=== PATIENT | male | born 1950 | race Caucasian/White ===

== ENCOUNTER 2018-01-03 15:56 | Emergency (ER) | payer BC, MEDICARE, SELFPAY ==
[2018-01-03 15:58] VITALS: BP 152/75; PULSE 66; RESP 16; TEMP 36.8; O2SAT 95; BMI 20.5
--- NOTE | 2018-01-03 16:10 | ED.VISSUMM ---
- ER Visit Summary Date of Service: 01/03/18 Chief Complaint: Urinary retention History of Present Illness: The patient is a 67 M with decreasing urine output for quite some time. Today he is only able to get a few drops out. He thinks he may have had strictures dilated many years ago but has not followed up. He denies any change in medications. He is not taking any decongestants. Physical Examination: Vital signs unremarkable. Patient seen in a bedside chair no acute distress. Heart is regular rate and rhythm. Lung sounds are clear Abdomen is soft with tenderness in the suprapubic region. Test Results: Urinalysis does show 10-25 white cells with rare bacteria. Emergency Department Course and Treatment: Patient was able to urinate only about 15-20 cc of urine. Bladder scan performed following this still showed 165 cc or so of urine. A 16 Yoruba catheter was attempted but unsuccessful. A 14 Yoruba coud? apparently was inserted to the hub, but they were unable to inflate the balloon. It was pulled out and the balloon was checked. When it was reinserted a coiled and patient did have some bleeding noted. Patient has been able to get up and ambulate since this but is only passing 15-20 cc of urine at a time. He states it is not bloody. Patient would prefer a trial without catheterization. I spoke with Dr. Vidal. Patient will be treated with an antibiotic. If patient worsens he will return and may require dilation at that time. Treatment Plan: [] Disposition: Discharge Impression: Cystitis This note was generated with [id number] dictation software. It may contain incorrect words, spelling, and punctuation that were not noted in review of the chart prior to signing ED Disposition - Plan for ED Patient: Chief Complaint: Complaint Referrals: NOT,DEFINED [NON-STAFF] -
[2018-01-03 17:22] LABS: Mucous, Urine 0 SEEN /hpf (<or=2+); Red Blood Cells-Urine 0 SEEN /hpf (0-5)
[2018-01-03 17:27] LABS: Color, Urine Yellow (Yellow); Glucose, Dipstick Normal (Normal); Ketone-Dipstick Negative (Negative); Leukocyte Esterase-Dipstick 500 /ul (Negative); Nitrite-Dipstick Negative (Negative); Occult Blood-Urine 10 /ul (Negative); Protein-Dipstick 15 mg/dl (Negative); Specific Gravity, Urine 1.015 (1.002-1.030); Urine Bilirubin Dipstick Negative (Negative); Urine Clarity Clear (Clear); Urine Urobilinogen Normal (Normal)
[2018-01-03] MEDS: Lidocaine Jelly 2% 20 ML Syringe (URO-JET) 20 APPLIC TOPICAL (17:52)
[2018-01-03 17:53] LABS: Squamous Epithelial Cells - UA 0-5 SEEN /hpf (0-5)
--- NOTE | 2018-01-03 17:53 | ED.RN ---
multiple cath attempts made. Initial cath was 16 stokes. unable to pass prostate. sterile insertion. second catheter was a 14 stokes with coude tip. catheter inserted to y. no urine output. resistance with attempts to inflate balloon. balloon no full inflated. second attempted made with coude catheter without completely removing from penis. dr called into room. when removing catheter blood was noted on catheter and small amount of blood on penis. odette smiley rn [id number]
[2018-01-03 17:54] LABS: Bacteria RARE /hpf (None Seen); White Blood Cells 10-25 SEEN /hpf (0-5)
--- NOTE | 2018-01-03 18:40 | ED.DEP ---
ED Disposition - Plan for ED Patient: Disposition: Home or Assisted Living Chief Complaint: Complaint Instructions: ED UTI Cystitis Male, ED Retention Urinary Male Prescriptions: Tamsulosin HCl [Flomax] 0.4 mg PO DAILY #7 capsule Ciprofloxacin [Cipro] 500 mg PO BID #6 tablet Referrals: Kelvin Vidal MD [STAFF PHYSICIAN] - As soon as possible
[2018-01-03 18:53] VITALS: PULSE 78; RESP 14; O2SAT 98
[2018-01-03] MEDS: Ciprofloxacin 500 MG Tablet PO (18:54)
== END 2018-01-03 18:55 | disposition home or self-care (01) ==
PROVIDERS: Emergency Provider Emergency Medicine
DX: N30.90 Cystitis, unspecified without hematuria (principal); Z72.0 Tobacco use
CPT/HCPCS: 51702; 81001; 87077; 87086; 87088; 99283

== ENCOUNTER 2018-01-09 13:51 | Day surgery (SDC) | payer MEDICARE, SELFPAY ==
[2018-01-09 14:12] VITALS: BP 135/69; PULSE 56; RESP 16; TEMP 36.8; O2SAT 97; BMI 20.3
--- NOTE | 2018-01-09 15:36 | DCINST_ITS ---
Discharge Diet: Light diet - advance as tolerated Discharge Activity: Return to Normal Activity Call your doctor if your incision/area has: Continuous Slow Oozing, Sudden Increased Bleeding, Increased Pain/ Swelling, Increased Redness Suture Line Care: Avoid Pulling/Pushing, Avoid Pinching/Bending Catheter: Batista to leg bag, Batista to large bag Drain: [place] Additional Instructions: take ibuprofen, tylenol, asprin for pain or discomfort use OTC AZO for burning. Allergies/Adverse Reactions: Allergies No Known Allergies Allergy (Verified 01/08/18 10:25) Medications to take at Discharge Tamsulosin HCl [Flomax] 0.4 mg PO DAILY #7 capsule 01/03/18 Ibuprofen [Ibuprofen Ib] 200 mg PO PRN PRN 01/08/18 Primary Care Physician: Care Physician,No Primary [Primary Care Provider] - Test Results: Test results from this visit will be discussed in further detail at your follow- up appointment, if applicable. Please Follow Up With: Kelvin Vidal MD When: in 2 weeks, please call to make an appointment.
[2018-01-09] MEDS: Cefazolin 2 GM in 0.9% Normal Saline 100 ML IV (15:40)
--- NOTE | 2018-01-09 16:07 | PCM.OPRPT ---
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 Post-Operative Diagnosis: Same Surgery/Procedure Performed:: Cystoscopy and direct vision internal urethrotomy and placement of a catheter over a wire Description of Surgical Findings:: 67-year-old male taken back to the operating room at the smooth induction of general anesthesia, is placed in dorsolithotomy position, penis and testicles are prepped and draped in usual sterile fashion, went into the urethra with a 24 Yoruba urethrotome entire length the urethra was okay once I came down to the bulbar urethra then there was a dense stricture to the urethrotome we put in the night set and then was able to get the wire through a little pinhole the wire went all the way up to the bladder to the pinhole and then I used the cold knife to cut at the 12 o'clock position and opened up the urethra scar tissue until I could see the sphincter the strictures in the bulbar urethra probably about 1.5 cm in length and was right before the sphincter after cutting his open went into the bladder no tumors were seen was we are seen within the bladder the prostate was normal, I then removed the urethrotome attend the place a Batista catheter however was going to the bladder saw him back in the wire into the bladder and then over the wire I placed a 20 Yoruba catheter that went into the bladder left the catheter in place flush the catheter and the patient anesthetic was reversed plan to see him in about 2 weeks to remove the catheter. Type of Anesthesia:: General Drains: 20 fr Batista - Admit VTE Documentation VTE Present on Admission: No
[2018-01-09 16:18] VITALS: BP 114/77; BP 135/69; PULSE 55; RESP 16; TEMP 36.7; O2SAT 95
[2018-01-09 16:30] VITALS: BP 112/49; BP 135/69; PULSE 56; RESP 16; O2SAT 97
[2018-01-09 16:45] VITALS: BP 127/82; BP 135/69; PULSE 52; RESP 16; TEMP 36.4; O2SAT 96
[2018-01-09 17:25] VITALS: BP 122/72; BP 135/69; PULSE 64; RESP 16; TEMP 36.3; O2SAT 97
== END 2018-01-09 17:30 | disposition home or self-care (01) ==
LOC: SDC 13:52 → AC 13:53
PROVIDERS: Referring Provider Urology; Visit Provider Urology
PROC: 0T7D8ZZ Dilation of Urethra, Via Natural or Artificial Opening Endoscopic (ICD-10-PCS; CPT 52276; principal; 2018-01-09 15:25)
DX: N35.812 Other bulbous urethral stricture, male (principal); R35.0 Frequency of micturition; R33.8 Other retention of urine; R39.12 Poor urinary stream; F17.200 Nicotine dependence, unspecified, uncomplicated; Z86.73 Personal history of transient ischemic attack (TIA), and cerebral infarction without residual deficits
CPT/HCPCS: 52276; J7120; C1769; J2405

== ENCOUNTER → 2018-05-11 14:39 | Outpatient (CLI) | payer MEDICARE, SELFPAY | PROVIDERS: Referring Provider Urology; Visit Provider Urology | DX: R30.0 Dysuria (principal) | CPT/HCPCS: 87077; 87086; 87088; 87186 ==

== ENCOUNTER → 2018-07-06 | Outpatient (CLI) | payer MEDICARE, SELFPAY ==
[2018-07-06 17:38] LABS: Absolute Lymphocyte Count 2.87 X10^3/ul (0.83-4.51); Absolute Neutrophil Count 9.1 X10^3/uL (2.0-7.7); Basophil# 0.02 X10^3/uL; Basophil% 0.1 % (0-1); Eosinophil# 0.19 X10^3/uL; Eosinophils% 1.4 % (0-5); Hematocrit 37.7 % (40-54); Hemoglobin 12.7 g/dl (13.0-16.5); Lymphocyte # 2.87 X10^3/ul (4.0); Lymphocyte % 20.8 % (19-41); Mean Corp Hgb Conc 33.7 g/gl (32-36); Mean Corpuscular Hgb 28.4 pg (27.0-32.0); Mean Corpuscular Volume 84.3 fL (80-94); Monocyte# 1.52 X10^3/uL; Neutrophil # 9.12 X10^3/uL (2.7-7.7); Neutrophil % 66.3 % (47-70); Platelet Count 456 K/mm3 (150-450); RBC Distribution Width CV 14.7 % (11.6-14.6); RBC Distribution Width SD 45.7 fl (35.1-43.9); Red Blood Count 4.47 M/mm3 (4.6-6.2); White Blood Count 13.8 K/mm3 (4.4-11.0)
[2018-07-06 17:39] LABS: Differential Indicated SCAN CRITERIA MET; POSITIVE COUNT NO; POSITIVE DIFFERENTIAL YES; POSITIVE MORPHOLOGY NO
[2018-07-06 18:39] LABS: Differential Comment SCANNED; Platelet Estimate SLT INC (ADEQ)
[2018-07-06 18:49] LABS: ALB/GLOB Ratio 0.6 RATIO (0.9-2.4); AST(SGOT) 15 U/L (15-37); Alanine Aminotransfer ALT/SGPT 20 U/L (16-61); Albumin, Serum 2.7 g/dL (3.2-5.0); Alkaline Phosphatase 623 U/L (45-117); Anion Gap 8 (5-15); BUN 18 mg/dL (7-18); Calcium,Total 9.1 mg/dL (8.5-10.1); Chloride 100 mmol/L (98-107); Creatinine, Serum 0.78 mg/dL (0.70-1.30); EST Glomerular Filtration Rate 105 mL/min (>60); Est Glom Filt Rate - Afr Amer 127 mL/min (>60); Globulin 4.9 g/dL (2.2-4.2); Glucose 98 mg/dL (74-106); PSA,Total- Diagnostic > 2000.00 ng/mL (0.0-4.0); Potassium 4.1 mmol/L (3.5-5.1); Protein, Total 7.6 g/dL (6.4-8.2); Sodium Level 136 mmol/L (136-145)
[2018-07-08 16:01] LABS: Pathologist Review Reviewed
== END | disposition home or self-care (01) ==
LOC: LAB 16:13
PROVIDERS: Family Provider Nurse Practitioner Family; PCP Nurse Practitioner Family; Referring Provider Nurse Practitioner Family; Visit Provider Nurse Practitioner Family
DX: C79.9 Secondary malignant neoplasm of unspecified site (principal)
CPT/HCPCS: 36415; 80053; 84153; 85025

== ENCOUNTER → 2018-07-28 16:45 | Outpatient (CLI) | payer MEDICARE, SELFPAY ==
--- NOTE | 2018-07-28 08:00 | PROSBIL_PTH ---
PATIENT: TAMIKO NAGY LOC: [facility] U#:[id number] AGE/SX: 74/M ROOM: RE07/28/[address]: Dr. Kelvin Vidal MD : [id number] BED: DIS: SPEC #: [id number] RECD: 07/28/18 16:48 STATUS: NEVAEH ESTRELLA #: [id number] ARTURO: 07/28/18 08:[address]: Kelvin Vidal DEPT: SURGICAL PATHOLOGY RECD BY: Jack Parks ENTERED: 07/29/18 09:27 SP TYPE: PROST BX JENNIFER DR: Xander Bolivar, CHALO-C Tissues: A - PROSTATE RIGHT B - PROSTATE RIGHT C - PROSTATE RIGHT D - PROSTATE LEFT E - PROSTATE LEFT F - PROSTATE LEFT Procedures: PROSTATE BX HEADER OPERATION: Prostate biopsy PRE-OP DIAGNOSIS: Elevated PSA TISSUE SUBMITTED: A - Right apex, B - Right mid, C - Right base, D - Left apex, E - Left mid, F - Left base MICROSCOPIC DIAGNOSIS A. Right prostate, apex, core biopsy: Adenocarcinoma: Angwin grade: 7 (4+3) Cores involved: 2 out of 2 Tissue involved: 80% Greatest tumor length: 3.5 mm Perineural invasion: Present B. Right prostate, mid, core biopsy: Adenocarcinoma: Angwin grade: 7 (3+4) Cores involved: 1 out of 1 Tissue involved: 60% Greatest tumor length: 4 mm Perineural invasion: Present C. Right prostate, base, core biopsy: Adenocarcinoma: Angwin grade: 7 (3+4) Cores involved: 1 out of 1 Tissue involved: 85% Greatest tumor length: 10 mm D. Left prostate, apex, core biopsy: Adenocarcinoma: Angwin grade: 7 (3+4) Cores involved: 1 out of 1 Tissue involved: 95% Greatest tumor length: 13 mm Perineural invasion: Present E. Left prostate, mid, core biopsy: Adenocarcinoma: Angwin grade: 7 (3+4) Cores involved: 1 out of 1 Tissue involved: 85% Greatest tumor length: 13 mm Perineural invasion: Present F. Left prostate, base, core biopsy: Adenocarcinoma: Denny grade: 7 (4+3) Cores involved: 1 out of 1 Tissue involved: 95% Greatest tumor length: 13 mm AM:fallon 07/30/18 COMMENT Case has been reviewed in consultation with Dr. Chisholm who concurs with the above diagnosis. IDC:CE MICROSCOPIC DESCRIPTION Slides are reviewed. GROSS DESCRIPTION A - Received is one container designated prostate, right apex. The specimen consists of two elongated fragments of light vazquez-white soft tissue each measuring 0.8 cm in length and 0.1 cm in diameter. The specimen is totally submitted in one cassette. B - Received is one container designated prostate, right mid. The specimen consists of one elongated fragment of light vazquez-white soft tissue measuring 1 cm in length and 0.1 cm in diameter. The specimen is totally submitted in one cassette. C - Received is one container designated prostate, right base. The specimen consists of one elongated fragment of light vazquez-white soft tissue measuring 1.5 cm in length and 0.1 cm in diameter. The specimen is totally submitted in one cassette. D - Received is one container designated prostate, left apex. The specimen consists of one elongated fragment of light vazquez-white soft tissue measuring 1.5 cm in length and 0.1 cm in diameter. The specimen is totally submitted in one cassette. E - Received is one container designated prostate, left mid. The specimen consists of one elongated fragment of light vazquez-white soft tissue measuring 1.5 cm in length and 0.1 cm in diameter. The specimen is totally submitted in one cassette. F - Received is one container designated prostate, left base. The specimen consists of one elongated fragment of light vazquez-white soft tissue measuring 1.5 cm in length and 0.1 cm in diameter. The specimen is totally submitted in one cassette. / AM:fallon 07/29/18 TC:0 [facility]: [id number]
== END ==
PROVIDERS: Family Provider Nurse Practitioner Family; PCP Nurse Practitioner Family; Referring Provider Urology; Visit Provider Urology
DX: R97.20 Elevated prostate specific antigen [PSA] (principal)
CPT/HCPCS: 88305; G0416

== ENCOUNTER → 2022-02-22 | Outpatient (CLI) | payer MEDICARE, SELFPAY ==
--- NOTE | 2022-02-22 08:36 | RAD_ITS ---
STUDY: X-RAY CHEST REASON FOR EXAM: Male, 71 years old. COUGH, SOB TECHNIQUE: PA and lateral views of the chest. COMPARISON: None. FINDINGS: Hyperinflation. Multiple pulmonary nodules in both lungs exhibit diffuse metastatic deposits. Normal size heart. Normal mediastinum and [place]ber[place]. Normal visualized pulmonary arteries. There is atherosclerotic calcification of the aortic arch with tortuosity. Diffuse sclerotic metastasis throughout the appendicular and axial skeletons as well as the ribs. Metastasis is seen involving both humeri. There is no demonstrated abnormality of the visualized soft tissue structures of the upper abdomen. RAD/Chest PA and Lateral IMPRESSION: Hyperinflation. Diffuse bilateral pulmonary nodules. Diffuse sclerotic metastasis involving appendicular and axial skeleton. Electronically Signed: Keyur Irvin MD at 9:06 EST ,
[2022-02-22 09:26] LABS: Hematocrit 40.2 % (40-54); Hemoglobin 13.2 g/dL (13.0-16.5); Mean Corp Hgb Conc 32.8 g/dL (32-36); Mean Corpuscular Hgb 28.9 pg (27.0-32.0); Mean Platelet Vol. 10.6 fl (6.2-12.0); Platelet Count 320 K/mm3 (150-450); RBC Distribution Width CV 13.6 % (11.6-14.6); Red Blood Count 4.57 M/mm3 (4.6-6.2); White Blood Count 13.3 K/mm3 (4.4-11.0)
[2022-02-22 09:50] LABS: ALB/GLOB Ratio 0.7 RATIO (0.9-2.4); AST(SGOT) 14 U/L (15-37); Alanine Aminotransfer ALT/SGPT 18 U/L (16-61); Albumin, Serum 3.2 g/dL (3.2-5.0); Alkaline Phosphatase 89 U/L (45-117); Anion Gap 7 (5-15); BUN 16 mg/dL (7-18); BUN/Creat Ratio 12.4 RATIO (10-20); Calcium,Total 9.3 mg/dL (8.5-10.1); Chloride 101 mmol/L (98-107); Creatinine, Serum 1.29 mg/dL (0.70-1.30); EST Glomerular Filtration Rate 58 mL/min (>60); Est Glom Filt Rate - Afr Amer 71 mL/min (>60); Globulin 4.4 g/dL (2.2-4.2); Glucose 126 mg/dL (74-106); Potassium 3.8 mmol/L (3.5-5.1); Protein, Total 7.6 g/dL (6.4-8.2); Sodium Level 136 mmol/L (136-145)
[2022-02-22 10:04] LABS: D-Dimer Quantitative (DVT/PE) 1.55 FEU/ug/m (0.27-0.49)
== END | disposition home or self-care (01) ==
PROVIDERS: PCP Nurse Practitioner Family; Referring Provider Nurse Practitioner Family; Visit Provider Nurse Practitioner Family
DX: C79.51 Secondary malignant neoplasm of bone (principal); R05.9 Cough, unspecified; R06.02 Shortness of breath; R91.8 Other nonspecific abnormal finding of lung field; J06.9 Acute upper respiratory infection, unspecified
CPT/HCPCS: 36415; 71046; 80053; 85027; 85379; 86140

== ENCOUNTER → 2022-07-25 | Outpatient (CLI) | payer MEDICARE, SELFPAY ==
[2022-07-25 12:03] LABS: Hematocrit 39.4 % (40-54); Hemoglobin 12.9 g/dL (13.0-16.5); Mean Corp Hgb Conc 32.7 g/dL (32-36); Mean Corpuscular Hgb 29.1 pg (27.0-32.0); Mean Corpuscular Volume 88.9 fL (80-94); Mean Platelet Vol. 10.6 fl (6.2-12.0); Platelet Count 294 K/mm3 (150-450); RBC Distribution Width CV 14.4 % (11.6-14.6); RBC Distribution Width SD 46.7 fl (35.1-43.9); RET-HE 33.3 pg (30-35); Red Blood Count 4.43 M/mm3 (4.6-6.2); Reticulocyte Count 2.18 % (0.5-1.5); White Blood Count 11.7 K/mm3 (4.4-11.0)
[2022-07-25 12:46] LABS: Cholesterol 165 mg/dL (200); Ferritin 108 ng/mL (26-388); High Density Lipoprotein 64 mg/dL; Iron 69 ug/dL (65-175); Iron Binding Capacity,Total 352 ug/dL (250-450); PERCENT IRON SATURATION 19.6 % (15.0-55.0); PSA,Total- Diagnostic 0.22 ng/mL (0.0-4.0); Triglycerides 186 mg/dL; Very Low Density Lipoprotein 37 mg/dL (5-40)
[2022-07-25 12:51] LABS: Vitamin D,25 Hydroxy 49.8 ng/mL
[2022-07-25 14:46] LABS: PTHIN 37.8 pg/mL (18.4-80.1)
[2022-08-02 15:08] LABS: Renin, Plasma 3.419 ng/mL/hr (0.167-5.380)
== END | disposition home or self-care (01) ==
PROVIDERS: PCP Nurse Practitioner Family; Referring Provider Nurse Practitioner Family; Visit Provider Nurse Practitioner Family
DX: N18.30 Chronic kidney disease, stage 3 unspecified (principal); C79.51 Secondary malignant neoplasm of bone; C61 Malignant neoplasm of prostate; D64.9 Anemia, unspecified; E78.5 Hyperlipidemia, unspecified
CPT/HCPCS: 36415; 80061; 82306; 82728; 83540; 83550; 83970; 84153; 84244; 85027; 85045

== ENCOUNTER → 2023-01-10 | Outpatient (CLI) | payer MEDICARE, SELFPAY ==
--- NOTE | 2023-01-11 06:58 | PFT ---
INTRODUCTION: The patient is a 72-year-old male who presents for pulmonary function studies secondary to a diagnosis of dyspnea. Respiratory therapy reported good patient effort. Bronchodilators were used during testing. INTERPRETATION: Forced expiration spirometry demonstrates the presence of a mild large airways obstructive ventilatory defect. There was a significant response to aerosolized bronchodilators. Spirograms are of good quality but do not plateau indicating slow emptying of the lungs. Body plethysmography was performed and revealed a decreased TLC to 6.0 L, 82% of predicted, indicative of a mild restrictive ventilatory impairment. Diffusing capacity by single breath CO is reduced to 45% of predicted. IMPRESSION: Partially reversible mild mixed ventilatory defect with disproportionate reduction in diffusing capacity.
== END | disposition home or self-care (01) ==
LOC: PSN 10:37
PROVIDERS: PCP Nurse Practitioner Family; Referring Provider Internal Medicine Critical Care Medicine; Visit Provider Internal Medicine Critical Care Medicine
DX: R06.00 Dyspnea, unspecified (principal)
CPT/HCPCS: 94060; 94726; 94729

== ENCOUNTER → 2023-01-21 | Outpatient (CLI) | payer MEDICARE, SELFPAY ==
[2023-01-21 13:59] VITALS: PULSE 62; PULSE 68; PULSE 70; PULSE 72; PULSE 77; PULSE 80; PULSE 81; PULSE 86; O2SAT 89; O2SAT 90; O2SAT 91; O2SAT 92; O2SAT 93; O2SAT 94
--- NOTE | 2023-01-22 10:06 | PCM.PSN.6M ---
PSN 6 Minute Walk Test 6 Minute Walk Test 6 Minute Walk Test: 6 Minute Walk Test PSN:6-Minute Walk Test Start: 01/21/23 13:58 Freq: Status: Active Protocol: RESP.6MINW Document 01/21/23 13:59 [facility] (Rec: 01/21/23 14:05 [facility] [id number]) 6 Minute Walk Test Date Performed 01/21/23 Time Performed 12:30 Height 5 ft 11 in Weight: 200 lb Weight in Pounds 200.[address]: Frandy Montiel Assistive device used: None Pre-test Oxygen Delivery Method Room Air Pulse Ox 93 Pulse Rate (60-100) 62 Dyspnea Berry Scale (0-10) 0 1st minute Oxygen Delivery Method Room Air Pulse Ox 94 Pulse Rate (60-100) 70 Dyspnea Berry Scale (0-10) 0 Number of Rests Taken 0 2nd minute Oxygen Delivery Method Room Air Pulse Ox 91 Pulse Rate (60-100) 72 Dyspnea Berry Scale (0-10) 1 Number of Rests Taken 0 3rd minute Oxygen Delivery Method Room Air Pulse Ox 89 Pulse Rate (60-100) 77 Dyspnea Berry Scale (0-10) 2 Number of Rests Taken 1 4th minute Oxygen Delivery Method Room Air Pulse Ox 93 Pulse Rate (60-100) 80 Dyspnea Berry Scale (0-10) 2 Number of Rests Taken 0 5th minute Oxygen Delivery Method Room Air Pulse Ox 90 Pulse Rate (60-100) 81 Dyspnea Berry Scale (0-10) 2 Number of Rests Taken 0 6th minute Oxygen Delivery Method Room Air Pulse Ox 92 Pulse Rate (60-100) 86 Dyspnea Berry Scale (0-10) 3 Number of Rests Taken 0 Reported Symptoms Increased Work of Breathing Post-test Oxygen Delivery Method Room Air Pulse Ox 92 Pulse Rate (60-100) 68 Dyspnea Berry Scale (0-10) 1 Full Laps Walked 16 Partial Lap, Number of Tiles Walked 0 Total Distance Walked (ft) 944 Interpretation Interpretation: The patient ambulated 944 feet over the course of 6 minutes beginning on room air without assistive devices. Pretesting oxygen saturation was noted to be 93% on room air. With ambulation, the juanita oxygen saturation was 89%. This represents a significant exertional oxygen desaturation. Recommendations Recommendations: There is no indication for the use of supplemental oxygen at this time. However, close interval follow-up was recommended, given the degree of oxygen desaturation noted during this study.
== END | disposition home or self-care (01) ==
PROVIDERS: PCP Nurse Practitioner Family; Referring Provider Internal Medicine Critical Care Medicine; Visit Provider Internal Medicine Critical Care Medicine
DX: R06.00 Dyspnea, unspecified (principal)
CPT/HCPCS: 94618

== ENCOUNTER → 2023-11-28 | Outpatient (CLI) | payer MEDICARE, SELFPAY ==
--- NOTE | 2023-11-28 14:35 | CT_ITS ---
ACR Level 3 findings have been noted. An addendum which confirms receipt of the report will follow. EXAM: CT CHEST, LUNG CANCER SCREENING WITHOUT INTRAVENOUS CONTRAST CLINICAL INDICATION: smoker quit 2019 1 pack per day for 50 years. TECHNIQUE: Helically acquired images were obtained of the chest without intravenous contrast using low dose (LDCT) lung cancer screening protocol. This CT exam was performed using one or more of the following dose reduction techniques: automated exposure control, adjustment of the mA and/or kV according to patient size, and/or use of iterative reconstruction technique. COMPARISON: Chest radiograph, 02/22/2022 FINDINGS: LUNGS AND PLEURAL SPACES: 2 mm granuloma in the right upper lobe. Centrilobular emphysema. Perifissural 4 mm nodule in the right upper lobe seen on image 124, series 2. Perifissural nodule measuring 4 mm along the minor fissure, (series 601, 82). No pleural effusion or thickening. No pneumothorax. HEART: Coronary artery calcifications. Heart size is normal. No pericardial effusion. MEDIASTINUM: No significant abnormality. No mediastinal or hilar adenopathy. Esophagus is unremarkable. No hiatal hernia. THYROID: No significant abnormality. No thyroid lesions. BONES/JOINTS: Diffuse lytic and sclerotic osseous lesions throughout the visualized osseous structures suggesting sclerotic metastasis. Degenerative changes in the spine. VASCULATURE: Atherosclerosis. LYMPH NODES: No significant abnormality. No enlarged lymph nodes. CT/Low Dose CT Lung Screening IMPRESSION: 1. Diffuse lytic and sclerotic osseous lesions throughout the visualized osseous structures suggesting sclerotic metastasis. 2. ACR Lung CT Screening Reporting And Data System (Lung-RADS) score: 2S - Benign Appearance or Behavior. Additional clinically significant or potentially clinically significant findings are described. Electronically Signed: Niels Clayton DO at 22:30 EDT ,
== END | disposition home or self-care (01) ==
PROVIDERS: PCP Nurse Practitioner Family; Referring Provider Nurse Practitioner Acute Care; Visit Provider Nurse Practitioner Acute Care
DX: F17.210 Nicotine dependence, cigarettes, uncomplicated (principal)
CPT/HCPCS: 71271

== ENCOUNTER → 2024-03-31 | Outpatient (CLI) | payer MEDICARE, SELFPAY ==
--- NOTE | 2024-03-31 08:04 | CDU_ITS ---
Reason For Study: Hx Carotid Stenosis Rt. Velocities/BP Lt. Velocities/BP Prox CCA 56.0/10.7 cm/sec. Prox CCA 6109/13.5 cm/sec. Mid CCA 55.1/14.5 cm/sec. Mid CCA 49.8/10.2 cm/sec. Dist CCA 55.1/16.3 cm/sec. Dist CCA 48.7/12.4 cm/sec. Prox ICA 259.6/88.2 cm/sec. Prox ICA 119.2/33.6 cm/sec. Mid ICA 106.0/24.8 cm/sec. Mid ICA 58.6/21.2 cm/sec. Dist ICA 53.1/22.3 cm/sec. Dist ICA 64.4/23.1 cm/sec. Rt. ICA/CCA = 4.7. Lt. ICA/CCA = 2.4. Prox ECA 67.4/9.7 cm/sec. Prox ECA 139.0/11.6 cm/sec. Rt. Vert. 76.5/16.3 cm/sec. Lt. Vert. 40.4/0.0 cm/sec. Right Extracranial There is heterogeneous, irregular atherosclerotic plaque noted in the right common carotid artery. There is heterogeneous, irregular atherosclerotic plaque noted in the right internal carotid artery. There is heterogeneous, irregular atherosclerotic plaque noted in the right external carotid artery. Antegrade flow is noted in the right vertebral artery. Left Extracranial There is heterogeneous, irregular atherosclerotic plaque noted in the left common carotid artery. There is heterogeneous, irregular atherosclerotic plaque noted in the left internal carotid artery. There is heterogeneous, irregular atherosclerotic plaque noted in the left external carotid artery. Antegrade flow is noted in the left vertebral artery. Procedure Carotid Duplex 65473. This is a Carotid Duplex examination using B-mode, color flow and specral Doppler. Exam performed in department. VL/Carotid Duplex Ultrasound Interpretation Summary Severe (>70%) stenosis right extracranial internal carotid. Mild (<50%) stenosis left extracranial internal carotid. Patent and antegrade vertebrals bilaterally. Ordering Physician: Gina Sharif Referring Physician: Gina Sharif Performed By: Rolly Zhu RVT and Student
--- NOTE | 2024-03-31 08:04 | ART_ITS ---
Reason For Study: PVD Procedure A bilateral lower extremity continuous wave Doppler with analog waveform analysis,segmental pressures,and ankle brachial indexes without exercise. Left Segmental Pressures Left brachial= 126mmHg. Left high thigh = 140mmHg. Left low thigh = 87mmHg. Left calf = 91mmHg. Left posterior tibial artery = 75mmHg. Left dorsalis pedis artery = 62mmHg. Left digit = 40 mmHg. The left dorsalis pedis waveforms are monophasic. The left posterior tibial artery waveforms are monophasic. Right Segmental Pressures Right brachial= 130mmHg. Right low thigh = 144mmHg. Right calf = 103mmHg. Right posterior tibial artery = 107mmHg. Right dorsalis pedis artery = 89mmHg. Right digit = 41 mmHg. The right dorsalis pedis waveforms are biphasic. The right posterior tibial artery waveforms are biphasic. Indices The right ankle brachial index by the dorsalis pedis is 0.68. The right ankle brachial index by the posterior tibial artery is 0.82. The right digital-brachial index is 0.32. The left ankle brachial index by the dorsalis pedis is 0.48. The left ankle brachial index by the posterior tibial artery is 0.58. The left digital-brachial index is 0.31. VL/Lower Ext Art Exam w/o Exercis Interpretation Summary Right LULA 0.82, moderate arterial insufficiency. Doppler/PVR waveforms and segm ental pressures reveal distal SFA/popliteal disease. Left LULA 0.58, moderate arterial insufficiency. Doppler/PVR waveforms and segme ntal pressures reveal proximal SFA disease. Ordering Physician: Gina Sharif Referring Physician: Xander Bolivar NP Performed By: Rolly Zhu RVT and Student
--- NOTE | 2024-03-31 08:04 | AAVD_ITS ---
Reason For Study: HX AAA Repair Aorta Measurements Aorta Doppler Measurements Proximal aorta measures2.07 x 1.98cm. in cross- Peak systolic flow velocities within the proximal sectional axis. aorta measure 79.6 cm/sec. Proximal aorta measures2.29cm. in longitudinal Peak systolic flow velocities within the mid aorta axis. measure 83.2 cm/sec. Mid aorta measures2.37 x 2.27cm. in cross- AAA Repair with EVAR noted sectional axis. Rt Limb Prox -61.4cm/s Mid aorta measures2.00cm. in longitudinal axis. Rt Limb Dist - 52.6 cm/s HX AAA Repair at Mid/Dist AO with EVAR. Lt Limb Prox - 57.0 cm/s Residual AAA measurese 4.22cm x 4.16cm Lt Limb Dist - 57.0 cm/s. Prox Rt EVAR Limb = 1.28cm x 1.22cm x 1.28cm Dist Rt EVAR Limb = 1.32cm x 1.30cm x 1.28cm Prox Lt EVAR Limb = 1.27cm x 1.23cm x 1.30cm Dist Lt EVAR Limb = 1.32cm x 1.30cm x 1.39cm. Left Iliac Artery Left iliac artery measures 1.18 x 1.18 cm. in the cross-sectional axis. Left iliac artery measures 1.18 cm. in the longitudinal axis. Right Iliac Artery Right iliac artery measures 1.04 x 1.04 cm. in the cross-sectional axis. Right iliac artery measures 1.14 cm. in the longitudinal axis. Peak systolic velocity in the right iliac artery measures 47.2 cm/sec. Procedure Aorta IVC Iliac vasculature or bypass grafts 40633. The exam was diagnostic. Exam performed in department. VL/Abd Aortic/IVC Duplex scan Interpretation Summary Patent aortic endograft with normal velocities and no evidence of stenosis. Residual aneurysm sac 4.22 cm with no endoleak visualized Ordering Physician: Gina Sharif Referring Physician: Xander Bolivar Performed By: Rolly Zhu RVT
== END | disposition home or self-care (01) ==
PROVIDERS: PCP Nurse Practitioner Family; Referring Provider Physician Assistant; Visit Provider Physician Assistant
DX: Z48.812 Encounter for surgical aftercare following surgery on the circulatory system (principal); I65.23 Occlusion and stenosis of bilateral carotid arteries
CPT/HCPCS: 93880; 93923; 93978

== ENCOUNTER → 2024-10-01 | Outpatient (CLI) | payer MEDICARE, SELFPAY ==
--- NOTE | 2024-10-01 10:45 | CDU_ITS ---
Reason For Study Reason For Study: Right ICA stenosis Rt. Velocities/BP Lt. Velocities/BP Prox CCA 58.9/6.9 cm/sec. Prox CCA 68.1/11.5 cm/sec. Mid CCA 54.1/10.7 cm/sec. Mid CCA 47.6/10.2 cm/sec. Dist CCA 50.4/8.8 cm/sec. Dist CCA 48.7/10.2 cm/sec. Prox ICA 243.4/59.2 cm/sec. Prox ICA 119.2/20.4 cm/sec. Mid ICA 135.7/22.5 cm/sec. Mid ICA 73.1/8.2 cm/sec. Dist ICA 84.6/22.5 cm/sec. Dist ICA 73.6/20.6 cm/sec. Rt. ICA/CCA = 4.50. Lt. ICA/CCA = 2.50. Prox ECA 62.6/4.1 cm/sec. Prox ECA 169.7/13.8 cm/sec. Rt. Vert. 70/22.5 cm/sec. Lt. Vert. 44.3/10.2 cm/sec. Right Extracranial There is heterogeneous, irregular atherosclerotic plaque noted in the right common carotid artery. There is heterogeneous, irregular atherosclerotic plaque noted in the right internal carotid artery. There is heterogeneous, irregular atherosclerotic plaque noted in the right external carotid artery. Antegrade flow is noted in the right vertebral artery. Left Extracranial There is heterogeneous, irregular atherosclerotic plaque noted in the left common carotid artery. There is heterogeneous, irregular atherosclerotic plaque noted in the left internal carotid artery. There is heterogeneous, irregular atherosclerotic plaque noted in the left external carotid artery. Antegrade flow is noted in the left vertebral artery. Procedure Carotid Duplex 21709. This is a Carotid Duplex examination using B-mode, color flow and specral Doppler. Exam performed in department. VL/Carotid Duplex Ultrasound Interpretation Summary Moderate (50-69%) stenosis right extracranial internal carotid. Mild (<50%) stenosis left extracranial internal carotid. Patent and antegrade vertebrals bilaterally. Ordering Physician: Gina Sharif Referring Physician: Xander Bolivar Performed By: Janine Toure RVT
== END | disposition home or self-care (01) ==
LOC: CVS 10:44
PROVIDERS: PCP Nurse Practitioner Family; Referring Provider Physician Assistant; Visit Provider Physician Assistant
DX: I65.21 Occlusion and stenosis of right carotid artery (principal)
CPT/HCPCS: 93880

== ENCOUNTER → 2024-11-29 | Outpatient (CLI) | payer MEDICARE, SELFPAY ==
--- NOTE | 2024-11-29 13:28 | CT_ITS ---
PROCEDURE: LOW DOSE CT LUNG SCREENING 11/29/2024 REASON FOR EXAM: SMOKER QUIT 2019 TECHNIQUE: Procedure Code: [id number] Modality: CT Procedure: LOW DOSE CT LUNG SCREENING Coronal and Sagittal reconstruction series were provided. One or more dose reduction techniques were used (e.g., Automated exposure control, adjustment of the mA and/or kV according to patient size, use of iterative reconstruction technique). REFERENCE LINK: [employer] Lung-RADS RADIATION DOSE SUMMARY: CTDlvol: 3.18 mGy DLP: 107.6 mGycm COMPARISON: CT chest dated 11/2023 FINDINGS: PULMONARY NODULES: (Only nodules >3mm are reported) Nodules described below are on series 2 unless otherwise specified. Pulmonary Nodules: No suspicious pulmonary nodule. Hardware:Status post median sternotomy Lymph Nodes:Shotty mediastinal lymph nodes stable since previous exams Heart and Vasculature:Mild cardiomegaly.Atherosclerotic calcifications of the thoracic aorta. Thoracic aorta and pulmonary arteries have normal contours; noncontrast technique limits evaluation. Calcifications of the aortic leaflets and mitral annulus. Status post CABG. Lungs and Airways: Severe emphysematous changes with bullous emphysema. Parenchymal scarring seen in the left lower lobe posteriorly. Patent airway. Pleura:No effusion. No pneumothorax. Upper Abdomen:Within normal limits Bones:Diffuse sclerotic metastases throughout the skeleton CT/Low Dose CT Lung Screening IMPRESSION: Diffuse lytic and sclerotic lesions throughout the bone consistent with diffuse metastatic disease. Severe emphysematous changes throughout the lung. Stable mediastinal lymph nodes unchanged. No suspicious pulmonary nodule. No change since previous exam. Lung-RADS Category: 1 NEGATIVE. RECOMMEND 12-MONTH SCREENING LDCT. Other Significant Findings: Diffuse metastatic disease throughout the bone, unc hanged. Mediastinal lymphadenopathy, stable. Reading Location: [facility]
== END | disposition home or self-care (01) ==
LOC: CT 13:15
PROVIDERS: PCP Nurse Practitioner Family; Referring Provider Nurse Practitioner Acute Care; Visit Provider Nurse Practitioner Acute Care
DX: Z12.2 Encounter for screening for malignant neoplasm of respiratory organs (principal); F17.210 Nicotine dependence, cigarettes, uncomplicated
CPT/HCPCS: 71271

== ENCOUNTER → 2025-01-17 | Outpatient (CLI) | payer MEDICARE, SELFPAY | END | disposition home or self-care (01) | LOC: PSN 12:08 | PROVIDERS: PCP Nurse Practitioner Family; Referring Provider Nurse Practitioner Acute Care; Visit Provider Nurse Practitioner Acute Care | DX: J44.89 Other specified chronic obstructive pulmonary disease (principal) | CPT/HCPCS: 94060; 94726; 94729 ==

== ENCOUNTER → 2025-01-18 | Outpatient (CLI) | payer MEDICARE, SELFPAY ==
--- OUTSIDE RECORDS SUMMARY | 2025-01-18 13:38 | XMS RPT_ITS | CCD ---
Author Organization [facility] Care Team Providers Care Transportation Attendant Name Role Phone OSMEL JACKSON - SILVERIO RAO Primary Care Phys ician Silverio Bolivar CNP Primary Care Provider Kelvin Vidal Unavailable Rogelio Bee MD Unavailable Gordo DUNBAR, Meagan Unavailable Silverio Bolivar CNP Primary Care Provider Kelvin Vidal Unavailable Rogelio Bee MD Unavailable Gordo DUNBAR, Meagan Unavailable Silverio Bolivar CNP Primary Care Provider Kelvin Vidal Unavailable Gordo DUNBAR, Meagan Unavailable Silverio Bolivar CNP Primary Care Provider [phone] Silverio Bolivar CNP Primary Care Provider [phone] Kelvin Vidal MD Unavailable Rogelio Bee MD Unavailable Gordo DUNBAR, Meagan Unavailable Kelvin Vidal MD Unavailable [phone] Gordo DUNBAR, Meagan Unavailable Luis Miguel Guy MD Unavailable Tanja Toro Unavailable Unavailabl e Rogelio Bee MD Unavailable Osmel HAND STEMMER, HAND STEMMER-C Silverio Soriano Primary Care Pr ovider Osmel HAND STEMMER, HAND STEMMER-C Silverio Soriano Referring Provi rain Dinesh, Dr. Wise Attending Provider [phone] Dinesh, Dr. iWse Referring Provider Dinesh, Dr. Wise Other Provider Emile, Dr. Boyle Attending Provider [phone] Osmel PET TRAINER, Silverio Mosley Primary Care Provider OSMEL SHUTTLE ROUTE VEHICLE OPERATOR - PET TRAINER, SILVERIO Mosley Primary Care U navailable OSMEL SHUTTLE ROUTE VEHICLE OPERATOR - PET TRAINER, SILVERIO Mosley Attending U navailable OSMEL SHUTTLE ROUTE VEHICLE OPERATOR - PET TRAINER, SILVERIO Mosley Primary Care U navailable OSMEL SHUTTLE ROUTE VEHICLE OPERATOR - PET TRAINER, SILVERIO Mosley Attending U navailable OSMEL SHUTTLE ROUTE VEHICLE OPERATOR - PET TRAINER, SILVERIO Mosley Primary Care U navailable OSMEL SHUTTLE ROUTE VEHICLE OPERATOR - PET TRAINER, SILVERIO Mosley Attending U navailable OSMEL SHUTTLE ROUTE VEHICLE OPERATOR - PET TRAINER, SILVERIO Mosley Attending U navailable OSMEL SHUTTLE ROUTE VEHICLE OPERATOR - PET TRAINER, SILVERIO Mosley Primary Care U navailable Claudia Smith Unavailable JAIR DE, JULIUS Peterson Attending Unavailabl e OSMEL SHUTTLE ROUTE VEHICLE OPERATOR - PET TRAINER, SILVERIO Mosley Primary Care U navailable OSMEL SHUTTLE ROUTE VEHICLE OPERATOR - PET TRAINER, SILVERIO Mosley Primary Care U navailable OSMEL SHUTTLE ROUTE VEHICLE OPERATOR - PET TRAINER, SILVERIO Mosley Attending U navann ADAM MD, JULIUS Peterson Attending Unavailabl e OSMEL SHUTTLE ROUTE VEHICLE OPERATOR - PET TRAINER, SILVERIO Mosley Primary Care U navailable RHIANNA DE, ETHAN Hoover Consulting Unavailable FISH SHUTTLE ROUTE VEHICLE OPERATOR-PET TRAINEREVI Referring Unavailab adrianna ESTRADA MD, DR ARENAS Admitting Unav ann ADAM MD, JULIUS Peterson Consulting Unavailabl kayla SEXTON MD, BECKY Kirk Consulting Unava lisandra ADAM MD, JULIUS Peterson Attending Unavailabl e OSMEL SHUTTLE ROUTE VEHICLE OPERATOR - PET TRAINER, SILVERIO Mosley Primary Care U navailable LUIS MIGUEL GUY Referring Unavailable OSMEL, SILVERIO Mosley Primary Care Unavailable LUIS MIGUEL GUY Referring Unavailable OSMEL, SILVERIO Mosley Primary Care Unavailable Michel DE, Jack Unavailable OSMEL SHUTTLE ROUTE VEHICLE OPERATOR - PET TRAINER, SILVERIO Mosley Attending U navailable OSMEL SHUTTLE ROUTE VEHICLE OPERATOR - PET TRAINER, SILVERIO Mosley Primary Care U navailable OSMEL SHUTTLE ROUTE VEHICLE OPERATOR - PET TRAINER, SILVERIO Mosley Attending U navailable OSMEL SHUTTLE ROUTE VEHICLE OPERATOR - PET TRAINER, SILVERIO Mosley Primary Care U navailable OSMEL SHUTTLE ROUTE VEHICLE OPERATOR - PET TRAINER, SILVERIO Mosley Attending U navailable OSMEL SHUTTLE ROUTE VEHICLE OPERATOR - PET TRAINER, SILVERIO Mosley Primary Care U navailable OSMEL SHUTTLE ROUTE VEHICLE OPERATOR - PET TRAINER, SILVERIO Mosley Primary Care U navailable FISH SHUTTLE ROUTE VEHICLE OPERATOR-PET TRAINER, EVI Attending Unavailab le OSMEL SHUTTLE ROUTE VEHICLE OPERATOR - PET TRAINER, SILVERIO Mosley Primary Care U navailable FROMMELT DO, OSMEL Attending Unavailable OSMEL SHUTTLE ROUTE VEHICLE OPERATOR - PET TRAINER, SILVERIO Mosley Primary Care U navailable FISH SHUTTLE ROUTE VEHICLE OPERATOR-PET TRAINER, EVI Attending Unavailab le OSMEL SHUTTLE ROUTE VEHICLE OPERATOR - PET TRAINER, SILVERIO Mosley Primary Care U navailable MCKEON SHUTTLE ROUTE VEHICLE OPERATOR-PET TRAINER, JOSE Attending Unavailabl e OSMEL SHUTTLE ROUTE VEHICLE OPERATOR - PET TRAINER, SILVERIO Mosley Primary Care U navailable OSMEL SHUTTLE ROUTE VEHICLE OPERATOR - PET TRAINER, SILVERIO Mosley Attending U JENI Reynaga MD Attending Unavailable JENI FREIRE MD Primary Care Unavailable JENI FREIRE MD Admitting Unavailable TAN OBRIEN MD Admitting Unavailable TAN OBRIEN MD Attending Unavailable TAN OBRIEN MD Primary Care Unavailable Vilas HAND STEMMER-CSilverio Primary Care Provi rain Gina Cobb Attending Provider Gina Cobb Referring Provider Dr. Sreedhar Coppola MD Attending Provider Osmel ISABEL-C, Silverio Soriano Primary Care Physi jenniffer Gina Cobb Attending Physician Dr. Sreedhar Coppola MD Attending Physician Luis ISABEL-Claudia Kirk Attending Physician [phone] Luis ISABEL-CClaudia Referring Provider ROGELIO BEE Referring Unavailable SILVERIO BOLIVAR Primary Care Unavailable LUIS MIGUEL GUY Attending Unavailable LUIS MIGUEL GUY Referring Unavailable SLIVERIO BOLIVAR Primary Care Unavailable LUIS MIGUEL GUY Attending Unavailable SILVERIO BOLIVAR Primary Care Unavailable LUIS MIGUEL GUY Referring Unavailable OSMEL, SILVERIO Melany Primary Care Unavailable JACK PEARSON Referring Unavailable ABRAMLUIS MIGUEL SHEARER Referring Unavailable OSMEL, SILVERIO Melany Primary Care Unavailable OSMEL, SILVERIO D Primary Care Unavailable JACK PEARSON Attending Unavailable LUIS MIGUEL GUY Referring Unavailable OSMEL, SILVERIO Melany Primary Care Unavailable JACK PEARSON Attending Unavailable OSMEL, SILVERIO Mosley Primary Care Unavailable MICHELJACK Referring Unavailable OSMEL, SILVERIO Melany Primary Care Unavailable JACK PEARSON Referring Unavailable OSMEL, SILVERIO Melany Primary Care Unavailable LUIS MIGUEL GUY Referring Unavailable OSMEL, SILVERIO Melany Primary Care Unavailable OSMEL, SILVERIO Melany Primary Care Unavailable JACK PEARSON Attending Unavailable JACK PEARSON Referring Unavailable ROGELIO BEE Referring Unavailable OSMEL, SILVERIO Mosley Primary Care Unavailable LUIS MIGUEL GUY Attending Unavailable LUIS MIGUEL GUY Referring Unavailable OSMEL, SILVERIO Melany Primary Care Unavailable ROGELIO BEE Referring Unavailable OSMEL, SILVERIO Mosley Primary Care Unavailable LUIS MIGUEL GUY Attending Unavailable LUIS MIGUEL GUY Referring Unavailable OSMEL, SILVERIO Melany Primary Care Unavailable LUIS MIGUEL GUY Referring Unavailable OSMEL, SILVERIO Melany Primary Care Unavailable LUIS MIGUEL GUY Attending Unavailable OSMEL, SILVERIO Mosley Primary Care Unavailable ROGELIO BEE Referring Unavailable OSMEL, SILVERIO Mosley Primary Care Unavailable OSMEL, SILVERIO Melany Primary Care Unavailable JACK PEARSON Referring Unavailable OSMEL, SILVERIO Melany Primary Care Unavailable JACK PEARSON Referring Unavailable JACK PEARSON Referring Unavailable OSMEL, SILVERIO Mosley Primary Care Unavailable LUIS MIGUEL GUY Referring Unavailable OSMEL, SILVERIO Melany Primary Care Unavailable OSMEL, SILVERIO Melany Primary Care Unavailable MICHEL DANAILA Referring Unavailable OSMEL, SILVERIO Melany Primary Care Unavailable MICHEL DANAILA Referring Unavailable OSMEL, SILVERIO Melany Primary Care Unavailable MICHELLEYDIUNG Attending Unavailable OSMEL, SILVERIO Mosley Primary Care Unavailable MICHEL DAISIAHUNG Referring Unavailable OSMEL, SILVERIO Melany Primary Care Unavailable MICHEL DAISIAHUNG Attending Unavailable MICHEL DAISIAHUNG Referring Unavailable OSMEL, SILVERIO Mosley Primary Care Unavailable MICHEL DAISIAHUNG Attending Unavailable MICHEL, DAISIAHUNG Referring Unavailable Osmel HAND STEMMERZoieC, Silverio Soriano Primary Care [facility] Gina Cobb Attending Physician Kole TURNER, Gina Referring Provider [phone] Anat DE, Dr. Eli Attending Physician Luis HAND STEMMER-C, Claudia Attending Physician Smith HAND STEMMER-C, Claudia Referring Provider Osmel HAND STEMMER-C, Silverio Soriano Referring Provider Vilas HAND STEMMER, Silverio Bo Primary Care Unav ailable Smith HAND STEMMER, Claudia Attending Unavailable Smith HAND STEMMER, Claudia Referring Unavailable Sharif, Gina Referring Unavailable Sharif, Gina Attending Unavailable Osmel HAND STEMMER, Silverio Bo Primary Care Unav ailable Sharif, Gina Referring Unavailable Madison, Sreedhar Attending Unavailable Vilas HAND STEMMER, Silverio Bo Primary Care Unav ailable Sharif, Gina Referring Unavailable Anat, Sreedhar Attending Unavailable Vilas HAND STEMMER, Silverio Bo Primary Care Unav ailable Osmel HAND STEMMER, Silverio Bo Referring Unav ailable Vilas HAND STEMMER, Silverio Bo Primary Care Unav ailable Smith HAND STEMMER, Claudia Attending Unavailable Vilas HAND STEMMER, Silverio Bo Primary Care Unav ailable Osmel HAND STEMMER, Silverio Bo Referring Unav ailable Sharif, Gina Attending Unavailable Sharif, Gina Referring Unavailable Sharif, Gina Attending Unavailable Vilas HAND STEMMER, Silverio Bo Primary Care Unav ailable Vilas HAND STEMMER, Sivlerio Bo Primary Care Unav ailable Smith HAND STEMMER, Claudia Attending Unavailable Smith HAND STEMMER, Claudia Referring Unavailable Vilas HAND STEMMER, Silverio Bo Primary Care Unav ailable Smith HAND STEMMER, Claudia Attending Unavailable Smith HAND STEMMER, Claudia Referring Unavailable Allergies Allergy Classification Reported Allergen(s) Allergy Type Date of Onset Reaction(s) Facility (20 sources) tiZANidine; Translations: [tizanidine] Drug Allergy 3 Unsteady when standing (finding), Drowsy (finding) [facility] Comment on above: drowsy/ unsteady on feet/ loopy (1 source) tiZANidine Drug Allergy 5 [facility] Repository Medications Current Medications Medication Drug Class(es) Dates Sig (Normalized) Sig (Original) acetaminophen 650 mg oral tablet (20 sources) Start: 05-13-2024 acetaminophen Dose : 650 mg = 2 tab(s), Oral, q4h, PRN Pain, scale 1-10, 0 Refill(s) Start Date: 05/13/24 Status: Ordered Repeat number: 1 take 1 tablet by rj th every eight hours as needed acetaminophen (TYLENOL EXTRA STRENGTH) 5 00 mg tablet Take 500 mg by mouth every 8 hours as needed. Active Adult Aspirin Regimen 81 mg oral delayed release tablet (13 sources) Start: 02-14-2023 Adult Aspirin Regimen 81 mg oral delayed release tablet Dose : 81 mg = 1 tab(s), Oral, qDay, # 90 tab(s), 1 Refill(s), Pharmacy: [facility], 180, cm, 02/14/23 9:48:00 EST, Height, kg, 02/14/23 9:48:00 EST, Dosing Weight Start Date: 02/14/23 Status: Ordered Quantity: 90.0 Unit: tab(s) Repeat number: 2 Start: 02-14-2023 Adult Aspirin Regimen 81 mg oral delayed release tablet Dose : 81 mg = 1 tab(s), Oral, qDay, # 90 tab(s), 1 Refill(s), Pharmacy: [facility], 180, cm, 02/14/23 9:48:00 EST, Height, kg, 02/14/23 9:48:00 EST, Dosing Weight Start Date: 02/14/23 Status: Ordered Start: 01-24-2022 Adult Aspirin Regimen 81 mg oral delayed release tablet Dose : 81 mg = 1 tab(s), Oral, qDay, # 90 tab(s), 1 Refill(s), [facility], 180, cm, 01/24/22 10:29:00 EST, Height, kg, 01/24/22 10:29:00 EST, Dosing Weight Start Date: 01/24/22 Status: Ordered Start: 05-25-2021 Adult Aspirin Regimen 81 mg oral delayed release tablet Dose : 81 mg = 1 tab(s), Oral, qDay, # 30 tab(s), 6 Refill(s) Start Date: 05/25/21 Status: Ordered aspirin 81 mg delayed release oral tablet (20 sources) Platelet Aggregation Inhibitor, Nonsteroidal Anti-inflammatory Drug Start: 05-14-2021 take 1 tablet by mouth once daily Comment on above: Take 1 tablet by rj th once daily. atorvastatin 40 mg oral tablet (20 sources) HMG-CoA Reductase Inhibitor Start: 12-28-2024 take 1 table t by mouth once daily Start: 05-13-2024 atorvastatin 4 0 mg oral tablet Dose : 40 mg = 1 tab(s), Oral, qDay, # 90 tab(s), 1 Refill(s), Pharmacy: [id number], 177.8, cm, 06/10/24 14:30:00 EDT, Height, kg, 06/10/24 14:30:00 EDT, Dosing Weight Start Date: 06/10/24 Status: Ordered Quantity: 90.0 Unit: tab(s) Repeat number: 2 B-complex with vitamin C (SUPER B COMPLEX-VITAMIN C ORAL) (20 sources) take 1 tablet by mouth once daily B-complex with vitamin C (SUPER B COMPLEX-VITAMIN C ORAL) Take 1 tablet by mouth once daily. Active take 1 tablet by mouth once jak y B-complex with vitamin C (SUPER B COMPLEX- VITAMIN C ORAL) Take 1 tablet by mouth once daily. 0 Active Comment on above: Take 1 tablet by rj th once daily. bumetanide 1 mg oral tablet (2 sources) Loop Diuretic Start: 05-13-2024 Bumex Dose : 1 mg = 1 tab(s), Oral, qAM, 0 Refill(s) Start Date: 05/13/24 Status: Ordered Repeat number: 1 calcium carbonate 1500 mg oral tablet (6 sources) Start: 01-01-2023 take 1 tablet by mouth once daily Start: 10-08-2018 take 1 tablet by rj th once daily Caltrate 600 + D oral tablet Dose = 1 tab(s), Oral, Daily, 0 Refill(s) Start Date: 10/08/18 Status: Ordered clopidogrel 75 mg oral tablet (20 sources) [id number] Platelet Inhibitor Start: 12-28-2024 take 1 tablet by mouth once daily Start: 05-13-2024 Plavix 75 mg o ral tablet Dose : 75 mg = 1 tab(s), Oral, qDay, # 90 tab(s), 1 Refill(s), Pharmacy: [facility], 177.8, cm, 06/10/24 14:30:00 EDT, Height, kg, 06/10/24 14:30:00 EDT, Dosing Weight Start Date: 06/10/24 Status: Ordered Quantity: 90.0 Unit: tab(s) Repeat number: 2 docusate sodium 100 mg oral capsule (20 sources) Start: 10-29-2019 take 1 capsule by mouth every twelve hours as needed docusate sodium (COLACE) 100 mg capsule Take 1 capsule by mouth twice daily as needed. 10/29/2019 Active Comment on above: Take 1 capsule by mo uth twice daily as needed. enzalutamide 40 mg oral capsule (20 sources) Androgen Receptor Inhibitor Start: 02-24-2024 take 4 tablets by mouth once daily enzalutamide (XTANDI) 40 mg tablet Take 4 tablets (160mg) by mouth once daily as directed by physician. 120 tablet 10 02/24/2024 Active Start: 03-12-2023 End: 04-28-2024 take 4 capsules by mouth once daily in the evening enzalutamide (XTANDI) 40 mg capsule Indications: Malignant neoplasm of prostate (HCC) Take 4 capsules (160mg) by mouth once daily. 120 capsule 11 10/05/2024 1:54 PM EDT 04/29/2024 Active Start: 02-14-2023 take 1 tablet by rj once daily Start: 12-24-2022 take 4 capsules by m outh once daily enzalutamide (XTANDI) 40 mg Indications: Malignant neoplasm of prostate (HCC) Take 4 capsules (160mg) by mouth once daily. 120 capsule 5 12/24/2022 Active Comment on above: Take 4 capsules (160 mg) by mouth once daily. famotidine 20 mg oral tablet (20 sources) Histamine-2 Receptor Antagonist Start: 12-28-2024 take 1 tablet by mouth twice daily Start: 05-24-2024 End: 11-20-2024 take 1 tablet by mouth twice daily famotidine (PEPCID) 20 mg tablet Take 20 mg by mouth two times a day. 05/24/2024 11/20/2024 Active Rdrrpkbybir-Emzgcfres-Yoxiqd er (15 sources) Start: 03-11-2024 Start: 03-11-2024 Start: 03-11-2024 Fluticasone-Um eclidin-Vilanter (Trelegy Ellipta) 200-62.5-25 mcg blister with device Active 1 NMA INHALATION DAILY 3 March 11, 2024 9:04am Start: 04-10-2023 End: 03-11-2024 Bnjwpindhjl-Lqspssjqd-Pxghvg er (Trelegy Ellipta) 200-62.5-25 mcg blister with device Discontinued 1 NMA INHALATION DAILY 3 April 10, 2023 7:57am March 11, 2024 8:04am Start: 04-10-2023 End: 03-11-2024 Cqclabwkljk-Rxlidkzzp-Lulnso er (Trelegy Ellipta) 200-62.5-25 mcg blister with device Discontinued 1 NMA INHALATION DAILY 3 April 10, 2023 8:57am March 11, 2024 9:04am Start: 04-10-2023 End: 04-10-2023 Vvxcgonecxw-Abznesinx-Pvcslw er (Trelegy Ellipta) 200-62.5-25 mcg blister with device Discontinued 1 NMA INHALATION DAILY 3 April 10, 2023 7:56am April 10, 2023 7:57am Start: 04-10-2023 End: 04-10-2023 Gxxzzukdhrz-Mdtqzbnwn-Vbxekv er (Trelegy Ellipta) 200-62.5-25 mcg blister with device Discontinued 1 NMA INHALATION DAILY 3 3 April 10, 2023 8:56am April 10, 2023 8:57am Start: 03-18-2023 End: 04-10-2023 Lnkdmiaqvds-Bpnnenuad-Secysl er (Trelegy Ellipta) 200-62.5-25 mcg blister with device Discontinued 1 NMA INHALATION DAILY 60 March 18, 2023 2:05pm April 10, 2023 7:57am Start: 03-18-2023 End: 04-10-2023 Blduwyrtimj-Ejgnpbgvk-Zbmplz er (Trelegy Ellipta) 200-62.5-25 mcg blister with device Discontinued 1 NMA INHALATION DAILY 60 March 18, 2023 3:05pm April 10, 2023 8:57am Start: 03-11-2023 End: 03-18-2023 Gjiqreucwrh-Tpfjuepgt-Qhjxaj er (Trelegy Ellipta) 200-62.5-25 mcg blister with device Discontinued 1 NMA INHALATION DAILY 60 March 11, 2023 12:00am March 18, 2023 2:05pm Start: 03-11-2023 End: 03-18-2023 Mmqlesmvwzh-Dxnuwpmpf-Seaqeh er (Trelegy Ellipta) 200-62.5-25 mcg blister with device Discontinued 1 NMA INHALATION DAILY 60 March 11, 2023 1:00am March 18, 2023 3:05pm pwnzmankazc-iqsgqolzb-aptcll er (TRELEGY ELLIPTA) 200-62.5-25 mcg inhalation powder (20 sources) take 1 puff(s) by inhalation once daily bgyledklvai-xktprylve-wveksxam (TRELEGY ELLIPTA) 200-62.5-25 mcg inhalation powder Inhale 1 Puff as instructed once daily. Active take 1 puff(s) by in halation once daily xyahvqvzmag-lrepzsqwo-tqhsjavg (TRELEGY ELLIPTA) 200-62.5-25 mcg inhalation powder Inhale 1 Puff as instructed once daily. 0 Active Comment on above: Inhale 1 Puff as ins tructed once daily. hydroCHLOROthiazide 12.5 mg oral capsule (20 sources) Thiazide Diuretic Start: hydroCHLOROthiazide 12.5 mg oral capsule Dose : 12.5 mg = 1 cap(s), Oral, qDay, # 90 cap(s), 1 Refill(s), Pharmacy: [facility], HTN, goal below 140/90, 180, cm, 07/19/21 11:20:00 EDT, Height, kg, 07/19/21 11:20:00 EDT, Dosing Weight Start Date: 01/14/22 Status: Ordered Start: 04-16-2021 hydroCHLOROthi azide 12.5 mg oral capsule Dose : 12.5 mg = 1 cap(s), Oral, qDay, # 90 cap(s), 2 Refill(s), Pharmacy: [facility], HTN, goal below 140/90, 180, cm, 01/19/21 10:51:00 EST, Height, kg, 01/19/21 10:51:00 EST, Dosing Weight Start Date: 04/16/21 Status: Ordered Start: 07-13-2020 End: 04-09-2021 hydroCHLOROthiazide 12.5 mg oral capsule Dose : 12.5 mg = 1 cap(s), Oral, qDay, # 90 cap(s), 2 Refill(s), Pharmacy: [facility], HTN, goal below 140/90, 180, cm, 07/13/20 10:34:00 EDT, Height, kg, 07/13/20 10:34:00 EDT, Dosing Weight Start Date: 07/13/20 Stop Date: 04/09/21 Status: Ordered take 1 tablet by rj th once daily hydroCHLOROthiazide (HYDRODIURIL, ESIDRIX) 12.5 mg tablet Take 12.5 mg by mouth once daily. Active Comment on above: Take 12.5 mg by mout h once daily. 24 hr isosorbide mononitrate 30 mg extended release oral tablet (1 source) Nitrate Vasodilator Start: 04-23-2024 isosorbide mononitrate 30 mg oral tablet, extended release Dose : 30 mg = 1 tab(s), Oral, qAM, # 30 tab(s), 5 Refill(s), Pharmacy: [facility], 178, cm, 03/25/24 14:07:00 EST, Height, kg, 04/19/24 9:07:00 EST, Dosing Weight Start Date: 04/23/24 Status: Ordered Quantity: 30.0 Unit: tab(s) Repeat number: 6 iv contrast (will be provided with radiology test) (20 sources) Start: 12-03-2019 iv contrast (will be provided with radiology test) CT Chest W -Inject, intravenously, once for 1 dose.No IV access, insert saline lock prior to the beginning of sedation, infusion, injection of imaging exam. Discontinue saline lock post exam. If Pt. has a central line or IVAD, may access for administration according to line specific nursing protocol. Once exam is complete flush line and de-access according to line specific nursing protocol in the CT contrast administration guidelines link. 1 Each 12/03/2019 Active Start: 12-03-2019 iv contrast (w ill be provided with radiology test) CT Chest W -Inject, intravenously, once for 1 dose.No IV access, insert saline lock prior to the beginning of sedation, infusion, injection of imaging exam. Discontinue saline lock post exam. If Pt. has a central line or IVAD, may access for administration according to line specific nursing protocol. Once exam is complete flush line and de-access according to line specific nursing protocol in the CT contrast administration guidelines link. 1 Each 0 12/03/2019 Active Comment on above: CT Chest W -Inject, intravenously, once for 1 dose.No IV access, insert saline lock prior to the beginning of sedation, infusion, injection of imaging exam. Discontinue saline lock post exam. If Pt. has a central line or IVAD, may access for administration according to line specific nursing protocol. Once exam is complete flush line and de-access according to line specific nursing protocol in the CT contrast administration guidelines link. Lopressor 25mg--USE metoprolol tartrate 25 mg oral tablet (13 sources) Start: 02-26-2024 Lopressor 25mg--USE metoprolol tartrate 25 mg oral tablet Dose : 12.5 mg = 0.5 tab(s), Oral, BID, # 90 tab(s), 1 Refill(s), Pharmacy: [facility], 178, cm, 02/24/24 9:56:00 EST, Height, kg, 02/24/24 9:56:00 EST, Dosing Weight Start Date: 02/26/24 Status: Ordered Quantity: 90.0 Unit: tab(s) Repeat number: 2 Start: 11-18-2023 Lopressor 25mg --USE metoprolol tartrate 25 mg oral tablet Dose : 12.5 mg = 0.5 tab(s), Oral, BID, # 90 tab(s), 0 Refill(s), Pharmacy: [facility] 177, cm, 09/04/23 8:14:00 EDT, Height, kg, 09/04/23 8:14:00 EDT, Dosing Weight Start Date: 11/18/23 Status: Ordered Start: 08-08-2023 Lopressor 25mg --USE metoprolol tartrate 25 mg oral tablet Dose : 12.5 mg = 0.5 tab(s), Oral, BID, # 90 tab(s), 0 Refill(s), Pharmacy: [facility] 178, cm, 05/09/23 9:38:00 EST, Height, kg, 05/09/23 9:38:00 EST, Dosing Weight Start Date: 08/08/23 Status: Ordered Start: 08-02-2022 End: 01-29-2023 Lopressor 25mg--USE metoprol ol tartrate 25 mg oral tablet Dose : 12.5 mg = 0.5 tab(s), Oral, BID, # 90 tab(s), 1 Refill(s), Pharmacy: [facility], 180, cm, 08/02/22 8:30:00 EDT, Height, kg, 08/02/22 8:30:00 EDT, Dosing Weight Start Date: 08/02/22 Stop Date: 01/29/23 Status: Ordered Start: 05-17-2021 End: 02-11-2022 Lopressor 25mg--USE metoprol ol tartrate 25 mg oral tablet Dose : 12.5 mg = 0.5 tab(s), Oral, BID, # 90 tab(s), 2 Refill(s), 180, cm, 04/20/21 14:12:00 EST, Height, kg, 04/20/21 14:12:00 EST, Dosing Weight Start Date: 05/17/21 Stop Date: 02/11/22 Status: Ordered Metoprolol (20 sources) beta-Adrenergic Brian Start: 05-13-2024 metopr olol Dose : 12.5 mg =, Oral, BIDM, 0 Refill(s) Start Date: 05/13/24 Status: Ordered Repeat number: 1 Start: 10-07-2018 End: 06-04-2021 take 1 tablet by mouth twice daily metoprolol tartrate, short acting, (LOPRESSOR) 25 mg tablet TAKE 1/2 (ONE-HALF) TABLET BY MOUTH TWICE DAILY 30 tablet 2 10/07/2018 Active Start: 07-30-2018 Start: 07-30-2018 take 12.5 mg by mout h twice daily Metoprolol Tartrate Active 12.5 MG PO TWICE A DAY July 29, 2018 11:00pm Comment on above: TAKE 1/2 (ONE-HALF) TABLET BY MOUTH TWICE DAILY naproxen 250 mg oral tablet (3 sources) Nonsteroidal Anti-inflammatory Drug Start: 5 naproxen 250 mg oral tablet Dose : 250 mg = 1 tab(s), Oral, BID, # 180 tab(s), 0 Refill(s) Start Date: 03/25/24 Status: Ordered Quantity: 180.0 Unit: tab(s) Repeat number: 1 potassium chloride 20 meq oral tablet (2 sources) Start: 5 potassium chloride 20 mEq oral tablet, extended release Dose : 20 mEq = 1 tab(s), Oral, qDay, 0 Refill(s) Start Date: 05/13/24 Status: Ordered Repeat number: 1 tamsulosin hydrochloride 0.4 mg oral capsule (20 sources) alpha-Adrenergic Brian Start: 4 End: 5 take 1 capsule by mouth at bedtime Start: 01-03-2018 End: 07-30-2018 take 1 capsule by mouth once daily Tamsulosin 0.4 MG capsule Discontinued 0.4 mg PO DAILY 7 January 02, 2018 11:00pm July 30, 2018 9:07am Comment on above: Take 1 capsule by [facility] once daily. Trelegy Ellipta 100 mcg-62.5 mcg-25 mcg/inh inhalation powder (11 sources) Start: 02-14-2023 take 1 dose by mouth once daily Trelegy Ellipta 100 mcg-62.5 mcg-25 mcg/inh inhalation powder Dose = 1 puff(s), Inhalation, qDay, at the same time every day. Following administration, rinse mouth with water after use (do not swallow)., # 60 EA, 0 Refill(s) Start Date: 02/14/23 Status: Ordered Quantity: 60.0 Unit: EA Repeat number: 1 Start: 02-14-2023 take 1 dose by mouth once daily Trelegy Ellipta 100 mcg-62.5 mcg-25 mcg/inh inhalation powder Dose = 1 puff(s), Inhalation, qDay, at the same time every day. Following administration, rinse mouth with water after use (do not swallow)., # 60 EA, 0 Refill(s) Start Date: 02/14/23 Status: Ordered triamcinolone acetonide 1 mg/ml topical cream (20 sources) Corticosteroid Start: 02-26-2024 triamcinolone 0.1% topical cream See Instructions, to affected area BID, # 30 gram(s), 1 Refill(s), Pharmacy: [id number], Cream, 178, cm, 02/24/24 9:56:00 EST, Height, 101.3, kg, 02/24/24 9:56:00 EST, Dosing Weight Start Date: 02/26/24 Status: Ordered Quantity: 30.0 Unit: g Repeat number: 2 Start: 02-14-2023 triamcinolone 0.1% topical cream See Instructions, to affected area BID, # 30 gram(s), 3 Refill(s), Pharmacy: [facility], Cream, 180, cm, 02/14/23 9:48:00 EST, Height, 96.5, kg, 02/14/23 9:48:00 EST, Dosing Weight Start Date: 02/14/23 Status: Ordered Start: 01-01-2023 End: 12-28-2024 Triamcinolone Acetonide 0.1 % cream Discontinued 1 NMA TOPICAL TWICE A DAY December 31, 2022 11:00pm December 28, 2024 12:40pm Start: 01-01-2023 End: 01-07-2023 Triamcinolone Acetonide ([place] acort Allergy) 55 mcg aerosol,spray Discontinued 2 NMA INTRANASAL DAILY December 31, 2022 11:00pm January 07, 2023 8:47am administer into each nostril Start: 01-01-2023 End: 01-07-2023 take 1 spray(s) nasal route once daily Triamcinolone Acetonide (Nasacort Allergy) 55 mcg aerosol,spray Discontinued 2 SPRAY INTRANASAL DAILY December 31, 2022 11:00pm January 07, 2023 8:47am administer into each nostril Start: 08-02-2022 triamcinolone 0.1% topical cream See Instructions, to affected area BID, # 30 gram(s), 3 Refill(s), Pharmacy: [facility], Cream, 180, cm, 08/02/22 8:30:00 EDT, Height, 94.8, kg, 08/02/22 8:30:00 EDT, Dosing Weight Start Date: 08/02/22 Status: Ordered Start: 07-24-2021 triamcinolone 0.1% topical cream See Instructions, to affected area BID, # 30 gram(s), 3 Refill(s), Pharmacy: [facility], Cream, 180, cm, 07/19/21 11:20:00 EDT, Height, 90.6, kg, 07/19/21 11:20:00 EDT, Dosing Weight Start Date: 07/24/21 Status: Ordered Start: 04-20-2021 End: 05-20-2021 take 1 dose nasal route once daily Nasacort Allergy 24HR 55 mcg/inh nasal spray Dose = 2 spray(s), Nostril, each, qDay, # 10 mL, 0 Refill(s), Pharmacy: [facility], Nasal congestion with rhinorrhea, 180, cm, 04/20/21 14:12:00 EST, Height, kg, 04/20/21 14:12:00 EST, Dosing Weight Start Date: 04/20/21 Stop Date: 05/20/21 Status: Ordered Start: 04-20-2021 take 2 spray(s) nasa l route once daily triamcinolone acetonide (NASACORT AQ) 55 mcg nasal inhaler Use 2 Sprays in each nostril once daily. 04/20/2021 Active Start: 02-21-2020 triamcinolone 0.1% topical cream See Instructions, to affected area BID, # 30 gram(s), 3 Refill(s), Pharmacy: [facility], Cream, 180, cm, 01/13/20 10:16:00 EST, Height, 91.9, kg, 01/13/20 10:16:00 EST, Dosing Weight Start Date: 02/21/20 Status: Ordered Start: 02-21-2020 triamcinolone 0.1% topical cream See Instructions, to affected area BID, # 30 gram(s), 3 Refill(s), Pharmacy: [id number], Cream, 180, cm, 01/13/20 10:16:00 EST, Height, 91.9, kg, 01/13/20 10:16:00 EST, Dosing Weight Start Date: 02/21/20 Status: Ordered Comment on above: Use 2 Sprays in each nostril once daily. valsartan 160 mg oral tablet (3 sources) Angiotensin 2 Receptor Brian Start: 03-16-2024 valsartan 160 mg oral tablet Dose : 160 mg = 1 tab(s), Oral, Daily, # 30 tab(s), 1 Refill(s), Pharmacy: [facility], 178, cm, 02/24/24 9:56:00 EST, Height, kg, 02/24/24 9:56:00 EST, Dosing Weight Start Date: 03/16/24 Status: Ordered Quantity: 30.0 Unit: tab(s) Repeat number: 2 Vitamin B Complex 100 (6 sources) Start: 03-25-2024 take 1 capsule by mouth once daily Vitamin B Complex 100 Dose = 1 cap(s), Oral, Daily, 0 Refill(s) Start Date: 03/25/24 Status: Ordered Repeat number: 1 Start: 03-25-2024 Vitamin B Comp majo 100 0 Refill(s) Start Date: 03/25/24 Status: Ordered Repeat number: 1 Vitamin B Complex capsule (3 sources) Start: 05-14-2023 Start: 05-14-2023 Start: 05-14-2023 Vitamin B Comp majo capsule Active 1 NMA PO DAILY May 14, 2023 1:00am Completed/Discontinued Medications Medication Drug Class(es) Dates Sig (Normalized) Sig (Original) abiraterone acetate 250 mg oral tablet (20 sources) Cytochrome P450 17A1 Inhibitor Start: 09-12-2021 End: 12-24-2022 take 4 tablets by mouth once daily abiraterone (ZYTIGA) 250 mg tablet Indications: Malignant neoplasm of prostate (HCC) Take 4 tablets (1,000mg) by mouth once daily. 120 tablet 2 11/26/2022 12/24/2022 Discontinued (Course of therapy completed) Start: 06-05-2021 take 4 tablets by mo uth once daily abiraterone (ZYTIGA) 250 mg tablet Indications: Malignant neoplasm of prostate (HCC) , Bone metastases (HCC) Take 4 tablets (1,000mg) by mouth once daily. 120 tablet 2 06/05/2021 Active Start: 10-08-2018 End: 01-07-2023 take 1 tablet by mouth once daily 1 hour(s) after mealtime Abiraterone (Zytiga) 250 mg tablet Discontinued 1000 mg PO DAILY December 31, 2022 11:00pm January 07, 2023 8:47am must be taken on empty stomach, at least 1 hr before or 2 hrs after a meal/food Comment on above: Take 4 tablets (1,00 0mg) by mouth once daily. acetaminophen 325 mg / HYDROcodone bitartrate 10 mg oral tablet (6 sources) Opioid Agonist Start: 07-31-19 End: 01-02-20 Hydrocodone-Acetamin ophen ([place]) 10-325 mg tablet Discontinued 1 {tbl} PO TWICE A DAY as needed 0 July 29, 2018 11:00pm January 01, 2023 11:42am [id number] 200 actuat albuterol 0.09 mg/actuat metered dose inhaler (19 sources) beta2-Adrenergic Agonist Start: 02-15-20 End: 08-13-19 take 1 puff(s) by inhalation every four hours ProAir HFA MDI (90 mcg/inh) inhalation aerosol 1 puff(s), Inhalation, q4h, # 3 EA, 1 Refill(s), Pharmacy: [facility], COPD without exacerbation, 180, cm, 02/14/23 9:48:00 EST, Height, kg, 02/14/23 9:48:00 EST, Dosing Weight Start Date: 02/14/23 Stop Date: 08/13/23 Status: Ordered Quantity: 3.0 Unit: EA Repeat number: 2 Indication: Chronic obstructive pulmonary disease, unspecified Start: 01-01-2023 Start: 01-01-2023 Albuterol Sulf ate Active 1 INH INHALATION Q4H December 31, 2022 11:00pm Start: 08-02-2022 End: 01-29-2023 take 1 puff(s) by inhalation every four hours ProAir HFA MDI (90 mcg/inh) inhalation aerosol 1 puff(s), Inhalation, q4h, # 3 EA, 1 Refill(s), Pharmacy: [facility], COPD without exacerbation, 180, cm, 08/02/22 8:30:00 EDT, Height, kg, 08/02/22 8:30:00 EDT, Dosing Weight Start Date: 08/02/22 Stop Date: 01/29/23 Status: Ordered Start: 01-19-2021 End: 01-15-2022 take 1 puff(s) by inhalation every four hours ProAir HFA MDI (90 mcg/inh) inhalation aerosol 1 puff(s), Inhalation, q4h, # 3 EA, 1 Refill(s), Pharmacy: [facility], COPD without exacerbation, 180, cm, 07/19/21 11:20:00 EDT, Height, kg, 07/19/21 11:20:00 EDT, Dosing Weight Start Date: 07/19/21 Stop Date: 01/15/22 Status: Ordered Start: 07-13-2020 End: 04-09-2021 take 1 puff(s) by inhalation every four hours ProAir HFA MDI (90 mcg/inh) inhalation aerosol 1 puff(s), Inhalation, q4h, # 3 EA, 2 Refill(s), Pharmacy: [id number], COPD without exacerbation, 180, cm, 07/13/20 10:34:00 EDT, Height, kg, 07/13/20 10:34:00 EDT, Dosing Weight Start Date: 07/13/20 Stop Date: 04/09/21 Status: Ordered apixaban 5 mg oral tablet (1 source) Factor Xa Inhibitor Start: 10-31-2020 Eliquis 5 mg oral tablet Dose : 5 mg = 1 tab(s), Oral, BID, 0 Refill(s), 92 Start Date: 10/31/20 Status: Ordered bicalutamide 50 mg oral tablet (6 sources) Androgen Receptor Inhibitor Start: 07-30-2018 End: 01-01-2023 take 1 tablet by mouth once daily Bicalutamide 50 mg tablet Discontinued 50 mg PO DAILY July 29, 2018 11:00pm January 01, 2023 11:43am calcium carbonate 1500 mg / cholecalciferol 800 unt chewable tablet (20 sources) Vitamin D Start: 02-11-2023 End: 05-14-2023 Calcium Carbonate-Vitamin D3 (Caltrate 600 Plus D) 600 mg-20 mcg (800 unit) tablet,chewable Discontinued 1 {tbl} PO DAILY February 11, 2023 12:00am May 14, 2023 8:27am Start: 10-08-2018 take 1 tablet by rj th once daily Caltrate 600 + D oral tablet Dose = 1 tab(s), Oral, Daily, 0 Refill(s) Start Date: 10/08/18 Status: Ordered Repeat number: 1 Start: 07-31-2018 take 1 tablet by rj once daily calcium carbonate-vitamin D3 (OSCAL+D) 500 mg(1,250mg) -400 unit chewable tablet Take 1 tablet by mouth once daily. 60 tablet 2 07/31/2018 Active Comment on above: Take 1 tablet by [facility] once daily. ibuprofen 200 mg oral tablet (6 sources) Nonsteroidal Anti-inflammatory Drug Start: 01-09-20 End: 07-31-19 Ibuprofen 200 MG tablet Discontinued 200 mg PO NEEDED as needed for Pain January 07, 2018 11:00pm July 30, 2018 9:07am 1.5 ml leuprolide acetate 15 mg/ml prefilled syringe (4 sources) Gonadotropin Releasing Hormone Receptor Agonist Start: 09-25-19 End: 09-25-19 inject 1 dose by intramuscular injection once 22.5 mg, INTRAMUSCULAR, ONCE, 1 dose, On Fri09/24/24 at 1200, Hazardous Chemotherapy Drug: Use appropriate PPE. Start: 02-18-2024 End: 02-18-2024 inject 1 dose by intramuscular injection once 22.5 mg, INTRAMUSCULAR, ONCE, 1 dose, On Fri02/18/24 at 1400, Hazardous Chemotherapy Drug: Use appropriate PPE. Start: 11-26-2023 End: 11-26-2023 inject 1 dose by intramuscular injection once 22.5 mg, INTRAMUSCULAR, ONCE, 1 dose, On Fri11/26/23 at 1130, Hazardous Chemotherapy Drug: Use appropriate PPE. Start: 09-03-2023 End: 09-03-2023 leuprolide 22.5 mg injection (LUPRON DEPOT) loratadine 10 mg oral tablet (1 source) Start: 04-20-2021 End: 05-04-2021 loratadine 10 mg oral tablet Dose : 10 mg = 1 tab(s), Oral, qDay, # 14 tab(s), 0 Refill(s), Pharmacy: [facility], Nasal congestion with rhinorrhea, 180, cm, 04/20/21 14:12:00 EST, Height, kg, 04/20/21 14:12:00 EST, Dosing Weight Start Date: 04/20/21 Stop Date: 05/04/21 Status: Ordered LORazepam 1 mg oral tablet (6 sources) Benzodiazepine Start: 07-30-2018 End: 01-01-2023 take 1 tablet by mouth at bedtime as needed Lorazepam 1 mg tablet Discontinued 1 mg PO AT BEDTIME as needed July 29, 2018 11:00pm January 01, 2023 11:42am meloxicam 15 mg oral tablet (6 sources) Nonsteroidal Anti-inflammatory Drug Start: 07-30-2018 End: 01-01-2023 take 1 tablet by mouth once daily Meloxicam (Mobic) 15 mg tablet Discontinued 15 mg PO DAILY July 29, 2018 11:00pm January 01, 2023 11:42am pantoprazole 40 mg delayed release oral tablet (20 sources) Proton Pump Inhibitor Start: 03-09-2024 take 1 tablet by mouth once daily Pantoprazole 40 mg tablet,delayed release (DR/EC) Discontinued 40 mg PO daily March 09, 2024 1:00am Start: 01-01-2024 End: 03-01-2024 pantoprazole 40 mg oral ente som coated tablet Dose : 40 mg = 1 tab(s), Oral, qDay, # 90 tab(s), 1 Refill(s), Pharmacy: [facility], GERD (gastroesophageal reflux disease), 178, cm, 02/24/24 9:56:00 EST, Height, kg, 02/24/24 9:56:00 EST, Dosing Weight Start Date: 02/26/24 Status: Ordered Quantity: 90.0 Unit: tab(s) Repeat number: 2 Indication: Gastro-esophageal reflux disease without esophagitis predniSONE 5 mg oral tablet (20 sources) Start: 10-08-2018 End: 06-27-2022 take 1 tablet by mouth once daily predniSONE (DELTASONE) 5 mg tablet Take 1 tablet by mouth once daily. 90 tablet 2 06/27/2022 Active Comment on above: Take 1 tablet by rj th once daily. TAKE 1 TABLET ONCE D AILY ramipril 5 mg oral capsule (20 sources) Angiotensin Converting Enzyme Inhibitor Start: 01-07-2023 End: 12-28-2024 take 2 capsules by mouth once daily Ramipril 5 mg capsule Discontinued 10 mg PO DAILY January 07, 2023 8:46am December 28, 2024 12:40pm Start: 01-07-2023 take 10 mg by mouth once daily Ramipril Active 10 MG PO DAILY January 07, 2023 8:46am Start: 01-01-2023 End: 01-07-2023 take 1 capsule by mouth once daily Ramipril 5 mg capsule Discontinued 5 mg PO DAILY December 31, 2022 11:00pm January 07, 2023 8:47am Start: 06-18-2019 End: 06-04-2021 take 1 capsule by mouth once daily ramipril (ALTACE) 10 mg capsule Take 10 mg by mouth once daily. 06/18/2019 Active Comment on above: Take 10 mg by mouth once daily. rosuvastatin calcium 5 mg oral tablet (20 sources) HMG-CoA Reductase Inhibitor Start: End: take 1 tablet by mouth once daily Rosuvastatin 5 mg tablet Discontinued 5 mg PO DAILY December 31, 2022 11:00pm December 28, 2024 12:38pm Start: 07-13-2020 End: 01-15-2022 rosuvastatin 5 mg oral table t Dose : 5 mg = 1 tab(s), Oral, qDay, # 90 tab(s), 1 Refill(s), Pharmacy: [facility], Hyperlipidemia LDL goal Start Date: 07/19/21 Stop Date: 01/15/22 Status: Ordered Comment on above: Take 5 mg by mouth o nce daily. tiZANidine 6 mg oral capsule (1 source) Central alpha-2 Adrenergic Agonist Start: 04-20-2021 End: 04-30-2021 tiZANidine 6 mg oral capsule Dose : 6 mg = 1 cap(s), Oral, TID, # 30 cap(s), 0 Refill(s), Pharmacy: [id number], Neck muscle strain, 180, cm, 04/20/21 14:12:00 EST, Height, kg, 04/20/21 14:12:00 EST, Dosing Weight Start Date: 04/20/21 Stop Date: 04/30/21 Status: Ordered 100 ml zoledronic acid 0.04 mg/ml injection (4 sources) Bisphosphonate Start: 09-24-2024 End: 09-24-2024 4 mg, INTRAVENOUS, Administer over 15 Minutes, ONCE, 1 dose, On Fri09/24/24 at 1200, Hazardous Potential Reproductive Risk Drug: Use appropriate PPE. Start: 02-18-2024 End: 02-18-2024 4 mg, INTRAVENOUS, Administe r over 15 Minutes, ONCE, 1 dose, On Fri02/18/24 at 1400, Hazardous Potential Reproductive Risk Drug: Use appropriate PPE. Start: 11-26-2023 End: 11-26-2023 4 mg, INTRAVENOUS, Administe r over 15 Minutes, ONCE, 1 dose, On Fri11/26/23 at 1200, Hazardous Potential Reproductive Risk Drug: Use appropriate PPE. Start: 09-03-2023 End: 09-03-2023 zoledronic [id number] Cl 4 mg iv piggyback 100 mL (ZOMETA) Problems Active Problems Problem Classification Problem Date Documented Date Episodic/Chronic Abdominal pain (2 sources) Right upper quadrant pain; Translations: [Right upper quadrant pain] Episodic Acute cerebrovascular disease (20 sources) Cerebrovascular accident; Translations: [Cerebral infarction, unspecified] Onset: 09-07-2018 09-07-2018 Chronic Aortic and peripheral arterial embolism or thrombosis (7 sources) Occlusion of right femoral artery 01-29-2024 Chronic Aortic; peripheral; and visceral artery aneurysms (20 sources) Abdominal aortic aneurysm without rupture; Translations: [Abdominal aortic aneurysm, without rupture] Onset: 09-07-2018 06-06-2020 Chronic Comment on above: Repair of aneurysm ( 10/2019): Repair of aneurysm with endovascular repair with a [place] excluder C3, 26mm x12mm x 18cm long device brought up the right, a contralateral 12mm x 14cm on the left with outreach team member with a 12mm x 10 cm on the left, an ipsilateral extension with 12mm x 12cm. Asthma (4 sources) Asthma-chronic obstructive pulmonary disease overlap syndrome; Translations: [Asthma-chronic obstructive pulmonary disease overlap syndrome] 05-14-2023 Chronic Comment on above: FEV1 72% Calculus of urinary tract (7 sources) Kidney stone 01-29-2024 Episodic Comment on above: Kidney stone on left side (non-obstructing, 11mm) Cancer of prostate (20 sources) Malignant tumor of prostate; Translations: [Malignant neoplasm of prostate] Onset: 07-10-2018 06-14-2019 Chronic Cardiac dysrhythmias (2 sources) Irregular heart beat; Translations: [Cardiac arrhythmia, unspecified] 12-28-2024 Chronic Chronic kidney disease (18 sources) Chronic kidney disease stage 3; Translations: [Chronic kidney disease, unspecified] Onset: 08-28-2023 07-13-2020 Chronic Chronic kidney disease (4 sources) Chronic kidney disease; Translations: [Chronic kidney disease, stage 3 unspecified] Onset: 02-06-2023 Chronic obstructive pulmonary disease and bronchiectasis (20 sources) Chronic obstructive lung disease; 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] Onset: 09-07-2018 06-06-2020 Chronic Comment on above: COPD/emphsema (advan ab) Chronic obstructive pulmonary disease and bronchiectasis (2 sources) Chronic obstructive pulmonary disease and bronchiectasis; Translations: [Other specified chronic obstructive pulmonary disease] Onset: 12-28-2024 Coronary atherosclerosis and other heart disease (8 sources) Calcification of coronary artery; Translations: [Coronary arteriosclerosis] 01-29-2024 Chronic Deficiency and other anemia (16 sources) Anemia 01-19-2021 Episodic Disorders of lipid metabolism (20 sources) Hyperlipidemia; Translations: [Hyperlipidemia, unspecified] Onset: 02-06-2023 10-08-2018 Chronic Esophageal disorders (10 sources) Gastroesophageal reflux disease 01-01-2024 Chronic Essential hypertension (20 sources) Hypertensive disorder; Translations: [Essential hypertension] Onset: 09-07-2018 06-14-2019 Chronic Lymphadenitis (7 sources) Mediastinal lymphadenopathy 01-29-2024 Episodic Nonspecific chest pain (1 source) Chest pain; Translations: [Chest pain, unspecified] Onset: 04-19-2024 Episodic Nutritional deficiencies (8 sources) Vitamin D deficiency; Translations: [Vitamin D deficiency, unspecified] Onset: 08-17-2024 02-24-2024 Chronic Occlusion or stenosis of precerebral arteries (20 sources) Bilateral stenosis of carotid arteries; Translations: [Occlusion and stenosis of bilateral carotid arteries] Onset: 09-07-2018 09-07-2018 Chronic Osteoarthritis (6 sources) Arthritis; Translations: [Unspecified osteoarthritis, unspecified site] 07-30-2018 Chronic Other aftercare (3 sources) Post-discharge follow-up 05-24-2024 Episodic Other aftercare (1 source) Surgical follow-up 06-03-2024 Episodic Other aftercare (1 source) Radiotherapy follow-up; Translations: [Encounter for follow-up examination after completed treatment for conditions other than malignant neoplasm] 09-29-2024 Episodic Other and unspecified benign neoplasm (6 sources) Change in skin lesion; Translations: [Melanocytic nevi, unspecified] 07-30-2018 Episodic Other circulatory disease (7 sources) Iliac artery stenosis 01-29-2024 Chronic Other circulatory disease (17 sources) History of cerebrovascular accident 10-06-2018 Episodic Other circulatory disease (17 sources) History of repair of aneurysm of abdominal aorta 06-06-2020 Episodic Comment on above: Repair of aneurysm ( 10/2019): Repair of aneurysm with endovascular repair with a [place] excluder C3, 26mm x12mm x 18cm long device brought up the right, a contralateral 12mm x 14cm on the left with outreach team member with a 12mm x 10 cm on the left, an ipsilateral extension with 12mm x 12cm. Other ear and sense organ disorders (1 source) Impacted cerumen 02-14-2023 Episodic Other liver diseases (2 sources) Elevated liver enzymes level; Translations: [Abnormal levels of other serum enzymes] Episodic Other lower respiratory disease (14 sources) Dyspnea on exertion 10-28-2022 Episodic Other lower respiratory disease (14 sources) Nodule of lung 03-12-2022 Episodic Other lower respiratory disease (2 sources) Dyspnea, unspecified; Translations: [Other respiratory abnormalities] 01-07-2023 Episodic Other screening for suspected conditions (not mental disorders or infectious disease) (20 sources) Other specified abnormal findings of blood chemistry; Translations: [Other abnormal blood chemistry] Onset: 04-15-2022 Episodic Peripheral and visceral atherosclerosis (20 sources) Intermittent claudication; Translations: [Peripheral vascular disease, unspecified] Onset: 09-07-2018 09-07-2018 Chronic Residual codes; unclassified (12 sources) Past history of procedure; Translations: [Other specified postprocedural states] 07-30-2018 Episodic Comment on above: 07/28/2018 with internal urethr otomy- 01/09/18 Residual codes; unclassified (6 sources) History of colonoscopy; Translations: [Other specified postprocedural states] 07-30-2018 Episodic Residual codes; unclassified (10 sources) Increased body mass index 09-04-2023 Episodic Residual codes; unclassified (3 sources) History of cardiovascular surgery; Translations: [Other specified postprocedural states] 03-09-2024 Episodic Screening and history of mental health and substance abuse codes (17 sources) Tobacco use and exposure - finding 07-01-2019 Chronic Secondary malignancies (20 sources) Secondary malignant neoplasm of bone; Translations: [Secondary malignant neoplasm of bone] Onset: 01-14-2019 06-14-2019 Chronic Comment on above: 03/07/2022 CT Chest without contrast: IMPRESSION 1. There is a new density in the lateral right middle lobe which may be infectious/inflammatory process or possible neoplastic. 2. Stable subcentimeter nodule along the right minor fissure. 3. Stable borderline enlarged paratracheal and AP window lymph nodes. 4. Unchanged sclerotic skeletal metastasis. 07/02/2018 NM Bone I maging Whole Body: IMPRESSION: 1. Findings compatible with widespread metastatic disease involving the axial and proximal appendicular skeleton. The pattern is most suspicious for prostate cancer and correlation with PSA is recommended. Secondary malignancies (1 source) Secondary malignant neoplasm of bilateral lungs; Translations: [Secondary malignant neoplasm of right lung] Chronic Secondary malignancies (6 sources) Secondary malignant neoplasm of bone; Translations: [Secondary malignant neoplasm of bone] Onset: 09-07-2018 Chronic Spondylosis; intervertebral disc disorders; other back problems (13 sources) Back problem; Translations: [Dorsopathy, unspecified] 07-30-2018 Episodic Substance-related disorders (3 sources) Cigarette smoker ; Translations: [Nicotine dependence, cigarettes, uncomplicated] 12-29-2023 Chronic Comment on above: [id number] smoking history quitting completely in 2019 Unclassified (20 sources) Patient encounter status 05-09-2023 Unclassified (10 sources) Non-smoker 09-04-2023 Unclassified (10 sources) Pain in epigastric region on palpation 01-01-2024 Viral infection (14 sources) Post-viral disorder 03-12-2022 Episodic Past or Other Problems Problem Classification Problem Date Documented Da te Episodic/Chronic Coronary atherosclerosis and other heart disease (3 sources) Presence of aortocoronary bypass graft; Translations: [Presence of aortocoronary bypass graft] Onset: 06-02-2024 Episodic Deficiency and other anemia (2 sources) Anemia, unspecified; Translations: [Anemia, unspecified] Onset: 10-28-2022 Episodic Diabetes mellitus without complication (20 sources) Impaired fasting glycemia; Translations: [Impaired fasting glucose] Onset: 02-06-2023 07-13-2020 Episodic Genitourinary symptoms and ill-defined conditions (20 sources) Acute retention of urine ; Translations: [Other retention of urine] Onset: 10-30-2019 Resolved: 10-30-2019 10-30-2019 Episodic Neoplasms of unspecified nature or uncertain behavior (20 sources) Neoplastic disease; Translations: [Neoplasm of unspecified behavior of bone, soft tissue, and skin] Onset: 06-18-2018 09-07-2018 Episodic Other aftercare (1 source) Encounter for surgical aftercare following surgery on the circulatory system; Translations: [Encounter for surgical aftercare following surgery on the circulatory system] Onset: 04-22-2024 Episodic Other connective tissue disease (3 sources) Muscle weakness (generalized); Translations: [Muscle weakness (generalized)] Onset: 05-13-2024 Episodic Other lower respiratory disease (20 sources) Hypoxemia; Translations: [Hypoxemia] Onset: 08-28-2020 08-28-2020 Episodic Other lower respiratory disease (2 sources) Shortness of breath; Translations: [Shortness of breath] Onset: 10-28-2022 Episodic Pulmonary heart disease (20 sources) Acute pulmonary embolism; Translations: [Other pulmonary embolism without acute cor pulmonale] Onset: 08-29-2020 09-04-2020 Episodic Results Test Name Value Interpretation Reference Range Facility Pulmonary Visit Reporton Pulmonary Visit Report [facility] Pulmonary Medicine [address] [place], [place] [address]. [address] [place] [address] OFFICE VISIT Date of Service: 12/28/24 MR#: [id number] Acct: [id number] Name: SALO NAGY Rep #: [id number] : 1950 Provider: NISHA Smith Age/Sex: 74/M Location: [facility] [place].W Status: Signed Assessment and Plan Assessment and Plan (1) Irregular heart rhythm: Status: Acute Plan: New. I went back and looked at previous physical exams that we have on file, it has never been documented that the patient has had an irregular heart rhythm. The patient states that he has seen his billing clinician in the past month and seen his general practitioner, no one has ever mentioned an irregular rhythm. I recommended that the patient be seen in the emergency department because he is not on any anticoagulation. He is somewhat hypertensive today. This certainly could explain the shortness of breath that is worse on exertion. They were able to contact his primary care doctor by phone, and I spoke with him. The primary care doctor is going to be able to perform a EKG in the office. The patient is stable and able to be transported by his over to the primary care doctor's office for the testing. The primary care doctor will assume full responsibility for this problem moving forward. The patient feels comfortable with this. He was not agreeable to being seen in the emergency department today. He left the office without scheduling his follow-up or testing, they plan to contact the office in the next day or so to schedule all the appointments. (2) Asthma-chronic obstructive pulmonary disease overlap syndrome: Status: Chronic Comment: FEV1 72% Plan: Unclear if COPD has progressed, he is more symptomatic. Repeating PFT and pulmonary stress test. He does not appear to be an exacerbation of COPD today. Continue current maintenance medication, he is on triple therapy with Trelegy. Contact the office for any new or worsening symptoms. An acute visit and typically be arranged within 1-2 days. Follow-up in 4-6 weeks to discuss test results. (3) Prostate cancer: Status: Chronic Plan: Complicates exam, plan, care and prognosis. The patient and his admit that they were aware that the cancer was everywhere. I am going to defer further chest imaging to his oncologist. He can determine if and when any additional chest imaging is necessary. They plan to take the LDCT interpretation with them to the March follow-up. Orders: Orders PFT Complete - DLCO, Spirometry b/a bronchodilators, lung volumes Today J44.89 - Other specified chronic obstructive pulmonary disease Simple Pulmonary Exercise Test Today J44.89 - Other specified chronic obstructive pulmonary disease Plan Details Additional Comments: This note was generated with [employer] dictation software. It may contain incorrect words, spelling, and punctuation that were not noted in checking the note before signing. I have spent 50 minutes today reviewing labs, records and history. Time includes coordinating care, interpretation of tests, discussion with patient's other health care providers via telephone. This also includes time I spent with the patient for exam, treatment plan and education as well as documenting clinical information. Portions of this documentation have been copied and pasted from previous office visit notes to provide a cohesive continuity of the history. The note has been reviewed, edited, and updated, as necessary. Follow Up: 1 Month HPI 1 Y FU Chief Complaint: test results HPI Comments Details: This patient presents to the office today for a routine follow up on his Asthma/COPD overlap syndrome. He is ambulatory, on room air and accompanied today by his . He has not recently been seen in the ED or urgent care for any respiratory illness. He has not required any antibiotics or prednisone for any breathing problems. The patient reports that he was seen in April and planned to have a stent placed at [facility]. However, they were not able to inflate the balloon and ultimately the patient had an open heart surgery with a single bypass. The patient completed cardiac rehab as recommended. He is compliant with use of Trelegy 1 puff daily. He rinses his mouth after each use. He denies any medication side effect such sore throat or thrush. He has not recently used or needed albuterol rescue inhaler. He is now experiencing shortness of breath that is worse on exertion. He is easily exerted. His states that he can only walk a few steps and has to stop to catch his breath. He denies any cough, sputum production or hemoptysis. He denies any wheezing, chest tightness, chest pain or palpitations. He has not had any fever, chills or body aches. If you recall, this patient smoked 1 pack/day for 40 years. He qu (more content not included)... Normal [facility] CNOVSPon 12-17-2024 CNOVSP Visit (SP) Office (H EMAWS) -- SALO NAGY ([id number]) 1950 M Date Time Provider Department 12/17/24 2:00 PM LUIS MIGUEL GUY During your visit today, we recorded the following information about you: Temperature Pulse Blood pressure Weight 97.4 degrees 67/minute 168/87 98.4 kg Luis Miguel Guy MD 12/17/2024 2:01 PM Signed (Elements copied from my note dated September 24, 2024, have been reviewed and updated where appropriate, and all reflect current assessment and medical decision making from today's encounter, December 17, 2024) HISTORY OF PRESENT ILLNESS: Salo Nagy is a 72 year old male dx prostate cancer 2018 on basis of back pain found bone lesions, PSA >3000 at that time. Prostate biopsy at that time showed adenocarcinoma. Started lupron and zytiga after casodex blockade. PSA responded well, PSA tripled in fall Switched to xtandi, delay in starting due to obtaining med. Guardant was negative for actionable mutation. PSA, rising, DT < 3 months Recent open heart surgery for CABG, slowly recovering with cardiac rehab. Here for follow up, PSMA PET 07-27-24, diffuse sclerotic lesions but 2 intensely avid lesions of pelvis. Reviewed with Dr Pearson, agrees RT to pelvis lesions is reasonable RT to bone lesions 08-16 to 08-30-24. Feels well. PSA down a bit. CLINICAL IMPRESSION: Prostate cancer metastatic to bone. Prior bone scan (2019) noted diffuse lesions, but PSMA shows 2 intensely avid pelvis lesions. PSA climbing rate increased, oligometastatic lesions (at least likely more contributory to PSA increase) RECOMMENDATION/PLAN: 1. continue lupron enzalutamide. 2. Follow PSA Written and verbal health teaching given to patient, patient verbalizes understanding and agrees with treatment plan. PAST MEDICAL HISTORY Diagnosis Date Aneurysm of infrarenal abdominal aorta Bone metastases 07/24/2018 CVA (cerebral vascular accident) (HCC) 09/07/2018 Elevated LFTs 04/15/2022 Essential hypertension 09/07/2018 History of CVA (cerebrovascular accident) Malignant neoplasm of prostate (HCC) 07/10/2018 Panlobular emphysema (HCC) 09/07/2018 PAST SURGICAL HISTORY Procedure Laterality Date CYSTOSCOPY 01/09/2018 TRURL ELECTROSURG RESCJ PROSTATE BLEED COMPLETE FAMILY HISTORY Problem Relation Age of Onset Thyroid Mother Breast Cancer Mother Heart Father Heart Brother Aneurysm No Family History Social History Tobacco Use Smoking status: Former Current packs/day: 0.00 Average packs/day: 1 pack/day for 45.0 years (45.0 ttl pk-yrs) Types: Cigarettes Start date: 04/18/1974 Quit date: 04/18/2019 Years since quittin.6 Smokeless tobacco: Never Vaping Use Vaping status: Never Used Substance Use Topics Alcohol use: Never Drug use: Never ALLERGIES: ALLERGIES No Known Allergies CURRENT OUTPATIENT MEDICATIONS: tamsulosin (FLOMAX) 0.4 mg Take 1 capsule by mouth once daily. atorvastatin (LIPITOR) 40 mg tablet Take 40 mg by mouth once daily. clopidogrel (PLAVIX) 75 mg tablet Take 75 mg by mouth once daily. acetaminophen (TYLENOL EXTRA STRENGTH) 500 mg tablet Take 500 mg by mouth every 8 hours as needed. enzalutamide (XTANDI) 40 mg capsule Take 4 capsules (160mg) by mouth once daily. pantoprazole DR (PROTONIX) 40 mg tablet Take 40 mg by mouth once daily. (Patient not taking: Reported on 12/17/2024) juimbeweqna-yrctvtrtz-ovrb nter (TRELEGY ELLIPTA) 200-62.5-25 mcg inhalation powder Inhale 1 Puff as instructed once daily. B-complex with vitamin C (SUPER B COMPLEX-VITAMIN C ORAL) Take 1 tablet by mouth once daily. triamcinolone acetonide (NASACORT AQ) 55 mcg nasal inhaler Use 2 Sprays in each nostril once daily. aspirin, enteric coated (ASPIRIN, ENTERIC COATED) 81 mg EC tablet Take 1 tablet by mouth once daily. hydroCHLOROthiazide (HYDRODIURIL, ESIDRIX) 12.5 mg tablet Take 12.5 mg by mouth once daily. (Patient not taking: Reported on 12/17/2024) iv contrast (will be provided with radiology test) CT Chest W -Inject, intravenously, once for 1 dose.No IV access, insert saline lock prior to the beginning of sedation, infusion, injection of imaging exam. Discontinue saline lock post exam. If Pt. has a central line or IVAD, may access for administration according to line specific nursing protocol. Once exam is complete flush line and de-access according to line specific nursing protocol in the CT contrast administration guidelines link. docusate sodium (COLACE) 100 mg capsule Take 1 capsule by mouth twice daily as needed. (Patient not taking: Reported on 12/17/2024) rosuvastatin (CRESTOR) 5 mg tablet Take 5 mg by mouth once daily. (Patient not taking: Reported on 12/17/2024) ramipril (ALTACE) 10 mg capsule Take 10 mg by mouth once daily. (Patient not taking: Reported on 12/17/2024) metoprolol tartrate, short acting, (LOPRESSOR) 25 mg tablet TAKE 1/2 (ONE-HALF) TAB (more content not included)... Normal [facility] Comprehensive metabolic 2000 panelon 12-10-2024 Albumin [Mass/Vol] 4.4 g/dL Normal 3.9-4.9 [facility] Comment on above: Order Comment: Speci men Type: BLOOD SPECIMENOrdering Facility: [facility] Address: [address] [place] [address] Performed By: #### 2 4323-8 ####[facility] [id number] [place] [address] [place] ALP [Catalytic activity/Vol] 97 U/L Normal 38-113 [facility] Comment on above: Order Comment: Speci men Type: BLOOD SPECIMENOrdering Facility: [facility] Address: [address] [place] [address] Performed By: #### 2 4323-8 ####[facility] [id number] [place] [address] [place] ALT [Catalytic activity/Vol] 9 U/L Low 10-54 [facility] Comment on above: Order Comment: Speci men Type: BLOOD SPECIMENOrdering Facility: [facility] Address: [address] [place] [address] Performed By: #### 2 4323-8 ####[facility] [id number] [place] [address] [place] Anion gap [Moles/Vol] 16 mmol/L High 8-15 [facility] Comment on above: Order Comment: Speci men Type: BLOOD SPECIMENOrdering Facility: [facility] Address: [address] [place] [address] Performed By: #### 2 4323-8 ####[facility] PIPPANCLIA [id number] [place] [address] [place] AST [Catalytic activity/Vol] 17 U/L Normal 14-40 [facility] Comment on above: Order Comment: Speci men Type: BLOOD SPECIMENOrdering Facility: [facility] Address: [address] [place] [address] Performed By: #### 2 4323-8 ####[facility] TIMMYMisaelNCLIA [id number] [place] [address] [place] Bilirubin [Mass/Vol] 0.4 mg/dL Normal 0.2-1.3 [facility] Comment on above: Order Comment: Speci men Type: BLOOD SPECIMENOrdering Facility: [facility] Address: [address] [place] [address] Performed By: #### 2 4323-8 ####[facility]ERNCLIA [id number] [place] [address] [place] Calcium [Mass/Vol] 10.1 mg/dL Normal 8.5-10.2 [facility] Comment on above: Order Comment: Speci men Type: BLOOD SPECIMENOrdering Facility: [facility] Address: [address] [place] [address] Performed By: #### 2 4323-8 ####[facility]ENTERNCLIA [id number] [place] [address] [place] Chloride [Moles/Vol] 102 mmol/L Normal 98-107 [facility] Comment on above: Order Comment: Speci men Type: BLOOD SPECIMENOrdering Facility: [facility] Address: [address] [place] [address] Performed By: #### 2 4323-8 ####[facility] HOS[facility]ITALWNCLIA [id number] [place] [address] [place] CO2 [Moles/Vol] 20 mmol/L Low 22-30 [facility] Comment on above: Order Comment: Speci men Type: BLOOD SPECIMENOrdering Facility: [facility] Address: [address] [place] [address] Performed By: #### 2 4323-8 ####[facility] SYSTEMLIA [id number] [place] [address] [place] Creatinine [Mass/Vol] 1.37 mg/dL High 0.73-1.22 [facility] Comment on above: Order Comment: Speci men Type: BLOOD SPECIMENOrdering Facility: [facility] Address: [address] [place] [address] Performed By: #### 2 4323-8 ####[facility] SYSTEMLIA [id number] [place] [address] [place] eGFRcr SerPlBld CKD-EPI 2020 54 mL/min/1.73m??? Low >=60 [facility] Comment on above: Order Comment: Speci men Type: BLOOD SPECIMENOrdering Facility: [facility] Address: [address] [place] [address] Result Comment: Grisel mated Glomerular Filtration Rate (eGFR) is calculated using the 2020 CKD-EPI creatinine equation. This equation utilizes serum creatinine, sex, and age as parameters. The creatinine assay has traceable calibration to isotope dilution-mass spectrometry. Refer to KDIGO guidelines for clinical interpretation. In patients with unstable renal function, e.g. those with acute kidney injury, the eGFR may not accurately reflect actual GFR. Performed By: #### 2 4323-8 ####[facility] HOSPITALWNCLIA [id number] [place] [address] [place] Glucose [Mass/Vol] 123 mg/dL High 74-99 [facility] Comment on above: Order Comment: Speci men Type: BLOOD SPECIMENOrdering Facility: [facility] Address: [address] [place] [address] Result Comment: The [place] Diabetes Association (ADA) provides guidance for cutoff values for fasting glucose and random glucose. The ADA defines fasting as no caloric intake for at least 8 hours. Fasting plasma glucose results between 100 to 125 mg/dL indicate increased risk for diabetes (prediabetes). Fasting plasma glucose results greater than or equal to 126 mg/dL meet the criteria for diagnosis of diabetes. In the absence of unequivocal hyperglycemia, results should be confirmed by repeat testing. In a patient with classic symptoms of hyperglycemia or hyperglycemic crisis, random plasma glucose results greater than or equal to 200 mg/dL meet the criteria for diagnosis of diabetes. Reference: Standards of Medical Care in Diabetes 2016, [place] Diabetes Association. Diabetes Care. 2016.39(Suppl 1). Performed By: #### 2 4323-8 ####[facility]ITAL[facility] [id number] [place] [address] [place] Potassium [Moles/Vol] 4.7 mmol/L Normal 3.7-5.1 [facility] Comment on above: Order Comment: Chelei men Type: BLOOD SPECIMENOrdering Facility: [facility] Address: [address] [place] [address] Performed By: #### 2 4323-8 ####[facility] HOSPITALWSCLIA [id number] [place] [address] [place] Protein [Mass/Vol] 7.7 g/dL Normal 6.3-8.0 [facility] Comment on above: Order Comment: Chelei men Type: BLOOD SPECIMENOrdering Facility: [facility] Address: [address] [place] [address] Performed By: #### 2 4323-8 ####[facility] HOS[facility]ITALWNCLIA [id number] [place] [address] [place] Sodium [Moles/Vol] 138 mmol/L Normal 136-144 [facility] Comment on above: Order Comment: Speci men Type: BLOOD SPECIMENOrdering Facility: [facility] Address: [address] [id number] Performed By: #### 2 4323-8 ####[facility] PRASHANT PALMA [id number] [place] [address] [place] Urea nitrogen [Mass/Vol] 22 mg/dL Normal 9-24 [facility] Comment on above: Order Comment: Speci men Type: BLOOD SPECIMENOrdering Facility: [facility] Address: [facility] [place] [address] Performed By: #### 2 4323-8 ####[facility] PRASHANT HIGHLIAmara [id number] [place] [address] [place] PSA [facility] Prostate specific Ag [Mass/Vol] 15.14 ng/mL High <2.60 [facility] Comment on above: Order Comment: Speci men Type: BLOOD SPECIMENOrdering Facility: [facility] Address: [address] [place] [address] Result Comment: Tota l PSA test methodology used is the Electrochemiluminescence Immunoassay by [employer]. Total PSA values by differing methodologies cannot be interchanged. For an individual patient, the significance of a PSA level should be interpreted in a broad clinical context, including age, race, family history, digital rectal exam, prostate size, results of prior testing (prostate biopsy, free PSA, PCA3), and use of 5-alpha reductase inhibitors. Considering the high incidence of asymptomatic cancer in the general population that may not pose an ultimate risk to a patient, the decision to recommend urological evaluation or prostate biopsy should be individualized after consideration of all these factors. REFERENCE: Joaquin Rey M.D., M.P.H., Pepe Shen M.D., Ph.D., Samuel Woods M.D., Raysa Johnson, M.P.H., Faith Pepper, ScLm. Effect of Verification Bias on Screening for Prostate Cancer by Measurement of Prostatic Specific Antigen. N Engl J Med 2003,349:335-42. Performed By: #### 2 857-1 ####[facility] LABCLIA [id number] [address] [address] [place] Low Dose CT Lung Screeningon 11-29-[address] Lung Screening [facility] [address] [place], [place] [address] Low Dose CT Lung Screening MR#: [id number] Acct: [id number] Name: SALO NAGY Rep #: [id number] : 1950 M 74 From: Freddy nation MD PCP: NISHA Pearce Status: REG CLI Study: Low Dose CT Lung Screening Date of Exam: 11/29 Exam# [id number] Ordering Dr: Claudia Smith NP HAND STEMMER-C PROCEDURE: LOW DOSE CT LUNG SCREENING 11/29/2024 REASON FOR EXAM: SMOKER QUIT 2019 TECHNIQUE: Procedure Code: CTLUNGSCREEN Modality: CT Procedure: LOW DOSE CT LUNG SCREENING Coronal and Sagittal reconstruction series were provided. One or more dose reduction techniques were used (e.g., Automated exposure control, adjustment of the mA and/or kV according to patient size, use of iterative reconstruction technique). REFERENCE LINK: [employer] Lung-RADS RADIATION DOSE SUMMARY: CTDlvol: 3.18 mGy DLP: 107.6 mGycm COMPARISON: CT chest dated 11/2023 FINDINGS: PULMONARY NODULES: (Only nodules >3mm are reported) Nodules described below are on series 2 unless otherwise specified. Pulmonary Nodules: No suspicious pulmonary nodule. Hardware:Status post median sternotomy Lymph Nodes:Shotty mediastinal lymph nodes stable since previous exams Heart and Vasculature:Mild cardiomegaly.Atherosclerot ic calcifications of the thoracic aorta. Thoracic aorta and pulmonary arteries have normal contours; noncontrast technique limits evaluation. Calcifications of the aortic leaflets and mitral annulus. Status post CABG. Lungs and Airways: Severe emphysematous changes with bullous emphysema. Parenchymal scarring seen in the left lower lobe posteriorly. Patent airway. Pleura:No effusion. No pneumothorax. Upper Abdomen:Within normal limits Bones:Diffuse sclerotic metastases throughout the skeleton CT/Low Dose CT Lung Screening IMPRESSION: Diffuse lytic and sclerotic lesions throughout the bone consistent with diffuse metastatic disease. Severe emphysematous changes throughout the lung. Stable mediastinal lymph nodes unchanged. No suspicious pulmonary nodule. No change since previous exam. Lung-RADS Category: 1 NEGATIVE. RECOMMEND 12-MONTH SCREENING LDCT. Other Significant Findings: Diffuse metastatic disease throughout the bone, unchanged. Mediastinal lymphadenopathy, stable. Reading Location: [id number] CC: NISHA Smith; NISHA Bolivar Guide Foreign Tour: Signed Normal [facility] Duplex ultrasound of carotid artery reportOrdered By: Sreedhar Coppola on 10-04-2024 Study report [facility] Cardi[facility] [address] [place] [address] Carotid Duplex Ultrasound 10/01/24 1056 MR#: [id number] Acct: [id number] Name: SALO NAGY Rep #:[id number] : 1950 74 From: Sreedhar Mosley Attending Dr: JOHNNY Corrales Stat us: REG CLI Ordering Dr: Gina Sharif Date: Location: [facility] Sex: M C Admitted: Reason For Study Reason For Study: Right ICA stenosis Rt. Velocities/BP Lt. Velocities/BP Prox CCA 58.9/6.9 cm/sec. Prox CCA 68.1/11.5 cm/sec. Mid CCA 54.1/10.7 cm/sec. Mid CCA 47.6/10.2 cm/sec. Dist CCA 50.4/8.8 cm/sec. Dist CCA 48.7/10.2 cm/sec. Prox ICA 243.4/59.2 cm/sec. Prox ICA 119.2/20.4 cm/sec. Mid ICA 135.7/22.5 cm/sec. Mid ICA 73.1/8.2 cm/sec. Dist ICA 84.6/22.5 cm/sec. Dist ICA 73.6/20.6 cm/sec. Rt. ICA/CCA = 4.50. Lt. ICA/CCA = 2.50. Prox ECA 62.6/4.1 cm/sec. Prox ECA 169.7/13.8 cm/sec. Rt. Vert. 70/22.5 cm/sec. Lt. Vert. 44.3/10.2 cm/sec. Right Extracranial There is heterogeneous, irregular atherosclerotic plaque noted in the right common carotid artery. There is heterogeneous, irregular atherosclerotic plaque noted in the right internal carotid artery. There is heterogeneous, irregular atherosclerotic plaque noted in the right external carotid artery. Antegrade flow is noted in the right vertebral artery. Left Extracranial There is heterogeneous, irregular atherosclerotic plaque noted in the left common carotid artery. There is heterogeneous, irregular atherosclerotic plaque noted in the left internal carotid artery. There is heterogeneous, irregular atherosclerotic plaque noted in the left external carotid artery. Antegrade flow is noted in the left vertebral artery. Procedure Carotid Duplex 22587. This is a Carotid Duplex examination using B-mode, color flow and specral Doppler. Exam performed in department. VL/Carotid Duplex Ultrasound Interpretation Summary Moderate (50-69%) stenosis right extracranial internal carotid. Mild (<50%) stenosis left extracranial internal carotid. Patent and antegrade vertebrals bilaterally. Ordering Physician: Gina Sharif Referring Physician: Silverio Bolivar Performed By: Janine Toure RVT 10/04/24 1425 Date _ Sreedhar Coppola MD CC: NISHA Bolivar; JOHNNY Corrales ~ Date Dictated: 10/01/24 1056 Date Transcribed: 10/04/241424 Guide Foreign Tour: Signed [facility] Work Phone: Carotid Duplex Ultrasoundon 10-01-2024 Carotid Duplex Ultrasound [facility] [address] [place] [address] Carotid Duplex Ultrasound 10/01/24 1056 MR#: [id number] Acct: [id number] Name: SALO NAGY Rep #: [id number] : 1950 74 From: Sreedhar Coppola MD Attending Dr: JOHNNY Corrales Status: REG CLI Ordering Dr: Gina Sharif Date: 10/01/24 Location: [facility] Sex: M C Admitted: Reason For Study Reason For Study: Right ICA stenosis Rt. Velocities/BP Lt. Velocities/BP Prox CCA 58.9/6.9 cm/sec. Prox CCA 68.1/11.5 cm/sec. Mid CCA 54.1/10.7 cm/sec. Mid CCA 47.6/10.2 cm/sec. Dist CCA 50.4/8.8 cm/sec. Dist CCA 48.7/10.2 cm/sec. Prox ICA 243.4/59.2 cm/sec. Prox ICA 119.2/20.4 cm/sec. Mid ICA 135.7/22.5 cm/sec. Mid ICA 73.1/8.2 cm/sec. Dist ICA 84.6/22.5 cm/sec. Dist ICA 73.6/20.6 cm/sec. Rt. ICA/CCA = 4.50. Lt. ICA/CCA = 2.50. Prox ECA 62.6/4.1 cm/sec. Prox ECA 169.7/13.8 cm/sec. Rt. Vert. 70/22.5 cm/sec. Lt. Vert. 44.3/10.2 cm/sec. Right Extracranial There is heterogeneous, irregular atherosclerotic plaque noted in the right common carotid artery. There is heterogeneous, irregular atherosclerotic plaque noted in the right internal carotid artery. There is heterogeneous, irregular atherosclerotic plaque noted in the right external carotid artery. Antegrade flow is noted in the right vertebral artery. Left Extracranial There is heterogeneous, irregular atherosclerotic plaque noted in the left common carotid artery. There is heterogeneous, irregular atherosclerotic plaque noted in the left internal carotid artery. There is heterogeneous, irregular atherosclerotic plaque noted in the left external carotid artery. Antegrade flow is noted in the left vertebral artery. Procedure Carotid Duplex 57200. This is a Carotid Duplex examination using B-mode, color flow and specral Doppler. Exam performed in department. VL/Carotid Duplex Ultrasound Interpretation Summary Moderate (50-69%) stenosis right extracranial internal carotid. Mild (<50%) stenosis left extracranial internal carotid. Patent and antegrade vertebrals bilaterally. Ordering Physician: Gina Sharif Referring Physician: Silverio Bolivar Performed By: Janine Toure RVT 10/04/24 1425 Date Sreedhar Coppola MD CC: HAND STEMMER-C Silverio Bolivar; JOHNNY Corrales Date Dictated: 10/01/24 1056 Date Transcribed: 10/04/241424 Guide Foreign Tour: [facility] 09-24-2024 [facility] Visit (SP) Office (H EMAWS) -- SALO NAGY ([id number]) 1950 M Date Time Provider Department 09/24/24 11:30 AM LUIS MIGUEL GUY During your visit today, we recorded the following information about you: Temperature Pulse Blood pressure Weight 97.1 degrees 64/minute 153/78 96.2 kg Luis Miguel Guy MD 09/24/2024 1:01 PM Signed (Elements copied from my note dated August 06, 2024, have been reviewed and updated where appropriate, and all reflect current assessment and medical decision making from today's encounter, September 24, 2024) HISTORY OF PRESENT ILLNESS: Salo Nagy is a 72 year old male dx prostate cancer 2018 on basis of back pain found bone lesions, PSA >3000 at that time. Prostate biopsy at that time showed adenocarcinoma. Started lupron and zytiga after casodex blockade. PSA responded well, PSA tripled in fall 2022 Switched to xtandi, delay in starting due to obtaining med. Guardant was negative for actionable mutation. PSA, rising, DT < 3 months Recent open heart surgery for CABG, slowly recovering with cardiac rehab. Here for follow up, PSMA PET 07-27-24, diffuse sclerotic lesions but 2 intensely avid lesions of pelvis. Reviewed with Dr Pearson, agrees RT to pelvis lesions is reasonable RT to bone lesions 08-16 to 08-30-24. Feels well. PSA down a bit. CLINICAL IMPRESSION: Prostate cancer metastatic to bone. Prior bone scan (2019) noted diffuse lesions, but PSMA shows 2 intensely avid pelvis lesions. PSA climbing rate increased, oligometastatic lesions (at least likely more contributory to PSA increase) RECOMMENDATION/PLAN: 1. continue lupron enzalutamide. 2. Follow PSA Written and verbal health teaching given to patient, patient verbalizes understanding and agrees with treatment plan. PAST MEDICAL HISTORY Diagnosis Date Aneurysm of infrarenal abdominal aorta Bone metastases 07/24/2018 CVA (cerebral vascular accident) (HCC) 09/07/2018 Elevated LFTs 04/15/2022 Essential hypertension 09/07/2018 History of CVA (cerebrovascular accident) Malignant neoplasm of prostate (HCC) 07/10/2018 Panlobular emphysema (HCC) 09/07/2018 PAST SURGICAL HISTORY Procedure Laterality Date CYSTOSCOPY 01/09/2018 TRURL ELECTROSURG RESCJ PROSTATE BLEED COMPLETE FAMILY HISTORY Problem Relation Age of Onset Thyroid Mother Breast Cancer Mother Heart Father Heart Brother Aneurysm No Family History Social History Tobacco Use Smoking status: Former Current packs/day: 0.00 Average packs/day: 1 pack/day for 45.0 years (45.0 ttl pk-yrs) Types: Cigarettes Start date: 04/18/1974 Quit date: 04/18/2019 Years since quittin.4 Smokeless tobacco: Never Vaping Use Vaping status: Never Used Substance Use Topics Alcohol use: Never Drug use: Never ALLERGIES: ALLERGIES No Known Allergies CURRENT OUTPATIENT MEDICATIONS: tamsulosin (FLOMAX) 0.4 mg Take 1 capsule by mouth once daily. atorvastatin (LIPITOR) 40 mg tablet Take 40 mg by mouth once daily. clopidogrel (PLAVIX) 75 mg tablet Take 75 mg by mouth once daily. famotidine (PEPCID) 20 mg tablet Take 20 mg by mouth two times a day. acetaminophen (TYLENOL EXTRA STRENGTH) 500 mg tablet Take 500 mg by mouth every 8 hours as needed. enzalutamide (XTANDI) 40 mg capsule Take 4 capsules (160mg) by mouth once daily. upkoygcfife-tvoxdujca-cqzh nter (TRELEGY ELLIPTA) 200-62.5-25 mcg inhalation powder Inhale 1 Puff as instructed once daily. B-complex with vitamin C (SUPER B COMPLEX-VITAMIN C ORAL) Take 1 tablet by mouth once daily. triamcinolone acetonide (NASACORT AQ) 55 mcg nasal inhaler Use 2 Sprays in each nostril once daily. aspirin, enteric coated (ASPIRIN, ENTERIC COATED) 81 mg EC tablet Take 1 tablet by mouth once daily. metoprolol tartrate, short acting, (LOPRESSOR) 25 mg tablet TAKE 1/2 (ONE-HALF) TABLET BY MOUTH TWICE DAILY calcium carbonate-vitamin D3 (OSCAL+D) 500 mg(1,250mg) -400 unit chewable tablet Take 1 tablet by mouth once daily. pantoprazole DR (PROTONIX) 40 mg tablet Take 40 mg by mouth once daily. (Patient not taking: Reported on 07/02/2024) hydroCHLOROthiazide (HYDRODIURIL, ESIDRIX) 12.5 mg tablet Take 12.5 mg by mouth once daily. (Patient not taking: Reported on 03/18/2023) iv contrast (will be provided with radiology test) CT Chest W -Inject, intravenously, once for 1 dose.No IV access, insert saline lock prior to the beginning of sedation, infusion, injection of imaging exam. Discontinue saline lock post exam. If Pt. has a central line or IVAD, may access for administration according to line specific nursing protocol. Once exam is complete flush line and de-access according to line specific nursing protocol in the CT contrast administration guidelines link. docusate sodium (COLACE) 100 mg capsule Take 1 capsule by mouth twice daily as needed. (Patient not taking: Reported on 07/02/2024) rosuvastatin (YANDEL (more content not included)... Normal [facility] Comprehensive metabolic 2000 panelon 09-17-2024 Albumin [Mass/Vol] 4.0 g/dL Normal 3.9-4.9 [facility] Comment on above: Order Comment: Speci men Type: BLOOD SPECIMENOrdering Facility: [facility] Address: [address] [place] [address] Performed By: #### 2 4323-8 ####[facility] HOSPITALWSCLIA [id number] [place] [address] [place] ALP [Catalytic activity/Vol] 101 U/L Normal 38-113 [facility] Comment on above: Order Comment: Speci men Type: BLOOD SPECIMENOrdering Facility: [facility] Address: [address] [place] [address] Performed By: #### 2 4323-8 ####[facility] HOS[facility]ITALWSCLIA [id number] [place] [address] [place] ALT [Catalytic activity/Vol] 7 U/L Low 10-54 [facility] Comment on above: Order Comment: Speci men Type: BLOOD SPECIMENOrdering Facility: [facility] Address: [address] [place] [address] Performed By: #### 2 4323-8 ####[facility] MILLTOWNCLIA [id number] [place] [address] [place] Anion gap [Moles/Vol] 14 mmol/L Normal 8-15 [facility] Comment on above: Order Comment: Speci men Type: BLOOD SPECIMENOrdering Facility: [facility] Address: [address] [place] [address] Performed By: #### 2 4323-8 ####[facility] MILLTOWNCLIA [id number] [place] [address] [place] AST [Catalytic activity/Vol] 13 U/L Low 14-40 [facility] Comment on above: Order Comment: Speci men Type: BLOOD SPECIMENOrdering Facility: [facility] Address: [address] [place] [address] Performed By: #### 2 4323-8 ####[facility] MILLTOWNCLIA [id number] [place] [address] [place] Bilirubin [Mass/Vol] 0.2 mg/dL Normal 0.2-1.3 [facility] Comment on above: Order Comment: Speci men Type: BLOOD SPECIMENOrdering Facility: [facility] Address: [address] [place] [address] Performed By: #### 2 4323-8 ####[facility] HOSPITALWNCLIA [id number] [place] [address] [place] Calcium [Mass/Vol] 9.6 mg/dL Normal 8.5-10.2 [facility] Comment on above: Order Comment: Speci men Type: BLOOD SPECIMENOrdering Facility: [facility] Address: [address] [place] [address] Performed By: #### 2 4323-8 ####[facility] HOSPITALWNCLIA [id number] [place] [address] [place] Chloride [Moles/Vol] 104 mmol/L Normal 98-107 [facility] Comment on above: Order Comment: Speci men Type: BLOOD SPECIMENOrdering Facility: [facility] Address: [address] [place] [address] Performed By: #### 2 4323-8 ####[facility] MILLTOWNCLIA [id number] [place] [address] [place] CO2 [Moles/Vol] 19 mmol/L Low 22-30 [facility] Comment on above: Order Comment: Speci men Type: BLOOD SPECIMENOrdering Facility: [facility] Address: [address] [place] [address] Performed By: #### 2 4323-8 ####[facility] TIMMYADDISBRIAN [id number] [place] [address] [place] Creatinine [Mass/Vol] 1.19 mg/dL Normal 0.73-1.22 [facility] Comment on above: Order Comment: Speci men Type: BLOOD SPECIMENOrdering Facility: [facility] Address: [address] [place] [address] Performed By: #### 2 4323-8 ####[facility]ENTERNCMICHAEL [id number] [place] [address] [place] Creatinine and Glomerular filtration rate.predicted panel (S/P/Bld) 64 mL/min/1.73m??? Normal >=60 [facility] Comment on above: Order Comment: Speci men Type: BLOOD SPECIMENOrdering Facility: [facility] Address: [address] [place] [address] Result Comment: Grisel mated Glomerular Filtration Rate (eGFR) is calculated using the 2020 CKD-EPI creatinine equation. This equation utilizes serum creatinine, sex, and age as parameters. The creatinine assay has traceable calibration to isotope dilution-mass spectrometry. Refer to KDIGO guidelines for clinical interpretation. In patients with unstable renal function, e.g. those with acute kidney injury, the eGFR may not accurately reflect actual GFR. Performed By: #### 2 4323-8 ####[facility]ENTERNCLIA [id number] [place] [address] [place] Glucose [Mass/Vol] 122 mg/dL High 74-99 [facility] Comment on above: Order Comment: Speci men Type: BLOOD SPECIMENOrdering Facility: [facility] Address: [address] [place] [address] Result Comment: The [place] Diabetes Association (ADA) provides guidance for cutoff values for fasting glucose and random glucose. The ADA defines fasting as no caloric intake for at least 8 hours. Fasting plasma glucose results between 100 to 125 mg/dL indicate increased risk for diabetes (prediabetes). Fasting plasma glucose results greater than or equal to 126 mg/dL meet the criteria for diagnosis of diabetes. In the absence of unequivocal hyperglycemia, results should be confirmed by repeat testing. In a patient with classic symptoms of hyperglycemia or hyperglycemic crisis, random plasma glucose results greater than or equal to 200 mg/dL meet the criteria for diagnosis of diabetes. Reference: Standards of Medical Care in Diabetes 2016, [place] [employer] Association. Diabetes Care. 2016.39(Suppl 1). Performed By: #### 2 4323-8 ####[facility] MILLTOWNCLIA [id number] [place] [address] [place] Potassium [Moles/Vol] 4.6 mmol/L Normal 3.7-5.1 [facility] Comment on above: Order Comment: Speci men Type: BLOOD SPECIMENOrdering Facility: [facility] Address: [address] [place] [address] Performed By: #### 2 4323-8 ####[facility] SYSTEMLIA [id number] [place] [address] [place] Protein [Mass/Vol] 7.3 g/dL Normal 6.3-8.0 [facility] Comment on above: Order Comment: Speci men Type: BLOOD SPECIMENOrdering Facility: [facility] Address: [address] [place] [address] Performed By: #### 2 4323-8 ####[facility] MILLTOWNCLIA [id number] [place] [address] [place] Sodium [Moles/Vol] 137 mmol/L Normal 136-144 [facility] Comment on above: Order Comment: Speci men Type: BLOOD SPECIMENOrdering Facility: [facility] Address: [address] [place] [address] Performed By: #### 2 4323-8 ####[facility] MILLWNCLIA [id number] [place] [address] [place] Urea nitrogen [Mass/Vol] 18 mg/dL Normal 9-24 [facility] Comment on above: Order Comment: Speci men Type: BLOOD SPECIMENOrdering Facility: [facility] Address: [address] [place] [address] Performed By: #### 2 4323-8 ####[facility] [id number] [place] [address] [place] PSA SerPl-mCncon 09-17-2024 Prostate specific Ag [Mass/Vol] 19.45 ng/mL High <2.60 [facility] Comment on above: Order Comment: Speci men Type: BLOOD SPECIMENOrdering Facility: [facility] Address: [address] [place] [address] Result Comment: Tota l PSA test methodology used is the Electrochemiluminescence Immunoassay by [employer]. Total PSA values by differing methodologies cannot be interchanged. For an individual patient, the significance of a PSA level should be interpreted in a broad clinical context, including age, race, family history, digital rectal exam, prostate size, results of prior testing (prostate biopsy, free PSA, PCA3), and use of 5-alpha reductase inhibitors. Considering the high incidence of asymptomatic cancer in the general population that may not pose an ultimate risk to a patient, the decision to recommend urological evaluation or prostate biopsy should be individualized after consideration of all these factors. REFERENCE: Joaquin Rey M.D., M.P.H., Pepe Shen M.D., Ph.D., Samuel Woods M.D., Raysa Johnson, M.P.H., Faith Pepper Sc.D. Effect of Verification Bias on Screening for Prostate Cancer by Measurement of Prostatic Specific Antigen. N Engl J Med 2003,349:335-42. Performed By: #### 2 857-1 ####[facility] LABCLIA [id number] [place] [id number] [place] CNPNon 08-25-[address] [facility] Telephone (HEMAWS) -- SALO NAGY ([id number]) 1950 M Date Time Provider Department 08/25/24 TANJA PATEL During your visit today, we recorded the following information about you: Tanja Patel LISW 08/25/2024 11:14 AM Signed SOCIAL WORK FOLLOW UP NOTE: [facility] Date of service: August 25, 2024 Salo Nagy is being seen for a follow up social work visit. Today's visit includes: spouse TOPICS ADDRESSED: SW notified by RN that pt's would like to speak to SW. SW called and left a detailed voicemail with SW's direct callback, will await return call from pt's . PLAN: Continue follow up as needed F/U APPOINTMENT: PRN Assigned SW listed in Care Team tab: Yes HIRA Hassan-Salas Allergies As of Date: 08/25/2024 (No Known Allergies) Date Reviewed: 08/24/2024 Reviewed by: Rossy Juarez, RN - Fully Assessed Reason for Visit: Social Work Services [507] Prescriptions as of 08/25/2024 - atorvastatin (LIPITOR) 40 mg tablet Take 40 mg by mouth once daily. - clopidogrel (PLAVIX) 75 mg tablet Take 75 mg by mouth once daily. - famotidine (PEPCID) 20 mg tablet Take 20 mg by mouth two times a day. - acetaminophen (TYLENOL EXTRA STRENGTH) 500 mg tablet Take 500 mg by mouth every 8 hours as needed. - tamsulosin (FLOMAX) 0.4 mg Take 1 capsule by mouth once daily - enzalutamide (XTANDI) 40 mg capsule Take 4 capsules (160mg) by mouth once daily. - pantoprazole DR (PROTONIX) 40 mg tablet Take 40 mg by mouth once daily. - hbcosbdwtth-mccjhnyzs-zcyw nter (TRELEGY ELLIPTA) 200-62.5-25 mcg inhalation powder Inhale 1 Puff as instructed once daily. - B-complex with vitamin C (SUPER B COMPLEX-VITAMIN C ORAL) Take 1 tablet by mouth once daily. - triamcinolone acetonide (NASACORT AQ) 55 mcg nasal inhaler Use 2 Sprays in each nostril once daily. - aspirin, enteric coated (ASPIRIN, ENTERIC COATED) 81 mg EC tablet Take 1 tablet by mouth once daily. - hydroCHLOROthiazide (HYDRODIURIL, ESIDRIX) 12.5 mg tablet Take 12.5 mg by mouth once daily. - iv contrast (will be provided with radiology test) CT Chest W -Inject, intravenously, once for 1 dose.No IV access, insert saline lock prior to the beginning of sedation, infusion, injection of imaging exam. Discontinue saline lock post exam. If Pt. has a central line or IVAD, may access for administration according to line specific nursing protocol. Once exam is complete flush line and de-access according to line specific nursing protocol in the CT contrast administration guidelines link. - docusate sodium (COLACE) 100 mg capsule Take 1 capsule by mouth twice daily as needed. - rosuvastatin (CRESTOR) 5 mg tablet Take 5 mg by mouth once daily. - ramipril (ALTACE) 10 mg capsule Take 10 mg by mouth once daily. - metoprolol tartrate, short acting, (LOPRESSOR) 25 mg tablet TAKE 1/2 (ONE-HALF) TABLET BY MOUTH TWICE DAILY - calcium carbonate-vitamin D3 (OSCAL+D) 500 mg(1,250mg) -400 unit chewable tablet Take 1 tablet by mouth once daily. 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] 09/07/2018 Bilateral carotid artery stenosis [I65.23] 09/07/2018 Bone metastases (HCC) [C79.51] 01/14/2019 AAA (abdominal aortic aneurysm) (HCC) [I71.40] 10/29/2019 Acute urinary retention [R33.8] 10/30/2019 10/30/2019 Hypoxemia [R09.02] 08/28/2020 Acute pulmonary embolism without acute cor pulm*08/29/2020 Elevated LFTs [R79.89] 04/15/2022 Encounter Status:Closed by TANJA PATEL on 08/25/24 Normal [facility] CNOVon 08-24-2024 CNOV Office Visit (RADTWS ) -- SALO NAGY ([id number]) 1950 M Date Time Provider Department 08/24/24 2:00 PM JACK PEARSON During your visit today, we recorded the following information about you: Temperature Pulse Respiration Blood pressure 96.9 degrees 74/minute 20/minute 112/76 Jack Pearson MD 08/24/2024 2:02 PM Signed Radiation Oncology - On Treatment Review (OTR) Note PATIENT NAME: Salo Nagy PATIENT DIAGNOSIS: Metastatic prostate cancer with bone metastasis. COURSE: palliative AREA TREATED: R sacrum/acetabulum CURRENT DOSE: 1800 cGy in 6 fx PLANNED DOSE: 3000 cGy in 10 fx SUBJECTIVE: He is doing well without any specific new complaints. EXAM: KPS: 90 General Appearance: Alert and oriented. No acute distress. IMAGING/LAB RESULTS: None Treatment chart checked: Yes Patient treatment site reviewed and verified:Yes Port films reviewed and current:Yes Medications started: None ASSESSMENT/PLAN: Clinically stable. Toxicity within expected parameters. Continue radiation treatment as planned. MD Alin Burns Kayla, RN 08/24/2024 2:02 PM Signed Radiation Therapy - Nursing Note (OTV) PATIENT NAME: Salo Nagy PATIENT August 24, 2024 [facility] FACILITY/LOCATION: [place] NURSING NOTE TYPE: GENERAL Subjective Data Everything going well bedsides yesterday. I didn't get radiation with the machine being down. Additional Data Do you want to see a Die Cutting Machine Operator? No Status: Patient is male Stress Scale: On a scale of 0 to 10, what number best describes how much distress you have experienced in the past week?(0 being no distress and 10 being extreme distress) 0 Social work notified: yes Nursing Assessment Fatigue: increased fatigue over baseline but not altering normal activities Appetite: good Nutritional Intake: Regular oral intake. Weight Gain/Loss: Not applicable Ambulatory weight history: Last 6 Encounter Wt Readings: Date: Wt: 08/09/2024 95.7 kg (211 lb) 08/06/2024 96.8 kg (213 lb 8 oz) 07/02/2024 94.3 kg (208 lb) 02/18/2024 101.2 kg (223 lb) 11/26/2023 99.8 kg (220 lb) 09/03/2023 99.1 kg (218 lb 8 oz) Nausea:None Vomiting: None Bowel Function: normal bowel movements Erythema/Hyperpigmentation :none Desquamation:none Rash:none Skin Care: None Skin Sensation: Within Normal Limits Focused Assessment GENERAL: No additional assessment areas noted. Increased numbness/ tingling in bilateral hands SIGNED by: Rossy Juarez RN Allergies As of Date: 08/24/2024 (No Known Allergies) Date Reviewed: 08/24/2024 Reviewed by: Rossy Juarez RN - Fully Assessed Reason for Visit: Radiotherapy On-treatment Visit [1722] Primary Visit Diagnosis:Prostate cancer metastatic to bone (HCC) [C61, C79.51] Prescriptions as of 08/24/2024 - atorvastatin (LIPITOR) 40 mg tablet Take 40 mg by mouth once daily. - clopidogrel (PLAVIX) 75 mg tablet Take 75 mg by mouth once daily. - famotidine (PEPCID) 20 mg tablet Take 20 mg by mouth two times a day. - acetaminophen (TYLENOL EXTRA STRENGTH) 500 mg tablet Take 500 mg by mouth every 8 hours as needed. - tamsulosin (FLOMAX) 0.4 mg Take 1 capsule by mouth once daily - enzalutamide (XTANDI) 40 mg capsule Take 4 capsules (160mg) by mouth once daily. - pantoprazole DR (PROTONIX) 40 mg tablet Take 40 mg by mouth once daily. - lnicufzbvbj-nievmtegt-tzjp nter (TRELEGY ELLIPTA) 200-62.5-25 mcg inhalation powder Inhale 1 Puff as instructed once daily. - B-complex with vitamin C (SUPER B COMPLEX-VITAMIN C ORAL) Take 1 tablet by mouth once daily. - triamcinolone acetonide (NASACORT AQ) 55 mcg nasal inhaler Use 2 Sprays in each nostril once daily. - aspirin, enteric coated (ASPIRIN, ENTERIC COATED) 81 mg EC tablet Take 1 tablet by mouth once daily. - hydroCHLOROthiazide (HYDRODIURIL, ESIDRIX) 12.5 mg tablet Take 12.5 mg by mouth once daily. - iv contrast (will be provided with radiology test) CT Chest W -Inject, intravenously, once for 1 dose.No IV access, insert saline lock prior to the beginning of sedation, infusion, injection of imaging exam. Discontinue saline lock post exam. If Pt. has a central line or IVAD, may access for administration according to line specific nursing protocol. Once exam is complete flush line and de-access according to line specific nursing protocol in the CT contrast administration guidelines link. - docusate sodium (COLACE) 100 mg capsule Take 1 capsule by mouth twice daily as needed. - rosuvastatin (CRESTOR) 5 mg tablet Take 5 mg by mouth once daily. - ramipril (ALTACE) 10 mg capsule Take 10 mg by mouth once daily. - metoprolol tartrate, short acting, (LOPRESSOR) 25 mg tablet TAKE 1/2 (ONE-HALF) TABLET BY MOUTH TWICE DAILY - calcium carbonate-vitamin D3 (OSCAL+D) 500 mg(1,250mg) -400 unit chewable tablet Take 1 tablet (more content not included)... Normal [facility] .Auto Diffon 08-17-2024 Basophil, Absolute 0.0 10 3/mcL Normal 0.0-0.3 [facility] Comment on above: Performed By: #### P SA, ADIFF, ANEU, GFR, LIPID, VIDH, CMP, CBC #### [address] [address] #### PTH #### [address] [address] Basophils/100 WBC (Bld) 0.5 % Normal 0.0-2.5 [facility] Comment on above: Performed By: #### P SA, ADIFF, ANEU, GFR, LIPID, VIDH, CMP, CBC #### [place] [address] #### PTH #### [address] [address] Eosinophil, Absolute 0.2 10 3/mcL Normal 0.0-0.7 [facility] Comment on above: Performed By: #### P SA, ADIFF, ANEU, GFR, LIPID, VIDH, CMP, CBC #### [place] [address] #### PTH #### [address] [address] Eosinophils/100 WBC (Bld) 2.9 % Normal 0.0-6.0 [facility] Comment on above: Performed By: #### P SA, ADIFF, ANEU, GFR, LIPID, VIDH, CMP, CBC #### [place] [address] #### PTH #### [address] [address] Lymphocyte, Absolute 2.1 10 3/mcL Normal 0.9-4.3 [facility] Comment on above: Performed By: #### P SA, ADIFF, ANEU, GFR, LIPID, VIDH, CMP, CBC #### [place] [address] #### PTH #### [address] [address] Lymphocytes/100 WBC (Bld) 25.7 % Normal 20.0-40.0 [facility] Comment on above: Performed By: #### P SA, ADIFF, ANEU, GFR, LIPID, VIDH, CMP, CBC #### [address] [address] #### PTH #### [address] [address] Monocyte, Absolute 0.7 10 3/mcL Normal 0.1-1.4 [facility] Comment on above: Performed By: #### P SA, ADIFF, ANEU, GFR, LIPID, VIDH, CMP, CBC #### [address] [address] #### PTH #### [address] [address] Monocytes/100 WBC (Bld) 8.9 % Normal 2.0-13.0 [facility] Comment on above: Performed By: #### P SA, ADIFF, ANEU, GFR, LIPID, VIDH, CMP, CBC #### [address] [address] #### PTH #### [address] [address] Neutrophils/100 WBC (Bld) 62.0 % Normal 50.0-75.0 [facility] Comment on above: Performed By: #### P SA, ADIFF, ANEU, GFR, LIPID, VIDH, CMP, CBC #### [address] [address] #### PTH #### [address] [address] .GFRon 08-17-2024 Estimated Glomerular Filtration Rate 56 ml/min/1.73sqm Normal [facility] Comment on above: Result Comment: Stages of Chronic Kidney Disease (CKD) Stage Description eGFR(ml/min/1.73 sq.m.) CKD 1 Normal kidney function or >=90 normal kindney function with possible kidney damage (ex. Proteinuria) CKD 2 Kidney damage with mild loss 60-89 of kidney function CKD 3a Mild to moderate loss of kidney 45-59 function CKD 3b Moderate to severe loss of 30-44 of kindey function CKD 4 Severe loss of kidney function 15-29 CKD 5 Kidney failure <15 Note: (go live 2024) the eGFR calculation was updated to the 2020 CKD-EPI creatinine equation without a race factor to calculate the eGFR results. Performed By: #### P SA, ADIFF, ANEU, GFR, LIPID, VIDH, CMP, CBC #### [place] [address] #### PTH #### [place] [address] .NEUABSon 08-17-2024 Neutrophil, Absolute 5.0 10 3/mcL Normal 2.3-8.1 [facility] Comment on above: Performed By: #### P SA, ADIFF, ANEU, GFR, LIPID, VIDH, CMP, CBC #### [place] [address] #### PTH #### [place] [address] CBCon 08-17-2024 Erythrocyte distribution width (RBC) [Ratio] 17.2 % High 11.5-15.5 [facility] Comment on above: Performed By: #### P SA, ADIFF, ANEU, GFR, LIPID, VIDH, CMP, CBC #### [place] [address] #### PTH #### [place] [address] Hematocrit (Bld) [Volume fraction] 40.1 % Normal 40.0-52.0 [facility] Comment on above: Performed By: #### P SA, ADIFF, ANEU, GFR, LIPID, VIDH, CMP, CBC #### [place] [address] #### PTH #### [place] [address] Hgb 12.9 G/dL Low 13.0-17.5 [facility] Comment on above: Performed By: #### P SA, ADIFF, ANEU, GFR, LIPID, VIDH, CMP, CBC #### [place] [address] #### PTH #### [address] [address] MCH (RBC) [Entitic mass] 27.3 pg Normal 27.0-33.0 [facility] Comment on above: Performed By: #### P SA, ADIFF, ANEU, GFR, LIPID, VIDH, CMP, CBC #### [place] [address] #### PTH #### [place] [address] MCHC 32.2 G/dL Normal 32.0-36.0 [facility] Comment on above: Performed By: #### P SA, ADIFF, ANEU, GFR, LIPID, VIDH, CMP, CBC #### [place] [address] #### PTH #### [place] [address] MCV (RBC) [Entitic vol] 84.9 fL Normal 81.0-100.0 [facility] Comment on above: Performed By: #### P SA, ADIFF, ANEU, GFR, LIPID, VIDH, CMP, CBC #### [place] [address] #### PTH #### [place] [address] Platelet 292 10 3/mcL Normal 150-450 [facility] Comment on above: Performed By: #### P SA, ADIFF, ANEU, GFR, LIPID, VIDH, CMP, CBC #### [place] [address] #### PTH #### [place] [address] Platelet mean volume (Bld) [Entitic vol] 9.1 fL Normal 6.4-10.5 [facility] Comment on above: Performed By: #### P SA, ADIFF, ANEU, GFR, LIPID, VIDH, CMP, CBC #### [place] [address] #### PTH #### [place] [address] RBC 4.72 10 6/mcL Normal 4.50-6.00 [facility] Comment on above: Performed By: #### P SA, ADIFF, ANEU, GFR, LIPID, VIDH, CMP, CBC #### [place] [address] #### PTH #### [place] [address] WBC 8.1 10 3/mcL Normal 4.5-10.8 [facility] Comment on above: Performed By: #### P SA, ADIFF, ANEU, GFR, LIPID, VIDH, CMP, CBC #### [place] [address] #### PTH #### [place] [address] CMPon 08-17-2024 Albumin Level 3.2 G/dL Low 3.4-4.8 [facility] Comment on above: Performed By: #### P SA, ADIFF, ANEU, GFR, LIPID, VIDH, CMP, CBC #### [place] [address] #### PTH #### [place] [address] Albumin/Globulin [Mass ratio] 0.7 {ratio} Low 1.1-2.5 [facility] Comment on above: Performed By: #### P SA, ADIFF, ANEU, GFR, LIPID, VIDH, CMP, CBC #### [place] [address] #### PTH #### [place] [address] ALP [Catalytic activity/Vol] 103 U/L Normal 40-135 [facility] Comment on above: Performed By: #### P SA, ADIFF, ANEU, GFR, LIPID, VIDH, CMP, CBC #### [address] [address] #### PTH #### [place] [address] ALT [Catalytic activity/Vol] 14 U/L Low 16-63 [facility] Comment on above: Performed By: #### P SA, ADIFF, ANEU, GFR, LIPID, VIDH, CMP, CBC #### [address] [address] #### PTH #### [address] [address] AST [Catalytic activity/Vol] 14 U/L Normal 10-40 [facility] Comment on above: Performed By: #### P SA, ADIFF, ANEU, GFR, LIPID, VIDH, CMP, CBC #### [address] [address] #### PTH #### [address] [address] Bili Total 0.4 mg/dL Normal 0.2-1.0 [facility] Comment on above: Result Comment: Use of this assay is not recommended for patients undergoing treatment with eltrombopag due to the potential for falsely elevated results. Performed By: #### P SA, ADIFF, ANEU, GFR, LIPID, VIDH, CMP, CBC #### [place] [address] #### PTH #### [address] [address] BUN/Creatinine Ratio 11 ratio Normal 7-27 [facility] Comment on above: Performed By: #### P SA, ADIFF, ANEU, GFR, LIPID, VIDH, CMP, CBC #### [place] [address] #### PTH #### [address] [address] Calcium [Mass/Vol] 9.5 mg/dL Normal 8.4-10.2 [facility] Comment on above: Performed By: #### P SA, ADIFF, ANEU, GFR, LIPID, VIDH, CMP, CBC #### [place] [address] #### PTH #### [address] [address] Chloride [Moles/Vol] 105 mmol/L Normal 98-107 [facility] Comment on above: Performed By: #### P SA, ADIFF, ANEU, GFR, LIPID, VIDH, CMP, CBC #### [address] [address] #### PTH #### [address] [address] CO2 [Moles/Vol] 25 mmol/L Normal 23-31 [facility] Comment on above: Performed By: #### P SA, ADIFF, ANEU, GFR, LIPID, VIDH, CMP, CBC #### [address] [address] #### PTH #### [place] [address] Creatinine [Mass/Vol] 1.33 mg/dL High 0.67-1.17 [facility] Comment on above: Performed By: #### P SA, ADIFF, ANEU, GFR, LIPID, VIDH, CMP, CBC #### [place] [address] #### PTH #### [place] [address] Electrolyte Balance 11.0 mEq/L Normal 4.0-15.0 [facility] Comment on above: Performed By: #### P SA, ADIFF, ANEU, GFR, LIPID, VIDH, CMP, CBC #### [place] [address] #### PTH #### [address] [address] Globulin 4.3 G/dL Normal 2.7-4.4 [facility] Comment on above: Performed By: #### P SA, ADIFF, ANEU, GFR, LIPID, VIDH, CMP, CBC #### [address] [address] #### PTH #### [place] [address] Glucose [Mass/Vol] 111 mg/dL High 83-110 [facility] Comment on above: Performed By: #### P SA, ADIFF, ANEU, GFR, LIPID, VIDH, CMP, CBC #### [place] [address] #### PTH #### [address] [address] Potassium [Moles/Vol] 4.7 mmol/L Normal 3.5-5.1 [facility] Comment on above: Performed By: #### P SA, ADIFF, ANEU, GFR, LIPID, VIDH, CMP, CBC #### [place] [address] #### PTH #### [address] [address] Sodium [Moles/Vol] 141 mmol/L Normal 136-145 [facility] Comment on above: Performed By: #### P SA, ADIFF, ANEU, GFR, LIPID, VIDH, CMP, CBC #### [place] [address] #### PTH #### [address] [address] Total Protein 7.5 G/dL Normal 6.4-8.2 [facility] Comment on above: Performed By: #### P SA, ADIFF, ANEU, GFR, LIPID, VIDH, CMP, CBC #### [place] [address] #### PTH #### [address] [address] Urea nitrogen [Mass/Vol] 14 mg/dL Normal 7-18 [facility] Comment on above: Performed By: #### P SA, ADIFF, ANEU, GFR, LIPID, VIDH, CMP, CBC #### [place] [address] #### PTH #### [address] [address] CNOVon 08-17-2024 CNOV Office Visit (ZOFIATWS ) -- SAOL NAGY ([id number]) 1950 M Date Time Provider Department 08/17/24 2:00 PM JACK PEARSON During your visit today, we recorded the following information about you: Temperature Pulse Blood pressure 97 degrees 78/minute 126/81 Ophelia Carlos RN 08/17/2024 2:27 PM Signed Radiation Therapy - Nursing Note (OTV) PATIENT NAME: Salo Nagy PATIENT August 17, 2024 [facility] FACILITY/LOCATION: [facility] NOTE TYPE: GENERAL Subjective Data no new complaints Additional Data Do you want to see a Die Cutting Machine Operator? No Status: Patient is male Stress Scale: On a scale of 0 to 10, what number best describes how much distress you have experienced in the past week?(0 being no distress and 10 being extreme distress) 1 Social work notified: Pt denied need to see case management social worker at this time. Nursing Assessment Fatigue: none Appetite: good Nutritional Intake: Regular oral intake. Weight Gain/Loss: Not applicable Ambulatory weight history: Last 6 Encounter Wt Readings: Date: Wt: 08/09/2024 95.7 kg (211 lb) 08/06/2024 96.8 kg (213 lb 8 oz) 07/02/2024 94.3 kg (208 lb) 02/18/2024 101.2 kg (223 lb) 11/26/2023 99.8 kg (220 lb) 09/03/2023 99.1 kg (218 lb 8 oz) Nausea:None Vomiting: None Bowel Function: normal bowel movements Erythema/Hyperpigmentation :none Desquamation:none Rash:none Skin Care: Aquaphor Skin Sensation: Within Normal Limits Focused Assessment right sacrum/acetabulium: denies bladder complaints SIGNED by: MANJINDER Lay Daesung, MD 08/17/2024 2:27 PM Signed Radiation Oncology - On Treatment Review (OTR) Note PATIENT NAME: Salo Nagy PATIENT DIAGNOSIS: Metastatic prostate cancer with bone metastasis. COURSE: palliative AREA TREATED: R sacrum/acetabulum CURRENT DOSE: 600 cGy in 2 fx PLANNED DOSE: 3000 cGy in 10 fx SUBJECTIVE: He is doing well without any specific new complaints. He feels that his right lower back/pelvis pain may be worse. He takes Tylenol as needed. EXAM: KPS: 90 General Appearance: Alert and oriented. No acute distress. IMAGING/LAB RESULTS: None Treatment chart checked: Yes Patient treatment site reviewed and verified:Yes Port films reviewed and current:Yes Medications started: None ASSESSMENT/PLAN: Clinically stable. Toxicity within expected parameters. Continue radiation treatment as planned. Jack Pearson MD Allergies As of Date: 08/17/2024 (No Known Allergies) Date Reviewed: 08/17/2024 Reviewed by: Ophelia Carlos RN - Fully Assessed Reason for Visit: Primary Visit Diagnosis:Prostate cancer metastatic to bone (HCC) [C61, C79.51] Prescriptions as of 08/17/2024 - atorvastatin (LIPITOR) 40 mg tablet Take 40 mg by mouth once daily. - clopidogrel (PLAVIX) 75 mg tablet Take 75 mg by mouth once daily. - famotidine (PEPCID) 20 mg tablet Take 20 mg by mouth two times a day. - acetaminophen (TYLENOL EXTRA STRENGTH) 500 mg tablet Take 500 mg by mouth every 8 hours as needed. - tamsulosin (FLOMAX) 0.4 mg Take 1 capsule by mouth once daily - enzalutamide (XTANDI) 40 mg capsule Take 4 capsules (160mg) by mouth once daily. - pantoprazole DR (PROTONIX) 40 mg tablet Take 40 mg by mouth once daily. - onrunvdjmaa-yscmptcnv-rtdv nter (TRELEGY ELLIPTA) 200-62.5-25 mcg inhalation powder Inhale 1 Puff as instructed once daily. - B-complex with vitamin C (SUPER B COMPLEX-VITAMIN C ORAL) Take 1 tablet by mouth once daily. - triamcinolone acetonide (NASACORT AQ) 55 mcg nasal inhaler Use 2 Sprays in each nostril once daily. - aspirin, enteric coated (ASPIRIN, ENTERIC COATED) 81 mg EC tablet Take 1 tablet by mouth once daily. - hydroCHLOROthiazide (HYDRODIURIL, ESIDRIX) 12.5 mg tablet Take 12.5 mg by mouth once daily. - iv contrast (will be provided with radiology test) CT Chest W -Inject, intravenously, once for 1 dose.No IV access, insert saline lock prior to the beginning of sedation, infusion, injection of imaging exam. Discontinue saline lock post exam. If Pt. has a central line or IVAD, may access for administration according to line specific nursing protocol. Once exam is complete flush line and de-access according to line specific nursing protocol in the CT contrast administration guidelines link. - docusate sodium (COLACE) 100 mg capsule Take 1 capsule by mouth twice daily as needed. - rosuvastatin (CRESTOR) 5 mg tablet Take 5 mg by mouth once daily. - ramipril (ALTACE) 10 mg capsule Take 10 mg by mouth once daily. - metoprolol tartrate, short acting, (LOPRESSOR) 25 mg tablet TAKE 1/2 (ONE-HALF) TABLET BY MOUTH TWICE DAILY - calcium carbonate-vitamin D3 (OSCAL+D) 500 mg(1,250mg) -400 unit chewable tablet Take 1 tablet by mouth once daily. Problem List As Of Date 08/17/2024 Noted Resolved Malignant neoplasm of prostate (HC (more content not included)... Normal [facility] LABORATORYOrdered By: SYSTEM SYSTEM on 08-17-2024 25-hydroxyvitamin D3 [Mass/Vol] 45.9 ng/mL Invalid Interpretation Code AO ADM SS Comment on above: Interpretive Data: I nterpretive Values Based on Total 25(OH) Vitamin D: Deficient <20 ng/mL Insufficient 20 - <30 ng/mL Sufficient 30-100 ng/mL Albumin BCP dye [Mass/Vol] 3.2 G/dL Low 3.4 - 4.8 G/dL AO ADM SS Albumin/Globulin [Mass ratio] 0.7 {ratio} Low 1.1 - 2.5 ratio AO ADM SS ALP [Catalytic activity/Vol] 103 U/L Normal 40 - 135 U/L AO ADM SS ALT With P-5'-P [Catalytic activity/Vol] 14 U/L Low 16 - 63 U/L AO ADM SS AST With P-5'-P [Catalytic activity/Vol] 14 U/L Normal 10 - 40 U/L AO ADM SS Basophils (Bld) [#/Vol] 0.0 103/mcL Normal 0.0 - 0.3 10^3/mcL AO Workflow SS Basophils/100 WBC (Bld) 0.5 % Normal 0.0 - 2.5 % AO Workflow SS Bilirubin [Mass/Vol] 0.4 mg/dL Normal 0.2 - 1 .0 mg/dL AO ADM SS Comment on above: Interpretive Data: U se of this assay is not recommended for patients undergoing treatment with eltrombopag due to the potential for falsely elevated results. Calcium [Mass/Vol] 9.5 mg/dL Normal 8.4 - 10. 2 mg/dL AO ADM SS Chloride [Moles/Vol] 105 mmol/L Normal 98 - 10 7 mmol/L AO ADM SS CO2 [Moles/Vol] 25 mmol/L Normal 23 - 31 mmol/L AO ADM SS Creatinine [Mass/Vol] 1.33 mg/dL High 0.67 - 1.17 mg/dL AO ADM SS Electrolyte Balance 11.0 mEq/L Normal 4.0 - 15 .0 mEq/L AO ADM SS Eosinophil, Absolute 0.2 103/mcL Normal 0.0 - 0 .7 10^3/mcL AO Workflow SS Eosinophils/100 WBC (Bld) 2.9 % Normal 0.0 - 6.0 % AO Workflow SS Erythrocyte distribution width (RBC) [Ratio] 17.2 % High 11.5 - 15.5 % AO Workflow SS Estimated Glomerular Filtration Rate 56 ml/min/1.73sqm Invalid Interpretation Code AO Chemistry S Comment on above: Interpretive Data: Stages of Chronic Kidney Disease (CKD) Stage Description eGFR(ml/min/1.73 sq.m.) CKD 1 Normal kidney function or >=90 normal kindney function with possible kidney damage (ex. Proteinuria) CKD 2 Kidney damage with mild loss 60-89 of kidney function CKD 3a Mild to moderate loss of kidney 45-59 function CKD 3b Moderate to severe loss of 30-44 of kindey function CKD 4 Severe loss of kidney function 15-29 CKD 5 Kidney failure <15 Note: (go live 2024) the eGFR calculation was updated to the 2020 CKD-EPI creatinine equation without a race factor to calculate the eGFR results. Globulin 4.3 G/dL Normal 2.7 - 4.4 G/dL AO ADM SS Glucose [Mass/Vol] 111 mg/dL High 83 - 110 mg/dL AO ADM SS Hematocrit (Bld) [Volume fraction] 40.1 % Normal 40.0 - 52.0 % AO Workflow SS Hemoglobin (Bld) [Mass/Vol] 12.9 G/dL Low 13.0 - 17.5 G/dL AO Workflow SS Lymphocytes (Bld) [#/Vol] 2.1 103/mcL Normal 0.9 - 4.3 10^3/mcL AO Workflow SS Lymphocytes/100 WBC (Bld) 25.7 % Normal 20.0 - 40.0 % AO Workflow SS MCH (RBC) [Entitic mass] 27.3 pg Normal 27.0 - 33.0 pg AO Workflow SS MCHC 32.2 G/dL Normal 32.0 - 36.0 G/dL AO Workflow SS MCV (RBC) [Entitic vol] 84.9 fL Normal 81.0 - 100.0 fL AO Workflow SS Monocytes (Bld) [#/Vol] 0.7 103/mcL Normal 0.1 - 1.4 10^3/mcL AO Workflow SS Monocytes/100 WBC (Bld) 8.9 % Normal 2.0 - 13.0 % AO Workflow SS Neutrophils (Bld) [#/Vol] 5.0 103/mcL Normal 2.3 - 8.1 10^3/mcL AO Workflow SS Neutrophils/100 WBC (Bld) 62.0 % Normal 50.0 - 75.0 % AO Workflow SS Parathyrin.intact [Mass/Vol] 45.6 pg/mL Normal 18.5 - 88.0 pg/mL AH ADM SS Platelet mean volume (Bld) [Entitic vol] 9.1 fL Normal 6.4 - 10.5 fL AO Workflow SS Platelets (Bld) [#/Vol] 292 103/mcL Normal 150 - 450 10^3/mcL AO Workflow SS Potassium [Moles/Vol] 4.7 mmol/L Normal 3.5 - 5.1 mmol/L AO ADM SS Prostate specific Ag [Mass/Vol] 35.64 ng/mL High 0.00 - 4.00 ng/mL AO ADM SS Protein [Mass/Vol] 7.5 G/dL Normal 6.4 - 8.2 G/dL AO ADM SS RBC (Bld) [#/Vol] 4.72 106/mcL Normal 4.50 - 6.0 0 10^6/mcL AO Workflow SS Sodium [Moles/Vol] 141 mmol/L Normal 136 - 145 mmol/L AO ADM SS Urea nitrogen [Mass/Vol] 14 mg/dL Normal 7 - 18 mg/dL AO ADM SS Urea nitrogen/Creatinine [Mass ratio] 11 ratio Normal 7 - 27 ratio AO ADM SS WBC (Bld) [#/Vol] 8.1 103/mcL Normal 4.5 - 10.8 10^3/mcL AO Workflow SS LABORATORYOrdered By: Neto Guardado on 08-17-2024 Cholesterol [Mass/Vol] 166 mg/dL Normal 0 - 200 mg/dL AO ADM SS Comment on above: Interpretive Data: C holesterol Reference Interval: Less than 200 Desirable 200-239 Borderline high risk 240 and above High risk Cholesterol in HDL [Mass/Vol] 58 mg/dL Normal 40 - 60 mg/dL AO ADM SS Cholesterol in LDL [Mass/Vol] 72 mg/dL Normal 0 - 130 mg/dL AO ADM SS Triglyceride [Mass/Vol] 182 mg/dL High 0 - 150 mg/dL AO ADM SS Comment on above: Interpretive Data: T riglyceride Reference Interval: Less than 150 Normal 150-199 Borderline high risk 200-499 High risk 500 or higher Very high risk LIPIDon 08-17-2024 Cholesterol [Mass/Vol] 166 mg/dL Normal 0-200 [facility] Comment on above: Result Comment: Chol esterol Reference Interval: Less than 200 Desirable 200-239 Borderline high risk 240 and above High risk Performed By: #### P SA, ADIFF, ANEU, GFR, LIPID, VIDH, CMP, CBC #### [address] [address] #### PTH #### [address] [address] Cholesterol in HDL [Mass/Vol] 58 mg/dL Normal 40-60 [facility] Comment on above: Performed By: #### P SA, ADIFF, ANEU, GFR, LIPID, VIDH, CMP, CBC #### [address] [address] #### PTH #### [address] [address] Cholesterol in LDL [Mass/Vol] 72 mg/dL Normal 0-130 [facility] Comment on above: Performed By: #### P SA, ADIFF, ANEU, GFR, LIPID, VIDH, CMP, CBC #### [address] [address] #### PTH #### [address] [address] Triglyceride [Mass/Vol] 182 mg/dL High 0-150 [facility] Comment on above: Result Comment: Trig lyceride Reference Interval: Less than 150 Normal 150-199 Borderline high risk 200-499 High risk 500 or higher Very high risk Performed By: #### P SA, ADIFF, ANEU, GFR, LIPID, VIDH, CMP, CBC #### [address] [address] #### PTH #### [place] [address] PSAon 08-17-2024 Prostate Specific Antigen 35.64 ng/mL High 0.00-4.00 [facility] Comment on above: Performed By: #### P SA, ADIFF, ANEU, GFR, LIPID, VIDH, CMP, CBC #### [address] [address] #### PTH #### [place] [address] PTHon 08-17-2024 PTH, Intact 45.6 pg/mL Normal 18.5-88.0 [facility] Comment on above: Performed By: #### P SA, ADIFF, ANEU, GFR, LIPID, VIDH, CMP, CBC #### [address] [address] #### PTH #### [place] [address] VIDHon 08-17-2024 Vit. D 25-Hydroxy 45.9 ng/mL Normal [facility] Comment on above: Result Comment: Inte rpretive Values Based on Total 25(OH) Vitamin D: Deficient <20 ng/mL Insufficient 20 - <30 ng/mL Sufficient 30-100 ng/mL Performed By: #### P SA, ADIFF, ANEU, GFR, LIPID, VIDH, CMP, CBC #### [address] [address] #### PTH #### [place] [id number] [place] [id number] [facility] 08-11-2024 CNNURSE Nurse Visit (RADTWS) -- SALO NAGY ([id number]) 1950 M Date Time Provider Department 08/11/24 11:00 AM [facility] During your visit today, we recorded the following information about you: Ophelia Carlos RN 08/11/2024 11:29 AM Signed Radiation Therapy - Patient Education Note PATIENT NAME: Salo Nagy PATIENT August 11, 2024 [facility] FACILITY/LOCATION: [place] READINESS TO LEARN Cognitive Ability: Alert and oriented Motivation to learn: Eager Family Support: High - Very involved in pt care Instruction provide to: Patient and Spouse Patient learns best by: Individual Instruction Written Instruction - Hand-outs Verbal Instruction Factors effecting learning: None Physical limitations effecting learning: None LEARNING RESPONSE Diagnosis: Pt simulated today for radiation therapy to pelvis. Education Topic/Teaching Points: Radiation therapy, Side effects, and OTV: Method of instruction: Teach Back skin care Individual instruction Written instruction/Handouts Verbal instruction Patient /Family response: Patient and family verbalized understanding of radiation treatments, side effects, OTV, and transportation. Follow-up plan: Complete - No need for follow-up Contact information given. Supplemental material: Informational handouts on Bladder function, Diarrhea, Fatigue, and Skin changes. Referral (recommendation): None, Pt denied need for social work, van service, and telecommunications professional. Patient has an Onbody or Implanted device: No Signed by: Ophelia Carlos RN Allergies As of Date: 08/11/2024 (No Known Allergies) Date Reviewed: 08/09/2024 Reviewed by: Joleen Canales RN - Fully Assessed Reason for Visit: Patient Education [91] Primary Visit Diagnosis:Prostate cancer metastatic to bone (HCC) [C61, C79.51] Prescriptions as of 08/11/2024 - atorvastatin (LIPITOR) 40 mg tablet Take 40 mg by mouth once daily. - clopidogrel (PLAVIX) 75 mg tablet Take 75 mg by mouth once daily. - famotidine (PEPCID) 20 mg tablet Take 20 mg by mouth two times a day. - acetaminophen (TYLENOL EXTRA STRENGTH) 500 mg tablet Take 500 mg by mouth every 8 hours as needed. - tamsulosin (FLOMAX) 0.4 mg Take 1 capsule by mouth once daily - enzalutamide (XTANDI) 40 mg capsule Take 4 capsules (160mg) by mouth once daily. - pantoprazole DR (PROTONIX) 40 mg tablet Take 40 mg by mouth once daily. - jcwoplztftv-msvkyruce-ymfg nter (TRELEGY ELLIPTA) 200-62.5-25 mcg inhalation powder Inhale 1 Puff as instructed once daily. - B-complex with vitamin C (SUPER B COMPLEX-VITAMIN C ORAL) Take 1 tablet by mouth once daily. - triamcinolone acetonide (NASACORT AQ) 55 mcg nasal inhaler Use 2 Sprays in each nostril once daily. - aspirin, enteric coated (ASPIRIN, ENTERIC COATED) 81 mg EC tablet Take 1 tablet by mouth once daily. - hydroCHLOROthiazide (HYDRODIURIL, ESIDRIX) 12.5 mg tablet Take 12.5 mg by mouth once daily. - iv contrast (will be provided with radiology test) CT Chest W -Inject, intravenously, once for 1 dose.No IV access, insert saline lock prior to the beginning of sedation, infusion, injection of imaging exam. Discontinue saline lock post exam. If Pt. has a central line or IVAD, may access for administration according to line specific nursing protocol. Once exam is complete flush line and de-access according to line specific nursing protocol in the CT contrast administration guidelines link. - docusate sodium (COLACE) 100 mg capsule Take 1 capsule by mouth twice daily as needed. - rosuvastatin (CRESTOR) 5 mg tablet Take 5 mg by mouth once daily. - ramipril (ALTACE) 10 mg capsule Take 10 mg by mouth once daily. - metoprolol tartrate, short acting, (LOPRESSOR) 25 mg tablet TAKE 1/2 (ONE-HALF) TABLET BY MOUTH TWICE DAILY - calcium carbonate-vitamin D3 (OSCAL+D) 500 mg(1,250mg) -400 unit chewable tablet Take 1 tablet by mouth once daily. Problem List As Of Date 08/11/2024 Noted Resolved Malignant neoplasm of prostate (HCC) [C61] 07/10/2018 Prostate cancer metastatic to bone (HCC) [C61, *07/24/2018 Essential hypertension [I10] 09/07/2018 CVA (cerebral vascular accident) (HCC) [I63.9] 09/07/2018 Neoplasm of unspecified behavior of bone, soft *06/18/2018 Panlobular emphysema (HCC) [J43.1] 09/07/2018 Claudication of both lower extremities (HCC) [I*09/07/2018 AAA (abdominal aortic aneurysm) without rupture*09/07/2018 Iliac aneurysm (HCC) [I72.3] 09/07/2018 Bilateral carotid artery stenosis [I65.23] 09/07/2018 Bone metastases (HCC) [C79.51] 01/14/2019 AAA (abdominal aortic aneurysm) (HCC) [I71.40] 10/29/2019 Acute urinary retention [R33.8] 10/30/2019 10/30/2019 Hypoxemia [R09.02] 08/28/2020 Acute pulmonary embolism without acute cor pulm*08/29/2020 Elevated LFTs [R79.89] 04/15/2022 Encounter Status:Closed by OPHELIA CARLOS on (more content not included)... Normal [facility] CNOVon 08-09-2024 CNOV Office Visit (RADTWS ) -- SALO NAGY ([id number]) 1950 M Date Time Provider Department 08/09/24 9:30 AM JACK PEARSON RADRADHA During your visit today, we recorded the following information about you: Temperature Pulse Respiration Blood pressure 97 degrees 70/minute 14/minute 145/82 Weight 95.7 kg Joleen Canales RN 08/10/2024 11:50 AM Signed Radiation Therapy - Nursing Note (Consult) PATIENT NAME: Salo Nagy PATIENT August 09, 2024 [facility] FACILITY/LOCATION: [place] Chief Complaint: consult Reason for visit: Consult. Referring physician: Internal provider Dr Guy Subjective Data: no complaints Additional Data Do you want to see a Die Cutting Machine Operator? No Are you interested in information about fertility? No Status: Patient is male Stress Scale: On a scale of 0 to 10, what number best describes how much distress you have experienced in the past week?(0 being no distress and 10 being extreme distress) 1 Social work notified: no SIGNED by: MANJINDER Iverson Daesung, MD 08/10/2024 11:50 AM Signed Radiation Oncology - New Patient/Consult Note PATIENT NAME: Salo Nagy PATIENT REQUESTING PROVIDER: Dr. Luis Miguel Guy DIAGNOSIS: Metastatic prostate cancer with bone metastasis. HPI: 74 year old male who presents with above diagnosis, for an opinion regarding the role of radiation therapy in the management of the patient's disease. Final recommendations will be communicated back to the requesting physician by way of the shared medical record, or letter to requesting physician via US mail. 74 year old man who was diagnosed with metastatic prostate cancer in 2018 when he presented with back pain and PSA >3000 at that time. Prostate biopsy on 07/28/18 showed prostate adenocarcinoma with Denny score 7 (4+3). Bone scan on 06/24/19 showed widespread lesions in the bone suspicious for metastatic disease. He was started on ADT with lupron and zytiga after casodex blockade. He had biochemical progression in 2022 and was started on xtandi. PSA started to increase a year ago and most recent PSA was 24.91 on 06/23/24. It increased from 0.72 on 12/23/22. PET/CT scan on 07/28/24 showed diffuse sclerotic osseous metastasis with 2 lesions demonstrating intense PSMA expression in the right sacral ala, SUV max 79, and the right posterior acetabulum, SUV max 56.2. He had pain in the right pelvis. ALLERGIES No Known Allergies Current Outpatient Medications on File Prior to Visit Medication Sig atorvastatin (LIPITOR) 40 mg tablet Take 40 mg by mouth once daily. clopidogrel (PLAVIX) 75 mg tablet Take 75 mg by mouth once daily. famotidine (PEPCID) 20 mg tablet Take 20 mg by mouth two times a day. acetaminophen (TYLENOL EXTRA STRENGTH) 500 mg tablet Take 500 mg by mouth every 8 hours as needed. tamsulosin (FLOMAX) 0.4 mg Take 1 capsule by mouth once daily enzalutamide (XTANDI) 40 mg capsule Take 4 capsules (160mg) by mouth once daily. goskxofffzp-gshejnnoy-zudg nter (TRELEGY ELLIPTA) 200-62.5-25 mcg inhalation powder Inhale 1 Puff as instructed once daily. B-complex with vitamin C (SUPER B COMPLEX-VITAMIN C ORAL) Take 1 tablet by mouth once daily. triamcinolone acetonide (NASACORT AQ) 55 mcg nasal inhaler Use 2 Sprays in each nostril once daily. aspirin, enteric coated (ASPIRIN, ENTERIC COATED) 81 mg EC tablet Take 1 tablet by mouth once daily. metoprolol tartrate, short acting, (LOPRESSOR) 25 mg tablet TAKE 1/2 (ONE-HALF) TABLET BY MOUTH TWICE DAILY calcium carbonate-vitamin D3 (OSCAL+D) 500 mg(1,250mg) -400 unit chewable tablet Take 1 tablet by mouth once daily. pantoprazole DR (PROTONIX) 40 mg tablet Take 40 mg by mouth once daily. (Patient not taking: Reported on 07/02/2024) hydroCHLOROthiazide (HYDRODIURIL, ESIDRIX) 12.5 mg tablet Take 12.5 mg by mouth once daily. (Patient not taking: Reported on 03/18/2023) iv contrast (will be provided with radiology test) CT Chest W -Inject, intravenously, once for 1 dose.No IV access, insert saline lock prior to the beginning of sedation, infusion, injection of imaging exam. Discontinue saline lock post exam. If Pt. has a central line or IVAD, may access for administration according to line specific nursing protocol. Once exam is complete flush line and de-access according to line specific nursing protocol in the CT contrast administration guidelines link. docusate sodium (COLACE) 100 mg capsule Take 1 capsule by mouth twice daily as needed. (Patient not taking: Reported on 07/02/2024) rosuvastatin (CRESTOR) 5 mg tablet Take 5 mg by mouth once daily. (Patient not taking: Reported on 07/02/2024) ramipril (ALTACE) 10 mg capsule Take 10 mg by mouth once daily. (Patient not taking: Reported on 07/02/2024) No current facility-administered medications on file prior to visit. PAST MEDICAL HISTORY Diagnosis (more content not included)... Normal [facility] CNOVSPon 08-06-2024 CNOVSP Visit (SP) Office (H EMAWS) -- SALO NAGY ([id number]) 1950 M Date Time Provider Department 08/06/24 8:30 AM LUIS MIGUEL GUY During your visit today, we recorded the following information about you: Temperature Pulse Blood pressure Weight 97.2 degrees 71/minute 131/80 96.8 kg Luis Miguel Guy MD 08/06/2024 12:45 PM Signed (Elements copied from my note dated July 02, 2024, have been reviewed and updated where appropriate, and all reflect current assessment and medical decision making from today's encounter, August 06, 2024) HISTORY OF PRESENT ILLNESS: Salo Nagy is a 72 year old male dx prostate cancer 2018 on basis of back pain found bone lesions, PSA >3000 at that time. Prostate biopsy at that time showed adenocarcinoma. Started lupron and zytiga after casodex blockade. PSA responded well, PSA tripled in fall of 2022 Switched to xtandi, delay in starting due to obtaining med. Guardant was negative for actionable mutation. PSA, rising, DT < 3 months Recent open heart surgery for CABG, slowly recovering with cardiac rehab. Here for follow up, PSMA PET 07-27-24, diffuse sclerotic lesions but 2 intensely avid lesions of pelvis. Reviewed with Dr Pearson, agrees RT to pelvis lesions is reasonable CLINICAL IMPRESSION: Prostate cancer metastatic to bone. Prior bone scan (2019) noted diffuse lesions, but PSMA shows 2 intensely avid pelvis lesions. PSA climbing rate increased, oligometastatic lesions (at least likely more contributory to PSA increase) RECOMMENDATION/PLAN: 1. continue lupron enzalutamide. 2. RT to pelvis lesions 3. Follow PSA Written and verbal health teaching given to patient, patient verbalizes understanding and agrees with treatment plan. PAST MEDICAL HISTORY Diagnosis Date Aneurysm of infrarenal abdominal aorta Bone metastases 07/24/2018 CVA (cerebral vascular accident) (HCC) 09/07/2018 Elevated LFTs 04/15/2022 Essential hypertension 09/07/2018 History of CVA (cerebrovascular accident) Malignant neoplasm of prostate (HCC) 07/10/2018 Panlobular emphysema (HCC) 09/07/2018 PAST SURGICAL HISTORY Procedure Laterality Date CYSTOSCOPY 01/09/2018 TRURL ELECTROSURG RESCJ PROSTATE BLEED COMPLETE FAMILY HISTORY Problem Relation Age of Onset Thyroid Mother Breast Cancer Mother Heart Father Heart Brother Aneurysm No Family History Social History Tobacco Use Smoking status: Former Current packs/day: 0.00 Average packs/day: 1 pack/day for 45.0 years (45.0 ttl pk-yrs) Types: Cigarettes Start date: 04/18/1974 Quit date: 04/18/2019 Years since quittin.3 Smokeless tobacco: Never Vaping Use Vaping status: Never Used Substance Use Topics Alcohol use: Never Drug use: Never ALLERGIES: ALLERGIES No Known Allergies CURRENT OUTPATIENT MEDICATIONS: atorvastatin (LIPITOR) 40 mg tablet Take 40 mg by mouth once daily. clopidogrel (PLAVIX) 75 mg tablet Take 75 mg by mouth once daily. famotidine (PEPCID) 20 mg tablet Take 20 mg by mouth two times a day. acetaminophen (TYLENOL EXTRA STRENGTH) 500 mg tablet Take 500 mg by mouth every 8 hours as needed. tamsulosin (FLOMAX) 0.4 mg Take 1 capsule by mouth once daily enzalutamide (XTANDI) 40 mg capsule Take 4 capsules (160mg) by mouth once daily. vilgxcifjdv-zrwirvkji-bnqy nter (TRELEGY ELLIPTA) 200-62.5-25 mcg inhalation powder Inhale 1 Puff as instructed once daily. B-complex with vitamin C (SUPER B COMPLEX-VITAMIN C ORAL) Take 1 tablet by mouth once daily. triamcinolone acetonide (NASACORT AQ) 55 mcg nasal inhaler Use 2 Sprays in each nostril once daily. aspirin, enteric coated (ASPIRIN, ENTERIC COATED) 81 mg EC tablet Take 1 tablet by mouth once daily. metoprolol tartrate, short acting, (LOPRESSOR) 25 mg tablet TAKE 1/2 (ONE-HALF) TABLET BY MOUTH TWICE DAILY calcium carbonate-vitamin D3 (OSCAL+D) 500 mg(1,250mg) -400 unit chewable tablet Take 1 tablet by mouth once daily. pantoprazole DR (PROTONIX) 40 mg tablet Take 40 mg by mouth once daily. (Patient not taking: Reported on 07/02/2024) hydroCHLOROthiazide (HYDRODIURIL, ESIDRIX) 12.5 mg tablet Take 12.5 mg by mouth once daily. (Patient not taking: Reported on 03/18/2023) iv contrast (will be provided with radiology test) CT Chest W -Inject, intravenously, once for 1 dose.No IV access, insert saline lock prior to the beginning of sedation, infusion, injection of imaging exam. Discontinue saline lock post exam. If Pt. has a central line or IVAD, may access for administration according to line specific nursing protocol. Once exam is complete flush line and de-access according to line specific nursing protocol in the CT contrast administration guidelines link. docusate sodium (COLACE) 100 mg capsule Take 1 capsule by mouth twice daily as needed. (Patient not taking: Reported on 07/02/2024) rosuvastatin (CRESTOR) 5 mg tablet Take 5 mg by mouth once da (more content not included)... Normal [facility] PET/CT PROSTATE WBon 07-09 AL PET/CT PROSTATE WB * * *Final Report* * * DATE OF EXAM: Jul 27 2024 12:25PM [facility] 0093 - [place] PET/CT PROSTATE WB / PROCEDURE REASON: multiple diagnoses * * * * Physician Interpretation * * * * EXAMINATION: PROSTATE-SPECIFIC MEMBRANE ANTIGEN PET-CT CLINICAL HISTORY: History of prostate cancer with rising PSA being evaluated for recurrence. * Prostate Cancer Grade: Not available * PSA: 24.9 ng/mL 06/23/2024 * Previous Therapy: ADT EXAM CATEGORY: Subsequent treatment strategy. TECHNIQUE: Radiopharmaceutical was administered intravenously followed later on by PET imaging from the skull vertex to thighs. Free breathing, low dose CT of the same body region was acquired without IV contrast for attenuation correction and anatomic localization. Unenhanced imaging is limited for the evaluation of some pathology and the acquired CT was not designed to produce diagnostic CT scan quality. Physiologic/non-pathologic uptake in some body regions could confound or obscure some pathology. * CT Dose-Length Product (DLP): 446 mGy*cm * CT Dose Reduction Employed: Yes * Injection site: Right Forearm-Antecubital * Injected activity: 8.8 mCi * Uptake Time: 119 minutes * Radiopharmaceutical: F-18 PSMA (Posluma) COMPARISON: No previous PSMA PET/CT available CORRELATION: Bone scan 820, CT chest 03/06/2022 CT angiography abdomen and pelvis 12/04/2020. RESULT: REFERENCES: Uptake by the injected radiopharmaceutical serves as a surrogate marker for prostate-specific membrane antigen (PSMA) expression. All reported standardized uptake values represent maximum SUV (SUVmax) per body weight, unless otherwise specified. SUV Reference Values: * Background Salivary Gland: SUVmax 22.3 * Blood Pool (Descending Aorta): SUVmax 2.2 * Background Liver: SUVmax 5.7 Localizer Images: Unremarkable. HEAD AND NECK: Head: No radiotracer avid lesion or mass effect in the intracranial compartment. Aerodigestive Tract: No radiotracer avid lesion. Lymph Nodes: No radiotracer avid lymphadenopathy. Neck Soft Tissues: No radiotracer avid thyroid nodule. CHEST: Lungs and Pleura: Centrilobular emphysema. Linear opacity in the left lower lobe, likely atelectasis versus scarring. No radiotracer avid mass, nodule, or consolidation. No pleural effusion. Lymph Nodes: No radiotracer avid lymphadenopathy. Mediastinum: No radiotracer avid mass. Cardiovascular: Blood pool activity. No pericardial effusion. Thoracic aortic and coronary artery calcifications. Status post CABG. Prosthetic mitral valve. Chest Wall: No radiotracer avid soft tissue lesion. Postsurgical changes of median sternotomy with low level uptake about the median sternotomy wires, likely reactive. ABDOMEN AND PELVIS: Hepatobiliary: No radiotracer avid lesion. No measurable mass. Spleen: No radiotracer avid lesion. No splenomegaly. Pancreas: No radiotracer avid lesion. Adrenals: No radiotracer avid nodule. Urinary Tract: Physiologic radiotracer excretion in the urinary tract. No hydronephrosis. GI Tract: No radiotracer avid lesion. No bowel dilation. Colonic diverticulosis. Peritoneum: No radiotracer avid lesion. No ascites. Lymph Nodes: * Abdomen (including common iliac): No radiotracer avid lymphadenopathy. * Pelvis (below common iliac): No radiotracer avid lymphadenopathy. Vasculature: Blood pool activity. A bifurcated stent is noted extending from the infrarenal aorta into the bilateral common iliac arteries. Extensive vascular calcifications again noted. An infrarenal abdominal aortic aneurysm again noted measuring up to 3.4 x 3.5 cm (AP by TV) which is unchanged. Prostate and Seminal Vesicles: No radiotracer avid lesion. Note, excreted activity in the urinary bladder degrades evaluation. Pelvis Soft Tissues: No radiotracer avid lesion. MUSCULOSKELETAL: Bones: Extensive sclerotic osseous metastasis throughout the visualized osseous structures with low level radiotracer uptake in these lesions (for example SUV max 3.4 and L4 vertebral body). There are however 2 lesions that show intense radiotracer uptake: * Right sacral ala, by the sacroiliac joint, extending into the posterior right iliac bone (SUV max 79.0) * Right posterior acetabular column, SUV max 56.2) Soft Tissues: No radiotracer avid lesion. Fat-containing umbilical hernia. IMPRESSION: PROSTATE: * No PSMA expressing prostate lesion. LUI DISEASE: * No PSMA expressing pelvic lymphadenopathy. METASTATIC DISEASE: * Diffuse sclerotic osseous metastasis with 2 lesions demonstrating intense PSMA expression in the right sacral ala and the right posterior acetabulum, as detailed. Guide Foreign Tour: LUIS EDUARDO Transcribe Date/Time: Jul 28 2024 8:37A Dictated by : CHRISTINA DUFF MD This examination was interpreted and the report reviewed and electronically signed by: SHARON FORBES MD on Jul 28 2024 11:31AM EST [id number] [facility] CNOVSPon 07-02-2024 CNOVSP Visit (SP) Office (H EMAWS) -- SALO NAGY ([id number]) 1950 M Date Time Provider Department 07/02/24 11:50 AM LUIS MIGUEL GUY During your visit today, we recorded the following information about you: Temperature Pulse Blood pressure Weight 97.7 degrees 72/minute 136/83 94.3 kg Luis Miguel Guy MD 07/02/2024 12:47 PM Signed (Elements copied from my note dated February 18, 2024, have been reviewed and updated where appropriate, and all reflect current assessment and medical decision making from today's encounter, July 02, 2024) HISTORY OF PRESENT ILLNESS: Salo Nagy is a 72 year old male dx prostate cancer 2018 on basis of back pain found bone lesions, PSA >3000 at that time. Prostate biopsy at that time showed adenocarcinoma. Started lupron and zytiga after casodex blockade. PSA responded well, PSA tripled in fall of 2022 Switched to xtandi, delay in starting due to obtaining med. Guardant was negative for actionable mutation. Here for follow up, reviewed PSA, rising, DT < 3 months Recent open heart surgery for CABG, slowly recovering with cardiac rehab. Reviewed recent PSA. l. CLINICAL IMPRESSION: Prostate cancer metastatic to bone. PSA climbing rate increased, RECOMMENDATION/PLAN: 1. continue enzalutamide. Plan taxotere if PSA DT persists less than 3 months on xtandi. Info given previously. Continuing lupron and zometa. 2. PSMA PET. Information given re taxotere, will re convene after PET. Continue xtandi for now. Written and verbal health teaching given to patient, patient verbalizes understanding and agrees with treatment plan. PAST MEDICAL HISTORY Diagnosis Date Aneurysm of infrarenal abdominal aorta Bone metastases 07/24/2018 CVA (cerebral vascular accident) (HCC) 09/07/2018 Elevated LFTs 04/15/2022 Essential hypertension 09/07/2018 History of CVA (cerebrovascular accident) Malignant neoplasm of prostate (HCC) 07/10/2018 Panlobular emphysema (HCC) 09/07/2018 PAST SURGICAL HISTORY Procedure Laterality Date CYSTOSCOPY 01/09/2018 TRURL ELECTROSURG RESCJ PROSTATE BLEED COMPLETE FAMILY HISTORY Problem Relation Age of Onset Thyroid Mother Breast Cancer Mother Heart Father Heart Brother Aneurysm No Family History Social History Tobacco Use Smoking status: Former Current packs/day: 0.00 Average packs/day: 1 pack/day for 45.0 years (45.0 ttl pk-yrs) Types: Cigarettes Start date: 04/18/1974 Quit date: 04/18/2019 Years since quittin.2 Smokeless tobacco: Never Vaping Use Vaping status: Never Used Substance Use Topics Alcohol use: Never Drug use: Never ALLERGIES: ALLERGIES No Known Allergies CURRENT OUTPATIENT MEDICATIONS: atorvastatin (LIPITOR) 40 mg tablet Take 40 mg by mouth once daily. famotidine (PEPCID) 20 mg tablet Take 20 mg by mouth two times a day. acetaminophen (TYLENOL EXTRA STRENGTH) 500 mg tablet Take 500 mg by mouth every 8 hours as needed. tamsulosin (FLOMAX) 0.4 mg Take 1 capsule by mouth once daily enzalutamide (XTANDI) 40 mg Take 4 capsules (160mg) by mouth once daily. ykkbkjzgztu-kikrcobdo-khxa nter (TRELEGY ELLIPTA) 200-62.5-25 mcg inhalation powder Inhale 1 Puff as instructed once daily. B-complex with vitamin C (SUPER B COMPLEX-VITAMIN C ORAL) Take 1 tablet by mouth once daily. triamcinolone acetonide (NASACORT AQ) 55 mcg nasal inhaler Use 2 Sprays in each nostril once daily. aspirin, enteric coated (ASPIRIN, ENTERIC COATED) 81 mg EC tablet Take 1 tablet by mouth once daily. metoprolol tartrate, short acting, (LOPRESSOR) 25 mg tablet TAKE 1/2 (ONE-HALF) TABLET BY MOUTH TWICE DAILY calcium carbonate-vitamin D3 (OSCAL+D) 500 mg(1,250mg) -400 unit chewable tablet Take 1 tablet by mouth once daily. clopidogrel (PLAVIX) 75 mg tablet Take 75 mg by mouth once daily. pantoprazole DR (PROTONIX) 40 mg tablet Take 40 mg by mouth once daily. (Patient not taking: Reported on 07/02/2024) hydroCHLOROthiazide (HYDRODIURIL, ESIDRIX) 12.5 mg tablet Take 12.5 mg by mouth once daily. (Patient not taking: Reported on 03/18/2023) iv contrast (will be provided with radiology test) CT Chest W -Inject, intravenously, once for 1 dose.No IV access, insert saline lock prior to the beginning of sedation, infusion, injection of imaging exam. Discontinue saline lock post exam. If Pt. has a central line or IVAD, may access for administration according to line specific nursing protocol. Once exam is complete flush line and de-access according to line specific nursing protocol in the CT contrast administration guidelines link. docusate sodium (COLACE) 100 mg capsule Take 1 capsule by mouth twice daily as needed. (Patient not taking: Reported on 07/02/2024) rosuvastatin (CRESTOR) 5 mg tablet Take 5 mg by mouth once daily. (Patient not taking: Reported on 07/02/2024) ramipril (ALTACE) 10 mg capsule Take 10 mg by mouth once daily. (Patient no (more content not included)... Normal [facility] Comprehensive metabolic 2000 panelon 06-23-2024 Albumin [Mass/Vol] 3.9 g/dL Normal 3.9-4.9 [facility] Comment on above: Order Comment: Speci men Type: BLOOD SPECIMENOrdering Facility: [facility] Address: [address] [place] [address] Performed By: #### 2 4323-8 ####[facility] [id number] [place] [address] [place] ALP [Catalytic activity/Vol] 108 U/L Normal 38-113 [facility] Comment on above: Order Comment: Speci men Type: BLOOD SPECIMENOrdering Facility: [facility] Address: [address] [place] [address] Performed By: #### 2 4323-8 ####[facility] [id number] [place] [address] [place] ALT [Catalytic activity/Vol] 7 U/L Low 10-54 [facility] Comment on above: Order Comment: Speci men Type: BLOOD SPECIMENOrdering Facility: [facility] Address: [address] [place] [address] Performed By: #### 2 4323-8 ####[facility] [id number] [place] [id number] [place] Anion gap [Moles/Vol] 11 mmol/L Normal 8-15 [facility] Comment on above: Order Comment: Speci men Type: BLOOD SPECIMENOrdering Facility: [facility] Address: [address] [place] [address] Performed By: #### 2 4323-8 ####[facility] [id number] [place] [address] [place] AST [Catalytic activity/Vol] 13 U/L Low 14-40 [facility] Comment on above: Order Comment: Speci men Type: BLOOD SPECIMENOrdering Facility: [facility] Address: [address] [place] [address] Performed By: #### 2 4323-8 ####[facility] [id number] [place] [address] [place] Bilirubin [Mass/Vol] 0.3 mg/dL Normal 0.2-1.3 [facility] Comment on above: Order Comment: Speci men Type: BLOOD SPECIMENOrdering Facility: [facility] Address: [address] [place] [address] Performed By: #### 2 4323-8 ####[facility] [id number] [place] [address] [place] Calcium [Mass/Vol] 10.0 mg/dL Normal 8.5-10.2 [facility] Comment on above: Order Comment: Speci men Type: BLOOD SPECIMENOrdering Facility: [facility] Address: [address] [place] [address] Performed By: #### 2 4323-8 ####[facility] [id number] [place] [address] [place] Chloride [Moles/Vol] 102 mmol/L Normal 98-107 [facility] Comment on above: Order Comment: Speci men Type: BLOOD SPECIMENOrdering Facility: [facility] Address: [address] [place] [address] Performed By: #### 2 4323-8 ####[facility] [id number] [place] [address] [place] CO2 [Moles/Vol] 24 mmol/L Normal 22-30 [facility] Comment on above: Order Comment: Speci men Type: BLOOD SPECIMENOrdering Facility: [facility] Address: [address] [place] [address] Performed By: #### 2 4323-8 ####[facility] [id number] [place] [address] [place] Creatinine [Mass/Vol] 1.15 mg/dL Normal 0.73-1.22 [facility] Comment on above: Order Comment: Speci men Type: BLOOD SPECIMENOrdering Facility: [facility] Address: [address] [place] [address] Performed By: #### 2 4323-8 ####[facility] [id number] [address] OF [facility] Creatinine and Glomerular filtration rate.predicted panel (S/P/Bld) 67 mL/min/1.73m??? Normal >=60 [facility] Comment on above: Order Comment: Speci men Type: BLOOD SPECIMENOrdering Facility: [facility] Address: [address] [place] [address] Result Comment: Grisel mated Glomerular Filtration Rate (eGFR) is calculated using the 2020 CKD-EPI creatinine equation. This equation utilizes serum creatinine, sex, and age as parameters. The creatinine assay has traceable calibration to isotope dilution-mass spectrometry. Refer to KDIGO guidelines for clinical interpretation. In patients with unstable renal function, e.g. those with acute kidney injury, the eGFR may not accurately reflect actual GFR. Performed By: #### 2 4323-8 ####[facility] [id number] [place] [address] [place] Glucose [Mass/Vol] 107 mg/dL High 74-99 [facility] Comment on above: Order Comment: Speci men Type: BLOOD SPECIMENOrdering Facility: [facility] Address: [address] [place] [address] Result Comment: The [place] Diabetes Association (ADA) provides guidance for cutoff values for fasting glucose and random glucose. The ADA defines fasting as no caloric intake for at least 8 hours. Fasting plasma glucose results between 100 to 125 mg/dL indicate increased risk for diabetes (prediabetes). Fasting plasma glucose results greater than or equal to 126 mg/dL meet the criteria for diagnosis of diabetes. In the absence of unequivocal hyperglycemia, results should be confirmed by repeat testing. In a patient with classic symptoms of hyperglycemia or hyperglycemic crisis, random plasma glucose results greater than or equal to 200 mg/dL meet the criteria for diagnosis of diabetes. Reference: Standards of Medical Care in Diabetes 2016, [place] [employer] Association. Diabetes Care. 2016.39(Suppl 1). Performed By: #### 2 4323-8 ####[facility] MILLTOWNCLIA [id number] [place] [address] [place] Potassium [Moles/Vol] 4.3 mmol/L Normal 3.7-5.1 [facility] Comment on above: Order Comment: Speci men Type: BLOOD SPECIMENOrdering Facility: [facility] Address: [address] [place] [address] Performed By: #### 2 4323-8 ####[facility] H[facility]ITALWNCLIA [id number] [place] [address] [place] Protein [Mass/Vol] 7.2 g/dL Normal 6.3-8.0 [facility] Comment on above: Order Comment: Speci men Type: BLOOD SPECIMENOrdering Facility: [facility] Address: [address] [place], [place] [address] Performed By: #### 2 4323-8 ####[facility] HOSPITALWBOLALIA [id number] [place] [address] [place] Sodium [Moles/Vol] 137 mmol/L Normal 136-144 [facility] Comment on above: Order Comment: Speci men Type: BLOOD SPECIMENOrdering Facility: [facility] Address: [address] [place] [address] Performed By: #### 2 4323-8 ####[facility] [id number] [place] [address] [place] Urea nitrogen [Mass/Vol] 19 mg/dL Normal 9-24 [facility] Comment on above: Order Comment: Speci men Type: BLOOD SPECIMENOrdering Facility: [facility] Address: [address] [place] [address] Performed By: #### 2 4323-8 ####[facility] [id number] [place] [address] [place] PSA [facility] Prostate specific Ag [Mass/Vol] 24.91 ng/mL High <2.60 [facility] Comment on above: Order Comment: Speci men Type: BLOOD SPECIMENOrdering Facility: [facility] Address: [address] [place] [address] Result Comment: Tota l PSA test methodology used is the Electrochemiluminescence Immunoassay by [employer]. Total PSA values by differing methodologies cannot be interchanged. For an individual patient, the significance of a PSA level should be interpreted in a broad clinical context, including age, race, family history, digital rectal exam, prostate size, results of prior testing (prostate biopsy, free PSA, PCA3), and use of 5-alpha reductase inhibitors. Considering the high incidence of asymptomatic cancer in the general population that may not pose an ultimate risk to a patient, the decision to recommend urological evaluation or prostate biopsy should be individualized after consideration of all these factors. REFERENCE: Joaquin Rey M.D., M.P.H., Pepe Shen M.D., Ph.D., Samuel Woods M.D., Raysa Johnson, M.P.H., Faith Pepper Sc.D. Effect of Verification Bias on Screening for Prostate Cancer by Measurement of Prostatic Specific Antigen. N Engl J Med 2003,349:335-42. Performed By: #### 2 857-1 ####[facility] LABCLIA [id number] [address] [place] .GFRon 06-02-2024 Estimated Glomerular Filtration Rate 44 ml/min/1.73sqm Normal [facility] Comment on above: Result Comment: Stages of Chronic Kidney Disease (CKD) Stage Description eGFR(ml/min/1.73 sq.m.) CKD 1 Normal kidney function or >=90 normal kindney function with possible kidney damage (ex. Proteinuria) CKD 2 Kidney damage with mild loss 60-89 of kidney function CKD 3a Mild to moderate loss of kidney 45-59 function CKD 3b Moderate to severe loss of 30-44 of kindey function CKD 4 Severe loss of kidney function 15-29 CKD 5 Kidney failure <15 Note: (go live 2024) the eGFR calculation was updated to the 2020 CKD-EPI creatinine equation without a race factor to calculate the eGFR results. Performed By: #### P SA, ADIFF, ANEU, GFR, LIPID, VIDH, CMP, CBC #### [address] [address] #### PTH #### [address] [address] BMPon 06-02-2024 BUN/Creatinine Ratio 10 ratio Normal 7-27 [facility] Comment on above: Performed By: #### P SA, ADIFF, ANEU, GFR, LIPID, VIDH, CMP, CBC #### [address] [address] #### PTH #### [address] [address] Calcium [Mass/Vol] 9.9 mg/dL Normal 8.4-10.2 [facility] Comment on above: Performed By: #### P SA, ADIFF, ANEU, GFR, LIPID, VIDH, CMP, CBC #### [address] [address] #### PTH #### [address] [address] Chloride [Moles/Vol] 98 mmol/L Normal 98-107 [facility] Comment on above: Performed By: #### P SA, ADIFF, ANEU, GFR, LIPID, VIDH, CMP, CBC #### [address] [address] #### PTH #### [address] [address] CO2 [Moles/Vol] 26 mmol/L Normal 23-31 [facility] Comment on above: Performed By: #### P SA, ADIFF, ANEU, GFR, LIPID, VIDH, CMP, CBC #### [address] [address] #### PTH #### [address] [address] Creatinine [Mass/Vol] 1.63 mg/dL High 0.70-1.30 [facility] Comment on above: Result Comment: Test ing performed on Siemens Dimension EXL analyzer using a modified kinetic Dm technique. Performed By: #### P SA, ADIFF, ANEU, GFR, LIPID, VIDH, CMP, CBC #### [address] [address] #### PTH #### [place] [address] Electrolyte Balance 10.0 mEq/L Normal 4.0-15.0 [facility] Comment on above: Performed By: #### P SA, ADIFF, ANEU, GFR, LIPID, VIDH, CMP, CBC #### [address] [address] #### PTH #### [address] [address] Glucose [Mass/Vol] 137 mg/dL High 83-110 [facility] Comment on above: Performed By: #### P SA, ADIFF, ANEU, GFR, LIPID, VIDH, CMP, CBC #### [address] [address] #### PTH #### [address] [address] Potassium [Moles/Vol] 4.3 mmol/L Normal 3.5-5.1 [facility] Comment on above: Performed By: #### P SA, ADIFF, ANEU, GFR, LIPID, VIDH, CMP, CBC #### [address] [address] #### PTH #### [place] [address] Sodium [Moles/Vol] 134 mmol/L Low 136-145 [facility] Comment on above: Performed By: #### P SA, ADIFF, ANEU, GFR, LIPID, VIDH, CMP, CBC #### [address] [address] #### PTH #### [place] [address] Urea nitrogen [Mass/Vol] 17 mg/dL Normal 7-18 [facility] Comment on above: Performed By: #### P SA, ADIFF, ANEU, GFR, LIPID, VIDH, CMP, CBC #### [address] [address] #### PTH #### [place] [address] XR CHEST 2 VIEWSon XR CHEST 2 VIEWS Normal [facility] .GFRon 05-27-2024 Estimated Glomerular Filtration Rate 61 ml/min/1.73sqm Normal [facility] Comment on above: Result Comment: Stag es of Chronic Kidney Disease (CKD)Stage Description eGFR(ml/min/1.73 sq.m.)CKD 1 Normal kidney function or >=90 normal kindney function with possible kidney damage (ex. Proteinuria)CKD 2 Kidney damage with mild loss 60-89 of kidney functionCKD 3a Mild to moderate loss of kidney 45-59 functionCKD 3b Moderate to severe loss of 30-44 of kindey function CKD 4 Severe loss of kidney function 15-29CKD 5 Kidney failure <15Note: (go live 2024) the eGFR calculation was updated to the KD-EPI creatinine equation without a race factor to calculate theeGFR results. Performed By: #### B MP, GFR ####[address] [address] BMPon 05-27-2024 BUN/Creatinine Ratio 12.0 ratio Normal 10.0-22.0 [facility] Comment on above: Performed By: #### B MP, GFR ####[address] [address] Calcium [Mass/Vol] 9.8 mg/dL Normal 8.7-10.4 [facility] Comment on above: Performed By: #### B MP, GFR ####[place] [address] Chloride [Moles/Vol] 103 mmol/L Normal 98-110 [facility] Comment on above: Performed By: #### B MP, GFR ####[place] [id number] CO2 [Moles/Vol] 26 mmol/L Normal 22-32 [facility] Comment on above: Performed By: #### B MP, GFR ####[place] [address] Creatinine [Mass/Vol] 1.25 mg/dL Normal 0.60-1.40 [facility] Comment on above: Result Comment: Test ing performed on [employer] analyzer using enzymatic creatinine methodology. Performed By: #### B MP, GFR ####[place] [address] Electrolyte Balance 9.0 mEq/L Normal 4.0-15.0 [facility] Comment on above: Performed By: #### B MP, GFR ####[place] [id number] Glucose [Mass/Vol] 105 mg/dL Normal 82-115 [facility] Comment on above: Performed By: #### B MP, GFR ####[place] [id number] Potassium [Moles/Vol] 4.1 mmol/L Normal 3.5-5.0 [facility] Comment on above: Performed By: #### B MP, GFR ####[facility] [place] [address] Sodium [Moles/Vol] 138 mmol/L Normal 136-145 [facility] Comment on above: Performed By: #### B MP, GFR ####[facility] [place] [address] Urea nitrogen [Mass/Vol] 15.0 mg/dL Normal 8.0-22.0 [facility] Comment on above: Performed By: #### B MP, GFR ####[facility] [place] [address] LABORATORYOrdered By: SYSTEM SYSTEM on 05-27-2024 Calcium [Mass/Vol] 9.8 mg/dL Normal 8.7 - 10. 4 mg/dL ADM SS Chloride [Moles/Vol] 103 mmol/L Normal 98 - 11 0 mEq/L AH ADM SS CO2 [Moles/Vol] 26 mmol/L Normal 22 - 32 mEq/L AH ADM SS Creatinine [Mass/Vol] 1.25 mg/dL Normal 0.60 - 1.40 mg/dL ADM SS Comment on above: Interpretive Data: T esting performed on [employer] analyzer using enzymatic creatinine methodology. Electrolyte Balance 9.0 mEq/L Normal 4.0 - 15 .0 mEq/L AH ADM SS Estimated Glomerular Filtration Rate 61 ml/min/1.73sqm Invalid Interpretation Code Chemistry S Comment on above: Interpretive Data: Stages of Chronic Kidney Disease (CKD) Stage Description eGFR(ml/min/1.73 sq.m.) CKD 1 Normal kidney function or >=90 normal kindney function with possible kidney damage (ex. Proteinuria) CKD 2 Kidney damage with mild loss 60-89 of kidney function CKD 3a Mild to moderate loss of kidney 45-59 function CKD 3b Moderate to severe loss of 30-44 of kindey function CKD 4 Severe loss of kidney function 15-29 CKD 5 Kidney failure <15 Note: (go live 2024) the eGFR calculation was updated to the 2020 CKD-EPI creatinine equation without a race factor to calculate the eGFR results. Glucose [Mass/Vol] 105 mg/dL Normal 82 - 115 mg/dL AH ADM SS Potassium [Moles/Vol] 4.1 mmol/L Normal 3.5 - 5.0 mEq/L ADM SS Sodium [Moles/Vol] 138 mmol/L Normal 136 - 145 mEq/L AH ADM SS Urea nitrogen [Mass/Vol] 15.0 mg/dL Normal 8.0 - 22.0 mg/dL AH ADM SS Urea nitrogen/Creatinine [Mass ratio] 12.0 ratio Normal 10.0 - 22.0 ratio AH ADM SS BMP with eGFRon 05-17-2024 AGE 74 years Normal [facility] Comment on above: Performed By: #### 2 29579 #### [facility],[address] [place] [address] Anion gap [Moles/Vol] 14 mmol/L Normal 10 - 20 [facility] Comment on above: Performed By: #### 2 59027 #### [facility],[address] [place] [address] BMP with eGFR Normal [facility] Comment on above: Result Comment: BASI C METABOLIC PANEL Performed By: #### 2 02026 #### [facility],[address] [place] [address] Calcium [Mass/Vol] 9.0 mg/dL Normal 8.5 - 10.1 [facility] Comment on above: Performed By: #### 2 43460 #### [facility],[address] [place] [address] Chloride [Moles/Vol] 102 mmol/L Normal 98 - 107 [facility] Comment on above: Performed By: #### 2 96705 #### [facility],[address] [place] [address] CO2 [Moles/Vol] 25.8 mmol/L Normal 21.0 - 32.0 [facility] Comment on above: Performed By: #### 2 76951 #### [facility],[address] [place] [address] Creatinine [Mass/Vol] 1.47 mg/dL High 0.70 - 1.30 [facility] Comment on above: Performed By: #### 2 52338 #### [facility],[address] [place] [address] eGFR 47 ML/MINUTE Low 60 - 999 [facility] Comment on above: Performed By: #### 2 73145 #### [facility],[address] [place] [address] eGFR(AA) 57 ML/MINUTE Low 60 - 999 [facility] Comment on above: Result Comment: ACCO RDING TO THE NATIONAL KIDNEY DISEASE EDUCATION PROGRAM(NKDE), A NORMAL eGFR IS A VALUE GREATER THAN OR EQUAL TO 60 ML/MIN/1.73 SQ METERS. CHRONIC KIDNEY DISEASE: <60mL/MIN/1.73 SQ METERS KIDNEY FAILURE: <15mL/MIN/1.73 SQ METERS THIS TEST SHOULD ONLY BE USED FOR PATIENTS 18 YEARS OF AGE AND OLDER. Performed By: #### 2 09621 #### [facility],[address] [place] [address] Glucose [Mass/Vol] 105 mg/dL Normal 74 - 106 [facility] Comment on above: Performed By: #### 2 89268 #### [address] [address] Potassium [Moles/Vol] 4.0 mmol/L Normal 3.5 - 5.1 [facility] Comment on above: Performed By: #### 2 61871 #### [facility],[address] [place] [address] Sodium [Moles/Vol] 138 mmol/L Normal 136 - 145 [facility] Comment on above: Performed By: #### 2 44113 #### [address] [address] Urea nitrogen [Mass/Vol] 17 mg/dL Normal 7 - 18 [facility] Comment on above: Performed By: #### 2 80202 #### [address] [address] CBC + DIFFon 05-17-2024 Baso # 0.06 x10EE3/UL Normal 0.00 - 0.10 [facility] Comment on above: Performed By: #### 2 00299 #### [facility],[address] [place] [address] Basophils/100 WBC (Bld) 0.4 % Normal 0.0 - 2.0 [facility] Comment on above: Performed By: #### 2 37304 #### [facility],[address] [place] [address] CBC + DIFF Normal [facility] Comment on above: Result Comment: CBC- COMPLETE BLOOD COUNT Performed By: #### 2 49407 #### [facility],[address] [place] [address] EO # 0.52 x10EE3/UL High 0.00 - 0.50 [facility] Comment on above: Performed By: #### 2 67891 #### [facility],[address] [place], [place] [phone] Eosinophils/100 WBC (Bld) 3.6 % Normal 0.0 - 7.0 [facility] Comment on above: Performed By: #### 2 74294 #### [facility],[address] [place], [place] [phone] Erythrocyte distribution width (RBC) [Ratio] 14.1 % Normal 12.0 - 15.6 [facility] Comment on above: Performed By: #### 2 72585 #### [facility],[address] [place], [place] [phone] Hematocrit (Bld) [Volume fraction] 33.9 % Low 40.0 - 52.0 [facility] Comment on above: Performed By: #### 2 02687 #### [facility],[address] [place] [address] Hemoglobin (Bld) [Mass/Vol] 11.1 g/dL Low 13.0 - 17.5 [facility] Comment on above: Performed By: #### 2 07685 #### [facility],[address] [place] [address] Lymph # 2.67 x10EE3/UL Normal 0.80 - 2.80 [facility] Comment on above: Performed By: #### 2 64299 #### [facility],[address] [place] [address] Lymphocytes/100 WBC (Bld) 18.5 % Low 20.0 - 45.0 [facility] Comment on above: Performed By: #### 2 19315 #### [facility],[address] [place] [address] MANUAL DIFF N/A Normal [facility] Comment on above: Performed By: #### 2 58455 #### [facility],[address] [place] [address] MCH (RBC) [Entitic mass] 30 pg Normal 27 - 33 [facility] Comment on above: Performed By: #### 2 46197 #### [facility],[address] [place] [address] MCHC 33 X10 3 Normal 32 - 36 [facility] Comment on above: Performed By: #### 2 63936 #### [facility],[address] [place] [address] MCV (RBC) [Entitic vol] 92 fL Normal 81 - 98 [facility] Comment on above: Performed By: #### 2 25210 #### [facility],[address] [place] [address] [place] # 1.11 x10EE3/UL High 0.20 - 1.00 [facility] Comment on above: Performed By: #### 2 91132 #### [facility],[address] [place] [address] MONOS % 7.7 % Normal 0.0 - 10.0 [facility] Comment on above: Performed By: #### 2 36312 #### [facility],[address] [place] [address] Morphology Lenny (Bld) [Interp] N/A Normal [facility] Comment on above: Performed By: #### 2 46029 #### [facility],[address] [place] [address] Neut # 10.08 x10EE3/UL High 1.50 - 7.10 [facility] Comment on above: Performed By: #### 2 19442 #### [facility],[address] [place] [address] Neutrophils/100 WBC (Bld) 69.8 % Normal 46.0 - 76.0 [facility] Comment on above: Performed By: #### 2 39327 #### [facility],[address] [place] [address] PLATELET 419 x10EE3/UL Normal 150 - 450 [facility] Comment on above: Performed By: #### 2 67955 #### [facility],[address] [place] [address] Platelet mean volume (Bld) [Entitic vol] 8.4 fL Normal 6.4 - 10.5 [facility] Comment on above: Result Comment: AUTO MATED DIFFERENTIAL Performed By: #### 2 50345 #### [facility],[address] [place] [address] RBC 3.69 x 10EE6/UL Low 4.50 - 6.00 [facility] Comment on above: Performed By: #### 2 71234 #### [facility],[address] [place] [address] WBC 14.5 x 10EE3/UL High 4.5 - 10.8 [facility] Comment on above: Performed By: #### 2 13876 #### [facility],[address] [place] [address] .GFRon 05-13-2024 Estimated Glomerular Filtration Rate 53 ml/min/1.73sqm [facility] Comment on above: Result Comment: Stag es of Chronic Kidney Disease (CKD)Stage Description eGFR(ml/min/1.73 sq.m.)CKD 1 Normal kidney function or >=90 normal kindney function with possible kidney damage (ex. Proteinuria)CKD 2 Kidney damage with mild loss 60-89 of kidney functionCKD 3a Mild to moderate loss of kidney 45-59 functionCKD 3b Moderate to severe loss of 30-44 of kindey function CKD 4 Severe loss of kidney function 15-29CKD 5 Kidney failure <15Note: (go live 2024) the eGFR calculation was updated to the KD-EPI creatinine equation without a race factor to calculate theeGFR results. Performed By: #### B MP, CBC, PHOS, HFP, GFR, DIFF, MORPH, MG ####[place] [address] .Manual Diffon 05-13-2024 Bands 1.0 % Normal 0.0-5.0 [facility] Comment on above: Performed By: #### B MP, CBC, PHOS, HFP, GFR, DIFF, MORPH, MG ####[place] [address] Basophil %, Manual 0.0 % Normal 0.0-2.5 [facility] Comment on above: Performed By: #### B MP, CBC, PHOS, HFP, GFR, DIFF, MORPH, MG ####[place] [address] Basophil, Abs Manual 0.0 10 3/mcL Normal 0.0-0.[address] [facility] Comment on above: Performed By: #### B MP, CBC, PHOS, HFP, GFR, DIFF, MORPH, MG ####[place] [address] Eosinophil %, Manual 5.0 % Normal 0.0-6.0 [facility] Comment on above: Performed By: #### B MP, CBC, PHOS, HFP, GFR, DIFF, MORPH, MG ####[place] [address] Eosinophil, Abs Manual 0.7 10 3/mcL Normal 0.0-0.7 [facility] Comment on above: Performed By: #### B MP, CBC, PHOS, HFP, GFR, DIFF, MORPH, MG ####[address] [address] Lymphocyte %, Manual 18.0 % Low 20.0-40.0 [facility] Comment on above: Performed By: #### B MP, CBC, PHOS, HFP, GFR, DIFF, MORPH, MG ####[address] [address] Lymphocyte, Abs Manual 2.7 10 3/mcL Normal 0.9-4.3 [facility] Comment on above: Performed By: #### B MP, CBC, PHOS, HFP, GFR, DIFF, MORPH, MG ####[address] [address] Monocyte %, Manual 7.0 % Normal 2.0-13.0 [facility] Comment on above: Performed By: #### B MP, CBC, PHOS, HFP, GFR, DIFF, MORPH, MG ####[address] [address] Monocyte, Abs Manual 1.0 10 3/mcL Normal 0.1-1.[address] [facility] Comment on above: Performed By: #### B MP, CBC, PHOS, HFP, GFR, DIFF, MORPH, MG ####[address] [address] Neutrophil %, Manual 69.0 % Normal 50.0-75.0 [facility] Comment on above: Performed By: #### B MP, CBC, PHOS, HFP, GFR, DIFF, MORPH, MG ####[address] [address] Neutrophil, Abs Manual 10.2 10 3/mcL High 2.3-8.1 [facility] Comment on above: Performed By: #### B MP, CBC, PHOS, HFP, GFR, DIFF, MORPH, MG ####[address] [address] Nucleated RBC 0.0 /100 WBC Normal [facility] Comment on above: Performed By: #### B MP, CBC, PHOS, HFP, GFR, DIFF, MORPH, MG ####[address] [address] .Morphon 05-13-2024 Anisocytosis Ql (Bld) 1+ Normal [facility] Comment on above: Performed By: #### B MP, CBC, PHOS, HFP, GFR, DIFF, MORPH, MG ####[address] [address] Platelet Estimate Normal Normal [facility] Comment on above: Performed By: #### B MP, CBC, PHOS, HFP, GFR, DIFF, MORPH, MG ####[address] [address] Polychrom 1+ Normal [facility] Comment on above: Performed By: #### B MP, CBC, PHOS, HFP, GFR, DIFF, MORPH, MG ####[place] [address] BMPon 05-13-2024 BUN/Creatinine Ratio 22.9 ratio High 10.0-22.0 [facility] Comment on above: Performed By: #### B MP, CBC, PHOS, HFP, GFR, DIFF, MORPH, MG ####[place] [address] Calcium [Mass/Vol] 9.1 mg/dL Normal 8.7-10.4 [facility] Comment on above: Performed By: #### B MP, CBC, PHOS, HFP, GFR, DIFF, MORPH, MG ####[place] [address] Chloride [Moles/Vol] 100 mmol/L Normal 98-110 [facility] Comment on above: Performed By: #### B MP, CBC, PHOS, HFP, GFR, DIFF, MORPH, MG ####[place] [address] CO2 [Moles/Vol] 25 mmol/L Normal 22-32 [facility] Comment on above: Performed By: #### B MP, CBC, PHOS, HFP, GFR, DIFF, MORPH, MG ####[place] [address] Creatinine [Mass/Vol] 1.40 mg/dL Normal 0.60-1.40 [facility] Comment on above: Result Comment: Test ing performed on [employer] analyzer using enzymatic creatinine methodology. Performed By: #### B MP, CBC, PHOS, HFP, GFR, DIFF, MORPH, MG ####[place] [address] Electrolyte Balance 10.0 mEq/L Normal 4.0-15.0 [facility] Comment on above: Performed By: #### B MP, CBC, PHOS, HFP, GFR, DIFF, MORPH, MG ####[place] [address] Glucose [Mass/Vol] 117 mg/dL High 82-115 [facility] Comment on above: Performed By: #### B MP, CBC, PHOS, HFP, GFR, DIFF, MORPH, MG ####[place] [address] Potassium [Moles/Vol] 3.7 mmol/L Normal 3.5-5.0 [facility] Comment on above: Performed By: #### B MP, CBC, PHOS, HFP, GFR, DIFF, MORPH, MG ####[place] [address] Sodium [Moles/Vol] 135 mmol/L Low 136-145 [facility] Comment on above: Performed By: #### B MP, CBC, PHOS, HFP, GFR, DIFF, MORPH, MG ####[place] [address] Urea nitrogen [Mass/Vol] 32.0 mg/dL High 8.0-22.0 [facility] Comment on above: Performed By: #### B MP, CBC, PHOS, HFP, GFR, DIFF, MORPH, MG ####[place] [address] CBCon 05-13-2024 Erythrocyte distribution width (RBC) [Ratio] 14.6 % Normal 11.5-15.5 [facility] Comment on above: Performed By: #### B MP, CBC, PHOS, HFP, GFR, DIFF, MORPH, MG ####[place] [address] Hematocrit (Bld) [Volume fraction] 31.0 % Low 40.0-52.0 [facility] Comment on above: Performed By: #### B MP, CBC, PHOS, HFP, GFR, DIFF, MORPH, MG ####[place] [address] Hgb 10.7 G/dL Low 13.0-17.5 [facility] Comment on above: Performed By: #### B MP, CBC, PHOS, HFP, GFR, DIFF, MORPH, MG ####[place] [address] MCH (RBC) [Entitic mass] 30.7 pg Normal 27.0-33.0 [facility] Comment on above: Performed By: #### B MP, CBC, PHOS, HFP, GFR, DIFF, MORPH, MG ####[place] [address] MCHC 34.5 G/dL Normal 32.0-36.0 [facility] Comment on above: Performed By: #### B MP, CBC, PHOS, HFP, GFR, DIFF, MORPH, MG ####[place] [address] MCV (RBC) [Entitic vol] 89.0 fL Normal 81.0-100.0 [facility] Comment on above: Performed By: #### B MP, CBC, PHOS, HFP, GFR, DIFF, MORPH, MG ####[place] [address] Platelet 330 10 3/mcL Normal 150-450 [facility] Comment on above: Performed By: #### B MP, CBC, PHOS, HFP, GFR, DIFF, MORPH, MG ####[place] [address] Platelet mean volume (Bld) [Entitic vol] 9.2 fL Normal 6.4-10.5 [facility] Comment on above: Performed By: #### B MP, CBC, PHOS, HFP, GFR, DIFF, MORPH, MG ####[place] [address] RBC 3.49 10 6/mcL Low 4.50-6.00 [facility] Comment on above: Performed By: #### B MP, CBC, PHOS, HFP, GFR, DIFF, MORPH, MG ####[place] [address] WBC 14.7 10 3/mcL High 4.5-10.8 [facility] Comment on above: Performed By: #### B MP, CBC, PHOS, HFP, GFR, DIFF, MORPH, MG ####[place] [address] CBLon 05-13-2024 CBL Normal [facility] CBL Normal [facility] HFPon 05-13-2024 Bili Indirect 0.4 mg/dL Normal 0.1-10.0 [facility] Comment on above: Performed By: #### B MP, CBC, PHOS, HFP, GFR, DIFF, MORPH, MG ####[place] [address] Albumin Level 2.6 G/dL Low 3.2-4.8 [facility] Comment on above: Performed By: #### B MP, CBC, PHOS, HFP, GFR, DIFF, MORPH, MG ####[place] [address] Albumin/Globulin [Mass ratio] 0.7 {ratio} Low 0.9-1.6 [facility] Comment on above: Performed By: #### B MP, CBC, PHOS, HFP, GFR, DIFF, MORPH, MG ####[place] [address] ALP [Catalytic activity/Vol] 103 U/L Normal 38-126 [facility] Comment on above: Performed By: #### B MP, CBC, PHOS, HFP, GFR, DIFF, MORPH, MG ####[place] [address] ALT [Catalytic activity/Vol] 13 U/L Normal 12-55 [facility] Comment on above: Performed By: #### B MP, CBC, PHOS, HFP, GFR, DIFF, MORPH, MG ####[place] [address] AST [Catalytic activity/Vol] 24 U/L Normal 8-34 [facility] Comment on above: Performed By: #### B MP, CBC, PHOS, HFP, GFR, DIFF, MORPH, MG ####[place] [address] Bili Direct 0.2 mg/dL Normal 0.0-0.4 [facility] Comment on above: Result Comment: Use of this assay is not recommended for patients undergoing treatment with eltrombopag due to the potential for falsely elevated results. Performed By: #### B MP, CBC, PHOS, HFP, GFR, DIFF, MORPH, MG ####[place] [address] Bili Total 0.60 mg/dL Normal 0.20-1.20 [facility] Comment on above: Result Comment: Use of this assay is not recommended for patients undergoing treatment with eltrombopag due to the potential for falsely elevated results. Performed By: #### B MP, CBC, PHOS, HFP, GFR, DIFF, MORPH, MG ####[place] [address] Globulin 3.9 G/dL High 1.5-3.8 [facility] Comment on above: Performed By: #### B MP, CBC, PHOS, HFP, GFR, DIFF, MORPH, MG ####[place] [address] Total Protein 6.5 G/dL Normal 5.7-8.2 [facility] Comment on above: Performed By: #### B MP, CBC, PHOS, HFP, GFR, DIFF, MORPH, MG ####[place] [address] MGon 05-13-2024 Magnesium [Mass/Vol] 2.0 mg/dL Normal 1.6-2.4 [facility] Comment on above: Performed By: #### B MP, CBC, PHOS, HFP, GFR, DIFF, MORPH, MG ####[place] [address] MYCOon 05-13-2024 Mycoplasma IgG Positive Normal [facility] Comment on above: Result Comment: INTE RPRETATION OF MYCOPLASMA IgG BY EIA: Negative: No detectable M. pneumoniae IgG antibody. Positive: Mycoplasma pneumoniae IgG antibody Detected. Equivocal: Equivocal for IgG antibodies to Mycoplasma pneumoniae. Suggest repeat testing in 10-14 days. Performed By: #### M YCO ####[address] [address] PHOSon 05-13-2024 Phosphate [Mass/Vol] 2.8 mg/dL Normal 2.4-5.1 [facility] Comment on above: Result Comment: No te - New Reference Range in effect 19 Performed By: #### B MP, CBC, PHOS, HFP, GFR, DIFF, MORPH, MG ####[address] [address] XR CHEST 1 VIEWon 05-13-2024 XR CHEST 1 VIEW Normal [facility] .Auto Diffon 05-12-2024 Basophil, Absolute 0.1 10 3/mcL Normal 0.0-0.3 [facility] Comment on above: Performed By: #### B MP, ANEU, GFR, PHOS, CBC, HFP, ADIFF, MG ####[address] [address] Basophils/100 WBC (Bld) 0.9 % Normal 0.0-2.5 [facility] Comment on above: Performed By: #### B MP, ANEU, GFR, PHOS, CBC, HFP, ADIFF, MG ####[address] [address] Eosinophil, Absolute 0.6 10 3/mcL Normal 0.0-0.[address] [facility] Comment on above: Performed By: #### B MP, ANEU, GFR, PHOS, CBC, HFP, ADIFF, MG ####[address] [address] Eosinophils/100 WBC (Bld) 3.3 % Normal 0.0-6.0 [facility] Comment on above: Performed By: #### B MP, ANEU, GFR, PHOS, CBC, HFP, ADIFF, MG ####[address] [address] Lymphocyte, Absolute 3.5 10 3/mcL Normal 0.9-4.[address] [facility] Comment on above: Performed By: #### B MP, ANEU, GFR, PHOS, CBC, HFP, ADIFF, MG ####[address] [address] Lymphocytes/100 WBC (Bld) 20.5 % Normal 20.0-40.0 [facility] Comment on above: Performed By: #### B MP, ANEU, GFR, PHOS, CBC, HFP, ADIFF, MG ####[address] [address] Monocyte, Absolute 1.4 10 3/mcL Normal 0.1-1.4 [facility] Comment on above: Performed By: #### B MP, ANEU, GFR, PHOS, CBC, HFP, ADIFF, MG ####[address] [address] Monocytes/100 WBC (Bld) 8.3 % Normal 2.0-13.0 [facility] Comment on above: Performed By: #### B MP, ANEU, GFR, PHOS, CBC, HFP, ADIFF, MG ####[address] [address] Neutrophils/100 WBC (Bld) 67.0 % Normal 50.0-75.0 [facility] Comment on above: Performed By: #### B MP, ANEU, GFR, PHOS, CBC, HFP, ADIFF, MG ####[address] [address] .GFRon 05-12-2024 Estimated Glomerular Filtration Rate 54 ml/min/1.73sqm Normal [facility] Comment on above: Result Comment: Stag es of Chronic Kidney Disease (CKD)Stage Description eGFR(ml/min/1.73 sq.m.)CKD 1 Normal kidney function or >=90 normal kindney function with possible kidney damage (ex. Proteinuria)CKD 2 Kidney damage with mild loss 60-89 of kidney functionCKD 3a Mild to moderate loss of kidney 45-59 functionCKD 3b Moderate to severe loss of 30-44 of kindey function CKD 4 Severe loss of kidney function 15-29CKD 5 Kidney failure <15Note: (go live 2024) the eGFR calculation was updated to the KD-EPI creatinine equation without a race factor to calculate theeGFR results. Performed By: #### B MP, ANEU, GFR, PHOS, CBC, HFP, ADIFF, MG ####[address] [address] .NEUABSon 05-12-2024 Neutrophil, Absolute 11.3 10 3/mcL High 2.3-8.1 [facility] Comment on above: Performed By: #### B MP, ANEU, GFR, PHOS, CBC, HFP, ADIFF, MG ####[address] [address] BMPon 05-12-2024 BUN/Creatinine Ratio 23.4 ratio High 10.0-22.0 [facility] Comment on above: Performed By: #### B MP, ANEU, GFR, PHOS, CBC, HFP, ADIFF, MG ####[place] [address] Calcium [Mass/Vol] 8.7 mg/dL Normal 8.7-10.4 [facility] Comment on above: Performed By: #### B MP, ANEU, GFR, PHOS, CBC, HFP, ADIFF, MG ####[address] [address] Chloride [Moles/Vol] 103 mmol/L Normal 98-110 [facility] Comment on above: Performed By: #### B MP, ANEU, GFR, PHOS, CBC, HFP, ADIFF, MG ####[address] [address] CO2 [Moles/Vol] 26 mmol/L Normal 22-32 [facility] Comment on above: Performed By: #### B MP, ANEU, GFR, PHOS, CBC, HFP, ADIFF, MG ####[address] [address] Creatinine [Mass/Vol] 1.37 mg/dL Normal 0.60-1.40 [facility] Comment on above: Result Comment: Test ing performed on [employer] analyzer using enzymatic creatinine methodology. Performed By: #### B MP, ANEU, GFR, PHOS, CBC, HFP, ADIFF, MG ####[place] [address] Electrolyte Balance 8.0 mEq/L Normal 4.0-15.0 [facility] Comment on above: Performed By: #### B MP, ANEU, GFR, PHOS, CBC, HFP, ADIFF, MG ####[place] [address] Glucose [Mass/Vol] 107 mg/dL Normal 82-115 [facility] Comment on above: Performed By: #### B MP, ANEU, GFR, PHOS, CBC, HFP, ADIFF, MG ####[place] [address] Potassium [Moles/Vol] 4.1 mmol/L Normal 3.5-5.0 [facility] Comment on above: Performed By: #### B MP, ANEU, GFR, PHOS, CBC, HFP, ADIFF, MG ####[place] [address] Sodium [Moles/Vol] 137 mmol/L Normal 136-145 [facility] Comment on above: Performed By: #### B MP, ANEU, GFR, PHOS, CBC, HFP, ADIFF, MG ####[place] [address] Urea nitrogen [Mass/Vol] 32.0 mg/dL High 8.0-22.0 [facility] Comment on above: Performed By: #### B MP, ANEU, GFR, PHOS, CBC, HFP, ADIFF, MG ####[place] [id number] CBCon 05-12-2024 Erythrocyte distribution width (RBC) [Ratio] 14.8 % Normal 11.5-15.5 [facility] Comment on above: Performed By: #### B MP, ANEU, GFR, PHOS, CBC, HFP, ADIFF, MG ####[place] [address] Hematocrit (Bld) [Volume fraction] 31.3 % Low 40.0-52.0 [facility] Comment on above: Performed By: #### B MP, ANEU, GFR, PHOS, CBC, HFP, ADIFF, MG ####[place] [address] Hgb 10.3 G/dL Low 13.0-17.5 [facility] Comment on above: Performed By: #### B MP, ANEU, GFR, PHOS, CBC, HFP, ADIFF, MG ####[place] [address] MCH (RBC) [Entitic mass] 29.5 pg Normal 27.0-33.0 [facility] Comment on above: Performed By: #### B MP, ANEU, GFR, PHOS, CBC, HFP, ADIFF, MG ####[place] [address] MCHC 32.8 G/dL Normal 32.0-36.0 [facility] Comment on above: Performed By: #### B MP, ANEU, GFR, PHOS, CBC, HFP, ADIFF, MG ####[place] [address] MCV (RBC) [Entitic vol] 89.7 fL Normal 81.0-100.0 [facility] Comment on above: Performed By: #### B MP, ANEU, GFR, PHOS, CBC, HFP, ADIFF, MG ####[place] [address] Platelet 327 10 3/mcL Normal 150-450 [facility] Comment on above: Performed By: #### B MP, ANEU, GFR, PHOS, CBC, HFP, ADIFF, MG ####[place] [address] Platelet mean volume (Bld) [Entitic vol] 9.0 fL Normal 6.4-10.5 [facility] Comment on above: Performed By: #### B MP, ANEU, GFR, PHOS, CBC, HFP, ADIFF, MG ####[place] [address] RBC 3.48 10 6/mcL Low 4.50-6.00 [facility] Comment on above: Performed By: #### B MP, ANEU, GFR, PHOS, CBC, HFP, ADIFF, MG ####[place] [address] WBC 16.9 10 3/mcL High 4.5-10.8 [facility] Comment on above: Performed By: #### B MP, ANEU, GFR, PHOS, CBC, HFP, ADIFF, MG ####[place] [address] HFPon 05-12-2024 Bili Indirect 0.4 mg/dL Normal 0.1-10.0 [facility] Comment on above: Performed By: #### B MP, ANEU, GFR, PHOS, CBC, HFP, ADIFF, MG ####[place] [address] Albumin Level 2.7 G/dL Low 3.2-4.8 [facility] Comment on above: Performed By: #### B MP, ANEU, GFR, PHOS, CBC, HFP, ADIFF, MG ####[place] [address] Albumin/Globulin [Mass ratio] 0.7 {ratio} Low 0.9-1.6 [facility] Comment on above: Performed By: #### B MP, ANEU, GFR, PHOS, CBC, HFP, ADIFF, MG ####[place] [address] ALP [Catalytic activity/Vol] 103 U/L Normal 38-126 [facility] Comment on above: Performed By: #### B MP, ANEU, GFR, PHOS, CBC, HFP, ADIFF, MG ####[place] [address] ALT [Catalytic activity/Vol] 14 U/L Normal 12-55 [facility] Comment on above: Performed By: #### B MP, ANEU, GFR, PHOS, CBC, HFP, ADIFF, MG ####[place] [address] AST [Catalytic activity/Vol] 23 U/L Normal 8-34 [facility] Comment on above: Performed By: #### B MP, ANEU, GFR, PHOS, CBC, HFP, ADIFF, MG ####[place] [address] Bili Direct 0.2 mg/dL Normal 0.0-0.4 [facility] Comment on above: Result Comment: Use of this assay is not recommended for patients undergoing treatment with eltrombopag due to the potential for falsely elevated results. Performed By: #### B MP, ANEU, GFR, PHOS, CBC, HFP, ADIFF, MG ####[place] [address] Bili Total 0.60 mg/dL Normal 0.20-1.20 [facility] Comment on above: Result Comment: Use of this assay is not recommended for patients undergoing treatment with eltrombopag due to the potential for falsely elevated results. Performed By: #### B MP, ANEU, GFR, PHOS, CBC, HFP, ADIFF, MG ####[place] [address] Globulin 3.8 G/dL Normal 1.5-3.8 [facility] Comment on above: Performed By: #### B MP, ANEU, GFR, PHOS, CBC, HFP, ADIFF, MG ####[place] [address] Total Protein 6.5 G/dL Normal 5.7-8.2 [facility] Comment on above: Performed By: #### B MP, ANEU, GFR, PHOS, CBC, HFP, ADIFF, MG ####[place] [address] LUAon 05-12-2024 ARTUR Normal [facility] MGon 05-12-2024 Magnesium [Mass/Vol] 2.2 mg/dL Normal 1.6-2.4 [facility] Comment on above: Performed By: #### B MP, ANEU, GFR, PHOS, CBC, HFP, ADIFF, MG ####[place] [address] MRSAPCRon 05-12-2024 MRSA (PCR) Not detected Normal Not Detected [facility] Comment on above: Result Comment: Note s [id number] Performed By: #### M RSAPCR ####[place] [address] MRSA PCR Int Normal [facility] Comment on above: Result Comment: MRSA DNA not detected by Real-Time Polymerase Chain Reaction (PCR). A negative result may be due to intermittent colonization. Colonization may vary depending on patient treatment, patient status, or exposure to high-risk environments.As with all PCR based in vitro diagnostic tests, extremely low levels of target below the limit of detection of the assay may be detected, but results may not be reproducible.See Below Performed By: #### M RSAPCR ####[place] [address] MYCOon 05-12-2024 Mycoplasma IgM Negative Normal [facility] Comment on above: Result Comment: INTE RPRETATION OF MYCOPLASMA IgM: Negative: IgM to M. pneumoniae Absent, or at levels below the assay limit of detection. Positive: IgM to M. pneumoniae Present. Invalid: Test results are invalid due to invalid internal control. Assay was performed in duplicate. Repeat testing is suggested if clinically indicated. Performed By: #### M YCO ####[place] [address] PHOSon 05-12-2024 Phosphate [Mass/Vol] 2.7 mg/dL Normal 2.4-5.1 [facility] Comment on above: Result Comment: No te - New Reference Range in effect 19 Performed By: #### B MP, ANEU, GFR, PHOS, CBC, HFP, ADIFF, MG ####[address] [address] SPAGon 05-12-2024 SPAG Normal [facility] XR CHEST 1 VIEWon 05-12-2024 XR CHEST 1 VIEW Normal [facility] .GFRon 05-11-2024 Estimated Glomerular Filtration Rate 52 ml/min/1.73sqm [facility] Comment on above: Result Comment: Stag es of Chronic Kidney Disease (CKD)Stage Description eGFR(ml/min/1.73 sq.m.)CKD 1 Normal kidney function or >=90 normal kindney function with possible kidney damage (ex. Proteinuria)CKD 2 Kidney damage with mild loss 60-89 of kidney functionCKD 3a Mild to moderate loss of kidney 45-59 functionCKD 3b Moderate to severe loss of 30-44 of kindey function CKD 4 Severe loss of kidney function 15-29CKD 5 Kidney failure <15Note: (go live 2024) the eGFR calculation was updated to the KD-EPI creatinine equation without a race factor to calculate theeGFR results. Performed By: #### G FR, PHOS, DIFF, HFP, MORPH, MG, CBC, BMP ####[place] [address] .Manual Diffon 05-11-2024 Bands 1.0 % Normal 0.0-5.0 [facility] Comment on above: Performed By: #### G FR, PHOS, DIFF, HFP, MORPH, MG, CBC, BMP ####[place] [address] Basophil %, Manual 0.0 % Normal 0.0-2.5 [facility] Comment on above: Performed By: #### G FR, PHOS, DIFF, HFP, MORPH, MG, CBC, BMP ####[place] [address] Basophil, Abs Manual 0.0 10 3/mcL Normal 0.0-0.[address] [facility] Comment on above: Performed By: #### G FR, PHOS, DIFF, HFP, MORPH, MG, CBC, BMP ####[place] [address] Eosinophil %, Manual 3.0 % Normal 0.0-6.0 [facility] Comment on above: Performed By: #### G FR, PHOS, DIFF, HFP, MORPH, MG, CBC, BMP ####[place] [address] Eosinophil, Abs Manual 0.5 10 3/mcL Normal 0.0-0.7 [facility] Comment on above: Performed By: #### G FR, PHOS, DIFF, HFP, MORPH, MG, CBC, BMP ####[place] [address] Lymphocyte %, Manual 14.0 % Low 20.0-40.0 [facility] Comment on above: Performed By: #### G FR, PHOS, DIFF, HFP, MORPH, MG, CBC, BMP ####[address] [address] Lymphocyte, Abs Manual 2.3 10 3/mcL Normal 0.9-4.3 [facility] Comment on above: Performed By: #### G FR, PHOS, DIFF, HFP, MORPH, MG, CBC, BMP ####[place] [address] Metamyelocyte 1.0 % Normal [facility] Comment on above: Performed By: #### G FR, PHOS, DIFF, HFP, MORPH, MG, CBC, BMP ####[place] [address] Monocyte %, Manual 3.0 % Normal 2.0-13.0 [facility] Comment on above: Performed By: #### G FR, PHOS, DIFF, HFP, MORPH, MG, CBC, BMP ####[address] [address] Monocyte, Abs Manual 0.5 10 3/mcL Normal 0.1-1.[address] [facility] Comment on above: Performed By: #### G FR, PHOS, DIFF, HFP, MORPH, MG, CBC, BMP ####[place] [address] Myelocyte 2.0 % Normal [facility] Comment on above: Performed By: #### G FR, PHOS, DIFF, HFP, MORPH, MG, CBC, BMP ####[place] [id number] Neutrophil %, Manual 76.0 % High 50.0-75.0 [facility] Comment on above: Performed By: #### G FR, PHOS, DIFF, HFP, MORPH, MG, CBC, BMP ####[address] [address] Neutrophil, Abs Manual 12.7 10 3/mcL High 2.3-8.1 [facility] Comment on above: Performed By: #### G FR, PHOS, DIFF, HFP, MORPH, MG, CBC, BMP ####[place] [address] Nucleated RBC 0.0 /100 WBC Normal [facility] Comment on above: Performed By: #### G FR, PHOS, DIFF, HFP, MORPH, MG, CBC, BMP ####[place] [address] .Morphon 05-11-2024 Anisocytosis Ql (Bld) 1+ Normal [facility] Comment on above: Performed By: #### G FR, PHOS, DIFF, HFP, MORPH, MG, CBC, BMP ####[place] [address] Hypochrom 1+ Normal [facility] Comment on above: Performed By: #### G FR, PHOS, DIFF, HFP, MORPH, MG, CBC, BMP ####[place] [address] Large Platelets Few Normal [facility] Comment on above: Performed By: #### G FR, PHOS, DIFF, HFP, MORPH, MG, CBC, BMP ####[place] [address] Platelet Estimate Normal [facility] Comment on above: Performed By: #### G FR, PHOS, DIFF, HFP, MORPH, MG, CBC, BMP ####[place] [address] Polychrom 1+ Normal [facility] Comment on above: Performed By: #### G FR, PHOS, DIFF, HFP, MORPH, MG, CBC, BMP ####[place] [address] BMPon 05-11-2024 BUN/Creatinine Ratio 20.3 ratio Normal 10.0-22.0 [facility] Comment on above: Performed By: #### G FR, PHOS, DIFF, HFP, MORPH, MG, CBC, BMP ####[place] [address] Calcium [Mass/Vol] 8.8 mg/dL Normal 8.7-10.4 [facility] Comment on above: Performed By: #### G FR, PHOS, DIFF, HFP, MORPH, MG, CBC, BMP ####[address] [address] Chloride [Moles/Vol] 103 mmol/L Normal 98-110 [facility] Comment on above: Performed By: #### G FR, PHOS, DIFF, HFP, MORPH, MG, CBC, BMP ####[place] [id number] CO2 [Moles/Vol] 28 mmol/L Normal 22-32 [facility] Comment on above: Performed By: #### G FR, PHOS, DIFF, HFP, MORPH, MG, CBC, BMP ####[place] [address] Creatinine [Mass/Vol] 1.43 mg/dL High 0.60-1.40 [facility] Comment on above: Result Comment: Test ing performed on [employer]illian[employer] analyzer using enzymatic creatinine methodology. Performed By: #### G FR, PHOS, DIFF, HFP, MORPH, MG, CBC, BMP ####[place] [address] Electrolyte Balance 8.0 mEq/L Normal 4.0-15.0 [facility] Comment on above: Performed By: #### G FR, PHOS, DIFF, HFP, MORPH, MG, CBC, BMP ####[place] [address] Glucose [Mass/Vol] 107 mg/dL Normal 82-115 [facility] Comment on above: Performed By: #### G FR, PHOS, DIFF, HFP, MORPH, MG, CBC, BMP ####[place] [address] Potassium [Moles/Vol] 3.8 mmol/L Normal 3.5-5.0 [facility] Comment on above: Performed By: #### G FR, PHOS, DIFF, HFP, MORPH, MG, CBC, BMP ####[place] [address] Sodium [Moles/Vol] 139 mmol/L Normal 136-145 [facility] Comment on above: Performed By: #### G FR, PHOS, DIFF, HFP, MORPH, MG, CBC, BMP ####[place] [address] Urea nitrogen [Mass/Vol] 29.0 mg/dL High 8.0-22.0 [facility] Comment on above: Performed By: #### G FR, PHOS, DIFF, HFP, MORPH, MG, CBC, BMP ####[place] [address] CBCon 05-11-2024 Erythrocyte distribution width (RBC) [Ratio] 14.6 % Normal 11.5-15.5 [facility] Comment on above: Performed By: #### G FR, PHOS, DIFF, HFP, MORPH, MG, CBC, BMP ####[place] [address] Hematocrit (Bld) [Volume fraction] 32.7 % Low 40.0-52.0 [facility] Comment on above: Performed By: #### G FR, PHOS, DIFF, HFP, MORPH, MG, CBC, BMP ####[place] [address] Hgb 10.9 G/dL Low 13.0-17.5 [facility] Comment on above: Performed By: #### G FR, PHOS, DIFF, HFP, MORPH, MG, CBC, BMP ####[place] [address] MCH (RBC) [Entitic mass] 30.4 pg Normal 27.0-33.0 [facility] Comment on above: Performed By: #### G FR, PHOS, DIFF, HFP, MORPH, MG, CBC, BMP ####[place] [address] MCHC 33.3 G/dL Normal 32.0-36.0 [facility] Comment on above: Performed By: #### G FR, PHOS, DIFF, HFP, MORPH, MG, CBC, BMP ####[place] [address] MCV (RBC) [Entitic vol] 91.2 fL Normal 81.0-100.0 [facility] Comment on above: Performed By: #### G FR, PHOS, DIFF, HFP, MORPH, MG, CBC, BMP ####[place] [address] Platelet 309 10 3/mcL Normal 150-450 [facility] Comment on above: Performed By: #### G FR, PHOS, DIFF, HFP, MORPH, MG, CBC, BMP ####[place] [address] Platelet mean volume (Bld) [Entitic vol] 9.3 fL Normal 6.4-10.5 [facility] Comment on above: Performed By: #### G FR, PHOS, DIFF, HFP, MORPH, MG, CBC, BMP ####[place] [address] RBC 3.58 10 6/mcL Low 4.50-6.00 [facility] Comment on above: Performed By: #### G FR, PHOS, DIFF, HFP, MORPH, MG, CBC, BMP ####[place] [address] WBC 16.5 10 3/mcL High 4.5-10.8 [facility] Comment on above: Performed By: #### G FR, PHOS, DIFF, HFP, MORPH, MG, CBC, BMP ####[place] [address] HFPon 05-11-2024 Bili Indirect 0.5 mg/dL Normal 0.1-10.0 [facility] Comment on above: Performed By: #### G FR, PHOS, DIFF, HFP, MORPH, MG, CBC, BMP ####[place] [address] Albumin Level 2.9 G/dL Low 3.2-4.8 [facility] Comment on above: Performed By: #### G FR, PHOS, DIFF, HFP, MORPH, MG, CBC, BMP ####[place] [address] Albumin/Globulin [Mass ratio] 0.7 {ratio} Low 0.9-1.6 [facility] Comment on above: Performed By: #### G FR, PHOS, DIFF, HFP, MORPH, MG, CBC, BMP ####[place] [address] ALP [Catalytic activity/Vol] 108 U/L Normal 38-126 [facility] Comment on above: Performed By: #### G FR, PHOS, DIFF, HFP, MORPH, MG, CBC, BMP ####[place] [address] ALT [Catalytic activity/Vol] 15 U/L Normal 12-55 [facility] Comment on above: Performed By: #### G FR, PHOS, DIFF, HFP, MORPH, MG, CBC, BMP ####[place] [address] AST [Catalytic activity/Vol] 26 U/L Normal 8-34 [facility] Comment on above: Performed By: #### G FR, PHOS, DIFF, HFP, MORPH, MG, CBC, BMP ####[place] [address] Bili Direct 0.2 mg/dL Normal 0.0-0.4 [facility] Comment on above: Result Comment: Use of this assay is not recommended for patients undergoing treatment with eltrombopag due to the potential for falsely elevated results. Performed By: #### G FR, PHOS, DIFF, HFP, MORPH, MG, CBC, BMP ####[place] [address] Bili Total 0.70 mg/dL Normal 0.20-1.20 [facility] Comment on above: Result Comment: Use of this assay is not recommended for patients undergoing treatment with eltrombopag due to the potential for falsely elevated results. Performed By: #### G FR, PHOS, DIFF, HFP, MORPH, MG, CBC, BMP ####[place] [address] Globulin 4.1 G/dL High 1.5-3.8 [facility] Comment on above: Performed By: #### G FR, PHOS, DIFF, HFP, MORPH, MG, CBC, BMP ####[place] [id number] [place] [id number] Total Protein 7.0 G/dL Normal 5.7-8.2 [facility] Comment on above: Performed By: #### G FR, PHOS, DIFF, HFP, MORPH, MG, CBC, BMP ####[place] [id number] [place] [address] MGon 05-11-2024 Magnesium [Mass/Vol] 2.4 mg/dL Normal 1.6-2.4 [facility] Comment on above: Performed By: #### G FR, PHOS, DIFF, HFP, MORPH, MG, CBC, BMP ####[address] [address] PHOSon 05-11-2024 Phosphate [Mass/Vol] 2.5 mg/dL Normal 2.4-5.1 [facility] Comment on above: Result Comment: No te - New Reference Range in effect 19 Performed By: #### G FR, PHOS, DIFF, HFP, MORPH, MG, CBC, BMP ####[address] [address] XR CHEST 1 VIEWon 05-11-2024 XR CHEST 1 VIEW Normal [facility] .GFRon 05-10-2024 Estimated Glomerular Filtration Rate 52 ml/min/1.73sqm Normal [facility] Comment on above: Result Comment: Stag es of Chronic Kidney Disease (CKD)Stage Description eGFR(ml/min/1.73 sq.m.)CKD 1 Normal kidney function or >=90 normal kindney function with possible kidney damage (ex. Proteinuria)CKD 2 Kidney damage with mild loss 60-89 of kidney functionCKD 3a Mild to moderate loss of kidney 45-59 functionCKD 3b Moderate to severe loss of 30-44 of kindey function CKD 4 Severe loss of kidney function 15-29CKD 5 Kidney failure <15Note: (go live 2024) the eGFR calculation was updated to the KD-EPI creatinine equation without a race factor to calculate theeGFR results. Performed By: #### P HOS, MORPH, DIFF, MG, CBC, GFR, BMP, HFP ####[address] [address] .Manual Diffon 05-10-2024 Basophil %, Manual 0.0 % Normal 0.0-2.5 [facility] Comment on above: Performed By: #### P HOS, MORPH, DIFF, MG, CBC, GFR, BMP, HFP ####[place] [address] Basophil, Abs Manual 0.0 10 3/mcL Normal 0.0-0.[address] [facility] Comment on above: Performed By: #### P HOS, MORPH, DIFF, MG, CBC, GFR, BMP, HFP ####[place] [address] Eosinophil %, Manual 3.0 % Normal 0.0-6.0 [facility] Comment on above: Performed By: #### P HOS, MORPH, DIFF, MG, CBC, GFR, BMP, HFP ####[place] [address] Eosinophil, Abs Manual 0.5 10 3/mcL Normal 0.0-0.7 [facility] Comment on above: Performed By: #### P HOS, MORPH, DIFF, MG, CBC, GFR, BMP, HFP ####[place] [address] Lymphocyte %, Manual 17.0 % Low 20.0-40.0 [facility] Comment on above: Performed By: #### P HOS, MORPH, DIFF, MG, CBC, GFR, BMP, HFP ####[place] [address] Lymphocyte, Abs Manual 2.7 10 3/mcL Normal 0.9-4.3 [facility] Comment on above: Performed By: #### P HOS, MORPH, DIFF, MG, CBC, GFR, BMP, HFP ####[place] [address] Metamyelocyte 1.0 % Normal [facility] Comment on above: Performed By: #### P HOS, MORPH, DIFF, MG, CBC, GFR, BMP, HFP ####[place] [address] Monocyte %, Manual 7.0 % Normal 2.0-13.0 [facility] Comment on above: Performed By: #### P HOS, MORPH, DIFF, MG, CBC, GFR, BMP, HFP ####[place] [id number] Monocyte, Abs Manual 1.1 10 3/mcL Normal 0.1-1.[address] [facility] Comment on above: Performed By: #### P HOS, MORPH, DIFF, MG, CBC, GFR, BMP, HFP ####[place] [address] Myelocyte 2.0 % Normal [facility] Comment on above: Performed By: #### P HOS, MORPH, DIFF, MG, CBC, GFR, BMP, HFP ####[place] [address] Neutrophil %, Manual 70.0 % Normal 50.0-75.0 [facility] Comment on above: Performed By: #### P HOS, MORPH, DIFF, MG, CBC, GFR, BMP, HFP ####[place] [address] Neutrophil, Abs Manual 11.0 10 3/mcL High 2.3-8.1 [facility] Comment on above: Performed By: #### P HOS, MORPH, DIFF, MG, CBC, GFR, BMP, HFP ####[place] [address] Nucleated RBC 3.0 /100 WBC Normal [facility] Comment on above: Performed By: #### P HOS, MORPH, DIFF, MG, CBC, GFR, BMP, HFP ####[place] [address] .Morphon 05-10-2024 Anisocytosis Ql (Bld) 1+ Normal [facility] Comment on above: Performed By: #### P HOS, MORPH, DIFF, MG, CBC, GFR, BMP, HFP ####[place] [address] Ovalocytes 1+ Normal [facility] Comment on above: Performed By: #### P HOS, MORPH, DIFF, MG, CBC, GFR, BMP, HFP ####[place] [id number] Platelet Estimate Normal Normal [facility] Comment on above: Performed By: #### P HOS, MORPH, DIFF, MG, CBC, GFR, BMP, HFP ####[place] [address] Polychrom 1+ Normal [facility] Comment on above: Performed By: #### P HOS, MORPH, DIFF, MG, CBC, GFR, BMP, HFP ####[place] [address] BMPon 05-10-2024 BUN/Creatinine Ratio 25.4 ratio High 10.0-22.0 [facility] Comment on above: Performed By: #### P HOS, MORPH, DIFF, MG, CBC, GFR, BMP, HFP ####[place] [address] Calcium [Mass/Vol] 8.8 mg/dL Normal 8.7-10.4 [facility] Comment on above: Performed By: #### P HOS, MORPH, DIFF, MG, CBC, GFR, BMP, HFP ####[place] [address] Chloride [Moles/Vol] 102 mmol/L Normal 98-110 [facility] Comment on above: Performed By: #### P HOS, MORPH, DIFF, MG, CBC, GFR, BMP, HFP ####[place] [address] CO2 [Moles/Vol] 27 mmol/L Normal 22-32 [facility] Comment on above: Performed By: #### P HOS, MORPH, DIFF, MG, CBC, GFR, BMP, HFP ####[place] [address] Creatinine [Mass/Vol] 1.42 mg/dL High 0.60-1.40 [facility] Comment on above: Result Comment: Test ing performed on XillianTV analyzer using enzymatic creatinine methodology. Performed By: #### P HOS, MORPH, DIFF, MG, CBC, GFR, BMP, HFP ####[place] [address] Electrolyte Balance 9.0 mEq/L Normal 4.0-15.0 [facility] Comment on above: Performed By: #### P HOS, MORPH, DIFF, MG, CBC, GFR, BMP, HFP ####[place] [address] Glucose [Mass/Vol] 111 mg/dL Normal 82-115 [facility] Comment on above: Performed By: #### P HOS, MORPH, DIFF, MG, CBC, GFR, BMP, HFP ####[place] [address] Potassium [Moles/Vol] 3.6 mmol/L Normal 3.5-5.0 [facility] Comment on above: Performed By: #### P HOS, MORPH, DIFF, MG, CBC, GFR, BMP, HFP ####[place] [address] Sodium [Moles/Vol] 138 mmol/L Normal 136-145 [facility] Comment on above: Performed By: #### P HOS, MORPH, DIFF, MG, CBC, GFR, BMP, HFP ####[place] [address] Urea nitrogen [Mass/Vol] 36.0 mg/dL High 8.0-22.0 [facility] Comment on above: Performed By: #### P HOS, MORPH, DIFF, MG, CBC, GFR, BMP, HFP ####[place] [address] CBCon 05-10-2024 Erythrocyte distribution width (RBC) [Ratio] 14.2 % Normal 11.5-15.5 [facility] Comment on above: Performed By: #### P HOS, MORPH, DIFF, MG, CBC, GFR, BMP, HFP ####[place] [address] Hematocrit (Bld) [Volume fraction] 29.1 % Low 40.0-52.0 [facility] Comment on above: Performed By: #### P HOS, MORPH, DIFF, MG, CBC, GFR, BMP, HFP ####[place] [address] Hgb 9.8 G/dL Low 13.0-17.5 [facility] Comment on above: Performed By: #### P HOS, MORPH, DIFF, MG, CBC, GFR, BMP, HFP ####[place] [address] MCH (RBC) [Entitic mass] 29.8 pg Normal 27.0-33.0 [facility] Comment on above: Performed By: #### P HOS, MORPH, DIFF, MG, CBC, GFR, BMP, HFP ####[place] [address] MCHC 33.6 G/dL Normal 32.0-36.0 [facility] Comment on above: Performed By: #### P HOS, MORPH, DIFF, MG, CBC, GFR, BMP, HFP ####[place] [address] MCV (RBC) [Entitic vol] 88.9 fL Normal 81.0-100.0 [facility] Comment on above: Performed By: #### P HOS, MORPH, DIFF, MG, CBC, GFR, BMP, HFP ####[place] [address] Platelet 252 10 3/mcL Normal 150-450 [facility] Comment on above: Performed By: #### P HOS, MORPH, DIFF, MG, CBC, GFR, BMP, HFP ####[place] [address] Platelet mean volume (Bld) [Entitic vol] 9.6 fL Normal 6.4-10.5 [facility] Comment on above: Performed By: #### P HOS, MORPH, DIFF, MG, CBC, GFR, BMP, HFP ####[place] [address] RBC 3.28 10 6/mcL Low 4.50-6.00 [facility] Comment on above: Performed By: #### P HOS, MORPH, DIFF, MG, CBC, GFR, BMP, HFP ####[place] [address] WBC 15.7 10 3/mcL High 4.5-10.8 [facility] Comment on above: Performed By: #### P HOS, MORPH, DIFF, MG, CBC, GFR, BMP, HFP ####[place] [address] HFPon 05-10-2024 Bili Indirect 0.4 mg/dL Normal 0.1-10.0 [facility] Comment on above: Performed By: #### P HOS, MORPH, DIFF, MG, CBC, GFR, BMP, HFP ####[place] [address] Albumin Level 2.7 G/dL Low 3.2-4.8 [facility] Comment on above: Performed By: #### P HOS, MORPH, DIFF, MG, CBC, GFR, BMP, HFP ####[place] [address] Albumin/Globulin [Mass ratio] 0.7 {ratio} Low 0.9-1.6 [facility] Comment on above: Performed By: #### P HOS, MORPH, DIFF, MG, CBC, GFR, BMP, HFP ####[place] [address] ALP [Catalytic activity/Vol] 96 U/L Normal 38-126 [facility] Comment on above: Performed By: #### P HOS, MORPH, DIFF, MG, CBC, GFR, BMP, HFP ####[place] [address] ALT [Catalytic activity/Vol] 12 U/L Normal 12-55 [facility] Comment on above: Performed By: #### P HOS, MORPH, DIFF, MG, CBC, GFR, BMP, HFP ####[place] [address] AST [Catalytic activity/Vol] 31 U/L Normal 8-34 [facility] Comment on above: Performed By: #### P HOS, MORPH, DIFF, MG, CBC, GFR, BMP, HFP ####[place] [address] Bili Direct 0.2 mg/dL Normal 0.0-0.4 [facility] Comment on above: Result Comment: Use of this assay is not recommended for patients undergoing treatment with eltrombopag due to the potential for falsely elevated results. Performed By: #### P HOS, MORPH, DIFF, MG, CBC, GFR, BMP, HFP ####[place] [address] Bili Total 0.60 mg/dL Normal 0.20-1.20 [facility] Comment on above: Result Comment: Use of this assay is not recommended for patients undergoing treatment with eltrombopag due to the potential for falsely elevated results. Performed By: #### P HOS, MORPH, DIFF, MG, CBC, GFR, BMP, HFP ####[place] [address] Globulin 3.7 G/dL Normal 1.5-3.8 [facility] Comment on above: Performed By: #### P HOS, MORPH, DIFF, MG, CBC, GFR, BMP, HFP ####[place] [address] Total Protein 6.4 G/dL Normal 5.7-8.2 [facility] Comment on above: Performed By: #### P HOS, MORPH, DIFF, MG, CBC, GFR, BMP, HFP ####[place] [address] MGon 05-10-2024 Magnesium [Mass/Vol] 2.4 mg/dL Normal 1.6-2.4 [facility] Comment on above: Performed By: #### P HOS, MORPH, DIFF, MG, CBC, GFR, BMP, HFP ####[place] [address] PHOSon 05-10-2024 Phosphate [Mass/Vol] 2.4 mg/dL Normal 2.4-5.1 [facility] Comment on above: Result Comment: No te - New Reference Range in effect 19 Performed By: #### P HOS, MORPH, DIFF, MG, CBC, GFR, BMP, HFP ####[place] [address] XR CHEST 1 VIEWon 05-10-2024 XR CHEST 1 VIEW Normal [facility] .GFRon 05-09-2024 Estimated Glomerular Filtration Rate 51 ml/min/1.73sqm Normal [facility] Comment on above: Result Comment: Stag es of Chronic Kidney Disease (CKD)Stage Description eGFR(ml/min/1.73 sq.m.)CKD 1 Normal kidney function or >=90 normal kindney function with possible kidney damage (ex. Proteinuria)CKD 2 Kidney damage with mild loss 60-89 of kidney functionCKD 3a Mild to moderate loss of kidney 45-59 functionCKD 3b Moderate to severe loss of 30-44 of kindey function CKD 4 Severe loss of kidney function 15-29CKD 5 Kidney failure <15Note: (go live 2024) the eGFR calculation was updated to the KD-EPI creatinine equation without a race factor to calculate theeGFR results. Performed By: #### C MP, GFR ####[place] [address] .Manual Diffon 05-09-2024 Basophil %, Manual 0.0 % Normal 0.0-2.5 [facility] Comment on above: Performed By: #### C BC, PHOS, HFP, DIFF, MG, MORPH ####[place] [address] Basophil, Abs Manual 0.0 10 3/mcL Normal 0.0-0.[address] [facility] Comment on above: Performed By: #### C BC, PHOS, HFP, DIFF, MG, MORPH ####[place] [address] Eosinophil %, Manual 0.0 % Normal 0.0-6.0 [facility] Comment on above: Performed By: #### C BC, PHOS, HFP, DIFF, MG, MORPH ####[place] [address] Eosinophil, Abs Manual 0.0 10 3/mcL Normal 0.0-0.7 [facility] Comment on above: Performed By: #### C BC, PHOS, HFP, DIFF, MG, MORPH ####[place] [address] Lymphocyte %, Manual 22.0 % Normal 20.0-40.0 [facility] Comment on above: Performed By: #### C BC, PHOS, HFP, DIFF, MG, MORPH ####[address] [address] Lymphocyte, Abs Manual 3.4 10 3/mcL Normal 0.9-4.3 [facility] Comment on above: Performed By: #### C BC, PHOS, HFP, DIFF, MG, MORPH ####[address] [address] Monocyte %, Manual 10.0 % Normal 2.0-13.0 [facility] Comment on above: Performed By: #### C BC, PHOS, HFP, DIFF, MG, MORPH ####[address] [address] Monocyte, Abs Manual 1.6 10 3/mcL High 0.1-1.[address] [facility] Comment on above: Performed By: #### C BC, PHOS, HFP, DIFF, MG, MORPH ####[place] [address] Neutrophil %, Manual 68.0 % Normal 50.0-75.0 [facility] Comment on above: Performed By: #### C BC, PHOS, HFP, DIFF, MG, MORPH ####[address] [address] Neutrophil, Abs Manual 10.5 10 3/mcL High 2.3-8.1 [facility] Comment on above: Performed By: #### C BC, PHOS, HFP, DIFF, MG, MORPH ####[place] [address] Nucleated RBC 0.0 /100 WBC Normal [facility] Comment on above: Performed By: #### C BC, PHOS, HFP, DIFF, MG, MORPH ####[address] [address] .Morphon 05-09-2024 RBC morphology finding Nom (Bld) Normal Normal [facility] Comment on above: Performed By: #### C BC, PHOS, HFP, DIFF, MG, MORPH ####[place] [id number] Platelet Estimate Normal Normal [facility] Comment on above: Performed By: #### C BC, PHOS, HFP, DIFF, MG, MORPH ####[place] [address] CBCon 05-09-2024 Erythrocyte distribution width (RBC) [Ratio] 14.5 % Normal 11.5-15.5 [facility] Comment on above: Performed By: #### C BC, PHOS, HFP, DIFF, MG, MORPH ####[place] [address] Hematocrit (Bld) [Volume fraction] 30.8 % Low 40.0-52.0 [facility] Comment on above: Performed By: #### C BC, PHOS, HFP, DIFF, MG, MORPH ####[place] [address] Hgb 10.6 G/dL Low 13.0-17.5 [facility] Comment on above: Performed By: #### C BC, PHOS, HFP, DIFF, MG, MORPH ####[place] [address] MCH (RBC) [Entitic mass] 30.9 pg Normal 27.0-33.0 [facility] Comment on above: Performed By: #### C BC, PHOS, HFP, DIFF, MG, MORPH ####[place] [address] MCHC 34.5 G/dL Normal 32.0-36.0 [facility] Comment on above: Performed By: #### C BC, PHOS, HFP, DIFF, MG, MORPH ####[place] [address] MCV (RBC) [Entitic vol] 89.5 fL Normal 81.0-100.0 [facility] Comment on above: Performed By: #### C BC, PHOS, HFP, DIFF, MG, MORPH ####[place] [address] Platelet 220 10 3/mcL Normal 150-450 [facility] Comment on above: Performed By: #### C BC, PHOS, HFP, DIFF, MG, MORPH ####[place] [address] Platelet mean volume (Bld) [Entitic vol] 10.0 fL Normal 6.4-10.5 [facility] Comment on above: Performed By: #### C BC, PHOS, HFP, DIFF, MG, MORPH ####[place] [address] RBC 3.44 10 6/mcL Low 4.50-6.00 [facility] Comment on above: Performed By: #### C BC, PHOS, HFP, DIFF, MG, MORPH ####[place] [address] WBC 15.5 10 3/mcL High 4.5-10.8 [facility] Comment on above: Performed By: #### C BC, PHOS, HFP, DIFF, MG, MORPH ####[place] [address] CMPon 05-09-2024 Albumin Level 3.0 G/dL Low 3.2-4.8 [facility] Comment on above: Performed By: #### C MP, GFR ####[place] [address] Albumin/Globulin [Mass ratio] 0.8 {ratio} Low 0.9-1.6 [facility] Comment on above: Performed By: #### C MP, GFR ####[place] [address] ALP [Catalytic activity/Vol] 104 U/L Normal 38-126 [facility] Comment on above: Performed By: #### C MP, GFR ####[place] [address] ALT [Catalytic activity/Vol] 15 U/L Normal 12-55 [facility] Comment on above: Performed By: #### C MP, GFR ####[place] [address] AST [Catalytic activity/Vol] 37 U/L High 8-34 [facility] Comment on above: Performed By: #### C MP, GFR ####[place] [address] Bili Total 0.60 mg/dL Normal 0.20-1.20 [facility] Comment on above: Result Comment: Use of this assay is not recommended for patients undergoing treatment with eltrombopag due to the potential for falsely elevated results. Performed By: #### C MP, GFR ####[place] [address] BUN/Creatinine Ratio 31.7 ratio High 10.0-22.0 [facility] Comment on above: Performed By: #### C MP, GFR ####[place] [id number] Calcium [Mass/Vol] 8.9 mg/dL Normal 8.7-10.4 [facility] Comment on above: Performed By: #### C MP, GFR ####[place] [address] Chloride [Moles/Vol] 103 mmol/L Normal 98-110 [facility] Comment on above: Performed By: #### C MP, GFR ####[place] [id number] CO2 [Moles/Vol] 24 mmol/L Normal 22-32 [facility] Comment on above: Performed By: #### C MP, GFR ####[place] [address] Creatinine [Mass/Vol] 1.45 mg/dL High 0.60-1.40 [facility] Comment on above: Result Comment: Test ing performed on XillianTV analyzer using enzymatic creatinine methodology. Performed By: #### C MP, GFR ####[place] [address] Electrolyte Balance 10.0 mEq/L Normal 4.0-15.0 [facility] Comment on above: Performed By: #### C MP, GFR ####[place] [id number] Globulin 4.0 G/dL High 1.5-3.8 [facility] Comment on above: Performed By: #### C MP, GFR ####[place] [id number] Glucose [Mass/Vol] 112 mg/dL Normal 82-115 [facility] Comment on above: Performed By: #### C MP, GFR ####[address] [address] Potassium [Moles/Vol] 3.6 mmol/L Normal 3.5-5.0 [facility] Comment on above: Performed By: #### C MP, GFR ####[address] [address] Sodium [Moles/Vol] 137 mmol/L Normal 136-145 [facility] Comment on above: Performed By: #### C MP, GFR ####[address] [address] Total Protein 7.0 G/dL Normal 5.7-8.2 [facility] Comment on above: Performed By: #### C MP, GFR ####[address] [address] Urea nitrogen [Mass/Vol] 46.0 mg/dL High 8.0-22.0 [facility] Comment on above: Performed By: #### C MP, GFR ####[place] [address] HFPon 05-09-2024 Bili Indirect 0.4 mg/dL Normal 0.1-10.0 [facility] Comment on above: Performed By: #### C BC, PHOS, HFP, DIFF, MG, MORPH ####[address] [address] Albumin Level 3.1 G/dL Low 3.2-4.8 [facility] Comment on above: Performed By: #### C BC, PHOS, HFP, DIFF, MG, MORPH ####[address] [address] Albumin/Globulin [Mass ratio] 0.8 {ratio} Low 0.9-1.6 [facility] Comment on above: Performed By: #### C BC, PHOS, HFP, DIFF, MG, MORPH ####[address] [address] ALP [Catalytic activity/Vol] 105 U/L Normal 38-126 [facility] Comment on above: Performed By: #### C BC, PHOS, HFP, DIFF, MG, MORPH ####[address] [address] ALT [Catalytic activity/Vol] 13 U/L Normal 12-55 [facility] Comment on above: Performed By: #### C BC, PHOS, HFP, DIFF, MG, MORPH ####[address] [address] AST [Catalytic activity/Vol] 36 U/L High 8-34 [facility] Comment on above: Performed By: #### C BC, PHOS, HFP, DIFF, MG, MORPH ####[address] [address] Bili Direct 0.2 mg/dL Normal 0.0-0.4 [facility] Comment on above: Result Comment: Use of this assay is not recommended for patients undergoing treatment with eltrombopag due to the potential for falsely elevated results. Performed By: #### C BC, PHOS, HFP, DIFF, MG, MORPH ####[place] [address] Bili Total 0.60 mg/dL Normal 0.20-1.20 [facility] Comment on above: Result Comment: Use of this assay is not recommended for patients undergoing treatment with eltrombopag due to the potential for falsely elevated results. Performed By: #### C BC, PHOS, HFP, DIFF, MG, MORPH ####[address] [address] Globulin 3.9 G/dL High 1.5-3.8 [facility] Comment on above: Performed By: #### C BC, PHOS, HFP, DIFF, MG, MORPH ####[place] [address] Total Protein 7.0 G/dL Normal 5.7-8.2 [facility] Comment on above: Performed By: #### C BC, PHOS, HFP, DIFF, MG, MORPH ####[place] [address] MGon 05-09-2024 Magnesium [Mass/Vol] 2.4 mg/dL Normal 1.6-2.4 [facility] Comment on above: Performed By: #### C BC, PHOS, HFP, DIFF, MG, MORPH ####[address] [address] PHOSon 05-09-2024 Phosphate [Mass/Vol] 2.4 mg/dL Normal 2.4-5.1 [facility] Comment on above: Result Comment: No te - New Reference Range in effect 19 Performed By: #### C BC, PHOS, HFP, DIFF, MG, MORPH ####[place] [address] XR CHEST 2 VIEWSon XR CHEST 2 VIEWS Normal [facility] .Auto Diffon 05-08-2024 Basophil, Absolute 0.1 10 3/mcL Normal 0.0-0.3 [facility] Comment on above: Performed By: #### B MP, MG, GFR, ADIFF, PHOS, ANEU, CBC, HFP ####[place] [address] Basophils/100 WBC (Bld) 0.4 % Normal 0.0-2.5 [facility] Comment on above: Performed By: #### B MP, MG, GFR, ADIFF, PHOS, ANEU, CBC, HFP ####[address] [address] Eosinophil, Absolute 0.1 10 3/mcL Normal 0.0-0.[address] [facility] Comment on above: Performed By: #### B MP, MG, GFR, ADIFF, PHOS, ANEU, CBC, HFP ####[address] [address] Eosinophils/100 WBC (Bld) 0.6 % Normal 0.0-6.0 [facility] Comment on above: Performed By: #### B MP, MG, GFR, ADIFF, PHOS, ANEU, CBC, HFP ####[address] [address] Lymphocyte, Absolute 3.1 10 3/mcL Normal 0.9-4.[address] [facility] Comment on above: Performed By: #### B MP, MG, GFR, ADIFF, PHOS, ANEU, CBC, HFP ####[address] [address] Lymphocytes/100 WBC (Bld) 16.8 % Low 20.0-40.0 [facility] Comment on above: Performed By: #### B MP, MG, GFR, ADIFF, PHOS, ANEU, CBC, HFP ####[address] [address] Monocyte, Absolute 2.0 10 3/mcL High 0.1-1.4 [facility] Comment on above: Performed By: #### B MP, MG, GFR, ADIFF, PHOS, ANEU, CBC, HFP ####[address] [address] Monocytes/100 WBC (Bld) 11.2 % Normal 2.0-13.0 [facility] Comment on above: Performed By: #### B MP, MG, GFR, ADIFF, PHOS, ANEU, CBC, HFP ####[address] [address] Neutrophils/100 WBC (Bld) 71.0 % Normal 50.0-75.0 [facility] Comment on above: Performed By: #### B MP, MG, GFR, ADIFF, PHOS, ANEU, CBC, HFP ####[address] [address] .GFRon 05-08-2024 Estimated Glomerular Filtration Rate 46 ml/min/1.73sqm Normal [facility] Comment on above: Result Comment: Stag es of Chronic Kidney Disease (CKD)Stage Description eGFR(ml/min/1.73 sq.m.)CKD 1 Normal kidney function or >=90 normal kindney function with possible kidney damage (ex. Proteinuria)CKD 2 Kidney damage with mild loss 60-89 of kidney functionCKD 3a Mild to moderate loss of kidney 45-59 functionCKD 3b Moderate to severe loss of 30-44 of kindey function CKD 4 Severe loss of kidney function 15-29CKD 5 Kidney failure <15Note: (go live 2024) the eGFR calculation was updated to the KD-EPI creatinine equation without a race factor to calculate theeGFR results. Performed By: #### B MP, MG, GFR, ADIFF, PHOS, ANEU, CBC, HFP ####[place] [address] .NEUABSon 05-08-2024 Neutrophil, Absolute 13.0 10 3/mcL High 2.3-8.1 [facility] Comment on above: Performed By: #### B MP, MG, GFR, ADIFF, PHOS, ANEU, CBC, HFP ####[place] [address] BMPon 05-08-2024 BUN/Creatinine Ratio 32.5 ratio High 10.0-22.0 [facility] Comment on above: Performed By: #### B MP, MG, GFR, ADIFF, PHOS, ANEU, CBC, HFP ####[place] [address] Calcium [Mass/Vol] 9.1 mg/dL Normal 8.7-10.4 [facility] Comment on above: Performed By: #### B MP, MG, GFR, ADIFF, PHOS, ANEU, CBC, HFP ####[place] [address] Chloride [Moles/Vol] 103 mmol/L Normal 98-110 [facility] Comment on above: Performed By: #### B MP, MG, GFR, ADIFF, PHOS, ANEU, CBC, HFP ####[place] [address] CO2 [Moles/Vol] 25 mmol/L Normal 22-32 [facility] Comment on above: Performed By: #### B MP, MG, GFR, ADIFF, PHOS, ANEU, CBC, HFP ####[place] [address] Creatinine [Mass/Vol] 1.57 mg/dL High 0.60-1.40 [facility] Comment on above: Result Comment: Test ing performed on XillianTV analyzer using enzymatic creatinine methodology. Performed By: #### B MP, MG, GFR, ADIFF, PHOS, ANEU, CBC, HFP ####[place] [address] Electrolyte Balance 9.0 mEq/L Normal 4.0-15.0 [facility] Comment on above: Performed By: #### B MP, MG, GFR, ADIFF, PHOS, ANEU, CBC, HFP ####[place] [address] Glucose [Mass/Vol] 108 mg/dL Normal 82-115 [facility] Comment on above: Performed By: #### B MP, MG, GFR, ADIFF, PHOS, ANEU, CBC, HFP ####[place] [address] Potassium [Moles/Vol] 3.9 mmol/L Normal 3.5-5.0 [facility] Comment on above: Performed By: #### B MP, MG, GFR, ADIFF, PHOS, ANEU, CBC, HFP ####[place] [address] Sodium [Moles/Vol] 137 mmol/L Normal 136-145 [facility] Comment on above: Performed By: #### B MP, MG, GFR, ADIFF, PHOS, ANEU, CBC, HFP ####[place] [address] Urea nitrogen [Mass/Vol] 51.0 mg/dL High 8.0-22.0 [facility] Comment on above: Performed By: #### B MP, MG, GFR, ADIFF, PHOS, ANEU, CBC, HFP ####[place] [id number] CBCon 05-08-2024 Erythrocyte distribution width (RBC) [Ratio] 14.6 % Normal 11.5-15.5 [facility] Comment on above: Performed By: #### B MP, MG, GFR, ADIFF, PHOS, ANEU, CBC, HFP ####[place] [address] Hematocrit (Bld) [Volume fraction] 31.9 % Low 40.0-52.0 [facility] Comment on above: Performed By: #### B MP, MG, GFR, ADIFF, PHOS, ANEU, CBC, HFP ####[place] [address] Hgb 10.9 G/dL Low 13.0-17.5 [facility] Comment on above: Performed By: #### B MP, MG, GFR, ADIFF, PHOS, ANEU, CBC, HFP ####[place] [address] MCH (RBC) [Entitic mass] 30.7 pg Normal 27.0-33.0 [facility] Comment on above: Performed By: #### B MP, MG, GFR, ADIFF, PHOS, ANEU, CBC, HFP ####[place] [address] MCHC 34.2 G/dL Normal 32.0-36.0 [facility] Comment on above: Performed By: #### B MP, MG, GFR, ADIFF, PHOS, ANEU, CBC, HFP ####[place] [address] MCV (RBC) [Entitic vol] 89.7 fL Normal 81.0-100.0 [facility] Comment on above: Performed By: #### B MP, MG, GFR, ADIFF, PHOS, ANEU, CBC, HFP ####[place] [address] Platelet 190 10 3/mcL Normal 150-450 [facility] Comment on above: Performed By: #### B MP, MG, GFR, ADIFF, PHOS, ANEU, CBC, HFP ####[place] [address] Platelet mean volume (Bld) [Entitic vol] 9.9 fL Normal 6.4-10.5 [facility] Comment on above: Performed By: #### B MP, MG, GFR, ADIFF, PHOS, ANEU, CBC, HFP ####[place] [address] RBC 3.56 10 6/mcL Low 4.50-6.00 [facility] Comment on above: Performed By: #### B MP, MG, GFR, ADIFF, PHOS, ANEU, CBC, HFP ####[place] [id number] WBC 18.3 10 3/mcL High 4.5-10.8 [facility] Comment on above: Performed By: #### B MP, MG, GFR, ADIFF, PHOS, ANEU, CBC, HFP ####[address] [address] HFPon 05-08-2024 Bili Indirect 0.4 mg/dL Normal 0.1-10.0 [facility] Comment on above: Performed By: #### B MP, MG, GFR, ADIFF, PHOS, ANEU, CBC, HFP ####[place] [address] Albumin Level 2.8 G/dL Low 3.2-4.8 [facility] Comment on above: Performed By: #### B MP, MG, GFR, ADIFF, PHOS, ANEU, CBC, HFP ####[place] [address] Albumin/Globulin [Mass ratio] 0.7 {ratio} Low 0.9-1.6 [facility] Comment on above: Performed By: #### B MP, MG, GFR, ADIFF, PHOS, ANEU, CBC, HFP ####[place] [address] ALP [Catalytic activity/Vol] 96 U/L Normal 38-126 [facility] Comment on above: Performed By: #### B MP, MG, GFR, ADIFF, PHOS, ANEU, CBC, HFP ####[place] [address] ALT [Catalytic activity/Vol] 11 U/L Low 12-55 [facility] Comment on above: Performed By: #### B MP, MG, GFR, ADIFF, PHOS, ANEU, CBC, HFP ####[place] [address] AST [Catalytic activity/Vol] 34 U/L Normal 8-34 [facility] Comment on above: Performed By: #### B MP, MG, GFR, ADIFF, PHOS, ANEU, CBC, HFP ####[place] [address] Bili Direct 0.2 mg/dL Normal 0.0-0.4 [facility] Comment on above: Result Comment: Use of this assay is not recommended for patients undergoing treatment with eltrombopag due to the potential for falsely elevated results. Performed By: #### B MP, MG, GFR, ADIFF, PHOS, ANEU, CBC, HFP ####[place] [address] Bili Total 0.60 mg/dL Normal 0.20-1.20 [facility] Comment on above: Result Comment: Use of this assay is not recommended for patients undergoing treatment with eltrombopag due to the potential for falsely elevated results. Performed By: #### B MP, MG, GFR, ADIFF, PHOS, ANEU, CBC, HFP ####[place] [address] Globulin 4.0 G/dL High 1.5-3.8 [facility] Comment on above: Performed By: #### B MP, MG, GFR, ADIFF, PHOS, ANEU, CBC, HFP ####[place] [address] Total Protein 6.8 G/dL Normal 5.7-8.2 [facility] Comment on above: Performed By: #### B MP, MG, GFR, ADIFF, PHOS, ANEU, CBC, HFP ####[place] [address] MGon 05-08-2024 Magnesium [Mass/Vol] 2.3 mg/dL Normal 1.6-2.4 [facility] Comment on above: Performed By: #### B MP, MG, GFR, ADIFF, PHOS, ANEU, CBC, HFP ####[place] [address] OCC (LAB)on 05-08-2024 Occult Blood Fecal Negative Normal Negative [facility] Comment on above: Result Comment: This test utilizes the guaiac fecal blood method, which detects peroxidase activity (heme) indicating bleedingfrom stomach, small intestine, or large intestine. Ifbleeding from either upper or lower gastrointestinal tract is a clinical consideration, the [facility] recommends the use of both the guaiac fecal blood test and the Immunochemical fecal blood test. Performed By: #### O CC ####[place] [address] PHOSon 05-08-2024 Phosphate [Mass/Vol] 2.1 mg/dL Low 2.4-5.1 [facility] Comment on above: Result Comment: No te - New Reference Range in effect 19 Performed By: #### B MP, MG, GFR, ADIFF, PHOS, ANEU, CBC, HFP ####[place] [address] UAon 05-08-2024 Color (U) Yellow Normal [facility] Comment on above: Performed By: #### U A, UAMIC ####[place] [address] Glucose (U) [Mass/Vol] 100 mg/dL Abnormal Negative [facility] Comment on above: Performed By: #### U A, UAMIC ####[place] [address] Ketones Ql (U) Negative Normal Neg-Trace [facility] Comment on above: Performed By: #### U A, UAMIC ####[place] [address] UA Appear Cloudy Abnormal Clear [facility] Comment on above: Performed By: #### U A, UAMIC ####[place] [address] UA Blood Moderate Abnormal Neg-Trace [facility] Comment on above: Performed By: #### U A, UAMIC ####[place] [address] UA Leuk Est Negative Normal Negative [facility] Comment on above: Performed By: #### U A, UAMIC ####[place] [address] UA Nitrite Negative Normal Negative [facility] Comment on above: Performed By: #### U A, UAMIC ####[place] [id number] UA pH 5.0 Normal 5.0 - 8.0 [facility] Comment on above: Performed By: #### U A, UAMIC ####[place] [address] UA Protein 100 mg/dL Abnormal Negative [facility] Comment on above: Performed By: #### U A, UAMIC ####[place] [address] UA Spec Grav 1.015 Normal 1.006-1.029 [facility] Comment on above: Performed By: #### U A, UAMIC ####[place] [address] UA Specimen Type Clean Catch Normal [facility] Comment on above: Performed By: #### U A, UAMIC ####[place] [address] UA Urobilinogen 0.2 E.U./dL Normal 0.2-1.0 [facility] Comment on above: Performed By: #### U A, UAMIC ####[place] [address] Urobilinogen (U) [Mass/Vol] Negative Normal Neg-Trace [facility] Comment on above: Performed By: #### U A, UAMIC ####[place] [address] UAMICon 05-08-2024 UA Amorphus 2+ /hpf [facility] Comment on above: Performed By: #### U A, UAMIC ####[place] [address] UA RBC 0-2 Normal 0-2 [facility] Comment on above: Performed By: #### U A, UAMIC ####[place] [address] UA Squam Epithelial 0-2 Normal 0-20 [facility] Comment on above: Performed By: #### U A, UAMIC ####[place] [address] UA Uric Ac Crystals 1+ /hpf [facility] Comment on above: Performed By: #### U A, UAMIC ####[address] [address] UA WBC 0-5 Normal 0-5 [facility] Comment on above: Performed By: #### U A, UAMIC ####[address] [address] XR CHEST 1 VIEWon 05-08-2024 XR CHEST 1 VIEW Normal [facility] .Auto Diffon 05-07-2024 Basophil, Absolute 0.1 10 3/mcL Normal 0.0-0.3 [facility] Comment on above: Performed By: #### C BC, ADIFF, MG, PHOS, ANEU, GFR, BMP, HFP ####[address] [address] Basophils/100 WBC (Bld) 0.4 % Normal 0.0-2.5 [facility] Comment on above: Performed By: #### C BC, ADIFF, MG, PHOS, ANEU, GFR, BMP, HFP ####[address] [address] Eosinophil, Absolute 0.0 10 3/mcL Normal 0.0-0.[address] [facility] Comment on above: Performed By: #### C BC, ADIFF, MG, PHOS, ANEU, GFR, BMP, HFP ####[address] [address] Eosinophils/100 WBC (Bld) 0.3 % Normal 0.0-6.0 [facility] Comment on above: Performed By: #### C BC, ADIFF, MG, PHOS, ANEU, GFR, BMP, HFP ####[address] [address] Lymphocyte, Absolute 2.2 10 3/mcL Normal 0.9-4.[address] [facility] Comment on above: Performed By: #### C BC, ADIFF, MG, PHOS, ANEU, GFR, BMP, HFP ####[address] [address] Lymphocytes/100 WBC (Bld) 11.7 % Low 20.0-40.0 [facility] Comment on above: Performed By: #### C BC, ADIFF, MG, PHOS, ANEU, GFR, BMP, HFP ####[address] [address] Monocyte, Absolute 1.8 10 3/mcL High 0.1-1.4 [facility] Comment on above: Performed By: #### C BC, ADIFF, MG, PHOS, ANEU, GFR, BMP, HFP ####[address] [address] Monocytes/100 WBC (Bld) 9.5 % Normal 2.0-13.0 [facility] Comment on above: Performed By: #### C BC, ADIFF, MG, PHOS, ANEU, GFR, BMP, HFP ####[address] [address] Neutrophils/100 WBC (Bld) 78.1 % High 50.0-75.0 [facility] Comment on above: Performed By: #### C BC, ADIFF, MG, PHOS, ANEU, GFR, BMP, HFP ####[place] [address] .GFRon 05-07-2024 Estimated Glomerular Filtration Rate 56 ml/min/1.73sqm Normal [facility] Comment on above: Result Comment: Stag es of Chronic Kidney Disease (CKD)Stage Description eGFR(ml/min/1.73 sq.m.)CKD 1 Normal kidney function or >=90 normal kindney function with possible kidney damage (ex. Proteinuria)CKD 2 Kidney damage with mild loss 60-89 of kidney functionCKD 3a Mild to moderate loss of kidney 45-59 functionCKD 3b Moderate to severe loss of 30-44 of kindey function CKD 4 Severe loss of kidney function 15-29CKD 5 Kidney failure <15Note: (go live 2024) the eGFR calculation was updated to the KD-EPI creatinine equation without a race factor to calculate theeGFR results. Performed By: #### C BC, ADIFF, MG, PHOS, ANEU, GFR, BMP, HFP ####[place] [address] .NEUABSon 05-07-2024 Neutrophil, Absolute 14.6 10 3/mcL High 2.3-8.1 [facility] Comment on above: Performed By: #### C BC, ADIFF, MG, PHOS, ANEU, GFR, BMP, HFP ####[address] [address] BMPon 05-07-2024 BUN/Creatinine Ratio 23.9 ratio High 10.0-22.0 [facility] Comment on above: Performed By: #### C BC, ADIFF, MG, PHOS, ANEU, GFR, BMP, HFP ####[address] [address] Calcium [Mass/Vol] 9.1 mg/dL Normal 8.7-10.4 [facility] Comment on above: Performed By: #### C BC, ADIFF, MG, PHOS, ANEU, GFR, BMP, HFP ####[place] [address] Chloride [Moles/Vol] 105 mmol/L Normal 98-110 [facility] Comment on above: Performed By: #### C BC, ADIFF, MG, PHOS, ANEU, GFR, BMP, HFP ####[place] [id number] CO2 [Moles/Vol] 26 mmol/L Normal 22-32 [facility] Comment on above: Performed By: #### C BC, ADIFF, MG, PHOS, ANEU, GFR, BMP, HFP ####[place] [address] Creatinine [Mass/Vol] 1.34 mg/dL Normal 0.60-1.40 [facility] Comment on above: Result Comment: Test ing performed on XillianTV analyzer using enzymatic creatinine methodology. Performed By: #### C BC, ADIFF, MG, PHOS, ANEU, GFR, BMP, HFP ####[place] [address] Electrolyte Balance 6.0 mEq/L Normal 4.0-15.0 [facility] Comment on above: Performed By: #### C BC, ADIFF, MG, PHOS, ANEU, GFR, BMP, HFP ####[place] [address] Glucose [Mass/Vol] 127 mg/dL High 82-115 [facility] Comment on above: Performed By: #### C BC, ADIFF, MG, PHOS, ANEU, GFR, BMP, HFP ####[place] [address] Potassium [Moles/Vol] 4.2 mmol/L Normal 3.5-5.0 [facility] Comment on above: Performed By: #### C BC, ADIFF, MG, PHOS, ANEU, GFR, BMP, HFP ####[place] [address] Sodium [Moles/Vol] 137 mmol/L Normal 136-145 [facility] Comment on above: Performed By: #### C BC, ADIFF, MG, PHOS, ANEU, GFR, BMP, HFP ####[place] [address] Urea nitrogen [Mass/Vol] 32.0 mg/dL High 8.0-22.0 [facility] Comment on above: Performed By: #### C BC, ADIFF, MG, PHOS, ANEU, GFR, BMP, HFP ####[place] [address] CBCon 05-07-2024 Erythrocyte distribution width (RBC) [Ratio] 14.2 % Normal 11.5-15.5 [facility] Comment on above: Performed By: #### C BC, ADIFF, MG, PHOS, ANEU, GFR, BMP, HFP ####[place] [address] Hematocrit (Bld) [Volume fraction] 34.4 % Low 40.0-52.0 [facility] Comment on above: Performed By: #### C BC, ADIFF, MG, PHOS, ANEU, GFR, BMP, HFP ####[place] [address] Hgb 11.6 G/dL Low 13.0-17.5 [facility] Comment on above: Performed By: #### C BC, ADIFF, MG, PHOS, ANEU, GFR, BMP, HFP ####[place] [address] MCH (RBC) [Entitic mass] 30.4 pg Normal 27.0-33.0 [facility] Comment on above: Performed By: #### C BC, ADIFF, MG, PHOS, ANEU, GFR, BMP, HFP ####[place] [address] MCHC 33.9 G/dL Normal 32.0-36.0 [facility] Comment on above: Performed By: #### C BC, ADIFF, MG, PHOS, ANEU, GFR, BMP, HFP ####[place] [address] MCV (RBC) [Entitic vol] 89.6 fL Normal 81.0-100.0 [facility] Comment on above: Performed By: #### C BC, ADIFF, MG, PHOS, ANEU, GFR, BMP, HFP ####[place] [address] Platelet 149 10 3/mcL Low 150-450 [facility] Comment on above: Performed By: #### C BC, ADIFF, MG, PHOS, ANEU, GFR, BMP, HFP ####[place] [address] Platelet mean volume (Bld) [Entitic vol] 10.2 fL Normal 6.4-10.5 [facility] Comment on above: Performed By: #### C BC, ADIFF, MG, PHOS, ANEU, GFR, BMP, HFP ####[place] [address] RBC 3.83 10 6/mcL Low 4.50-6.00 [facility] Comment on above: Performed By: #### C BC, ADIFF, MG, PHOS, ANEU, GFR, BMP, HFP ####[place] [address] WBC 18.7 10 3/mcL High 4.5-10.8 [facility] Comment on above: Performed By: #### C BC, ADIFF, MG, PHOS, ANEU, GFR, BMP, HFP ####[place] [address] HFPon 05-07-2024 Bili Indirect 0.3 mg/dL Normal 0.1-10.0 [facility] Comment on above: Performed By: #### C BC, ADIFF, MG, PHOS, ANEU, GFR, BMP, HFP ####[place] [address] Albumin Level 2.8 G/dL Low 3.2-4.8 [facility] Comment on above: Performed By: #### C BC, ADIFF, MG, PHOS, ANEU, GFR, BMP, HFP ####[place] [address] Albumin/Globulin [Mass ratio] 0.7 {ratio} Low 0.9-1.6 [facility] Comment on above: Performed By: #### C BC, ADIFF, MG, PHOS, ANEU, GFR, BMP, HFP ####[place] [address] ALP [Catalytic activity/Vol] 95 U/L Normal 38-126 [facility] Comment on above: Performed By: #### C BC, ADIFF, MG, PHOS, ANEU, GFR, BMP, HFP ####[place] [address] ALT [Catalytic activity/Vol] 11 U/L Low 12-55 [facility] Comment on above: Performed By: #### C BC, ADIFF, MG, PHOS, ANEU, GFR, BMP, HFP ####[place] [address] AST [Catalytic activity/Vol] 42 U/L High 8-34 [facility] Comment on above: Performed By: #### C BC, ADIFF, MG, PHOS, ANEU, GFR, BMP, HFP ####[place] [address] Bili Direct 0.2 mg/dL Normal 0.0-0.4 [facility] Comment on above: Result Comment: Use of this assay is not recommended for patients undergoing treatment with eltrombopag due to the potential for falsely elevated results. Performed By: #### C BC, ADIFF, MG, PHOS, ANEU, GFR, BMP, HFP ####[place] [address] Bili Total 0.50 mg/dL Normal 0.20-1.20 [facility] Comment on above: Result Comment: Use of this assay is not recommended for patients undergoing treatment with eltrombopag due to the potential for falsely elevated results. Performed By: #### C BC, ADIFF, MG, PHOS, ANEU, GFR, BMP, HFP ####[place] [address] Globulin 3.8 G/dL Normal 1.5-3.8 [facility] Comment on above: Performed By: #### C BC, ADIFF, MG, PHOS, ANEU, GFR, BMP, HFP ####[place] [address] Total Protein 6.6 G/dL Normal 5.7-8.2 [facility] Comment on above: Performed By: #### C BC, ADIFF, MG, PHOS, ANEU, GFR, BMP, HFP ####[place] [address] MGon 05-07-2024 Magnesium [Mass/Vol] 2.3 mg/dL Normal 1.6-2.4 [facility] Comment on above: Performed By: #### C BC, ADIFF, MG, PHOS, ANEU, GFR, BMP, HFP ####[place] [address] PHOSon 05-07-2024 Phosphate [Mass/Vol] 1.9 mg/dL Low 2.4-5.1 [facility] Comment on above: Result Comment: No te - New Reference Range in effect 19 Performed By: #### C BC, ADIFF, MG, PHOS, ANEU, GFR, BMP, HFP ####[place] [address] XR CHEST 1 VIEWon 05-07-2024 XR CHEST 1 VIEW Normal [facility] .Auto Diffon 02-27-2025 Basophil, Absolute 0.1 10 3/mcL Normal 0.0-0.3 [facility] Comment on above: Performed By: #### C BC, ANEU, ADIFF ####[address] [address] Basophils/100 WBC (Bld) 0.6 % Normal 0.0-2.5 [facility] Comment on above: Performed By: #### C BC, ANEU, ADIFF ####[address] [address] Eosinophil, Absolute 0.0 10 3/mcL Normal 0.0-0.[address] [facility] Comment on above: Performed By: #### C BC, ANEU, ADIFF ####[address] [address] Eosinophils/100 WBC (Bld) 0.1 % Normal 0.0-6.0 [facility] Comment on above: Performed By: #### C BC, ANEU, ADIFF ####[address] [address] Lymphocyte, Absolute 1.6 10 3/mcL Normal 0.9-4.[address] [facility] Comment on above: Performed By: #### C BC, ANEU, ADIFF ####[address] [address] Lymphocytes/100 WBC (Bld) 8.9 % Low 20.0-40.0 [facility] Comment on above: Performed By: #### C BC, ANEU, ADIFF ####[address] [address] Monocyte, Absolute 1.9 10 3/mcL High 0.1-1.4 [facility] Comment on above: Performed By: #### C BC, ANEU, ADIFF ####[address] [address] Monocytes/100 WBC (Bld) 10.4 % Normal 2.0-13.0 [facility] Comment on above: Performed By: #### C BC, ANEU, ADIFF ####[address] [address] Neutrophils/100 WBC (Bld) 80.0 % High 50.0-75.0 [facility] Comment on above: Performed By: #### C BC ANEU, ADIFF ####[place] [id number] .GFRon 05-06-2024 Estimated Glomerular Filtration Rate 53 ml/min/1.73sqm Normal [facility] Comment on above: Result Comment: Stag es of Chronic Kidney Disease (CKD)Stage Description eGFR(ml/min/1.73 sq.m.)CKD 1 Normal kidney function or >=90 normal kindney function with possible kidney damage (ex. Proteinuria)CKD 2 Kidney damage with mild loss 60-89 of kidney functionCKD 3a Mild to moderate loss of kidney 45-59 functionCKD 3b Moderate to severe loss of 30-44 of kindey function CKD 4 Severe loss of kidney function 15-29CKD 5 Kidney failure <15Note: (go live 2024) the eGFR calculation was updated to the KD-EPI creatinine equation without a race factor to calculate theeGFR results. Performed By: #### P HOS, GFR, CMP, HFP, MG ####[place] [address] .NEUABSon 05-06-2024 Neutrophil, Absolute 14.5 10 3/mcL High 2.3-8.1 [place] [facility] Comment on above: Performed By: #### C JUNAID HERNANDEZ, ADIFF ####[place] [address] CBCon 05-06-2024 Erythrocyte distribution width (RBC) [Ratio] 14.2 % Normal 11.5-15.5 [facility] Comment on above: Performed By: #### C BCJUNAID, ADIFF ####[place] [address] Hematocrit (Bld) [Volume fraction] 33.1 % Low 40.0-52.0 [facility] Comment on above: Performed By: #### C BCJUNAID, ADIFF ####[place] [address] Hgb 11.2 G/dL Low 13.0-17.5 [facility] Comment on above: Performed By: #### C BC, ANEU, ADIFF ####[place] [address] MCH (RBC) [Entitic mass] 30.6 pg Normal 27.0-33.0 [facility] Comment on above: Performed By: #### C BC, ANEU, ADIFF ####[place] [address] MCHC 33.9 G/dL Normal 32.0-36.0 [facility] Comment on above: Performed By: #### C BC, ANEU, ADIFF ####[place] [address] MCV (RBC) [Entitic vol] 90.4 fL Normal 81.0-100.0 [facility] Comment on above: Performed By: #### C MARY ANEU, ADIFF ####[place] [address] Platelet 131 10 3/mcL Low 150-450 [facility] Comment on above: Performed By: #### C MARY ANEU, ADIFF ####[place] [address] Platelet mean volume (Bld) [Entitic vol] 9.8 fL Normal 6.4-10.5 [facility] Comment on above: Performed By: #### C MARY ANEU, ADIFF ####[place] [address] RBC 3.67 10 6/mcL Low 4.50-6.00 [facility] Comment on above: Performed By: #### C MARY ANEU, ADIFF ####[place] [address] WBC 18.2 10 3/mcL High 4.5-10.8 [facility] Comment on above: Performed By: #### C MARY ANEU, ADIFF ####[place] [address] CMPon 05-06-2024 Albumin Level 2.8 G/dL Low 3.2-4.8 [facility] Comment on above: Performed By: #### P HOS, GFR, CMP, HFP, MG ####[address] [address] Albumin/Globulin [Mass ratio] 0.8 {ratio} Low 0.9-1.6 [facility] Comment on above: Performed By: #### P HOS, GFR, CMP, HFP, MG ####[address] [address] ALP [Catalytic activity/Vol] 85 U/L Normal 38-126 [facility] Comment on above: Performed By: #### P HOS, GFR, CMP, HFP, MG ####[place] [id number] ALT [Catalytic activity/Vol] 16 U/L Normal 12-55 [facility] Comment on above: Performed By: #### P HOS, GFR, CMP, HFP, MG ####[place] [id number] AST [Catalytic activity/Vol] 67 U/L High 8-34 [facility] Comment on above: Performed By: #### P HOS, GFR, CMP, HFP, MG ####[place] [address] Bili Total 0.60 mg/dL Normal 0.20-1.20 [facility] Comment on above: Result Comment: Use of this assay is not recommended for patients undergoing treatment with eltrombopag due to the potential for falsely elevated results. Performed By: #### P HOS, GFR, CMP, HFP, MG ####[place] [address] BUN/Creatinine Ratio 20.0 ratio Normal 10.0-22.0 [facility] Comment on above: Performed By: #### P HOS, GFR, CMP, HFP, MG ####[address] [address] Calcium [Mass/Vol] 8.8 mg/dL Normal 8.7-10.4 [facility] Comment on above: Performed By: #### P HOS, GFR, CMP, HFP, MG ####[place] [address] Chloride [Moles/Vol] 105 mmol/L Normal 98-110 [facility] Comment on above: Performed By: #### P HOS, GFR, CMP, HFP, MG ####[address] [address] CO2 [Moles/Vol] 24 mmol/L Normal 22-32 [facility] Comment on above: Performed By: #### P HOS, GFR, CMP, HFP, MG ####[place] [address] Creatinine [Mass/Vol] 1.40 mg/dL Normal 0.60-1.40 [facility] Comment on above: Result Comment: Test ing performed on XillianTV analyzer using enzymatic creatinine methodology. Performed By: #### P HOS, GFR, CMP, HFP, MG ####[place] [address] Electrolyte Balance 7.0 mEq/L Normal 4.0-15.0 [facility] Comment on above: Performed By: #### P HOS, GFR, CMP, HFP, MG ####[place] [id number] Globulin 3.4 G/dL Normal 1.5-3.8 [facility] Comment on above: Performed By: #### P HOS, GFR, CMP, HFP, MG ####[place] [address] Glucose [Mass/Vol] 133 mg/dL High 82-115 [facility] Comment on above: Performed By: #### P HOS, GFR, CMP, HFP, MG ####[place] [address] Potassium [Moles/Vol] 4.3 mmol/L Normal 3.5-5.0 [facility] Comment on above: Performed By: #### P HOS, GFR, CMP, HFP, MG ####[place] [id number] Sodium [Moles/Vol] 136 mmol/L Normal 136-145 [facility] Comment on above: Performed By: #### P HOS, GFR, CMP, HFP, MG ####[place] [address] Total Protein 6.2 G/dL Normal 5.7-8.2 [facility] Comment on above: Performed By: #### P HOS, GFR, CMP, HFP, MG ####[place] [address] Urea nitrogen [Mass/Vol] 28.0 mg/dL High 8.0-22.0 [facility] Comment on above: Performed By: #### P HOS, GFR, CMP, HFP, MG ####[place] [address] HFPon 05-06-2024 Bili Indirect 0.4 mg/dL Normal 0.1-10.0 [facility] Comment on above: Performed By: #### P HOS, GFR, CMP, HFP, MG ####[place] [address] Bili Direct 0.2 mg/dL Normal 0.0-0.4 [facility] Comment on above: Result Comment: Use of this assay is not recommended for patients undergoing treatment with eltrombopag due to the potential for falsely elevated results. Performed By: #### P HOS, GFR, CMP, HFP, MG ####[place] [address] Benjie 05-06-2024 Potassium [Moles/Vol] 4.1 mmol/L Normal 3.5-5.0 [facility] Comment on above: Performed By: #### K ####[place] [address] MGon 05-06-2024 Magnesium [Mass/Vol] 2.1 mg/dL Normal 1.6-2.4 [facility] Comment on above: Performed By: #### P HOS, GFR, CMP, HFP, MG ####[place] [address] PHOSon 05-06-2024 Phosphate [Mass/Vol] 2.0 mg/dL Low 2.4-5.1 [facility] Comment on above: Result Comment: No te - New Reference Range in effect 19 Performed By: #### P HOS, GFR, CMP, HFP, MG ####[address] [address] XR CHEST 1 VIEWon 05-06-2024 XR CHEST 1 VIEW Normal [facility] .Auto Diffon 05-05-2024 Basophil, Absolute 0.0 10 3/mcL Normal 0.0-0.3 [facility] Comment on above: Performed By: #### A DIFF, ANEU, CBC ####[address] [address] Basophils/100 WBC (Bld) 0.1 % Normal 0.0-2.5 [facility] Comment on above: Performed By: #### A DIFF, ANEU, CBC ####[address] [address] Eosinophil, Absolute 0.0 10 3/mcL Normal 0.0-0.[address] [facility] Comment on above: Performed By: #### A DIFF, ANEU, CBC ####[address] [address] Eosinophils/100 WBC (Bld) 0.0 % Normal 0.0-6.0 [facility] Comment on above: Performed By: #### A DIFF, ANEU, CBC ####[address] [address] Lymphocyte, Absolute 1.4 10 3/mcL Normal 0.9-4.[address] [facility] Comment on above: Performed By: #### A DIFF, ANEU, CBC ####[address] [address] Lymphocytes/100 WBC (Bld) 9.8 % Low 20.0-40.0 [facility] Comment on above: Performed By: #### A DIFF, ANEU, CBC ####[address] [address] Monocyte, Absolute 1.2 10 3/mcL Normal 0.1-1.4 [facility] Comment on above: Performed By: #### A DIFF, ANEU, CBC ####[address] [address] Monocytes/100 WBC (Bld) 8.8 % Normal 2.0-13.0 [facility] Comment on above: Performed By: #### A DIFF, ANEU, CBC ####[place] [address] Neutrophils/100 WBC (Bld) 81.3 % High 50.0-75.0 [facility] Comment on above: Performed By: #### A DIFF, ANEU, CBC ####[place] [address] .GFRon 05-05-2024 Estimated Glomerular Filtration Rate 60 ml/min/1.73sqm Normal [facility] Comment on above: Result Comment: Stag es of Chronic Kidney Disease (CKD)Stage Description eGFR(ml/min/1.73 sq.m.)CKD 1 Normal kidney function or >=90 normal kindney function with possible kidney damage (ex. Proteinuria)CKD 2 Kidney damage with mild loss 60-89 of kidney functionCKD 3a Mild to moderate loss of kidney 45-59 functionCKD 3b Moderate to severe loss of 30-44 of kindey function CKD 4 Severe loss of kidney function 15-29CKD 5 Kidney failure <15Note: (go live 2024) the eGFR calculation was updated to the KD-EPI creatinine equation without a race factor to calculate theeGFR results. Performed By: #### M G, HFP, GFR, PHOS, CMP ####[place] [address] .NEUABSon 05-05-2024 Neutrophil, Absolute 11.3 10 3/mcL High 2.3-8.1 [facility] Comment on above: Performed By: #### A DIFF, ANEU, CBC ####[place] [address] CBCon 05-05-2024 Erythrocyte distribution width (RBC) [Ratio] 14.1 % Normal 11.5-15.5 [facility] Comment on above: Performed By: #### A DIFF, ANEU, CBC ####[place] [address] Hematocrit (Bld) [Volume fraction] 33.2 % Low 40.0-52.0 [facility] Comment on above: Performed By: #### A DIFF, ANEU, CBC ####[place] [address] Hgb 11.3 G/dL Low 13.0-17.5 [facility] Comment on above: Performed By: #### A DIFF, ANEU, CBC ####[place] [address] MCH (RBC) [Entitic mass] 30.5 pg Normal 27.0-33.0 [facility] Comment on above: Performed By: #### A DIFF, ANEU, CBC ####[place] [address] MCHC 34.1 G/dL Normal 32.0-36.0 [facility] Comment on above: Performed By: #### A DIFF, ANEU, CBC ####[place] [address] MCV (RBC) [Entitic vol] 89.7 fL Normal 81.0-100.0 [facility] Comment on above: Performed By: #### A DIFF, ANEU, CBC ####[place] [address] Platelet 160 10 3/mcL Normal 150-450 [facility] Comment on above: Performed By: #### A DIFF, ANEU, CBC ####[place] [address] Platelet mean volume (Bld) [Entitic vol] 9.8 fL Normal 6.4-10.5 [facility] Comment on above: Performed By: #### A DIFF, ANEU, CBC ####[place] [address] RBC 3.70 10 6/mcL Low 4.50-6.00 [facility] Comment on above: Performed By: #### A DIFF, ANEU, CBC ####[place] [address] WBC 13.9 10 3/mcL High 4.5-10.8 [facility] Comment on above: Performed By: #### A DIFF, ANEU, CBC ####[place] [address] CMPon 05-05-2024 Albumin Level 3.2 G/dL Normal 3.2-4.8 [facility] Comment on above: Performed By: #### M G, HFP, GFR, PHOS, CMP ####[place] [address] Albumin/Globulin [Mass ratio] 1.0 {ratio} Normal 0.9-1.6 [facility] Comment on above: Performed By: #### M G, HFP, GFR, PHOS, CMP ####[address] [address] ALP [Catalytic activity/Vol] 78 U/L Normal 38-126 [facility] Comment on above: Performed By: #### M G, HFP, GFR, PHOS, CMP ####[place] [address] ALT [Catalytic activity/Vol] 30 U/L Normal 12-55 [facility] Comment on above: Performed By: #### M G, HFP, GFR, PHOS, CMP ####[place] [address] AST [Catalytic activity/Vol] 104 U/L High 8-34 [facility] Comment on above: Performed By: #### M G, HFP, GFR, PHOS, CMP ####[place] [address] Bili Total 0.30 mg/dL Normal 0.20-1.20 [facility] Comment on above: Result Comment: Use of this assay is not recommended for patients undergoing treatment with eltrombopag due to the potential for falsely elevated results. Performed By: #### M G, HFP, GFR, PHOS, CMP ####[place] [address] BUN/Creatinine Ratio 15.0 ratio Normal 10.0-22.0 [facility] Comment on above: Performed By: #### M G, HFP, GFR, PHOS, CMP ####[place] [address] Calcium [Mass/Vol] 8.8 mg/dL Normal 8.7-10.4 [facility] Comment on above: Performed By: #### M G, HFP, GFR, PHOS, CMP ####[address] [address] Chloride [Moles/Vol] 107 mmol/L Normal 98-110 [facility] Comment on above: Performed By: #### M G, HFP, GFR, PHOS, CMP ####[address] [address] CO2 [Moles/Vol] 24 mmol/L Normal 22-32 [facility] Comment on above: Performed By: #### M G, HFP, GFR, PHOS, CMP ####[place] [address] Creatinine [Mass/Vol] 1.27 mg/dL Normal 0.60-1.40 [facility] Comment on above: Result Comment: Test ing performed on XillianTV analyzer using enzymatic creatinine methodology. Performed By: #### M G, HFP, GFR, PHOS, CMP ####[place] [address] Electrolyte Balance 6.0 mEq/L Normal 4.0-15.0 [facility] Comment on above: Performed By: #### M G, HFP, GFR, PHOS, CMP ####[place] [address] Globulin 3.2 G/dL Normal 1.5-3.8 [facility] Comment on above: Performed By: #### M G, HFP, GFR, PHOS, CMP ####[place] [address] Glucose [Mass/Vol] 126 mg/dL High 82-115 [facility] Comment on above: Performed By: #### M G, HFP, GFR, PHOS, CMP ####[place] [address] Potassium [Moles/Vol] 4.5 mmol/L Normal 3.5-5.0 [facility] Comment on above: Performed By: #### M G, HFP, GFR, PHOS, CMP ####[place] [address] Sodium [Moles/Vol] 137 mmol/L Normal 136-145 [facility] Comment on above: Performed By: #### M G, HFP, GFR, PHOS, CMP ####[place] [address] Total Protein 6.4 G/dL Normal 5.7-8.2 [facility] Comment on above: Performed By: #### M G, HFP, GFR, PHOS, CMP ####[place] [address] Urea nitrogen [Mass/Vol] 19.0 mg/dL Normal 8.0-22.0 [facility] Comment on above: Performed By: #### M G, HFP, GFR, PHOS, CMP ####[place] [address] HFPon 05-05-2024 Bili Indirect 0.2 mg/dL Normal 0.1-10.0 [facility] Comment on above: Performed By: #### M G, HFP, GFR, PHOS, CMP ####[place] [address] Bili Direct 0.1 mg/dL Normal 0.0-0.4 [facility] Comment on above: Result Comment: Use of this assay is not recommended for patients undergoing treatment with eltrombopag due to the potential for falsely elevated results. Performed By: #### M G, HFP, GFR, PHOS, CMP ####[place] [address] MGon 05-05-2024 Magnesium [Mass/Vol] 2.2 mg/dL Normal 1.6-2.4 [facility] Comment on above: Performed By: #### M G, HFP, GFR, PHOS, CMP ####[place] [address] PHOSon 05-05-2024 Phosphate [Mass/Vol] 2.1 mg/dL Low 2.4-5.1 [facility] Comment on above: Result Comment: No te - New Reference Range in effect 19 Performed By: #### M G, HFP, GFR, PHOS, CMP ####[place] [address] VBG-Con 05-05-2024 BE Venous -2.5 mmol/L Normal -3.0-3.0 [facility] Comment on above: Order Comment: Draw via central line using ABG Syringe ONLY Performed By: #### V BGC ####[place] [address] CO2 [Moles/Vol] 24.6 mmol/L Normal 22.0-32.0 [facility] Comment on above: Order Comment: Draw via central line using ABG Syringe ONLY Performed By: #### V BGC ####[place] [address] HCO3 (Bld) [Moles/Vol] 23.3 mmol/L Normal 21.0-30.0 [facility] Comment on above: Order Comment: Draw via central line using ABG Syringe ONLY Performed By: #### V BGC ####[place] [address] Oxygen saturation in Blood 61.9 % Low 70.0-75.0 [facility] Comment on above: Order Comment: Draw via central line using ABG Syringe ONLY Performed By: #### V BGC ####[place] [address] pCO2 Jackson 43.9 mmHg Normal 41.0-51.0 [facility] Comment on above: Order Comment: Draw via central line using ABG Syringe ONLY Performed By: #### V BGC ####[place] [address] pH Venous 7.342 Low 7.380-7.460 [facility] Comment on above: Order Comment: Draw via central line using ABG Syringe ONLY Performed By: #### V BGC ####[place] [address] pO2 [place] 31.6 mmHg Low 35.0-40.0 [facility] Comment on above: Order Comment: Draw via central line using ABG Syringe ONLY Performed By: #### V BGC ####[place] [address] XR CHEST 1 VIEWon 05-05-2024 XR CHEST 1 VIEW Normal [facility] XR CHEST 1 VIEW Normal [facility] .Auto Diffon 05-04-2024 Basophil, Absolute 0.0 10 3/mcL Normal 0.0-0.3 [facility] Comment on above: Performed By: #### A ARTUR ZHU, CBC ####[address] [address] Basophils/100 WBC (Bld) 0.2 % Normal 0.0-2.5 [facility] Comment on above: Performed By: #### A ARTUR ZHU, CBC ####[address] [address] Eosinophil, Absolute 0.0 10 3/mcL Normal 0.0-0.[address] [facility] Comment on above: Performed By: #### A ARTUR ZHU, CBC ####[address] [address] Eosinophils/100 WBC (Bld) 0.1 % Normal 0.0-6.0 [facility] Comment on above: Performed By: #### A ARTUR ZHU, CBC ####[address] [address] Lymphocyte, Absolute 1.1 10 3/mcL Normal 0.9-4.[address] [facility] Comment on above: Performed By: #### A ARTUR ZHU, CBC ####[address] [address] Lymphocytes/100 WBC (Bld) 7.7 % Low 20.0-40.0 [facility] Comment on above: Performed By: #### A ARTUR ZHU, CBC ####[address] [address] Monocyte, Absolute 1.0 10 3/mcL Normal 0.1-1.4 [facility] Comment on above: Performed By: #### A ARTUR ZHU, CBC ####[address] [address] Monocytes/100 WBC (Bld) 7.2 % Normal 2.0-13.0 [facility] Comment on above: Performed By: #### A ARTUR ZHU, CBC ####[address] [address] Neutrophils/100 WBC (Bld) 84.8 % High 50.0-75.0 [facility] Comment on above: Performed By: #### A MARKO, ADIFF, CBC ####[address] [address] Basophil, Absolute 0.1 10 3/mcL Normal 0.0-0.3 [facility] Comment on above: Performed By: #### P HOS, BMP, CBC, ADIFF, GFR, ANEU, MG, CAION ####[address] [address] Basophils/100 WBC (Bld) 0.4 % Normal 0.0-2.5 [facility] Comment on above: Performed By: #### P HOS, BMP, CBC, ADIFF, GFR, ANEU, MG, CAION ####[address] [address] Eosinophil, Absolute 0.1 10 3/mcL Normal 0.0-0.[address] [facility] Comment on above: Performed By: #### P HOS, BMP, CBC, ADIFF, GFR, ANEU, MG, CAION ####[address] [address] Eosinophils/100 WBC (Bld) 0.9 % Normal 0.0-6.0 [facility] Comment on above: Performed By: #### P HOS, BMP, CBC, ADIFF, GFR, ANEU, MG, CAION ####[address] [address] Lymphocyte, Absolute 1.8 10 3/mcL Normal 0.9-4.[address] [facility] Comment on above: Performed By: #### P HOS, BMP, CBC, ADIFF, GFR, ANEU, MG, CAION ####[address] [address] Lymphocytes/100 WBC (Bld) 12.6 % Low 20.0-40.0 [facility] Comment on above: Performed By: #### P HOS, BMP, CBC, ADIFF, GFR, ANEU, MG, CAION ####[address] [address] Monocyte, Absolute 0.9 10 3/mcL Normal 0.1-1.4 [facility] Comment on above: Performed By: #### P HOS, BMP, CBC, ADIFF, GFR, ANEU, MG, CAION ####[address] [address] Monocytes/100 WBC (Bld) 6.2 % Normal 2.0-13.0 [facility] Comment on above: Performed By: #### P HOS, BMP, CBC, ADIFF, GFR, ANEU, MG, CAION ####[address] [address] Neutrophils/100 WBC (Bld) 79.9 % High 50.0-75.0 [facility] Comment on above: Performed By: #### P HOS, BMP, CBC, ADIFF, GFR, ANEU, MG, CAION ####[address] [address] Basophil, Absolute 0.0 10 3/mcL Normal 0.0-0.3 [facility] Comment on above: Performed By: #### A DIFF, BMP, ANEU, GFR, PHOS, CBC, MG, APTT, HFP ####[address] [address] Basophils/100 WBC (Bld) 0.3 % Normal 0.0-2.5 [facility] Comment on above: Performed By: #### A DIFF, BMP, ANEU, GFR, PHOS, CBC, MG, APTT, HFP ####[address] [address] Eosinophil, Absolute 0.1 10 3/mcL Normal 0.0-0.[address] [facility] Comment on above: Performed By: #### A DIFF, BMP, ANEU, GFR, PHOS, CBC, MG, APTT, HFP ####[address] [address] Eosinophils/100 WBC (Bld) 0.7 % Normal 0.0-6.0 [facility] Comment on above: Performed By: #### A DIFF, BMP, ANEU, GFR, PHOS, CBC, MG, APTT, HFP ####[address] [address] Lymphocyte, Absolute 2.6 10 3/mcL Normal 0.9-4.[address] [facility] Comment on above: Performed By: #### A DIFF, BMP, ANEU, GFR, PHOS, CBC, MG, APTT, HFP ####[address] [address] Lymphocytes/100 WBC (Bld) 19.7 % Low 20.0-40.0 [facility] Comment on above: Performed By: #### A DIFF, BMP, ANEU, GFR, PHOS, CBC, MG, APTT, HFP ####[address] [address] Monocyte, Absolute 1.0 10 3/mcL Normal 0.1-1.4 [facility] Comment on above: Performed By: #### A DIFF, BMP, ANEU, GFR, PHOS, CBC, MG, APTT, HFP ####[address] [address] Monocytes/100 WBC (Bld) 7.6 % Normal 2.0-13.0 [facility] Comment on above: Performed By: #### A DIFF, BMP, ANEU, GFR, PHOS, CBC, MG, APTT, HFP ####[address] [address] Neutrophils/100 WBC (Bld) 71.7 % Normal 50.0-75.0 [facility] Comment on above: Performed By: #### A DIFF, BMP, ANEU, GFR, PHOS, CBC, MG, APTT, HFP ####[address] [address] .GFRon 05-04-2024 Estimated Glomerular Filtration Rate 63 ml/min/1.73sqm Normal [facility] Comment on above: Result Comment: Stag es of Chronic Kidney Disease (CKD)Stage Description eGFR(ml/min/1.73 sq.m.)CKD 1 Normal kidney function or >=90 normal kindney function with possible kidney damage (ex. Proteinuria)CKD 2 Kidney damage with mild loss 60-89 of kidney functionCKD 3a Mild to moderate loss of kidney 45-59 functionCKD 3b Moderate to severe loss of 30-44 of kindey function CKD 4 Severe loss of kidney function 15-29CKD 5 Kidney failure <15Note: ( live 04/13/2024) the eGFR calculation was updated to the KD-EPI creatinine equation without a race factor to calculate theeGFR results. Performed By: #### P HOS, BMP, CBC, ADIFF, GFR, ANEU, MG, CAION ####[place] [address] Estimated Glomerular Filtration Rate 70 ml/min/1.73sqm Normal [facility] Comment on above: Result Comment: Stag es of Chronic Kidney Disease (CKD)Stage Description eGFR(ml/min/1.73 sq.m.)CKD 1 Normal kidney function or >=90 normal kindney function with possible kidney damage (ex. Proteinuria)CKD 2 Kidney damage with mild loss 60-89 of kidney functionCKD 3a Mild to moderate loss of kidney 45-59 functionCKD 3b Moderate to severe loss of 30-44 of kindey function CKD 4 Severe loss of kidney function 15-29CKD 5 Kidney failure <15Note: ( live 04/13/2024) the eGFR calculation was updated to the KD-EPI creatinine equation without a race factor to calculate theeGFR results. Performed By: #### A DIFF, BMP, ANEU, GFR, PHOS, CBC, MG, APTT, HFP ####[place] [address] .NEUABSon 05-04-2024 Neutrophil, Absolute 12.4 10 3/mcL High 2.3-8.1 [facility] Comment on above: Performed By: #### A MARKO, ADIFF, CBC ####[place] [address] Neutrophil, Absolute 11.5 10 3/mcL High 2.3-8.1 [facility] Comment on above: Performed By: #### P HOS, BMP, CBC, ADIFF, GFR, ANEU, MG, CAION ####[place] [address] Neutrophil, Absolute 9.4 10 3/mcL High 2.3-8.[address] [facility] Comment on above: Performed By: #### A DIFF, BMP, ANEU, GFR, PHOS, CBC, MG, APTT, HFP ####[address] [address] ABO/Rh (Gel)on 05-04-2024 ABO/Rh Interp Positive Invalid Interpretation Code [facility] Comment on above: Performed By: #### A BSGEL, ABOGEL ####[address] [address] ABS (Gel)on 05-04-2024 ABSC Interp (Gel) Negative Normal [facility] Comment on above: Performed By: #### A BSGEL, ABOGEL ####[address] [address] APTTon 05-04-2024 aPTT Coag (Bld) [Time] 29.4 s Normal 25.0-35.0 [facility] Comment on above: Result Comment: For Heparin anticoagulation therapy, the recommendedtherapeutic range is: 54-77 seconds (APTT Correlationwith Anti-Xa therapeutic range of 0.3-0.7 units/ml).PLEASE REFERENCE THE PHARMACY PROTOCOL FOR DOSING. Performed By: #### P LT, PRO, FIB, APTT ####[address] [address] aPTT Coag (Bld) [Time] 74.1 s High 25.0-35.0 [facility] Comment on above: Result Comment: For Heparin anticoagulation therapy, the recommendedtherapeutic range is: 54-77 seconds (APTT Correlationwith Anti-Xa therapeutic range of 0.3-0.7 units/ml).PLEASE REFERENCE THE PHARMACY PROTOCOL FOR DOSING. Performed By: #### A DIFF, BMP, ANEU, GFR, PHOS, CBC, MG, APTT, HFP ####[address] [id number] BGon 05-04-2024 Base excess Calc (Bld) [Moles/Vol] -3.6000 mmol/L Normal [facility] Comment on above: Order Comment: post extubation Performed By: #### B G ####[address] [address] CO2 [Moles/Vol] 22.5 mmol/L Normal 22.0-30.0 [facility] Comment on above: Order Comment: post extubation Performed By: #### B G ####[place] [address] HCO3 (Bld) [Moles/Vol] 21.3 mmol/L Normal 21.0-29.0 [place] [facility] Comment on above: Order Comment: post extubation Performed By: #### B G ####[place] [address] Oxygen (Bld) [Partial pressure] 113.8 mm[Hg] High 74.0-108.0 [facility] Comment on above: Order Comment: post extubation Performed By: #### B G ####[place] [address] Oxygen saturation in Blood 97.8 % High 92.0-96.0 [facility] Comment on above: Order Comment: post extubation Performed By: #### B G ####[place] [address] pCO2 38.3 mmHg Normal 32.0-46.0 [facility] Comment on above: Order Comment: post extubation Performed By: #### B G ####[place] [address] pH (Bld) 7.364 [pH] Low 7.380-7.460 [facility] Comment on above: Order Comment: post extubation Performed By: #### B G ####[place] [address] Base excess Calc (Bld) [Moles/Vol] -5.3000 mmol/L Normal [facility] Comment on above: Performed By: #### B G ####[place] [id number] CO2 [Moles/Vol] 20.3 mmol/L Low 22.0-30.0 [facility] Comment on above: Performed By: #### B G ####[place] [address] HCO3 (Bld) [Moles/Vol] 19.2 mmol/L Low 21.0-29.0 [facility] Comment on above: Performed By: #### B G ####[address] [address] Oxygen (Bld) [Partial pressure] 100.8 mm[Hg] Normal 74.0-108.0 [facility] Comment on above: Performed By: #### B G ####[address] [address] Oxygen saturation in Blood 97.1 % High 92.0-96.0 [facility] Comment on above: Performed By: #### B G ####[address] [address] pCO2 34.2 mmHg Normal 32.0-46.0 [facility] Comment on above: Performed By: #### B G ####[address] [address] pH (Bld) 7.368 [pH] Low 7.380-7.460 [facility] Comment on above: Performed By: #### B G ####[address] [address] Base excess Calc (Bld) [Moles/Vol] -5.1000 mmol/L Normal [facility] Comment on above: Performed By: #### B G ####[address] [address] CO2 [Moles/Vol] 22.2 mmol/L Normal 22.0-30.0 [facility] Comment on above: Performed By: #### B G ####[address] [address] HCO3 (Bld) [Moles/Vol] 20.9 mmol/L Low 21.0-29.0 [facility] Comment on above: Performed By: #### B G ####[address] [address] Oxygen (Bld) [Partial pressure] 96.7 mm[Hg] Normal 74.0-108.0 [facility] Comment on above: Performed By: #### B G ####[place] [id number] Oxygen saturation in Blood 96.5 % High 92.0-96.0 [facility] Comment on above: Performed By: #### B G ####[address] [address] pCO2 42.5 mmHg Normal 32.0-46.0 [facility] Comment on above: Performed By: #### B G ####[address] [address] pH (Bld) 7.309 [pH] Low 7.380-7.460 [facility] Comment on above: Performed By: #### B G ####[address] [address] Base excess Calc (Bld) [Moles/Vol] -5.2000 mmol/L Normal [facility] Comment on above: Performed By: #### B G ####[place] [address] CO2 [Moles/Vol] 22.1 mmol/L Normal 22.0-30.0 [facility] Comment on above: Performed By: #### B G ####[place] [id number] HCO3 (Bld) [Moles/Vol] 20.8 mmol/L Low 21.0-29.0 [facility] Comment on above: Performed By: #### B G ####[place] [id number] Oxygen (Bld) [Partial pressure] 191.8 mm[Hg] High 74.0-108.0 [facility] Comment on above: Performed By: #### B G ####[place] [address] Oxygen saturation in Blood 99.0 % High 92.0-96.0 [facility] Comment on above: Performed By: #### B G ####[place] [id number] pCO2 42.3 mmHg Normal 32.0-46.0 [facility] Comment on above: Performed By: #### B G ####[place] [id number] pH (Bld) 7.310 [pH] Low 7.380-7.460 [facility] Comment on above: Performed By: #### B G ####[place] [address] BGRPon 05-04-2024 Base Excess - POC -5.0 mmol/L Normal [facility] Comment on above: Performed By: #### H GBRP, BGRP, CLRP, NARP, GLURP, CARP, KRP, HCTRP ####[place] [address] CO2 [Moles/Vol] 21.9 mmol/L Low 22.0-30.0 [facility] Comment on above: Performed By: #### H GBRP, BGRP, CLRP, NARP, GLURP, CARP, KRP, HCTRP ####[place] [address] HCO3 (Bld) [Moles/Vol] 20.6 mmol/L Low 21.0-29.0 [facility] Comment on above: Performed By: #### H GBRP, BGRP, CLRP, NARP, GLURP, CARP, KRP, HCTRP ####[place] [address] Oxygen saturation in Blood 99.2 % High 92.0-96.0 [facility] Comment on above: Performed By: #### H GBRP, BGRP, CLRP, NARP, GLURP, CARP, KRP, HCTRP ####[place] [address] PCO2 - POC 40.4 mmHg Normal 32.0-46.0 [facility] Comment on above: Performed By: #### H GBRP, BGRP, CLRP, NARP, GLURP, CARP, KRP, HCTRP ####[place] [address] pH (poct) - POC 7.326 Low 7.380-7.460 [facility] Comment on above: Performed By: #### H GBRP, BGRP, CLRP, NARP, GLURP, CARP, KRP, HCTRP ####[place] [id number] PO2 - POC 334.0 mmHg High 74.0-108.0 [facility] Comment on above: Performed By: #### H GBRP, BGRP, CLRP, NARP, GLURP, CARP, KRP, HCTRP ####[place] [address] Base Excess - POC -5.8 mmol/L Normal [facility] Comment on above: Performed By: #### G LURP, BGRP, NARP, KRP, CARP, HCTRP, CLRP, HGBRP ####[place] [id number] CO2 [Moles/Vol] 20.8 mmol/L Low 22.0-30.0 [facility] Comment on above: Performed By: #### G LURP, BGRP, NARP, KRP, CARP, HCTRP, CLRP, HGBRP ####[place] [id number] HCO3 (Bld) [Moles/Vol] 19.6 mmol/L Low 21.0-29.0 [facility] Comment on above: Performed By: #### G LURP, BGRP, NARP, KRP, CARP, HCTRP, CLRP, HGBRP ####[place] [address] Oxygen saturation in Blood 99.3 % High 92.0-96.0 [facility] Comment on above: Performed By: #### G LURP, BGRP, NARP, KRP, CARP, HCTRP, CLRP, HGBRP ####[place] [id number] PCO2 - POC 38.2 mmHg Normal 32.0-46.0 [facility] Comment on above: Performed By: #### G LURP, BGRP, NARP, KRP, CARP, HCTRP, CLRP, HGBRP ####[place] [id number] pH (poct) - POC 7.329 Low 7.380-7.460 [facility] Comment on above: Performed By: #### G LURP, BGRP, NARP, KRP, CARP, HCTRP, CLRP, HGBRP ####[place] [address] PO2 - POC 326.6 mmHg High 74.0-108.0 [facility] Comment on above: Performed By: #### G LURP, BGRP, NARP, KRP, CARP, HCTRP, CLRP, HGBRP ####[place] [id number] Base Excess - POC -3.4 mmol/L Normal [facility] Comment on above: Performed By: #### C KUN, NARP, CLRP, BGRP, KRP, GLURP, HCTRP, HGBRP ####[place] [address] CO2 [Moles/Vol] 23.7 mmol/L Normal 22.0-30.0 [facility] Comment on above: Performed By: #### C KUN, NARP, CLRP, BGRP, KRP, GLURP, HCTRP, HGBRP ####[place] [address] HCO3 (Bld) [Moles/Vol] 22.4 mmol/L Normal 21.0-29.0 [facility] Comment on above: Performed By: #### C KUN, NARP, CLRP, BGRP, KRP, GLURP, HCTRP, HGBRP ####[place] [address] Oxygen saturation in Blood 99.3 % High 92.0-96.0 [facility] Comment on above: Performed By: #### C KUN, NARP, CLRP, BGRP, KRP, GLURP, HCTRP, HGBRP ####[place] [address] PCO2 - POC 43.0 mmHg Normal 32.0-46.0 [facility] Comment on above: Performed By: #### C KUN, NARP, CLRP, BGRP, KRP, GLURP, HCTRP, HGBRP ####[place] [address] pH (poct) - POC 7.334 Low 7.380-7.460 [facility] Comment on above: Performed By: #### C KUN, NARP, CLRP, BGRP, KRP, GLURP, HCTRP, HGBRP ####[place] [address] PO2 - POC 332.6 mmHg High 74.0-108.0 [facility] Comment on above: Performed By: #### C KUN, NARP, CLRP, BGRP, KRP, GLURP, HCTRP, HGBRP ####[place] [address] BMPon 05-04-2024 BUN/Creatinine Ratio 15.7 ratio Normal 10.0-22.0 [facility] Comment on above: Performed By: #### P HOS, BMP, CBC, ADIFF, GFR, ANEU, MG, CAION ####[place] [address] Calcium [Mass/Vol] 9.2 mg/dL Normal 8.7-10.4 [facility] Comment on above: Performed By: #### P HOS, BMP, CBC, ADIFF, GFR, ANEU, MG, CAION ####[place] [address] Chloride [Moles/Vol] 106 mmol/L Normal 98-110 [facility] Comment on above: Performed By: #### P HOS, BMP, CBC, ADIFF, GFR, ANEU, MG, CAION ####[place] [address] CO2 [Moles/Vol] 23 mmol/L Normal 22-32 [facility] Comment on above: Performed By: #### P HOS, BMP, CBC, ADIFF, GFR, ANEU, MG, CAION ####[place] [address] Creatinine [Mass/Vol] 1.21 mg/dL Normal 0.60-1.40 [facility] Comment on above: Result Comment: Test ing performed on XillianTV analyzer using enzymatic creatinine methodology. Performed By: #### P HOS, BMP, CBC, ADIFF, GFR, ANEU, MG, CAION ####[place] [address] Electrolyte Balance 10.0 mEq/L Normal 4.0-15.0 [facility] Comment on above: Performed By: #### P HOS, BMP, CBC, ADIFF, GFR, ANEU, MG, CAION ####[place] [id number] Glucose [Mass/Vol] 145 mg/dL High 82-115 [facility] Comment on above: Performed By: #### P HOS, BMP, CBC, ADIFF, GFR, ANEU, MG, CAION ####[place] [address] Potassium [Moles/Vol] 4.9 mmol/L Normal 3.5-5.0 [facility] Comment on above: Performed By: #### P HOS, BMP, CBC, ADIFF, GFR, ANEU, MG, CAION ####[place] [address] Sodium [Moles/Vol] 139 mmol/L Normal 136-145 [facility] Comment on above: Performed By: #### P HOS, BMP, CBC, ADIFF, GFR, ANEU, MG, CAION ####[place] [address] Urea nitrogen [Mass/Vol] 19.0 mg/dL Normal 8.0-22.0 [facility] Comment on above: Performed By: #### P HOS, BMP, CBC, ADIFF, GFR, ANEU, MG, CAION ####[place] [address] BUN/Creatinine Ratio 16.2 ratio Normal 10.0-22.0 [facility] Comment on above: Performed By: #### A DIFF, BMP, ANEU, GFR, PHOS, CBC, MG, APTT, HFP ####[place] [id number] Calcium [Mass/Vol] 9.1 mg/dL Normal 8.7-10.4 [facility] Comment on above: Performed By: #### A DIFF, BMP, ANEU, GFR, PHOS, CBC, MG, APTT, HFP ####[address] [address] Chloride [Moles/Vol] 105 mmol/L Normal 98-110 [facility] Comment on above: Performed By: #### A DIFF, BMP, ANEU, GFR, PHOS, CBC, MG, APTT, HFP ####[address] [address] CO2 [Moles/Vol] 24 mmol/L Normal 22-32 [facility] Comment on above: Performed By: #### A DIFF, BMP, ANEU, GFR, PHOS, CBC, MG, APTT, HFP ####[address] [address] Creatinine [Mass/Vol] 1.11 mg/dL Normal 0.60-1.40 [facility] Comment on above: Result Comment: Test ing performed on XillianTV analyzer using enzymatic creatinine methodology. Performed By: #### A DIFF, BMP, ANEU, GFR, PHOS, CBC, MG, APTT, HFP ####[address] [address] Electrolyte Balance 9.0 mEq/L Normal 4.0-15.0 [facility] Comment on above: Performed By: #### A DIFF, BMP, ANEU, GFR, PHOS, CBC, MG, APTT, HFP ####[address] [address] Glucose [Mass/Vol] 126 mg/dL High 82-115 [facility] Comment on above: Performed By: #### A DIFF, BMP, ANEU, GFR, PHOS, CBC, MG, APTT, HFP ####[address] [address] Potassium [Moles/Vol] 4.2 mmol/L Normal 3.5-5.0 [facility] Comment on above: Performed By: #### A DIFF, BMP, ANEU, GFR, PHOS, CBC, MG, APTT, HFP ####[address] [address] Sodium [Moles/Vol] 138 mmol/L Normal 136-145 [facility] Comment on above: Performed By: #### A DIFF, BMP, ANEU, GFR, PHOS, CBC, MG, APTT, HFP ####[place] [address] Urea nitrogen [Mass/Vol] 18.0 mg/dL Normal 8.0-22.0 [facility] Comment on above: Performed By: #### A DIFF, BMP, ANEU, GFR, PHOS, CBC, MG, APTT, HFP ####[place] [address] CAIONon 05-04-2024 Calcium Ionized 1.23 mmol/L Normal 1.12-1.32 [facility] Comment on above: Performed By: #### P HOS, BMP, CBC, ADIFF, GFR, ANEU, MG, CAION ####[place] [address] CARPon 05-04-2024 Ionized Calcium - POC 1.09 mmol/L Low 1.12-1.32 [facility] Comment on above: Performed By: #### H GBRP, BGRP, CLRP, NARP, GLURP, CARP, KRP, HCTRP ####[place] [address] Ionized Calcium - POC 1.12 mmol/L Normal 1.12-1.32 [facility] Comment on above: Performed By: #### G LURP, BGRP, NARP, KRP, CARP, HCTRP, CLRP, HGBRP ####[place] [address] Ionized Calcium - POC 1.14 mmol/L Normal 1.12-1.32 [facility] Comment on above: Performed By: #### C KUN, NARP, CLRP, BGRP, KRP, GLURP, HCTRP, HGBRP ####[place] [address] CBCon 05-04-2024 Erythrocyte distribution width (RBC) [Ratio] 14.3 % Normal 11.5-15.5 [facility] Comment on above: Performed By: #### A MARKO, ADIFF, CBC ####[place] [address] Hematocrit (Bld) [Volume fraction] 32.0 % Low 40.0-52.0 [facility] Comment on above: Performed By: #### A ARTUR ZHU, CBC ####[place] [address] Hgb 10.8 G/dL Low 13.0-17.5 [facility] Comment on above: Performed By: #### A ARTUR ZHU, CBC ####[place] [address] MCH (RBC) [Entitic mass] 30.3 pg Normal 27.0-33.0 [facility] Comment on above: Performed By: #### A ARTUR ZHU, CBC ####[place] [address] MCHC 33.7 G/dL Normal 32.0-36.0 [facility] Comment on above: Performed By: #### A ARTUR ZHU, CBC ####[place] [address] MCV (RBC) [Entitic vol] 89.8 fL Normal 81.0-100.0 [facility] Comment on above: Performed By: #### A ARTUR ZHU, CBC ####[place] [address] Platelet 174 10 3/mcL Normal 150-450 [facility] Comment on above: Performed By: #### A ARTUR ZHU, CBC ####[place] [address] Platelet mean volume (Bld) [Entitic vol] 9.5 fL Normal 6.4-10.5 [facility] Comment on above: Performed By: #### A ARTUR ZHU, CBC ####[place] [address] RBC 3.56 10 6/mcL Low 4.50-6.00 [facility] Comment on above: Performed By: #### A ARTUR ZHU, CBC ####[place] [address] WBC 14.7 10 3/mcL High 4.5-10.8 [facility] Comment on above: Performed By: #### A MARKO, ADIFF, CBC ####[place] [address] Erythrocyte distribution width (RBC) [Ratio] 14.1 % Normal 11.5-15.5 [facility] Comment on above: Performed By: #### P HOS, BMP, CBC, ADIFF, GFR, ANEU, MG, CAION ####[place] [address] Hematocrit (Bld) [Volume fraction] 32.6 % Low 40.0-52.0 [facility] Comment on above: Performed By: #### P HOS, BMP, CBC, ADIFF, GFR, ANEU, MG, CAION ####[place] [address] Hgb 10.8 G/dL Low 13.0-17.5 [facility] Comment on above: Performed By: #### P HOS, BMP, CBC, ADIFF, GFR, ANEU, MG, CAION ####[place] [address] MCH (RBC) [Entitic mass] 29.9 pg Normal 27.0-33.0 [facility] Comment on above: Performed By: #### P HOS, BMP, CBC, ADIFF, GFR, ANEU, MG, CAION ####[place] [address] MCHC 33.1 G/dL Normal 32.0-36.0 [facility] Comment on above: Performed By: #### P HOS, BMP, CBC, ADIFF, GFR, ANEU, MG, CAION ####[place] [address] MCV (RBC) [Entitic vol] 90.3 fL Normal 81.0-100.0 [facility] Comment on above: Performed By: #### P HOS, BMP, CBC, ADIFF, GFR, ANEU, MG, CAION ####[place] [address] Platelet 180 10 3/mcL Normal 150-450 [facility] Comment on above: Performed By: #### P HOS, BMP, CBC, ADIFF, GFR, ANEU, MG, CAION ####[place] [address] Platelet mean volume (Bld) [Entitic vol] 10.1 fL Normal 6.4-10.5 [facility] Comment on above: Performed By: #### P HOS, BMP, CBC, ADIFF, GFR, ANEU, MG, CAION ####[place] [address] RBC 3.61 10 6/mcL Low 4.50-6.00 [facility] Comment on above: Performed By: #### P HOS, BMP, CBC, ADIFF, GFR, ANEU, MG, CAION ####[place] [address] WBC 14.3 10 3/mcL High 4.5-10.8 [facility] Comment on above: Performed By: #### P HOS, BMP, CBC, ADIFF, GFR, ANEU, MG, CAION ####[place] [address] Erythrocyte distribution width (RBC) [Ratio] 14.5 % Normal 11.5-15.5 [facility] Comment on above: Performed By: #### A DIFF, BMP, ANEU, GFR, PHOS, CBC, MG, APTT, HFP ####[place] [address] Hematocrit (Bld) [Volume fraction] 37.6 % Low 40.0-52.0 [facility] Comment on above: Performed By: #### A DIFF, BMP, ANEU, GFR, PHOS, CBC, MG, APTT, HFP ####[place] [address] Hgb 12.6 G/dL Low 13.0-17.5 [facility] Comment on above: Performed By: #### A DIFF, BMP, ANEU, GFR, PHOS, CBC, MG, APTT, HFP ####[place] [address] MCH (RBC) [Entitic mass] 30.0 pg Normal 27.0-33.0 [facility] Comment on above: Performed By: #### A DIFF, BMP, ANEU, GFR, PHOS, CBC, MG, APTT, HFP ####[place] [address] MCHC 33.6 G/dL Normal 32.0-36.0 [facility] Comment on above: Performed By: #### A DIFF, BMP, ANEU, GFR, PHOS, CBC, MG, APTT, HFP ####[place] [address] MCV (RBC) [Entitic vol] 89.3 fL Normal 81.0-100.0 [facility] Comment on above: Performed By: #### A DIFF, BMP, ANEU, GFR, PHOS, CBC, MG, APTT, HFP ####[place] [address] Platelet 228 10 3/mcL Normal 150-450 [facility] Comment on above: Performed By: #### A DIFF, BMP, ANEU, GFR, PHOS, CBC, MG, APTT, HFP ####[place] [address] Platelet mean volume (Bld) [Entitic vol] 9.8 fL Normal 6.4-10.5 [facility] Comment on above: Performed By: #### A DIFF, BMP, ANEU, GFR, PHOS, CBC, MG, APTT, HFP ####[place] [address] RBC 4.20 10 6/mcL Low 4.50-6.00 [facility] Comment on above: Performed By: #### A DIFF, BMP, ANEU, GFR, PHOS, CBC, MG, APTT, HFP ####[place] [address] WBC 13.1 10 3/mcL High 4.5-10.8 [facility] Comment on above: Performed By: #### A DIFF, BMP, ANEU, GFR, PHOS, CBC, MG, APTT, HFP ####[address] [address] CLRPon 05-04-2024 Chloride [Moles/Vol] 106 mmol/L Normal 98-110 [facility] Comment on above: Performed By: #### H GBRP, BGRP, CLRP, NARP, GLURP, CARP, KRP, HCTRP ####[address] [address] Chloride [Moles/Vol] 105 mmol/L Normal 98-110 [facility] Comment on above: Performed By: #### G LURP, BGRP, NARP, KRP, CARP, HCTRP, CLRP, HGBRP ####[address] [address] Chloride [Moles/Vol] 105 mmol/L Normal 98-110 [facility] Comment on above: Performed By: #### C KUN, NARP, CLRP, BGRP, KRP, GLURP, HCTRP, HGBRP ####[address] [address] CNPNon 05-04-2024 JALENN Telephone (HEMAWS) -- SALO NAGY ([id number]) 1950 M Date Time Provider Department 05/04/24 LUIS MIGUEL GUY During your visit today, we recorded the following information about you: Alaina Espino 05/04/2024 12:20 PM Signed Spouse called to cancel upcoming lab, office visit/treatment/inj due to patient currently at [facility] in [place]. Patient is to have open heart surgery. Spouse will inform office when patient is discharged. Meagan Caro RN 05/04/2024 1:42 PM Signed Thank you. I will make a note to follow up with this. Julia Caro RN Allergies As of Date: 05/04/2024 (No Known Allergies) Date Reviewed: 02/18/2024 Reviewed by: Emelina Westbrook Ma, MA - Fully Assessed Reason for Visit: Patient Update [[id number]] Prescriptions as of 06/01/2024 - enzalutamide (XTANDI) 40 mg Take 4 capsules (160mg) by mouth once daily. - tamsulosin (FLOMAX) 0.4 mg Take 1 capsule by mouth once daily - enzalutamide (XTANDI) 40 mg tablet Take 4 tablets (160mg) by mouth once daily as directed by physician. - pantoprazole DR (PROTONIX) 40 mg tablet Take 40 mg by mouth once daily. - fwihodcppyb-qerfufcfn-joqv nter (TRELEGY ELLIPTA) 200-62.5-25 mcg inhalation powder Inhale 1 Puff as instructed once daily. - B-complex with vitamin C (SUPER B COMPLEX-VITAMIN C ORAL) Take 1 tablet by mouth once daily. - triamcinolone acetonide (NASACORT AQ) 55 mcg nasal inhaler Use 2 Sprays in each nostril once daily. - aspirin, enteric coated (ASPIRIN, ENTERIC COATED) 81 mg EC tablet Take 1 tablet by mouth once daily. - hydroCHLOROthiazide (HYDRODIURIL, ESIDRIX) 12.5 mg tablet Take 12.5 mg by mouth once daily. - iv contrast (will be provided with radiology test) CT Chest W -Inject, intravenously, once for 1 dose.No IV access, insert saline lock prior to the beginning of sedation, infusion, injection of imaging exam. Discontinue saline lock post exam. If Pt. has a central line or IVAD, may access for administration according to line specific nursing protocol. Once exam is complete flush line and de-access according to line specific nursing protocol in the CT contrast administration guidelines link. - docusate sodium (COLACE) 100 mg capsule Take 1 capsule by mouth twice daily as needed. - rosuvastatin (CRESTOR) 5 mg tablet Take 5 mg by mouth once daily. - ramipril (ALTACE) 10 mg capsule Take 10 mg by mouth once daily. - metoprolol tartrate, short acting, (LOPRESSOR) 25 mg tablet TAKE 1/2 (ONE-HALF) TABLET BY MOUTH TWICE DAILY - calcium carbonate-vitamin D3 (OSCAL+D) 500 mg(1,250mg) -400 unit chewable tablet Take 1 tablet by mouth once daily. 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/18/2018 Panlobular emphysema (HCC) [J43.1] 09/07/2018 Claudication of both lower extremities (HCC) [I*09/07/2018 AAA (abdominal aortic aneurysm) without rupture*09/07/2018 Iliac aneurysm (HCC) [I72.3] 09/07/2018 Bilateral carotid artery stenosis [I65.23] 09/07/2018 Bone metastases (HCC) [C79.51] 01/14/2019 AAA (abdominal aortic aneurysm) (HCC) [I71.40] 10/29/2019 Acute urinary retention [R33.8] 10/30/2019 10/30/2019 Hypoxemia [R09.02] 08/28/2020 Acute pulmonary embolism without acute cor pulm*08/29/2020 Elevated LFTs [R79.89] 04/15/2022 Encounter Status:Closed by MEAGAN CARO on 05/04/24 Normal [facility] FIBon 05-04-2024 Fibrinogen 550 mg/dL Normal 250-560 [facility] Comment on above: Performed By: #### P LT, PRO, FIB, APTT ####[address] [address] GLURPon 05-04-2024 Glucose [Mass/Vol] 140 mg/dL High 82-115 [facility] Comment on above: Performed By: #### H GBRP, BGRP, CLRP, NARP, GLURP, CARP, KRP, HCTRP ####[address] [address] Glucose [Mass/Vol] 117 mg/dL High 82-115 [facility] Comment on above: Performed By: #### G LURP, BGRP, NARP, KRP, CARP, HCTRP, CLRP, HGBRP ####[address] [address] Glucose [Mass/Vol] 122 mg/dL High 82-115 [facility] Comment on above: Performed By: #### C KUN, NARP, CLRP, BGRP, KRP, GLURP, HCTRP, HGBRP ####[address] [address] HCTRPon 05-04-2024 Hematocrit (Bld) [Volume fraction] 35.0 % Low 42.0-52.0 [facility] Comment on above: Performed By: #### H GBRP, BGRP, CLRP, NARP, GLURP, CARP, KRP, HCTRP ####[place] [address] Hematocrit (Bld) [Volume fraction] 35.0 % Low 42.0-52.0 [facility] Comment on above: Performed By: #### G LURP, BGRP, NARP, KRP, CARP, HCTRP, CLRP, HGBRP ####[place] [address] Hematocrit (Bld) [Volume fraction] 38.0 % Low 42.0-52.0 [facility] Comment on above: Performed By: #### C KUN, NARP, CLRP, BGRP, KRP, GLURP, HCTRP, HGBRP ####[address] [address] HFPon 05-04-2024 Bili Indirect 0.2 mg/dL Normal 0.1-10.0 [facility] Comment on above: Performed By: #### H FP ####[place] [address] Albumin Level 3.0 G/dL Low 3.2-4.8 [facility] Comment on above: Performed By: #### H FP ####[place] [address] Albumin/Globulin [Mass ratio] 0.9 {ratio} Normal 0.9-1.6 [facility] Comment on above: Performed By: #### H FP ####[place] [address] ALP [Catalytic activity/Vol] 79 U/L Normal 38-126 [facility] Comment on above: Performed By: #### H FP ####[place] [address] ALT [Catalytic activity/Vol] 34 U/L Normal 12-55 [facility] Comment on above: Performed By: #### H FP ####[place] [address] AST [Catalytic activity/Vol] 122 U/L High 8-34 [facility] Comment on above: Performed By: #### H FP ####[place] [address] Bili Direct 0.1 mg/dL Normal 0.0-0.4 [facility] Comment on above: Result Comment: Use of this assay is not recommended for patients undergoing treatment with eltrombopag due to the potential for falsely elevated results. Performed By: #### H FP ####[place] [address] Bili Total 0.30 mg/dL Normal 0.20-1.20 [facility] Comment on above: Result Comment: Use of this assay is not recommended for patients undergoing treatment with eltrombopag due to the potential for falsely elevated results. Performed By: #### H FP ####[place] [address] Globulin 3.2 G/dL Normal 1.5-3.8 [facility] Comment on above: Performed By: #### H FP ####[place] [address] Total Protein 6.2 G/dL Normal 5.7-8.2 [facility] Comment on above: Performed By: #### H FP ####[place] [address] Bili Indirect 0.3 mg/dL Normal 0.1-10.0 [facility] Comment on above: Performed By: #### A DIFF, BMP, ANEU, GFR, PHOS, CBC, MG, APTT, HFP ####[place] [address] Albumin Level 3.2 G/dL Normal 3.2-4.8 [facility] Comment on above: Performed By: #### A DIFF, BMP, ANEU, GFR, PHOS, CBC, MG, APTT, HFP ####[place] [address] Albumin/Globulin [Mass ratio] 0.9 {ratio} Normal 0.9-1.6 [facility] Comment on above: Performed By: #### A DIFF, BMP, ANEU, GFR, PHOS, CBC, MG, APTT, HFP ####[place] [address] ALP [Catalytic activity/Vol] 94 U/L Normal 38-126 [facility] Comment on above: Performed By: #### A DIFF, BMP, ANEU, GFR, PHOS, CBC, MG, APTT, HFP ####[place] [address] ALT [Catalytic activity/Vol] 40 U/L Normal 12-55 [facility] Comment on above: Performed By: #### A DIFF, BMP, ANEU, GFR, PHOS, CBC, MG, APTT, HFP ####[place] [address] AST [Catalytic activity/Vol] 160 U/L High 8-34 [facility] Comment on above: Performed By: #### A DIFF, BMP, ANEU, GFR, PHOS, CBC, MG, APTT, HFP ####[place] [address] Bili Direct 0.1 mg/dL Normal 0.0-0.4 [facility] Comment on above: Result Comment: Use of this assay is not recommended for patients undergoing treatment with eltrombopag due to the potential for falsely elevated results. Performed By: #### A DIFF, BMP, ANEU, GFR, PHOS, CBC, MG, APTT, HFP ####[place] [address] Bili Total 0.40 mg/dL Normal 0.20-1.20 [facility] Comment on above: Result Comment: Use of this assay is not recommended for patients undergoing treatment with eltrombopag due to the potential for falsely elevated results. Performed By: #### A DIFF, BMP, ANEU, GFR, PHOS, CBC, MG, APTT, HFP ####[address] [address] Globulin 3.6 G/dL Normal 1.5-3.8 [facility] Comment on above: Performed By: #### A DIFF, BMP, ANEU, GFR, PHOS, CBC, MG, APTT, HFP ####[place] [address] Total Protein 6.8 G/dL Normal 5.7-8.2 [facility] Comment on above: Performed By: #### A DIFF, BMP, ANEU, GFR, PHOS, CBC, MG, APTT, HFP ####[place] [address] HGBRPon 05-04-2024 Hemoglobin (POC) 11.8 G/dL Low 13.0-17.5 [facility] Comment on above: Performed By: #### H GBRP, BGRP, CLRP, NARP, GLURP, CARP, KRP, HCTRP ####[place] [address] Hemoglobin (POC) 12.0 G/dL Low 13.0-17.5 [facility] Comment on above: Performed By: #### G LURP, BGRP, NARP, KRP, CARP, HCTRP, CLRP, HGBRP ####[place] [id number] Hemoglobin (POC) 13.0 G/dL Normal 13.0-17.5 [facility] Comment on above: Performed By: #### C KUN, NARP, CLRP, BGRP, KRP, GLURP, HCTRP, HGBRP ####[place] [address] KRPon 05-04-2024 Potassium [Moles/Vol] 4.9 mmol/L Normal 3.5-5.0 [facility] Comment on above: Performed By: #### H GBRP, BGRP, CLRP, NARP, GLURP, CARP, KRP, HCTRP ####[address] [address] Potassium [Moles/Vol] 4.8 mmol/L Normal 3.5-5.0 [facility] Comment on above: Performed By: #### G LURP, BGRP, NARP, KRP, CARP, HCTRP, CLRP, HGBRP ####[address] [address] Potassium [Moles/Vol] 4.3 mmol/L Normal 3.5-5.0 [facility] Comment on above: Performed By: #### C KUN, NARP, CLRP, BGRP, KRP, GLURP, HCTRP, HGBRP ####[place] [address] MGon 05-04-2024 Magnesium [Mass/Vol] 2.3 mg/dL Normal 1.6-2.4 [facility] Comment on above: Performed By: #### P HOS, BMP, CBC, ADIFF, GFR, ANEU, MG, CAION ####[place] [address] Magnesium [Mass/Vol] 2.3 mg/dL Normal 1.6-2.4 [facility] Comment on above: Performed By: #### A DIFF, BMP, ANEU, GFR, PHOS, CBC, MG, APTT, HFP ####[place] [id number] NARPon 05-04-2024 Sodium [Moles/Vol] 135 mmol/L Low 136-145 [facility] Comment on above: Performed By: #### H GBRP, BGRP, CLRP, NARP, GLURP, CARP, KRP, HCTRP ####[place] [id number] Sodium [Moles/Vol] 136 mmol/L Normal 136-145 [facility] Comment on above: Performed By: #### G LURP, BGRP, NARP, KRP, CARP, HCTRP, CLRP, HGBRP ####[place] [address] Sodium [Moles/Vol] 139 mmol/L Normal 136-145 [facility] Comment on above: Performed By: #### C KUN, NARP, CLRP, BGRP, KRP, GLURP, HCTRP, HGBRP ####[place] [address] PHOSon 05-04-2024 Phosphate [Mass/Vol] 3.4 mg/dL Normal 2.4-5.1 [facility] Comment on above: Result Comment: No te - New Reference Range in effect 19 Performed By: #### P HOS, BMP, CBC, ADIFF, GFR, ANEU, MG, CAION ####[place] [address] Phosphate [Mass/Vol] 2.9 mg/dL Normal 2.4-5.1 [facility] Comment on above: Result Comment: No te - New Reference Range in effect 19 Performed By: #### A DIFF, BMP, ANEU, GFR, PHOS, CBC, MG, APTT, HFP ####[place] [address] PLTon 05-04-2024 Platelet 180 10 3/mcL Normal 150-450 [facility] Comment on above: Performed By: #### P LT, PRO, FIB, APTT ####[place] [address] PROon 05-04-2024 INR Coag (PPP) [Relative time] 1.2 {INR} Normal [facility] Comment on above: Result Comment: The [employer] (CHEST, 1992, [id number])recommended therapeutic range for oral anticoagulant therapy is:LOW RISK: Prophylaxis of venous thrombosis INR: 2.0-3.0 Treatment of pulmonary embolism 2.0-3.0 Prevention of systemic embolism 2.0-3.0HIGH RISK: Mechanical prosthetic valves 2.5-3.5 Performed By: #### P LT, PRO, FIB, APTT ####[address] [address] PT Coag (PPP) [Time] 13.3 s Normal 9.0-14.4 [facility] Comment on above: Result Comment: Effe ctive 09/22/07, Protime results may be affected by some antibiotics (i.e. Ciprofloxacin, Azithromycin, Bactrim) which may potentiate the action of oral anticoagulants, with further increases in Protime/INR. Performed By: #### P LT, PRO, FIB, APTT ####[address] [address] Platelet (Product)on Platelet Product Ready Platelet Ready for Pickup Normal [facility] Comment on above: Order Comment: ON HO LD FOR CVOR Performed By: #### P LTP ####[address] [address] RBC (Product)on 05-04-2024 RBC Product Ready RBC Ready for Pickup Normal [facility] Comment on above: Performed By: #### R BCP ####[address] [address] XR CHEST 1 VIEWon 05-04-2024 XR CHEST 1 VIEW Normal [facility] .Auto Diffon 05-03-2024 Basophil, Absolute 0.1 10 3/mcL Normal 0.0-0.3 [facility] Comment on above: Performed By: #### B MP, ANEU, GFR, ADIFF, MG, CBC ####[address] [address] Basophils/100 WBC (Bld) 0.5 % Normal 0.0-2.5 [facility] Comment on above: Performed By: #### B MP, ANEU, GFR, ADIFF, MG, CBC ####[address] [address] Eosinophil, Absolute 0.1 10 3/mcL Normal 0.0-0.[address] [facility] Comment on above: Performed By: #### B MP, ANEU, GFR, ADIFF, MG, CBC ####[address] [address] Eosinophils/100 WBC (Bld) 0.8 % Normal 0.0-6.0 [facility] Comment on above: Performed By: #### B MP, ANEU, GFR, ADIFF, MG, CBC ####[address] [address] Lymphocyte, Absolute 2.7 10 3/mcL Normal 0.9-4.[address] [facility] Comment on above: Performed By: #### B MP, ANEU, GFR, ADIFF, MG, CBC ####[address] [address] Lymphocytes/100 WBC (Bld) 20.0 % Normal 20.0-40.0 [facility] Comment on above: Performed By: #### B MP, ANEU, GFR, ADIFF, MG, CBC ####[address] [address] Monocyte, Absolute 0.8 10 3/mcL Normal 0.1-1.4 [facility] Comment on above: Performed By: #### B MP, ANEU, GFR, ADIFF, MG, CBC ####[address] [address] Monocytes/100 WBC (Bld) 5.9 % Normal 2.0-13.0 [facility] Comment on above: Performed By: #### B MP, ANEU, GFR, ADIFF, MG, CBC ####[address] [address] Neutrophils/100 WBC (Bld) 72.8 % Normal 50.0-75.0 [facility] Comment on above: Performed By: #### B MP, ANEU, GFR, ADIFF, MG, CBC ####[address] [address] Basophil, Absolute 0.1 10 3/mcL Normal 0.0-0.3 [facility] Comment on above: Performed By: #### H FP, PHOS, GFR, MG, ADIFF, BMP, CBC, ANEU ####[address] [address] Basophils/100 WBC (Bld) 0.9 % Normal 0.0-2.5 [facility] Comment on above: Performed By: #### H FP, PHOS, GFR, MG, ADIFF, BMP, CBC, ANEU ####[address] [address] Eosinophil, Absolute 0.4 10 3/mcL Normal 0.0-0.[address] [facility] Comment on above: Performed By: #### H FP, PHOS, GFR, MG, ADIFF, BMP, CBC, ANEU ####[address] [address] Eosinophils/100 WBC (Bld) 3.6 % Normal 0.0-6.0 [facility] Comment on above: Performed By: #### H FP, PHOS, GFR, MG, ADIFF, BMP, CBC, ANEU ####[address] [address] Lymphocyte, Absolute 3.7 10 3/mcL Normal 0.9-4.[address] [facility] Comment on above: Performed By: #### H FP, PHOS, GFR, MG, ADIFF, BMP, CBC, ANEU ####[address] [address] Lymphocytes/100 WBC (Bld) 32.4 % Normal 20.0-40.0 [facility] Comment on above: Performed By: #### H FP, PHOS, GFR, MG, ADIFF, BMP, CBC, ANEU ####[address] [address] Monocyte, Absolute 0.9 10 3/mcL Normal 0.1-1.4 [facility] Comment on above: Performed By: #### H FP, PHOS, GFR, MG, ADIFF, BMP, CBC, ANEU ####[address] [address] Monocytes/100 WBC (Bld) 7.9 % Normal 2.0-13.0 [facility] Comment on above: Performed By: #### H FP, PHOS, GFR, MG, ADIFF, BMP, CBC, ANEU ####[address] [address] Neutrophils/100 WBC (Bld) 55.2 % Normal 50.0-75.0 [facility] Comment on above: Performed By: #### H FP, PHOS, GFR, MG, ADIFF, BMP, CBC, ANEU ####[place] [id number] .GFRon 05-03-2024 Estimated Glomerular Filtration Rate 66 ml/min/1.73sqm [facility] Comment on above: Result Comment: Stag es of Chronic Kidney Disease (CKD)Stage Description eGFR(ml/min/1.73 sq.m.)CKD 1 Normal kidney function or >=90 normal kindney function with possible kidney damage (ex. Proteinuria)CKD 2 Kidney damage with mild loss 60-89 of kidney functionCKD 3a Mild to moderate loss of kidney 45-59 functionCKD 3b Moderate to severe loss of 30-44 of kindey function CKD 4 Severe loss of kidney function 15-29CKD 5 Kidney failure <15Note: (go live 2024) the eGFR calculation was updated to the KD-EPI creatinine equation without a race factor to calculate theeGFR results. Performed By: #### B MP, ANEU, GFR, ADIFF, MG, CBC ####[place] [address] Estimated Glomerular Filtration Rate 51 ml/min/1.73sqm [facility] Comment on above: Result Comment: Stag es of Chronic Kidney Disease (CKD)Stage Description eGFR(ml/min/1.73 sq.m.)CKD 1 Normal kidney function or >=90 normal kindney function with possible kidney damage (ex. Proteinuria)CKD 2 Kidney damage with mild loss 60-89 of kidney functionCKD 3a Mild to moderate loss of kidney 45-59 functionCKD 3b Moderate to severe loss of 30-44 of kindey function CKD 4 Severe loss of kidney function 15-29CKD 5 Kidney failure <15Note: (go live 2024) the eGFR calculation was updated to the KD-EPI creatinine equation without a race factor to calculate theeGFR results. Performed By: #### H FP, PHOS, GFR, MG, ADIFF, BMP, CBC, ANEU ####[place] [address] .NEUABSon 05-03-2024 Neutrophil, Absolute 9.7 10 3/mcL High 2.3-8.[address] [facility] Comment on above: Performed By: #### B MP, ANEU, GFR, ADIFF, MG, CBC ####[place] [address] Neutrophil, Absolute 6.4 10 3/mcL Normal 2.3-8.[address] [facility] Comment on above: Performed By: #### H FP, PHOS, GFR, MG, ADIFF, BMP, CBC, ANEU ####[place] [address] APTTon 05-03-2024 aPTT Coag (Bld) [Time] 64.4 s High 25.0-35.0 [facility] Comment on above: Result Comment: For Heparin anticoagulation therapy, the recommendedtherapeutic range is: 54-77 seconds (APTT Correlationwith Anti-Xa therapeutic range of 0.3-0.7 units/ml).PLEASE REFERENCE THE PHARMACY PROTOCOL FOR DOSING. Performed By: #### A PTT ####[place] [address] aPTT Coag (Bld) [Time] 63.3 s High 25.0-35.0 [facility] Comment on above: Result Comment: For Heparin anticoagulation therapy, the recommendedtherapeutic range is: 54-77 seconds (APTT Correlationwith Anti-Xa therapeutic range of 0.3-0.7 units/ml).PLEASE REFERENCE THE PHARMACY PROTOCOL FOR DOSING. Performed By: #### A PTT ####[place] [address] aPTT Coag (Bld) [Time] 58.8 s High 25.0-35.0 [facility] Comment on above: Result Comment: For Heparin anticoagulation therapy, the recommendedtherapeutic range is: 54-77 seconds (APTT Correlationwith Anti-Xa therapeutic range of 0.3-0.7 units/ml).PLEASE REFERENCE THE PHARMACY PROTOCOL FOR DOSING. Performed By: #### A PTT ####[place] [address] BMPon 05-03-2024 BUN/Creatinine Ratio 17.1 ratio Normal 10.0-22.0 [facility] Comment on above: Performed By: #### B MP, ANEU, GFR, ADIFF, MG, CBC ####[address] [address] Calcium [Mass/Vol] 9.0 mg/dL Normal 8.7-10.4 [facility] Comment on above: Performed By: #### B MP, ANEU, GFR, ADIFF, MG, CBC ####[place] [id number] Chloride [Moles/Vol] 105 mmol/L Normal 98-110 [facility] Comment on above: Performed By: #### B MP, ANEU, GFR, ADIFF, MG, CBC ####[place] [id number] CO2 [Moles/Vol] 22 mmol/L Normal 22-32 [facility] Comment on above: Performed By: #### B MP, ANEU, GFR, ADIFF, MG, CBC ####[place] [address] Creatinine [Mass/Vol] 1.17 mg/dL Normal 0.60-1.40 [facility] Comment on above: Result Comment: Test ing performed on XillianTV analyzer using enzymatic creatinine methodology. Performed By: #### B MP, ANEU, GFR, ADIFF, MG, CBC ####[address] [address] Electrolyte Balance 8.0 mEq/L Normal 4.0-15.0 [facility] Comment on above: Performed By: #### B MP, ANEU, GFR, ADIFF, MG, CBC ####[place] [address] Glucose [Mass/Vol] 143 mg/dL High 82-115 [facility] Comment on above: Performed By: #### B MP, ANEU, GFR, ADIFF, MG, CBC ####[address] [address] Potassium [Moles/Vol] 4.4 mmol/L Normal 3.5-5.0 [facility] Comment on above: Performed By: #### B MP, ANEU, GFR, ADIFF, MG, CBC ####[address] [address] Sodium [Moles/Vol] 135 mmol/L Low 136-145 [facility] Comment on above: Performed By: #### B MP, ANEU, GFR, ADIFF, MG, CBC ####[address] [address] Urea nitrogen [Mass/Vol] 20.0 mg/dL Normal 8.0-22.0 [facility] Comment on above: Performed By: #### B MP, ANEU, GFR, ADIFF, MG, CBC ####[address] [address] BUN/Creatinine Ratio 16.7 ratio Normal 10.0-22.0 [facility] Comment on above: Performed By: #### H FP, PHOS, GFR, MG, ADIFF, BMP, CBC, ANEU ####[address] [address] Calcium [Mass/Vol] 9.2 mg/dL Normal 8.7-10.4 [facility] Comment on above: Performed By: #### H FP, PHOS, GFR, MG, ADIFF, BMP, CBC, ANEU ####[address] [address] Chloride [Moles/Vol] 104 mmol/L Normal 98-110 [facility] Comment on above: Performed By: #### H FP, PHOS, GFR, MG, ADIFF, BMP, CBC, ANEU ####[address] [address] CO2 [Moles/Vol] 24 mmol/L Normal 22-32 [facility] Comment on above: Performed By: #### H FP, PHOS, GFR, MG, ADIFF, BMP, CBC, ANEU ####[address] [address] Creatinine [Mass/Vol] 1.44 mg/dL High 0.60-1.40 [facility] Comment on above: Result Comment: Test ing performed on XillianTV analyzer using enzymatic creatinine methodology. Performed By: #### H FP, PHOS, GFR, MG, ADIFF, BMP, CBC, ANEU ####[place] [address] Electrolyte Balance 11.0 mEq/L Normal 4.0-15.0 [facility] Comment on above: Performed By: #### H FP, PHOS, GFR, MG, ADIFF, BMP, CBC, ANEU ####[place] [address] Glucose [Mass/Vol] 135 mg/dL High 82-115 [facility] Comment on above: Performed By: #### H FP, PHOS, GFR, MG, ADIFF, BMP, CBC, ANEU ####[place] [address] Potassium [Moles/Vol] 4.1 mmol/L Normal 3.5-5.0 [facility] Comment on above: Performed By: #### H FP, PHOS, GFR, MG, ADIFF, BMP, CBC, ANEU ####[place] [address] Sodium [Moles/Vol] 139 mmol/L Normal 136-145 [facility] Comment on above: Performed By: #### H FP, PHOS, GFR, MG, ADIFF, BMP, CBC, ANEU ####[place] [address] Urea nitrogen [Mass/Vol] 24.0 mg/dL High 8.0-22.0 [facility] Comment on above: Performed By: #### H FP, PHOS, GFR, MG, ADIFF, BMP, CBC, ANEU ####[place] [address] CBCon 05-03-2024 Erythrocyte distribution width (RBC) [Ratio] 14.2 % Normal 11.5-15.5 [facility] Comment on above: Performed By: #### B MP, ANEU, GFR, ADIFF, MG, CBC ####[place] [address] Hematocrit (Bld) [Volume fraction] 36.9 % Low 40.0-52.0 [facility] Comment on above: Performed By: #### B MP, ANEU, GFR, ADIFF, MG, CBC ####[place] [address] Hgb 12.6 G/dL Low 13.0-17.5 [facility] Comment on above: Performed By: #### B MP, ANEU, GFR, ADIFF, MG, CBC ####[place] [address] MCH (RBC) [Entitic mass] 30.0 pg Normal 27.0-33.0 [facility] Comment on above: Performed By: #### B MP, ANEU, GFR, ADIFF, MG, CBC ####[place] [address] MCHC 34.0 G/dL Normal 32.0-36.0 [facility] Comment on above: Performed By: #### B MP, ANEU, GFR, ADIFF, MG, CBC ####[place] [address] MCV (RBC) [Entitic vol] 88.3 fL Normal 81.0-100.0 [facility] Comment on above: Performed By: #### B MP, ANEU, GFR, ADIFF, MG, CBC ####[place] [address] Platelet 224 10 3/mcL Normal 150-450 [facility] Comment on above: Performed By: #### B MP, ANEU, GFR, ADIFF, MG, CBC ####[place] [address] Platelet mean volume (Bld) [Entitic vol] 9.1 fL Normal 6.4-10.5 [facility] Comment on above: Performed By: #### B MP, ANEU, GFR, ADIFF, MG, CBC ####[place] [address] RBC 4.18 10 6/mcL Low 4.50-6.00 [facility] Comment on above: Performed By: #### B MP, ANEU, GFR, ADIFF, MG, CBC ####[place] [address] WBC 13.3 10 3/mcL High 4.5-10.8 [facility] Comment on above: Performed By: #### B MP, ANEU, GFR, ADIFF, MG, CBC ####[place] [address] Erythrocyte distribution width (RBC) [Ratio] 14.4 % Normal 11.5-15.5 [facility] Comment on above: Performed By: #### H FP, PHOS, GFR, MG, ADIFF, BMP, CBC, ANEU ####[place] [address] Hematocrit (Bld) [Volume fraction] 38.0 % Low 40.0-52.0 [facility] Comment on above: Performed By: #### H FP, PHOS, GFR, MG, ADIFF, BMP, CBC, ANEU ####[place] [address] Hgb 12.8 G/dL Low 13.0-17.5 [facility] Comment on above: Performed By: #### H FP, PHOS, GFR, MG, ADIFF, BMP, CBC, ANEU ####[place] [address] MCH (RBC) [Entitic mass] 29.9 pg Normal 27.0-33.0 [facility] Comment on above: Performed By: #### H FP, PHOS, GFR, MG, ADIFF, BMP, CBC, ANEU ####[place] [address] MCHC 33.6 G/dL Normal 32.0-36.0 [facility] Comment on above: Performed By: #### H FP, PHOS, GFR, MG, ADIFF, BMP, CBC, ANEU ####[place] [address] MCV (RBC) [Entitic vol] 89.0 fL Normal 81.0-100.0 [facility] Comment on above: Performed By: #### H FP, PHOS, GFR, MG, ADIFF, BMP, CBC, ANEU ####[place] [address] Platelet 225 10 3/mcL Normal 150-450 [facility] Comment on above: Performed By: #### H FP, PHOS, GFR, MG, ADIFF, BMP, CBC, ANEU ####[place] [address] Platelet mean volume (Bld) [Entitic vol] 9.9 fL Normal 6.4-10.5 [facility] Comment on above: Performed By: #### H FP, PHOS, GFR, MG, ADIFF, BMP, CBC, ANEU ####[place] [address] RBC 4.27 10 6/mcL Low 4.50-6.00 [facility] Comment on above: Performed By: #### H FP, PHOS, GFR, MG, ADIFF, BMP, CBC, ANEU ####[place] [address] WBC 11.5 10 3/mcL High 4.5-10.8 [facility] Comment on above: Performed By: #### H FP, PHOS, GFR, MG, ADIFF, BMP, CBC, ANEU ####[place] [address] HFPon 05-03-2024 Bili Indirect Unable to Calculate Normal 0.1-10.[address] [facility] Comment on above: Result Comment: Unab le to calculate this test result accurately. Results used to calculate this test are outside the reportable range. Performed By: #### H FP, PHOS, GFR, MG, ADIFF, BMP, CBC, ANEU ####[place] [address] Albumin Level 3.1 G/dL Low 3.2-4.8 [facility] Comment on above: Performed By: #### H FP, PHOS, GFR, MG, ADIFF, BMP, CBC, ANEU ####[place] [address] Albumin/Globulin [Mass ratio] 0.8 {ratio} Low 0.9-1.6 [facility] Comment on above: Performed By: #### H FP, PHOS, GFR, MG, ADIFF, BMP, CBC, ANEU ####[place] [address] ALP [Catalytic activity/Vol] 91 U/L Normal 38-126 [facility] Comment on above: Performed By: #### H FP, PHOS, GFR, MG, ADIFF, BMP, CBC, ANEU ####[place] [address] ALT [Catalytic activity/Vol] 23 U/L Normal 12-55 [facility] Comment on above: Performed By: #### H FP, PHOS, GFR, MG, ADIFF, BMP, CBC, ANEU ####[place] [address] AST [Catalytic activity/Vol] 27 U/L Normal 8-34 [facility] Comment on above: Performed By: #### H FP, PHOS, GFR, MG, ADIFF, BMP, CBC, ANEU ####[place] [address] Bili Direct <0.1 Normal 0.0-0.4 [facility] Comment on above: Result Comment: Use of this assay is not recommended for patients undergoing treatment with eltrombopag due to the potential for falsely elevated results. Performed By: #### H FP, PHOS, GFR, MG, ADIFF, BMP, CBC, ANEU ####[place] [address] Bili Total 0.30 mg/dL Normal 0.20-1.20 [facility] Comment on above: Result Comment: Use of this assay is not recommended for patients undergoing treatment with eltrombopag due to the potential for falsely elevated results. Performed By: #### H FP, PHOS, GFR, MG, ADIFF, BMP, CBC, ANEU ####[place] [address] Globulin 3.8 G/dL Normal 1.5-3.8 [facility] Comment on above: Performed By: #### H FP, PHOS, GFR, MG, ADIFF, BMP, CBC, ANEU ####[place] [address] Total Protein 6.9 G/dL Normal 5.7-8.2 [facility] Comment on above: Performed By: #### H FP, PHOS, GFR, MG, ADIFF, BMP, CBC, ANEU ####[place] [address] MGon 05-03-2024 Magnesium [Mass/Vol] 2.3 mg/dL Normal 1.6-2.4 [facility] Comment on above: Performed By: #### B MP, ANEU, GFR, ADIFF, MG, CBC ####[place] [address] Magnesium [Mass/Vol] 2.2 mg/dL Normal 1.6-2.4 [facility] Comment on above: Performed By: #### H FP, PHOS, GFR, MG, ADIFF, BMP, CBC, ANEU ####[place] [address] PHOSon 05-03-2024 Phosphate [Mass/Vol] 2.7 mg/dL Normal 2.4-5.1 [facility] Comment on above: Result Comment: No te - New Reference Range in effect 19 Performed By: #### H FP, PHOS, GFR, MG, ADIFF, BMP, CBC, ANEU ####[place] [address] .Auto Diffon 05-02-2024 Basophil, Absolute 0.1 10 3/mcL Normal 0.0-0.3 [facility] Comment on above: Performed By: #### C BC, HFP, GFR, ADIFF, PHOS, BMP, ANEU, MG ####[place] [address] Basophils/100 WBC (Bld) 1.1 % Normal 0.0-2.5 [facility] Comment on above: Performed By: #### C BC, HFP, GFR, ADIFF, PHOS, BMP, ANEU, MG ####[place] [address] Eosinophil, Absolute 0.4 10 3/mcL Normal 0.0-0.[address] [facility] Comment on above: Performed By: #### C BC, HFP, GFR, ADIFF, PHOS, BMP, ANEU, MG ####[address] [address] Eosinophils/100 WBC (Bld) 4.2 % Normal 0.0-6.0 [facility] Comment on above: Performed By: #### C BC, HFP, GFR, ADIFF, PHOS, BMP, ANEU, MG ####[address] [address] Lymphocyte, Absolute 3.4 10 3/mcL Normal 0.9-4.[address] [facility] Comment on above: Performed By: #### C BC, HFP, GFR, ADIFF, PHOS, BMP, ANEU, MG ####[address] [address] Lymphocytes/100 WBC (Bld) 34.2 % Normal 20.0-40.0 [facility] Comment on above: Performed By: #### C BC, HFP, GFR, ADIFF, PHOS, BMP, ANEU, MG ####[address] [address] Monocyte, Absolute 0.7 10 3/mcL Normal 0.1-1.4 [facility] Comment on above: Performed By: #### C BC, HFP, GFR, ADIFF, PHOS, BMP, ANEU, MG ####[address] [address] Monocytes/100 WBC (Bld) 6.7 % Normal 2.0-13.0 [facility] Comment on above: Performed By: #### C BC, HFP, GFR, ADIFF, PHOS, BMP, ANEU, MG ####[address] [address] Neutrophils/100 WBC (Bld) 53.8 % Normal 50.0-75.0 [facility] Comment on above: Performed By: #### C BC, HFP, GFR, ADIFF, PHOS, BMP, ANEU, MG ####[address] [address] .GFRon 05-02-2024 Estimated Glomerular Filtration Rate 56 ml/min/1.73sqm Normal [facility] Comment on above: Result Comment: Stag es of Chronic Kidney Disease (CKD)Stage Description eGFR(ml/min/1.73 sq.m.)CKD 1 Normal kidney function or >=90 normal kindney function with possible kidney damage (ex. Proteinuria)CKD 2 Kidney damage with mild loss 60-89 of kidney functionCKD 3a Mild to moderate loss of kidney 45-59 functionCKD 3b Moderate to severe loss of 30-44 of kindey function CKD 4 Severe loss of kidney function 15-29CKD 5 Kidney failure <15Note: (go live 2024) the eGFR calculation was updated to the KD-EPI creatinine equation without a race factor to calculate theeGFR results. Performed By: #### C BC, HFP, GFR, ADIFF, PHOS, BMP, ANEU, MG ####[place] [address] .NEUABSon 05-02-2024 Neutrophil, Absolute 5.3 10 3/mcL Normal 2.3-8.[address] [facility] Comment on above: Performed By: #### C BC, HFP, GFR, ADIFF, PHOS, BMP, ANEU, MG ####[place] [address] APTTon 05-02-2024 aPTT Coag (Bld) [Time] 47.9 s High 25.0-35.0 [facility] Comment on above: Result Comment: For Heparin anticoagulation therapy, the recommendedtherapeutic range is: 54-77 seconds (APTT Correlationwith Anti-Xa therapeutic range of 0.3-0.7 units/ml).PLEASE REFERENCE THE PHARMACY PROTOCOL FOR DOSING. Performed By: #### A PTT ####[place] [address] aPTT Coag (Bld) [Time] 54.8 s High 25.0-35.0 [facility] Comment on above: Result Comment: For Heparin anticoagulation therapy, the recommendedtherapeutic range is: 54-77 seconds (APTT Correlationwith Anti-Xa therapeutic range of 0.3-0.7 units/ml).PLEASE REFERENCE THE PHARMACY PROTOCOL FOR DOSING. Performed By: #### A PTT ####[place] [address] aPTT Coag (Bld) [Time] 69.4 s High 25.0-35.0 [facility] Comment on above: Result Comment: For Heparin anticoagulation therapy, the recommendedtherapeutic range is: 54-77 seconds (APTT Correlationwith Anti-Xa therapeutic range of 0.3-0.7 units/ml).PLEASE REFERENCE THE PHARMACY PROTOCOL FOR DOSING. Performed By: #### A PTT ####[place] [address] aPTT Coag (Bld) [Time] 59.8 s High 25.0-35.0 [facility] Comment on above: Result Comment: For Heparin anticoagulation therapy, the recommendedtherapeutic range is: 54-77 seconds (APTT Correlationwith Anti-Xa therapeutic range of 0.3-0.7 units/ml).PLEASE REFERENCE THE PHARMACY PROTOCOL FOR DOSING. Performed By: #### A PTT ####[place] [address] BMPon 05-02-2024 BUN/Creatinine Ratio 16.4 ratio Normal 10.0-22.0 [facility] Comment on above: Performed By: #### C BC, HFP, GFR, ADIFF, PHOS, BMP, ANEU, MG ####[place] [id number] Calcium [Mass/Vol] 9.2 mg/dL Normal 8.7-10.4 [facility] Comment on above: Performed By: #### C BC, HFP, GFR, ADIFF, PHOS, BMP, ANEU, MG ####[address] [address] Chloride [Moles/Vol] 103 mmol/L Normal 98-110 [facility] Comment on above: Performed By: #### C BC, HFP, GFR, ADIFF, PHOS, BMP, ANEU, MG ####[address] [address] CO2 [Moles/Vol] 26 mmol/L Normal 22-32 [facility] Comment on above: Performed By: #### C BC, HFP, GFR, ADIFF, PHOS, BMP, ANEU, MG ####[address] [address] Creatinine [Mass/Vol] 1.34 mg/dL Normal 0.60-1.40 [facility] Comment on above: Result Comment: Test ing performed on XillianTV analyzer using enzymatic creatinine methodology. Performed By: #### C BC, HFP, GFR, ADIFF, PHOS, BMP, ANEU, MG ####[address] [address] Electrolyte Balance 10.0 mEq/L Normal 4.0-15.0 [facility] Comment on above: Performed By: #### C BC, HFP, GFR, ADIFF, PHOS, BMP, ANEU, MG ####[place] [id number] Glucose [Mass/Vol] 117 mg/dL High 82-115 [facility] Comment on above: Performed By: #### C BC, HFP, GFR, ADIFF, PHOS, BMP, ANEU, MG ####[place] [address] Potassium [Moles/Vol] 4.1 mmol/L Normal 3.5-5.0 [facility] Comment on above: Performed By: #### C BC, HFP, GFR, ADIFF, PHOS, BMP, ANEU, MG ####[place] [address] Sodium [Moles/Vol] 139 mmol/L Normal 136-145 [facility] Comment on above: Performed By: #### C BC, HFP, GFR, ADIFF, PHOS, BMP, ANEU, MG ####[place] [id number] Urea nitrogen [Mass/Vol] 22.0 mg/dL Normal 8.0-22.0 [facility] Comment on above: Performed By: #### C BC, HFP, GFR, ADIFF, PHOS, BMP, ANEU, MG ####[address] [address] CBCon 05-02-2024 Erythrocyte distribution width (RBC) [Ratio] 14.4 % Normal 11.5-15.5 [facility] Comment on above: Performed By: #### C BC, HFP, GFR, ADIFF, PHOS, BMP, ANEU, MG ####[place] [address] Hematocrit (Bld) [Volume fraction] 39.1 % Low 40.0-52.0 [facility] Comment on above: Performed By: #### C BC, HFP, GFR, ADIFF, PHOS, BMP, ANEU, MG ####[place] [address] Hgb 13.3 G/dL Normal 13.0-17.5 [facility] Comment on above: Performed By: #### C BC, HFP, GFR, ADIFF, PHOS, BMP, ANEU, MG ####[place] [address] MCH (RBC) [Entitic mass] 30.3 pg Normal 27.0-33.0 [facility] Comment on above: Performed By: #### C BC, HFP, GFR, ADIFF, PHOS, BMP, ANEU, MG ####[place] [address] MCHC 33.9 G/dL Normal 32.0-36.0 [facility] Comment on above: Performed By: #### C BC, HFP, GFR, ADIFF, PHOS, BMP, ANEU, MG ####[place] [address] MCV (RBC) [Entitic vol] 89.2 fL Normal 81.0-100.0 [facility] Comment on above: Performed By: #### C BC, HFP, GFR, ADIFF, PHOS, BMP, ANEU, MG ####[place] [address] Platelet 220 10 3/mcL Normal 150-450 [facility] Comment on above: Performed By: #### C BC, HFP, GFR, ADIFF, PHOS, BMP, ANEU, MG ####[place] [address] Platelet mean volume (Bld) [Entitic vol] 9.5 fL Normal 6.4-10.5 [facility] Comment on above: Performed By: #### C BC, HFP, GFR, ADIFF, PHOS, BMP, ANEU, MG ####[place] [id number] RBC 4.38 10 6/mcL Low 4.50-6.00 [facility] Comment on above: Performed By: #### C BC, HFP, GFR, ADIFF, PHOS, BMP, ANEU, MG ####[place] [address] WBC 9.8 10 3/mcL Normal 4.5-10.8 [facility] Comment on above: Performed By: #### C BC, HFP, GFR, ADIFF, PHOS, BMP, ANEU, MG ####[place] [address] HFPon 05-02-2024 Bili Indirect Unable to Calculate Normal 0.1-10.[address] [facility] Comment on above: Result Comment: Unab le to calculate this test result accurately. Results used to calculate this test are outside the reportable range. Performed By: #### C BC, HFP, GFR, ADIFF, PHOS, BMP, ANEU, MG ####[place] [address] Albumin Level 3.2 G/dL Normal 3.2-4.8 [facility] Comment on above: Performed By: #### C BC, HFP, GFR, ADIFF, PHOS, BMP, ANEU, MG ####[place] [address] Albumin/Globulin [Mass ratio] 0.9 {ratio} Normal 0.9-1.6 [facility] Comment on above: Performed By: #### C BC, HFP, GFR, ADIFF, PHOS, BMP, ANEU, MG ####[address] [address] ALP [Catalytic activity/Vol] 95 U/L Normal 38-126 [facility] Comment on above: Performed By: #### C BC, HFP, GFR, ADIFF, PHOS, BMP, ANEU, MG ####[place] [address] ALT [Catalytic activity/Vol] 24 U/L Normal 12-55 [facility] Comment on above: Performed By: #### C BC, HFP, GFR, ADIFF, PHOS, BMP, ANEU, MG ####[place] [address] AST [Catalytic activity/Vol] 30 U/L Normal 8-34 [facility] Comment on above: Performed By: #### C BC, HFP, GFR, ADIFF, PHOS, BMP, ANEU, MG ####[place] [address] Bili Direct <0.1 Normal 0.0-0.4 [facility] Comment on above: Result Comment: Use of this assay is not recommended for patients undergoing treatment with eltrombopag due to the potential for falsely elevated results. Performed By: #### C BC, HFP, GFR, ADIFF, PHOS, BMP, ANEU, MG ####[place] [address] Bili Total 0.30 mg/dL Normal 0.20-1.20 [facility] Comment on above: Result Comment: Use of this assay is not recommended for patients undergoing treatment with eltrombopag due to the potential for falsely elevated results. Performed By: #### C BC, HFP, GFR, ADIFF, PHOS, BMP, ANEU, MG ####[place] [address] Globulin 3.7 G/dL Normal 1.5-3.8 [facility] Comment on above: Performed By: #### C BC, HFP, GFR, ADIFF, PHOS, BMP, ANEU, MG ####[place] [address] Total Protein 6.9 G/dL Normal 5.7-8.2 [facility] Comment on above: Performed By: #### C BC, HFP, GFR, ADIFF, PHOS, BMP, ANEU, MG ####[place] [address] MGon 05-02-2024 Magnesium [Mass/Vol] 2.3 mg/dL Normal 1.6-2.4 [facility] Comment on above: Performed By: #### C BC, HFP, GFR, ADIFF, PHOS, BMP, ANEU, MG ####[address] [address] PHOSon 05-02-2024 Phosphate [Mass/Vol] 3.4 mg/dL Normal 2.4-5.1 [facility] Comment on above: Result Comment: No te - New Reference Range in effect 19 Performed By: #### C BC, HFP, GFR, ADIFF, PHOS, BMP, ANEU, MG ####[place] [address] UAon 05-02-2024 Color (U) Yellow Normal [facility] Comment on above: Order Comment: No sp ecimen received; notified Scott at [facility] for recollection 05/01/2024 13:44:56 EST Performed By: #### U A ####[place] [address] Glucose (U) [Mass/Vol] Negative Normal Negative [facility] Comment on above: Order Comment: No sp ecimen received; notified Scott at [facility] for recollection 05/01/2024 13:44:56 EST Performed By: #### U A ####[place] [address] Ketones Ql (U) Negative Normal Neg-Trace [facility] Comment on above: Order Comment: No sp ecimen received; notified Scott at [facility] for recollection 05/01/2024 13:44:56 EST Performed By: #### U A ####[place] [address] UA Appear Clear Normal Clear [facility] Comment on above: Order Comment: No sp ecimen received; notified Scott at [facility] for recollection 05/01/2024 13:44:56 EST Performed By: #### U A ####[place] [address] UA Blood Negative Normal Neg-Trace [facility] Comment on above: Order Comment: No sp ecimen received; notified Scott at [facility] for recollection 05/01/2024 13:44:56 EST Performed By: #### U A ####[facility] [place] [address] UA Leuk Est Negative Normal Negative [facility] Comment on above: Order Comment: No sp ecimen received; notified Scott at [facility] for recollection 05/01/2024 13:44:56 EST Performed By: #### U A ####[place] [address] UA Nitrite Negative Normal Negative [facility] Comment on above: Order Comment: No sp ecimen received; notified Scott at [facility] for recollection 05/01/2024 13:44:56 EST Performed By: #### U A ####[place] [address] UA pH 5.5 Normal 5.0 - 8.0 [facility] Comment on above: Order Comment: No sp ecimen received; notified Scott at [facility] for recollection 05/01/2024 13:44:56 EST Performed By: #### U A ####[place] [address] UA Protein Negative Normal Negative [facility] Comment on above: Order Comment: No sp ecimen received; notified Scott at [facility] for recollection 05/01/2024 13:44:56 EST Performed By: #### U A ####[place] [address] UA Spec Grav 1.010 Normal 1.006-1.029 [facility] Comment on above: Order Comment: No sp ecimen received; notified Scott at [facility] for recollection 05/01/2024 13:44:56 EST Performed By: #### U A ####[place] [address] UA Specimen Type Not Given Normal [facility] Comment on above: Order Comment: No sp ecimen received; notified Scott at [facility] for recollection 05/01/2024 13:44:56 EST Performed By: #### U A ####[place] [address] UA Urobilinogen 0.2 E.U./dL Normal 0.2-1.0 [facility] Comment on above: Order Comment: No sp ecimen received; notified Scott at [facility] for recollection 05/01/2024 13:44:56 EST Performed By: #### U A ####[address] [address] Urobilinogen (U) [Mass/Vol] Negative Normal Neg-Trace [facility] Comment on above: Order Comment: No sp ecimen received; notified Scott at [facility] for recollection 05/01/2024 13:44:56 EST Performed By: #### U A ####[address] [address] .Auto Diffon 05-01-2024 Basophil, Absolute 0.1 10 3/mcL Normal 0.0-0.3 [facility] Comment on above: Performed By: #### A DIFF, MG, ANEU, CBC, PHOS, LIPID, BMP, APTT, A1C, HFP, GFR ####[address] [address] Basophils/100 WBC (Bld) 0.9 % Normal 0.0-2.5 [facility] Comment on above: Performed By: #### A DIFF, MG, ANEU, CBC, PHOS, LIPID, BMP, APTT, A1C, HFP, GFR ####[address] [address] Eosinophil, Absolute 0.5 10 3/mcL Normal 0.0-0.[address] [facility] Comment on above: Performed By: #### A DIFF, MG, ANEU, CBC, PHOS, LIPID, BMP, APTT, A1C, HFP, GFR ####[address] [address] Eosinophils/100 WBC (Bld) 4.9 % Normal 0.0-6.0 [facility] Comment on above: Performed By: #### A DIFF, MG, ANEU, CBC, PHOS, LIPID, BMP, APTT, A1C, HFP, GFR ####[address] [address] Lymphocyte, Absolute 3.8 10 3/mcL Normal 0.9-4.[address] [facility] Comment on above: Performed By: #### A DIFF, MG, ANEU, CBC, PHOS, LIPID, BMP, APTT, A1C, HFP, GFR ####[address] [address] Lymphocytes/100 WBC (Bld) 38.3 % Normal 20.0-40.0 [facility] Comment on above: Performed By: #### A DIFF, MG, ANEU, CBC, PHOS, LIPID, BMP, APTT, A1C, HFP, GFR ####[address] [address] Monocyte, Absolute 0.7 10 3/mcL Normal 0.1-1.4 [facility] Comment on above: Performed By: #### A DIFF, MG, ANEU, CBC, PHOS, LIPID, BMP, APTT, A1C, HFP, GFR ####[address] [address] Monocytes/100 WBC (Bld) 7.5 % Normal 2.0-13.0 [facility] Comment on above: Performed By: #### A DIFF, MG, ANEU, CBC, PHOS, LIPID, BMP, APTT, A1C, HFP, GFR ####[address] [address] Neutrophils/100 WBC (Bld) 48.4 % Low 50.0-75.0 [facility] Comment on above: Performed By: #### A DIFF, MG, ANEU, CBC, PHOS, LIPID, BMP, APTT, A1C, HFP, GFR ####[address] [address] .GFRon 05-01-2024 Estimated Glomerular Filtration Rate 54 ml/min/1.73sqm Normal [facility] Comment on above: Result Comment: Stag es of Chronic Kidney Disease (CKD)Stage Description eGFR(ml/min/1.73 sq.m.)CKD 1 Normal kidney function or >=90 normal kindney function with possible kidney damage (ex. Proteinuria)CKD 2 Kidney damage with mild loss 60-89 of kidney functionCKD 3a Mild to moderate loss of kidney 45-59 functionCKD 3b Moderate to severe loss of 30-44 of kindey function CKD 4 Severe loss of kidney function 15-29CKD 5 Kidney failure <15Note: (go live 2024) the eGFR calculation was updated to the KD-EPI creatinine equation without a race factor to calculate theeGFR results. Performed By: #### A DIFF, MG, ANEU, CBC, PHOS, LIPID, BMP, APTT, A1C, HFP, GFR ####[place] [address] .NEUABSon 05-01-2024 Neutrophil, Absolute 4.8 10 3/mcL Normal 2.3-8.[address] [facility] Comment on above: Performed By: #### A DIFF, MG, ANEU, CBC, PHOS, LIPID, BMP, APTT, A1C, HFP, GFR ####[place] [address] A1Con 05-01-2024 Glucose [Mass/Vol] 137 mg/dL Normal [facility] Comment on above: Result Comment: Grisel mated Average Glucose calculated by equation ((28.7xA1C)-46.7)Estimated average glucose (eAG) is a calculated value from Hemoglobin A1C and is business services sales representative of the average blood glucose level in the last 2-3 month period.Normal range: less than 114 mg/dL Performed By: #### A DIFF, MG, ANEU, CBC, PHOS, LIPID, BMP, APTT, A1C, HFP, GFR ####[place] [address] HbA1c (Bld) [Mass fraction] 6.4 % High 4.0-6.0 [facility] Comment on above: Performed By: #### A DIFF, MG, ANEU, CBC, PHOS, LIPID, BMP, APTT, A1C, HFP, GFR ####[place] [address] APTTon 05-01-2024 aPTT Coag (Bld) [Time] 44.3 s High 25.0-35.0 [facility] Comment on above: Result Comment: For Heparin anticoagulation therapy, the recommendedtherapeutic range is: 54-77 seconds (APTT Correlationwith Anti-Xa therapeutic range of 0.3-0.7 units/ml).PLEASE REFERENCE THE PHARMACY PROTOCOL FOR DOSING. Performed By: #### A PTT ####[address] [address] aPTT Coag (Bld) [Time] 48.0 s High 25.0-35.0 [facility] Comment on above: Result Comment: For Heparin anticoagulation therapy, the recommendedtherapeutic range is: 54-77 seconds (APTT Correlationwith Anti-Xa therapeutic range of 0.3-0.7 units/ml).PLEASE REFERENCE THE PHARMACY PROTOCOL FOR DOSING. Performed By: #### A PTT ####[address] [address] aPTT Coag (Bld) [Time] 63.0 s High 25.0-35.0 [facility] Comment on above: Result Comment: For Heparin anticoagulation therapy, the recommendedtherapeutic range is: 54-77 seconds (APTT Correlationwith Anti-Xa therapeutic range of 0.3-0.7 units/ml).PLEASE REFERENCE THE PHARMACY PROTOCOL FOR DOSING. Performed By: #### A DIFF, MG, ANEU, CBC, PHOS, LIPID, BMP, APTT, A1C, HFP, GFR ####[address] [address] BMPon 05-01-2024 BUN/Creatinine Ratio 15.3 ratio Normal 10.0-22.0 [facility] Comment on above: Performed By: #### A DIFF, MG, ANEU, CBC, PHOS, LIPID, BMP, APTT, A1C, HFP, GFR ####[address] [address] Calcium [Mass/Vol] 9.6 mg/dL Normal 8.7-10.4 [facility] Comment on above: Performed By: #### A DIFF, MG, ANEU, CBC, PHOS, LIPID, BMP, APTT, A1C, HFP, GFR ####[address] [address] Chloride [Moles/Vol] 104 mmol/L Normal 98-110 [facility] Comment on above: Performed By: #### A DIFF, MG, ANEU, CBC, PHOS, LIPID, BMP, APTT, A1C, HFP, GFR ####[address] [address] CO2 [Moles/Vol] 25 mmol/L Normal 22-32 [facility] Comment on above: Performed By: #### A DIFF, MG, ANEU, CBC, PHOS, LIPID, BMP, APTT, A1C, HFP, GFR ####[address] [address] Creatinine [Mass/Vol] 1.37 mg/dL Normal 0.60-1.40 [facility] Comment on above: Result Comment: Test ing performed on XillianTV analyzer using enzymatic creatinine methodology. Performed By: #### A DIFF, MG, ANEU, CBC, PHOS, LIPID, BMP, APTT, A1C, HFP, GFR ####[place] [address] Electrolyte Balance 10.0 mEq/L Normal 4.0-15.0 [facility] Comment on above: Performed By: #### A DIFF, MG, ANEU, CBC, PHOS, LIPID, BMP, APTT, A1C, HFP, GFR ####[place] [id number] Glucose [Mass/Vol] 115 mg/dL Normal 82-115 [facility] Comment on above: Performed By: #### A DIFF, MG, ANEU, CBC, PHOS, LIPID, BMP, APTT, A1C, HFP, GFR ####[address] [address] Potassium [Moles/Vol] 4.1 mmol/L Normal 3.5-5.0 [facility] Comment on above: Performed By: #### A DIFF, MG, ANEU, CBC, PHOS, LIPID, BMP, APTT, A1C, HFP, GFR ####[place] [address] Sodium [Moles/Vol] 139 mmol/L Normal 136-145 [facility] Comment on above: Performed By: #### A DIFF, MG, ANEU, CBC, PHOS, LIPID, BMP, APTT, A1C, HFP, GFR ####[address] [address] Urea nitrogen [Mass/Vol] 21.0 mg/dL Normal 8.0-22.0 [facility] Comment on above: Performed By: #### A DIFF, MG, ANEU, CBC, PHOS, LIPID, BMP, APTT, A1C, HFP, GFR ####[place] [address] CBCon 05-01-2024 Erythrocyte distribution width (RBC) [Ratio] 14.1 % Normal 11.5-15.5 [facility] Comment on above: Performed By: #### A DIFF, MG, ANEU, CBC, PHOS, LIPID, BMP, APTT, A1C, HFP, GFR ####[place] [address] Hematocrit (Bld) [Volume fraction] 36.7 % Low 40.0-52.0 [facility] Comment on above: Performed By: #### A DIFF, MG, ANEU, CBC, PHOS, LIPID, BMP, APTT, A1C, HFP, GFR ####[place] [address] Hgb 12.5 G/dL Low 13.0-17.5 [facility] Comment on above: Performed By: #### A DIFF, MG, ANEU, CBC, PHOS, LIPID, BMP, APTT, A1C, HFP, GFR ####[place] [address] MCH (RBC) [Entitic mass] 30.6 pg Normal 27.0-33.0 [facility] Comment on above: Performed By: #### A DIFF, MG, ANEU, CBC, PHOS, LIPID, BMP, APTT, A1C, HFP, GFR ####[place] [address] MCHC 33.9 G/dL Normal 32.0-36.0 [facility] Comment on above: Performed By: #### A DIFF, MG, ANEU, CBC, PHOS, LIPID, BMP, APTT, A1C, HFP, GFR ####[place] [address] MCV (RBC) [Entitic vol] 90.1 fL Normal 81.0-100.0 [facility] Comment on above: Performed By: #### A DIFF, MG, ANEU, CBC, PHOS, LIPID, BMP, APTT, A1C, HFP, GFR ####[place] [address] Platelet 240 10 3/mcL Normal 150-450 [facility] Comment on above: Performed By: #### A DIFF, MG, ANEU, CBC, PHOS, LIPID, BMP, APTT, A1C, HFP, GFR ####[place] [address] Platelet mean volume (Bld) [Entitic vol] 9.5 fL Normal 6.4-10.5 [facility] Comment on above: Performed By: #### A DIFF, MG, ANEU, CBC, PHOS, LIPID, BMP, APTT, A1C, HFP, GFR ####[place] [address] RBC 4.08 10 6/mcL Low 4.50-6.00 [facility] Comment on above: Performed By: #### A DIFF, MG, ANEU, CBC, PHOS, LIPID, BMP, APTT, A1C, HFP, GFR ####[place] [address] WBC 10.0 10 3/mcL Normal 4.5-10.8 [facility] Comment on above: Performed By: #### A DIFF, MG, ANEU, CBC, PHOS, LIPID, BMP, APTT, A1C, HFP, GFR ####[place] [address] HFPon 05-01-2024 Bili Indirect 0.3 mg/dL Normal 0.1-10.0 [facility] Comment on above: Performed By: #### A DIFF, MG, ANEU, CBC, PHOS, LIPID, BMP, APTT, A1C, HFP, GFR ####[place] [address] Albumin Level 3.2 G/dL Normal 3.2-4.8 [facility] Comment on above: Performed By: #### A DIFF, MG, ANEU, CBC, PHOS, LIPID, BMP, APTT, A1C, HFP, GFR ####[place] [address] Albumin/Globulin [Mass ratio] 0.9 {ratio} Normal 0.9-1.6 [facility] Comment on above: Performed By: #### A DIFF, MG, ANEU, CBC, PHOS, LIPID, BMP, APTT, A1C, HFP, GFR ####[place] [id number] ALP [Catalytic activity/Vol] 92 U/L Normal 38-126 [facility] Comment on above: Performed By: #### A DIFF, MG, ANEU, CBC, PHOS, LIPID, BMP, APTT, A1C, HFP, GFR ####[place] [address] ALT [Catalytic activity/Vol] 20 U/L Normal 12-55 [facility] Comment on above: Performed By: #### A DIFF, MG, ANEU, CBC, PHOS, LIPID, BMP, APTT, A1C, HFP, GFR ####[place] [address] AST [Catalytic activity/Vol] 28 U/L Normal 8-34 [facility] Comment on above: Performed By: #### A DIFF, MG, ANEU, CBC, PHOS, LIPID, BMP, APTT, A1C, HFP, GFR ####[place] [address] Bili Direct 0.1 mg/dL Normal 0.0-0.4 [facility] Comment on above: Result Comment: Use of this assay is not recommended for patients undergoing treatment with eltrombopag due to the potential for falsely elevated results. Performed By: #### A DIFF, MG, ANEU, CBC, PHOS, LIPID, BMP, APTT, A1C, HFP, GFR ####[place] [address] Bili Total 0.40 mg/dL Normal 0.20-1.20 [facility] Comment on above: Result Comment: Use of this assay is not recommended for patients undergoing treatment with eltrombopag due to the potential for falsely elevated results. Performed By: #### A DIFF, MG, ANEU, CBC, PHOS, LIPID, BMP, APTT, A1C, HFP, GFR ####[place] [id number] [address] [place] [id number] Globulin 3.5 G/dL Normal 1.5-3.8 [facility] Comment on above: Performed By: #### A DIFF, MG, ANEU, CBC, PHOS, LIPID, BMP, APTT, A1C, HFP, GFR ####[address] [id number] Total Protein 6.7 G/dL Normal 5.7-8.2 [facility] Comment on above: Performed By: #### A DIFF, MG, ANEU, CBC, PHOS, LIPID, BMP, APTT, A1C, HFP, GFR ####[address] [address] LIPIDon 05-01-2024 Cholesterol [Mass/Vol] 166 mg/dL Normal 50-199 [facility] [facility] Comment on above: Result Comment: Chol esterol Reference Interval:Less than 200 [id number] Borderline high [id number] and above High risk Performed By: #### A DIFF, MG, ANEU, CBC, PHOS, LIPID, BMP, APTT, A1C, HFP, GFR ####[address] [address] Cholesterol in HDL [Mass/Vol] 56 mg/dL Normal 40-59 [facility] Comment on above: Performed By: #### A DIFF, MG, ANEU, CBC, PHOS, LIPID, BMP, APTT, A1C, HFP, GFR ####[address] [address] Cholesterol in LDL [Mass/Vol] 77 mg/dL Normal 0-129 [facility] Comment on above: Performed By: #### A DIFF, MG, ANEU, CBC, PHOS, LIPID, BMP, APTT, A1C, HFP, GFR ####[address] [address] Triglyceride [Mass/Vol] 164 mg/dL High 3-149 [facility] Comment on above: Performed By: #### A DIFF, MG, ANEU, CBC, PHOS, LIPID, BMP, APTT, A1C, HFP, GFR ####[place] [address] MGon 05-01-2024 Magnesium [Mass/Vol] 2.2 mg/dL Normal 1.6-2.4 [facility] Comment on above: Performed By: #### A DIFF, MG, ANEU, CBC, PHOS, LIPID, BMP, APTT, A1C, HFP, GFR ####[place] [address] PHOSon 05-01-2024 Phosphate [Mass/Vol] 3.8 mg/dL Normal 2.4-5.1 [facility] Comment on above: Result Comment: No te - New Reference Range in effect 19 Performed By: #### A DIFF, MG, ANEU, CBC, PHOS, LIPID, BMP, APTT, A1C, HFP, GFR ####[place] [address] APTTon 04-30-2024 aPTT Coag (Bld) [Time] 37.5 s High 25.0-35.0 [facility] Comment on above: Result Comment: For Heparin anticoagulation therapy, the recommendedtherapeutic range is: 54-77 seconds (APTT Correlationwith Anti-Xa therapeutic range of 0.3-0.7 units/ml).PLEASE REFERENCE THE PHARMACY PROTOCOL FOR DOSING. Performed By: #### A PTT ####[place] [address] aPTT Coag (Bld) [Time] 96.5 s High 25.0-35.0 [facility] Comment on above: Result Comment: For Heparin anticoagulation therapy, the recommendedtherapeutic range is: 54-77 seconds (APTT Correlationwith Anti-Xa therapeutic range of 0.3-0.7 units/ml).PLEASE REFERENCE THE PHARMACY PROTOCOL FOR DOSING. Performed By: #### P RO, APTT ####[place] [address] PROon 04-30-2024 INR Coag (PPP) [Relative time] 1.1 {INR} Normal [facility] Comment on above: Result Comment: The [employer] (CHEST, 1992, 102:312S-25S)recommended therapeutic range for oral anticoagulant therapy is:LOW RISK: Prophylaxis of venous thrombosis INR: 2.0-3.0 Treatment of pulmonary embolism 2.0-3.0 Prevention of systemic embolism 2.0-3.0HIGH RISK: Mechanical prosthetic valves 2.5-3.5 Performed By: #### P RO, APTT ####[place] [address] PT Coag (PPP) [Time] 12.3 s Normal 9.0-14.4 [facility] Comment on above: Result Comment: Effe ctive 09/22/07, Protime results may be affected by some antibiotics (i.e. Ciprofloxacin, Azithromycin, Bactrim) which may potentiate the action of oral anticoagulants, with further increases in Protime/INR. Performed By: #### P RO, APTT ####[place] [address] .Auto Diffon 04-29-2024 Basophil, Absolute 0.1 10 3/mcL Normal 0.0-0.2 [facility] Comment on above: Performed By: #### P SA, ADIFF, ANEU, GFR, LIPID, VIDH, CMP, CBC #### [place] [address] #### PTH #### [place] [address] Basophils/100 WBC (Bld) 0.7 % Normal 0.0-2.5 [facility] Comment on above: Performed By: #### P SA, ADIFF, ANEU, GFR, LIPID, VIDH, CMP, CBC #### [address] [address] #### PTH #### [place] [address] Eosinophil, Absolute 0.5 10 3/mcL Normal 0.0-0.7 [facility] Comment on above: Performed By: #### P SA, ADIFF, ANEU, GFR, LIPID, VIDH, CMP, CBC #### [place] [address] #### PTH #### [address] [address] Eosinophils/100 WBC (Bld) 4.5 % Normal 0.0-7.0 [facility] Comment on above: Performed By: #### P SA, ADIFF, ANEU, GFR, LIPID, VIDH, CMP, CBC #### [address] [address] #### PTH #### [address] [address] Lymphocyte, Absolute 2.6 10 3/mcL Normal 0.9-4.3 [facility] Comment on above: Performed By: #### P SA, ADIFF, ANEU, GFR, LIPID, VIDH, CMP, CBC #### [address] [address] #### PTH #### [address] [address] Lymphocytes/100 WBC (Bld) 24.7 % Normal 20.0-40.0 [facility] Comment on above: Performed By: #### P SA, ADIFF, ANEU, GFR, LIPID, VIDH, CMP, CBC #### [address] [address] #### PTH #### [address] [address] Monocyte, Absolute 0.8 10 3/mcL Normal 0.1-1.4 [facility] Comment on above: Performed By: #### P SA, ADIFF, ANEU, GFR, LIPID, VIDH, CMP, CBC #### [address] [address] #### PTH #### [address] [address] Monocytes/100 WBC (Bld) 7.8 % Normal 2.0-13.0 [facility] Comment on above: Performed By: #### P SA, ADIFF, ANEU, GFR, LIPID, VIDH, CMP, CBC #### [address] [address] #### PTH #### [address] [address] Neutrophils/100 WBC (Bld) 62.3 % Normal 50.0-75.0 [facility] Comment on above: Performed By: #### P SA, ADIFF, ANEU, GFR, LIPID, VIDH, CMP, CBC #### [address] [address] #### PTH #### [address] [address] .GFRon 04-29-2024 Estimated Glomerular Filtration Rate 50 ml/min/1.73sqm Normal [facility] Comment on above: Result Comment: Stages of Chronic Kidney Disease (CKD) Stage Description eGFR(ml/min/1.73 sq.m.) CKD 1 Normal kidney function or >=90 normal kindney function with possible kidney damage (ex. Proteinuria) CKD 2 Kidney damage with mild loss 60-89 of kidney function CKD 3a Mild to moderate loss of kidney 45-59 function CKD 3b Moderate to severe loss of 30-44 of kindey function CKD 4 Severe loss of kidney function 15-29 CKD 5 Kidney failure <15 Note: (go live 2024) the eGFR calculation was updated to the 2020 CKD-EPI creatinine equation without a race factor to calculate the eGFR results. Performed By: #### P SA, ADIFF, ANEU, GFR, LIPID, VIDH, CMP, CBC #### [address] [address] #### PTH #### [place] [address] .NEUABSon 04-29-2024 Neutrophil, Absolute 6.5 10 3/mcL Normal 2.3-8.1 [facility] Comment on above: Performed By: #### P SA, ADIFF, ANEU, GFR, LIPID, VIDH, CMP, CBC #### [address] [address] #### PTH #### [address] [address] BMPon 04-29-2024 BUN/Creatinine Ratio 15 ratio Normal 7-27 [facility] Comment on above: Performed By: #### P SA, ADIFF, ANEU, GFR, LIPID, VIDH, CMP, CBC #### [place] [address] #### PTH #### [address] [address] Calcium [Mass/Vol] 10.4 mg/dL High 8.4-10.2 [facility] Comment on above: Performed By: #### P SA, ADIFF, ANEU, GFR, LIPID, VIDH, CMP, CBC #### [place] [address] #### PTH #### [place] [address] Chloride [Moles/Vol] 102 mmol/L Normal 98-107 [facility] Comment on above: Performed By: #### P SA, ADIFF, ANEU, GFR, LIPID, VIDH, CMP, CBC #### [place] [address] #### PTH #### [place] [address] CO2 [Moles/Vol] 27 mmol/L Normal 23-31 [facility] Comment on above: Performed By: #### P SA, ADIFF, ANEU, GFR, LIPID, VIDH, CMP, CBC #### [place] [address] #### PTH #### [place] [address] Creatinine [Mass/Vol] 1.46 mg/dL High 0.70-1.30 [facility] Comment on above: Result Comment: Test ing performed on Siemens Dimension EXL analyzer using a modified kinetic Dm technique. Performed By: #### P SA, ADIFF, ANEU, GFR, LIPID, VIDH, CMP, CBC #### [place] [address] #### PTH #### [place] [address] Electrolyte Balance 10.0 mEq/L Normal 4.0-15.0 [facility] Comment on above: Performed By: #### P SA, ADIFF, ANEU, GFR, LIPID, VIDH, CMP, CBC #### [place] [address] #### PTH #### [address] [address] Glucose [Mass/Vol] 120 mg/dL High 83-110 [facility] Comment on above: Performed By: #### P SA, ADIFF, ANEU, GFR, LIPID, VIDH, CMP, CBC #### [place] [address] #### PTH #### [address] [address] Potassium [Moles/Vol] 4.9 mmol/L Normal 3.5-5.1 [facility] Comment on above: Performed By: #### P SA, ADIFF, ANEU, GFR, LIPID, VIDH, CMP, CBC #### [place] [address] #### PTH #### [address] [address] Sodium [Moles/Vol] 139 mmol/L Normal 136-145 [facility] Comment on above: Performed By: #### P SA, ADIFF, ANEU, GFR, LIPID, VIDH, CMP, CBC #### [place] [address] #### PTH #### [address] [address] Urea nitrogen [Mass/Vol] 22 mg/dL High 7-18 [facility] Comment on above: Performed By: #### P SA, ADIFF, ANEU, GFR, LIPID, VIDH, CMP, CBC #### [place] [address] #### PTH #### [address] [address] CBCon 04-29-2024 Erythrocyte distribution width (RBC) [Ratio] 14.1 % Normal 11.5-15.5 [facility] Comment on above: Performed By: #### P SA, ADIFF, ANEU, GFR, LIPID, VIDH, CMP, CBC #### [place] [address] #### PTH #### [place] [address] Hematocrit (Bld) [Volume fraction] 40.8 % Normal 40.0-52.0 [facility] Comment on above: Performed By: #### P SA, ADIFF, ANEU, GFR, LIPID, VIDH, CMP, CBC #### [place] [address] #### PTH #### [place] [address] Hgb 13.9 G/dL Normal 13.0-17.5 [facility] Comment on above: Performed By: #### P SA, ADIFF, ANEU, GFR, LIPID, VIDH, CMP, CBC #### [place] [address] #### PTH #### [place] [address] MCH (RBC) [Entitic mass] 30.7 pg Normal 27.0-33.0 [facility] Comment on above: Performed By: #### P SA, ADIFF, ANEU, GFR, LIPID, VIDH, CMP, CBC #### [place] [address] #### PTH #### [place] [address] MCHC 34.2 G/dL Normal 32.0-36.0 [facility] Comment on above: Performed By: #### P SA, ADIFF, ANEU, GFR, LIPID, VIDH, CMP, CBC #### [place] [address] #### PTH #### [place] [address] MCV (RBC) [Entitic vol] 89.8 fL Normal 81.0-100.0 [facility] Comment on above: Performed By: #### P SA, ADIFF, ANEU, GFR, LIPID, VIDH, CMP, CBC #### [place] [address] #### PTH #### [place] [address] Platelet 281 10 3/mcL Normal 150-450 [facility] Comment on above: Performed By: #### P SA, ADIFF, ANEU, GFR, LIPID, VIDH, CMP, CBC #### [place] [address] #### PTH #### [place] [address] Platelet mean volume (Bld) [Entitic vol] 10.2 fL Normal 6.4-10.5 [facility] Comment on above: Performed By: #### P SA, ADIFF, ANEU, GFR, LIPID, VIDH, CMP, CBC #### [place] [address] #### PTH #### [place] [address] RBC 4.54 10 6/mcL Normal 4.50-6.00 [facility] Comment on above: Performed By: #### P SA, ADIFF, ANEU, GFR, LIPID, VIDH, CMP, CBC #### [place] [address] #### PTH #### [place] [address] WBC 10.4 10 3/mcL Normal 4.5-10.8 [facility] Comment on above: Performed By: #### P SA, ADIFF, ANEU, GFR, LIPID, VIDH, CMP, CBC #### [place] [address] #### PTH #### [place] [address] LABORATORYOrdered By: SYSTEM SYSTEM on 04-29-2024 Basophils (Bld) [#/Vol] 0.1 103/mcL Normal 0.0 - 0.2 10^3/mcL AO Workflow SS Basophils/100 WBC (Bld) 0.7 % Normal 0.0 - 2.5 % AO Workflow SS Calcium [Mass/Vol] 10.4 mg/dL High 8.4 - 10. 2 mg/dL AO ADM SS Chloride [Moles/Vol] 102 mmol/L Normal 98 - 10 7 mmol/L AO ADM SS CO2 [Moles/Vol] 27 mmol/L Normal 23 - 31 mmol/L AO ADM SS Creatinine [Mass/Vol] 1.46 mg/dL High 0.70 - 1.30 mg/dL AO ADM SS Comment on above: Interpretive Data: T esting performed on [employer] Dimension EXL analyzer using a modified kinetic Dm technique. Electrolyte Balance 10.0 mEq/L Normal 4.0 - 15 .0 mEq/L AO ADM SS Eosinophil, Absolute 0.5 103/mcL Normal 0.0 - 0 .7 10^3/mcL AO Workflow SS Eosinophils/100 WBC (Bld) 4.5 % Normal 0.0 - 7.0 % AO Workflow SS Erythrocyte distribution width (RBC) [Ratio] 14.1 % Normal 11.5 - 15.5 % AO Workflow SS Estimated Glomerular Filtration Rate 50 ml/min/1.73sqm Invalid Interpretation Code AO Chemistry S Comment on above: Interpretive Data: Stages of Chronic Kidney Disease (CKD) Stage Description eGFR(ml/min/1.73 sq.m.) CKD 1 Normal kidney function or >=90 normal kindney function with possible kidney damage (ex. Proteinuria) CKD 2 Kidney damage with mild loss 60-89 of kidney function CKD 3a Mild to moderate loss of kidney 45-59 function CKD 3b Moderate to severe loss of 30-44 of kindey function CKD 4 Severe loss of kidney function 15-29 CKD 5 Kidney failure <15 Note: (go live 2024) the eGFR calculation was updated to the 2020 CKD-EPI creatinine equation without a race factor to calculate the eGFR results. Glucose [Mass/Vol] 120 mg/dL High 83 - 110 mg/dL AO ADM SS Hematocrit (Bld) [Volume fraction] 40.8 % Normal 40.0 - 52.0 % AO Workflow SS Hemoglobin (Bld) [Mass/Vol] 13.9 G/dL Normal 13.0 - 17.5 G/dL AO Workflow SS INR Coag (PPP) [Relative time] 1.0 {INR} Invalid Interpretation Code AO HemoHub SS Comment on above: Interpretive Data: T he [employer] (CHEST, 1992, 102:312S-25S) recommended therapeutic range for oral anticoagulant therapy is: LOW RISK: Prophylaxis of venous thrombosis INR: 2.0-3.0 Treatment of pulmonary embolism 2.0-3.0 Prevention of systemic embolism 2.0-3.0 HIGH RISK: Mechanical prosthetic valves 2.5-3.5 Lymphocytes (Bld) [#/Vol] 2.6 103/mcL Normal 0.9 - 4.3 10^3/mcL AO Workflow SS Lymphocytes/100 WBC (Bld) 24.7 % Normal 20.0 - 40.0 % AO Workflow SS MCH (RBC) [Entitic mass] 30.7 pg Normal 27.0 - 33.0 pg AO Workflow SS MCHC 34.2 G/dL Normal 32.0 - 36.0 G/dL AO Workflow SS MCV (RBC) [Entitic vol] 89.8 fL Normal 81.0 - 100.0 fL AO Workflow SS Monocytes (Bld) [#/Vol] 0.8 103/mcL Normal 0.1 - 1.4 10^3/mcL AO Workflow SS Monocytes/100 WBC (Bld) 7.8 % Normal 2.0 - 13.0 % AO Workflow SS Neutrophils (Bld) [#/Vol] 6.5 103/mcL Normal 2.3 - 8.1 10^3/mcL AO Workflow SS Neutrophils/100 WBC (Bld) 62.3 % Normal 50.0 - 75.0 % AO Workflow SS Platelet mean volume (Bld) [Entitic vol] 10.2 fL Normal 6.4 - 10.5 fL AO Workflow SS Platelets (Bld) [#/Vol] 281 103/mcL Normal 150 - 450 10^3/mcL AO Workflow SS Potassium [Moles/Vol] 4.9 mmol/L Normal 3.5 - 5.1 mmol/L AO ADM SS PT Coag (PPP) [Time] 11.9 s Normal 9.0 - 1 4.4 seconds AO HemoHub SS RBC (Bld) [#/Vol] 4.54 106/mcL Normal 4.50 - 6.0 0 10^6/mcL AO Workflow SS Sodium [Moles/Vol] 139 mmol/L Normal 136 - 145 mmol/L AO ADM SS Urea nitrogen [Mass/Vol] 22 mg/dL High 7 - 18 mg/dL AO ADM SS Urea nitrogen/Creatinine [Mass ratio] 15 ratio Normal 7 - 27 ratio AO ADM SS WBC (Bld) [#/Vol] 10.4 103/mcL Normal 4.5 - 10.8 10^3/mcL AO Workflow SS PROon 04-29-2024 PT Coag (PPP) [Time] 11.9 s Normal 9.0-14.4 [facility] Comment on above: Performed By: #### P SA, ADIFF, ANEU, GFR, LIPID, VIDH, CMP, CBC #### [address] [address] #### PTH #### [address] [address] PT International Ratio 1.0 Normal [facility] Comment on above: Result Comment: The [employer] (CHEST, 1992, 102:312S-25S) recommended therapeutic range for oral anticoagulant therapy is: LOW RISK: Prophylaxis of venous thrombosis INR: 2.0-3.0 Treatment of pulmonary embolism 2.0-3.0 Prevention of systemic embolism 2.0-3.0 HIGH RISK: Mechanical prosthetic valves 2.5-3.5 Performed By: #### P SA, ADIFF, ANEU, GFR, LIPID, VIDH, CMP, CBC #### [address] [address] #### PTH #### [address] [address] CNPJumana 04-28-2024 CNPN Telephone (KIMMIE) -- SALO NAGY ([id number]) 1950 M Date Time Provider Department 04/28/24 TANJA PATEL During your visit today, we recorded the following information about you: Tanja Patel LISW 04/28/2024 11:01 AM Signed SOCIAL WORK FOLLOW UP NOTE: [facility] Date of service: April 28, 2024 SW met with pt's this date who reports pt has a [employer] [place] they would like to use to pay for pt's Xtandi. Spoke with pt's about the process for doing so, she verbalized understanding. would like to utilize [facility]. Dr. Maloney - [facility] [place]/payment info is below: [employer] ID: [id number] Patient: Salo Nagy Status: Approved Sub Status: Active Start Date: 08/09/2023 End Date: 08/07/2024 Assistance Type: Co-pay [place] Balance: $7674.37 Pharmacy Card: Card No.: [id number] Card Status: Active BIN:[id number] PCN: [id number] PC Group: [id number] OMID Hassan Allergies As of Date: 04/28/2024 (No Known Allergies) Date Reviewed: 02/18/2024 Reviewed by: Emelina Westbrook Ma, MA - Fully Assessed Reason for Visit: Xtandi Assistance [Other] Xtandi [place] Payment Info [Other] Visit Diagnosis:Malignant neoplasm of prostate (HCC) [C61] Order(s):enzalutamide (XTANDI) 40 mgTake 4 capsules (160mg) by mouth once daily.Disp: 120 capsuleRfl: 11 Prescriptions as of 04/29/2024 - enzalutamide (XTANDI) 40 mg Take 4 capsules (160mg) by mouth once daily. - tamsulosin (FLOMAX) 0.4 mg Take 1 capsule by mouth once daily - enzalutamide (XTANDI) 40 mg tablet Take 4 tablets (160mg) by mouth once daily as directed by physician. - pantoprazole DR (PROTONIX) 40 mg tablet Take 40 mg by mouth once daily. - bbmkfbvdnal-zdtqmkmll-fkjo nter (TRELEGY ELLIPTA) 200-62.5-25 mcg inhalation powder Inhale 1 Puff as instructed once daily. - B-complex with vitamin C (SUPER B COMPLEX-VITAMIN C ORAL) Take 1 tablet by mouth once daily. - triamcinolone acetonide (NASACORT AQ) 55 mcg nasal inhaler Use 2 Sprays in each nostril once daily. - aspirin, enteric coated (ASPIRIN, ENTERIC COATED) 81 mg EC tablet Take 1 tablet by mouth once daily. - hydroCHLOROthiazide (HYDRODIURIL, ESIDRIX) 12.5 mg tablet Take 12.5 mg by mouth once daily. - iv contrast (will be provided with radiology test) CT Chest W -Inject, intravenously, once for 1 dose.No IV access, insert saline lock prior to the beginning of sedation, infusion, injection of imaging exam. Discontinue saline lock post exam. If Pt. has a central line or IVAD, may access for administration according to line specific nursing protocol. Once exam is complete flush line and de-access according to line specific nursing protocol in the CT contrast administration guidelines link. - docusate sodium (COLACE) 100 mg capsule Take 1 capsule by mouth twice daily as needed. - rosuvastatin (CRESTOR) 5 mg tablet Take 5 mg by mouth once daily. - ramipril (ALTACE) 10 mg capsule Take 10 mg by mouth once daily. - metoprolol tartrate, short acting, (LOPRESSOR) 25 mg tablet TAKE 1/2 (ONE-HALF) TABLET BY MOUTH TWICE DAILY - calcium carbonate-vitamin D3 (OSCAL+D) 500 mg(1,250mg) -400 unit chewable tablet Take 1 tablet by mouth once daily. 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, *07/24/2018 Essential hypertension [I10] 09/07/2018 CVA (cerebral vascular accident) (HCC) [I63.9] 09/07/2018 Neoplasm of unspecified behavior of bone, soft *06/18/2018 Panlobular emphysema (HCC) [J43.1] 09/07/2018 Claudication of both lower extremities (HCC) [I*09/07/2018 AAA (abdominal aortic aneurysm) without rupture*09/07/2018 Iliac aneurysm (HCC) [I72.3] 09/07/2018 Bilateral carotid artery stenosis [I65.23] 09/07/2018 Bone metastases (HCC) [C79.51] 01/14/2019 AAA (abdominal aortic aneurysm) (HCC) [I71.40] 10/29/2019 Acute urinary retention [R33.8] 10/30/2019 10/30/2019 Hypoxemia [R09.02] 08/28/2020 Acute pulmonary embolism without acute cor pulm*08/29/2020 Elevated LFTs [R79.89] 04/15/2022 Prescriptions ordered this encounter Disp Refills Start End XTANDI 40 MG CAPSULE 120 * 11 04/29/2024 Route: ORAL Sig: Take 4 capsules (160mg) by mouth once daily. Medications Discontinued During This Encounter Prescriptions - enzalutamide (XTANDI) 40 mg (Discontinued) Take 4 capsules (160mg) by mouth once daily. Encounter Status:Closed by LUIS MIGUEL GUY on 04/29/24 Normal [facility] MYOCARDIAL SPECT STRESS/R ESTon 04-23-2024 AL MYOCARDIAL SPECT STRESS/REST ORIGINAL AL MYOCARDIAL SPECT STRESS/REST CLINICAL STATEMENT: HEARTBURN MURMUR SHORTNESS OF BREATH CKD CORONARY ARTERY CALCIFICATION TECHNIQUE: Lexiscan dose: 0.4 mg Radiopharmaceutical (stress): Tc-99m Sestamibi Dose:31.1 mCi Radiopharmaceutical (rest): Tc-99m Sestamibi Dose:10.1 mCi SPECT acquisition and processing Reconstruction and reorientation of SPECT images into short axis, vertical and horizontal long axis planes Quantitative LVEF assessment COMPARISON:none REPORT:Technically difficult today. There is a small sized mild to moderate intensity reversible perfusion defect noted in the apical to mid inferior/inferoseptal wall. No clear fixed defects noted. Mild motion is noted on review of rotating raw images. TID ratio 0.97. Left ventricular ejection fraction is 62% and left ventricular end-diastolic volume is 65 mL. IMPRESSION: Reversible perfusion defect noted in the inferior/inferoseptal wall that may represent ischemia. No evidence of infarction. Normal left ventricular ejection fraction. ECG portion will be separately Interpreted By: Cynthia Coates Preliminary Report By: Cynthia Coates Electronically Signed By: Cynthia Coates Dictated Date: 04/23/2024 3:21:19 AM Prelim Date: 04/23/2024 3:21:19 AM Sign Date: 04/23/2024 3:27:45 AM Ordering Provider:Evi Bauer [facility] .Auto Diffon 04-19-2024 Basophil, Absolute 0.1 10 3/mcL Normal 0.0-0.2 [facility] Comment on above: Performed By: #### P SA, ADIFF, ANEU, GFR, LIPID, VIDH, CMP, CBC #### [address] [address] #### PTH #### [address] [address] Basophils/100 WBC (Bld) 0.9 % Normal 0.0-2.5 [facility] Comment on above: Performed By: #### P SA, ADIFF, ANEU, GFR, LIPID, VIDH, CMP, CBC #### [place] [address] #### PTH #### [address] [address] Eosinophil, Absolute 0.4 10 3/mcL Normal 0.0-0.7 [facility] Comment on above: Performed By: #### P SA, ADIFF, ANEU, GFR, LIPID, VIDH, CMP, CBC #### [address] [address] #### PTH #### [address] [address] Eosinophils/100 WBC (Bld) 4.4 % Normal 0.0-7.0 [facility] Comment on above: Performed By: #### P SA, ADIFF, ANEU, GFR, LIPID, VIDH, CMP, CBC #### [place] [address] #### PTH #### [address] [address] Lymphocyte, Absolute 2.4 10 3/mcL Normal 0.9-4.3 [facility] Comment on above: Performed By: #### P SA, ADIFF, ANEU, GFR, LIPID, VIDH, CMP, CBC #### [address] [address] #### PTH #### [address] [address] Lymphocytes/100 WBC (Bld) 24.9 % Normal 20.0-40.0 [facility] Comment on above: Performed By: #### P SA, ADIFF, ANEU, GFR, LIPID, VIDH, CMP, CBC #### [address] [address] #### PTH #### [address] [address] Monocyte, Absolute 0.7 10 3/mcL Normal 0.1-1.4 [facility] Comment on above: Performed By: #### P SA, ADIFF, ANEU, GFR, LIPID, VIDH, CMP, CBC #### [address] [address] #### PTH #### [address] [address] Monocytes/100 WBC (Bld) 7.2 % Normal 2.0-13.0 [facility] Comment on above: Performed By: #### P SA, ADIFF, ANEU, GFR, LIPID, VIDH, CMP, CBC #### [address] [address] #### PTH #### [address] [address] Neutrophils/100 WBC (Bld) 62.6 % Normal 50.0-75.0 [facility] Comment on above: Performed By: #### P SA, ADIFF, ANEU, GFR, LIPID, VIDH, CMP, CBC #### [place] [address] #### PTH #### [address] [address] .GFRon 04-19-2024 Estimated Glomerular Filtration Rate 57 ml/min/1.73sqm Normal [facility] Comment on above: Result Comment: Stages of Chronic Kidney Disease (CKD) Stage Description eGFR(ml/min/1.73 sq.m.) CKD 1 Normal kidney function or >=90 normal kindney function with possible kidney damage (ex. Proteinuria) CKD 2 Kidney damage with mild loss 60-89 of kidney function CKD 3a Mild to moderate loss of kidney 45-59 function CKD 3b Moderate to severe loss of 30-44 of kindey function CKD 4 Severe loss of kidney function 15-29 CKD 5 Kidney failure <15 Note: (go live 2024) the eGFR calculation was updated to the 2020 CKD-EPI creatinine equation without a race factor to calculate the eGFR results. Performed By: #### P SA, ADIFF, ANEU, GFR, LIPID, VIDH, CMP, CBC #### [place] [id number] #### PTH #### [place] [address] .MDWon 04-19-2024 Monocyte Distribution Width 20.39 High 0.00-20.00 [facility] [facility] Comment on above: Result Comment: For adults in ED, MDW>20.0 may be associated with a higher risk of sepsis during the first 12hrs of hospital admission Performed By: #### P SA, ADIFF, ANEU, GFR, LIPID, VIDH, CMP, CBC #### [place] [address] #### PTH #### [place] [address] .NEUABSon 04-19-2024 Neutrophil, Absolute 6.1 10 3/mcL Normal 2.3-8.1 [facility] Comment on above: Performed By: #### P SA, ADIFF, ANEU, GFR, LIPID, VIDH, CMP, CBC #### [place] [address] #### PTH #### [place] [address] BMPon 04-19-2024 BUN/Creatinine Ratio 15 ratio Normal 7-27 [facility] Comment on above: Performed By: #### P SA, ADIFF, ANEU, GFR, LIPID, VIDH, CMP, CBC #### [place] [address] #### PTH #### [place] [address] Calcium [Mass/Vol] 9.8 mg/dL Normal 8.4-10.2 [facility] Comment on above: Performed By: #### P SA, ADIFF, ANEU, GFR, LIPID, VIDH, CMP, CBC #### [place] [address] #### PTH #### [address] [address] Chloride [Moles/Vol] 105 mmol/L Normal 98-107 [facility] Comment on above: Performed By: #### P SA, ADIFF, ANEU, GFR, LIPID, VIDH, CMP, CBC #### [place] [address] #### PTH #### [address] [address] CO2 [Moles/Vol] 29 mmol/L Normal 23-31 [facility] Comment on above: Performed By: #### P SA, ADIFF, ANEU, GFR, LIPID, VIDH, CMP, CBC #### [place] [address] #### PTH #### [address] [address] Creatinine [Mass/Vol] 1.32 mg/dL High 0.70-1.30 [facility] Comment on above: Result Comment: Test ing performed on Siemens Dimension EXL analyzer using a modified kinetic Dm technique. Performed By: #### P SA, ADIFF, ANEU, GFR, LIPID, VIDH, CMP, CBC #### [place] [address] #### PTH #### [address] [address] Electrolyte Balance 8.0 mEq/L Normal 4.0-15.0 [facility] Comment on above: Performed By: #### P SA, ADIFF, ANEU, GFR, LIPID, VIDH, CMP, CBC #### [place] [address] #### PTH #### [address] [address] Glucose [Mass/Vol] 139 mg/dL High 83-110 [facility] Comment on above: Performed By: #### P SA, ADIFF, ANEU, GFR, LIPID, VIDH, CMP, CBC #### [address] [address] #### PTH #### [address] [address] Potassium [Moles/Vol] 3.9 mmol/L Normal 3.5-5.1 [facility] Comment on above: Performed By: #### P SA, ADIFF, ANEU, GFR, LIPID, VIDH, CMP, CBC #### [address] [address] #### PTH #### [address] [address] Sodium [Moles/Vol] 142 mmol/L Normal 136-145 [facility] Comment on above: Performed By: #### P SA, ADIFF, ANEU, GFR, LIPID, VIDH, CMP, CBC #### [place] [address] #### PTH #### [address] [address] Urea nitrogen [Mass/Vol] 20 mg/dL High 7-18 [facility] Comment on above: Performed By: #### P SA, ADIFF, ANEU, GFR, LIPID, VIDH, CMP, CBC #### [address] [address] #### PTH #### [address] [address] CBCon 04-19-2024 Erythrocyte distribution width (RBC) [Ratio] 14.2 % Normal 11.5-15.5 [facility] Comment on above: Performed By: #### P SA, ADIFF, ANEU, GFR, LIPID, VIDH, CMP, CBC #### [address] [address] #### PTH #### [address] [address] Hematocrit (Bld) [Volume fraction] 42.2 % Normal 40.0-52.0 [facility] Comment on above: Performed By: #### P SA, ADIFF, ANEU, GFR, LIPID, VIDH, CMP, CBC #### [place] [address] #### PTH #### [place] [address] Hgb 14.3 G/dL Normal 13.0-17.5 [facility] Comment on above: Performed By: #### P SA, ADIFF, ANEU, GFR, LIPID, VIDH, CMP, CBC #### [place] [address] #### PTH #### [place] [address] MCH (RBC) [Entitic mass] 30.3 pg Normal 27.0-33.0 [facility] Comment on above: Performed By: #### P SA, ADIFF, ANEU, GFR, LIPID, VIDH, CMP, CBC #### [place] [address] #### PTH #### [place] [address] MCHC 33.9 G/dL Normal 32.0-36.0 [facility] Comment on above: Performed By: #### P SA, ADIFF, ANEU, GFR, LIPID, VIDH, CMP, CBC #### [place] [address] #### PTH #### [place] [address] MCV (RBC) [Entitic vol] 89.4 fL Normal 81.0-100.0 [facility] Comment on above: Performed By: #### P SA, ADIFF, ANEU, GFR, LIPID, VIDH, CMP, CBC #### [place] [address] #### PTH #### [place] [address] Platelet 222 10 3/mcL Normal 150-450 [facility] Comment on above: Performed By: #### P SA, ADIFF, ANEU, GFR, LIPID, VIDH, CMP, CBC #### [place] [address] #### PTH #### [place] [address] Platelet mean volume (Bld) [Entitic vol] 9.7 fL Normal 6.4-10.5 [facility] Comment on above: Performed By: #### P SA, ADIFF, ANEU, GFR, LIPID, VIDH, CMP, CBC #### [place] [address] #### PTH #### [place] [address] RBC 4.72 10 6/mcL Normal 4.50-6.00 [facility] Comment on above: Performed By: #### P SA, ADIFF, ANEU, GFR, LIPID, VIDH, CMP, CBC #### [place] [address] #### PTH #### [place] [address] WBC 9.7 10 3/mcL Normal 4.5-10.8 [facility] Comment on above: Performed By: #### P SA, ADIFF, ANEU, GFR, LIPID, VIDH, CMP, CBC #### [place] [address] #### PTH #### [place] [address] CT ANGIOGRAPHY CHEST W/CONTR Antonietta 04-19-2024 CT ANGIOGRAPHY CHEST W/CONTRAST ORIGINAL EXAMINATION: CTA OF THE CHEST04/19/2024 11:49 am TECHNIQUE: CTA of the chest was performed after the administration of intravenous contrast. Multiplanar reformatted images are provided for review. MIP images are provided for review. Automated exposure control, iterative reconstruction, and/or weight based adjustment of the mA/kV was utilized to reduce the radiation dose to as low as reasonably achievable. Multiplanar and 3D reconstructions were created and reviewed on a separate workstation. COMPARISON: 10/30/2022. HISTORY: ORDERING SYSTEM PROVIDED HISTORY: Reason for Exam: dyspnea FINDINGS: There is adequate contrast opacification of the pulmonary arterial vasculature. There is no filling defect or vessel cutoff to indicate pulmonary embolus to the level of the segmental arteries. There is no right ventricular enlargement. The main pulmonary artery is enlarged which can be seen with pulmonary arterial hypertension. The thoracic aorta is normal in caliber. There is prominent aortic and coronary artery calcification. The heart is normal in size. There is no pericardial effusion. There are hilar, subcarinal, and mediastinal lymph nodes which are again enlarged. The central airways are patent. There is no pneumothorax or pleural fluid. There is diffuse emphysema. There is scarring within the lung bases. Within the peripheral right upper lobe, there is a new cavitary nodule with thick morse measuring 1.4 cm. There are a few nearby smaller satellite nodules, best seen on thin slices. There is again diffuse pattern osseous metastatic disease, grossly similar to 2022 exam. There are no acute upper abdominal findings. IMPRESSION: 1. No pulmonary embolism to the level of the segmental arteries. 2. New cavitary nodule in the right upper lobe with nearby smaller satellite nodules. This may be infectious or inflammatory, however malignancy is not excluded. Short-term follow-up CT advised. 3. Mediastinal and hilar adenopathy, similar to prior. 4. Emphysema. 5. Diffuse osseous metastatic disease, similar to prior. 6. Enlarged main pulmonary artery which can be seen with pulmonary arterial hypertension. 7. Prominent aortic and coronary artery calcification. Interpreted by: Lata oRd DO Preliminary Report By: Lata Rod DO Electronically signed By Lata Rod DO Dictated Date: 04/19/2024 11:58:00 AM Prelim Date: 04/19/2024 12:05:25 PM Sign Date: 04/19/2024 12:05:25 PM Ordering Provider: OSMEL Flores [facility] DIMERon 04-19-2024 D-Dimer 508 ng/mL D-DU High 0-230 [facility] Comment on above: Result Comment: Resu lts reported in D-DU ng/mL. Positive for D-dimer. A positive D-Dimer may occur in the following: DVT, PE, DIC, Trauma, Cancer, Sepsis, , Rheumatoid arthritis, Myocardial infarction and Cirrhosis. The presence of Rheumatoid Factor and HAMA (human mouse antibody) produces an overestimation of test results. The result of the D-Dimer test should be evaluated in the context of all the clinical and laboratory data available. In those instances where the laboratory result does not agree with the clinical evaluation, additional tests should be performed accordingly. If the D-Dimer result is used to exclude DVT or PE, the recommended cutoff value is less than 230 ng/mL. The D-Dimer result should not be used alone to rule in DVT/PE, but should be used in conjunction with a clinical pretest probability (PTP)assessment model to exclude venous thromboembolism (VTE) in outpatients suspected of deep venous thrombosis (DVT) and pulmonary embolism (PE). Performed By: #### P SA, ADIFF, ANEU, GFR, LIPID, VIDH, CMP, CBC #### [facility] [address], [place] [address] #### PTH #### [address] [address] LABORATORYOrdered By: SYSTEM SYSTEM on 04-19-2024 Troponin I.cardiac DL <= 0.01 ng/mL [Mass/Vol] 34 ng/L Normal 0 - 76 ng/L AO ADM SS Comment on above: Interpretive Data: H igh Sensitive Troponin I Reference Ranges: Female: 0-51 ng/L Male: 0-76 ng/L Testing performed on [employer] using a homogeneous sandwich chemiluminescent immunoassay based on MMR[employer] technology. Fibrin D-dimer DDU (PPP) [Mass/Vol] 508 ng/mL D-DU High 0 - 230 ng/mL D-DU AO [facility] SS Comment on above: Result Comment: Resu lts reported in D-DU ng/mL. Positive for D-dimer. A positive D-Dimer may occur in the following: DVT, PE, DIC, Trauma, Cancer, Sepsis, , Rheumatoid arthritis, Myocardial infarction and Cirrhosis. The presence of Rheumatoid Factor and HAMA (human mouse antibody) produces an overestimation of test results. Interpretive Data: T he result of the D-Dimer test should be evaluated in the context of all the clinical and laboratory data available. In those instances where the laboratory result does not agree with the clinical evaluation, additional tests should be performed accordingly. If the D-Dimer result is used to exclude DVT or PE, the recommended cutoff value is less than 230 ng/mL. The D-Dimer result should not be used alone to rule in DVT/PE, but should be used in conjunction with a clinical pretest probability (PTP)assessment model to exclude venous thromboembolism (VTE) in outpatients suspected of deep venous thrombosis (DVT) and pulmonary embolism (PE). Basophils (Bld) [#/Vol] 0.1 103/mcL Normal 0.0 - 0.2 10^3/mcL AO Workflow SS Basophils/100 WBC (Bld) 0.9 % Normal 0.0 - 2.5 % AO Workflow SS Calcium [Mass/Vol] 9.8 mg/dL Normal 8.4 - 10. 2 mg/dL AO ADM SS Chloride [Moles/Vol] 105 mmol/L Normal 98 - 10 7 mmol/L AO ADM SS CO2 [Moles/Vol] 29 mmol/L Normal 23 - 31 mmol/L AO ADM SS Creatinine [Mass/Vol] 1.32 mg/dL High 0.70 - 1.30 mg/dL AO ADM SS Comment on above: Interpretive Data: T esting performed on Siemens Dimension EXL analyzer using a modified kinetic Dm technique. Electrolyte Balance 8.0 mEq/L Normal 4.0 - 15 .0 mEq/L AO ADM SS Eosinophil, Absolute 0.4 103/mcL Normal 0.0 - 0 .7 10^3/mcL AO Workflow SS Eosinophils/100 WBC (Bld) 4.4 % Normal 0.0 - 7.0 % AO Workflow SS Erythrocyte distribution width (RBC) [Ratio] 14.2 % Normal 11.5 - 15.5 % AO Workflow SS Estimated Glomerular Filtration Rate 57 ml/min/1.73sqm Invalid Interpretation Code AO Chemistry S Comment on above: Interpretive Data: Stages of Chronic Kidney Disease (CKD) Stage Description eGFR(ml/min/1.73 sq.m.) CKD 1 Normal kidney function or >=90 normal kindney function with possible kidney damage (ex. Proteinuria) CKD 2 Kidney damage with mild loss 60-89 of kidney function CKD 3a Mild to moderate loss of kidney 45-59 function CKD 3b Moderate to severe loss of 30-44 of kindey function CKD 4 Severe loss of kidney function 15-29 CKD 5 Kidney failure <15 Note: (go live 2024) the eGFR calculation was updated to the 2020 CKD-EPI creatinine equation without a race factor to calculate the eGFR results. Glucose [Mass/Vol] 139 mg/dL High 83 - 110 mg/dL AO ADM SS Hematocrit (Bld) [Volume fraction] 42.2 % Normal 40.0 - 52.0 % AO Workflow SS Hemoglobin (Bld) [Mass/Vol] 14.3 G/dL Normal 13.0 - 17.5 G/dL AO Workflow SS Lymphocytes (Bld) [#/Vol] 2.4 103/mcL Normal 0.9 - 4.3 10^3/mcL AO Workflow SS Lymphocytes/100 WBC (Bld) 24.9 % Normal 20.0 - 40.0 % AO Workflow SS Magnesium [Mass/Vol] 2.0 mg/dL Normal 1.8 - 2 .4 mg/dL AO ADM SS MCH (RBC) [Entitic mass] 30.3 pg Normal 27.0 - 33.0 pg AO Workflow SS MCHC 33.9 G/dL Normal 32.0 - 36.0 G/dL AO Workflow SS MCV (RBC) [Entitic vol] 89.4 fL Normal 81.0 - 100.0 fL AO Workflow SS Monocyte distribution width Auto (Bld) [Entitic vol] 20.39 1 High 0.00 - 20.00 AO Workflow SS Comment on above: Result Comment: For adults in ED, MDW>20.0 may be associated with a higher risk of sepsis during the first 12hrs of hospital admission Monocytes (Bld) [#/Vol] 0.7 103/mcL Normal 0.1 - 1.4 10^3/mcL AO Workflow SS Monocytes/100 WBC (Bld) 7.2 % Normal 2.0 - 13.0 % AO Workflow SS Neutrophils (Bld) [#/Vol] 6.1 103/mcL Normal 2.3 - 8.1 10^3/mcL AO Workflow SS Neutrophils/100 WBC (Bld) 62.6 % Normal 50.0 - 75.0 % AO Workflow SS Platelet mean volume (Bld) [Entitic vol] 9.7 fL Normal 6.4 - 10.5 fL AO Workflow SS Platelets (Bld) [#/Vol] 222 103/mcL Normal 150 - 450 10^3/mcL AO Workflow SS Potassium [Moles/Vol] 3.9 mmol/L Normal 3.5 - 5.1 mmol/L AO ADM SS RBC (Bld) [#/Vol] 4.72 106/mcL Normal 4.50 - 6.0 0 10^6/mcL AO Workflow SS Sodium [Moles/Vol] 142 mmol/L Normal 136 - 145 mmol/L AO ADM SS Troponin I.cardiac DL <= 0.01 ng/mL [Mass/Vol] 10 ng/L Normal 0 - 76 ng/L AO ADM SS Comment on above: Interpretive Data: H igh Sensitive Troponin I Reference Ranges: Female: 0-51 ng/L Male: 0-76 ng/L Testing performed on Dimension EXL using a homogeneous sandwich chemiluminescent immunoassay based on [employer]MR[employer] technology. Urea nitrogen [Mass/Vol] 20 mg/dL High 7 - 18 mg/dL AO ADM SS Urea nitrogen/Creatinine [Mass ratio] 15 ratio Normal 7 - 27 ratio AO ADM SS WBC (Bld) [#/Vol] 9.7 103/mcL Normal 4.5 - 10.8 10^3/mcL AO Workflow SS MGon 04-19-2024 Magnesium [Mass/Vol] 2.0 mg/dL Normal 1.8-2.4 [facility] Comment on above: Performed By: #### P SA, ADIFF, ANEU, GFR, LIPID, VIDH, CMP, CBC #### [place] [address] #### PTH #### [address] 04-19-2024 High Sensitivity Troponin I 34 ng/L Normal 0-76 [facility] Comment on above: Result Comment: High Sensitive Troponin I Reference Ranges: Female: 0-51 ng/L Male: 0-76 ng/L Testing performed on [facility] using a homogeneous sandwich chemiluminescent immunoassay based on LOCI technology. Performed By: #### T [facility] #### [address] [address] High Sensitivity Troponin I 10 ng/L Normal 0-76 [facility] Comment on above: Result Comment: High Sensitive Troponin I Reference Ranges: Female: 0-51 ng/L Male: 0-76 ng/L Testing performed on Dimension EX using a homogeneous sandwich chemiluminescent immunoassay based on LOCI technology. Performed By: #### P SA, ADIFF, ANEU, GFR, LIPID, VIDH, CMP, CBC #### [place] [address] #### PTH #### [place] [id number] [address] [place] [address] XR CHEST 1 VIEWon 04-19-2024 XR CHEST 1 VIEW ORIGINAL HISTORY: Chest pain COMPARISON: 28 October 2022 FINDINGS: There is extensive irregular sclerosis throughout the visualized skeleton, and the lungs are somewhat obscured. There are mild peripheral opacities greater on the left. Pulmonary vasculature is unremarkable in appearance. IMPRESSION: Extensive metastatic disease to bone. Mild peripheral consolidation on the right. Interpreted by: Cecilia Barrios MD Preliminary Report By: Cecilia Barrios MD Electronically signed By Cecilia Barrios MD Dictated Date: 04/19/2024 9:20:24 AM Prelim Date: 04/19/2024 9:22:44 AM Sign Date: 04/19/2024 9:22:44 AM Ordering Provider: OSMEL ALEXIS [facility] Abd Aortic/IVC Duplex scanon 03-31-2024 Abd Aortic/IVC Duplex scan [facility] Cardi[facility] Services [address] [facility] [place] [address] Abd Aortic/IVC Duplex scan 03/31/24 08 MR#: [id number] Acct: [id number] Name: SALO NAGY Rep #: [id number] : 1950 74 From: Sreedhar Coppola MD Attending Dr: JOHNNY Corrales Status: REG CLI Ordering Dr: Gina Sharif Date: 03/31/24 Location: [facility] Sex: M C Admitted: Reason For Study: HX AAA Repair Aorta Measurements Aorta Doppler Measurements Proximal aorta measures2.07 x 1.98cm. in cross- Peak systolic flow velocities within the proximal sectional axis. aorta measure 79.6 cm/sec. Proximal aorta measures2.29cm. in longitudinal Peak systolic flow velocities within the mid aorta axis. measure 83.2 cm/sec. Mid aorta measures2.37 x 2.27cm. in cross- AAA Repair with EVAR noted sectional axis. Rt Limb Prox -61.4cm/s Mid aorta measures2.00cm. in longitudinal axis. Rt Limb Dist - 52.6 cm/s HX AAA Repair at Mid/Dist AO with EVAR. Lt Limb Prox - 57.0 cm/s Residual AAA measurese 4.22cm x 4.16cm Lt Limb Dist - 57.0 cm/s. Prox Rt EVAR Limb = 1.28cm x 1.22cm x 1.28cm Dist Rt EVAR Limb = 1.32cm x 1.30cm x 1.28cm Prox Lt EVAR Limb = 1.27cm x 1.23cm x 1.30cm Dist Lt EVAR Limb = 1.32cm x 1.30cm x 1.39cm. Left Iliac Artery Left iliac artery measures 1.18 x 1.18 cm. in the cross-sectional axis. Left iliac artery measures 1.18 cm. in the longitudinal axis. Right Iliac Artery Right iliac artery measures 1.04 x 1.04 cm. in the cross-sectional axis. Right iliac artery measures 1.14 cm. in the longitudinal axis. Peak systolic velocity in the right iliac artery measures 47.2 cm/sec. Procedure Aorta IVC Iliac vasculature or bypass grafts 00288. The exam was diagnostic. Exam performed in department. VL/Abd Aortic/IVC Duplex scan Interpretation Summary Patent aortic endograft with normal velocities and no evidence of stenosis. Residual aneurysm sac 4.22 cm with no endoleak visualized Ordering Physician: Gina Sharif Referring Physician: Silverio Bolivar Performed By: Rolly Zhu, T 03/31/241707 Date Sreedhar Coppola MD CC: HAND STEMMER-C Silverio Bolivar; JOHNNY Corrales Date Dictated: 03/31/24821 Date Transcribed: 03/31/241707 Guide Foreign Tour: Signed Normal [facility] Carotid Duplex Ultrasoundon 03-31-2024 Carotid Duplex Ultrasound [facility] Cardiovascular Services [address] [place] [address] Carotid Duplex Ultrasound 03/31/24 0915 MR#: [id number] Acct: [id number] Name: SALO NAGY Rep #: [id number] : 1950 74 From: Sreedhar Coppola MD Attending Dr: JOHNNY Corrales Status: REG CLI Ordering Dr: Gina Sharif Date: 03/31/24 Location: [facility] Sex: M C Admitted: Reason For Study: Hx Carotid Stenosis Rt. Velocities/BP Lt. Velocities/BP Prox CCA 56.0/10.7 cm/sec. Prox CCA 6109/13.5 cm/sec. Mid CCA 55.1/14.5 cm/sec. Mid CCA 49.8/10.2 cm/sec. Dist CCA 55.1/16.3 cm/sec. Dist CCA 48.7/12.4 cm/sec. Prox ICA 259.6/88.2 cm/sec. Prox ICA 119.2/33.6 cm/sec. Mid ICA 106.0/24.8 cm/sec. Mid ICA 58.6/21.2 cm/sec. Dist ICA 53.1/22.3 cm/sec. Dist ICA 64.4/23.1 cm/sec. Rt. ICA/CCA = 4.7. Lt. ICA/CCA = 2.4. Prox ECA 67.4/9.7 cm/sec. Prox ECA 139.0/11.6 cm/sec. Rt. Vert. 76.5/16.3 cm/sec. Lt. Vert. 40.4/0.0 cm/sec. Right Extracranial There is heterogeneous, irregular atherosclerotic plaque noted in the right common carotid artery. There is heterogeneous, irregular atherosclerotic plaque noted in the right internal carotid artery. There is heterogeneous, irregular atherosclerotic plaque noted in the right external carotid artery. Antegrade flow is noted in the right vertebral artery. Left Extracranial There is heterogeneous, irregular atherosclerotic plaque noted in the left common carotid artery. There is heterogeneous, irregular atherosclerotic plaque noted in the left internal carotid artery. There is heterogeneous, irregular atherosclerotic plaque noted in the left external carotid artery. Antegrade flow is noted in the left vertebral artery. Procedure Carotid Duplex 688[address]. This is a Carotid Duplex examination using B-mode, color flow and specral Doppler. Exam performed in department. VL/Carotid Duplex Ultrasound Interpretation Summary Severe (>70%) stenosis right extracranial internal carotid. Mild (<50%) stenosis left extracranial internal carotid. Patent and antegrade vertebrals bilaterally. Ordering Physician: Gina Sharif Referring Physician: Gina Sharif Performed By: Rolly Zhu RVT and Student 03/31/241704 Date Sreedhar Coppola MD CC: HAND STEMMER-Yelena Bolivar; JOHNNY Corrales Date Dictated: 03/31/24914 Date Transcribed: 03/31/241704 Guide Foreign Tour: Signed Normal [facility] Lower Ext Art Exam w/o Exerc noreen 03-31-2024 Lower Ext Art Exam w/o Exercis [facility] Cardiovascular Services [address] [place] [address] Lower Ext Art Exam w/o Exercis 03/31/24 0806 MR#: [id number] Acct: [id number] Name: SALO NAGY Rep #: [id number] : 1950 74 From: Sreedhar Coppola MD Attending Dr: JOHNNY Corrales Status: REG CLI Ordering Dr: Gina Sharif Date: 03/31/24 Location: [facility] Sex: M C Admitted: Reason For Study: PVD Procedure A bilateral lower extremity continuous wave Doppler with analog waveform analysis,segmental pressures,and ankle brachial indexes without exercise. Left Segmental Pressures Left brachial= 126mmHg. Left high thigh = 140mmHg. Left low thigh = 87mmHg. Left calf = 91mmHg. Left posterior tibial artery = 75mmHg. Left dorsalis pedis artery = 62mmHg. Left digit = 40 mmHg. The left dorsalis pedis waveforms are monophasic. The left posterior tibial artery waveforms are monophasic. Right Segmental Pressures Right brachial= 130mmHg. Right low thigh = 144mmHg. Right calf = 103mmHg. Right posterior tibial artery = 107mmHg. Right dorsalis pedis artery = 89mmHg. Right digit = 41 mmHg. The right dorsalis pedis waveforms are biphasic. The right posterior tibial artery waveforms are biphasic. Indices The right ankle brachial index by the dorsalis pedis is 0.68. The right ankle brachial index by the posterior tibial artery is 0.82. The right digital-brachial index is 0.32. The left ankle brachial index by the dorsalis pedis is 0.48. The left ankle brachial index by the posterior tibial artery is 0.58. The left digital-brachial index is 0.31. VL/Lower Ext Art Exam w/o Exercis Interpretation Summary Right LULA 0.82, moderate arterial insufficiency. Doppler/PVR waveforms and segmental pressures reveal distal SFA/popliteal disease. Left LULA 0.58, moderate arterial insufficiency. Doppler/PVR waveforms and segmental pressures reveal proximal SFA disease. Ordering Physician: Gina Sharif Referring Physician: Silverio Bolivar NP Performed By: Rolly Zhu RVT and Student 03/31/241702 Date Sreedhar Coppola MD CC: NISHA Bolivar; JOHNNY Corrales Date Dictated: 03/31/24805 Date Transcribed: 01/22/25 1703 Guide Foreign Tour: Signed [facility] CNCOon 03-26-2024 CNCO Letter Text Normal [facility] CNPNon 03-26-2024 CNPN Telephone (KIMMIE) -- SALO NAGY ([id number]) 1950 M Date Time Provider Department 03/26/24 LUIS MIGUEL GUY During your visit today, we recorded the following information about you: Yessy Maurer 03/26/2024 1:11 PM Signed This encounter opened in Error. Allergies As of Date: 03/26/2024 (No Known Allergies) Date Reviewed: 02/18/2024 Reviewed by: Emelina Westbrook Ma, MA - Fully Assessed Prescriptions as of 03/26/2024 - tamsulosin (FLOMAX) 0.4 mg Take 1 capsule by mouth once daily - enzalutamide (XTANDI) 40 mg tablet Take 4 tablets (160mg) by mouth once daily as directed by physician. - pantoprazole DR (PROTONIX) 40 mg tablet Take 40 mg by mouth once daily. - deljxelnljf-tapzfhzhm-ckul nter (TRELEGY ELLIPTA) 200-62.5-25 mcg inhalation powder Inhale 1 Puff as instructed once daily. - B-complex with vitamin C (SUPER B COMPLEX-VITAMIN C ORAL) Take 1 tablet by mouth once daily. - enzalutamide (XTANDI) 40 mg Take 4 capsules (160mg) by mouth once daily. - triamcinolone acetonide (NASACORT AQ) 55 mcg nasal inhaler Use 2 Sprays in each nostril once daily. - aspirin, enteric coated (ASPIRIN, ENTERIC COATED) 81 mg EC tablet Take 1 tablet by mouth once daily. - hydroCHLOROthiazide (HYDRODIURIL, ESIDRIX) 12.5 mg tablet Take 12.5 mg by mouth once daily. - iv contrast (will be provided with radiology test) CT Chest W -Inject, intravenously, once for 1 dose.No IV access, insert saline lock prior to the beginning of sedation, infusion, injection of imaging exam. Discontinue saline lock post exam. If Pt. has a central line or IVAD, may access for administration according to line specific nursing protocol. Once exam is complete flush line and de-access according to line specific nursing protocol in the CT contrast administration guidelines link. - docusate sodium (COLACE) 100 mg capsule Take 1 capsule by mouth twice daily as needed. - rosuvastatin (CRESTOR) 5 mg tablet Take 5 mg by mouth once daily. - ramipril (ALTACE) 10 mg capsule Take 10 mg by mouth once daily. - metoprolol tartrate, short acting, (LOPRESSOR) 25 mg tablet TAKE 1/2 (ONE-HALF) TABLET BY MOUTH TWICE DAILY - calcium carbonate-vitamin D3 (OSCAL+D) 500 mg(1,250mg) -400 unit chewable tablet Take 1 tablet by mouth once daily. Problem List As Of Date 03/26/2024 Noted Resolved Malignant neoplasm of prostate (HCC) [C61] 07/10/2018 Prostate cancer metastatic to bone (HCC) [C61, *07/24/2018 Essential hypertension [I10] 09/07/2018 CVA (cerebral vascular accident) (HCC) [I63.9] 09/07/2018 Neoplasm of unspecified behavior of bone, soft *06/18/2018 Panlobular emphysema (HCC) [J43.1] 09/07/2018 Claudication of both lower extremities (HCC) [I*09/07/2018 AAA (abdominal aortic aneurysm) without rupture*09/07/2018 Iliac aneurysm (HCC) [I72.3] 09/07/2018 Bilateral carotid artery stenosis [I65.23] 09/07/2018 Bone metastases (HCC) [C79.51] 01/14/2019 AAA (abdominal aortic aneurysm) (HCC) [I71.40] 10/29/2019 Acute urinary retention [R33.8] 10/30/2019 10/30/2019 Hypoxemia [R09.02] 08/28/2020 Acute pulmonary embolism without acute cor pulm*08/29/2020 Elevated LFTs [R79.89] 04/15/2022 Encounter Status:Closed by YESSY MAURER on 03/26/24 Normal [facility] MR/BMS.BVSon 03-09-2024 MR/BMS.BVS [facility] Vascular Surgery [address] [place] [address] OFFICE VISIT Date of Service: 03/09/24 MR#: [id number] Acct: [id number] Name: SALO NAGY Rep #: [id number] : 1950 Provider: JOHNNY Corrales Age/Sex: 74/M Location: BMS.BVS Status: Signed Intake Vital Signs 12/29/23 07:34 03/09/24 11:12 Height 5 ft 11 in Weight: 222 lb 224 lb BMI 30.9 BP 130/80 H 147/82 H Blood Pressure Location Lt brachial Lt brachial Position Sitting Sitting Respiration 16 16 Pulse 60 57 L Pulse Source Monitor Monitor Temp 97.1 F L 97.7 F L Temp Source Temporal Pulse Oximetry (%) 93 94 Oxygen Delivery Method room air room air Intake Visit Reasons: AAA, Femoral Artery Occlusion Chief Complaint: establish care Is patient in pain?: No Allergies tizanidine Allergy (Severe, Verified 03/09/24 11:15) Other Medications ???Medication ???Instructions ???Recorded ???Confirmed ???Type metoprolol tartrate 25 mg tablet 12.5 mg PO BID 07/30/18 03/09/24 History albuterol sulfate 90 mcg/actuation 1 inh inhalation Q4H PRN 01/01/23 03/09/24 History aerosol inhaler aspirin 81 mg tablet,delayed 81 mg PO DAILY 01/01/23 03/09/24 History release calcium carbonate (Super Calcium) 600 mg PO DAILY 01/01/23 03/09/24 History rosuvastatin 5 mg tablet 5 mg PO DAILY 01/01/23 03/09/24 History triamcinolone acetonide 0.1 % 1 applic topical BID 01/01/23 03/09/24 History topical cream ramipril 5 mg capsule 10 mg PO DAILY 01/07/23 03/09/24 History fluticasone fur. 200 mcg-umeclid 1 inh inhalation DAILY #3 ea 04/10/23 03/09/24 Rx 62.5 mcg-vilant 25 mcg inhalat.powder (Trelegy Ellipta) enzalutamide 40 mg tablet (Xtandi) 160 mg PO DAILY 05/14/23 03/09/24 History tamsulosin 0.4 mg capsule 0.4 mg PO QHS 05/14/23 03/09/24 History vitamin B complex 1 cap PO DAILY 05/14/23 03/09/24 History pantoprazole 40 mg tablet,delayed 40 mg PO QDAY 03/09/24 03/09/24 History release Have you fallen in the past year?: No PFSH Medical History (Updated 03/09/24 @ 14:01 by JOHNNY Corrales) Iliac artery aneurysm, right Abdominal aortic aneurysm (AAA) Change in mole Arthritis Back problem Surgical History (Updated 03/09/24 @ 12:26 by JOHNNY Corrales) Hx of colonoscopy Hx of prostate biopsy Hx of cystoscopy Family History Mother Breast cancer Thyroid disorder Brother Heart disease Lupus Social History Smoking Status: Former smoker second hand exposure: Yes alcohol intake: former substance use type: does not use caffeine: Yes Type: coffee Number of servings: 6 what type of physical activity do you participate in: none frequency: does not exercise HPI HPI HPI: SALO NAGY, is a 74 M who presents to the office today for evaluation of AAA and bilateral iliac aneurysm s/p EVAR and PAD as referred from his PCP at [facility]. He is accompanied to his appointment today by his . They think he is here for evaluation of some intermittent chest pain. He reports that for the last several months he has noted a burning sensation right under his sternum and sometimes a sensation of pressure through this area with activity. To get this pain to go away, he rests and takes TUMS and it typically dissipates in a few minutes. Every time it happens he does both, he is not sure if just the rest or just the TUMS improve this pain. He does not note the pain at any times of rest, and not necessarily just after meals. He denies any associated SOB, L arm or jaw pain, diaphoresis. He does have generally decreased exercise tolerance and significant increase in his lower extremity fatigue since about December. He reports he had an upper GI study which showed a hiatal hernia. He does not think he has had any cardiac testing. He denies any history of NE, PCI, CHF, arrhythmias. He reports his PCP was c oncerned this could be related to his prior EVAR. He had EVAR for repair of his infrarenal AAA and bilateral ANGEL aneurysm in 10/[address] Sanchez at [facility]. For the first year or so after the repair he did follow-up with Dr. Sanchez, but after 2020 stopped returning to [facility] for monitoring. He reports the AAA/ANGEL aneurysms were discovered incidentally during his workup for prostate cancer in 2019. Reviewed [facility] records in [employer]. At the time of his repair, AAA was 4.1 cm; R ANGEL 3.6 cm; L ANGEL 2.0 cm; R SFA occluded near the origin at that time. He recently had abdominal aortic duplex at [place] which had suboptimal images due to bowel gas so advanced imaging was obtained with CTA Abd/Pelvis completed at [place]. This reported stable aneurysm repair sites without evidence of endoleak, aortic ath (more content not included)... Normal [facility] .Auto Diffon 02-19-2024 Basophil, Absolute 0.1 10 3/mcL Normal 0.0-0.2 [facility] Comment on above: Performed By: #### P SA, ADIFF, ANEU, GFR, LIPID, VIDH, CMP, CBC #### [address] [address] #### PTH #### [address] [address] Basophils/100 WBC (Bld) 0.5 % Normal 0.0-2.5 [facility] Comment on above: Performed By: #### P SA, ADIFF, ANEU, GFR, LIPID, VIDH, CMP, CBC #### [address] [address] #### PTH #### [address] [address] Eosinophil, Absolute 0.5 10 3/mcL Normal 0.0-0.7 [facility] Comment on above: Performed By: #### P SA, ADIFF, ANEU, GFR, LIPID, VIDH, CMP, CBC #### [place] [address] #### PTH #### [address] [address] Eosinophils/100 WBC (Bld) 4.7 % Normal 0.0-7.0 [facility] Comment on above: Performed By: #### P SA, ADIFF, ANEU, GFR, LIPID, VIDH, CMP, CBC #### [place] [address] #### PTH #### [address] [address] Lymphocyte, Absolute 2.3 10 3/mcL Normal 0.9-4.3 [facility] Comment on above: Performed By: #### P SA, ADIFF, ANEU, GFR, LIPID, VIDH, CMP, CBC #### [place] [address] #### PTH #### [address] [address] Lymphocytes/100 WBC (Bld) 21.2 % Normal 20.0-40.0 [facility] Comment on above: Performed By: #### P SA, ADIFF, ANEU, GFR, LIPID, VIDH, CMP, CBC #### [place] [address] #### PTH #### [address] [address] Monocyte, Absolute 0.7 10 3/mcL Normal 0.1-1.4 [facility] Comment on above: Performed By: #### P SA, ADIFF, ANEU, GFR, LIPID, VIDH, CMP, CBC #### [place] [address] #### PTH #### [address] [address] Monocytes/100 WBC (Bld) 6.5 % Normal 2.0-13.0 [facility] Comment on above: Performed By: #### P SA, ADIFF, ANEU, GFR, LIPID, VIDH, CMP, CBC #### [address] [address] #### PTH #### [address] [address] Neutrophils/100 WBC (Bld) 67.1 % Normal 50.0-75.0 [facility] Comment on above: Performed By: #### P SA, ADIFF, ANEU, GFR, LIPID, VIDH, CMP, CBC #### [address] [address] #### PTH #### [address] [address] .GFRon 02-19-2024 GFR 55 ml/min/1.73sqm Normal [facility] Comment on above: Result Comment: GFR Population mean for , Non- Americans Ages 20-29 = 116 mL/min/1.73 sq.m. Ages 30-39 = 107 mL/min/1.73 sq.m. Ages 40-49 = 99 mL/min/1.73 sq.m. Ages 50-59 = 93 mL/min/1.73 sq.m. Ages 60-69 = 85 mL/min/1.73 sq.m. Ages 70+ = 75 mL/min/1.73 sq.m. Chronic Kidney Disease: Less than 60 mL/min/1.73 square meters End Stage Renal Disease: Less than 15 mL/min/1.73 square meters Performed By: #### P SA, ADIFF, ANEU, GFR, LIPID, VIDH, CMP, CBC #### [address] [address] #### PTH #### [address] [address] GFR Non- 46 ml/min/1.73sqm Normal [facility] Comment on above: Result Comment: GFR Population mean for , Non- Americans Ages 20-29 = 116 mL/min/1.73 sq.m. Ages 30-39 = 107 mL/min/1.73 sq.m. Ages 40-49 = 99 mL/min/1.73 sq.m. Ages 50-59 = 93 mL/min/1.73 sq.m. Ages 60-69 = 85 mL/min/1.73 sq.m. Ages 70+ = 75 mL/min/1.73 sq.m. Chronic Kidney Disease: Less than 60 mL/min/1.73 square meters End Stage Renal Disease: Less than 15 mL/min/1.73 square meters Performed By: #### P SA, ADIFF, ANEU, GFR, LIPID, VIDH, CMP, CBC #### [place] [address] #### PTH #### [address] [address] .NEUABSon 02-19-2024 Neutrophil, Absolute 7.2 10 3/mcL Normal 2.3-8.1 [facility] Comment on above: Performed By: #### P SA, ADIFF, ANEU, GFR, LIPID, VIDH, CMP, CBC #### [place] [address] #### PTH #### [place] [address] A1Con 02-19-2024 Glucose [Mass/Vol] 134 mg/dL Normal [facility] Comment on above: Result Comment: Grisel mated Average Glucose calculated by equation ((28.7xA1C)-46.7) Estimated average glucose (eAG) is a calculated value from Hemoglobin A1C and is business services sales representative of the average blood glucose level in the last 2-3 month period. Normal range: less than 114 mg/dL Performed By: #### P SA, ADIFF, ANEU, GFR, LIPID, VIDH, CMP, CBC #### [place] [address] #### PTH #### [place] [address] HbA1c (Bld) [Mass fraction] 6.3 % Normal 4.3-6.4 [facility] Comment on above: Performed By: #### P SA, ADIFF, ANEU, GFR, LIPID, VIDH, CMP, CBC #### [place] [address] #### PTH #### [place] [address] CBCon 02-19-2024 Erythrocyte distribution width (RBC) [Ratio] 14.1 % Normal 11.5-15.5 [facility] Comment on above: Performed By: #### P SA, ADIFF, ANEU, GFR, LIPID, VIDH, CMP, CBC #### [place] [address] #### PTH #### [place] [address] Hematocrit (Bld) [Volume fraction] 42.1 % Normal 40.0-52.0 [facility] Comment on above: Performed By: #### P SA, ADIFF, ANEU, GFR, LIPID, VIDH, CMP, CBC #### [place] [address] #### PTH #### [place] [address] Hgb 14.0 G/dL Normal 13.0-17.5 [facility] Comment on above: Performed By: #### P SA, ADIFF, ANEU, GFR, LIPID, VIDH, CMP, CBC #### [place] [address] #### PTH #### [place] [address] MCH (RBC) [Entitic mass] 30.1 pg Normal 27.0-33.0 [facility] Comment on above: Performed By: #### P SA, ADIFF, ANEU, GFR, LIPID, VIDH, CMP, CBC #### [place] [address] #### PTH #### [place] [address] MCHC 33.4 G/dL Normal 32.0-36.0 [facility] Comment on above: Performed By: #### P SA, ADIFF, ANEU, GFR, LIPID, VIDH, CMP, CBC #### [place] [address] #### PTH #### [place] [address] MCV (RBC) [Entitic vol] 90.3 fL Normal 81.0-100.0 [facility] Comment on above: Performed By: #### P SA, ADIFF, ANEU, GFR, LIPID, VIDH, CMP, CBC #### [place] [address] #### PTH #### [place] [address] Platelet 243 10 3/mcL Normal 150-450 [facility] Comment on above: Performed By: #### P SA, ADIFF, ANEU, GFR, LIPID, VIDH, CMP, CBC #### [place] [address] #### PTH #### [place] [address] Platelet mean volume (Bld) [Entitic vol] 9.9 fL Normal 6.4-10.5 [facility] Comment on above: Performed By: #### P SA, ADIFF, ANEU, GFR, LIPID, VIDH, CMP, CBC #### [place] [address] #### PTH #### [place] [address] RBC 4.66 10 6/mcL Normal 4.50-6.00 [facility] Comment on above: Performed By: #### P SA, ADIFF, ANEU, GFR, LIPID, VIDH, CMP, CBC #### [place] [address] #### PTH #### [place] [address] WBC 10.7 10 3/mcL Normal 4.5-10.8 [facility] Comment on above: Performed By: #### P SA, ADIFF, ANEU, GFR, LIPID, VIDH, CMP, CBC #### [place] [address] #### PTH #### [address] [address] CMPon 02-19-2024 Albumin Level 3.6 G/dL Normal 3.4-4.8 [facility] Comment on above: Performed By: #### P SA, ADIFF, ANEU, GFR, LIPID, VIDH, CMP, CBC #### [address] [address] #### PTH #### [place] [address] Albumin/Globulin [Mass ratio] 1.1 {ratio} Normal 1.1-2.5 [facility] Comment on above: Performed By: #### P SA, ADIFF, ANEU, GFR, LIPID, VIDH, CMP, CBC #### [address] [address] #### PTH #### [place] [address] ALP [Catalytic activity/Vol] 98 U/L Normal 40-135 [facility] Comment on above: Performed By: #### P SA, ADIFF, ANEU, GFR, LIPID, VIDH, CMP, CBC #### [place] [address] #### PTH #### [place] [address] ALT [Catalytic activity/Vol] 27 U/L Normal 16-63 [facility] Comment on above: Performed By: #### P SA, ADIFF, ANEU, GFR, LIPID, VIDH, CMP, CBC #### [address] [address] #### PTH #### [address] [address] AST [Catalytic activity/Vol] 21 U/L Normal 10-40 [facility] Comment on above: Performed By: #### P SA, ADIFF, ANEU, GFR, LIPID, VIDH, CMP, CBC #### [address] [address] #### PTH #### [place] [id number] Bili Total 0.5 mg/dL Normal 0.2-1.0 [facility] Comment on above: Result Comment: Use of this assay is not recommended for patients undergoing treatment with eltrombopag due to the potential for falsely elevated results. Performed By: #### P SA, ADIFF, ANEU, GFR, LIPID, VIDH, CMP, CBC #### [place] [address] #### PTH #### [place] [address] BUN/Creatinine Ratio 16 ratio Normal 7-27 [facility] Comment on above: Performed By: #### P SA, ADIFF, ANEU, GFR, LIPID, VIDH, CMP, CBC #### [place] [address] #### PTH #### [place] [address] Calcium [Mass/Vol] 9.5 mg/dL Normal 8.4-10.2 [facility] Comment on above: Performed By: #### P SA, ADIFF, ANEU, GFR, LIPID, VIDH, CMP, CBC #### [place] [address] #### PTH #### [place] [address] Chloride [Moles/Vol] 102 mmol/L Normal 98-107 [facility] Comment on above: Performed By: #### P SA, ADIFF, ANEU, GFR, LIPID, VIDH, CMP, CBC #### [place] [address] #### PTH #### [place] [address] CO2 [Moles/Vol] 28 mmol/L Normal 23-31 [facility] Comment on above: Performed By: #### P SA, ADIFF, ANEU, GFR, LIPID, VIDH, CMP, CBC #### [place] [address] #### PTH #### [place] [address] Creatinine [Mass/Vol] 1.51 mg/dL High 0.70-1.30 [facility] Comment on above: Result Comment: Test ing performed on Siemens Dimension EXL analyzer using a modified kinetic Dm technique. Performed By: #### P SA, ADIFF, ANEU, GFR, LIPID, VIDH, CMP, CBC #### [place] [address] #### PTH #### [place] [address] Electrolyte Balance 9.0 mEq/L Normal 4.0-15.0 [facility] Comment on above: Performed By: #### P SA, ADIFF, ANEU, GFR, LIPID, VIDH, CMP, CBC #### [place] [address] #### PTH #### [place] [address] Globulin 3.2 G/dL Normal [facility] Comment on above: Performed By: #### P SA, ADIFF, ANEU, GFR, LIPID, VIDH, CMP, CBC #### [place] [address] #### PTH #### [place] [address] Glucose [Mass/Vol] 125 mg/dL High 83-110 [facility] Comment on above: Performed By: #### P SA, ADIFF, ANEU, GFR, LIPID, VIDH, CMP, CBC #### [place] [address] #### PTH #### [place] [address] Potassium [Moles/Vol] 4.3 mmol/L Normal 3.5-5.1 [facility] Comment on above: Performed By: #### P SA, ADIFF, ANEU, GFR, LIPID, VIDH, CMP, CBC #### [place] [address] #### PTH #### [address] [address] Sodium [Moles/Vol] 139 mmol/L Normal 136-145 [facility] Comment on above: Performed By: #### P SA, ADIFF, ANEU, GFR, LIPID, VIDH, CMP, CBC #### [address] [address] #### PTH #### [address] [address] Total Protein 6.8 G/dL Normal 6.4-8.2 [facility] Comment on above: Performed By: #### P SA, ADIFF, ANEU, GFR, LIPID, VIDH, CMP, CBC #### [address] [address] #### PTH #### [address] [address] Urea nitrogen [Mass/Vol] 24 mg/dL High 7-18 [facility] Comment on above: Performed By: #### P SA, ADIFF, ANEU, GFR, LIPID, VIDH, CMP, CBC #### [address] [address] #### PTH #### [address] [address] LABORATORYOrdered By: SYSTEM SYSTEM on 02-19-2024 25-hydroxyvitamin D3 [Mass/Vol] 46.9 ng/mL Invalid Interpretation Code AO ADM SS Comment on above: Interpretive Data: I nterpretive Values Based on Total 25(OH) Vitamin D: Deficient <20 ng/mL Insufficient 20 - <30 ng/mL Sufficient 30-100 ng/mL Albumin BCP dye [Mass/Vol] 3.6 G/dL Normal 3.4 - 4.8 G/dL AO ADM SS Albumin/Globulin [Mass ratio] 1.1 {ratio} Normal 1.1 - 2.5 ratio AO ADM SS ALP [Catalytic activity/Vol] 98 U/L Normal 40 - 135 U/L AO ADM SS ALT With P-5'-P [Catalytic activity/Vol] 27 U/L Normal 16 - 63 U/L AO ADM SS AST With P-5'-P [Catalytic activity/Vol] 21 U/L Normal 10 - 40 U/L AO ADM SS Basophils (Bld) [#/Vol] 0.1 103/mcL Normal 0.0 - 0.2 10^3/mcL AO Workflow SS Basophils/100 WBC (Bld) 0.5 % Normal 0.0 - 2.5 % AO Workflow SS Bilirubin [Mass/Vol] 0.5 mg/dL Normal 0.2 - 1 .0 mg/dL AO ADM SS Comment on above: Interpretive Data: U se of this assay is not recommended for patients undergoing treatment with eltrombopag due to the potential for falsely elevated results. Calcium [Mass/Vol] 9.5 mg/dL Normal 8.4 - 10. 2 mg/dL AO ADM SS Chloride [Moles/Vol] 102 mmol/L Normal 98 - 10 7 mmol/L AO ADM SS CO2 [Moles/Vol] 28 mmol/L Normal 23 - 31 mmol/L AO ADM SS Creatinine [Mass/Vol] 1.51 mg/dL High 0.70 - 1.30 mg/dL AO ADM SS Comment on above: Interpretive Data: T esting performed on Siemens Dimension EXL analyzer using a modified kinetic Dm technique. Electrolyte Balance 9.0 mEq/L Normal 4.0 - 15 .0 mEq/L AO ADM SS Eosinophil, Absolute 0.5 103/mcL Normal 0.0 - 0 .7 10^3/mcL AO Workflow SS Eosinophils/100 WBC (Bld) 4.7 % Normal 0.0 - 7.0 % AO Workflow SS Erythrocyte distribution width (RBC) [Ratio] 14.1 % Normal 11.5 - 15.5 % AO Workflow SS GFR/1.73 sq M.predicted among blacks MDRD (S/P/Bld) [Vol rate/Area] 55 ml/min/1.73sqm Invalid Interpretation Code AO Chemistry S Comment on above: Interpretive Data: GFR Population mean for , Non- Americans Ages 20-29 = 116 mL/min/1.73 sq.m. Ages 30-39 = 107 mL/min/1.73 sq.m. Ages 40-49 = 99 mL/min/1.73 sq.m. Ages 50-59 = 93 mL/min/1.73 sq.m. Ages 60-69 = 85 mL/min/1.73 sq.m. Ages 70+ = 75 mL/min/1.73 sq.m. Chronic Kidney Disease: Less than 60 mL/min/1.73 square meters End Stage Renal Disease: Less than 15 mL/min/1.73 square meters GFR/1.73 sq M.predicted among non-blacks MDRD (S/P/Bld) [Vol rate/Area] 46 ml/min/1.73sqm Invalid Interpretation Code AO Chemistry S Comment on above: Interpretive Data: GFR Population mean for , Non- Americans Ages 20-29 = 116 mL/min/1.73 sq.m. Ages 30-39 = 107 mL/min/1.73 sq.m. Ages 40-49 = 99 mL/min/1.73 sq.m. Ages 50-59 = 93 mL/min/1.73 sq.m. Ages 60-69 = 85 mL/min/1.73 sq.m. Ages 70+ = 75 mL/min/1.73 sq.m. Chronic Kidney Disease: Less than 60 mL/min/1.73 square meters End Stage Renal Disease: Less than 15 mL/min/1.73 square meters Globulin 3.2 G/dL Invalid Interpretation Code AO ADM SS Glucose [Mass/Vol] 125 mg/dL High 83 - 110 mg/dL AO ADM SS Glucose [Mass/Vol] 134 mg/dL Invalid Interpretation Code AO Chemistry S Comment on above: Interpretive Data: E stimated average glucose (eAG) is a calculated value from Hemoglobin A1C and is business services sales representative of the average blood glucose level in the last 2-3 month period. Normal range: less than 114 mg/dL HbA1c (Bld) [Mass fraction] 6.3 % Normal 4.3 - 6.4 % AO ADM SS Hematocrit (Bld) [Volume fraction] 42.1 % Normal 40.0 - 52.0 % AO Workflow SS Hemoglobin (Bld) [Mass/Vol] 14.0 G/dL Normal 13.0 - 17.5 G/dL AO Workflow SS Lymphocytes (Bld) [#/Vol] 2.3 103/mcL Normal 0.9 - 4.3 10^3/mcL AO Workflow SS Lymphocytes/100 WBC (Bld) 21.2 % Normal 20.0 - 40.0 % AO Workflow SS MCH (RBC) [Entitic mass] 30.1 pg Normal 27.0 - 33.0 pg AO Workflow SS MCHC 33.4 G/dL Normal 32.0 - 36.0 G/dL AO Workflow SS MCV (RBC) [Entitic vol] 90.3 fL Normal 81.0 - 100.0 fL AO Workflow SS Monocytes (Bld) [#/Vol] 0.7 103/mcL Normal 0.1 - 1.4 10^3/mcL AO Workflow SS Monocytes/100 WBC (Bld) 6.5 % Normal 2.0 - 13.0 % AO Workflow SS Neutrophils (Bld) [#/Vol] 7.2 103/mcL Normal 2.3 - 8.1 10^3/mcL AO Workflow SS Neutrophils/100 WBC (Bld) 67.1 % Normal 50.0 - 75.0 % AO Workflow SS Parathyrin.intact [Mass/Vol] 36.3 pg/mL Normal 18.5 - 88.0 pg/mL AH ADM SS Platelet mean volume (Bld) [Entitic vol] 9.9 fL Normal 6.4 - 10.5 fL AO Workflow SS Platelets (Bld) [#/Vol] 243 103/mcL Normal 150 - 450 10^3/mcL AO Workflow SS Potassium [Moles/Vol] 4.3 mmol/L Normal 3.5 - 5.1 mmol/L AO ADM SS Prostate specific Ag [Mass/Vol] 12.68 ng/mL High 0.00 - 4.00 ng/mL AO ADM SS Protein [Mass/Vol] 6.8 G/dL Normal 6.4 - 8.2 G/dL AO ADM SS RBC (Bld) [#/Vol] 4.66 106/mcL Normal 4.50 - 6.0 0 10^6/mcL AO Workflow SS Sodium [Moles/Vol] 139 mmol/L Normal 136 - 145 mmol/L AO ADM SS Urea nitrogen [Mass/Vol] 24 mg/dL High 7 - 18 mg/dL AO ADM SS Urea nitrogen/Creatinine [Mass ratio] 16 ratio Normal 7 - 27 ratio AO ADM SS WBC (Bld) [#/Vol] 10.7 103/mcL Normal 4.5 - 10.8 10^3/mcL AO Workflow SS LABORATORYOrdered By: Neto Guardado on 02-19-2024 Cholesterol [Mass/Vol] 197 mg/dL Normal 0 - 200 mg/dL AO ADM SS Comment on above: Interpretive Data: C holesterol Reference Interval: Less than 200 Desirable 200-239 Borderline high risk 240 and above High risk Cholesterol in HDL [Mass/Vol] 67 mg/dL High 40 - 60 mg/dL AO ADM SS Cholesterol in LDL [Mass/Vol] 96 mg/dL Normal 0 - 130 mg/dL AO ADM SS Triglyceride [Mass/Vol] 168 mg/dL High 0 - 150 mg/dL AO ADM SS Comment on above: Interpretive Data: T riglyceride Reference Interval: Less than 150 Normal 150-199 Borderline high risk 200-499 High risk 500 or higher Very high risk LIPIDon 02-19-2024 Cholesterol [Mass/Vol] 197 mg/dL Normal 0-200 [facility] Comment on above: Result Comment: Chol esterol Reference Interval: Less than 200 Desirable 200-239 Borderline high risk 240 and above High risk Performed By: #### P SA, ADIFF, ANEU, GFR, LIPID, VIDH, CMP, CBC #### [address] [address] #### PTH #### [address] [address] Cholesterol in HDL [Mass/Vol] 67 mg/dL High 40-60 [facility] Comment on above: Performed By: #### P SA, ADIFF, ANEU, GFR, LIPID, VIDH, CMP, CBC #### [address] [address] #### PTH #### [address] [address] Cholesterol in LDL [Mass/Vol] 96 mg/dL Normal 0-130 [facility] [facility] Comment on above: Performed By: #### P SA, ADIFF, ANEU, GFR, LIPID, VIDH, CMP, CBC #### [address] [address] #### PTH #### [address] [address] Triglyceride [Mass/Vol] 168 mg/dL High 0-150 [facility] Comment on above: Result Comment: Trig lyceride Reference Interval: Less than 150 Normal 150-199 Borderline high risk 200-499 High risk 500 or higher Very high risk Performed By: #### P SA, ADIFF, ANEU, GFR, LIPID, VIDH, CMP, CBC #### [address] [address] #### PTH #### [place] [address] PSAon 02-19-2024 Prostate Specific Antigen 12.68 ng/mL High 0.00-4.00 [facility] Comment on above: Performed By: #### P SA, ADIFF, ANEU, GFR, LIPID, VIDH, CMP, CBC #### [address] [address] #### PTH #### [place] [address] PTHon 02-19-2024 PTH, Intact 36.3 pg/mL Normal 18.5-88.0 [facility] Comment on above: Performed By: #### P SA, ADIFF, ANEU, GFR, LIPID, VIDH, CMP, CBC #### [place] [address] #### PTH #### [place] [address] VIDHon 02-19-2024 Vit. D 25-Hydroxy 46.9 ng/mL Normal [facility] Comment on above: Result Comment: Inte rpretive Values Based on Total 25(OH) Vitamin D: Deficient <20 ng/mL Insufficient 20 - <30 ng/mL Sufficient 30-100 ng/mL Performed By: #### P SA, ADIFF, ANEU, GFR, LIPID, VIDH, CMP, CBC #### [place] [address] #### PTH #### [place] [address] CNOVSPon 02-18-2024 CNOVSP Visit (SP) Office ([facility]) -- SALO NAGY ([id number]) 1950 M Date Time Provider Department 02/18/24 1:20 PM LUIS MIGUEL GUY During your visit today, we recorded the following information about you: Temperature Pulse Blood pressure Weight 97.8 degrees 62/minute 131/81 101.2 kg Luis Miguel Guy MD 02/18/2024 3:25 PM Signed (Elements copied from my note dated November 26, 2023, have been reviewed and updated where appropriate, and all reflect current assessment and medical decision making from today's encounter, February 18, 2024) HISTORY OF PRESENT ILLNESS: Salo Nagy is a 72 year old male dx prostate cancer 2019 on basis of back pain found bone lesions, PSA >3000 at that time. Prostate biopsy at that time showed adenocarcinoma. Started lupron and zytiga after casodex blockade. PSA responded well, PSA tripled in fall Switched to xtandi, delay in starting due to obtaining med. Here for follow up, reviewed PSA, rising, DT > 3 months Feeling well, passing urine well. Having some gassy GI symptoms, CT scans done, saw mediastinal adenopathy., also note osseous blastic mets. PET scan pending at [facility] was negative for actionable mutation. CLINICAL IMPRESSION: Prostate cancer metastatic to bone. PSA climbing, absolute number is still pretty low, but DT might be shortening RECOMMENDATION/PLAN: 1. continue enzalutamide. Plan taxotere if PSA DT persists less than 3 months on xtandi. Info given previously. Continuing lupron and zometa. 2. Will check PSA again in 3 months. Suspect we'll need to switch to taxotere soon. Written and verbal health teaching given to patient, patient verbalizes understanding and agrees with treatment plan. PAST MEDICAL HISTORY Diagnosis Date Aneurysm of infrarenal abdominal aorta (HCC) Bone metastases 07/24/2018 CVA (cerebral vascular accident) (HCC) 09/07/2018 Elevated LFTs 04/15/2022 Essential hypertension 09/07/2018 History of CVA (cerebrovascular accident) Malignant neoplasm of prostate (HCC) 07/10/2018 Panlobular emphysema (HCC) 09/07/2018 PAST SURGICAL HISTORY Procedure Laterality Date CYSTOSCOPY 01/09/2018 TRURL ELECTROSURG RESCJ PROSTATE BLEED COMPLETE FAMILY HISTORY Problem Relation Age of Onset Thyroid Mother Breast Cancer Mother Heart Father Heart Brother Aneurysm No Family History Social History Tobacco Use Smoking status: Former Current packs/day: 0.00 Average packs/day: 1 pack/day for 45.0 years (45.0 ttl pk-yrs) Types: Cigarettes Start date: 04/18/1974 Quit date: 04/18/2019 Years since quittin.8 Smokeless tobacco: Never Vaping Use Vaping status: Never Used Substance Use Topics Alcohol use: Never Drug use: Never ALLERGIES: ALLERGIES No Known Allergies CURRENT OUTPATIENT MEDICATIONS: pantoprazole DR (PROTONIX) 40 mg tablet Take 40 mg by mouth once daily. tamsulosin (FLOMAX) 0.4 mg Take 1 capsule by mouth once daily wzblysgkrpb-zbkpwwzma-nxng nter (TRELEGY ELLIPTA) 200-62.5-25 mcg inhalation powder Inhale 1 Puff as instructed once daily. B-complex with vitamin C (SUPER B COMPLEX-VITAMIN C ORAL) Take 1 tablet by mouth once daily. enzalutamide (XTANDI) 40 mg Take 4 capsules (160mg) by mouth once daily. triamcinolone acetonide (NASACORT AQ) 55 mcg nasal inhaler Use 2 Sprays in each nostril once daily. aspirin, enteric coated (ASPIRIN, ENTERIC COATED) 81 mg EC tablet Take 1 tablet by mouth once daily. docusate sodium (COLACE) 100 mg capsule Take 1 capsule by mouth twice daily as needed. rosuvastatin (CRESTOR) 5 mg tablet Take 5 mg by mouth once daily. ramipril (ALTACE) 10 mg capsule Take 10 mg by mouth once daily. metoprolol tartrate, short acting, (LOPRESSOR) 25 mg tablet TAKE 1/2 (ONE-HALF) TABLET BY MOUTH TWICE DAILY calcium carbonate-vitamin D3 (OSCAL+D) 500 mg(1,250mg) -400 unit chewable tablet Take 1 tablet by mouth once daily. hydroCHLOROthiazide (HYDRODIURIL, ESIDRIX) 12.5 mg tablet Take 12.5 mg by mouth once daily. (Patient not taking: Reported on 03/18/2023) iv contrast (will be provided with radiology test) CT Chest W -Inject, intravenously, once for 1 dose.No IV access, insert saline lock prior to the beginning of sedation, infusion, injection of imaging exam. Discontinue saline lock post exam. If Pt. has a central line or IVAD, may access for administration according to line specific nursing protocol. Once exam is complete flush line and de-access according to line specific nursing protocol in the CT contrast administration guidelines link. REVIEW OF SYSTEMS: GENERAL: No fever, night sweats, weight loss or malaise. All other reviewed and negative other than HPI. PHYSICAL EXAMINATION: VITAL SIGNS: BP 131/81 Pulse 62 Temp (Src) 97.8 (Temporal) Wt 223 lb (101.2kg) SpO2 93% GENERAL APPEARANCE: Well appearing, in no acute distress, alert and oriented x3, well (more content not included)... Normal [facility] CNPNon 02-18-2024 CNPN Telephone ([facility]) -- SALO NAGY ([id number]) 1950 M Date Time Provider Department 02/18/24 TANJA PATEL During your visit today, we recorded the following information about you: Tanja Patel LISW 02/18/2024 3:23 PM Signed SOCIAL WORK FOLLOW UP NOTE: [facility] Date of service: February 18, 2024 Salo Nagy is being seen for a follow up social work visit. Today's visit includes: patient's , Ying TOPICS ADDRESSED: VARGAS met with pt's this date following OV. She presented a letter received from [employer] patient assistance that pt has been denied for enrollment in 2024. Ying reports nothing has changed in regards to their income or insurance coverage. VARGAS encouraged Ying to appeal the denial. Per letter, appeal can be completed by turning in financial documents. Ying in agreement. VARGAS informed her what documents would be accepted. Ying reports she will either fax to VARGAS or bring them to the office this Friday for VARGAS to fax to [employer]. When forms are received, SW will forward to [employer] to begin the appeal. Ying reports pt received his last shipment of Xtandi recently. SW also discussed with Ying the new 2024 Medicare prescription coverage cap of $2,000. Ying reports they may be able to manage this with a payment plan if that is the last option. Ying reports pt's OOP for [employer] prior to pt assistance this year would have been $17,000. SW to assist with the appeal and also follow up to assist with any other financial options if appeal is denied. Ying presented as somewhat overwhelmed and reports she is concerned about pt's PSA levels rising and is also taking care of her mother's medical concerns. 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 Ying became tearful while discussing this with SW. SW utilized empathy and normalized pt's feelings. Ying appreciative of a place to share her frustrations and feelings. She reports she does not require any follow up and will be okay. SW to keep in contact with Ying for pt's Xtandi renewal and also to check in on her from time to time. No other needs identified. PLAN: Assist with financial support applications and Continue follow up as needed F/U APPOINTMENT: PRN Assigned SW listed in Care Team tab: Yes OMID Hassan Allergies As of Date: 02/18/2024 (No Known Allergies) Date Reviewed: 02/18/2024 Reviewed by: Emelina Westbrook Ma, MA - Fully Assessed Reason for Visit: 2024 [employer] Patient Assistance [Other] Prescriptions as of 02/18/2024 - pantoprazole DR (PROTONIX) 40 mg tablet Take 40 mg by mouth once daily. - tamsulosin (FLOMAX) 0.4 mg Take 1 capsule by mouth once daily - hfahysvitzf-elhuiioqq-bzyq nter (TRELEGY ELLIPTA) 200-62.5-25 mcg inhalation powder Inhale 1 Puff as instructed once daily. - B-complex with vitamin C (SUPER B COMPLEX-VITAMIN C ORAL) Take 1 tablet by mouth once daily. - enzalutamide (XTANDI) 40 mg Take 4 capsules (160mg) by mouth once daily. - triamcinolone acetonide (NASACORT AQ) 55 mcg nasal inhaler Use 2 Sprays in each nostril once daily. - aspirin, enteric coated (ASPIRIN, ENTERIC COATED) 81 mg EC tablet Take 1 tablet by mouth once daily. - hydroCHLOROthiazide (HYDRODIURIL, ESIDRIX) 12.5 mg tablet Take 12.5 mg by mouth once daily. - iv contrast (will be provided with radiology test) CT Chest W -Inject, intravenously, once for 1 dose.No IV access, insert saline lock prior to the beginning of sedation, infusion, injection of imaging exam. Discontinue saline lock post exam. If Pt. has a central line or IVAD, may access for administration according to line specific nursing protocol. Once exam is complete flush line and de-access according to line specific nursing protocol in the CT contrast administration guidelines link. - docusate sodium (COLACE) 100 mg capsule Take 1 capsule by mouth twice daily as needed. - rosuvastatin (CRESTOR) 5 mg tablet Take 5 mg by mouth once daily. - ramipril (ALTACE) 10 mg capsule Take 10 mg by mouth once daily. - metoprolol tartrate, short acting, (LOPRESSOR) 25 mg tablet TAKE 1/2 (ONE-HALF) TABLET BY MOUTH TWICE DAILY - calcium carbonate-vitamin D3 (OSCAL+D) 500 mg(1,250mg) -400 unit chewable tablet Take 1 tablet by mouth once daily. Facility-Administered Medications as of 02/18/2024 - NaCl 0.9% iv infusion - diphenhydrAMINE 50 mg injection (BENADRYL) - hydrocortisone sodium succinate (PF) 100 mg injection (Solu-CORTEF) - EPINEPHrine HCl (PF) 1 mg/mL (1 mL) 0.3 mg injection - sodium chloride 0.9 % (flush) 10-20 mL (BD POSIFLUSH) - heparin 100 unit/mL 500 Units injection - sodium chloride 0.9 % (flush) 10-20 mL (BD POSIFLUSH) - PHARMACY COMMUNICATION PATIENT ARRIVED - sodium chloride 0.9 % (flush) 10-20 mL (BD POSIFLUSH) Problem List As Of Date 02/18/2024 N (more content not included)... Normal [facility] Comprehensive metabolic 2000 panelon 02-13-2024 Albumin [Mass/Vol] 4.2 g/dL Normal 3.9-4.9 [facility] Comment on above: Order Comment: Speci men Type: BLOOD SPECIMENOrdering Facility: [facility] Address: [address] [place] [address] Performed By: #### 2 4323-8 ####[facility] TIMMYWBOLALIA [id number] [place] [address] [place] ALP [Catalytic activity/Vol] 99 U/L Normal 38-113 [facility] Comment on above: Order Comment: Speci men Type: BLOOD SPECIMENOrdering Facility: [facility] Address: [address] [place] [address] Performed By: #### 2 4323-8 ####[facility]ENTERNCLIA [id number] [place] [address] [place] ALT [Catalytic activity/Vol] 13 U/L Normal 10-54 [facility] Comment on above: Order Comment: Speci men Type: BLOOD SPECIMENOrdering Facility: [facility] Address: [address] [place] [address] Performed By: #### 2 4323-8 ####[facility]ENTERNCA [id number] [place] [address] [place] Anion gap [Moles/Vol] 13 mmol/L Normal 8-15 [facility] Comment on above: Order Comment: Speci men Type: BLOOD SPECIMENOrdering Facility: [facility] Address: [address] [place] [address] Performed By: #### 2 4323-8 ####[facility] MILLWNCLIA [id number] [place] [address] [place] AST [Catalytic activity/Vol] 20 U/L Normal 14-40 [facility] Comment on above: Order Comment: Speci men Type: BLOOD SPECIMENOrdering Facility: [facility] Address: [address] [place] [address] Performed By: #### 2 4323-8 ####[facility] HOSPITALTOWNCLIA [id number] [place] [address] [place] Bilirubin [Mass/Vol] 0.3 mg/dL Normal 0.2-1.3 [facility] Comment on above: Order Comment: Speci men Type: BLOOD SPECIMENOrdering Facility: [facility] Address: [address] [place] [address] Performed By: #### 2 4323-8 ####[facility] MILLTOWNCLIA [id number] [place] [address] [place] Calcium [Mass/Vol] 10.5 mg/dL High 8.5-10.2 [facility] Comment on above: Order Comment: Speci men Type: BLOOD SPECIMENOrdering Facility: [facility] Address: [address] [place] [address] Performed By: #### 2 4323-8 ####[facility] SYSTEMLIA [id number] [place] [address] [place] Chloride [Moles/Vol] 101 mmol/L Normal 98-107 [facility] Comment on above: Order Comment: Speci men Type: BLOOD SPECIMENOrdering Facility: [facility] Address: [address] [place] [address] Performed By: #### 2 4323-8 ####[facility] MILLWNCLIA [id number] [place] [address] [place] CO2 [Moles/Vol] 24 mmol/L Normal 22-30 [facility] Comment on above: Order Comment: Speci men Type: BLOOD SPECIMENOrdering Facility: [facility] Address: [address] [place] [address] Performed By: #### 2 4323-8 ####[facility]ENTERNCLIA [id number] [place] [address] [place] Creatinine [Mass/Vol] 1.30 mg/dL High 0.73-1.22 [facility] Comment on above: Order Comment: Nichol saunders Type: BLOOD SPECIMENOrdering Facility: [facility] Address: [address] [place] [address] Performed By: #### 2 4323-8 ####[facility] [id number] [place] [address] [place] Creatinine and Glomerular filtration rate.predicted panel (S/P/Bld) 58 mL/min/1.73m??? Low >=60 [facility] Comment on above: Order Comment: Nichol saunders Type: BLOOD SPECIMENOrdering Facility: [facility] Address: [address] [place] [address] Result Comment: Grisel mated Glomerular Filtration Rate (eGFR) is calculated using the 2020 CKD-EPI creatinine equation. This equation utilizes serum creatinine, sex, and age as parameters. The creatinine assay has traceable calibration to isotope dilution-mass spectrometry. Refer to KDIGO guidelines for clinical interpretation. In patients with unstable renal function, e.g. those with acute kidney injury, the eGFR may not accurately reflect actual GFR. Performed By: #### 2 4323-8 ####[facility] [id number] [place] [address] [place] Glucose [Mass/Vol] 121 mg/dL High 74-99 [facility] Comment on above: Order Comment: Nichol saunders Type: BLOOD SPECIMENOrdering Facility: [facility] Address: [address] [place] [address] Result Comment: The [place] Diabetes Association (ADA) provides guidance for cutoff values for fasting glucose and random glucose. The ADA defines fasting as no caloric intake for at least 8 hours. Fasting plasma glucose results between 100 to 125 mg/dL indicate increased risk for diabetes (prediabetes). Fasting plasma glucose results greater than or equal to 126 mg/dL meet the criteria for diagnosis of diabetes. In the absence of unequivocal hyperglycemia, results should be confirmed by repeat testing. In a patient with classic symptoms of hyperglycemia or hyperglycemic crisis, random plasma glucose results greater than or equal to 200 mg/dL meet the criteria for diagnosis of diabetes. Reference: Standards of Medical Care in Diabetes 2016, [place] [employer] Association. Diabetes Care. 2016.39(Suppl 1). Performed By: #### 2 4323-8 ####[facility] TIMMYADDISBOLAJENAAmara [id number] [place] [address] [place] Potassium [Moles/Vol] 4.6 mmol/L Normal 3.7-5.1 [facility] Comment on above: Order Comment: Speci men Type: BLOOD SPECIMENOrdering Facility: [facility] Address: [address] [place] [address] Performed By: #### 2 4323-8 ####[facility] CENTERBOLAMCKAY[facility] [id number] [place] [address] [place] Protein [Mass/Vol] 7.4 g/dL Normal 6.3-8.0 [facility] Comment on above: Order Comment: Speci men Type: BLOOD SPECIMENOrdering Facility: [facility] Address: [address] [place] [address] Performed By: #### 2 4323-8 ####[facility] [id number] [place] [address] [place] Sodium [Moles/Vol] 138 mmol/L Normal 136-144 [facility] Comment on above: Order Comment: Speci men Type: BLOOD SPECIMENOrdering Facility: [facility] Address: [address] [place] [address] Performed By: #### 2 4323-8 ####[facility] [id number] [place] [address] [place] Urea nitrogen [Mass/Vol] 21 mg/dL Normal 9-24 [facility] Comment on above: Order Comment: Speci men Type: BLOOD SPECIMENOrdering Facility: [facility] Address: [address] [place] [address] Performed By: #### 2 4323-8 ####[facility] HOSPITALWNCMCKAY[facility] [id number] [place] [address] [place] PSA SerPl-mCncon 02-13-2024 Prostate specific Ag [Mass/Vol] 9.46 ng/mL High <2.60 [facility] Comment on above: Order Comment: Speci men Type: BLOOD SPECIMENOrdering Facility: [facility] Address: [address] [place] [address] Result Comment: Tota l PSA test methodology used is the Electrochemiluminescence Immunoassay by [employer]. Total PSA values by differing methodologies cannot be interchanged. For an individual patient, the significance of a PSA level should be interpreted in a broad clinical context, including age, race, family history, digital rectal exam, prostate size, results of prior testing (prostate biopsy, free PSA, PCA3), and use of 5-alpha reductase inhibitors. Considering the high incidence of asymptomatic cancer in the general population that may not pose an ultimate risk to a patient, the decision to recommend urological evaluation or prostate biopsy should be individualized after consideration of all these factors. REFERENCE: Joaquin Rey M.D., M.P.H., Pepe Shen M.D., Ph.D., Samuel Woods M.D., Raysa Johnson, M.P.H., Faith Pepper ScLm. Effect of Verification Bias on Screening for Prostate Cancer by Measurement of Prostatic Specific Antigen. N Engl J Med 2003,349:335-42. Performed By: #### 2 857-1 ####[facility] LABCLIA [id number] [place] [address] [place] [address] ANGIOGRAPHY ABD AORTA + I LIOFEMORALon 01-23-2024 CT ANGIOGRAPHY ABD AORTA + ILIOFEMORAL ORIGINAL EXAMINATION: CTA OF THE ABDOMEN AND PELVIS WITH CONTRAST 01/20/2024 9:54 am: TECHNIQUE: CTA of the abdomen and pelvis was performed with the administration of intravenous contrast. Multiplanar reformatted images are provided for review. MIP images are provided for review. Automated exposure control, iterative reconstruction, and/or weight based adjustment of the mA/kV was utilized to reduce the radiation dose to as low as reasonably achievable. COMPARISON: None. HISTORY: ORDERING SYSTEM PROVIDED HISTORY: Reason for Exam: Suboptimal ultrasound with noted dilated aorta with recommendation for CT scan with contrast by radiology FINDINGS: CTA ABDOMEN and pelvis: Visualized thoracic aorta demonstrates no acute CT angiographic abnormality. Abdominal aorta demonstrates ulcerated noncalcified atherosclerotic plaque in the suprarenal and pararenal portions producing approximately 60% maximal aortic luminal stenosis at the level of the renal arteries with narrowest aortic luminal diameter 9.8 mm in this region.. Unremarkable CT angiographic appearance of aortoiliac endograft. No evidence endoleak or significant stenosis within the graft lumen. Common and external iliac as well as common femoral arteries demonstrate diffuse calcified atherosclerotic plaque without hemodynamically significant stenosis. Critical stenosis and or short segment occlusion origins of internal iliac arteries bilaterally. Right superficial femoral artery occluded near its origin. Otherwise, visualized superficial and deep femoral arteries demonstrate no CT angiographic abnormality. CT: Visualized thorax: Findings of advanced COPD/emphysema seen throughout visualized lung wang. No acute pulmonary consolidations, airspace infiltrates, suspicious masses, pneumothorax, pleural or pericardial effusion. Heavy atherosclerotic calcification noted in the coronary arteries of uncertain hemodynamic significance. Bilateral hilar, precarinal and subcarinal mediastinal lymphadenopathy noted with maximal short axis dimension 1.9 cm in the right hilar region. Neoplastic/malignant etiology cannot be excluded. Correlation with prior studies and or PET-CT scan recommended for further evaluation. Abdominal organs: Nonobstructing medullary stone inferior pole left kidney 11 mm in greatest dimension. No hydronephrosis or urinary collecting system stone. Otherwise, no acute CT angiographic abnormality visualized abdominal organs. GI tract: No acute CT angiographic abnormality. Pelvis: No acute CT abnormality. Mesentery and retroperitoneum: Vascular findings described above. Otherwise, no acute CT angiographic abnormality. Osseous structures and soft tissues: Diffuse advanced osteoblastic change throughout visualized axial and appendicular skeleton most consistent with diffuse osseous metastatic disease. Multilevel neural foraminal stenosis, exiting nerve compression due to intervertebral disc space narrowing, facet and ligamentous hypertrophy. No acute pathologic fracture. Otherwise, no acute CT abnormality. IMPRESSION: 1. Ulcerated noncalcified atherosclerotic plaque in the suprarenal and pararenal portions of the abdominal aorta producing approximately 60% maximal aortic luminal stenosis at the level of the renal arteries with narrowest aortic luminal diameter 9.8 mm in this region. 2. Unremarkable CT angiographic appearance of aortoiliac endograft. No evidence endoleak or significant stenosis within the graft lumen. 3. Critical stenosis and or short segment occlusion origins of internal iliac arteries bilaterally. 4. Right superficial femoral artery occluded near its origin. 5. Bilateral hilar, precarinal and subcarinal mediastinal lymphadenopathy with maximal short axis dimension 1.9 cm in the right hilar region. Neoplastic/malignant etiology cannot be excluded. Correlation with prior studies and or PET-CT scan recommended for further evaluation. 6. Diffuse advanced osteoblastic change throughout visualized axial and appendicular skeleton most consistent with diffuse osseous metastatic disease. Multilevel spinal canal and neural foraminal stenosis with multilevel nerve compression due to intervertebral disc space narrowing, facet and ligamentous hypertrophy. No acute pathologic fracture. 7. Findings of advanced COPD/emphysema seen throughout visualized lung wang. 8. Heavy atherosclerotic calcification noted in the coronary arteries of uncertain hemodynamic significance. 9. Nonobstructing medullary stone inferior pole left kidney 11 mm in greatest dimension. No hydronephrosis or urinary collecting system stone. Interpreted by: Jeni Mtz DO Preliminary Report By: Jeni Mtz DO Electronically signed By Jeni Mtz DO Dictated Date: 01/23/2024 8:48:12 AM Prelim Date: 01/23/2024 8:59:59 AM Sign Date: 01/23/2024 8:59:59 AM Ordering Provider (more content not included)... Normal [facility] US ABDOMEN AND AORTAon 01-13 US ABDOMEN AND AORTA ORIGINAL EXAMINATION: COMPLETE ABDOMINAL HISUHDVOEM83/5/2024 8:57 am And ultrasound of the abdominal aorta COMPARISON: None TECHNIQUE: This report is based on interpretation of permanently recorded ultrasound images. HISTORY: ORDERING SYSTEM PROVIDED HISTORY: Reason for Exam: see comments, history of abdominal aortic aneurysm repair, history of prostate cancer, pain in the epigastric region on palpation FINDINGS: There is suboptimal visualization of the proximal abdominal aorta. Measurements in this region may be unreliable. A stent graft seems to be present in the distal aorta extending into the iliac arteries. AP and Transverse diameter of the proximal segment: 3.3 x 4.1 cm AP and Transverse diameter of the mid segment: 2.7 x 2.2 cm AP and Transverse diameter of the distal segment: 2.1 x 3.4 cm. The common iliac arteries are 1.521.6 cm in diameter suggesting ectasia. The liver shows coarsening and diffusely increased echogenicity. No focal lesion is seen. The gallbladder is normal. Negative sonographic Szymanski's sign. Minimal gallbladder sludge is not considered significant. No gallstones. No intrahepatic bile duct dilatation, common duct is 3 mm at the ellen hepatis. The visualized pancreas shows no mass lesions but significant portions are obscured by bowel gas. The spleen is not enlarged vertical dimension 9.1 cm without any focal lesions. No ascites is seen. Limited survey images of both kidneys show normal size cortical thickness and echogenicity with no pelvocaliectasis. The left kidney has a simple cortical cyst of 2.8 cm. No other renal lesion is clearly identified. The visualized IVC is normal in caliber. IMPRESSION: Liver steatosis or other diffuse hepatocellular disease. No acute findings in the abdomen. Suboptimal evaluation of the aorta. There also no comparison images to determine stability or interval changes. Maximum aortic diameter of 4.1 cm in the proximal segment measured on this study may be artifactual or a true aneurysm. Suggest follow-up evaluation of the aorta with contrast CT. Interpreted by: Gerson Cha MD Preliminary Report By: Gerson Cha MD Electronically signed By Gerson Cha MD Dictated Date: 01/14/2024 12:56:18 PM Prelim Date: 01/14/2024 1:01:22 PM Sign Date: 01/14/2024 1:01:22 PM Ordering Provider: SILVERIO BOLIVAR [facility] XR UPPER GIon 01-08-2024 XR UPPER GI Normal [facility] 12-02-2023 CNPN Telephone ([facility]) -- SALO NAGY ([id number]) 1950 M Date Time Provider Department [facility]02[facility] During your visit today, we recorded the following information about you: Bryan Derrell 12/02/2023 1:12 PM Signed Spoke with Ying and let her know [employer] made a payment of $111.40 for patient's 09/03/23 DOS. She asked about DOS 11/26/23 - still pending with insurance as of today. Advised Ying to give the claim a little more time to process with insurance and reassured her we can submit the claim to [employer] if there is a balance left over. Allergies As of Date: 12/02/2023 (No Known Allergies) Date Reviewed: 11/26/2023 Reviewed by: Christiano Mauricio MA - Fully Assessed Reason for Visit: Financial Navigation [Other] Prescriptions as of 12/02/2023 - tamsulosin (FLOMAX) 0.4 mg Take 1 capsule by mouth once daily - ftltqftteow-lxfcdxrpw-cxgm nter (TRELEGY ELLIPTA) 200-62.5-25 mcg inhalation powder Inhale 1 Puff as instructed once daily. - B-complex with vitamin C (SUPER B COMPLEX-VITAMIN C ORAL) Take 1 tablet by mouth once daily. - enzalutamide (XTANDI) 40 mg Take 4 capsules (160mg) by mouth once daily. - triamcinolone acetonide (NASACORT AQ) 55 mcg nasal inhaler Use 2 Sprays in each nostril once daily. - aspirin, enteric coated (ASPIRIN, ENTERIC COATED) 81 mg EC tablet Take 1 tablet by mouth once daily. - hydroCHLOROthiazide (HYDRODIURIL, ESIDRIX) 12.5 mg tablet Take 12.5 mg by mouth once daily. - iv contrast (will be provided with radiology test) CT Chest W -Inject, intravenously, once for 1 dose.No IV access, insert saline lock prior to the beginning of sedation, infusion, injection of imaging exam. Discontinue saline lock post exam. If Pt. has a central line or IVAD, may access for administration according to line specific nursing protocol. Once exam is complete flush line and de-access according to line specific nursing protocol in the CT contrast administration guidelines link. - docusate sodium (COLACE) 100 mg capsule Take 1 capsule by mouth twice daily as needed. - rosuvastatin (CRESTOR) 5 mg tablet Take 5 mg by mouth once daily. - ramipril (ALTACE) 10 mg capsule Take 10 mg by mouth once daily. - metoprolol tartrate, short acting, (LOPRESSOR) 25 mg tablet TAKE 1/2 (ONE-HALF) TABLET BY MOUTH TWICE DAILY - calcium carbonate-vitamin D3 (OSCAL+D) 500 mg(1,250mg) -400 unit chewable tablet Take 1 tablet by mouth once daily. Problem List As Of Date 12/02/2023 Noted Resolved Malignant neoplasm of prostate (HCC) [C61] 07/10/2018 Prostate cancer metastatic to bone (HCC) [C61, *07/24/2018 Essential hypertension [I10] 09/07/2018 CVA (cerebral vascular accident) (HCC) [I63.9] 09/07/2018 Neoplasm of unspecified behavior of bone, soft *06/18/2018 Panlobular emphysema (HCC) [J43.1] 09/07/2018 Claudication of both lower extremities (HCC) [I*09/07/2018 AAA (abdominal aortic aneurysm) without rupture*09/07/2018 Iliac aneurysm (HCC) [I72.3] 09/07/2018 Bilateral carotid artery stenosis [I65.23] 09/07/2018 Bone metastases (HCC) [C79.51] 01/14/2019 AAA (abdominal aortic aneurysm) (HCC) [I71.40] 10/29/2019 Acute urinary retention [R33.8] 10/30/2019 10/30/2019 Hypoxemia [R09.02] 08/28/2020 Acute pulmonary embolism without acute cor pulm*08/29/2020 Elevated LFTs [R79.89] 04/15/2022 Encounter Status:Closed by DERRELL ADAMS on 12/02/23 [facility] .Auto Diffon 08-28-2023 Basophil, Absolute 0.1 10 3/mcL Normal 0.0-0.2 [facility] ([place]) Comment on above: Performed By: #### P SA, CMP, CBC, LIPID, VIDH, GFR, ADIFF, ANEU, A1C #### [address] [address] #### PTH #### [facility] [address] [place] [address] Basophils/100 WBC (Bld) 0.7 % Normal 0.0-2.5 [facility] ([place]) Comment on above: Performed By: #### P SA, CMP, CBC, LIPID, VIDH, GFR, ADIFF, ANEU, A1C #### [address] [address] #### PTH #### [address] [address] Eosinophil, Absolute 0.4 10 3/mcL Normal 0.0-0.4 [facility] ([place]) Comment on above: Performed By: #### P SA, CMP, CBC, LIPID, VIDH, GFR, ADIFF, ANEU, A1C #### [place] [address] #### PTH #### [address] [address] Eosinophils/100 WBC (Bld) 4.5 % Normal 0.0-7.0 [facility] ([place]) Comment on above: Performed By: #### P SA, CMP, CBC, LIPID, VIDH, GFR, ADIFF, ANEU, A1C #### [place] [address] #### PTH #### [address] [address] Lymphocyte, Absolute 2.4 10 3/mcL Normal 0.8-3.9 [facility] ([place]) Comment on above: Performed By: #### P SA, CMP, CBC, LIPID, VIDH, GFR, ADIFF, ANEU, A1C #### [place] [address] #### PTH #### [address] [address] Lymphocytes/100 WBC (Bld) 29.9 % Normal 10.0-50.0 [facility] ([place]) Comment on above: Performed By: #### P SA, CMP, CBC, LIPID, VIDH, GFR, ADIFF, ANEU, A1C #### [place] [address] #### PTH #### [address] [address] Monocyte, Absolute 0.7 10 3/mcL Normal 0.2-1.0 [facility] ([place]) Comment on above: Performed By: #### P SA, CMP, CBC, LIPID, VIDH, GFR, ADIFF, ANEU, A1C #### [address] [address] #### PTH #### [address] [address] Monocytes/100 WBC (Bld) 8.4 % Normal 1.7-13.0 [facility] ([place]) Comment on above: Performed By: #### P SA, CMP, CBC, LIPID, VIDH, GFR, ADIFF, ANEU, A1C #### [address] [address] #### PTH #### [address] [address] Neutrophils/100 WBC (Bld) 56.5 % Normal 37.0-80.0 [facility] ([place]) Comment on above: Performed By: #### P SA, CMP, CBC, LIPID, VIDH, GFR, ADIFF, ANEU, A1C #### [address] [address] #### PTH #### [address] [address] .GFRon 08-28-2023 GFR Non- 48 ml/min/1.73sqm Normal [facility] ([place]) Comment on above: Result Comment: GFR Population mean for , Non- Americans Ages 20-29 = 116 mL/min/1.73 sq.m. Ages 30-39 = 107 mL/min/1.73 sq.m. Ages 40-49 = 99 mL/min/1.73 sq.m. Ages 50-59 = 93 mL/min/1.73 sq.m. Ages 60-69 = 85 mL/min/1.73 sq.m. Ages 70+ = 75 mL/min/1.73 sq.m. Chronic Kidney Disease: Less than 60 mL/min/1.73 square meters End Stage Renal Disease: Less than 15 mL/min/1.73 square meters Performed By: #### P SA, CMP, CBC, LIPID, VIDH, GFR, ADIFF, ANEU, A1C #### [address] [address] #### PTH #### [address] [address] GFR 58 ml/min/1.73sqm Normal [facility] ([place]) Comment on above: Result Comment: GFR Population mean for , Non- Americans Ages 20-29 = 116 mL/min/1.73 sq.m. Ages 30-39 = 107 mL/min/1.73 sq.m. Ages 40-49 = 99 mL/min/1.73 sq.m. Ages 50-59 = 93 mL/min/1.73 sq.m. Ages 60-69 = 85 mL/min/1.73 sq.m. Ages 70+ = 75 mL/min/1.73 sq.m. Chronic Kidney Disease: Less than 60 mL/min/1.73 square meters End Stage Renal Disease: Less than 15 mL/min/1.73 square meters Performed By: #### P SA, CMP, CBC, LIPID, VIDH, GFR, ADIFF, ANEU, A1C #### [address] [address] #### PTH #### [place] [address] .NEUABSon 08-28-2023 Neutrophil, Absolute 4.5 10 3/mcL Normal 2.9-6.2 [facility] ([place]) Comment on above: Performed By: #### P SA, CMP, CBC, LIPID, VIDH, GFR, ADIFF, ANEU, A1C #### [address] [address] #### PTH #### [address] [address] A1Con 08-28-2023 HbA1c (Bld) [Mass fraction] 6.2 % Normal 4.3-6.4 [facility] ([place]) Comment on above: Performed By: #### P SA, CMP, CBC, LIPID, VIDH, GFR, ADIFF, ANEU, A1C #### [address] [address] #### PTH #### [place] [address] CBCon 08-28-2023 Erythrocyte distribution width (RBC) [Ratio] 15.4 % High 11.5-14.5 [facility] ([place]) Comment on above: Performed By: #### P SA, CMP, CBC, LIPID, VIDH, GFR, ADIFF, ANEU, A1C #### [address] [address] #### PTH #### [place] [address] Hematocrit (Bld) [Volume fraction] 41.8 % Low 42.0-52.0 [facility] ([place]) Comment on above: Performed By: #### P SA, CMP, CBC, LIPID, VIDH, GFR, ADIFF, ANEU, A1C #### [place] [address] #### PTH #### [place] [address] Hgb 13.9 G/dL Low 14.0-18.0 [facility] ([place]) Comment on above: Performed By: #### P SA, CMP, CBC, LIPID, VIDH, GFR, ADIFF, ANEU, A1C #### [place] [address] #### PTH #### [place] [address] MCH (RBC) [Entitic mass] 30.8 pg Normal 27.0-31.2 [facility] ([place]) Comment on above: Performed By: #### P SA, CMP, CBC, LIPID, VIDH, GFR, ADIFF, ANEU, A1C #### [place] [address] #### PTH #### [place] [address] MCHC 33.3 G/dL Normal 31.8-35.4 [facility] ([place]) Comment on above: Performed By: #### P SA, CMP, CBC, LIPID, VIDH, GFR, ADIFF, ANEU, A1C #### [place] [address] #### PTH #### [place] [address] MCV (RBC) [Entitic vol] 92.6 fL Normal 80.0-94.0 [facility] ([place]) Comment on above: Performed By: #### P SA, CMP, CBC, LIPID, VIDH, GFR, ADIFF, ANEU, A1C #### [place] [address] #### PTH #### [place] [address] Platelet 274 10 3/mcL Normal 130-400 [facility] ([place]) Comment on above: Performed By: #### P SA, CMP, CBC, LIPID, VIDH, GFR, ADIFF, ANEU, A1C #### [place] [address] #### PTH #### [place] [address] Platelet mean volume (Bld) [Entitic vol] 9.5 fL Normal 7.4-10.4 [facility] ([place]) Comment on above: Performed By: #### P SA, CMP, CBC, LIPID, VIDH, GFR, ADIFF, ANEU, A1C #### [place] [address] #### PTH #### [place] [address] RBC 4.51 10 6/mcL Normal 4.04-6.13 [facility] ([place]) Comment on above: Performed By: #### P SA, CMP, CBC, LIPID, VIDH, GFR, ADIFF, ANEU, A1C #### [place] [address] #### PTH #### [place] [address] WBC 8.0 10 3/mcL Normal 4.6-10.8 [facility] ([place]) Comment on above: Performed By: #### P SA, CMP, CBC, LIPID, VIDH, GFR, ADIFF, ANEU, A1C #### [address] [address] #### PTH #### [address] 08-28-2023 Albumin Level 3.7 G/dL Normal 3.4-4.8 [facility] ([place]) Comment on above: Performed By: #### P SA, CMP, CBC, LIPID, VIDH, GFR, ADIFF, ANEU, A1C #### [place] [address] #### PTH #### [place] [address] Albumin/Globulin [Mass ratio] 1.0 {ratio} Low 1.1-2.5 [facility] ([place]) Comment on above: Performed By: #### P SA, CMP, CBC, LIPID, VIDH, GFR, ADIFF, ANEU, A1C #### [place] [address] #### PTH #### [place] [address] ALP [Catalytic activity/Vol] 90 U/L Normal 40-135 [facility] ([place]) Comment on above: Performed By: #### P SA, CMP, CBC, LIPID, VIDH, GFR, ADIFF, ANEU, A1C #### [place] [address] #### PTH #### [place] [address] ALT [Catalytic activity/Vol] 21 U/L Normal 16-63 [facility] ([place]) Comment on above: Performed By: #### P SA, CMP, CBC, LIPID, VIDH, GFR, ADIFF, ANEU, A1C #### [place] [address] #### PTH #### [place] [address] AST [Catalytic activity/Vol] 13 U/L Normal 10-40 [facility] ([place]) Comment on above: Performed By: #### P SA, CMP, CBC, LIPID, VIDH, GFR, ADIFF, ANEU, A1C #### [address] [address] #### PTH #### [address] [address] Bili Total 0.4 mg/dL Normal 0.2-1.0 [facility] ([place]) Comment on above: Result Comment: Use of this assay is not recommended for patients undergoing treatment with eltrombopag due to the potential for falsely elevated results. Performed By: #### P SA, CMP, CBC, LIPID, VIDH, GFR, ADIFF, ANEU, A1C #### [place] [address] #### PTH #### [address] [address] BUN/Creatinine Ratio 17 ratio Normal 7-27 [facility] ([place]) Comment on above: Performed By: #### P SA, CMP, CBC, LIPID, VIDH, GFR, ADIFF, ANEU, A1C #### [place] [address] #### PTH #### [address] [address] Calcium [Mass/Vol] 9.3 mg/dL Normal 8.4-10.2 [facility] ([place]) Comment on above: Performed By: #### P SA, CMP, CBC, LIPID, VIDH, GFR, ADIFF, ANEU, A1C #### [place] [address] #### PTH #### [address] [address] Chloride [Moles/Vol] 100 mmol/L Normal 98-107 [facility] ([place]) Comment on above: Performed By: #### P SA, CMP, CBC, LIPID, VIDH, GFR, ADIFF, ANEU, A1C #### [place] [address] #### PTH #### [address] [address] CO2 [Moles/Vol] 24 mmol/L Normal 23-31 [facility] ([place]) Comment on above: Performed By: #### P SA, CMP, CBC, LIPID, VIDH, GFR, ADIFF, ANEU, A1C #### [address] [address] #### PTH #### [address] [address] Creatinine [Mass/Vol] 1.44 mg/dL High 0.70-1.30 [facility] ([place]) Comment on above: Performed By: #### P SA, CMP, CBC, LIPID, VIDH, GFR, ADIFF, ANEU, A1C #### [address] [address] #### PTH #### [address] [address] Electrolyte Balance 13.0 mEq/L Normal 4.0-15.0 [facility] ([place]) Comment on above: Performed By: #### P SA, CMP, CBC, LIPID, VIDH, GFR, ADIFF, ANEU, A1C #### [address] [address] #### PTH #### [address] [address] Globulin 3.8 G/dL Normal [facility] ([place]) Comment on above: Performed By: #### P SA, CMP, CBC, LIPID, VIDH, GFR, ADIFF, ANEU, A1C #### [place] [address] #### PTH #### [address] [address] Glucose [Mass/Vol] 110 mg/dL Normal 83-110 [facility] ([place]) Comment on above: Performed By: #### P SA, CMP, CBC, LIPID, VIDH, GFR, ADIFF, ANEU, A1C #### [address] [address] #### PTH #### [address] [address] Potassium [Moles/Vol] 4.6 mmol/L Normal 3.5-5.1 [facility] ([place]) Comment on above: Performed By: #### P SA, CMP, CBC, LIPID, VIDH, GFR, ADIFF, ANEU, A1C #### [address] [address] #### PTH #### [address] [address] Sodium [Moles/Vol] 137 mmol/L Normal 136-145 [facility] ([place]) Comment on above: Performed By: #### P SA, CMP, CBC, LIPID, VIDH, GFR, ADIFF, ANEU, A1C #### [address] [address] #### PTH #### [address] [address] Total Protein 7.5 G/dL Normal 6.4-8.2 [facility] ([place]) Comment on above: Performed By: #### P SA, CMP, CBC, LIPID, VIDH, GFR, ADIFF, ANEU, A1C #### [address] [address] #### PTH #### [address] [address] Urea nitrogen [Mass/Vol] 24 mg/dL High 7-18 [facility] ([place]) Comment on above: Performed By: #### P SA, CMP, CBC, LIPID, VIDH, GFR, ADIFF, ANEU, A1C #### [place] [address] #### PTH #### [address] [address] LABORATORYOrdered By: SYSTEM SYSTEM on 08-28-2023 25-hydroxyvitamin D3 [Mass/Vol] 49.7 ng/mL Invalid Interpretation Code AO ADM SS Comment on above: Interpretive Data: I nterpretive Values Based on Total 25(OH) Vitamin D: Deficient <20 ng/mL Insufficient 20 - <30 ng/mL Sufficient 30-100 ng/mL Albumin BCP dye [Mass/Vol] 3.7 G/dL Normal 3.4 - 4.8 G/dL AO ADM SS Albumin/Globulin [Mass ratio] 1.0 {ratio} Low 1.1 - 2.5 ratio AO ADM SS ALP [Catalytic activity/Vol] 90 U/L Normal 40 - 135 U/L AO ADM SS ALT With P-5'-P [Catalytic activity/Vol] 21 U/L Normal 16 - 63 U/L AO ADM SS AST With P-5'-P [Catalytic activity/Vol] 13 U/L Normal 10 - 40 U/L AO ADM SS Basophil, Absolute 0.1 103/mcL Normal 0.0 - 0.2 10^3/mcL AO Workflow SS Basophils/100 WBC (Bld) 0.7 % Normal 0.0 - 2.5 % AO Workflow SS Bilirubin [Mass/Vol] 0.4 mg/dL Normal 0.2 - 1 .0 mg/dL AO ADM SS Comment on above: Interpretive Data: U se of this assay is not recommended for patients undergoing treatment with eltrombopag due to the potential for falsely elevated results. Calcium [Mass/Vol] 9.3 mg/dL Normal 8.4 - 10. 2 mg/dL AO ADM SS Chloride [Moles/Vol] 100 mmol/L Normal 98 - 10 7 mmol/L AO ADM SS CO2 [Moles/Vol] 24 mmol/L Normal 23 - 31 mmol/L AO ADM SS Creatinine [Mass/Vol] 1.44 mg/dL High 0.70 - 1.30 mg/dL AO ADM SS Electrolyte Balance 13.0 mEq/L Normal 4.0 - 15 .0 mEq/L AO ADM SS Eosinophil, Absolute 0.4 103/mcL Normal 0.0 - 0 .4 10^3/mcL AO Workflow SS Eosinophils/100 WBC (Bld) 4.5 % Normal 0.0 - 7.0 % AO Workflow SS Erythrocyte distribution width (RBC) [Ratio] 15.4 % High 11.5 - 14.5 % AO Workflow SS GFR/1.73 sq M.predicted among blacks MDRD (S/P/Bld) [Vol rate/Area] 58 ml/min/1.73sqm Invalid Interpretation Code AO Chemistry S Comment on above: Interpretive Data: GFR Population mean for , Non- Americans Ages 20-29 = 116 mL/min/1.73 sq.m. Ages 30-39 = 107 mL/min/1.73 sq.m. Ages 40-49 = 99 mL/min/1.73 sq.m. Ages 50-59 = 93 mL/min/1.73 sq.m. Ages 60-69 = 85 mL/min/1.73 sq.m. Ages 70+ = 75 mL/min/1.73 sq.m. Chronic Kidney Disease: Less than 60 mL/min/1.73 square meters End Stage Renal Disease: Less than 15 mL/min/1.73 square meters GFR/1.73 sq M.predicted among non-blacks MDRD (S/P/Bld) [Vol rate/Area] 48 ml/min/1.73sqm Invalid Interpretation Code AO Chemistry S Comment on above: Interpretive Data: GFR Population mean for , Non- Americans Ages 20-29 = 116 mL/min/1.73 sq.m. Ages 30-39 = 107 mL/min/1.73 sq.m. Ages 40-49 = 99 mL/min/1.73 sq.m. Ages 50-59 = 93 mL/min/1.73 sq.m. Ages 60-69 = 85 mL/min/1.73 sq.m. Ages 70+ = 75 mL/min/1.73 sq.m. Chronic Kidney Disease: Less than 60 mL/min/1.73 square meters End Stage Renal Disease: Less than 15 mL/min/1.73 square meters Globulin 3.8 G/dL Invalid Interpretation Code AO ADM SS Glucose [Mass/Vol] 110 mg/dL Normal 83 - 110 mg/dL AO ADM SS HbA1c (Bld) [Mass fraction] 6.2 % Normal 4.3 - 6.4 % AO ADM SS Hematocrit (Bld) [Volume fraction] 41.8 % Low 42.0 - 52.0 % AO Workflow SS Hemoglobin (Bld) [Mass/Vol] 13.9 G/dL Low 14.0 - 18.0 G/dL AO Workflow SS Lymphocyte, Absolute 2.4 103/mcL Normal 0.8 - 3 .9 10^3/mcL AO Workflow SS Lymphocytes/100 WBC (Bld) 29.9 % Normal 10.0 - 50.0 % AO Workflow SS MCH (RBC) [Entitic mass] 30.8 pg Normal 27.0 - 31.2 pg AO Workflow SS MCHC 33.3 G/dL Normal 31.8 - 35.4 G/dL AO Workflow SS MCV (RBC) [Entitic vol] 92.6 fL Normal 80.0 - 94.0 fL AO Workflow SS Monocyte, Absolute 0.7 103/mcL Normal 0.2 - 1.0 10^3/mcL AO Workflow SS Monocytes/100 WBC (Bld) 8.4 % Normal 1.7 - 13.0 % AO Workflow SS Neutrophil, Absolute 4.5 103/mcL Normal 2.9 - 6 .2 10^3/mcL AO Workflow SS Neutrophils/100 WBC (Bld) 56.5 % Normal 37.0 - 80.0 % AO Workflow SS Parathyrin.intact [Mass/Vol] 39.3 pg/mL Normal 18.5 - 88.0 pg/mL AH ADM SS Platelet mean volume (Bld) [Entitic vol] 9.5 fL Normal 7.4 - 10.4 fL AO Workflow SS Platelets (Bld) [#/Vol] 274 103/mcL Normal 130 - 400 10^3/mcL AO Workflow SS Potassium [Moles/Vol] 4.6 mmol/L Normal 3.5 - 5.1 mmol/L AO ADM SS Prostate specific Ag [Mass/Vol] 3.92 ng/mL Normal 0.00 - 4.00 ng/mL AO ADM SS Protein [Mass/Vol] 7.5 G/dL Normal 6.4 - 8.2 G/dL AO ADM SS RBC (Bld) [#/Vol] 4.51 106/mcL Normal 4.04 - 6.1 3 10^6/mcL AO Workflow SS Sodium [Moles/Vol] 137 mmol/L Normal 136 - 145 mmol/L AO ADM SS Urea nitrogen [Mass/Vol] 24 mg/dL High 7 - 18 mg/dL AO ADM SS Urea nitrogen/Creatinine [Mass ratio] 17 ratio Normal 7 - 27 ratio AO ADM SS WBC (Bld) [#/Vol] 8.0 103/mcL Normal 4.6 - 10.8 10^3/mcL AO Workflow SS LABORATORYOrdered By: Neto Guardado on 08-28-2023 Cholesterol [Mass/Vol] 223 mg/dL High 0 - 200 mg/dL AO ADM SS Comment on above: Interpretive Data: C holesterol Reference Interval: Less than 200 Desirable 200-239 Borderline high risk 240 and above High risk Cholesterol in HDL [Mass/Vol] 71 mg/dL High 40 - 60 mg/dL AO ADM SS Cholesterol in LDL [Mass/Vol] 111 mg/dL Normal 0 - 130 mg/dL AO ADM SS Triglyceride [Mass/Vol] 206 mg/dL High 0 - 150 mg/dL AO ADM SS Comment on above: Interpretive Data: T riglyceride Reference Interval: Less than 150 Normal 150-199 Borderline high risk 200-499 High risk 500 or higher Very high risk LIPIDon 08-28-2023 Cholesterol [Mass/Vol] 223 mg/dL High 0-200 [facility] ([place]) Comment on above: Result Comment: Chol esterol Reference Interval: Less than 200 Desirable 200-239 Borderline high risk 240 and above High risk Performed By: #### P SA, CMP, CBC, LIPID, VIDH, GFR, ADIFF, ANEU, A1C #### [address] [address] #### PTH #### [address] [address] Cholesterol in HDL [Mass/Vol] 71 mg/dL High 40-60 [facility] ([place]) Comment on above: Performed By: #### P SA, CMP, CBC, LIPID, VIDH, GFR, ADIFF, ANEU, A1C #### [address] [address] #### PTH #### [address] [address] Cholesterol in LDL [Mass/Vol] 111 mg/dL Normal 0-130 [facility] ([place]) Comment on above: Performed By: #### P SA, CMP, CBC, LIPID, VIDH, GFR, ADIFF, ANEU, A1C #### [address] [address] #### PTH #### [address] [address] Triglyceride [Mass/Vol] 206 mg/dL High 0-150 [facility] ([place]) Comment on above: Result Comment: Trig lyceride Reference Interval: Less than 150 Normal 150-199 Borderline high risk 200-499 High risk 500 or higher Very high risk Performed By: #### P SA, CMP, CBC, LIPID, VIDH, GFR, ADIFF, ANEU, A1C #### [address] [place] [address] #### PTH #### [place] [id number] PSAon 08-28-2023 Prostate Specific Antigen 3.92 ng/mL Normal 0.00-4.00 [facility] ([place]) Comment on above: Performed By: #### P SA, CMP, CBC, LIPID, VIDH, GFR, ADIFF, ANEU, A1C #### [place] [id number] #### PTH #### [place] [address] PTHon 08-28-2023 PTH, Intact 39.3 pg/mL Normal 18.5-88.0 [facility] ([place]) Comment on above: Performed By: #### P SA, CMP, CBC, LIPID, VIDH, GFR, ADIFF, ANEU, A1C #### [place] [address] #### PTH #### [place] [address] VIDHon 08-28-2023 Vit. D 25-Hydroxy 49.7 ng/mL Normal [facility] ([place]) Comment on above: Result Comment: Inte rpretive Values Based on Total 25(OH) Vitamin D: Deficient <20 ng/mL Insufficient 20 - <30 ng/mL Sufficient 30-100 ng/mL Performed By: #### P SA, CMP, CBC, LIPID, VIDH, GFR, ADIFF, ANEU, A1C #### [place] [id number] #### PTH #### [place] [address] RENINon 02-15-2023 Renin Activity 2.977 ng/mL/hr Normal 0.167-5.380 [facility] ([place]) Comment on above: Result Comment: This test was developed and its performance characteristics determined by [employer]. It has not been cleared or approved by the Food and Drug Administration. Performed At: 29 [address] [id number] Robbin Celeste MD Ph:[phone] Performed By: #### P SA, CMP, CBC, LIPID, VIDH, GFR, ADIFF, ANEU, A1C #### [address] [address] #### PTH #### [address] [address] .Auto Diffon 02-06-2023 Basophil, Absolute 0.1 10 3/mcL Normal 0.0-0.2 [facility] ([place]) Comment on above: Performed By: #### P SA, CMP, CBC, LIPID, VIDH, GFR, ADIFF, ANEU, A1C #### [place] [address] #### PTH #### [address] [address] Basophils/100 WBC (Bld) 0.9 % Normal 0.0-2.5 [facility] ([place]) Comment on above: Performed By: #### P SA, CMP, CBC, LIPID, VIDH, GFR, ADIFF, ANEU, A1C #### [place] [address] #### PTH #### [address] [address] Eosinophil, Absolute 0.6 10 3/mcL High 0.0-0.4 [facility] ([place]) Comment on above: Performed By: #### P SA, CMP, CBC, LIPID, VIDH, GFR, ADIFF, ANEU, A1C #### [place] [address] #### PTH #### [address] [address] Eosinophils/100 WBC (Bld) 7.2 % High 0.0-7.0 [facility] ([place]) Comment on above: Performed By: #### P SA, CMP, CBC, LIPID, VIDH, GFR, ADIFF, ANEU, A1C #### [place] [address] #### PTH #### [address] [address] Lymphocyte, Absolute 1.9 10 3/mcL Normal 0.8-3.9 [facility] ([place]) Comment on above: Performed By: #### P SA, CMP, CBC, LIPID, VIDH, GFR, ADIFF, ANEU, A1C #### [address] [address] #### PTH #### [address] [address] Lymphocytes/100 WBC (Bld) 23.9 % Normal 10.0-50.0 [facility] ([place]) Comment on above: Performed By: #### P SA, CMP, CBC, LIPID, VIDH, GFR, ADIFF, ANEU, A1C #### [address] [address] #### PTH #### [address] [address] Monocyte, Absolute 0.6 10 3/mcL Normal 0.2-1.0 [facility] ([place]) Comment on above: Performed By: #### P SA, CMP, CBC, LIPID, VIDH, GFR, ADIFF, ANEU, A1C #### [address] [address] #### PTH #### [address] [address] Monocytes/100 WBC (Bld) 8.1 % Normal 1.7-13.0 [facility] ([place]) Comment on above: Performed By: #### P SA, CMP, CBC, LIPID, VIDH, GFR, ADIFF, ANEU, A1C #### [address] [address] #### PTH #### [address] [address] Neutrophils/100 WBC (Bld) 59.9 % Normal 37.0-80.0 [facility] ([place]) Comment on above: Performed By: #### P SA, CMP, CBC, LIPID, VIDH, GFR, ADIFF, ANEU, A1C #### [place] [address] #### PTH #### [address] [address] .GFRon 02-06-2023 GFR 58 ml/min/1.73sqm Normal [facility] ([place]) Comment on above: Result Comment: GFR Population mean for , Non- Americans Ages 20-29 = 116 mL/min/1.73 sq.m. Ages 30-39 = 107 mL/min/1.73 sq.m. Ages 40-49 = 99 mL/min/1.73 sq.m. Ages 50-59 = 93 mL/min/1.73 sq.m. Ages 60-69 = 85 mL/min/1.73 sq.m. Ages 70+ = 75 mL/min/1.73 sq.m. Chronic Kidney Disease: Less than 60 mL/min/1.73 square meters End Stage Renal Disease: Less than 15 mL/min/1.73 square meters Performed By: #### P SA, CMP, CBC, LIPID, VIDH, GFR, ADIFF, ANEU, A1C #### [address] [address] #### PTH #### [address] [address] GFR Non- 48 ml/min/1.73sqm Normal [facility] ([place]) Comment on above: Result Comment: GFR Population mean for , Non- Americans Ages 20-29 = 116 mL/min/1.73 sq.m. Ages 30-39 = 107 mL/min/1.73 sq.m. Ages 40-49 = 99 mL/min/1.73 sq.m. Ages 50-59 = 93 mL/min/1.73 sq.m. Ages 60-69 = 85 mL/min/1.73 sq.m. Ages 70+ = 75 mL/min/1.73 sq.m. Chronic Kidney Disease: Less than 60 mL/min/1.73 square meters End Stage Renal Disease: Less than 15 mL/min/1.73 square meters Performed By: #### P SA, CMP, CBC, LIPID, VIDH, GFR, ADIFF, ANEU, A1C #### [address] [address] #### PTH #### [address] [address] .NEUABSon 02-06-2023 Neutrophil, Absolute 4.7 10 3/mcL Normal 2.9-6.2 [facility] ([place]) Comment on above: Performed By: #### P SA, CMP, CBC, LIPID, VIDH, GFR, ADIFF, ANEU, A1C #### [address] [address] #### PTH #### [place] [address] A1Con 02-06-2023 HbA1c (Bld) [Mass fraction] 6.5 % High 4.3-6.4 [facility] ([place]) Comment on above: Performed By: #### P SA, CMP, CBC, LIPID, VIDH, GFR, ADIFF, ANEU, A1C #### [place] [address] #### PTH #### [place] [address] CBCon 02-06-2023 Erythrocyte distribution width (RBC) [Ratio] 14.2 % Normal 11.5-14.5 [facility] ([place]) Comment on above: Performed By: #### P SA, CMP, CBC, LIPID, VIDH, GFR, ADIFF, ANEU, A1C #### [address] [address] #### PTH #### [place] [address] Hematocrit (Bld) [Volume fraction] 39.2 % Low 42.0-52.0 [facility] ([place]) Comment on above: Performed By: #### P SA, CMP, CBC, LIPID, VIDH, GFR, ADIFF, ANEU, A1C #### [place] [address] #### PTH #### [place] [address] Hgb 13.2 G/dL Low 14.0-18.0 [facility] ([place]) Comment on above: Performed By: #### P SA, CMP, CBC, LIPID, VIDH, GFR, ADIFF, ANEU, A1C #### [place] [address] #### PTH #### [place] [address] MCH (RBC) [Entitic mass] 29.4 pg Normal 27.0-31.2 [facility] ([place]) Comment on above: Performed By: #### P SA, CMP, CBC, LIPID, VIDH, GFR, ADIFF, ANEU, A1C #### [place] [address] #### PTH #### [place] [address] MCHC 33.5 G/dL Normal 31.8-35.4 [facility] ([place]) Comment on above: Performed By: #### P SA, CMP, CBC, LIPID, VIDH, GFR, ADIFF, ANEU, A1C #### [place] [address] #### PTH #### [place] [address] MCV (RBC) [Entitic vol] 87.5 fL Normal 80.0-94.0 [facility] ([place]) Comment on above: Performed By: #### P SA, CMP, CBC, LIPID, VIDH, GFR, ADIFF, ANEU, A1C #### [place] [address] #### PTH #### [place] [address] Platelet 259 10 3/mcL Normal 130-400 [facility] ([place]) Comment on above: Performed By: #### P SA, CMP, CBC, LIPID, VIDH, GFR, ADIFF, ANEU, A1C #### [place] [address] #### PTH #### [place] [address] Platelet mean volume (Bld) [Entitic vol] 9.3 fL Normal 7.4-10.4 [facility] ([place]) Comment on above: Performed By: #### P SA, CMP, CBC, LIPID, VIDH, GFR, ADIFF, ANEU, A1C #### [place] [address] #### PTH #### [place] [address] RBC 4.48 10 6/mcL Normal 4.04-6.13 [facility] ([place]) Comment on above: Performed By: #### P SA, CMP, CBC, LIPID, VIDH, GFR, ADIFF, ANEU, A1C #### [place] [address] #### PTH #### [place] [address] WBC 7.9 10 3/mcL Normal 4.6-10.8 [facility] ([place]) Comment on above: Performed By: #### P SA, CMP, CBC, LIPID, VIDH, GFR, ADIFF, ANEU, A1C #### [place] [address] #### PTH #### [place] [address] CMPon 02-06-2023 Albumin Level 3.8 G/dL Normal 3.4-4.8 [facility] ([place]) Comment on above: Performed By: #### P SA, CMP, CBC, LIPID, VIDH, GFR, ADIFF, ANEU, A1C #### [place] [address] #### PTH #### [place] [address] Albumin/Globulin [Mass ratio] 1.1 {ratio} Normal 1.1-2.5 [facility] ([place]) Comment on above: Performed By: #### P SA, CMP, CBC, LIPID, VIDH, GFR, ADIFF, ANEU, A1C #### [place] [address] #### PTH #### [place] [address] ALP [Catalytic activity/Vol] 85 U/L Normal 40-135 [facility] ([place]) Comment on above: Performed By: #### P SA, CMP, CBC, LIPID, VIDH, GFR, ADIFF, ANEU, A1C #### [address] [address] #### PTH #### [address] [address] ALT [Catalytic activity/Vol] 31 U/L Normal 16-63 [facility] ([place]) Comment on above: Performed By: #### P SA, CMP, CBC, LIPID, VIDH, GFR, ADIFF, ANEU, A1C #### [address] [address] #### PTH #### [address] [address] AST [Catalytic activity/Vol] 20 U/L Normal 10-40 [facility] ([place]) Comment on above: Performed By: #### P SA, CMP, CBC, LIPID, VIDH, GFR, ADIFF, ANEU, A1C #### [address] [address] #### PTH #### [address] [address] Bili Total 0.3 mg/dL Normal 0.2-1.0 [facility] ([place]) Comment on above: Result Comment: Use of this assay is not recommended for patients undergoing treatment with eltrombopag due to the potential for falsely elevated results. Performed By: #### P SA, CMP, CBC, LIPID, VIDH, GFR, ADIFF, ANEU, A1C #### [address] [address] #### PTH #### [address] [address] BUN/Creatinine Ratio 17 ratio Normal 7-27 [facility] ([place]) Comment on above: Performed By: #### P SA, CMP, CBC, LIPID, VIDH, GFR, ADIFF, ANEU, A1C #### [address] [address] #### PTH #### [address] [address] Calcium [Mass/Vol] 9.3 mg/dL Normal 8.4-10.2 [facility] ([place]) Comment on above: Performed By: #### P SA, CMP, CBC, LIPID, VIDH, GFR, ADIFF, ANEU, A1C #### [address] [address] #### PTH #### [address] [address] Chloride [Moles/Vol] 103 mmol/L Normal 98-107 [facility] ([place]) Comment on above: Performed By: #### P SA, CMP, CBC, LIPID, VIDH, GFR, ADIFF, ANEU, A1C #### [place] [address] #### PTH #### [address] [address] CO2 [Moles/Vol] 25 mmol/L Normal 23-31 [facility] ([place]) Comment on above: Performed By: #### P SA, CMP, CBC, LIPID, VIDH, GFR, ADIFF, ANEU, A1C #### [place] [address] #### PTH #### [address] [address] Creatinine [Mass/Vol] 1.45 mg/dL High 0.70-1.30 [facility] ([place]) Comment on above: Performed By: #### P SA, CMP, CBC, LIPID, VIDH, GFR, ADIFF, ANEU, A1C #### [place] [address] #### PTH #### [address] [address] Electrolyte Balance 12.0 mEq/L Normal 4.0-15.0 [facility] ([place]) Comment on above: Performed By: #### P SA, CMP, CBC, LIPID, VIDH, GFR, ADIFF, ANEU, A1C #### [place] [address] #### PTH #### [address] [address] Globulin 3.5 G/dL Normal [facility] ([place]) Comment on above: Performed By: #### P SA, CMP, CBC, LIPID, VIDH, GFR, ADIFF, ANEU, A1C #### [address] [address] #### PTH #### [address] [address] Glucose [Mass/Vol] 121 mg/dL High 83-110 [facility] ([place]) Comment on above: Performed By: #### P SA, CMP, CBC, LIPID, VIDH, GFR, ADIFF, ANEU, A1C #### [address] [address] #### PTH #### [address] [address] Potassium [Moles/Vol] 5.0 mmol/L Normal 3.5-5.1 [facility] ([place]) Comment on above: Performed By: #### P SA, CMP, CBC, LIPID, VIDH, GFR, ADIFF, ANEU, A1C #### [address] [address] #### PTH #### [address] [address] Sodium [Moles/Vol] 140 mmol/L Normal 136-145 [facility] ([place]) Comment on above: Performed By: #### P SA, CMP, CBC, LIPID, VIDH, GFR, ADIFF, ANEU, A1C #### [address] [address] #### PTH #### [address] [address] Total Protein 7.3 G/dL Normal 6.4-8.2 [facility] ([place]) Comment on above: Performed By: #### P SA, CMP, CBC, LIPID, VIDH, GFR, ADIFF, ANEU, A1C #### [address] [address] #### PTH #### [place] [address] Urea nitrogen [Mass/Vol] 25 mg/dL High 7-18 [facility] ([place]) Comment on above: Performed By: #### P SA, CMP, CBC, LIPID, VIDH, GFR, ADIFF, ANEU, A1C #### [address] [address] #### PTH #### [place] [address] FEon 02-06-2023 Iron [Mass/Vol] 58 ug/dL Low 65-175 [facility] ([place]) Comment on above: Performed By: #### P SA, CMP, CBC, LIPID, VIDH, GFR, ADIFF, ANEU, A1C #### [address] [address] #### PTH #### [place] [address] Cal 02-06-2023 Ferritin [Mass/Vol] 139.0 ng/mL Normal 26.0-388.0 [facility] ([place]) Comment on above: Order Comment: 6 fris Performed By: #### P SA, CMP, CBC, LIPID, VIDH, GFR, ADIFF, ANEU, A1C #### [address] [address] #### PTH #### [place] [address] IBCon 02-06-2023 TIBC 304 mcg/dL Normal 250-450 [facility] ([place]) Comment on above: Performed By: #### P SA, CMP, CBC, LIPID, VIDH, GFR, ADIFF, ANEU, A1C #### [address] [address] #### PTH #### [place] [address] LABORATORYOrdered By: SYSTEM SYSTEM on 02-06-2023 Immature reticulocytes/Total reticulocytes (Bld) 0.44 IRF Normal 0.20 - 0.46 IRF AO Workflow SS Reticulocytes, Auto 1.6 % Normal 0.2 - 2.3 % AO W orkflow SS 25-hydroxyvitamin D3 [Mass/Vol] 41.4 ng/mL Invalid Interpretation Code AO ADM SS Comment on above: Interpretive Data: I nterpretive Values Based on Total 25(OH) Vitamin D: Deficient <20 ng/mL Insufficient 20 - <30 ng/mL Sufficient 30-100 ng/mL Albumin BCP dye [Mass/Vol] 3.8 G/dL Normal 3.4 - 4.8 G/dL AO ADM SS Albumin/Globulin [Mass ratio] 1.1 {ratio} Normal 1.1 - 2.5 ratio AO ADM SS ALP [Catalytic activity/Vol] 85 U/L Normal 40 - 135 U/L AO ADM SS ALT With P-5'-P [Catalytic activity/Vol] 31 U/L Normal 16 - 63 U/L AO ADM SS AST With P-5'-P [Catalytic activity/Vol] 20 U/L Normal 10 - 40 U/L AO ADM SS Basophil, Absolute 0.1 103/mcL Normal 0.0 - 0.2 10^3/mcL AO Workflow SS Basophils/100 WBC (Bld) 0.9 % Normal 0.0 - 2.5 % AO Workflow SS Bilirubin [Mass/Vol] 0.3 mg/dL Normal 0.2 - 1 .0 mg/dL AO ADM SS Comment on above: Interpretive Data: U se of this assay is not recommended for patients undergoing treatment with eltrombopag due to the potential for falsely elevated results. Calcium [Mass/Vol] 9.3 mg/dL Normal 8.4 - 10. 2 mg/dL AO ADM SS Chloride [Moles/Vol] 103 mmol/L Normal 98 - 10 7 mmol/L AO ADM SS CO2 [Moles/Vol] 25 mmol/L Normal 23 - 31 mmol/L AO ADM SS Creatinine [Mass/Vol] 1.45 mg/dL High 0.70 - 1.30 mg/dL AO ADM SS Electrolyte Balance 12.0 mEq/L Normal 4.0 - 15 .0 mEq/L AO ADM SS Eosinophil, Absolute 0.6 103/mcL High 0.0 - 0 .4 10^3/mcL AO Workflow SS Eosinophils/100 WBC (Bld) 7.2 % High 0.0 - 7.0 % AO Workflow SS Erythrocyte distribution width (RBC) [Ratio] 14.2 % Normal 11.5 - 14.5 % AO Workflow SS Ferritin [Mass/Vol] 139.0 ng/mL Normal 26.0 - 388.0 ng/mL AO ADM SS GFR/1.73 sq M.predicted among blacks MDRD (S/P/Bld) [Vol rate/Area] 58 ml/min/1.73sqm Invalid Interpretation Code AO Chemistry S Comment on above: Interpretive Data: GFR Population mean for , Non- Americans Ages 20-29 = 116 mL/min/1.73 sq.m. Ages 30-39 = 107 mL/min/1.73 sq.m. Ages 40-49 = 99 mL/min/1.73 sq.m. Ages 50-59 = 93 mL/min/1.73 sq.m. Ages 60-69 = 85 mL/min/1.73 sq.m. Ages 70+ = 75 mL/min/1.73 sq.m. Chronic Kidney Disease: Less than 60 mL/min/1.73 square meters End Stage Renal Disease: Less than 15 mL/min/1.73 square meters GFR/1.73 sq M.predicted among non-blacks MDRD (S/P/Bld) [Vol rate/Area] 48 ml/min/1.73sqm Invalid Interpretation Code AO Chemistry S Comment on above: Interpretive Data: GFR Population mean for , Non- Americans Ages 20-29 = 116 mL/min/1.73 sq.m. Ages 30-39 = 107 mL/min/1.73 sq.m. Ages 40-49 = 99 mL/min/1.73 sq.m. Ages 50-59 = 93 mL/min/1.73 sq.m. Ages 60-69 = 85 mL/min/1.73 sq.m. Ages 70+ = 75 mL/min/1.73 sq.m. Chronic Kidney Disease: Less than 60 mL/min/1.73 square meters End Stage Renal Disease: Less than 15 mL/min/1.73 square meters Globulin 3.5 G/dL Invalid Interpretation Code AO ADM SS Glucose [Mass/Vol] 121 mg/dL High 83 - 110 mg/dL AO ADM SS HbA1c (Bld) [Mass fraction] 6.5 % High 4.3 - 6.4 % AO ADM SS Hematocrit (Bld) [Volume fraction] 39.2 % Low 42.0 - 52.0 % AO Workflow SS Hemoglobin (Bld) [Mass/Vol] 13.2 G/dL Low 14.0 - 18.0 G/dL AO Workflow SS Iron [Mass/Vol] 58 ug/dL Low 65 - 175 mcg/dL AO ADM SS Iron binding capacity [Mass/Vol] 304 mcg/dL Normal 250 - 450 mcg/dL AO ADM SS Lymphocyte, Absolute 1.9 103/mcL Normal 0.8 - 3 .9 10^3/mcL AO Workflow SS Lymphocytes/100 WBC (Bld) 23.9 % Normal 10.0 - 50.0 % AO Workflow SS MCH (RBC) [Entitic mass] 29.4 pg Normal 27.0 - 31.2 pg AO Workflow SS MCHC 33.5 G/dL Normal 31.8 - 35.4 G/dL AO Workflow SS MCV (RBC) [Entitic vol] 87.5 fL Normal 80.0 - 94.0 fL AO Workflow SS Monocyte, Absolute 0.6 103/mcL Normal 0.2 - 1.0 10^3/mcL AO Workflow SS Monocytes/100 WBC (Bld) 8.1 % Normal 1.7 - 13.0 % AO Workflow SS Neutrophil, Absolute 4.7 103/mcL Normal 2.9 - 6 .2 10^3/mcL AO Workflow SS Neutrophils/100 WBC (Bld) 59.9 % Normal 37.0 - 80.0 % AO Workflow SS Parathyrin.intact [Mass/Vol] 59.1 pg/mL Normal 18.5 - 88.0 pg/mL AH ADM SS Platelet mean volume (Bld) [Entitic vol] 9.3 fL Normal 7.4 - 10.4 fL AO Workflow SS Platelets (Bld) [#/Vol] 259 103/mcL Normal 130 - 400 10^3/mcL AO Workflow SS Potassium [Moles/Vol] 5.0 mmol/L Normal 3.5 - 5.1 mmol/L AO ADM SS Prostate specific Ag [Mass/Vol] 0.81 ng/mL Normal 0.00 - 4.00 ng/mL AO ADM SS Protein [Mass/Vol] 7.3 G/dL Normal 6.4 - 8.2 G/dL AO ADM SS RBC (Bld) [#/Vol] 4.48 106/mcL Normal 4.04 - 6.1 3 10^6/mcL AO Workflow SS Sodium [Moles/Vol] 140 mmol/L Normal 136 - 145 mmol/L AO ADM SS Urea nitrogen [Mass/Vol] 25 mg/dL High 7 - 18 mg/dL AO ADM SS Urea nitrogen/Creatinine [Mass ratio] 17 ratio Normal 7 - 27 ratio AO ADM SS WBC (Bld) [#/Vol] 7.9 103/mcL Normal 4.6 - 10.8 10^3/mcL AO Workflow SS LABORATORYOrdered By: Lin Perez on 02-06-2023 Albumin DL <= 20 mg/L (U) [Mass/Vol] 8638 mcg/dL Invalid Interpretation Code AO ADM SS Albumin/Creatinine DL <= 20 mg/L (U) [Mass ratio] 52 mcg/mg High 0 - 30 mcg/mg AO ADM SS Cholesterol [Mass/Vol] 206 mg/dL High 0 - 200 mg/dL AO ADM SS Comment on above: Interpretive Data: C holesterol Reference Interval: Less than 200 Desirable 200-239 Borderline high risk 240 and above High risk Cholesterol in HDL [Mass/Vol] 66 mg/dL High 40 - 60 mg/dL AO ADM SS Cholesterol in LDL [Mass/Vol] 110 mg/dL Normal 0 - 130 mg/dL AO ADM SS Creatinine (U) [Mass/Vol] 167.5 mg/dL Normal 39.0 - 259.0 mg/dL AO ADM SS Triglyceride [Mass/Vol] 149 mg/dL Normal 0 - 150 mg/dL AO ADM SS Comment on above: Interpretive Data: T riglyceride Reference Interval: Less than 150 Normal 150-199 Borderline high risk 200-499 High risk 500 or higher Very high risk LIPIDon 02-06-2023 Cholesterol [Mass/Vol] 206 mg/dL High 0-200 [facility] ([place]) Comment on above: Result Comment: Chol esterol Reference Interval: Less than 200 Desirable 200-239 Borderline high risk 240 and above High risk Performed By: #### P SA, CMP, CBC, LIPID, VIDH, GFR, ADIFF, ANEU, A1C #### [address] [address] #### PTH #### [facility] [address] [place] [address] Cholesterol in HDL [Mass/Vol] 66 mg/dL High 40-60 [facility] ([place]) Comment on above: Performed By: #### P SA, CMP, CBC, LIPID, VIDH, GFR, ADIFF, ANEU, A1C #### [address] [address] #### PTH #### [address] [address] Cholesterol in LDL [Mass/Vol] 110 mg/dL Normal 0-130 [facility] ([place]) Comment on above: Performed By: #### P SA, CMP, CBC, LIPID, VIDH, GFR, ADIFF, ANEU, A1C #### [address] [address] #### PTH #### [address] [address] Triglyceride [Mass/Vol] 149 mg/dL Normal 0-150 [facility] ([place]) Comment on above: Result Comment: Trig lyceride Reference Interval: Less than 150 Normal 150-199 Borderline high risk 200-499 High risk 500 or higher Very high risk Performed By: #### P SA, CMP, CBC, LIPID, VIDH, GFR, ADIFF, ANEU, A1C #### [address] [address] #### PTH #### [address] [address] MALBRon 02-06-2023 U Creatinine 167.5 mg/dL Normal 39.0-259.0 [facility] ([place]) Comment on above: Performed By: #### P SA, CMP, CBC, LIPID, VIDH, GFR, ADIFF, ANEU, A1C #### [address] [address] #### PTH #### [address] [address] U Microalb 8638 mcg/dL Normal [facility] ([place]) Comment on above: Performed By: #### P SA, CMP, CBC, LIPID, VIDH, GFR, ADIFF, ANEU, A1C #### [address] [address] #### PTH #### [address] [address] U Ratio Alb/Cre 52 mcg/mg High [facility] ([place]) Comment on above: Performed By: #### P SA, CMP, CBC, LIPID, VIDH, GFR, ADIFF, ANEU, A1C #### [address] [address] #### PTH #### [place] [address] PSAon 02-06-2023 Prostate Specific Antigen 0.81 ng/mL Normal 0.00-4.00 [facility] ([place]) Comment on above: Performed By: #### P SA, CMP, CBC, LIPID, VIDH, GFR, ADIFF, ANEU, A1C #### [place] [address] #### PTH #### [place] [address] PTHon 02-06-2023 PTH, Intact 59.1 pg/mL Normal 18.5-88.0 [facility] ([place]) Comment on above: Performed By: #### P SA, CMP, CBC, LIPID, VIDH, GFR, ADIFF, ANEU, A1C #### [place] [address] #### PTH #### [place] [address] RETO (AO)on 02-06-2023 Immature Retic Fraction 0.44 IRF Normal 0.20-0.46 [facility] ([place]) Comment on above: Performed By: #### P SA, CMP, CBC, LIPID, VIDH, GFR, ADIFF, ANEU, A1C #### [place] [address] #### PTH #### [place] [address] Reticulocytes, Auto 1.6 % Normal 0.2-2.3 [facility] ([place]) Comment on above: Performed By: #### P SA, CMP, CBC, LIPID, VIDH, GFR, ADIFF, ANEU, A1C #### [place] [address] #### PTH #### [address] [address] VIDHon 02-06-2023 Vit. D 25-Hydroxy 41.4 ng/mL Normal [facility] ([place]) Comment on above: Result Comment: Inte rpretive Values Based on Total 25(OH) Vitamin D: Deficient <20 ng/mL Insufficient 20 - <30 ng/mL Sufficient 30-100 ng/mL Performed By: #### P SA, CMP, CBC, LIPID, VIDH, GFR, ADIFF, ANEU, A1C #### [facility] [address], [place] [address] #### PTH #### [address] [address] [address] ANGIOGRAPHY CHEST W/CONTR Antonietta 10-30-2022 CT ANGIOGRAPHY CHEST W/CONTRAST ORIGINAL EXAMINATION: CTA OF THE CHEST10/30/2022 3:54 pm CTA CHEST WITH CONTRAST TECHNIQUE: CTA of the chest was performed after the administration of intravenous contrast. Multiplanar reformatted images are provided for review. MIP images are provided for review. Automated exposure control, iterative reconstruction, and/or weight based adjustment of the mA/kV was utilized to reduce the radiation dose to as low as reasonably achievable. CTA of the thorax was acquired in the axial plane. Coronal and sagittal reformatted images were reviewed. Three dimensional reconstructions were created on a separate workstation. COMPARISON: Two-view chest 10/28/2022. HISTORY: ORDERING SYSTEM PROVIDED HISTORY: Reason for Exam: elevated D-dimer PT HAS BEEN SOB LATELY. PT HAD A LOT OF BLOOD CLOTS AFTER HIS COVID SHOT AND WAS RECENTLY TAKEN OFF OF HIS BLOOD THINNER FINDINGS: There is satisfactory pulmonary arterial contrast opacification with no evidence of pulmonary embolic disease. There are no pleural or pericardial effusions. The adrenal glands are normal. Thoracic aortic caliber is normal. There are no enlarged mediastinal or hilar lymph nodes. There is extensive coronary artery calcification. Lung window images: Right lung: Advanced upper lobe emphysema. No lung masses or nodules or infiltrates. Left lung: Advanced emphysema. There are no lung masses or nodules. There are no infiltrates. Widespread blastic osseous metastatic disease involving the clavicles and sternum and scapulae in bilateral ribs and thoracic and visualized upper lumbar spine no evidence of pathologic fracture. IMPRESSION: 1. No evidence of pulmonary embolic disease. No acute intrathoracic process. 2. Extensive blastic osseous metastatic disease. 3. Advanced bilateral upper lobe emphysema. Interpreted by: Hipolito Patel Preliminary Report By: Hipolito Patel Electronically signed By Hipolito Patel Dictated Date: 10/30/2022 3:57:27 PM Prelim Date: 10/30/2022 4:04:24 PM Sign Date: 10/30/2022 4:04:24 PM Ordering Provider: SILVERIO BOLIVAR [facility] ([place]) XR CHEST 2 VIEWSon 3 XR CHEST 2 VIEWS ORIGINAL HISTORY: Short of breath, prostate cancer with bone Mets COMPARISON: No FINDINGS: There are a few questionable pulmonary nodules in the central lungs; these may be of vessels. The lungs are otherwise clear. The cardiac silhouette is within normal size limits. The pulmonary vasculature is unremarkable in appearance. There is a diffuse heterogeneous appearance to the bony elements, with innumerable metastases throughout. IMPRESSION: Other than a few possible small nodules, clear lungs. Extensive metastatic disease to bone. Interpreted by: Cecilia Barrios MD Preliminary Report By: Cecilia Barrios MD Electronically signed By Cecilia Barrios MD Dictated Date: 10/29/2022 8:29:11 AM Prelim Date: 10/29/2022 8:30:55 AM Sign Date: 10/29/2022 8:30:55 AM Ordering Provider: SILVERIO BOLIVAR [facility] .Auto Diffon 10-28-2022 Basophil, Absolute 0.0 10 3/mcL Normal 0.0-0.2 [facility]) Comment on above: Performed By: #### P SA, CMP, CBC, LIPID, VIDH, GFR, ADIFF, ANEU, A1C #### [address] [address] #### PTH #### [address] [address] Basophils/100 WBC (Bld) 0.5 % Normal 0.0-2.5 [facility]) Comment on above: Performed By: #### P SA, CMP, CBC, LIPID, VIDH, GFR, ADIFF, ANEU, A1C #### [address] [address] #### PTH #### [address] [address] Eosinophil, Absolute 0.1 10 3/mcL Normal 0.0-0.4 [facility] ([place]) Comment on above: Performed By: #### P SA, CMP, CBC, LIPID, VIDH, GFR, ADIFF, ANEU, A1C #### [place] [id number] #### PTH #### [address] [address] Eosinophils/100 WBC (Bld) 1.4 % Normal 0.0-7.0 [facility] ([place]) Comment on above: Performed By: #### P SA, CMP, CBC, LIPID, VIDH, GFR, ADIFF, ANEU, A1C #### [place] [id number] #### PTH #### [place] [address] Lymphocyte, Absolute 1.8 10 3/mcL Normal 0.8-3.9 [facility] ([place]) Comment on above: Performed By: #### P SA, CMP, CBC, LIPID, VIDH, GFR, ADIFF, ANEU, A1C #### [place] [id number] #### PTH #### [address] [address] Lymphocytes/100 WBC (Bld) 17.7 % Normal 10.0-50.0 [facility] ([place]) Comment on above: Performed By: #### P SA, CMP, CBC, LIPID, VIDH, GFR, ADIFF, ANEU, A1C #### [place] [address] #### PTH #### [address] [address] Monocyte, Absolute 0.5 10 3/mcL Normal 0.2-1.0 [facility] ([place]) Comment on above: Performed By: #### P SA, CMP, CBC, LIPID, VIDH, GFR, ADIFF, ANEU, A1C #### [address] [address] #### PTH #### [address] [address] Monocytes/100 WBC (Bld) 5.0 % Normal 1.7-13.0 [facility] ([place]) Comment on above: Performed By: #### P SA, CMP, CBC, LIPID, VIDH, GFR, ADIFF, ANEU, A1C #### [address] [address] #### PTH #### [address] [address] Neutrophils/100 WBC (Bld) 75.4 % Normal 37.0-80.0 [facility] ([place]) Comment on above: Performed By: #### P SA, CMP, CBC, LIPID, VIDH, GFR, ADIFF, ANEU, A1C #### [address] [address] #### PTH #### [address] [address] .GFRon 10-28-2022 GFR Non- 48 ml/min/1.73sqm Normal [facility] ([place]) Comment on above: Result Comment: GFR Population mean for , Non- Americans Ages 20-29 = 116 mL/min/1.73 sq.m. Ages 30-39 = 107 mL/min/1.73 sq.m. Ages 40-49 = 99 mL/min/1.73 sq.m. Ages 50-59 = 93 mL/min/1.73 sq.m. Ages 60-69 = 85 mL/min/1.73 sq.m. Ages 70+ = 75 mL/min/1.73 sq.m. Chronic Kidney Disease: Less than 60 mL/min/1.73 square meters End Stage Renal Disease: Less than 15 mL/min/1.73 square meters Performed By: #### P SA, CMP, CBC, LIPID, VIDH, GFR, ADIFF, ANEU, A1C #### [address] [address] #### PTH #### [address] [address] GFR 59 ml/min/1.73sqm Normal [facility] ([place]) Comment on above: Result Comment: GFR Population mean for , Non- Americans Ages 20-29 = 116 mL/min/1.73 sq.m. Ages 30-39 = 107 mL/min/1.73 sq.m. Ages 40-49 = 99 mL/min/1.73 sq.m. Ages 50-59 = 93 mL/min/1.73 sq.m. Ages 60-69 = 85 mL/min/1.73 sq.m. Ages 70+ = 75 mL/min/1.73 sq.m. Chronic Kidney Disease: Less than 60 mL/min/1.73 square meters End Stage Renal Disease: Less than 15 mL/min/1.73 square meters Performed By: #### P SA, CMP, CBC, LIPID, VIDH, GFR, ADIFF, ANEU, A1C #### [place] [address] #### PTH #### [address] [address] .NEUABSon 10-28-2022 Neutrophil, Absolute 7.6 10 3/mcL High 2.9-6.2 [facility] ([place]) Comment on above: Performed By: #### P SA, CMP, CBC, LIPID, VIDH, GFR, ADIFF, ANEU, A1C #### [address] [address] #### PTH #### [address] [address] CBCon 10-28-2022 Erythrocyte distribution width (RBC) [Ratio] 14.8 % High 11.5-14.5 [facility] ([place]) Comment on above: Performed By: #### P SA, CMP, CBC, LIPID, VIDH, GFR, ADIFF, ANEU, A1C #### [address] [address] #### PTH #### [address] [address] Hematocrit (Bld) [Volume fraction] 40.1 % Low 42.0-52.0 [facility] ([place]) Comment on above: Performed By: #### P SA, CMP, CBC, LIPID, VIDH, GFR, ADIFF, ANEU, A1C #### [address] [address] #### PTH #### [place] [address] Hgb 13.3 G/dL Low 14.0-18.0 [facility] ([place]) Comment on above: Performed By: #### P SA, CMP, CBC, LIPID, VIDH, GFR, ADIFF, ANEU, A1C #### [place] [address] #### PTH #### [place] [address] MCH (RBC) [Entitic mass] 28.9 pg Normal 27.0-31.2 [facility] ([place]) Comment on above: Performed By: #### P SA, CMP, CBC, LIPID, VIDH, GFR, ADIFF, ANEU, A1C #### [place] [address] #### PTH #### [place] [address] MCHC 33.0 G/dL Normal 31.8-35.4 [facility] ([place]) Comment on above: Performed By: #### P SA, CMP, CBC, LIPID, VIDH, GFR, ADIFF, ANEU, A1C #### [place] [address] #### PTH #### [place] [address] MCV (RBC) [Entitic vol] 87.5 fL Normal 80.0-94.0 [facility] ([place]) Comment on above: Performed By: #### P SA, CMP, CBC, LIPID, VIDH, GFR, ADIFF, ANEU, A1C #### [place] [address] #### PTH #### [place] [address] Platelet 274 10 3/mcL Normal 130-400 [facility] ([place]) Comment on above: Performed By: #### P SA, CMP, CBC, LIPID, VIDH, GFR, ADIFF, ANEU, A1C #### [address] [address] #### PTH #### [place] [address] Platelet mean volume (Bld) [Entitic vol] 9.2 fL Normal 7.4-10.4 [facility] ([place]) Comment on above: Performed By: #### P SA, CMP, CBC, LIPID, VIDH, GFR, ADIFF, ANEU, A1C #### [place] [address] #### PTH #### [place] [address] RBC 4.59 10 6/mcL Normal 4.04-6.13 [facility] ([place]) Comment on above: Performed By: #### P SA, CMP, CBC, LIPID, VIDH, GFR, ADIFF, ANEU, A1C #### [place] [address] #### PTH #### [place] [address] WBC 10.1 10 3/mcL Normal 4.6-10.8 [facility] ([place]) Comment on above: Performed By: #### P SA, CMP, CBC, LIPID, VIDH, GFR, ADIFF, ANEU, A1C #### [place] [address] #### PTH #### [place] [address] CMPon 10-28-2022 Albumin Level 3.9 G/dL Normal 3.4-4.8 [facility] ([place]) Comment on above: Performed By: #### P SA, CMP, CBC, LIPID, VIDH, GFR, ADIFF, ANEU, A1C #### [place] [address] #### PTH #### [place] [id number] Albumin/Globulin [Mass ratio] 1.0 {ratio} Low 1.1-2.5 [facility] ([place]) Comment on above: Performed By: #### P SA, CMP, CBC, LIPID, VIDH, GFR, ADIFF, ANEU, A1C #### [address] [address] #### PTH #### [address] [address] ALP [Catalytic activity/Vol] 91 U/L Normal 40-135 [facility] ([place]) Comment on above: Performed By: #### P SA, CMP, CBC, LIPID, VIDH, GFR, ADIFF, ANEU, A1C #### [place] [address] #### PTH #### [place] [address] ALT [Catalytic activity/Vol] 23 U/L Normal 16-63 [facility] ([place]) Comment on above: Performed By: #### P SA, CMP, CBC, LIPID, VIDH, GFR, ADIFF, ANEU, A1C #### [place] [address] #### PTH #### [place] [address] AST [Catalytic activity/Vol] 16 U/L Normal 10-40 [facility] ([place]) Comment on above: Performed By: #### P SA, CMP, CBC, LIPID, VIDH, GFR, ADIFF, ANEU, A1C #### [place] [address] #### PTH #### [place] [address] Bili Total 0.4 mg/dL Normal 0.2-1.0 [facility] ([place]) Comment on above: Result Comment: Use of this assay is not recommended for patients undergoing treatment with eltrombopag due to the potential for falsely elevated results. Performed By: #### P SA, CMP, CBC, LIPID, VIDH, GFR, ADIFF, ANEU, A1C #### [address] [address] #### PTH #### [address] [address] BUN/Creatinine Ratio 12 ratio Normal 7-27 [facility] ([place]) Comment on above: Performed By: #### P SA, CMP, CBC, LIPID, VIDH, GFR, ADIFF, ANEU, A1C #### [address] [address] #### PTH #### [address] [address] Calcium [Mass/Vol] 9.2 mg/dL Normal 8.4-10.2 [facility] ([place]) Comment on above: Performed By: #### P SA, CMP, CBC, LIPID, VIDH, GFR, ADIFF, ANEU, A1C #### [address] [address] #### PTH #### [place] [address] Chloride [Moles/Vol] 102 mmol/L Normal 98-107 [facility] ([place]) Comment on above: Performed By: #### P SA, CMP, CBC, LIPID, VIDH, GFR, ADIFF, ANEU, A1C #### [address] [address] #### PTH #### [address] [address] CO2 [Moles/Vol] 28 mmol/L Normal 23-31 [facility] ([place]) Comment on above: Performed By: #### P SA, CMP, CBC, LIPID, VIDH, GFR, ADIFF, ANEU, A1C #### [address] [address] #### PTH #### [address] [address] Creatinine [Mass/Vol] 1.44 mg/dL High 0.70-1.30 [facility] ([place]) Comment on above: Performed By: #### P SA, CMP, CBC, LIPID, VIDH, GFR, ADIFF, ANEU, A1C #### [address] [address] #### PTH #### [address] [address] Electrolyte Balance 9.0 mEq/L Normal 4.0-15.0 [facility] ([place]) Comment on above: Performed By: #### P SA, CMP, CBC, LIPID, VIDH, GFR, ADIFF, ANEU, A1C #### [place] [address] #### PTH #### [address] [address] Globulin 3.9 G/dL Normal [facility] ([place]) Comment on above: Performed By: #### P SA, CMP, CBC, LIPID, VIDH, GFR, ADIFF, ANEU, A1C #### [place] [address] #### PTH #### [place] [address] Glucose [Mass/Vol] 110 mg/dL Normal 83-110 [facility] ([place]) Comment on above: Performed By: #### P SA, CMP, CBC, LIPID, VIDH, GFR, ADIFF, ANEU, A1C #### [place] [address] #### PTH #### [place] [address] Potassium [Moles/Vol] 5.0 mmol/L Normal 3.5-5.1 [facility] ([place]) Comment on above: Performed By: #### P SA, CMP, CBC, LIPID, VIDH, GFR, ADIFF, ANEU, A1C #### [place] [address] #### PTH #### [place] [address] Sodium [Moles/Vol] 139 mmol/L Normal 136-145 [facility] ([place]) Comment on above: Performed By: #### P SA, CMP, CBC, LIPID, VIDH, GFR, ADIFF, ANEU, A1C #### [address] [address] #### PTH #### [address] [address] Total Protein 7.8 G/dL Normal 6.4-8.2 [facility] ([place]) Comment on above: Performed By: #### P SA, CMP, CBC, LIPID, VIDH, GFR, ADIFF, ANEU, A1C #### [address] [address] #### PTH #### [address] [address] Urea nitrogen [Mass/Vol] 17 mg/dL Normal 7-18 [facility] ([place]) Comment on above: Performed By: #### P SA, CMP, CBC, LIPID, VIDH, GFR, ADIFF, ANEU, A1C #### [address] [address] #### PTH #### [place] [address] CRPon 10-28-2022 C-Reactive Protein 0.2 mg/dL Normal 0.0-0.3 [facility] ([place]) Comment on above: Performed By: #### P SA, CMP, CBC, LIPID, VIDH, GFR, ADIFF, ANEU, A1C #### [address] [address] #### PTH #### [place] [address] DIMERon 10-28-2022 D-Dimer 648 ng/mL D-DU High 0-230 [facility] ([place]) Comment on above: Result Comment: The result of the D-Dimer test should be evaluated in the context of all the clinical and laboratory data available. In those instances where the laboratory result does not agree with the clinical evaluation, additional tests should be performed accordingly. If the D-Dimer result is used to exclude DVT or PE, the recommended cutoff value is less than 230 ng/mL. The D-Dimer result should not be used alone to rule in DVT/PE, but should be used in conjunction with a clinical pretest probability (PTP)assessment model to exclude venous thromboembolism (VTE) in outpatients suspected of deep venous thrombosis (DVT) and pulmonary embolism (PE). Performed By: #### P SA, CMP, CBC, LIPID, VIDH, GFR, ADIFF, ANEU, A1C #### [address] [address] #### PTH #### [address] [address] FEon 10-28-2022 Iron [Mass/Vol] 73 ug/dL Normal 65-175 [facility] ([place]) Comment on above: Performed By: #### P SA, CMP, CBC, LIPID, VIDH, GFR, ADIFF, ANEU, A1C #### [address] [address] #### PTH #### [address] [address] Cal 10-28-2022 Ferritin [Mass/Vol] 121.0 ng/mL Normal 26.0-388.0 [facility] ([place]) Comment on above: Performed By: #### P SA, CMP, CBC, LIPID, VIDH, GFR, ADIFF, ANEU, A1C #### [address] [address] #### PTH #### [address] [address] IBCon 10-28-2022 TIBC 341 mcg/dL Normal 250-450 [facility] ([place]) Comment on above: Performed By: #### P SA, CMP, CBC, LIPID, VIDH, GFR, ADIFF, ANEU, A1C #### [address] [address] #### PTH #### [address] [address] LABORATORYOrdered By: SYSTEM SYSTEM on 10-28-2022 Immature reticulocytes/Total reticulocytes (Bld) 0.49 IRF Invalid Interpretation Code 0.20 - 0.46 IRF AO Workflow SS Reticulocytes, Auto 1.6 1 Invalid Interpretation Code 0.2 - 2.3 % AO Workflow SS Albumin BCP dye [Mass/Vol] 3.9 G/dL Invalid Interpretation Code 3.4 - 4.8 G/dL AO ADM SS Albumin/Globulin [Mass ratio] 1.0 {ratio} Invalid Interpretation Code 1.1 - 2.5 ratio AO ADM SS ALP [Catalytic activity/Vol] 91 U/L Invalid Interpretation Code 40 - 135 U/L AO ADM SS ALT With P-5'-P [Catalytic activity/Vol] 23 U/L Invalid Interpretation Code 16 - 63 U/L AO ADM SS AST With P-5'-P [Catalytic activity/Vol] 16 U/L Invalid Interpretation Code 10 - 40 U/L AO ADM SS Basophil, Absolute 0.0 103/mcL Invalid Interpretation Code 0.0 - 0.2 10^3/mcL AO Workflow SS Basophils/100 WBC (Bld) 0.5 % Invalid Interpretation Code 0.0 - 2.5 % AO Workflow SS Bilirubin [Mass/Vol] 0.4 mg/dL Invalid Interpretation Code 0.2 - 1.0 mg/dL AO ADM SS Comment on above: Interpretive Data: U se of this assay is not recommended for patients undergoing treatment with eltrombopag due to the potential for falsely elevated results. Calcium [Mass/Vol] 9.2 mg/dL Invalid Interpretation Code 8.4 - 10.2 mg/dL AO ADM SS Chloride [Moles/Vol] 102 mmol/L Invalid Interpretation Code 98 - 107 mmol/L AO ADM SS CO2 [Moles/Vol] 28 mmol/L Invalid Interpretation Code 23 - 31 mmol/L AO ADM SS Creatinine [Mass/Vol] 1.44 mg/dL Invalid Interpretation Code 0.70 - 1.30 mg/dL AO ADM SS CRP [Mass/Vol] 0.2 mg/dL Invalid Interpretation Code 0.0 - 0.3 mg/dL AO ADM SS Electrolyte Balance 9.0 mEq/L Invalid Interpretation Code 4.0 - 15.0 mEq/L AO ADM SS Eosinophil, Absolute 0.1 103/mcL Invalid Interpretation Code 0.0 - 0.4 10^3/mcL AO Workflow SS Eosinophils/100 WBC (Bld) 1.4 % Invalid Interpretation Code 0.0 - 7.0 % AO Workflow SS Erythrocyte distribution width (RBC) [Ratio] 14.8 % Invalid Interpretation Code 11.5 - 14.5 % AO Workflow SS Ferritin [Mass/Vol] 121.0 ng/mL Invalid Interpretation Code 26.0 - 388.0 ng/mL AO ADM SS GFR/1.73 sq M.predicted among blacks MDRD (S/P/Bld) [Vol rate/Area] 59 ml/min/1.73sqm Invalid Interpretation Code AO Chemistry S Comment on above: Interpretive Data: GFR Population mean for , Non- Americans Ages 20-29 = 116 mL/min/1.73 sq.m. Ages 30-39 = 107 mL/min/1.73 sq.m. Ages 40-49 = 99 mL/min/1.73 sq.m. Ages 50-59 = 93 mL/min/1.73 sq.m. Ages 60-69 = 85 mL/min/1.73 sq.m. Ages 70+ = 75 mL/min/1.73 sq.m. Chronic Kidney Disease: Less than 60 mL/min/1.73 square meters End Stage Renal Disease: Less than 15 mL/min/1.73 square meters GFR/1.73 sq M.predicted among non-blacks MDRD (S/P/Bld) [Vol rate/Area] 48 ml/min/1.73sqm Invalid Interpretation Code AO Chemistry S Comment on above: Interpretive Data: GFR Population mean for , Non- Americans Ages 20-29 = 116 mL/min/1.73 sq.m. Ages 30-39 = 107 mL/min/1.73 sq.m. Ages 40-49 = 99 mL/min/1.73 sq.m. Ages 50-59 = 93 mL/min/1.73 sq.m. Ages 60-69 = 85 mL/min/1.73 sq.m. Ages 70+ = 75 mL/min/1.73 sq.m. Chronic Kidney Disease: Less than 60 mL/min/1.73 square meters End Stage Renal Disease: Less than 15 mL/min/1.73 square meters Globulin 3.9 G/dL Invalid Interpretation Code AO ADM SS Glucose [Mass/Vol] 110 mg/dL Invalid Interpretation Code 83 - 110 mg/dL AO ADM SS Hematocrit (Bld) [Volume fraction] 40.1 % Invalid Interpretation Code 42.0 - 52.0 % AO Workflow SS Hemoglobin (Bld) [Mass/Vol] 13.3 G/dL Invalid Interpretation Code 14.0 - 18.0 G/dL AO Workflow SS Iron [Mass/Vol] 73 ug/dL Invalid Interpretation Code 65 - 175 mcg/dL AO ADM SS Iron binding capacity [Mass/Vol] 341 mcg/dL Invalid Interpretation Code 250 - 450 mcg/dL AO ADM SS Lymphocyte, Absolute 1.8 103/mcL Invalid Interpretation Code 0.8 - 3.9 10^3/mcL AO Workflow SS Lymphocytes/100 WBC (Bld) 17.7 % Invalid Interpretation Code 10.0 - 50.0 % AO Workflow SS MCH (RBC) [Entitic mass] 28.9 pg Invalid Interpretation Code 27.0 - 31.2 pg AO Workflow SS MCHC 33.0 G/dL Invalid Interpretation Code 31.8 - 35.4 G/dL AO Workflow SS MCV (RBC) [Entitic vol] 87.5 fL Invalid Interpretation Code 80.0 - 94.0 fL AO Workflow SS Monocyte, Absolute 0.5 103/mcL Invalid Interpretation Code 0.2 - 1.0 10^3/mcL AO Workflow SS Monocytes/100 WBC (Bld) 5.0 % Invalid Interpretation Code 1.7 - 13.0 % AO Workflow SS Natriuretic peptide.B prohormone N-Terminal [Mass/Vol] 121 pg/mL Invalid Interpretation Code 0 - 125 pg/mL AO ADM SS Comment on above: Interpretive Data: N T-proBNP results of less than 300 pg/mL effectively rules out acute congestive heart failure with 99% negative predictive value. Neutrophil, Absolute 7.6 103/mcL Invalid Interpretation Code 2.9 - 6.2 10^3/mcL AO Workflow SS Neutrophils/100 WBC (Bld) 75.4 % Invalid Interpretation Code 37.0 - 80.0 % AO Workflow SS Platelet mean volume (Bld) [Entitic vol] 9.2 fL Invalid Interpretation Code 7.4 - 10.4 fL AO Workflow SS Platelets (Bld) [#/Vol] 274 103/mcL Invalid Interpretation Code 130 - 400 10^3/mcL AO Workflow SS Potassium [Moles/Vol] 5.0 mmol/L Invalid Interpretation Code 3.5 - 5.1 mmol/L AO ADM SS Protein [Mass/Vol] 7.8 G/dL Invalid Interpretation Code 6.4 - 8.2 G/dL AO ADM SS RBC (Bld) [#/Vol] 4.59 106/mcL Invalid Interpretation Code 4.04 - 6.13 10^6/mcL AO Workflow SS Sodium [Moles/Vol] 139 mmol/L Invalid Interpretation Code 136 - 145 mmol/L AO ADM SS Urea nitrogen [Mass/Vol] 17 mg/dL Invalid Interpretation Code 7 - 18 mg/dL AO ADM SS Urea nitrogen/Creatinine [Mass ratio] 12 ratio Invalid Interpretation Code 7 - 27 ratio AO ADM SS WBC (Bld) [#/Vol] 10.1 103/mcL Invalid Interpretation Code 4.6 - 10.8 10^3/mcL AO Workflow SS LABORATORYOrdered By: Rosanna Prakash on 10-28-2022 Fibrin D-dimer DDU (PPP) [Mass/Vol] 648 ng/mL D-DU Invalid Interpretation Code 0 - 230 ng/mL D-DU AO [facility] SS Comment on above: Interpretive Data: T he result of the D-Dimer test should be evaluated in the context of all the clinical and laboratory data available. In those instances where the laboratory result does not agree with the clinical evaluation, additional tests should be performed accordingly. If the D-Dimer result is used to exclude DVT or PE, the recommended cutoff value is less than 230 ng/mL. The D-Dimer result should not be used alone to rule in DVT/PE, but should be used in conjunction with a clinical pretest probability (PTP)assessment model to exclude venous thromboembolism (VTE) in outpatients suspected of deep venous thrombosis (DVT) and pulmonary embolism (PE). PBNPon 10-28-2022 Natriuretic peptide B (Bld) [Mass/Vol] 121 pg/mL Normal 0-125 [facility] ([place]) Comment on above: Result Comment: NT-p roBNP results of less than 300 pg/mL effectively rules out acute congestive heart failure with 99% negative predictive value. Performed By: #### P SA, CMP, CBC, LIPID, VIDH, GFR, ADIFF, ANEU, A1C #### [address] [address] #### PTH #### [place] [address] RETO (AO)on 10-28-2022 Immature Retic Fraction 0.49 IRF High 0.20-0.46 [facility] ([place]) Comment on above: Performed By: #### P SA, CMP, CBC, LIPID, VIDH, GFR, ADIFF, ANEU, A1C #### [address] [address] #### PTH #### [facility] [address] [place] [id number] Reticulocytes, Auto 1.6 % Normal 0.2-2.3 [facility] ([place]) Comment on above: Performed By: #### P SA, CMP, CBC, LIPID, VIDH, GFR, ADIFF, ANEU, A1C #### [place] [address] [place], [place] [address] #### PTH #### [facility] [address] [place] [phone] No Panel Informationon 04-17 [facility] Basophil percentageon 2021 Bilirubin [Mass/Vol] 0.30 mg/dL 0.20-1.00 [facility] Work Phone: Comment on above: For patients on eltr ombopag therapy, use of Dimension [place] TBIL is not recommended. Chloride [Moles/Vol] 101 mmol/L 98-107 [facility] Work Phone: Glucose [Mass/Vol] 126 mg/dL 74-106 [facility] Work Phone: Comment on above: Fasting Glucose resu lt greater than or equal to 126 mg/dL suggests DIABETES MELLITUS per A.D.A. criteria. Potassium [Moles/Vol] 3.8 mmol/L 3.5-5.1 [facility] Work Phone: Protein [Mass/Vol] 7.6 g/dL 6.4-8.2 [facility] Work Phone: Sodium [Moles/Vol] 136 mmol/L 136-145 [facility] Work Phone: WBC (Bld) [#/Vol] 13.3 10*3/uL 4.4-11.0 [facility] Work Phone: Blood erythrocytes count (nu mber/volume)on 02-22-2022 RBC (Bld) [#/Vol] 4.57 10*6/uL 4.6-6.2 [facility] Work Phone: Blood hemoglobin measurement (mass/volume)on 02-22-2022 Hemoglobin (Bld) [Mass/Vol] 13.2 g/dL 13.0-16.5 [facility] Work Phone: [phone] Blood platelet mean volumeon 02-22-2022 Platelet mean volume (Bld) [Entitic vol] 10.6 fL 6.2-12.0 [facility] Work Phone: [phone] Determination of erythrocyte mean corpuscular volume (MCV)on 02-22-2022 MCV (RBC) [Entitic vol] 88.0 fL 80-94 [facility] Work Phone: Hematocrit Auto (Bld) [Volum e fraction]on 02-22-2022 Hematocrit (Bld) [Volume fraction] 40.2 % 40-54 [facility] Work Phone: Laboratory - Chemistry and C hemistry - challengeon 02-22-2022 ALP [Catalytic activity/Vol] 89 U/L 45-117 [facility] Work Phone: ALT [Catalytic activity/Vol] 18 U/L 16-61 [facility] Work Phone: [phone] CO2 [Moles/Vol] 28.0 mmol/L 21.0-32.0 [facility] Work Phone: Globulin (S) [Mass/Vol] 4.4 g/dL 2.2-4.2 [facility] Work Phone: [phone] Urea nitrogen/Creatinine [Mass ratio] 12.4 mg/mg 10-20 [facility] Work Phone: [phone] Laboratory - Hematology and Cell countson 02-22-2022 Erythrocyte distribution width (RBC) [Entitic vol] 43.0 fL 35.1-43.9 [facility] Work Phone: [phone] Erythrocyte distribution width (RBC) [Ratio] 13.6 % 11.6-14.6 [facility] Work Phone: [phone] MCH (RBC) [Entitic mass] 28.9 pg 27.0-32.0 [facility] Work Phone: MCHC Auto (RBC) [Mass/Vol]on 02-22-2022 MCHC (RBC) [Mass/Vol] 32.8 g/dL 32-36 [facility] Work Phone: No Panel Informationon 02-22 D-Dimer Quantitative (PE/DVT) 1.55 FEU/ug/m 0.27-0.49 [facility] Work Phone: Comment on above: CRITICAL VALUE VERIF IED. CALLED TO [id number]/[id number]/22 1002 Erasmo Gloria.RESULTS READ BACK BY SAME. D-Dimer ELEVATED (>0.49): Additional studies and clinicalassessments are indicated to conclude diagnosis of:Deep Vein Thrombosis (DVT) or Pulmonary Embolism (PE) Estimated GFR (MDRD) Amer 71 mL/min >60 [facility] Work Phone: Comment on above: GFR Calc Estimated GFR (MDRD) Non-Af Amer 58 mL/min >60 [facility] Work Phone: Comment on above: Non- GFR Calc Platelets bldon 02-22-2022 Platelets (Bld) [#/Vol] 320 10*3/uL 150-450 [facility] Work Phone: Serum or plasma C reactive p rotein measurement (mass/volume)on 02-22-2022 CRP [Mass/Vol] 30.20 mg/L 0.0-3.0 [facility] Work Phone: Comment on above: C-Reactive Protein ( CRP) provides useful information for thediagnosis, therapy and monitoring of inflammatory processesand associated diseases. For the evaluation of Relative Riskfor Cardiovascular Disease, a High Sensitivity CRP (HSCRP)should be ordered. Serum or plasma albumin kailash urement (mass/volume)on 02-22-2022 Albumin [Mass/Vol] 3.2 g/dL 3.2-5.0 [facility] Work Phone: Serum or plasma albumin/glob ulin mass ratioon 02-22-2022 Albumin/Globulin [Mass ratio] 0.7 {ratio} 0.9-2.4 [facility] Work Phone: Serum or plasma calcium kailash urement (mass/volume)on 02-22-2022 Calcium [Mass/Vol] 9.3 mg/dL 8.5-10.1 [facility] Work Phone: Serum or plasma creatinine m easurement (mass/volume)on 02-22-2022 Creatinine [Mass/Vol] 1.29 mg/dL 0.70-1.30 [facility] Work Phone: Comment on above: The validity of the calculated GFR & GFRAA in patients over 70 years has not been determined. Clinical correlation is essential. Serum or plasma urea nitroge n measurement (mass/volume)on 02-22-2022 Urea nitrogen [Mass/Vol] 16 mg/dL 7-18 [facility] Work Phone: Thin prep Papanicolaou smear with manual screeningon 02-22-2022 Thin prep Papanicolaou smear with manual screening 14 U/L 15-37 [facility] Work Phone: Thin prep Papanicolaou smear with manual screening 7 5-15 [facility] Work Phone: LABORATORYOrdered By: Conner Da Silva on 01-17-2022 Albumin BCP dye [Mass/Vol] 3.7 G/dL Invalid Interpretation Code 3.4 - 4.8 G/dL AO ADM SS Albumin/Globulin [Mass ratio] 1.1 {ratio} Invalid Interpretation Code 1.1 - 2.5 ratio AO ADM SS ALP [Catalytic activity/Vol] 93 U/L Invalid Interpretation Code 40 - 135 U/L AO ADM SS ALT With P-5'-P [Catalytic activity/Vol] 18 U/L Invalid Interpretation Code 16 - 63 U/L AO ADM SS AST With P-5'-P [Catalytic activity/Vol] 17 U/L Invalid Interpretation Code 10 - 40 U/L AO ADM SS Bilirubin [Mass/Vol] 0.4 mg/dL Invalid Interpretation Code 0.2 - 1.0 mg/dL AO ADM SS Calcium [Mass/Vol] 9.6 mg/dL Invalid Interpretation Code 8.4 - 10.2 mg/dL AO ADM SS Chloride [Moles/Vol] 100 mmol/L Invalid Interpretation Code 98 - 107 mmol/L AO ADM SS Cholesterol [Mass/Vol] 197 mg/dL Invalid Interpretation Code 0 - 200 mg/dL AO ADM SS Cholesterol in HDL [Mass/Vol] 72 mg/dL Invalid Interpretation Code 40 - 60 mg/dL AO ADM SS Cholesterol in LDL [Mass/Vol] 95 mg/dL Invalid Interpretation Code 0 - 130 mg/dL AO ADM SS CO2 [Moles/Vol] 31 mmol/L Invalid Interpretation Code 23 - 31 mmol/L AO ADM SS Creatinine [Mass/Vol] 1.30 mg/dL Invalid Interpretation Code 0.70 - 1.30 mg/dL AO ADM SS Electrolyte Balance 7.0 mEq/L Invalid Interpretation Code 4.0 - 15.0 mEq/L AO ADM SS Globulin 3.5 G/dL Invalid Interpretation Code AO ADM SS Glucose [Mass/Vol] 118 mg/dL Invalid Interpretation Code 83 - 110 mg/dL AO ADM SS HbA1c (Bld) [Mass fraction] 6.6 % Invalid Interpretation Code 4.3 - 6.4 % AO ADM SS Iron [Mass/Vol] 72 ug/dL Invalid Interpretation Code 65 - 175 mcg/dL AO ADM SS Potassium [Moles/Vol] 4.4 mmol/L Invalid Interpretation Code 3.5 - 5.1 mmol/L AO ADM SS Prostate specific Ag [Mass/Vol] 0.22 ng/mL Invalid Interpretation Code 0.00 - 4.00 ng/mL AO ADM SS Protein [Mass/Vol] 7.2 G/dL Invalid Interpretation Code 6.4 - 8.2 G/dL AO ADM SS Sodium [Moles/Vol] 138 mmol/L Invalid Interpretation Code 136 - 145 mmol/L AO ADM SS Triglyceride [Mass/Vol] 150 mg/dL Invalid Interpretation Code 0 - 150 mg/dL AO ADM SS Urea nitrogen [Mass/Vol] 20 mg/dL Invalid Interpretation Code 7 - 18 mg/dL AO ADM SS Urea nitrogen/Creatinine [Mass ratio] 15 ratio Invalid Interpretation Code 7 - 27 ratio AO ADM SS LABORATORYOrdered By: Conner Harris on 01-17-2022 Basophil, Absolute 0.1 103/mcL Invalid Interpretation Code 0.0 - 0.2 10^3/mcL AO Workflow SS Basophils/100 WBC (Bld) 1.1 % Invalid Interpretation Code 0.0 - 2.5 % AO Workflow SS Eosinophil, Absolute 0.4 103/mcL Invalid Interpretation Code 0.0 - 0.4 10^3/mcL AO Workflow SS Eosinophils/100 WBC (Bld) 3.3 % Invalid Interpretation Code 0.0 - 7.0 % AO Workflow SS Erythrocyte distribution width (RBC) [Ratio] 14.5 % Invalid Interpretation Code 11.5 - 14.5 % AO Workflow SS Hematocrit (Bld) [Volume fraction] 39.7 % Invalid Interpretation Code 42.0 - 52.0 % AO Workflow SS Hemoglobin (Bld) [Mass/Vol] 13.3 G/dL Invalid Interpretation Code 14.0 - 18.0 G/dL AO Workflow SS Lymphocyte, Absolute 2.1 103/mcL Invalid Interpretation Code 0.8 - 3.9 10^3/mcL AO Workflow SS Lymphocytes/100 WBC (Bld) 18.8 % Invalid Interpretation Code 10.0 - 50.0 % AO Workflow SS MCH (RBC) [Entitic mass] 29.3 pg Invalid Interpretation Code 27.0 - 31.2 pg AO Workflow SS MCHC 33.6 G/dL Invalid Interpretation Code 31.8 - 35.4 G/dL AO Workflow SS MCV (RBC) [Entitic vol] 87.3 fL Invalid Interpretation Code 80.0 - 94.0 fL AO Workflow SS Monocyte, Absolute 0.7 103/mcL Invalid Interpretation Code 0.2 - 1.0 10^3/mcL AO Workflow SS Monocytes/100 WBC (Bld) 6.8 % Invalid Interpretation Code 1.7 - 13.0 % AO Workflow SS Neutrophil, Absolute 7.7 103/mcL Invalid Interpretation Code 2.9 - 6.2 10^3/mcL AO Workflow SS Neutrophils/100 WBC (Bld) 70.0 % Invalid Interpretation Code 37.0 - 80.0 % AO Workflow SS Platelet mean volume (Bld) [Entitic vol] 9.0 fL Invalid Interpretation Code 7.4 - 10.4 fL AO Workflow SS Platelets (Bld) [#/Vol] 307 103/mcL Invalid Interpretation Code 130 - 400 10^3/mcL AO Workflow SS RBC (Bld) [#/Vol] 4.55 106/mcL Invalid Interpretation Code 4.04 - 6.13 10^6/mcL AO Workflow SS WBC (Bld) [#/Vol] 10.9 103/mcL Invalid Interpretation Code 4.6 - 10.8 10^3/mcL AO Workflow SS LABORATORYOrdered By: SYSTEM SYSTEM on 01-17-2022 GFR 66 ml/min/1.73sqm Invalid Interpretation Code AO Chemistry S GFR Non- 55 ml/min/1.73sqm Invalid Interpretation Code AO Chemistry S LABORATORYOrdered By: Lin Perez on 07-12-2021 Albumin BCP dye [Mass/Vol] 3.9 G/dL Invalid Interpretation Code 3.4 - 4.8 G/dL AO ADM SS Albumin/Globulin [Mass ratio] 1.0 {ratio} Invalid Interpretation Code 1.1 - 2.5 ratio AO ADM SS ALP [Catalytic activity/Vol] 100 U/L Invalid Interpretation Code 40 - 135 U/L AO ADM SS ALT With P-5'-P [Catalytic activity/Vol] 20 U/L Invalid Interpretation Code 16 - 63 U/L AO ADM SS AST With P-5'-P [Catalytic activity/Vol] 18 U/L Invalid Interpretation Code 10 - 40 U/L AO ADM SS Bilirubin [Mass/Vol] 0.4 mg/dL Invalid Interpretation Code 0.2 - 1.0 mg/dL AO ADM SS Calcium [Mass/Vol] 9.5 mg/dL Invalid Interpretation Code 8.4 - 10.2 mg/dL AO ADM SS Chloride [Moles/Vol] 100 mmol/L Invalid Interpretation Code 98 - 107 mmol/L AO ADM SS Cholesterol [Mass/Vol] 199 mg/dL Invalid Interpretation Code 0 - 200 mg/dL AO ADM SS Cholesterol in HDL [Mass/Vol] 67 mg/dL Invalid Interpretation Code 40 - 60 mg/dL AO ADM SS Cholesterol in LDL [Mass/Vol] 96 mg/dL Invalid Interpretation Code 0 - 130 mg/dL AO ADM SS CO2 [Moles/Vol] 30 mmol/L Invalid Interpretation Code 23 - 31 mmol/L AO ADM SS Creatinine [Mass/Vol] 1.39 mg/dL Invalid Interpretation Code 0.70 - 1.30 mg/dL AO ADM SS Electrolyte Balance 11.0 mEq/L Invalid Interpretation Code 4.0 - 15.0 mEq/L AO ADM SS Globulin 3.8 G/dL Invalid Interpretation Code AO ADM SS Glucose [Mass/Vol] 127 mg/dL Invalid Interpretation Code 83 - 110 mg/dL AO ADM SS Iron [Mass/Vol] 74 ug/dL Invalid Interpretation Code 65 - 175 mcg/dL AO ADM SS Potassium [Moles/Vol] 4.5 mmol/L Invalid Interpretation Code 3.5 - 5.1 mmol/L AO ADM SS Protein [Mass/Vol] 7.7 G/dL Invalid Interpretation Code 6.4 - 8.2 G/dL AO ADM SS Sodium [Moles/Vol] 141 mmol/L Invalid Interpretation Code 136 - 145 mmol/L AO ADM SS Triglyceride [Mass/Vol] 181 mg/dL Invalid Interpretation Code 0 - 150 mg/dL AO ADM SS Urea nitrogen [Mass/Vol] 18 mg/dL Invalid Interpretation Code 7 - 18 mg/dL AO ADM SS Urea nitrogen/Creatinine [Mass ratio] 13 ratio Invalid Interpretation Code 7 - 27 ratio AO ADM SS LABORATORYOrdered By: Conner Da Silva on 07-12-2021 Basophil, Absolute 0.10 103/mcL Invalid Interpretation Code 0.00 - 0.19 10^3/mcL AO Auto Heme SS Basophils/100 WBC (Bld) 0.7 % Invalid Interpretation Code 0.0 - 2.5 % AO Auto Heme SS Eosinophil, Absolute 0.30 103/mcL Invalid Interpretation Code 0.00 - 0.40 10^3/mcL AO Auto Heme SS Eosinophils/100 WBC (Bld) 2.8 % Invalid Interpretation Code 0.0 - 7.0 % AO Auto Heme SS Erythrocyte distribution width (RBC) [Ratio] 15.0 % Invalid Interpretation Code 11.5 - 14.5 % AO Auto Heme SS Hematocrit (Bld) [Volume fraction] 39.5 % Invalid Interpretation Code 42.0 - 52.0 % AO Auto Heme SS Hemoglobin (Bld) [Mass/Vol] 13.4 G/dL Invalid Interpretation Code 14.0 - 18.0 G/dL AO Auto Heme SS Lymphocyte, Absolute 1.90 103/mcL Invalid Interpretation Code 0.77 - 3.85 10^3/mcL AO Auto Heme SS Lymphocytes/100 WBC (Bld) 20.7 % Invalid Interpretation Code 10.0 - 50.0 % AO Auto Heme SS MCH (RBC) [Entitic mass] 29.8 pg Invalid Interpretation Code 27.0 - 31.2 pg AO Auto Heme SS MCHC (RBC) [Mass/Vol] 34.0 G/dL Invalid Interpretation Code 31.8 - 35.4 G/dL AO Auto Heme SS MCV (RBC) [Entitic vol] 87.8 fL Invalid Interpretation Code 80.0 - 94.0 fL AO Auto Heme SS Monocyte, Absolute 0.60 103/mcL Invalid Interpretation Code 0.15 - 1.00 10^3/mcL AO Auto Heme SS Monocytes/100 WBC (Bld) 6.3 % Invalid Interpretation Code 1.7 - 13.0 % AO Auto Heme SS Neutrophil, Absolute 6.50 103/mcL Invalid Interpretation Code 2.85 - 6.16 10^3/mcL AO Auto Heme SS Neutrophils/100 WBC (Bld) 69.5 % Invalid Interpretation Code 37.0 - 80.0 % AO Auto Heme SS Platelet mean volume (Bld) [Entitic vol] 9.5 fL Invalid Interpretation Code 7.4 - 10.4 fL AO Auto Heme SS Platelets (Bld) [#/Vol] 337 103/mcL Invalid Interpretation Code 130 - 400 10^3/mcL AO Auto Heme SS RBC (Bld) [#/Vol] 4.50 106/mcL Invalid Interpretation Code 4.04 - 6.13 10^6/mcL AO Auto Heme SS WBC (Bld) [#/Vol] 9.30 103/mcL Invalid Interpretation Code 4.60 - 10.80 10^3/mcL AO Auto Heme SS LABORATORYOrdered By: SYSTEM SYSTEM on 07-12-2021 Cobalamin (Vitamin B12) [Mass/Vol] 326 pg/mL Invalid Interpretation Code 211 - 911 pg/mL ADM SS Folate [Mass/Vol] 9.22 ng/mL Invalid Interpretation Code 5.38 - 24.00 ng/mL AH ADM SS GFR 61 ml/min/1.73sqm Invalid Interpretation Code AO Chemistry S GFR Non- 51 ml/min/1.73sqm Invalid Interpretation Code AO Chemistry S Parathyrin.intact [Mass/Vol] 52.4 pg/mL Invalid Interpretation Code 18.5 - 88.0 pg/mL AH ADM SS LABORATORYOrdered By: BRYAN_Yelena HOLDEN CONTRIBUTOR_SYSTEM on 07-12-2021 Direct Renin 61.0 pg/mL Invalid Interpretation Code 3.6-81.6pg/ mL AO Sendouts SS Comment on above: Result Comment: A ra igor of aldosterone in ng/dL to direct renin in pg/mL greater than or equal to 3.8 is a positive screening test result for primary aldosteronism, when aldosterone is greater than or equal to 15 ng/dL. The reference interval for direct renin is based on an upright position. The supine reference intervals are: Age <41 years: 3.2-33.2 pg/mL Age >=41 years: 2.5-45.1 pg/mL Performed By: [facility] [address] [address] Gizzard Skin Remover: Abhilash Medel III, M.D. CLIA#: [id number] Patient Upright or Supine Upright Invalid Interpretation Code AO Sendouts SS Comment on above: Result Comment: Perf ormed By: [facility] [address] [place] [address] Gizzard Skin Remover: Abhilash Medel III, M.D. CLIA#: [id number] LABORATORYOrdered By: Tatyana Poe on 01-12-2021 Albumin BCP dye [Mass/Vol] 3.9 G/dL Invalid Interpretation Code 3.4 - 4.8 G/dL AO ADM SS Albumin/Globulin [Mass ratio] 1.1 {ratio} Invalid Interpretation Code 1.1 - 2.5 ratio AO ADM SS ALP [Catalytic activity/Vol] 109 U/L Invalid Interpretation Code 40 - 135 U/L AO ADM SS ALT With P-5'-P [Catalytic activity/Vol] 23 U/L Invalid Interpretation Code 16 - 63 U/L AO ADM SS AST With P-5'-P [Catalytic activity/Vol] 16 U/L Invalid Interpretation Code 10 - 40 U/L AO ADM SS Basophil, Absolute 0.10 103/mcL Invalid Interpretation Code 0.00 - 0.19 10^3/mcL AO Auto Heme SS Basophils/100 WBC (Bld) 0.7 % Invalid Interpretation Code 0.0 - 2.5 % AO Auto Heme SS Bilirubin [Mass/Vol] 0.4 mg/dL Invalid Interpretation Code 0.2 - 1.0 mg/dL AO ADM SS Calcium [Mass/Vol] 9.3 mg/dL Invalid Interpretation Code 8.4 - 10.2 mg/dL AO ADM SS Chloride [Moles/Vol] 100 mmol/L Invalid Interpretation Code 98 - 107 mmol/L AO ADM SS Cholesterol [Mass/Vol] 213 mg/dL Invalid Interpretation Code 0 - 200 mg/dL AO ADM SS Cholesterol in HDL [Mass/Vol] 72 mg/dL Invalid Interpretation Code 40 - 60 mg/dL AO ADM SS Cholesterol in LDL [Mass/Vol] 113 mg/dL Invalid Interpretation Code 0 - 130 mg/dL AO ADM SS CO2 [Moles/Vol] 29 mmol/L Invalid Interpretation Code 23 - 31 mmol/L AO ADM SS Creatinine [Mass/Vol] 1.49 mg/dL Invalid Interpretation Code 0.70 - 1.30 mg/dL AO ADM SS Electrolyte Balance 9.0 mEq/L Invalid Interpretation Code AO ADM SS Eosinophil, Absolute 0.30 103/mcL Invalid Interpretation Code 0.00 - 0.40 10^3/mcL AO Auto Heme SS Eosinophils/100 WBC (Bld) 3.2 % Invalid Interpretation Code 0.0 - 7.0 % AO Auto Heme SS Erythrocyte distribution width (RBC) [Ratio] 15.3 % Invalid Interpretation Code 11.5 - 14.5 % AO Auto Heme SS Globulin 3.6 G/dL Invalid Interpretation Code AO ADM SS Glucose [Mass/Vol] 123 mg/dL Invalid Interpretation Code 80 - 115 mg/dL AO ADM SS Hematocrit (Bld) [Volume fraction] 38.6 % Invalid Interpretation Code 42.0 - 52.0 % AO Auto Heme SS Hemoglobin (Bld) [Mass/Vol] 12.9 G/dL Invalid Interpretation Code 14.0 - 18.0 G/dL AO Auto Heme SS Lymphocyte, Absolute 1.80 103/mcL Invalid Interpretation Code 0.77 - 3.85 10^3/mcL AO Auto Heme SS Lymphocytes/100 WBC (Bld) 18.0 % Invalid Interpretation Code 10.0 - 50.0 % AO Auto Heme SS MCH (RBC) [Entitic mass] 28.9 pg Invalid Interpretation Code 27.0 - 31.2 pg AO Auto Heme SS MCHC (RBC) [Mass/Vol] 33.4 G/dL Invalid Interpretation Code 31.8 - 35.4 G/dL AO Auto Heme SS MCV (RBC) [Entitic vol] 86.5 fL Invalid Interpretation Code 80.0 - 94.0 fL AO Auto Heme SS Monocyte, Absolute 0.70 103/mcL Invalid Interpretation Code 0.15 - 1.00 10^3/mcL AO Auto Heme SS Monocytes/100 WBC (Bld) 6.7 % Invalid Interpretation Code 1.7 - 13.0 % AO Auto Heme SS Neutrophil, Absolute 7.00 103/mcL Invalid Interpretation Code 2.85 - 6.16 10^3/mcL AO Auto Heme SS Neutrophils/100 WBC (Bld) 71.4 % Invalid Interpretation Code 37.0 - 80.0 % AO Auto Heme SS Platelet mean volume (Bld) [Entitic vol] 9.4 fL Invalid Interpretation Code 7.4 - 10.4 fL AO Auto Heme SS Platelets (Bld) [#/Vol] 300 103/mcL Invalid Interpretation Code 130 - 400 10^3/mcL AO Auto Heme SS Potassium [Moles/Vol] 4.3 mmol/L Invalid Interpretation Code 3.5 - 5.1 mmol/L AO ADM SS Prostate specific Ag [Mass/Vol] 0.24 ng/mL Invalid Interpretation Code 0.00 - 4.00 ng/mL AO ADM SS Protein [Mass/Vol] 7.5 G/dL Invalid Interpretation Code 6.4 - 8.2 G/dL AO ADM SS RBC (Bld) [#/Vol] 4.46 106/mcL Invalid Interpretation Code 4.04 - 6.13 10^6/mcL AO Auto Heme SS Sodium [Moles/Vol] 138 mmol/L Invalid Interpretation Code 136 - 145 mmol/L AO ADM SS Triglyceride [Mass/Vol] 141 mg/dL Invalid Interpretation Code 0 - 150 mg/dL AO ADM SS Urea nitrogen [Mass/Vol] 16 mg/dL Invalid Interpretation Code 7 - 18 mg/dL AO ADM SS Urea nitrogen/Creatinine [Mass ratio] 11 ratio Invalid Interpretation Code 7 - 27 ratio AO ADM SS WBC (Bld) [#/Vol] 9.80 103/mcL Invalid Interpretation Code 4.60 - 10.80 10^3/mcL AO Auto Heme SS LABORATORYOrdered By: SYSTEM SYSTEM on 01-12-2021 GFR 57 ml/min/1.73sqm Invalid Interpretation Code AO Chemistry S GFR Non- 47 ml/min/1.73sqm Invalid Interpretation Code AO Chemistry S Vital Signs Date Time Vital Sign Value Performing Clinician Facility 12-28-2024 13:44-0400 Body height 180.34 cm Silverio CHRISTIANC Work Phone: [facility] 12-28-2024 13:44-0400 Body mass index (BMI) [Ratio] 29.2 kg/m2 Silverio CHRISTIANC Work Phone: [facility] 12-28-2024 13:44-0400 Body temperature 97.1 [degF] Silverio CHRISTIANC Work Phone: [facility] 12-28-2024 13:44-0400 Body weight 95.25 kg Silverio Bolivar HAND [employer]MER[employer] Work Phone: [facility] 12-28-2024 13:44-0400 Diastolic blood pressure 86 mm[Hg] Silverio Bolivar HAND [employer]MER[employer] Work Phone: [facility] 12-28-2024 13:44-0400 Heart rate 71 /min Silverio Bolivar [employer] Work Phone: [facility] 12-28-2024 13:44-0400 Respiratory rate 18 /min Silverio Bolivar [employer] Work Phone: [facility] 12-28-2024 13:44-0400 SaO2% (BldA) [Mass fraction] 96 % Silverio Bolivar HAND [employer] Work Phone: [facility] 12-28-2024 13:44-0400 Systolic blood pressure 161 mm[Hg] Silverio Bolivar [employer] Work Phone: [facility] 09-24-2024 11:24-0400 Body mass index (BMI) [Ratio] 30.35 kg/m2 Luis Miguel Guy MD Work Phone: [facility] 09-24-2024 11:24-0400 Body temperature 97.11 [degF] Luis Miguel Guy MD Work Phone: [facility] 09-24-2024 11:24-0400 Body weight 96.16 kg Luis Miguel Guy MD Work Phone: [facility] 09-24-2024 11:24-0400 Diastolic blood pressure 78 mm[Hg] Luis Miguel Guy MD Work Phone: [facility] 09-24-2024 11:24-0400 Heart rate 64 /min Luis Miguel Guy MD Work Phone: [facility] 09-24-2024 11:24-0400 SaO2% (BldA) [Mass fraction] 95 % Luis Miguel Guy MD Work Phone: [facility] 09-24-2024 11:24-0400 Systolic blood pressure 153 mm[Hg] Luis Miguel Guy MD Work Phone: [facility] 08-24-2024 13:50-0400 Body temperature 96.91 [degF] Jack Pearson MD Work Phone: [facility] 08-24-2024 13:50-0400 Diastolic blood pressure 76 mm[Hg] Jack Pearson MD Work Phone: [facility] 08-24-2024 13:50-0400 Heart rate 74 /min Jack Pearson MD Work Phone: [facility] 08-24-2024 13:50-0400 Respiratory rate 20 /min Jack Pearson MD Work Phone: [facility] 08-24-2024 13:50-0400 SaO2% (BldA) [Mass fraction] 94 % Jack Pearson MD Work Phone: [facility] 08-24-2024 13:50-0400 Systolic blood pressure 112 mm[Hg] Jack Pearson MD Work Phone: [facility] 08-17-2024 13:58-0400 Body temperature 97 [degF] Jack Pearson MD Work Phone: [facility] 08-17-2024 13:58-0400 Diastolic blood pressure 81 mm[Hg] Jack Pearson MD Work Phone: [facility] 08-17-2024 13:58-0400 Heart rate 78 /min Jack Pearson MD Work Phone: [facility] 08-17-2024 13:58-0400 SaO2% (BldA) [Mass fraction] 96 % Jack Pearson MD Work Phone: [facility] 08-17-2024 13:58-0400 Systolic blood pressure 126 mm[Hg] Jack Pearson MD Work Phone: [facility] 08-09-2024 09:29-0400 Body mass index (BMI) [Ratio] 30.21 kg/m2 Jack Pearson MD Work Phone: [facility] 08-09-2024 09:29-0400 Body temperature 97 [degF] Jack Pearson MD Work Phone: [facility] 08-09-2024 09:29-0400 Body weight 95.71 kg Jack Pearson MD Work Phone: [facility] 08-09-2024 09:29-0400 Diastolic blood pressure 82 mm[Hg] Jack Pearson MD Work Phone: [facility] 08-09-2024 09:29-0400 Heart rate 70 /min Jack Pearson MD Work Phone: [facility] 08-09-2024 09:29-0400 Respiratory rate 14 /min Jack Pearson MD Work Phone: [facility] 08-09-2024 09:29-0400 SaO2% (BldA) [Mass fraction] 93 % Jack Pearson MD Work Phone: [facility] 08-09-2024 09:29-0400 Systolic blood pressure 145 mm[Hg] Jack Pearson MD Work Phone: [facility] 08-06-2024 08:16-0400 Body mass index (BMI) [Ratio] 30.57 kg/m2 Luis Miguel Guy MD Work Phone: [facility] 08-06-2024 08:16-0400 Body temperature 97.2 [degF] Luis Miguel Guy MD Work Phone: [facility] 08-06-2024 08:16-0400 Body weight 96.84 kg Luis Miguel Guy MD Work Phone: [facility] 08-06-2024 08:16-0400 Diastolic blood pressure 80 mm[Hg] Luis Miguel Guy MD Work Phone: [facility] 08-06-2024 08:16-0400 Heart rate 71 /min Luis Miguel Guy MD Work Phone: [facility] 08-06-2024 08:16-0400 SaO2% (BldA) [Mass fraction] 93 % Luis Miguel Guy MD Work Phone: [facility] 08-06-2024 08:16-0400 Systolic blood pressure 131 mm[Hg] Luis Miguel Guy MD Work Phone: [facility] 04-19-2024 13:09-0500 Blood Pressure Location OSMEL ALEXIS DO [facility] 04-19-2024 13:09-0500 Blood Pressure Method OSMEL TILLMANT D O [facility] 04-19-2024 13:09-0500 Diastolic Blood Pressure Non-Invasive 84 mm[Hg] OSMEL TILLMANT [facility] 04-19-2024 13:09-0500 Heart rate 68 /min OSMEL TILLMANT [facility] 04-19-2024 13:09-0500 Respiratory rate 18 /min OSMEL ALEXIS DO [facility] 04-19-2024 13:09-0500 Systolic Blood Pressure Non-Invasive 162 mm[Hg] OSMEL TILLMANT [facility] 04-19-2024 09:07-0500 Blood Pressure Location OSMEL TILLMANT [facility] 04-19-2024 09:07-0500 Blood Pressure Method OSMEL Mosley O [facility] 04-19-2024 09:07-0500 Body temperature 98.24 [degF] OSMEL TILLMANT [facility] 04-19-2024 09:07-0500 Body weight 102.3 kg OSMEL TILLMANT DO [facility] 04-19-2024 09:07-0500 Diastolic Blood Pressure Non-Invasive 91 mm[Hg] OSMEL ALEXIS DO [facility] 04-19-2024 09:07-0500 Heart rate 62 /min OSMEL ALEXIS DO [facility] 04-19-2024 09:07-0500 Respiratory rate 18 /min [facility] 04-19-2024 09:07-0500 Systolic Blood Pressure Non-Invasive 180 mm[Hg] OSMEL ALEXIS DO [facility] 02-18-2024 13:17-0500 Body mass index (BMI) [Ratio] 31.93 kg/m2 Luis Miguel Guy MD Work Phone: [facility] 02-18-2024 13:17-0500 Body temperature 97.81 [degF] Luis Miguel Guy MD Work Phone: [facility] 02-18-2024 13:17-0500 Body weight 101.15 kg Luis Miguel Guy MD Work Phone: [facility] 02-18-2024 13:17-0500 Diastolic blood pressure 81 mm[Hg] Luis Miguel Guy MD Work Phone: [facility] 02-18-2024 13:17-0500 Heart rate 62 /min Luis Miguel Guy MD Work Phone: [facility] 02-18-2024 13:17-0500 SaO2% (BldA) [Mass fraction] 93 % Luis Miguel Guy MD Work Phone: [facility] 02-18-2024 13:17-0500 Systolic blood pressure 131 mm[Hg] Luis Miguel Guy MD Work Phone: [facility] 11-26-2023 10:34-0400 Body mass index (BMI) [Ratio] 31.5 kg/m2 Luis Miguel Guy MD Work Phone: [facility] 11-26-2023 10:34-0400 Body temperature 97.7 [degF] Luis Miguel Guy MD Work Phone: [facility] 11-26-2023 10:34-0400 Body weight 99.79 kg Luis Miguel Guy MD Work Phone: [facility] 11-26-2023 10:34-0400 Diastolic blood pressure 70 mm[Hg] Luis Miguel Guy MD Work Phone: [facility] 11-26-2023 10:34-0400 Heart rate 60 /min Luis Miguel Guy MD Work Phone: [facility] 11-26-2023 10:34-0400 SaO2% (BldA) [Mass fraction] 91 % Luis Miguel Guy MD Work Phone: [facility] 11-26-2023 10:34-0400 Systolic blood pressure 112 mm[Hg] Luis Miguel Guy MD Work Phone: [facility] 09-03-2023 10:36-0400 Body mass index (BMI) [Ratio] 31.28 kg/m2 Luis Miguel Guy MD Work Phone: [facility] 09-03-2023 10:36-0400 Body temperature 97.3 [degF] Luis Miguel Guy MD Work Phone: [facility] 09-03-2023 10:36-0400 Body weight 99.11 kg Luis Miguel Guy MD Work Phone: [facility] 09-03-2023 10:36-0400 Diastolic blood pressure 75 mm[Hg] Luis Miguel Guy MD Work Phone: [facility] 09-03-2023 10:36-0400 Heart rate 60 /min Luis Miguel Guy MD Work Phone: [facility] 09-03-2023 10:36-0400 SaO2% (BldA) [Mass fraction] 98 % Luis Miguel Guy MD Work Phone: [facility] 09-03-2023 10:36-0400 Systolic blood pressure 117 mm[Hg] Luis Miguel Guy MD Work Phone: [facility] 06-10-2023 10:190400 Body temperature 97.9 [degF] Luis Miguel Guy MD Work Phone: [facility] 06-10-2023 10:190400 Body weight 101.83 kg Luis Miguel Guy MD Work Phone: [facility] 06-10-2023 10:19-0400 Diastolic blood pressure 66 mm[Hg] Luis Miguel Guy MD Work Phone: [facility] 06-10-2023 10:190400 Heart rate 61 /min Luis Miguel Guy MD Work Phone: [facility] 06-10-2023 10:190400 SaO2% (BldA) [Mass fraction] 94 % Luis Miguel Guy MD Work Phone: [facility] 06-10-2023 10:19-0400 Systolic blood pressure 111 mm[Hg] Luis Miguel Guy MD Work Phone: [facility] 01-21-2023 13:59-0500 Body height 180.34 cm HAND [employer]MER-C Silverio Bolivar HAND STEMMER Work Phone: [facility] 01-21-2023 13:59-0500 Body weight 90.71 kg HAND [employer]C Silverio Bolivar HAND STEMMER Work Phone: [facility] 01-21-2023 13:59-0500 Heart rate 62 /min HAND [employer] Silverio Bolivar HAND STEMMER Work Phone: [facility] 01-21-2023 13:59-0500 SaO2% (BldA) [Mass fraction] 93 % HAND [employer] Silverio Bolivar HAND STEMMER Work Phone: [facility] 01-07-2023 05:57-0400 Body height 182.88 cm HAND STEMMER-Yelena Bolivar HAND STEMMER Work Phone: [facility] 01-07-2023 05:57-0400 Body mass index (BMI) [Ratio] 27.6 kg/m2 [employer] Silverio Bolivar HAND STEMMER Work Phone: [facility] 01-07-2023 05:57-0400 Body temperature 97.5 [degF] HAND [employer]MER[employer]C Silverio Bolivar HAND STEMMER Work Phone: [facility] 01-07-2023 05:57-0400 Body weight 92.53 kg HAND [employer]MER-C Silverio Bolivar HAND STEMMER Work Phone: [facility] 01-07-2023 05:57-0400 Diastolic blood pressure 76 mm[Hg] HAND STEMMER-C Silverio Bolivar HAND STEMMER Work Phone: [facility] 01-07-2023 05:57-0400 Heart rate 62 /min HAND [employer]-C Silverio Bolivar HAND STEMMER Work Phone: [facility] 01-07-2023 05:57-0400 Respiratory rate 18 /min HAND [employer] Silverio Bolivar HAND STEMMER Work Phone: [facility] 01-07-2023 05:57-0400 SaO2% (BldA) [Mass fraction] 99 % [employer] Silverio Bolivar HAND STEMMER Work Phone: [facility] 01-07-2023 05:57-0400 Systolic blood pressure 127 mm[Hg] HAND STEMMER-C Silverio Boilvar HAND STEMMER Work Phone: [facility] 12-24-2022 09:33-0400 Body height 178 cm Luis Miguel Guy MD Work Phone: [facility] 12-24-2022 09:33-0400 Body temperature 96.69 [degF] Luis Miguel Guy MD Work Phone: [facility] 12-24-2022 09:33-0400 Body weight 97.3 kg Luis Miguel Guy MD Work Phone: [facility] 12-24-2022 09:33-0400 Diastolic blood pressure 74 mm[Hg] Luis Miguel Guy MD Work Phone: [facility] 12-24-2022 09:33-0400 Heart rate 58 /min Luis Miguel Guy MD Work Phone: [facility] 12-24-2022 09:33-0400 SaO2% (BldA) [Mass fraction] 96 % Luis Miguel Guy MD Work Phone: [facility] 12-24-2022 09:33-0400 Systolic blood pressure 124 mm[Hg] Luis Miguel Guy MD Work Phone: [facility] 07-09-2022 09:25-0400 Body temperature 97.7 [degF] Treatment Wstr Work Phone: [facility] 07-09-2022 09:25-0400 Diastolic blood pressure 87 mm[Hg] Treatment Wstr Work Phone: [facility] 07-09-2022 09:25-0400 Heart rate 62 /min Treatment Wstr Work Phone: [facility] 07-09-2022 09:25-0400 Systolic blood pressure 140 mm[Hg] Treatment Wstr Work Phone: [facility] 04-16-2022 08:46-0500 Body temperature 97.3 [degF] Roscoe Garcia SHUTTLE ROUTE VEHICLE OPERATOR.PET TRAINER Work Phone: [facility] 04-16-2022 08:46-0500 Body weight 95.03 kg Vianney Garcia SHUTTLE ROUTE VEHICLE OPERATOR.PET TRAINER Work Phone: [facility] 04-16-2022 08:46-0500 Diastolic blood pressure 82 mm[Hg] Vianney Garcia SHUTTLE ROUTE VEHICLE OPERATOR.PET TRAINER Work Phone: [facility] 04-16-2022 08:46-0500 Heart rate 62 /min Vianney Garcia SHUTTLE ROUTE VEHICLE OPERATOR.PET TRAINER Work Phone: [facility] 04-16-2022 08:46-0500 Systolic blood pressure 141 mm[Hg] Vianney Garcia SHUTTLE ROUTE VEHICLE OPERATOR.PET TRAINER Work Phone: [facility] 01-22-2022 12:04-0500 Body temperature 96.91 [degF] Rogelio Bee MD Work Phone: [facility] 01-22-2022 12:04-0500 Body weight 92.53 kg Rogelio Bee MD Work Phone: [facility] 01-22-2022 12:04-0500 Diastolic blood pressure 80 mm[Hg] Rogelio Bee MD Work Phone: [facility] 01-22-2022 12:04-0500 Heart rate 56 /min Rogelio Bee MD Work Phone: [facility] 01-22-2022 12:04-0500 Systolic blood pressure 152 mm[Hg] Rogelio Bee MD Work Phone: [facility] 10-30-2021 09:34-0400 Body temperature 97.11 [degF] Rogelio Bee MD Work Phone: [facility] 10-30-2021 09:34-0400 Body weight 91.85 kg Rogelio Bee MD Work Phone: [facility] 10-30-2021 09:34-0400 Diastolic blood pressure 80 mm[Hg] Rogelio Bee MD Work Phone: [facility] 10-30-2021 09:34-0400 Heart rate 54 /min Rogelio Bee MD Work Phone: [facility] 10-30-2021 09:34-0400 Systolic blood pressure 150 mm[Hg] Rogelio Bee MD Work Phone: [facility] 08-07-2021 09:38-0400 Body temperature 97.5 [degF] Rogelio Bee MD Work Phone: [facility] 08-07-2021 09:38-0400 Body weight 94.12 kg Rogelio Bee MD Work Phone: [facility] 08-07-2021 09:38-0400 Diastolic blood pressure 83 mm[Hg] Rogelio Bee MD Work Phone: [facility] 08-07-2021 09:38-0400 Heart rate 63 /min Rogelio Bee MD Work Phone: [facility] 08-07-2021 09:38-0400 SaO2% (BldA) [Mass fraction] 94 % Rogelio Bee MD Work Phone: [facility] 08-07-2021 09:38-0400 Systolic blood pressure 132 mm[Hg] Rogelio Bee MD Work Phone: [facility] Encounters Encounter Date Encounter Type Care Provider Facility Start: 01-18-2025 ambulatory Silverio Bolivar HAND STEMMER Facility:[facility] Start: 01-17-2025 ambulatory Silvreio Bolivar HAND STEMMER Facility:[facility] Start: 12-28-2024 End: 12-28-2024 Patient encounter procedure Claudia Smith HAND STEMMER-C -[facility] Work Phone: Start: 12-28-2024 End: 12-28-2024 ambulatory Silverio Bolivar HAND STEMMER-C Work Phone: -[facility] Start: 12-17-2024 End: 12-17-2024 ambulatory ROGELIO BEE Facility:[facility] Start: 12-10-2024 End: 12-10-2024 ambulatory LUIS MIGUEL GUY Facility:[facility] Start: 11-29-2024 End: 11-29-2024 ambulatory Silverio Bolivar HAND STEMMER-C Work Phone: -[facility] Start: 11-29-2024 End: 11-29-2024 Patient encounter procedure Claudia Smith HAND STEMMER-C -[facility] Work Phone: Start: 11-29-2024 End: 11-29-2024 ambulatory Silverio Bolivar HAND STEMMER Facility:[facility] Start: 11-01-2024 End: 11-01-2024 Specialty Pharmacy Yi Chin [facility] Comment on above: SPP Oral Oncology/he matology - Medication Refill (Xtandi) Start: 10-01-2024 Non-patient / Non-visit Dr. Sreedhar pacheco MD -[facility] Start: 10-01-2024 End: 10-01-2024 Patient encounter procedure Gina Sharif PA -Cardiovascular Services Work Phone: Start: 10-01-2024 End: 10-01-2024 Specialty Pharmacy Yi Chin [facility] Comment on above: SPP Oral Oncology/he matology - Medication Refill (Xtandi 40 mg) Start: 10-01-2024 End: 10-01-2024 ambulatory Gina Sharif Facility:[facility] Start: 09-27-2024 End: 09-27-2024 ambulatory SILVERIO Melany OSMEL Facility:[facility] Start: 09-27-2024 End: 09-27-2024 Follow-up encounter Jack Pearson MD Work Phone: Radiation Oncology Comment on above: Radiotherapy follow- up (Primary Dx); Prostate cancer metastatic to bone (HCC) Start: 09-27-2024 End: 09-27-2024 Telemedicine consultation with patient Jack Pearson MD Work Phone: Radiation Oncology Start: 09-24-2024 End: 09-24-2024 Patient encounter procedure Luis Miguel Guy MD Work Phone: Hematology/Oncology Start: 09-24-2024 End: 09-24-2024 ambulatory Luis Miguel Guy MD Work Phone: Hematology/Oncology Comment on above: Malignant neoplasm o f prostate (HCC) (Primary Dx) Malignant neoplasm o f prostate (HCC) (Primary Dx); Prostate cancer metastatic to bone (HCC) Start: 09-17-2024 End: 09-17-2024 ambulatory LUIS MIGUEL GUY Facility:[facility] Start: 09-13-2024 End: 09-13-2024 Refill Luis Miguel Guy MD Work Phone: Hematology/Oncology Comment on above: Refill Request Start: 09-01-2024 End: 09-01-2024 Specialty Pharmacy Yi Pace [facility] Comment on above: SPP Oral Oncology/he matology - Medication Refill (Xtandi 40 mg) Start: 08-30-2024 End: 09-03-2024 Patient encounter procedure Jack Pearson MD Work Phone: Radiation Oncology Start: 08-30-2024 End: 09-03-2024 Radiation Oncology Note Jack Pearson MD Work Phone: Radiation Oncology Comment on above: Completion Note Start: 08-30-2024 End: 08-30-2024 ambulatory Jack Pearson MD Work Phone: Radiation Oncology Comment on above: Patient Education Start: 08-27-2024 End: 08-27-2024 ambulatory SILVERIO D OSMEL Facility:[facility] Start: 08-26-2024 End: 08-26-2024 ambulatory JACK PEARSON Facility:[facility] Start: 08-25-2024 End: 08-25-2024 Telephone encounter Tanja INIGUEZ Hematology/Oncology Comment on above: Social Work Services Start: 08-25-2024 End: 08-25-2024 ambulatory SILVERIO D OSMEL Facility:[facility] Start: 08-24-2024 End: 08-24-2024 Patient encounter procedure Jack Pearson MD Work Phone: Radiation Oncology Comment on above: 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) Start: 08-24-2024 End: 08-24-2024 ambulatory SILVERIO D OSMEL Facility:[facility] Start: 08-20-2024 End: 08-20-2024 ambulatory SILVERIO D OSMEL Facility:[facility] Start: 08-19-2024 End: 08-19-2024 ambulatory SILVERIO D OSMEL Facility:[facility] Start: 08-18-2024 End: 08-18-2024 ambulatory SILVERIO D OSMEL Facility:[facility] Start: 08-17-2024 End: 08-17-2024 Patient encounter procedure Jack Pearson MD Work Phone: Radiation Oncology Comment on above: 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) Start: 08-17-2024 End: 08-17-2024 ambulatory SILVERIO D OSMEL Facility:[facility] Start: 08-17-2024 End: 08-21-2024 ambulatory SILVERIO D OSMEL SHUTTLE ROUTE VEHICLE OPERATOR - PET TRAINER Facility:[facility] Start: 08-17-2024 End: 08-21-2024 Outreach Lab SILVERIO D OSMEL SHUTTLE ROUTE VEHICLE OPERATOR - PET TRAINER [facility] Start: 08-16-2024 End: 08-16-2024 ambulatory SILVERIO BOLIVAR Facility:[facility] Start: 08-11-2024 End: 08-17-2024 Patient encounter procedure Jack Pearson MD Work Phone: Radiation Oncology Start: 08-11-2024 End: 08-17-2024 Radiation Oncology Note Jack Pearson MD Work Phone: Radiation Oncology Comment on above: Simulation Note Treatment Planning Start: 08-11-2024 End: 08-11-2024 Nursing evaluation of patient and report Nurse Radt [facility] Work Phone: Radiation Oncology Comment on above: 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) Start: 08-11-2024 End: 08-11-2024 ambulatory SILVERIO BOLIVAR Facility:[facility] Start: 08-10-2024 End: 08-16-2024 Orders Only Jack Pearson MD Work Phone: Radiation Oncology Comment on above: 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) Start: 08-09-2024 End: 08-09-2024 Patient encounter procedure Jack Pearson MD Work Phone: Radiation Oncology Comment on above: Prostate cancer meta static to bone (HCC) Start: 08-09-2024 End: 08-09-2024 ambulatory SIVLERIO BOLIVAR Facility:[facility] Start: 08-06-2024 End: 08-06-2024 Specialty Pharmacy Yi Chin [facility] Comment on above: SPP Oral Oncology/he matology - Medication Refill (Xtandi 40mg) 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) Start: 07-27-2024 ambulatory LUIS MIGUEL Salinas :[facility] Start: 07-02-2024 End: 07-02-2024 ambulatory ROGELIO BEE Facility:[facility] Start: 06-24-2024 End: 06-24-2024 Refill Dayana Shafer Work Phone: Hematology/Oncology Comment on above: Refill Request Start: 06-23-2024 End: 06-23-2024 ambulatory LUIS MIGUEL GUY Facility:[facility] Start: 06-02-2024 End: 09-02-2024 ambulatory SILVERIO BOLIVAR SHUTTLE ROUTE VEHICLE OPERATOR - PET TRAINER Facility:[facility] Start: 06-01-2024 End: 06-01-2024 Specialty Pharmacy Yi Pace [facility] Comment on above: SPP Oral Oncology/he matology - Medication Refill (Xtandi ) Start: 05-27-2024 End: 05-27-2024 ambulatory JULIUS ADAM MD Facility:[facility] Start: 05-27-2024 End: 05-27-2024 Patient encounter procedure JULIUS ADAM MD [facility] Start: 05-13-2024 End: 05-20-2024 ambulatory TAN DE [facility] Start: 05-04-2024 End: 05-04-2024 Telephone encounter Luis Miguel Guy MD Work Phone: Hematology/Oncology Comment on above: Patient Update Start: 04-30-2024 End: 05-13-2024 Evaluation and management of inpatient JULIUS ADAM MD Facility:[facility] Start: 04-29-2024 End: 04-29-2024 ambulatory Yi Pace [facility] Start: 04-29-2024 End: 04-29-2024 Patient encounter procedure Yi Pace [facility] Comment on above: SPP Oral Oncology/he matology - Treatment Referral (Xtandi 40 mg ); Insurance Authorization ([place] ) Start: 04-28-2024 End: 04-29-2024 Telephone encounter Tanja INIGUEZ Hematology/Oncology Comment on above: Xtandi Assistance; Kim Dunaway Payment Info Start: 04-19-2024 End: 04-22-2024 ambulatory SILVERIO BOLIVAR SHUTTLE ROUTE VEHICLE OPERATOR - PET TRAINER Facility:[facility] Start: 04-19-2024 End: 04-19-2024 Emergency department patient visit OSMEL ZORAIDAISAI NO [facility] Start: 04-19-2024 End: 04-19-2024 Patient encounter procedure EVI BAUER SHUTTLE ROUTE VEHICLE OPERATOR-PET TRAINER [facility] Start: 03-31-20[facility] Start: 03-31-2024 End: 03-31-2024 ambulatory [facility] Facility:[facility] Start: 03-29-2024 End: 03-29-2024 Refill Luis Miguel Guy MD Work Phone: Hematology/Oncology Comment on above: Refill Request Start: 03-26-2024 End: 03-26-2024 Telephone encounter Luis Miguel Guy MD Work Phone: Hematology/Oncology Start: 03-09-2024 End: 03-09-2024 ambulatory Silverio Bolivar HAND STEMMER Facility:[facility] Start: 03-02-2024 End: 03-02-2024 Refill Dayana Shafer Work Phone: Hematology/Oncology Comment on above: Refill Request Start: 02-24-2024 End: 02-24-2024 Refill Luis Miguel Guy MD Work Phone: Hematology/Oncology Comment on above: Refill Request Start: 02-19-2024 End: 02-23-2024 ambulatory SILVERIO BOLIVAR SHUTTLE ROUTE VEHICLE OPERATOR - PET TRAINER Facility:[facility] Start: 02-19-2024 End: 02-23-2024 Outreach Lab SILVERIO BOLIVAR SHUTTLE ROUTE VEHICLE OPERATOR - PET TRAINER [facility] Start: 02-18-2024 End: 02-18-2024 Telephone encounter Tanja INIGUEZ Hematology/Oncology Comment on above: 2024 Xtandi Patient Assistance Start: 02-18-2024 End: 02-18-2024 ambulatory Treatment Rm 15 Davin c Wstr Work Phone: Hematology/Oncology Comment on above: Malignant neoplasm o f prostate (HCC) (Primary Dx); Prostate cancer metastatic to bone (HCC) Start: 02-18-2024 End: 02-18-2024 Patient encounter procedure Luis Miguel Guy MD Work Phone: Hematology/Oncology Start: 02-13-2024 End: 02-13-2024 ambulatory LUIS MIGUEL GUY Facility:[facility] Start: 02-03-2024 End: 02-03-2024 Refill Dayana Shafer Work Phone: Hematology/Oncology Comment on above: Refill Request Start: 01-20-2024 End: 01-20-2024 ambulatory SILVERIO CARLSONPKINS SHUTTLE ROUTE VEHICLE OPERATOR - PET TRAINER Facility:[facility] Start: 01-20-2024 End: 01-20-2024 Patient encounter procedure SILVERIO BOLIVAR SHUTTLE ROUTE VEHICLE OPERATOR - PET TRAINER [facility] Start: 01-13-2024 End: 01-13-2024 ambulatory SILVERIO CARLSONPKINS SHUTTLE ROUTE VEHICLE OPERATOR - PET TRAINER Facility:[facility] Start: 01-13-2024 End: 01-13-2024 Patient encounter procedure SILVERIO BOLIVAR SHUTTLE ROUTE VEHICLE OPERATOR - PET TRAINER [facility] Start: 01-08-2024 End: 01-08-2024 ambulatory SILVERIO Mosley OSMEL SHUTTLE ROUTE VEHICLE OPERATOR - PET TRAINER Facility: Start: 01-08-2024 End: 01-08-2024 Patient encounter procedure SILVERIO BOLIVAR SHUTTLE ROUTE VEHICLE OPERATOR - PET TRAINER [facility] Start: 12-02-2023 End: 12-02-2023 Telephone encounter Support Services [facility] Hematology Oncology Comment on above: Financial Navigation Start: 12-01-2023 End: 12-01-2023 Telephone encounter Tanja INIGUEZ Hematology/Oncology Comment on above: Social Work Services Start: 11-26-2023 End: 11-26-2023 ambulatory Luis Miguel Guy MD Work Phone: Hematology/Oncology Comment on above: Malignant neoplasm o f prostate (HCC) (Primary Dx); Prostate cancer metastatic to bone (HCC) Start: 11-26-2023 End: 11-26-2023 Patient encounter procedure Luis Miguel Guy MD Work Phone: Hematology/Oncology Start: 11-17-2023 End: 11-17-2023 Refill Luis Miguel Guy MD Work Phone: Hematology/Oncology Comment on above: Refill Request Start: 10-23-2023 Refill Luis Miguel yoon MD Work Phone: Hematology/Oncology Comment on above: Refill Request Start: 10-10-2023 Telephone encounter Prabha Cary RN He matology/Oncology Comment on above: Housekeeper Child Care - O ther (Question ) Start: 09-22-2023 Refill Luis Miguel yoon MD Work Phone: Hematology/Oncology Comment on above: Refill Request Start: 09-08-2023 Telephone encounter Financial Navigator Davin Work Phone: Financial Services Comment on above: Benefits Investigati on Start: 09-03-2023 End: 09-03-2023 ambulatory Treatment Rm 13 Davin [facility] Work Phone: Hematology/Oncology Comment on above: Malignant neoplasm o f prostate (HCC) (Primary Dx); Prostate cancer metastatic to bone (HCC) 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) Start: 09-03-2023 End: 09-03-2023 Patient encounter procedure Luis Miguel Guy MD Work Phone: Hematology/Oncology Start: 08-28-2023 End: 09-01-2023 ambulatory SILVERIO BOLIVAR SHUTTLE ROUTE VEHICLE OPERATOR - PET TRAINER Facility:[facility] Start: 08-28-2023 End: 09-01-2023 Outreach Lab SILVERIO BOLIVAR SHUTTLE ROUTE VEHICLE OPERATOR - PET TRAINER [facility] Start: 08-25-2023 Refill Vianney clark SHUTTLE ROUTE VEHICLE OPERATOR.PET TRAINER Work Phone: Hematology/Oncology Comment on above: Refill Request Start: 07-28-2023 Refill Luis Miguel yoon MD Work Phone: Hematology/Oncology Comment on above: Refill Request Start: 06-29-2023 Refill Luis Miguel yoon MD Work Phone: Hematology/Oncology Comment on above: Refill Request Start: 06-10-2023 End: 06-10-2023 ambulatory Treatment Rm 13 Davin [facility] Work Phone: Hematology/Oncology Comment on above: 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); Malignant neoplasm of prostate (HCC) 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) Start: 06-10-2023 End: 06-10-2023 Patient encounter procedure Luis Miguel Guy MD Work Phone: [facility] Start: 02-18-2023 Telephone encounter Meagan diaz RN Work Phone: Hematology/Oncology Comment on above: Care Coordination (O RAL ANTI-CANCER AGENTS FOLLOW-UP PHONE CALL) Start: 02-11-2023 Telephone encounter Meagan diaz RN Work Phone: Hematology/Oncology Comment on above: Care Coordination (X tandi) Start: 02-06-2023 End: 02-10-2023 ambulatory SILVERIO BOLIVAR SHUTTLE ROUTE VEHICLE OPERATOR - PET TRAINER Facility:[facility] Start: 02-06-2023 End: 02-10-2023 Outreach Lab SILVERIO BOLIVAR SHUTTLE ROUTE VEHICLE OPERATOR - PET TRAINER [facility] Start: 01-23-2023 Telephone encounter Meagan diaz RN Work Phone: Hematology/Oncology Comment on above: Care Coordination (X tandi) Start: 01-22-2023 Non-patient / Non-visit HAND STEMMER-C Rosalina Bolivar HAND STEMMER Work Phone: [facility] Start: 01-21-2023 End: 01-21-2023 ambulatory HAND STEMMER-C Silverio Bolivar HAND STEMMER Work Phone: [facility] Work Phone: Start: 01-21-2023 End: 01-21-2023 Patient encounter procedure HAND STEMMER-Yelena Bolivar HAND STEMMER Work Phone: [facility]-Pulmonary Services/Neurology Work Phone: Start: 01-11-2023 Non-patient / Non-visit HAND STEMMER-C Rosalina Bolivar NP Work Phone: [facility] Start: 01-10-2023 Telephone encounter Luis Miguel shearer MD Work Phone: Hematology/Oncology Comment on above: Chemotherapy Treatme nt Start: 01-10-2023 End: 01-10-2023 ambulatory HAND STEMMER-Yelena Bolivar HAND STEMMER Work Phone: [facility] Work Phone: Start: 01-10-2023 End: 01-10-2023 Patient encounter procedure HAND STEMMER-Yelena Bolivar HAND STEMMER Work Phone: [facility]-Pulmonary Services/Neurology Work Phone: Start: 01-08-2023 Telephone encounter Financial Navigator Davin Work Phone: Hematology/Oncology Comment on above: Follow Up Start: 01-07-2023 End: 01-07-2023 Patient encounter procedure HAND STEMMER-Yelena Bolivar HAND STEMMER Work Phone: [facility]-Pulmonary Medicine [facility] Work Phone: Start: 12-30-2022 Telephone encounter Financial Navigator Davin Work Phone: Financial Services Comment on above: Benefits Investigati on Start: 12-27-2022 Telephone encounter Tanja INIGUEZ Hematology/Oncology Comment on above: Medication Question Start: 12-26-2022 Telephone encounter Tanja INIGUEZ Hematology/Oncology Comment on above: Xtandi Assistance Start: 12-24-2022 End: 12-24-2022 ambulatory Treatment Rm 13 Davin [facility] Work Phone: Hematology/Oncology Comment on above: Malignant neoplasm o f prostate (HCC) (Primary Dx); Prostate cancer metastatic to bone (HCC) Malignant neoplasm o f prostate (HCC) (Primary Dx) Start: 12-24-2022 End: 12-24-2022 Patient encounter procedure Evette Armstrong [facility] Comment on above: SPP Oral Oncology/he matology - Treatment Referral (Xtandi); Insurance Authorization ([place]ending [place]) Start: 11-26-2022 Telephone encounter Tanja INIGUEZ Hematology/Oncology Comment on above: Social Work Services Medication Request Start: 10-30-2022 End: 10-30-2022 ambulatory SILVERIO CARLSONPKINS SHUTTLE ROUTE VEHICLE OPERATOR - PET TRAINER Facility:[facility] Start: 10-30-2022 End: 10-30-2022 Patient encounter procedure SILVERIO CARLSONPKINS SHUTTLE ROUTE VEHICLE OPERATOR - PET TRAINER [facility] Start: 10-28-2022 End: 10-28-2022 ambulatory SILVERIO BOLIVAR SHUTTLE ROUTE VEHICLE OPERATOR - PET TRAINER Facility:[facility] Start: 10-28-2022 End: 10-28-2022 Patient encounter procedure SILVERIO BOLIVAR SHUTTLE ROUTE VEHICLE OPERATOR - PET TRAINER [facility] Start: 07-09-2022 Telephone encounter Jeni Gtz MD Work Phone: Hematology/Oncology Comment on above: Future Appointment Start: 07-09-2022 End: 07-09-2022 ambulatory Treatment Rm 13 Davin [facility] Work Phone: Hematology/Oncology Comment on above: Malignant neoplasm o f prostate (HCC) (Primary Dx); Prostate cancer metastatic to bone (HCC) Start: 06-27-2022 Refill Vianney clark SHUTTLE ROUTE VEHICLE OPERATOR.PET TRAINER Work Phone: Hematology/Oncology Comment on above: Refill Request Start: 06-04-2022 Telephone encounter Rogelio Bee MD Work Phone: Hematology/Oncology Comment on above: Appointment (RESCHED ULE ) Start: 05-09-2022 Telephone encounter Vianney rainey SHUTTLE ROUTE VEHICLE OPERATOR.PET TRAINER Work Phone: Hematology/Oncology Comment on above: Insurance Authorizat ion ([employer]) Start: 05-08-2022 Telephone encounter Tanja INIGUEZ Hematology/Oncology Comment on above: Social Work Services Start: 04-18-2022 Telephone encounter Vianney rainey SHUTTLE ROUTE VEHICLE OPERATOR.PET TRAINER Work Phone: Hematology/Oncology Comment on above: Results Start: 04-17-2022 End: 04-17-2022 Subsequent hospital visit by physician [facility] Work Phone: Radiology Comment on above: Malignant neoplasm o f prostate (HCC) [C61] Start: 04-16-2022 End: 04-16-2022 ambulatory Treatment Rm 13 Davin [facility] Work Phone: Hematology/Oncology Comment on above: 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); Malignant neoplasm of prostate (HCC) Malignant neoplasm o f prostate (HCC) (Primary Dx); Bone metastases (HCC); Right upper quadrant abdominal pain; Elevated liver enzymes Start: 04-16-2022 End: 04-16-2022 Patient encounter procedure Vianney Garcia SHUTTLE ROUTE VEHICLE OPERATOR.PET TRAINER Work Phone: [facility] Start: 04-15-2022 Telephone encounter Vianney rainey SHUTTLE ROUTE VEHICLE OPERATOR.PET TRAINER Work Phone: Hematology/Oncology Comment on above: repeat orders Start: 03-07-2022 Telephone encounter Rogelio Bee MD Work Phone: Hematology/Oncology Comment on above: Results; Patient Upd ate Start: 03-05-2022 Refill Rogelio Bee MD Work Phone: Hematology/Oncology Comment on above: Refill Request Start: 02-22-2022 Telephone encounter Meagan diaz RN Work Phone: Hematology/Oncology Comment on above: Patient Update (Call from [facility]) Start: 02-22-2022 End: 02-22-2022 ambulatory [facility] Work Phone: Start: 02-22-2022 End: 02-22-2022 Patient encounter procedure [facility]-Radiology, [facility] Start: 02-05-2022 Telephone encounter Rogelio Bee MD Work Phone: Hematology/Oncology Comment on above: Patient Question Start: 01-22-2022 Telephone encounter Rogelio Bee MD Work Phone: Hematology/Oncology Comment on above: Orders Start: 01-22-2022 End: 01-22-2022 ambulatory Treatment Rm [facility] Work Phone: Hematology/Oncology Comment on above: Bone metastases (HCC ) (Primary Dx); Prostate cancer metastatic to bone (HCC); Malignant neoplasm of prostate (HCC) Start: 01-22-2022 End: 01-22-2022 ambulatory Rogelio Bee MD Work Phone: Hematology/Oncology Comment on above: Malignant neoplasm o f prostate (HCC) (Primary Dx); Bone metastases (HCC) Start: 01-22-2022 End: 01-22-2022 Patient encounter procedure Rogelio Bee MD Work Phone: [facility] Start: 01-17-2022 End: 01-21-2022 Outreach Lab SILVERIO BOLIVAR SHUTTLE ROUTE VEHICLE OPERATOR [facility] Start: 11-26-2021 Refill Colton Contreras Work Phone: Hematology/Oncology Comment on above: Refill Request Start: 10-30-2021 End: 10-30-2021 ambulatory Treatment 11 [facility] [employer] Work Phone: Hematology/Oncology Comment on above: Malignant neoplasm o f prostate (HCC) (Primary Dx); Prostate cancer metastatic to bone (HCC) Malignant neoplasm o f prostate (HCC) (Primary Dx); Bone metastases (HCC) Start: 10-30-2021 End: 10-30-2021 Patient encounter procedure Rogelio Bee MD Work Phone: [facility] Start: 09-30-2021 Refill Rogelio Bee MD Work Phone: Hematology/Oncology Comment on above: Refill Request Start: 08-07-2021 End: 08-07-2021 ambulatory Treatment Rm [facility] Work Phone: Hematology/Oncology Comment on above: Malignant neoplasm o f prostate (HCC) (Primary Dx); Prostate cancer metastatic to bone (HCC) Bone metastases (HCC ) (Primary Dx); Prostate cancer metastatic to bone (HCC) Start: 08-07-2021 End: 08-07-2021 Patient encounter procedure Rogelio Bee MD Work Phone: [place] [facility] Start: 07-12-2021 End: 07-16-2021 Outreach Lab SILVERIO Mosley OSMEL SHUTTLE ROUTE VEHICLE OPERATOR - PET TRAINER [facility] Start: 01-12-2021 End: 01-16-2021 Outreach Lab SILVERIO Mosley OSMEL SHUTTLE ROUTE VEHICLE OPERATOR - PET TRAINER [facility] Procedures Date Procedure Procedure Detail Performing Clinician Start: 11-29-2024 CT of chest Silverio gayle HAND STEMMER-C Work Phone: Start: 09-24-2024 Follow-up visit Follow Up LUIS MIGUEL FRANKS Start: 04-30-2024 Cardiac catheterization JULIUS ADAM MD Start: 04-17-2022 Us abdominal real ti me w/image limited Vianney Garcia SHUTTLE ROUTE VEHICLE OPERATOR.PET TRAINER Work Phone: Start: 02-22-2022 Plain chest X-ray Start: 07-05-2020 Lipid 1996 panel - S avelina or Plasma Tanja INIGUEZ Start: 10-22-2018 Adult depression scr eening assessment Treatment Wstr Work Phone: Abdominal aortic ane urysm (disorder) JULIUS ADAM MD Urethral structure ( body structure) JULIUS ADAM MD Comment on above: Pt states urologist cleaned out his urethra Plan of Treatment Date Care Activity Detail Author Start: 09-18-2027 Diabetes Screening Diabetes Screenin [facility] Start: 06-24-2027 Diabetes Screening Diabetes Screenin g [facility] Start: 02-12-2027 Diabetes Screening Diabetes Screenin g [facility] Start: 11-19-2026 Diabetes Screening Diabetes Screenin g [facility] Start: 08-27-2026 Diabetes Screening Diabetes Screenin g [facility] Start: 06-04-2026 Diabetes Screening Diabetes Screenin g [facility] Start: 12-23-2025 Diabetes Screening Diabetes Screenin g [facility] Start: 09-30-2025 Diabetes Screening Diabetes Screenin g [facility] Start: 07-08-2025 DIABETES SCREEN DIABETES SCREEN [facility] Start: 07-05-2025 Lipid 1996 panel - Serum or Plasma Lipid Screening [facility] Start: 07-05-2025 Lipid panel Lipid Screening [facility] Start: 07-05-2025 LIPID SCREEN LIPID SCREEN [facility] Start: 04-22-2025 DIABETES SCREEN DIABETES SCREEN [facility] Start: 04-16-2025 DIABETES SCREEN DIABETES SCREEN [facility] Start: 04-15-2025 DIABETES SCREEN DIABETES SCREEN [facility] Start: 01-21-2025 DIABETES SCREEN DIABETES SCREEN [facility] Start: 01-18-2025 Walking distance 6 minutes [facility] Start: 01-17-2025 Measurement of respiratory function [facility] Start: 12-17-2024 End: 12-17-2024 ambulatory Hematology/Oncology Comment on above: OV/LAB TO DAY* 2nd Start: 12-10-2024 End: 12-10-2024 ambulatory 12/10/2024 11:30 AM EDT Results Only [facility] [address] [place] [address] (SO)PSA/CMP(S)* [facility] Comment on above: (SO)PSA/CMP(S)* Start: 11-30-2024 End: 11-30-2024 Specialty Pharmacy 11/30/2024 9:00 AM EDT Specialty Pharmacy [facility] [address] [place] [address] [address] [place] [address] Pharmacist, [facility] [address] [place] [address] Refill - Xtandi [30DS] PA exp 03/16/25 [facility] Comment on above: Refill - Xtandi [30D S] PA exp 03/16/25 Start: 11-25-2024 BP Controlled (<130/80) BP Controlle d (<130/80) [facility] Start: 11-08-2024 Influenza vaccination C [facility] Start: 11-01-2024 End: 11-01-2024 Specialty Pharmacy 11/01/2024 7:15 AM EDT Specialty Pharmacy [facility] [address] [place] [address] [address] Pharmacist, [facility] [address] [place] [address] [place] [address] Refill - Xtandi [30DS] PA exp 03/16/25 [facility] Comment on above: Refill - Xtandi [30D S] PA exp 03/16/25 Start: 10-29-2024 DIABETES SCREEN DIABETES SCREEN [facility] Start: 10-01-2024 End: 10-01-2024 Specialty Pharmacy 10/01/2024 7:00 AM EDT Specialty Pharmacy [facility] [address] [place] [address] Pharmacist, [facility] [address] [place] [address] [place] [address] Refill - Xtandi [30DS] [facility] Comment on above: Refill - Xtandi [30D S] Start: 09-27-2024 End: 09-27-2024 ambulatory 09/27/2024 11:30 AM EDT [facility]cology [address] [place] [address] Jack Pearson MD [address] [place] [address] 4 week phone call Radiation Oncology Comment on above: 4 week phone call Start: 09-24-2024 End: 09-24-2024 ambulatory Hematology/Oncology Comment on above: OV/LAB TO DAY* 2nd Start: 09-17-2024 End: 09-17-2024 ambulatory 09/17/2024 11:30 AM EDT Results Only [facility] [address] [place] [address] (SO)PSA/CMP(S)* [facility] Comment on above: (SO)PSA/CMP(S)* Start: 09-02-2024 BP Controlled (<130/80) BP Controlle d (<130/80) [facility] Start: 09-01-2024 End: 09-01-2024 Specialty Pharmacy 09/01/2024 7:15 AM EDT Specialty Pharmacy [facility] [id number] [place] [address] Pharmacist, [facility] 1 [facility] [place] [address] Refill - Xtandi [30DS] [facility] Comment on above: Refill - Xtandi [30D S] Start: 08-30-2024 End: 08-30-2024 Patient encounter procedure 08/30/2024 11:30 AM EDT Appointment Radiation Oncology [address] [place] [address] Location: [email or web address] Comment on above: Location: [email or web address] Start: 08-27-2024 End: 08-27-2024 Patient encounter procedure 08/27/2024 1:45 PM EDT Appointment Radiation Oncology [address] [place] [address] Location: [email or web address] Comment on above: Location: [facility] Start: 08-26-2024 End: 08-26-2024 Patient encounter procedure 08/26/2024 1:45 PM EDT Appointment Rad[facility] Oncology [address] [place] [address] Location: [email or web address] Comment on above: Location: [facility] Start: 08-25-2024 End: 08-25-2024 Patient encounter procedure 08/25/2024 1:45 PM EDT Appointment Radiation Oncology [address] [place] [address] Location: [email or web address] Comment on above: Location: [facility] Start: 08-24-2024 End: 08-24-2024 Patient encounter procedure Radiation Oncology Comment on above: Location: [facility] Location: W-ON TREAT MENT VISIT Start: 08-23-2024 End: 08-23-2024 Patient encounter procedure 08/23/2024 1:45 PM EDT Appointment Radiation Oncology [address] [place], [place] [address] Location: [email or web address] Comment on above: Location: [facility] Start: 08-20-2024 End: 08-20-2024 Patient encounter procedure 08/20/2024 1:45 PM EDT Appointment Radiation Oncology [address] [place] [address] Location: [email or web address] Comment on above: Location: [facility] Start: 08-19-2024 End: 08-19-2024 Patient encounter procedure 08/19/2024 1:45 PM EDT Appointment Radiation Oncology [address] [place], [place] [address] Location: [email or web address] Comment on above: Location: [facility] Start: 08-18-2024 End: 08-18-2024 Patient encounter procedure 08/18/2024 1:45 PM EDT Appointment Radiation Oncology [address] [place] [address] Location: [email or web address] Comment on above: Location: [facility] Start: 08-17-2024 End: 08-17-2024 Patient encounter procedure Radiation Oncology Comment on above: Location: [facility] Location: W-ON TREAT MENT VISIT Start: 08-16-2024 End: 08-16-2024 Patient encounter procedure 08/16/2024 2:15 PM EDT Appointment Radiation Oncology [address] [place] [address] Jack Pearson MD [address] [place] [address] Location: [email or web address] Comment on above: Location: [email or web address] Start: 08-11-2024 End: 08-11-2024 Patient encounter procedure 08/11/2024 11:30 AM EDT Office Visit Radiation Oncology [address] [place] [address] Jack Pearson MD [address] [place] [address] 2 area - sim talk at 11 Radiation Oncology Comment on above: 2 area - sim talk at 11 Start: 08-11-2024 End: 08-11-2024 Nursing evaluation of patient and report 08/11/2024 11:00 AM EDT Nurse Visit Radiation Oncology [address] [place] [address] Wstr, Nurse Radt [facility] [address] [place] [address] sim talk Radiation Oncology Comment on above: sim talk Start: 08-09-2024 End: 08-09-2024 Patient encounter procedure 08/09/2024 9:30 AM EDT Office Visit Radiation Oncology [address] [place] [address] Jack Pearson MD [address] [place] [address] Prostate cancer metastatic to bone (HCC) [C61, C79.51] Radiation Oncology Comment on above: Prostate cancer meta static to bone (HCC) [C61, C79.51] Start: 08-04-2024 End: 08-04-2024 ambulatory Hematology/Oncology Comment on above: OV/LAB 07/28/ TO DAY* 2nd Start: 08-03-2024 DIABETES SCREEN DIABETES SCREEN [facility] Start: 07-28-2024 End: 07-28-2024 ambulatory 07/28/2024 10:30 AM EDT Results Only [facility] [address] [place] [address] PSA/CMP* [facility] Comment on above: PSA/CMP* Start: 07-02-2024 End: 07-02-2024 Specialty Pharmacy [facility] Comment on above: Refill - Xtandi (30D S) OV/LAB 06/23/CHEMO TO DAY* 2nd Start: 06-09-2024 BP Controlled (<130/80) BP Controlle d (<130/80) [facility] Start: 06-03-2024 End: 06-03-2024 Specialty Pharmacy 06/03/2024 7:30 AM EDT Specialty Pharmacy [facility] [address] [place] [address] Pharmacist, [facility] [address] [place] [address] Refill - Xtandi (30DS) [facility] Comment on above: Refill - Xtandi (30D S) Start: 06-01-2024 End: 06-01-2024 Specialty Pharmacy 06/01/2024 7:00 AM EDT Specialty Pharmacy [facility] [address] [place] [address] [place] [address] Pharmacist, [facility] [address] [place] [address] Refill - Xtandi (30DS) [facility] Comment on above: Refill - Xtandi (30D S) Start: 05-12-2024 End: 05-12-2024 ambulatory Hematology/Oncology Comment on above: OV/LAB 05/04/CHEMO TO DAY* 2nd OV/LAB 05/06/CHEMO TO DAY* Start: 05-06-2024 End: 05-06-2024 ambulatory 05/06/2024 10:30 AM EST Results Only [facility] [address] [place] [address] PSA/CMP* [facility] Comment on above: PSA/CMP* Start: 05-04-2024 End: 05-04-2024 ambulatory 05/04/2024 10:00 AM EST Results Only [facility] [address] [place] [address] PSA/CMP* [facility] Comment on above: PSA/CMP* Start: 03-10-2024 Advance Directive Discussion Advance Directive Discussion [facility] Start: 03-10-2024 Medicare Advantage Annual Wellness Visit Medicare Advantage Annual Wellness Visit [facility] Start: 02-18-2024 End: 02-18-2024 ambulatory Hematology/Oncology Comment on above: OV/LAB 02/10/CHEMO TO DAY* 2nd OV/LAB 02/09/CHEMO TO DAY* Start: 02-11-2024 End: 02-11-2024 ambulatory 02/11/2024 10:00 AM EST Results Only [facility] [address] [place] [address] PSA/CMP* [facility] Comment on above: PSA/CMP* Start: 02-10-2024 End: 02-10-2024 ambulatory 02/10/2024 10:00 AM EST Results Only [place] [facility] [address] [place] [address] PSA/CMP* [facility] Comment on above: PSA/CMP* Start: 12-25-2023 BP Controlled (<130/80) BP Controlle d (<130/80) [facility] Start: 11-26-2023 End: 11-26-2023 ambulatory Hematology/Oncology Comment on above: OV/LAB 11/18/CHEMO TO DAY* Q3MO ZOMETA/Q3MO LUP JOSE/LAB 11/18/OV EARLY/AUTH EXP ?* 2nd Start: 11-20-2023 End: 11-20-2023 ambulatory 11/20/2023 10:00 AM EDT Results Only [facility] [address] [place] [address] PSA/CMP* [facility] Comment on above: PSA/CMP* Start: 11-19-2023 End: 11-19-2023 ambulatory 11/19/2023 10:00 AM EDT Results Only [facility] [address] [place] [address] PSA/CMP* [facility] Comment on above: PSA/CMP* Start: 11-09-2023 Covid-19 Vaccine ( season) Covid-19 Vaccine ( season) [facility] Start: 11-09-2023 Covid-19 Vaccine () Covid-19 Vaccine () [facility] Start: 11-09-2023 Covid-19 Vaccine () Covid-19 Vaccine () [facility] Start: 11-09-2023 Influenza vaccination C [facility] Start: 10-01-2023 BP Controlled (<130/80) BP Controlle d (<130/80) [facility] Start: 09-03-2023 End: 09-03-2023 ambulatory Hematology/Oncology Comment on above: OV/LAB 08/27/CHEMO TO DAY* Q3MO ZOMETA/Q3MO LUP JOSE/LAB 08/27/OV LUDWIN/AUTH EXP 10/01/23* Q3MO ZOMETA/Q3MO LUP JOSE/LAB 08/27/OV EARLY/AUTH EXP 10/01/23* Start: 08-28-2023 End: 08-28-2023 ambulatory 08/28/2023 10:00 AM EDT Results Only [facility] [address] [place] [address] PSA/CMP* [facility] Comment on above: PSA/CMP* Start: 03-10-2023 Advance Directive Discussion Advance Directive Discussion [facility] Start: 03-10-2023 Behavioral Health Screening Behavioral Health Screening [facility] Start: 03-10-2023 Depression Assessment Depression Ass essment [facility] Start: 03-06-2023 Screening for malign ant neoplasm of lung Lung Cancer Screening [facility] Start: 02-26-2023 End: 05-28-2023 Prostate specific Ag [Mass/volume] in Serum or Plasma PSA/PROSTSPECAG DIAG Lab Routine Malignant neoplasm of prostate (HCC) Expected: 02/26/2023 (Approximate), Expires: 05/28/2023 [facility] Work Phone: Comment on above: Expected: 02/26/2023 (Approximate), Expires: 05/28/2023 Start: 11-08-2022 Covid-19 Vaccine (2022- season) Covid-19 Vaccine (2022- season) [facility] Start: 11-08-2022 Influenza vaccination C [facility] Start: 04-19-2022 End: 06-19-2022 Comprehensive metabolic 2000 panel - Serum or Plasma COMP METABOLIC PANEL Lab STAT Malignant neoplasm of prostate (HCC) Bone metastases (HCC) Elevated liver function tests Expected: 04/19/2022 (Approximate), Expires: 06/19/2022 [facility] Work Phone: Comment on above: Expected: 04/19/2022 (Approximate), Expires: 06/19/2022 Start: 04-16-2022 End: 06-16-2022 Comprehensive metabolic 2000 panel - Serum or Plasma COMP METABOLIC PANEL Lab STAT Malignant neoplasm of prostate (HCC) Elevated LFTs Expected: 04/16/2022, Expires: 06/16/2022 [facility] Work Phone: Comment on above: Expected: 04/16/2022 , Expires: 06/16/2022 Start: 03-10-2022 ADVANCE DIRECTIVE DISCUSSION ADVANCE DIRECTIVE DISCUSSION [facility] Start: 03-10-2022 DEPRESSION ASSESSMENT DEPRESSION ASS ESSMENT [facility] Start: 02-16-2022 Influenza vaccination LUNG CANCER SC REENING [facility] Start: 11-08-2021 Influenza vaccination [facility] Start: 03-10-2021 ADVANCE DIRECTIVE DISCUSSION ADVANCE DIRECTIVE DISCUSSION [facility] Start: 03-10-2021 DEPRESSION ASSESSMENT DEPRESSION ASS ESSMENT [facility] Start: 09-26-2020 Covid-19 Vaccine (2 - Mixed Product series) Covid-19 Vaccine (2 - Mixed Product series) [facility] Start: 08-29-2020 COVID-19 VACCINE (2 - Mixed Product risk series) COVID-19 VACCINE (2 - Mixed Product risk series) [facility] Start: 08-29-2020 COVID-19 VACCINE (2 - Mixed Product series) COVID-19 VACCINE (2 - Mixed Product series) [facility] Start: 10-23-2019 Adult depression screening assessment DEPRESSION SCREENING [facility] Start: 2011 RSV Vaccine (1 - 1-d ose 60+ series) RSV Vaccine (1 - 1-dose 60+ series) [facility] Start: 2011 RSV Vaccine (1 - Ris k 60-74 years 1-dose series) RSV Vaccine (1 - Risk 60-74 years 1-dose series) [facility] Start: 2001 SHINGRIX VACCINE (1 of 2) SHINGRIX VACCINE (1 of 2) [facility] Start: 02-29-1996 COLOGUARD (FIT-DNA) COLOGUARD (FIT-D NA) [facility] Start: 02-29-1996 Colonoscopy COLONOSCOPY [facility] Start: 02-29-1996 COLORECTAL CANCER SCREENING COLORECTAL CANCER SCREENING [facility] Start: 02-29-[address] COLONOGRAPHY [facility] Start: 02-29-1996 FECAL OCCULT BLOOD FECAL OCCULT BLOO D [facility] Start: 02-29-1996 Screening for malign ant neoplasm of colon [facility] Start: 02-29-1996 SIGMOIDOSCOPY SIGMOIDOSCOPY [facility] Start: 1981 Zoledronic acid therapy ALPHA- 1 ANTITRYPSIN DEFICIENCY SCREENING [facility] Start: 1970 Pneumococcal Vaccine : 50+ (1 of 2 - PCV) Pneumococcal Vaccine: 50+ (1 of 2 - PCV) [facility] Start: 1970 SHINGRIX VACCINE (1 of 2) SHINGRIX VACCINE (1 of 2) [facility] Start: 1970 Urine microalbumin profile [facility] Start: 1969 ANNUAL PCP TEAM TRANSPORTATION SECURITY OFFICER AMBER DISEASE VISIT ANNUAL PCP TEAM CHRONIC DISEASE VISIT [facility] Start: 1969 Anxiety Screening Anxiety Screening [facility] Start: 1969 BP CONTROLLED (<130/80) BP CONTROLLE D (<130/80) [facility] Start: 1969 Depression Screening Depression Scre ening [facility] Start: 1969 HEPATITIS C SCREENING HEPATITIS C [facility] Start: 1969 Hepatitis C screening Hepatitis C [facility] Start: 1969 SPIROMETRY SPIROMETRY [facility] Start: 1957 Pneumococcal Vaccine : 65+ (1 - PCV) Pneumococcal Vaccine: 65+ (1 - PCV) [facility] Start: 1957 Pneumococcal Vaccine : 65+ (1 of 2 - PCV) Pneumococcal Vaccine: 65+ (1 of 2 - PCV) [facility] Start: 1957 PNEUMOCOCCAL: 65+ (1 - PCV) PNEUMOCOCCAL: 65+ (1 - PCV) [facility] CT Guidance for radiation treatment of Unspecified body region CT SIM PLANNING RADIATION ONCOLOGY Radiology Routine Prostate cancer metastatic to bone (HCC) Ordered: 08/16/2024 [facility] Work Phone: Comment on above: Ordered: 08/16/2024 End: 03-24-2023 Ct thorax w/o contrast material CT CHEST WO IVCON Radiology Routine Bone metastases (HCC) Malignant neoplasm of prostate (HCC) 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) 1 Occurrences starting 02/22/2022 until 03/24/2023 [facility] Work Phone: Comment on above: 1 Occurrences starti ng 02/22/2022 until 03/24/2023 Exercise tolerance test [facility] Patient referral [facility] Work Phone: End: 05-16-2023 Us abdominal real time w/image limited US ABD RT UPPER QUADRANT Radiology Routine Malignant neoplasm of prostate (HCC) Bone metastases (HCC) Right upper quadrant abdominal pain Elevated liver enzymes 1 Occurrences starting 04/16/2022 until 05/16/2023 [facility] Work Phone: Comment on above: 1 Occurrences starti ng 04/16/2022 until 05/16/2023 [facility] Immunizations Immunization Date Immunization Notes Care Provider Yesenia cooper 08-01-2020 COVID-19 vaccine (UNSPECIFIED) Treatment Wstr Work Phone: [facility] 08-01-2020 SARS-CoV-2 (COVID-19 ) Ad26 vaccine, recombinant SILVERIO BOLIVAR SHUTTLE ROUTE VEHICLE OPERATOR - PET TRAINER [facility] 01-14-2019 influenza virus vaccine, unspecified formulation SIVLERIO CARLSONPKINS SHUTTLE ROUTE VEHICLE OPERATOR - PET TRAINER [facility] 01-14-2019 influenza, high dose seasonal, preservative-free Treatment Wstr Work Phone: [facility] Payers Date Payer Category Payer Medicare [id number] 2024 Self-pay [id number] 2024 Private Health Insurance [id number] 2017 Medicare (Managed Care) [employer] H[employer] Member Subscriber Plan / Payer (Effective 2017-Present) Name: Salo Nagy Relation to Subscriber: Self Name: Salo Nagy Payer ID: [id number] (NAIC) Group ID: [id number] Type: HMO Address: [address] [place] [id number] 2017 Unknown MANNY ROTHMAN S AND BLUE SHIELD ANTHNILSA MEDIDUONGUE O [id number] 2017-Present [phone] [address] [place] [address] [facility] [id number] 2017 Unknown [id number] [id number] 2017 Unknown [id number] 1951 Unknown [id number] 2.16.840.1.033679.3.579. 2. 1951 Unknown [id number] 2.16.840.1.809127.3.579. 2. 1951 Unknown [id number] 2.16.840.1.894467.3.579. 2. 1951 Unknown [id number] 2.16.840.1.357531.3.579. 2. 1951 Unknown [id number] 2.16.840.1.815740.3.579. 2. 1951 Unknown [id number] 2.16.840.1.616990.3.579. 2. 1951 Unknown [id number] 2.16.840.1.780419.3.579. 2. 1951 Unknown [id number] 2.16.840.1.428458.3.579. 2. 1951 Unknown [id number] 2.16.840.1.013809.3.579. 2. 1951 Unknown [id number] 2.16.840.1.334692.3.579. 2. 1951 Unknown [id number] 2.16.840.1.678146.3.579. 2. 1951 Unknown [id number] 2.16.840.1.657260.3.579. 2. 1951 Unknown [id number] 2.16.840.1.050232.3.579. 2. 1951 Unknown [id number] 2.16.840.1.942302.3.579. 2. 1951 Unknown [id number] 2.16.840.1.466429.3.579. 2. 1951 Unknown [id number] 2.16.840.1.470137.3.579. 2.627 1951 Unknown [id number] 2.16.840.1.716583.3.579. 2.651 1950 Unknown [id number] 2.16.840.1.337022.3.579. 2.651 Unknown [id number] 2.16.840.1.273086.3.579. 2.462 Unknown [id number] 2.16.840.1.746152.3.579. 2.462 Unknown [id number] Unknown [id number] [id number] Unknown [id number] [id number] Unknown [id number] [id number] Unknown [id number] [id number] Unknown [id number] [id number] Unknown [id number] [id number] Social History Date Type Detail Facility Start: 12-24-2019 End: 05-14-2023 Ex-smoker (finding) [facility] Comment on above: No smoke exposure Start: 1950 Sex Assigned At Male A [facility] Start: 04-18-1974 End: 04-18-2019 History of tobacco use Current smoker [facility] Start: 04-18-1974 End: 04-18-2019 History of tobacco use Cigarette Smoker [facility] Start: 09-24-2019 End: 09-30-2022 Cigarettes smoked current (pack per day) - Reported 1 [facility] Start: 09-24-2019 Tobacco use and exposure Smoke less tobacco non-user [facility] Start: 08-07-2021 End: 09-24-2024 Alcohol intake Lifetime non-drinker (finding) [facility] Start: 12-17-2019 History SDOH Alcohol Frequency 1 [facility] Start: 1950 Sex Assigned At Not on file [facility] Start: 01-12-2022 End: 01-22-2022 Exposure to SARS-CoV-2 (event) Not sure [facility] Start: 07-30-2018 End: 01-07-2023 Tobacco smoking status MNIS Unknown if ever smoked [facility] Start: 12-17-2019 End: 09-30-2022 Alcohol Use Disorder Identification Test - Consumption [AUDIT-C] [facility] How often to you hav e a drink containing alcohol? Never [facility] Start: 07-13-2018 Average Number of Drinks Not on file [facility] Sexual Orientation Matt Jerry viry [facility] Start: 05-29-2018 Sex Male (finding) [facility] Medical Equipment Procedure Code Equipment Code Equipment Origin al Text Equipment Identifier Dates [place] Exclu rain 12mm 12cm Endovascular Contralateral Leg - [id number] Start: 10-29-2019 [place] Exclu rain 12mm 10cm Endovascular Contralateral Leg - [id number] Start: 10-29-2019 [place] Exclu rain 12mm 14cm Endovascular Contralateral Leg - [id number] Start: 10-29-2019 [place] Exclu rain C3 26mm 12mm 22-23mm 10-11mm Nitinol Eptfe 18cm - [id number] Start: 10-29-2019 Functional Status Date Assessment Result Facility 04-19-2024 Functional Status Independent [place] [facility] 04-19-2024 Functional Status ID band on, Allergy Band on, Call device within reach, Bed in low position, Wheels locked, Upper/Half-Length side-rails up, Visitor at bedside, Safety level maintained [facility] Mental Status Date Assessment Result Facility 04-19-2024 Mental Status Orientation Oriented x 4 [facility] 04-19-2024 Mental Status [facility] Clinical Notes 10-30-2019 to 12-31-2024 Note Date & Type Note Facility 12-31-2024 Note HNO ID: [id number] Author: FERMÍN GARCIA RPh Service: ? Author Type: ? Type: Progress Notes Filed: 01/04/2025 10:35 Note Text: [facility] Refill Assessment Medication(s): Xtandi Reviewed OV note on 12/17. Labs reviewed. Latest Reference Range AND Units 06/23/24 11:48 09/17/24 11:14 12/10/24 11:30 PSA <2.60 ng/mL 24.91 (H) 19.45 (H) 15.14 (H) 1. continue lupron enzalutamide. 2. Follow PSA Next clinic visit scheduled 03/11/25. ALLERGIES No Known Allergies Patient's current medication list and adherence status to current therapy were reviewed by Specialty Pharmacy clinical pharmacist to identify any new drug interactions or non-compliance to therapy. Therapy continues to be appropriate for disease, patient response, and medical condition. Verification of therapeutic benefit and effectiveness with current therapy was completed. Adverse events, barriers in adherence, and side effects were assessed and addressed if applicable. Will proceed with refill with no changes in therapy - patient progressing towards achieving therapeutic goals based on medication-specific laboratory parameters, disease state markers and outcomes. Office/provider notes have been reviewed prior to dispensing the medication. Fermín Garcia RPh Clinical Pharmacist Oncology [facility] P F Pool: P [facility] Pool #: [id number] Agronomist Assessment Patient confirmed: Yes Med/dose confirmed: Yes Supplies needed: No supplies needed Missed doses: No Estimated days supply on hand: 8 Copay amount: 0 Delivery method: FedEx Signature required: No Delivery Address Options from [facility]: [facility] Home Delivery Address Calculated: [address], [place] [address] Delivery date: 01/05/25 Questions or concerns for the pharmacist?: No Did you have any side effects believed to be related to this medication, that resulted in hospitalization?: No Current Outpatient Medications on File Prior to Visit Medication Sig tamsulosin (FLOMAX) 0.4 mg Take 1 capsule by mouth once daily. atorvastatin (LIPITOR) 40 mg tablet Take 40 mg by mouth once daily. clopidogrel (PLAVIX) 75 mg tablet Take 75 mg by mouth once daily. acetaminophen (TYLENOL EXTRA STRENGTH) 500 mg tablet Take 500 mg by mouth every 8 hours as needed. enzalutamide (XTANDI) 40 mg capsule Take 4 capsules (160mg) by mouth once daily. pantoprazole DR (PROTONIX) 40 mg tablet Take 40 mg by mouth once daily. (Patient not taking: Reported on 12/17/2024) nwwcvdzvfhz-ymztdadjg-xwnwahgz (TRELEGY ELLIPTA) 200-62.5-25 mcg inhalation powder Inhale 1 Puff as instructed once daily. B-complex with vitamin C (SUPER B COMPLEX-VITAMIN C ORAL) Take 1 tablet by mouth once daily. triamcinolone acetonide (NASACORT AQ) 55 mcg nasal inhaler Use 2 Sprays in each nostril once daily. aspirin, enteric coated (ASPIRIN, ENTERIC COATED) 81 mg EC tablet Take 1 tablet by mouth once daily. hydroCHLOROthiazide (HYDRODIURIL, ESIDRIX) 12.5 mg tablet Take 12.5 mg by mouth once daily. (Patient not taking: Reported on 12/17/2024) iv contrast (will be provided with radiology test) CT Chest W -Inject, intravenously, once for 1 dose.No IV access, insert saline lock prior to the beginning of sedation, infusion, injection of imaging exam. Discontinue saline lock post exam. If Pt. has a central line or IVAD, may access for administration according to line specific nursing protocol. Once exam is complete flush line and de-access according to line specific nursing protocol in the CT contrast administration guidelines link. docusate sodium (COLACE) 100 mg capsule Take 1 capsule by mouth twice daily as needed. (Patient not taking: Reported on 12/17/2024) rosuvastatin (CRESTOR) 5 mg tablet Take 5 mg by mouth once daily. (Patient not taking: Reported on 12/17/2024) ramipril (ALTACE) 10 mg capsule Take 10 mg by mouth once daily. (Patient not taking: Reported on 12/17/2024) metoprolol tartrate, short acting, (LOPRESSOR) 25 mg tablet TAKE 1/2 (ONE-HALF) TABLET BY MOUTH TWICE DAILY calcium carbonate-vitamin D3 (OSCAL+D) 500 mg(1,250mg) -400 unit chewable tablet Take 1 tablet by mouth once daily. No current facility-administered medications on file prior to visit. [facility] SPECIAL[facility] CLINICAL ASSESSMENT - HEMATOLOGY ONCOLOGY V6: Ivent complete: No Assessment to use: Refill Lab monitoring inclusive of CBC, Chem-7, and other labs as pertinent for therapy: Yes Chemo cycle timing assessment: N/A Assessment of injection issues: N/A Current medication list (including drug interaction assessment): Yes Experience of adverse reactions to the medication: Yes Date of influenza vaccination reminder: 05/03/2024 Date of most recent vaccination assessment: 05/03/2024 Treatment Plan Information: Dx: metastatic prostate cancer Tx Hx: bicalutamide, abiraterone/prednisone, enzalutamide (current) Tx Plan: continue Lupron a (more content not included)... [facility] 12-28-2024 Evaluation note Diagnosis Onset Date Resolution Irregular heart rhythm acute Oc 2024 1:34pm Asthma-chronic obstructive pulmonary disease overlap syndrome chronic December 28 1:34pm Prostate cancer chronic December 092024 1:34pm [facility] Work Phone: 1(887) 454-805710-21-2025 Progress [facility] Pulmonary Medicine [address] [place] [address] OFFICE VISIT Date of Service: 12/28/24 MR#: [id number] Acct: [id number] Name: SALO NAGY Rep #: [id number] : 1950 Provider: NISHA Smith Age/Sex: 74/M Location: [facility].PMW Status: Signed Assessment and Plan Assessment and Plan (1) Irregular heart rhythm: Status: Acute Plan: New. I went back and looked at previous physical exams that we have on file, ithas never been documented that the patient has had an irregular heart rhythm. The patient states that he has seen his billing clinician in the past month and seen his general practitioner, no one has ever mentioned an irregular rhythm. I recommended that the patient be seen in the emergency department because he is not on any anticoagulation. He is somewhat hypertensive today. This certainly could explain the shortness ofbreath that is worse on exertion. They were ableto contact his primary care doctor by phone, and I spoke with him. The primary care doctor is going to be able to perform a EKG in the office. The patient is stable and able to be transported by his over to the primary care doctor's office for the testing. The primary care doctor will assume full responsibilityfor this problem moving forward. The patient feels comfortable with this. He was not agreeable to being seen in the emergency department today. He left the office without scheduling his follow-up or testing, they plan to contact the office in the next day or so to schedule all the appointments. (2) Asthma-chronic obstructive pulmonary disease overlap syndrome: Status: Chronic Comment: FEV1 72% Plan: Unclear if COPD has progressed, he is more symptomatic. Repeating PFT and pulmonary stress test. Hedoes not appear to be an exacerbation of COPD today. Continue current maintenance medication, he noreen triple therapy with Trelegy. Contact the office for any new or worsening symptoms. An acute visit and typically be arranged within 1-2 days. Follow-up in 4-6 weeks to discuss test results. (3) Prostate cancer: Status: Chronic Plan: Complicates exam, plan, care and prognosis. The patient and his admit thatthey were aware thatthe cancer was everywhere. I am going to defer further chest imaging to his oncologist. He can determine if and when any additional chest imaging is necessary. They plan to take the LDCT interpretation with themto the March follow-up. Orders: Orders PFT Complete - DLCO, Spirometry b/a bronchodilators, lung volumes Today J44.89 - Other specified chronic obstructive pulmonary disease Simple Pulmonary Exercise Test Today J44.89 - Other specified chronic obstructive pulmonary disease Plan Details Additional Comments: This note was generated with Achie[employer] dictation software. It may contain incorrectwords, spelling, and punctuation that were not noted in checking the note beforesigning. I have spent 50 minutes today reviewing labs, records and history. Time includes coordinating care,interpretation of tests, discussion with patient's other health care providers via telephone. This also includes time I spent withthe patient for exam, treatment plan and education as well as documenting clinical information. Portions of this documentation have been copied and pasted from previous office visit notes to provide a cohesive continuity of the history. The note has been reviewed, edited, and updated, as necessary. Follow Up: 1 Month HPI 1 Y FU Chief Complaint: test results HPI Comments Details: This patient presents to the office today for a routine follow up on his Asthma/COPD overlap syndrome. He is ambulatory, on room air and accompanied today by his . He has not recently been seen in the ED or urgent care for any respiratory illness. He has not required any antibiotics or prednisone for any breathing problems. The patient reports that he was seen in April and planned to have a stent placed at [facility]. However, they were not able to inflate the balloon and ultimately the patient had an open heart surgery with a single bypass. The patient completed cardiac rehab as recommended. He is compliant with use of Trelegy 1 puff daily. He rinses his mouth after each use. He denies anymedication side effect such sore throat or thrush. He has not recently used or needed albuterol rescue inhaler. He is now experiencing shortness of breath that is worse on exertion. He is easily exerted. His states that he can only walk a few steps and has to stop to catch his breath. He denies any cough,sputum production or hemoptysis.He denies any wheezing, chest tightness, chest pain or palpitations. He has not had any fever, chills or body aches. If you recall, this patient smoked 1 pack/day for 40 years. He quit smoking in 2019. Test results personally viewed patient: Low-dose CT lung screen completed on November 29, 2024. No suspicious pulmonary nodules. However, there is diffuse fibrotic metastasis throughout theskeleton. Intake Vital Signs 12/29/23 07:34 12/28/24 13:44 Height 5 ft 11 in 5 ft 11 in Weight: 210 lb BMI 29.2 BP 161/86 H Blood Pressure Location Lt brachial Position Sitting Respiration 18 Pulse 71 Pulse Source Monitor Temp 97.1 F L Temperature Source Temporal Artery Pulse Oximetry (%) 96 Oxygen Delivery Method room air Comment patient reported weight, scale broken Intake Visit Reasons: 1 Y FU Chief Complaint: establish care Harness Rigger Required: No Accompanied by: Allergies tizanidine Allergy (Severe, Verified 12/28/24 13:37) Other Medications ?Medication ?Instructions ?Recorded ?Confirmed ?Type metoprolol tartrate 25 mg tablet 12.5 mg PO BID 12/28/24 History albuterol sulfate 90 mcg/actuation 1 inh inhalation Q4 H PRN 01/01/23 12/28/24 History aerosol inhaler aspirin 81 mg tablet,delayed 81 mg PO DAILY 01/01/23 1 History release calcium carbonate (Super Calcium) 600 mg PO DAILY 12/0912/28/24 History enzalutamide 40 mg tablet (Xtandi) 160 mg PO DAILY 08/3112/28/24 History tamsulosin 0.4 mg capsule 0.4 mg PO QHS 05/14/2312/28 History vitamin B complex 1 cap PO DAILY 05/14/2312/09 History fluticasone fur. 200 mcg-umeclid 1 inh inhalation JAK Y #3 ea 03/11/24 12/28/24 Rx 62.5 mcg-vilant 25 mcg inhalat.powder (Trelegy Ellipta) atorvastatin 40 mg tablet 40 mg PO QDAY 12/28/2412/28 History clopidogrel 75 mg tablet 75 mg PO QDAY 12/28/2412/28 History famotidine 20 mg tablet 20 mg PO BID 12/28/24 History Have you fallen in the past year?: No PFSH Medical History Iliac artery aneurysm, right Abdominal aortic aneurysm (AAA) Change in mole Arthritis Back problem Surgical History H/O coronary artery bypass surgery Hx of colonoscopy Hx of prostate biopsy Hx of cystoscopy Family History Mother Breast cancer Thyroid disorder Brother Heart disease Lupus Social History Smoking Status: Former smoker second hand exposure: Yes alcohol intake: former substance use type: does not use caffeine: Yes Type: coffee Number of servings: 6 what type of physical activity do you participate in: none frequency: does not exercise Exam Const Constitutional: Positive conversant, cooperative, in no acute respiratory distress, well developed,well nourished, good hygiene, frail appearing and obese Head Head: Yes normocephalic, Yes atraumatic and No cyanosis of lips/distal nose Eyes Eye: Positive clear conjunctiva; Negative nystagmus Ears Ear: Positive hard of hearing and external ears normal Nose Nose: Yes external nose normal Mouth Mouth: Positive oral mucosae normal Neck Neck: Positive normal visual inspection, full ROM and trachea midline Chest Wall Chest: Positive symmetric chest movement and increased A/P diameter Resp lung sounds: Positive good air exchange and normal expiratory time; Negative wheezes, rhonchi, rales or use of accessory muscles Cardio Cardiac: Positive S1 normal and S2 normal; Negative regular rate, regular rhythm, murmur or rub GI GI: Positive normal to inspection and obese; Negative distended Musc Musculoskeletal: Positive steady gait; Negative kyphosis or scoliosis Skin Pulmonary Skin Exam: Positive intact; Negative lesion, rash, ulcers or erythema Pulses Pulse: Yes radial pulses present Extremities Extremities: Yes capillary refill normal, No clubbing, No cyanosis and No edema Neuro Neurologic: Yes no focal neuro deficits, Yes conversant, Yes cooperative, Yes normal cognition, Yesnormal coordination, Yes normal concentration and Yes understands questions Psych Appearance: Positive grossly normal and eye contact Mental Status: Positive mental status grossly normal Mood: Positive congruent mood Affect: Positive normal affect Coding Level of Care Code Off vis,est,level 5 Diagnoses Irregular heart rhythm I49.9 Asthma-chronic obstructive pulmonary disease overlap syndrome J44.89 Prostate cancer C61 Clinical Quality Measures Falls Risk Screening/Assistive Devices Have you fallen in the past year?: No 12/28/24 1600 kervin HAND STEMMER HAND STEMMER-C> Date _ Claudia Smith HAND STEMMER HAND STEMMER-C Cosigner Signature: Date (if applicable) CC: HAND STEMMER-C Silverio Bolivar ~ [facility]10-21-2025 Progress note Author Claudia Smith [facility] Note Date/Time December 28, 2024 3 :34pm [facility] Pulmonary Medicine [address] [place] [address] OFFICE VISIT Date of Service: 12/28/24 MR#: [id number] Acct: [id number] Name: SALO NAGY Rep #: [id number] : 1950 Provider: NISHA Smith Age/Sex: 74/M Location: [facility].PMW Status: Signed Assessment and Plan Assessment and Plan (1) Irregular heart rhythm: Status: Acute Plan: New. I went back and looked at previous physical exams that we have on file, ithas never been documented that the patient has had an irregular heart rhythm. The patient states that he has seen his billing clinician in the past month and seen his general practitioner, no one has ever mentioned an irregular rhythm. I recommended that the patient be seen in the emergency department because he is not on any anticoagulation. He is somewhat hypertensive today. This certainly could explain the shortness of breath that is worse on exertion. They were ableto contact his primary care doctor by phone, and I spoke with him. The primary care doctor is going to be able to perform a EKG in the office. The patient is stable and able to be transported by his over to the primary care doctor's office for the testing. The primary care doctor will assume full responsibilityfor this problem moving forward. The patient feels comfortable with this. He was not agreeable to being seen in the emergency department today. He left the office without scheduling his follow-up or testing, they plan to contact the office in the next day or so to schedule all the appointments. (2) Asthma-chronic obstructive pulmonary disease overlap syndrome: Status: Chronic Comment: FEV1 72% Plan: Unclear if COPD has progressed, he is more symptomatic. Repeating PFT and pulmonary stress test. He does not appear to be an exacerbation of COPD today. Continue current maintenance medication, he is on triple therapy with Trelegy. Contact the office for any new or worsening symptoms. An acute visit and typically be arranged within 1-2 days. Follow-up in 4-6 weeks to discuss test results. (3) Prostate cancer: Status: Chronic Plan: Complicates exam, plan, care and prognosis. The patient and his admit thatthey were aware that the cancer was everywhere. I am going to defer further chest imaging to his oncologist. He can determine if and when any additional chest imaging is necessary. They plan to take the LDCT interpretation with themto the March follow-up. Orders: Orders PFT Complete - DLCO, Spirometry b/a bronchodilators, lung volumes Today J44.89 - Other specified chronic obstructive pulmonary disease Simple Pulmonary Exercise Test Today J44.89 - Other specified chronic obstructive pulmonary disease Plan Details Additional Comments: This note was generated with [employer] dictation software. It may contain incorrectwords, spelling, and punctuation that were not noted in checking the note beforesigning. I have spent 50 minutes today reviewing labs, records and history. Time includes coordinating care, interpretation of tests, discussion with patient's other health care providers via telephone. This also includes time I spent withthe patient for exam, treatment plan and education as well as documenting clinical information. Portions of this documentation have been copied and pasted from previous office visit notes to provide a cohesive continuity of the history. The note has been reviewed, edited, and updated, as necessary. Follow Up: 1 Month HPI 1 Y FU Chief Complaint: test results HPI Comments Details: This patient presents to the office today for a routine follow up on his Asthma/COPD overlap syndrome. He is ambulatory, on room air and accompanied today by his . He has not recently been seen in the ED or urgent care for any respiratory illness. He has not required any antibiotics or prednisone for any breathing problems. The patient reports that he was seen in April and planned to have a stent placed at [facility]. However, they were not able to inflate the balloon and ultimately the patient had an open heart surgery with a single bypass. The patient completed cardiac rehab as recommended. He is compliant with use of Trelegy 1 puff daily. He rinses his mouth after each use. He denies any medication side effect such sore throat or thrush. He has not recently used or needed albuterol rescue inhaler. He is now experiencing shortness of breath that is worse on exertion. He is easily exerted. His states that he can only walk a few steps and has to stop to catch his breath. He denies any cough, sputum production or hemoptysis.He denies any wheezing, chest tightness, chest pain or palpitations. He has not had any fever, chills or body aches. If you recall, this patient smoked 1 pack/day for 40 years. He quit smoking in 2019. Test results personally viewed patient: Low-dose CT lung screen completed on November 29, 2024. No suspicious pulmonary nodules. However, there is diffuse fibrotic metastasis throughout theskeleton. Intake Vital Signs 12/29/23 07:34 12/28/24 13:44 Height 5 ft 11 in 5 ft 11 in Weight: 210 lb BMI 29.2 BP 161/86 H Blood Pressure Location Lt brachial Position Sitting Respiration 18 Pulse 71 Pulse Source Monitor Temp 97.1 F L Temperature Source Temporal Artery Pulse Oximetry (%) 96 Oxygen Delivery Method room air Comment patient reported weight, scale broken Intake Visit Reasons: 1 Y FU Chief Complaint: establish care Harness Rigger Required: No Accompanied by: Allergies tizanidine Allergy (Severe, Verified 12/28/24 13:37) Other Medications ?Medication ?Instructions ?Recorded ?Confirmed ?Type metoprolol tartrate 25 mg tablet 12.5 mg PO BID 12/28/24 History albuterol sulfate 90 mcg/actuation 1 inh inhalation Q4 H PRN 01/01/23 12/28/24 History aerosol inhaler aspirin 81 mg tablet,delayed 81 mg PO DAILY 01/01/23 1 History release calcium carbonate (Super Calcium) 600 mg PO DAILY 12/0912/28/24 History enzalutamide 40 mg tablet (Xtandi) 160 mg PO DAILY 08/3112/28/24 History tamsulosin 0.4 mg capsule 0.4 mg PO QHS 05/14/2312/28 History vitamin B complex 1 cap PO DAILY 05/14/2312/09 History fluticasone fur. 200 mcg-umeclid 1 inh inhalation JAK Y #3 ea 03/11/24 12/28/24 Rx 62.5 mcg-vilant 25 mcg inhalat.powder (Trelegy Ellipta) atorvastatin 40 mg tablet 40 mg PO QDAY 12/28/2412/28 History clopidogrel 75 mg tablet 75 mg PO QDAY 12/28/2412/28 History famotidine 20 mg tablet 20 mg PO BID 12/28/24 History Have you fallen in the past year?: No PFSH Medical History Iliac artery aneurysm, right Abdominal aortic aneurysm (AAA) Change in mole Arthritis Back problem Surgical History H/O coronary artery bypass surgery Hx of colonoscopy Hx of prostate biopsy Hx of cystoscopy Family History Mother Breast cancer Thyroid disorder Brother Heart disease Lupus Social History Smoking Status: Former smoker second hand exposure: Yes alcohol intake: former substance use type: does not use caffeine: Yes Type: coffee Number of servings: 6 what type of physical activity do you participate in: none frequency: does not exercise Exam Const Constitutional: Positive conversant, cooperative, in no acute respiratory distress, well developed, well nourished, good hygiene, frail appearing and obese Head Head: Yes normocephalic, Yes atraumatic and No cyanosis of lips/distal nose Eyes Eye: Positive clear conjunctiva; Negative nystagmus Ears Ear: Positive hard of hearing and external ears normal Nose Nose: Yes external nose normal Mouth Mouth: Positive oral mucosae normal Neck Neck: Positive normal visual inspection, full ROM and trachea midline Chest Wall Chest: Positive symmetric chest movement and increased A/P diameter Resp lung sounds: Positive good air exchange and normal expiratory time; Negative wheezes, rhonchi, rales or use of accessory muscles Cardio Cardiac: Positive S1 normal and S2 normal; Negative regular rate, regular rhythm, murmur or rub GI GI: Positive normal to inspection and obese; Negative distended Musc Musculoskeletal: Positive steady gait; Negative kyphosis or scoliosis Skin Pulmonary Skin Exam: Positive intact; Negative lesion, rash, ulcers or erythema Pulses Pulse: Yes radial pulses present Extremities Extremities: Yes capillary refill normal, No clubbing, No cyanosis and No edema Neuro Neurologic: Yes no focal neuro deficits, Yes conversant, Yes cooperative, Yes normal cognition, Yes normal coordination, Yes normal concentration and Yes understands questions Psych Appearance: Positive grossly normal and eye contact Mental Status: Positive mental status grossly normal Mood: Positive congruent mood Affect: Positive normal affect Coding Level of Care Code Off vis,est,level 5 Diagnoses Irregular heart rhythm I49.9 Asthma-chronic obstructive pulmonary disease overlap syndrome J44.89 Prostate cancer C61 Clinical Quality Measures Falls Risk Screening/Assistive Devices Have you fallen in the past year?: No 12/28/24 1600 <Electronically signed by Claudia galeana HAND STEMMER HAND STEMMER-C> Date _ Claudia Smith NP HAND STEMMER-C Cosigner Signature: Date (if applicable) CC: HAND STEMMER-C Silverio Bolivar ~ [place] [employer] Work Phone: [phone] 115-786010-10-2025 NoteHNO ID: [id number] Author: LUIS MIGUEL GUY MD Service: ? Author Type: Physician Type: Progress Notes Filed: 12/17/2024 14:01 Note Text: (Elements copied from my note dated September 24, 2024, have been reviewed and updated where appropriate, and all reflect current assessment and medical decision making from today's encounter, December 17, 2024) HISTORY OF PRESENT ILLNESS: Salo Nagy is a 72 year old male dx prostate cancer 2019 on basis of back pain found bone lesions, PSA >3000 at that time. Prostate biopsy at that time showed adenocarcinoma. Started lupron and zytiga after casodex blockade. PSA responded well, PSA tripled in fall 2022 Switched to xtandi, delay in starting due to obtaining med. Guardant was negative for actionable mutation. PSA, rising, DT < 3 months Recent open heart surgery for CABG, slowly recovering with cardiac rehab. Here for follow up, PSMA PET 07-27-24, diffuse sclerotic lesions but 2 intensely avid lesions of pelvis. Reviewed with Dr Pearson, agrees RT to pelvis lesions is reasonable RT to bone lesions 08-16 to 08-30-24. Feels well. PSA down a bit. CLINICAL IMPRESSION: Prostate cancer metastatic to bone. Prior bone scan (2019) noted diffuse lesions, but PSMA shows 2 intensely avid pelvis lesions. PSA climbing rate increased, oligometastatic lesions (at least likely more contributory to PSA increase) RECOMMENDATION/PLAN: 1. continue lupron enzalutamide. 2. Follow PSA Written and verbal health teaching given to patient, patient verbalizes understanding and agrees with treatment plan. PAST MEDICAL HISTORY Diagnosis Date Aneurysm of infrarenal abdominal aorta Bone metastases 07/24/2018 CVA (cerebral vascular accident) (HCC) 09/07/2018 Elevated LFTs 04/15/2022 Essential hypertension 09/07/2018 History of CVA (cerebrovascular accident) Malignant neoplasm of prostate (HCC) 07/10/2018 Panlobular emphysema (HCC) 09/07/2018 PAST SURGICAL HISTORY Procedure Laterality Date CYSTOSCOPY 01/09/2018 TRURL ELECTROSURG RESCJ PROSTATE BLEED COMPLETE FAMILY HISTORY Problem Relation Age of Onset Thyroid Mother Breast Cancer Mother Heart Father Heart Brother Aneurysm No Family History Social History Tobacco Use Smoking status: Former Current packs/day: 0.00 Average packs/day: 1 pack/day for 45.0 years (45.0 ttl pk-yrs) Types: Cigarettes Start date: 04/18/1974 Quit date: 04/18/2019 Years since quittin.6 Smokeless tobacco: Never Vaping Use Vaping status: Never Used Substance Use Topics Alcohol use: Never Drug use: Never ALLERGIES: ALLERGIES No Known Allergies CURRENT OUTPATIENT MEDICATIONS: tamsulosin (FLOMAX) 0.4 mg Take 1 capsule by mouth once daily. atorvastatin (LIPITOR) 40 mg tablet Take 40 mg by mouth once daily. clopidogrel (PLAVIX) 75 mg tablet Take 75 mg by mouth once daily. acetaminophen (TYLENOL EXTRA STRENGTH) 500 mg tablet Take 500 mg by mouth every 8 hours as needed. enzalutamide (XTANDI) 40 mg capsule Take 4 capsules (160mg) by mouth once daily. pantoprazole DR (PROTONIX) 40 mg tablet Take 40 mg by mouth once daily. (Patient not taking: Reported on 12/17/2024) pdyxhzwksem-nfwecfnuw-iotxyxsx (TRELEGY ELLIPTA) 200-62.5-25 mcg inhalation powder Inhale 1 Puff as instructed once daily. B-complex with vitamin C (SUPER B COMPLEX-VITAMIN C ORAL) Take 1 tablet by mouth once daily. triamcinolone acetonide (NASACORT AQ) 55 mcg nasal inhaler Use 2 Sprays in each nostril once daily. aspirin, enteric coated (ASPIRIN, ENTERIC COATED) 81 mg EC tablet Take 1 tablet by mouth once daily. hydroCHLOROthiazide (HYDRODIURIL, ESIDRIX) 12.5 mg tablet Take 12.5 mg by mouth once daily. (Patient not taking: Reported on 12/17/2024) iv contrast (will be provided with radiology test) CT Chest W -Inject, intravenously, once for 1 dose.No IV access, insert saline lock prior to the beginning of sedation, infusion, injection of imaging exam. Discontinue saline lock post exam. If Pt. has a central line or IVAD, may access for administration according to line specific nursing protocol. Once exam is complete flush line and de-access according to line specific nursing protocol in the CT contrast administration guidelines link. docusate sodium (COLACE) 100 mg capsule Take 1 capsule by mouth twice daily as needed. (Patient not taking: Reported on 12/17/2024) rosuvastatin (CRESTOR) 5 mg tablet Take 5 mg by mouth once daily. (Patient not taking: Reported on 12/17/2024) ramipril (ALTACE) 10 mg capsule Take 10 mg by mouth once daily. (Patient not taking: Reported on 12/17/2024) metoprolol tartrate, short acting, (LOPRESSOR) 25 mg tablet TAKE 1/2 (ONE-HALF) TABLET BY MOUTH TWICE DAILY calcium carbonate-vitamin D3 (OSCAL+D) 500 mg(1,250mg) -400 unit chewable tablet Take 1 tablet by mouth once daily. REVIEW OF SYSTEMS: GENERAL: No fever, night sweats, weight loss or malaise. All other reviewed and negative other than HPI. PHY (more content not included)...[facility]09-24-2025 Radiology Diagnostic study note [facility] [address] [place] [address] Lung Screening MR#: [id number] Acct: [id number] Name: SALO NAGY Rep #: [id number] : 1950 M 74 From: Aj Chen MD PCP: Silverio Bo Vilas, HAND STEMMER-C Status: REG CLI Study:Low Dose CT Lung Screening Date of Exam : 11/29/24 Exam# [id number] Ordering Dr: Yelena Smith NP HAND STEM[place] PROCEDURE: LOW DOSE CT LUNG SCREENING 11/29/2024 REASON FOR EXAM: SMOKER QUIT 2019 TECHNIQUE: Procedure Code: [id number] Modality: CT Procedure: LOW DOSE CT LUNG SCREENING Coronal and Sagittal reconstruction series were provided. One or more dose reduction techniques were used (e.g., Automated exposure control, adjustment of the mA and/or kV according to patient size, use of iterative reconstruction technique). REFERENCE LINK: [employer] Lung-RADS RADIATION DOSE SUMMARY: CTDlvol: 3.18 mGy DLP: 107.6 mGycm COMPARISON: CT chest dated 11/2023 FINDINGS: PULMONARY NODULES: (Only nodules >3mm are reported) Nodules described below are on series 2 unless otherwise specified. Pulmonary Nodules: No suspicious pulmonary nodule. Hardware:Status post median sternotomy Lymph Nodes:Shotty mediastinal lymph nodes stable since previous exams Heart and Vasculature:Mild cardiomegaly.Atherosclerotic calcifications of the thoracic aorta. Thoracic aorta and pulmonary arteries have normal contours; noncontrast technique limits evaluation. Calcifications of the aortic leaflets and mitral annulus. Status post CABG. Lungs and Airways: Severe emphysematous changes with bullous emphysema. Parenchymal scarring seen in the left lower lobe posteriorly. Patent airway. Pleura:No effusion. No pneumothorax. Upper Abdomen:Within normal limits Bones:Diffuse sclerotic metastases throughout the skeleton CT/Low Dose CT Lung Screening IMPRESSION: Diffuse lytic and sclerotic lesions throughout the bone consistent with diffuse metastatic disease. Severe emphysematous changes throughout the lung. Stable mediastinal lymph nodes unchanged. No suspicious pulmonary nodule. No change since previous exam. Lung-RADS Category: 1 NEGATIVE. RECOMMEND 12-MONTH SCREENING LDCT. Other Significant Findings: Diffuse metastatic disease throughout the bone, unchanged. Mediastinal lymphadenopathy, stable. Reading Location: [id number] CC: NISHA Smith; NISHA Bolivar ~ [employer]: Signed [facility]09-23-2025 NoteHNO ID: [id number] Author: YI PACE RPh Service: ? Author Type: ? Type: Progress Notes Filed: 12/03/2024 08:18 Note Text: [facility] Specialty Refill Assessment Medication(s): Xtandi No new clinical information to review since last SPP refill encounter. Next OV scheduled 12/17/24. ALLERGIES No Known Allergies Patient's current medication list and adherence status to current therapy were reviewed by Specialty Pharmacy clinical pharmacist to identify any new drug interactions or non-compliance to therapy. Therapy continues to be appropriate for disease, patient response, and medical condition. Verification of therapeutic benefit and effectiveness with current therapy was completed. Adverse events, barriers in adherence, and side effects were assessed and addressed if applicable. Will proceed with refill with no changes in therapy - patient progressing towards achieving therapeutic goals based on medication-specific laboratory parameters, disease state markers and outcomes. Office/provider notes have been reviewed prior to dispensing the medication. Yi Pace, PharmD Clinical Pharmacist, Oncology [facility] P: , F: Pool: P [facility] Pool #: [id number] Agronomist Assessment Patient confirmed: Yes Med/dose confirmed: Yes Supplies needed: No supplies needed Missed doses: No Estimated days supply on hand: 9 Copay amount: 0 Copay form of payment: (N/A) Payment confirmed: Yes Delivery method: FedEx Signature required: Waived on patient request Delivery Address Options from [facility]: [facility] Home Delivery Address Calculated: [address] [place] [address] Delivery date: 12/06/24 Questions or concerns for the pharmacist?: No Did you have any side effects believed to be related to this medication, that resulted in hospitalization?: No Current Outpatient Medications on File Prior to Visit Medication Sig tamsulosin (FLOMAX) 0.4 mg Take 1 capsule by mouth once daily. atorvastatin (LIPITOR) 40 mg tablet Take 40 mg by mouth once daily. clopidogrel (PLAVIX) 75 mg tablet Take 75 mg by mouth once daily. acetaminophen (TYLENOL EXTRA STRENGTH) 500 mg tablet Take 500 mg by mouth every 8 hours as needed. enzalutamide (XTANDI) 40 mg capsule Take 4 capsules (160mg) by mouth once daily. pantoprazole DR (PROTONIX) 40 mg tablet Take 40 mg by mouth once daily. (Patient not taking: Reported on 07/02/2024) ylbegqrxkjt-xkkozltei-dtmjzluj (TRELEGY ELLIPTA) 200-62.5-25 mcg inhalation powder Inhale 1 Puff as instructed once daily. B-complex with vitamin C (SUPER B COMPLEX-VITAMIN C ORAL) Take 1 tablet by mouth once daily. triamcinolone acetonide (NASACORT AQ) 55 mcg nasal inhaler Use 2 Sprays in each nostril once daily. aspirin, enteric coated (ASPIRIN, ENTERIC COATED) 81 mg EC tablet Take 1 tablet by mouth once daily. hydroCHLOROthiazide (HYDRODIURIL, ESIDRIX) 12.5 mg tablet Take 12.5 mg by mouth once daily. (Patient not taking: Reported on 03/18/2023) iv contrast (will be provided with radiology test) CT Chest W -Inject, intravenously, once for 1 dose.No IV access, insert saline lock prior to the beginning of sedation, infusion, injection of imaging exam. Discontinue saline lock post exam. If Pt. has a central line or IVAD, may access for administration according to line specific nursing protocol. Once exam is complete flush line and de-access according to line specific nursing protocol in the CT contrast administration guidelines link. docusate sodium (COLACE) 100 mg capsule Take 1 capsule by mouth twice daily as needed. (Patient not taking: Reported on 07/02/2024) rosuvastatin (CRESTOR) 5 mg tablet Take 5 mg by mouth once daily. (Patient not taking: Reported on 07/02/2024) ramipril (ALTACE) 10 mg capsule Take 10 mg by mouth once daily. (Patient not taking: Reported on 07/02/2024) metoprolol tartrate, short acting, (LOPRESSOR) 25 mg tablet TAKE 1/2 (ONE-HALF) TABLET BY MOUTH TWICE DAILY calcium carbonate-vitamin D3 (OSCAL+D) 500 mg(1,250mg) -400 unit chewable tablet Take 1 tablet by mouth once daily. No current facility-administered medications on file prior to visit. [facility] SPECIAL[facility] CLINICAL ASSESSMENT - HEMATOLOGY ONCOLOGY V6: Ivent complete: No Assessment to use: Refill Lab monitoring inclusive of CBC, Chem-7, and other labs as pertinent for therapy: Yes Chemo cycle timing assessment: N/A Assessment of injection issues: N/A Current medication list (including drug interaction assessment): Yes Experience of adverse reactions to the medication: Yes Date of influenza vaccination reminder: 05/03/2024 Date of most recent vaccination assessment: 05/03/2024 Treatment Plan Information: Dx: metastatic prostate cancer Tx Hx: bicalutamide, abiraterone/prednisone, enzalutamide (current) Tx Plan: continue Lupron and enzalutamide, switch to Taxotere if PSA does not improved in 3 months Medication: en (more content not included)...[facility] 11-01-2024 History of Present illness Narrative* Lucie Callaway - 11/01/2024 9:54 AM EDT [facility] Specialty Refill Assessment Medication(s): Xtandi Patient's current medication list and adherence status to current therapy were reviewed by Specialty Pharmacy clinical pharmacist to identify any new drug interactions or non-compliance to therapy. Therapy continues to be appropriate for disease, patient response, and medical condition. Verification of therapeutic benefit and effectiveness with current therapy was completed. Adverse events, barriers in adherence, and side effects were assessed and addressed if applicable. Will proceed with refill with no changes in therapy - patient progressing towards achieving therapeutic goals based on medication- specific laboratory parameters, disease state markers and outcomes. Office/provider notes have been reviewed prior to dispensing the medication. Agronomist Assessment Patient confirmed: Yes Med/dose confirmed: Yes Supplies needed: No supplies needed Missed doses: No Estimated days supply on hand: 8 (not at home to count) Copay amount: 0 Copay form of payment: (n/a) Payment confirmed: Yes Delivery method: FedEx Signature required: Waived on patient request Delivery Address Options from [facility]: [facility] Home Delivery Address Calculated: [address] [facility] [place], [place] [address] Delivery date: 11/05/24 Questions or concerns for the pharmacist?: No Did you have any side effects believed to be related to this medication, that resulted in hospitalization?: No Current Outpatient Medications on File Prior to Visit Medication Sig tamsulosin (FLOMAX) 0.4 mg Take 1 capsule by mouth once daily. atorvastatin (LIPITOR) 40 mg tablet Take 40 mg by mouth once daily. clopidogrel (PLAVIX) 75 mg tablet Take 75 mg by mouth once daily. famotidine (PEPCID) 20 mg tablet Take 20 mg by mouth two times a day. acetaminophen (TYLENOL EXTRA STRENGTH) 500 mg tablet Take 500 mg by mouth every 8 hours as needed. enzalutamide (XTANDI) 40 mg capsule Take 4 capsules (160mg) by mouth once daily. pantoprazole DR (PROTONIX) 40 mg tablet Take 40 mg by mouth once daily. (Patient not taking: Reported on 07/02/2024) koebrbyvizh-vsnxlmxcq-xqaifacr (TRELEGY ELLIPTA) 200-62.5-25 mcg inhalation powder Inhale 1 Puff asinstructed once daily. B-complex with vitamin C (SUPER B COMPLEX-VITAMIN C ORAL) Take 1 tablet by mouth once daily. triamcinolone acetonide (NASACORT AQ) 55 mcg nasal inhaler Use 2 Sprays in each nostril once daily. aspirin, enteric coated (ASPIRIN, ENTERIC COATED) 81 mg EC tablet Take 1 tablet by mouth once daily. hydroCHLOROthiazide (HYDRODIURIL, ESIDRIX) 12.5 mg tablet Take 12.5 mg by mouth once daily. (Patient not taking: Reported on 03/18/2023) iv contrast (will be provided with radiology test) CT Chest W -Inject, intravenously, once for 1 dose.No IV access, insert saline lock prior to the beginning of sedation, infusion, injection of imaging exam. Discontinue saline lock post exam. If Pt. has a central line or IVAD, may access for administration according to line specific nursing protocol. Once exam is complete flush line and de-accessaccording to line specific nursing protocol in the CT contrast administration guidelines link. docusate sodium (COLACE) 100 mg capsule Take 1 capsule by mouth twice daily as needed. (Patient nottaking: Reported on 07/02/2024) rosuvastatin (CRESTOR) 5 mg tablet Take 5 mg by mouth once daily. (Patient not taking: Reported on 07/02/2024) ramipril (ALTACE) 10 mg capsule Take 10 mg by mouth once daily. (Patient not taking: Reported on 07/02/2024) metoprolol tartrate, short acting, (LOPRESSOR) 25 mg tablet TAKE 1/2 (ONE-HALF) TABLET BY MOUTH TWICE DAILY calcium carbonate-vitamin D3 (OSCAL+D) 500 mg(1,250mg) -400 unit chewable tablet Take 1 tablet by mouth once daily. No current facility-administered medications on file prior to visit. [facility] SPECIALTY CLINICAL ASSESSMENT - HEMATOLOGY ONCOLOGY V6: Assessment to use: Refill Date of influenza vaccination reminder: 05/03/2024 Date of most recent vaccination assessment: 05/03/2024 Treatment Plan Information: Dx: metastatic prostate cancer Tx Hx: bicalutamide, abiraterone/prednisone, enzalutamide (current) Tx Plan: continue Lupron and enzalutamide, switch to Taxotere if PSA does not improved in 3 months Medication: enzalutamide (Xtandi) 40mg tablet Dose: 160mg Sig: Take 4 capsules (160mg) by mouth once daily. Administration: same time each day, swallow whole Handling: hazardous, wash hands Storage: room temperature, protect from moisture - keep bottle tightly closed Warnings: CVD effects, fractures, posterior reversible encephalopathy syndrome (PRES), seizures Adverse reactions: HTN, hot flashes, fatigue, hyperglycemia, constipation/diarrhea, nausea, decrease appetite/weight loss DDI: none Monitoring: CBC, LFTs, INR if on warfarin, BP, BG Vaccinations: shingles, influenza, Covid #3, Tdap, pneumococcal, RSV Est. Tx Plan Start Date: No information available Estimated Start Date Info: Continue current treatment Est. Estimated Treatment Duration: Until disease progression or unacceptable toxicity [facility]ie Callaway [facility] NoteHNO ID: [id number] Author: YIN DESAI RPh Service: ? Author Type: ? Type: Progress Notes Filed: 11/03/2024 17:37 Note Text: [facility]ty Refill Assessment Medication(s): Xtandi No new clinical information to review since last SPP refill encounter. Next OV scheduled 12/17/24. ALLERGIES No Known Allergies Patient's current medication list and adherence status to current therapy were reviewed by Specialty Pharmacy clinical pharmacist to identify any new drug interactions or non-compliance to therapy. Therapy continues to be appropriate for disease, patient response, and medical condition. Verification of therapeutic benefit and effectiveness with current therapy was completed. Adverse events, barriers in adherence, and side effects were assessed and addressed if applicable. Will proceed with refill with no changes in therapy - patient progressing towards achieving therapeutic goals based on medication-specific laboratory parameters, disease state markers and outcomes. Office/provider notes have been reviewed prior to dispensing the medication. Yin Desai, YeimiD, BCOP Clinical Pharmacist, Oncology [facility] P: , F: Pool: P [facility] Pool #: [id number] Agronomist Assessment Patient confirmed: Yes Med/dose confirmed: Yes Supplies needed: No supplies needed Missed doses: No Estimated days supply on hand: 8 (not at home to count) Copay amount: 0 Copay form of payment: (n/a) Payment confirmed: Yes Delivery method: FedEx Signature required: Waived on patient request Delivery Address Options from [facility]: [facility] Home Delivery Address Calculated: [address] [place] [address] Delivery date: 11/05/24 Questions or concerns for the pharmacist?: No Did you have any side effects believed to be related to this medication, that resulted in hospitalization?: No Current Outpatient Medications on File Prior to Visit Medication Sig tamsulosin (FLOMAX) 0.4 mg Take 1 capsule by mouth once daily. atorvastatin (LIPITOR) 40 mg tablet Take 40 mg by mouth once daily. clopidogrel (PLAVIX) 75 mg tablet Take 75 mg by mouth once daily. famotidine (PEPCID) 20 mg tablet Take 20 mg by mouth two times a day. acetaminophen (TYLENOL EXTRA STRENGTH) 500 mg tablet Take 500 mg by mouth every 8 hours as needed. enzalutamide (XTANDI) 40 mg capsule Take 4 capsules (160mg) by mouth once daily. pantoprazole DR (PROTONIX) 40 mg tablet Take 40 mg by mouth once daily. (Patient not taking: Reported on 07/02/2024) yxhuesxnoiz-yfhypksom-qitjmiyn (TRELEGY ELLIPTA) 200-62.5-25 mcg inhalation powder Inhale 1 Puff as instructed once daily. B-complex with vitamin C (SUPER B COMPLEX-VITAMIN C ORAL) Take 1 tablet by mouth once daily. triamcinolone acetonide (NASACORT AQ) 55 mcg nasal inhaler Use 2 Sprays in each nostril once daily. aspirin, enteric coated (ASPIRIN, ENTERIC COATED) 81 mg EC tablet Take 1 tablet by mouth once daily. hydroCHLOROthiazide (HYDRODIURIL, ESIDRIX) 12.5 mg tablet Take 12.5 mg by mouth once daily. (Patient not taking: Reported on 03/18/2023) iv contrast (will be provided with radiology test) CT Chest W -Inject, intravenously, once for 1 dose.No IV access, insert saline lock prior to the beginning of sedation, infusion, injection of imaging exam. Discontinue saline lock post exam. If Pt. has a central line or IVAD, may access for administration according to line specific nursing protocol. Once exam is complete flush line and de-access according to line specific nursing protocol in the CT contrast administration guidelines link. docusate sodium (COLACE) 100 mg capsule Take 1 capsule by mouth twice daily as needed. (Patient not taking: Reported on 07/02/2024) rosuvastatin (CRESTOR) 5 mg tablet Take 5 mg by mouth once daily. (Patient not taking: Reported on 07/02/2024) ramipril (ALTACE) 10 mg capsule Take 10 mg by mouth once daily. (Patient not taking: Reported on 07/02/2024) metoprolol tartrate, short acting, (LOPRESSOR) 25 mg tablet TAKE 1/2 (ONE-HALF) TABLET BY MOUTH TWICE DAILY calcium carbonate-vitamin D3 (OSCAL+D) 500 mg(1,250mg) -400 unit chewable tablet Take 1 tablet by mouth once daily. No current facility-administered medications on file prior to visit. [facility] SPECIAL[facility] CLINICAL ASSESSMENT - HEMATOLOGY ONCOLOGY V6: Ivent complete: No Assessment to use: Refill Lab monitoring inclusive of CBC, Chem-7, and other labs as pertinent for therapy: Yes Chemo cycle timing assessment: N/A Assessment of injection issues: N/A Current medication list (including drug interaction assessment): Yes Experience of adverse reactions to the medication: Yes Date of influenza vaccination reminder: 05/03/2024 Date of most recent vaccination assessment: 05/03/2024 Treatment Plan Information: Dx: metastatic prostate cancer Tx Hx: bicalutamide, abiraterone/prednisone, enzalutamide (current) Tx Plan: cont (more content not included)...[facility]07-25-2025 History of Present illness Narrative* Janine Taveras - 10/01/2024 9:58 AM EDT [facility] Refill Assessment Medication(s): Xtandi Patient's current medication list and adherence status to current therapy were reviewed by Specialty Pharmacy clinical pharmacist to identify any new drug interactions or non-compliance to therapy. Therapy continues to be appropriate for disease, patient response, and medical condition. Verification of therapeutic benefit and effectiveness with current therapy was completed. Adverse events, barriers in adherence, and side effects were assessed and addressed if applicable. Will proceed with refill with no changes in therapy - patient progressing towards achieving therapeutic goals based on medication- specific laboratory parameters, disease state markers and outcomes. Office/provider notes have been reviewed prior to dispensing the medication. Agronomist Assessment Patient confirmed: Yes Med/dose confirmed: Yes Supplies needed: No supplies needed Missed doses: No Estimated days supply on hand: 9 Copay amount: 0 Copay form of payment: (N/A) Payment confirmed: Yes Delivery method: FedEx Signature required: Waived on patient request Delivery address: [address] [place] [id number] Delivery date: 10/06/24 Questions or concerns for the pharmacist?: No Did you have any side effects believed to be related to this medication, that resulted in hospitalization?: No Current Outpatient Medications on File Prior to Visit Medication Sig tamsulosin (FLOMAX) 0.4 mg Take 1 capsule by mouth once daily. atorvastatin (LIPITOR) 40 mg tablet Take 40 mg by mouth once daily. clopidogrel (PLAVIX) 75 mg tablet Take 75 mg by mouth once daily. famotidine (PEPCID) 20 mg tablet Take 20 mg by mouth two times a day. acetaminophen (TYLENOL EXTRA STRENGTH) 500 mg tablet Take 500 mg by mouth every 8 hours as needed. enzalutamide (XTANDI) 40 mg capsule Take 4 capsules (160mg) by mouth once daily. pantoprazole DR (PROTONIX) 40 mg tablet Take 40 mg by mouth once daily. (Patient not taking: Reported on 07/02/2024) ufeunurrygf-igiknayzv-jurmdmms (TRELEGY ELLIPTA) 200-62.5-25 mcg inhalation powder Inhale 1 Puff asinstructed once daily. B-complex with vitamin C (SUPER B COMPLEX-VITAMIN C ORAL) Take 1 tablet by mouth once daily. triamcinolone acetonide (NASACORT AQ) 55 mcg nasal inhaler Use 2 Sprays in each nostril once daily. aspirin, enteric coated (ASPIRIN, ENTERIC COATED) 81 mg EC tablet Take 1 tablet by mouth once daily. hydroCHLOROthiazide (HYDRODIURIL, ESIDRIX) 12.5 mg tablet Take 12.5 mg by mouth once daily. (Patient not taking: Reported on 03/18/2023) iv contrast (will be provided with radiology test) CT Chest W -Inject, intravenously, once for 1 dose.No IV access, insert saline lock prior to the beginning of sedation, infusion, injection of imaging exam. Discontinue saline lock post exam. If Pt. has a central line or IVAD, may access for administration according to line specific nursing protocol. Once exam is complete flush line and de-accessaccording to line specific nursing protocol in the CT contrast administration guidelines link. docusate sodium (COLACE) 100 mg capsule Take 1 capsule by mouth twice daily as needed. (Patient nottaking: Reported on 07/02/2024) rosuvastatin (CRESTOR) 5 mg tablet Take 5 mg by mouth once daily. (Patient not taking: Reported on 07/02/2024) ramipril (ALTACE) 10 mg capsule Take 10 mg by mouth once daily. (Patient not taking: Reported on 07/02/2024) metoprolol tartrate, short acting, (LOPRESSOR) 25 mg tablet TAKE 1/2 (ONE-HALF) TABLET BY MOUTH TWICE DAILY calcium carbonate-vitamin D3 (OSCAL+D) 500 mg(1,250mg) -400 unit chewable tablet Take 1 tablet by mouth once daily. No current facility-administered medications on file prior to visit. [facility] CLINICAL ASSESSMENT - HEMATOLOGY ONCOLOGY V6: Assessment to use: Refill Date of influenza vaccination reminder: 05/03/2024 Date of most recent vaccination assessment: 05/03/2024 Treatment Plan Information: Dx: metastatic prostate cancer Tx Hx: bicalutamide, abiraterone/prednisone, enzalutamide (current) Tx Plan: continue Lupron and enzalutamide, switch to Taxotere if PSA does not improved in 3 months Medication: enzalutamide (Xtandi) 40mg tablet Dose: 160mg Sig: Take 4 capsules (160mg) by mouth once daily. Administration: same time each day, swallow whole Handling: hazardous, wash hands Storage: room temperature, protect from moisture - keep bottle tightly closed Warnings: CVD effects, fractures, posterior reversible encephalopathy syndrome (PRES), seizures Adverse reactions: HTN, hot flashes, fatigue, hyperglycemia, constipation/diarrhea, nausea, decrease appetite/weight loss DDI: none Monitoring: CBC, LFTs, INR if on warfarin, BP, BG Vaccinations: shingles, influenza, Covid #3, Tdap, pneumococcal, RSV Est. Tx Plan Start Date: No information available Estimated Start Date Info: Continue current treatment Est. Estimated Treatment Duration: Until disease progression or unacceptable toxicity [facility]ine [facility]averas [facility] NoteHNO ID: [id number] Author: YIN DESAI RPh Service: ? Author Type: ? Type: Progress Notes Filed: 10/04/2024 17:53 Note Text: [facility] Refill Assessment Medication(s): Xtandi Reviewed OV note on 09/24/24. Labs reviewed. Plan to continue Xtandi. PSA 19.45 (down from 24.91 on 06/23/24) Next clinic visit scheduled 12/17/24. ALLERGIES No Known Allergies Patient's current medication list and adherence status to current therapy were reviewed by Specialty Pharmacy clinical pharmacist to identify any new drug interactions or non-compliance to therapy. Therapy continues to be appropriate for disease, patient response, and medical condition. Verification of therapeutic benefit and effectiveness with current therapy was completed. Adverse events, barriers in adherence, and side effects were assessed and addressed if applicable. Will proceed with refill with no changes in therapy - patient progressing towards achieving therapeutic goals based on medication-specific laboratory parameters, disease state markers and outcomes. Office/provider notes have been reviewed prior to dispensing the medication. Yin Desai, YeimiD, BCOP Clinical Pharmacist, Oncology [facility] P: , F: Pool: P [facility] Pool #: [id number] Agronomist Assessment Patient confirmed: Yes Med/dose confirmed: Yes Supplies needed: No supplies needed Missed doses: No Estimated days supply on hand: 9 Copay amount: 0 Copay form of payment: (N/A) Payment confirmed: Yes Delivery method: FedEx Signature required: Waived on patient request Delivery address: [address] [place] [address] [place] [address] Delivery date: 10/06/24 Questions or concerns for the pharmacist?: No Did you have any side effects believed to be related to this medication, that resulted in hospitalization?: No Current Outpatient Medications on File Prior to Visit Medication Sig tamsulosin (FLOMAX) 0.4 mg Take 1 capsule by mouth once daily. atorvastatin (LIPITOR) 40 mg tablet Take 40 mg by mouth once daily. clopidogrel (PLAVIX) 75 mg tablet Take 75 mg by mouth once daily. famotidine (PEPCID) 20 mg tablet Take 20 mg by mouth two times a day. acetaminophen (TYLENOL EXTRA STRENGTH) 500 mg tablet Take 500 mg by mouth every 8 hours as needed. enzalutamide (XTANDI) 40 mg capsule Take 4 capsules (160mg) by mouth once daily. pantoprazole DR (PROTONIX) 40 mg tablet Take 40 mg by mouth once daily. (Patient not taking: Reported on 07/02/2024) zarwinvwslt-migfejdzs-fmrequvy (TRELEGY ELLIPTA) 200-62.5-25 mcg inhalation powder Inhale 1 Puff as instructed once daily. B-complex with vitamin C (SUPER B COMPLEX-VITAMIN C ORAL) Take 1 tablet by mouth once daily. triamcinolone acetonide (NASACORT AQ) 55 mcg nasal inhaler Use 2 Sprays in each nostril once daily. aspirin, enteric coated (ASPIRIN, ENTERIC COATED) 81 mg EC tablet Take 1 tablet by mouth once daily. hydroCHLOROthiazide (HYDRODIURIL, ESIDRIX) 12.5 mg tablet Take 12.5 mg by mouth once daily. (Patient not taking: Reported on 03/18/2023) iv contrast (will be provided with radiology test) CT Chest W -Inject, intravenously, once for 1 dose.No IV access, insert saline lock prior to the beginning of sedation, infusion, injection of imaging exam. Discontinue saline lock post exam. If Pt. has a central line or IVAD, may access for administration according to line specific nursing protocol. Once exam is complete flush line and de-access according to line specific nursing protocol in the CT contrast administration guidelines link. docusate sodium (COLACE) 100 mg capsule Take 1 capsule by mouth twice daily as needed. (Patient not taking: Reported on 07/02/2024) rosuvastatin (CRESTOR) 5 mg tablet Take 5 mg by mouth once daily. (Patient not taking: Reported on 07/02/2024) ramipril (ALTACE) 10 mg capsule Take 10 mg by mouth once daily. (Patient not taking: Reported on 07/02/2024) metoprolol tartrate, short acting, (LOPRESSOR) 25 mg tablet TAKE 1/2 (ONE-HALF) TABLET BY MOUTH TWICE DAILY calcium carbonate-vitamin D3 (OSCAL+D) 500 mg(1,250mg) -400 unit chewable tablet Take 1 tablet by mouth once daily. No current facility-administered medications on file prior to visit. [facility] CLINICAL ASSESSMENT - HEMATOLOGY ONCOLOGY V6: Ivent complete: No Assessment to use: Refill Lab monitoring inclusive of CBC, Chem-7, and other labs as pertinent for therapy: Yes Chemo cycle timing assessment: N/A Assessment of injection issues: N/A Current medication list (including drug interaction assessment): Yes Experience of adverse reactions to the medication: Yes Date of influenza vaccination reminder: 05/03/2024 Date of most recent vaccination assessment: 05/03/2024 Treatment Plan Information: Dx: metastatic prostate cancer Tx Hx: bicalutamide, abiraterone/prednisone, enzalutamide (current) Tx Plan: continue Lupron and enzalutamide, swit (more content not included)... [facility]07-23-2025 NoteHNO ID: [id number] Author: JACK PEARSON MD Service: ? Author Type: Physician Type: Progress Notes Filed: 09/29/2024 11:14 Note Text: I have communicated my name and active licensure. The patient's identity and physical location were verified at the time of this visit. Either the patient or their legal business services sales representative has been informed of the risks and benefits of -- and alternatives to -- treatment through a remote evaluation and consents to proceed with the evaluation remotely. Mehul Nagy is a 74 year old male. Metastatic prostate cancer with bone metastasis s/p palliative radiation treatment to the right sacrum/acetabulum finished on 08/30/24. He is doing well without any specific new complaints. He denies any nausea or diarrhea. He reports good energy. He saw Dr. Guy last week and PSA on 09/17/24 decreased to 19.45 from 24.91. Assessment AND Plan Prostate cancer metastatic to bone (HCC) Radiotherapy follow-up He tolerate radiation treatment well without any significant acute treatment complications. He had initial PSA response to radiation treatment. He is regularly followed with Dr. Guy and I will see her as needed. Visit was conducted via Audio-only Provider Location: [facility] Patient Location: Patient Home or Place of Residence 007}[facility]07-23-2025 History of Present illness Narrative* Jack Pearson MD - 09/29/2024 11:03 AM EDT I have communicated my name and active licensure. The patient's identity and physical location wereverified at the time of this visit. Either the patient or their legal business services sales representative has been informed of the risks and benefits of -- and alternatives to -- treatment through a remote evaluation andconsents to proceed with the evaluation remotely. Mehul Nagy is a 74 year old male. Metastatic prostate cancer with bone metastasis s/p palliative radiation treatment to the right sacrum/acetabulum finished on 08/30/24. He is doing well without any specific new complaints. He denies any nausea or diarrhea. He reports good energy. He saw Dr. Guy last week and PSA on 09/17/24 decreased to 19.45 from 24.91. Assessment & Plan Prostate cancer metastatic to bone (HCC) Radiotherapy follow-up He tolerate radiation treatment well without any significant acute treatment complications. He had initial PSA response to radiation treatment. He is regularly followed with Dr. Guy and I willsee her as needed. Visit was conducted via Audio-only Provider Location: [facility] Patient Location: Patient Home or Place of Residence 007} [facility]-2025 NoteHNO ID: [id number] Author: LUIS MIGUEL GUY MD Service: ? Author Type: Physician Type: Progress Notes Filed: 09/24/2024 13:01 Note Text: (Elements copied from my note dated August 06, 2024, have been reviewed and updated where appropriate, and all reflect current assessment and medical decision making from today's encounter, September 24, 2024) HISTORY OF PRESENT ILLNESS: Salo Nagy is a 72 year old male dx prostate cancer 2018 on basis of back pain found bone lesions, PSA >3000 at that time. Prostate biopsy at that time showed adenocarcinoma. Started lupron and zytiga after casodex blockade. PSA responded well, PSA tripled in fall of 2022 Switched to xtandi, delay in starting due to obtaining med. Guardant was negative for actionable mutation. PSA, rising, DT < 3 months Recent open heart surgery for CABG, slowly recovering with cardiac rehab. Here for follow up, PSMA PET 07-27-24, diffuse sclerotic lesions but 2 intensely avid lesions of pelvis. Reviewed with Dr Pearson, agrees RT to pelvis lesions is reasonable RT to bone lesions 08-16 to 08-30-24. Feels well. PSA down a bit. CLINICAL IMPRESSION: Prostate cancer metastatic to bone. Prior bone scan (2019) noted diffuse lesions, but PSMA shows 2 intensely avid pelvis lesions. PSA climbing rate increased, oligometastatic lesions (at least likely more contributory to PSA increase) RECOMMENDATION/PLAN: 1. continue lupron enzalutamide. 2. Follow PSA Written and verbal health teaching given to patient, patient verbalizes understanding and agrees with treatment plan. PAST MEDICAL HISTORY Diagnosis Date Aneurysm of infrarenal abdominal aorta Bone metastases 07/24/2018 CVA (cerebral vascular accident) (HCC) 09/07/2018 Elevated LFTs 04/15/2022 Essential hypertension 09/07/2018 History of CVA (cerebrovascular accident) Malignant neoplasm of prostate (HCC) 07/10/2018 Panlobular emphysema (HCC) 09/07/2018 PAST SURGICAL HISTORY Procedure Laterality Date CYSTOSCOPY 01/09/2018 TRURL ELECTROSURG RESCJ PROSTATE BLEED COMPLETE FAMILY HISTORY Problem Relation Age of Onset Thyroid Mother Breast Cancer Mother Heart Father Heart Brother Aneurysm No Family History Social History Tobacco Use Smoking status: Former Current packs/day: 0.00 Average packs/day: 1 pack/day for 45.0 years (45.0 ttl pk-yrs) Types: Cigarettes Start date: 04/18/1974 Quit date: 04/18/2019 Years since quittin.4 Smokeless tobacco: Never Vaping Use Vaping status: Never Used Substance Use Topics Alcohol use: Never Drug use: Never ALLERGIES: ALLERGIES No Known Allergies CURRENT OUTPATIENT MEDICATIONS: tamsulosin (FLOMAX) 0.4 mg Take 1 capsule by mouth once daily. atorvastatin (LIPITOR) 40 mg tablet Take 40 mg by mouth once daily. clopidogrel (PLAVIX) 75 mg tablet Take 75 mg by mouth once daily. famotidine (PEPCID) 20 mg tablet Take 20 mg by mouth two times a day. acetaminophen (TYLENOL EXTRA STRENGTH) 500 mg tablet Take 500 mg by mouth every 8 hours as needed. enzalutamide (XTANDI) 40 mg capsule Take 4 capsules (160mg) by mouth once daily. icxkqqezewi-acndzvxru-baqkfepn (TRELEGY ELLIPTA) 200-62.5-25 mcg inhalation powder Inhale 1 Puff as instructed once daily. B-complex with vitamin C (SUPER B COMPLEX-VITAMIN C ORAL) Take 1 tablet by mouth once daily. triamcinolone acetonide (NASACORT AQ) 55 mcg nasal inhaler Use 2 Sprays in each nostril once daily. aspirin, enteric coated (ASPIRIN, ENTERIC COATED) 81 mg EC tablet Take 1 tablet by mouth once daily. metoprolol tartrate, short acting, (LOPRESSOR) 25 mg tablet TAKE 1/2 (ONE-HALF) TABLET BY MOUTH TWICE DAILY calcium carbonate-vitamin D3 (OSCAL+D) 500 mg(1,250mg) -400 unit chewable tablet Take 1 tablet by mouth once daily. pantoprazole DR (PROTONIX) 40 mg tablet Take 40 mg by mouth once daily. (Patient not taking: Reported on 07/02/2024) hydroCHLOROthiazide (HYDRODIURIL, ESIDRIX) 12.5 mg tablet Take 12.5 mg by mouth once daily. (Patient not taking: Reported on 03/18/2023) iv contrast (will be provided with radiology test) CT Chest W -Inject, intravenously, once for 1 dose.No IV access, insert saline lock prior to the beginning of sedation, infusion, injection of imaging exam. Discontinue saline lock post exam. If Pt. has a central line or IVAD, may access for administration according to line specific nursing protocol. Once exam is complete flush line and de-access according to line specific nursing protocol in the CT contrast administration guidelines link. docusate sodium (COLACE) 100 mg capsule Take 1 capsule by mouth twice daily as needed. (Patient not taking: Reported on 07/02/2024) rosuvastatin (CRESTOR) 5 mg tablet Take 5 mg by mouth once daily. (Patient not taking: Reported on 07/02/2024) ramipril (ALTACE) 10 mg capsule Take 10 mg by mouth once daily. (Patient not taking: Reported on 07/02/2024) REVIEW OF SYSTEMS: GENERAL: No fever, night sweats, weight loss or ma (more content not included)...[facility]07-18-2025 History of Present illness Narrative* Luis Miguel Guy MD - 09/24/2024 11:26 AM EDT (Elements copied from my note dated August 06, 2024, have been reviewed and updated where appropriate,and all reflect current assessment and medical decision making from today's encounter, September 24, 2024) HISTORY OF PRESENT ILLNESS: Salo Nagy is a 72 year old male dx prostate cancer 2018 on basis of back pain found bone lesions, PSA >3000 at that time. Prostate biopsy at that time showed adenocarcinoma. Started lupron and zytiga after casodex blockade. PSA responded well, PSA tripled in fall Switched to xtandi, delay in starting due to obtaining med. Guardant was negative for actionable mutation. PSA, rising, DT < 3 months Recent open heart surgery for CABG, slowly recovering with cardiac rehab. Here for follow up, PSMA PET 07-27-24, diffuse sclerotic lesions but 2 intensely avid lesions of pelvis. Reviewed with Dr Pearson, agrees RT to pelvis lesions is reasonable RT to bone lesions 08-16 to 08-30-24. Feels well. PSA down a bit. CLINICAL IMPRESSION: Prostate cancer metastatic to bone. Prior bone scan (2019) noted diffuse lesions, but PSMA shows 2 intensely avid pelvis lesions. PSA climbing rate increased, oligometastatic lesions (at least likely more contributory to PSA increase) RECOMMENDATION/PLAN: 1. continue lupron enzalutamide. 2. Follow PSA Written and verbal health teaching given to patient, patient verbalizes understanding and agrees with treatment plan. PAST MEDICAL HISTORY Diagnosis Date Aneurysm of infrarenal abdominal aorta Bone metastases 07/24/2018 CVA (cerebral vascular accident) (HCC) 09/07/2018 Elevated LFTs 04/15/2022 Essential hypertension 09/07/2018 History of CVA (cerebrovascular accident) Malignant neoplasm of prostate (HCC) 07/10/2018 Panlobular emphysema (HCC) 09/07/2018 PAST SURGICAL HISTORY Procedure Laterality Date CYSTOSCOPY 01/09/2018 TRURL ELECTROSURG RESCJ PROSTATE BLEED COMPLETE FAMILY HISTORY Problem Relation Age of Onset Thyroid Mother Breast Cancer Mother Heart Father Heart Brother Aneurysm No Family History Social History Tobacco Use Smoking status: Former Current packs/day: 0.00 Average packs/day: 1 pack/day for 45.0 years (45.0 ttl pk-yrs) Types: Cigarettes Start date: 04/18/1974 Quit date: 04/18/2019 Years since quittin.4 Smokeless tobacco: Never Vaping Use Vaping status: Never Used Substance Use Topics Alcohol use: Never Drug use: Never ALLERGIES: ALLERGIES No Known Allergies CURRENT OUTPATIENT MEDICATIONS: tamsulosin (FLOMAX) 0.4 mg Take 1 capsule by mouth once daily. atorvastatin (LIPITOR) 40 mg tablet Take 40 mg by mouth once daily. clopidogrel (PLAVIX) 75 mg tablet Take 75 mg by mouth once daily. famotidine (PEPCID) 20 mg tablet Take 20 mg by mouth two times a day. acetaminophen (TYLENOL EXTRA STRENGTH) 500 mg tablet Take 500 mg by mouth every 8 hours as needed. enzalutamide (XTANDI) 40 mg capsule Take 4 capsules (160mg) by mouth once daily. sruifuwudih-jyeyssgcn-ilggvrxb (TRELEGY ELLIPTA) 200-62.5-25 mcg inhalation powder Inhale 1 Puff asinstructed once daily. B-complex with vitamin C (SUPER B COMPLEX-VITAMIN C ORAL) Take 1 tablet by mouth once daily. triamcinolone acetonide (NASACORT AQ) 55 mcg nasal inhaler Use 2 Sprays in each nostril once daily. aspirin, enteric coated (ASPIRIN, ENTERIC COATED) 81 mg EC tablet Take 1 tablet by mouth once daily. metoprolol tartrate, short acting, (LOPRESSOR) 25 mg tablet TAKE 1/2 (ONE-HALF) TABLET BY MOUTH TWICE DAILY calcium carbonate-vitamin D3 (OSCAL+D) 500 mg(1,250mg) -400 unit chewable tablet Take 1 tablet by mouth once daily. pantoprazole DR (PROTONIX) 40 mg tablet Take 40 mg by mouth once daily. (Patient not taking: Reported on 07/02/2024) hydroCHLOROthiazide (HYDRODIURIL, ESIDRIX) 12.5 mg tablet Take 12.5 mg by mouth once daily. (Patient not taking: Reported on 03/18/2023) iv contrast (will be provided with radiology test) CT Chest W -Inject, intravenously, once for 1 dose.No IV access, insert saline lock prior to the beginning of sedation, infusion, injection of imaging exam. Discontinue saline lock post exam. If Pt. has a central line or IVAD, may access for administration according to line specific nursing protocol. Once exam is complete flush line and de-accessaccording to line specific nursing protocol in the CT contrast administration guidelines link. docusate sodium (COLACE) 100 mg capsule Take 1 capsule by mouth twice daily as needed. (Patient nottaking: Reported on 07/02/2024) rosuvastatin (CRESTOR) 5 mg tablet Take 5 mg by mouth once daily. (Patient not taking: Reported on 07/02/2024) ramipril (ALTACE) 10 mg capsule Take 10 mg by mouth once daily. (Patient not taking: Reported on 07/02/2024) REVIEW OF SYSTEMS: GENERAL: No fever, night sweats, weight loss or malaise. All other reviewed and negative other than HPI. PHYSICAL EXAMINATION: VITAL SIGNS: BP 153/78 Pulse 64 Temp (Src) 97.1 (Temporal) Wt 212 lb (96.2kg) SpO2 95% GENERAL APPEARANCE: Well appearing, in no acute distress, alert and oriented x3, well-hydrated, well nourished. I spent a total of 30 minutes on the date of the service which included preparing to see the patient, ogyc-fr-yvnz patient care, completing clinical documentation, obtaining and/or reviewing separately obtained history, counseling and educating the patient/family/caregiver, ordering medications, neleima ts, or procedures, independently interpreting results (not separately reported), and communicating results to the patient/family/caregiver. Also review with Dr Pearson Electronically Signed: Luis Miguel Guy MD September 24, 2024 documented in this encounterVeterans Health Administration07-07-2025 Telephone encounter Note * Telephone Encounter - Alaina Espino - 09/13/2024 8:23 AM EDT Patient has been identified by name and date of : Yes Last office visit in this department: Visit date not found RX INSTRUCTIONS: Patient aware RX will be sent to pharmacy. No need to notify patient. Patient phones requesting refills as follows: Requested Prescriptions Pending Prescriptions Disp Refills tamsulosin (FLOMAX) 0.4 mg 90 capsule 0 Sig: Take 1 capsule by mouth once daily. Please review and advise. Alaina Rodrigues [facility]07-07-2025 Miscellaneous Notes* Telephone Encounter - Alaina Espino - 09/13/2024 8:23 AM EDT Patient has been identified by name and date of : Yes Last office visit in this department: Visit date not found RX INSTRUCTIONS: Patient aware RX will be sent to pharmacy. No need to notify patient. Patient phones requesting refills as follows: Requested Prescriptions Pending Prescriptions Disp Refills tamsulosin (FLOMAX) 0.4 mg 90 capsule 0 Sig: Take 1 capsule by mouth once daily. Please review and advise. Alaina Rodrigues documented in this encounterVeterans Health Administration06-25-2025 History of Present illness Narrative* Janine Taveras - 09/01/2024 10:10 AM EDT [facility] Refill Assessment Medication(s): Xtandi Patient's current medication list and adherence status to current therapy were reviewed by Specialty Pharmacy clinical pharmacist to identify any new drug interactions or non-compliance to therapy. Therapy continues to be appropriate for disease, patient response, and medical condition. Verification of therapeutic benefit and effectiveness with current therapy was completed. Adverse events, barriers in adherence, and side effects were assessed and addressed if applicable. Will proceed with refill with no changes in therapy - patient progressing towards achieving therapeutic goals based on medication- specific laboratory parameters, disease state markers and outcomes. Office/provider notes have been reviewed prior to dispensing the medication. Agronomist Assessment Patient confirmed: Yes Med/dose confirmed: Yes Supplies needed: No supplies needed Missed doses: No Estimated days supply on hand: 9 Copay amount: 0 Copay form of payment: (N/A) Payment confirmed: Yes Delivery method: FedEx Signature required: Waived on patient request Delivery address: [address] [place] [address] Delivery date: 09/07/24 Questions or concerns for the pharmacist?: No Did you have any side effects believed to be related to this medication, that resulted in hospitalization?: No Current Outpatient Medications on File Prior to Visit Medication Sig atorvastatin (LIPITOR) 40 mg tablet Take 40 mg by mouth once daily. clopidogrel (PLAVIX) 75 mg tablet Take 75 mg by mouth once daily. famotidine (PEPCID) 20 mg tablet Take 20 mg by mouth two times a day. acetaminophen (TYLENOL EXTRA STRENGTH) 500 mg tablet Take 500 mg by mouth every 8 hours as needed. tamsulosin (FLOMAX) 0.4 mg Take 1 capsule by mouth once daily enzalutamide (XTANDI) 40 mg capsule Take 4 capsules (160mg) by mouth once daily. pantoprazole DR (PROTONIX) 40 mg tablet Take 40 mg by mouth once daily. (Patient not taking: Reported on 07/02/2024) nkrpqnxxdgz-xfjwqyowv-iizpffey (TRELEGY ELLIPTA) 200-62.5-25 mcg inhalation powder Inhale 1 Puff asinstructed once daily. B-complex with vitamin C (SUPER B COMPLEX-VITAMIN C ORAL) Take 1 tablet by mouth once daily. triamcinolone acetonide (NASACORT AQ) 55 mcg nasal inhaler Use 2 Sprays in each nostril once daily. aspirin, enteric coated (ASPIRIN, ENTERIC COATED) 81 mg EC tablet Take 1 tablet by mouth once daily. hydroCHLOROthiazide (HYDRODIURIL, ESIDRIX) 12.5 mg tablet Take 12.5 mg by mouth once daily. (Patient not taking: Reported on 03/18/2023) iv contrast (will be provided with radiology test) CT Chest W -Inject, intravenously, once for 1 dose.No IV access, insert saline lock prior to the beginning of sedation, infusion, injection of imaging exam. Discontinue saline lock post exam. If Pt. has a central line or IVAD, may access for administration according to line specific nursing protocol. Once exam is complete flush line and de-accessaccording to line specific nursing protocol in the CT contrast administration guidelines link. docusate sodium (COLACE) 100 mg capsule Take 1 capsule by mouth twice daily as needed. (Patient nottaking: Reported on 07/02/2024) rosuvastatin (CRESTOR) 5 mg tablet Take 5 mg by mouth once daily. (Patient not taking: Reported on 07/02/2024) ramipril (ALTACE) 10 mg capsule Take 10 mg by mouth once daily. (Patient not taking: Reported on 07/02/2024) metoprolol tartrate, short acting, (LOPRESSOR) 25 mg tablet TAKE 1/2 (ONE-HALF) TABLET BY MOUTH TWICE DAILY calcium carbonate-vitamin D3 (OSCAL+D) 500 mg(1,250mg) -400 unit chewable tablet Take 1 tablet by mouth once daily. No current facility-administered medications on file prior to visit. [facility] RX SPECIALTY CLINICAL ASSESSMENT - HEMATOLOGY ONCOLOGY V6: Assessment to use: Refill Date of influenza vaccination reminder: 05/03/2024 Date of most recent vaccination assessment: 05/03/2024 Treatment Plan Information: Dx: metastatic prostate cancer Tx Hx: bicalutamide, abiraterone/prednisone, enzalutamide (current) Tx Plan: continue Lupron and enzalutamide, switch to Taxotere if PSA does not improved in 3 months Medication: enzalutamide (Xtandi) 40mg tablet Dose: 160mg Sig: Take 4 capsules (160mg) by mouth once daily. Administration: same time each day, swallow whole Handling: hazardous, wash hands Storage: room temperature, protect from moisture - keep bottle tightly closed Warnings: CVD effects, fractures, posterior reversible encephalopathy syndrome (PRES), seizures Adverse reactions: HTN, hot flashes, fatigue, hyperglycemia, constipation/diarrhea, nausea, decrease appetite/weight loss DDI: none Monitoring: CBC, LFTs, INR if on warfarin, BP, BG Vaccinations: shingles, influenza, Covid #3, Tdap, pneumococcal, RSV Est. Tx Plan Start Date: No information available Estimated Start Date Info: Continue current treatment Est. Estimated Treatment Duration: Until disease progression or unacceptable toxicity Janine Taveras documented in [place] encounterRe[place] [id number] NoteHNO ID: [id number] Author: YI PACE RPh Service: ? Author Type: ? Type: Progress Notes Filed: 09/06/2024 08:19 Note Text: [facility] Specialty Refill Assessment Medication(s): Xtandi No new clinical information to review since last SPP refill encounter. Next OV scheduled 09/24/24. ALLERGIES No Known Allergies Patient's current medication list and adherence status to current therapy were reviewed by Specialty Pharmacy clinical pharmacist to identify any new drug interactions or non-compliance to therapy. Therapy continues to be appropriate for disease, patient response, and medical condition. Verification of therapeutic benefit and effectiveness with current therapy was completed. Adverse events, barriers in adherence, and side effects were assessed and addressed if applicable. Will proceed with refill with no changes in therapy - patient progressing towards achieving therapeutic goals based on medication-specific laboratory parameters, disease state markers and outcomes. Office/provider notes have been reviewed prior to dispensing the medication. Yi Pace, PharmD Clinical Pharmacist, Oncology [facility] P: , F: Pool: P [facility] ONCOLOG[facility] Pool #: [id number] Agronomist Assessment Patient confirmed: Yes Med/dose confirmed: Yes Supplies needed: No supplies needed Missed doses: No Estimated days supply on hand: 9 Copay amount: 0 Copay form of payment: (N/A) Payment confirmed: Yes Delivery method: FedEx Signature required: Waived on patient request Delivery address: [address] [place] [address] Delivery date: 09/07/24 Questions or concerns for the pharmacist?: No Did you have any side effects believed to be related to this medication, that resulted in hospitalization?: No Current Outpatient Medications on File Prior to Visit Medication Sig atorvastatin (LIPITOR) 40 mg tablet Take 40 mg by mouth once daily. clopidogrel (PLAVIX) 75 mg tablet Take 75 mg by mouth once daily. famotidine (PEPCID) 20 mg tablet Take 20 mg by mouth two times a day. acetaminophen (TYLENOL EXTRA STRENGTH) 500 mg tablet Take 500 mg by mouth every 8 hours as needed. tamsulosin (FLOMAX) 0.4 mg Take 1 capsule by mouth once daily enzalutamide (XTANDI) 40 mg capsule Take 4 capsules (160mg) by mouth once daily. pantoprazole DR (PROTONIX) 40 mg tablet Take 40 mg by mouth once daily. (Patient not taking: Reported on 07/02/2024) cqoskmlfyxl-qkxihleuz-axbpzytp (TRELEGY ELLIPTA) 200-62.5-25 mcg inhalation powder Inhale 1 Puff as instructed once daily. B-complex with vitamin C (SUPER B COMPLEX-VITAMIN C ORAL) Take 1 tablet by mouth once daily. triamcinolone acetonide (NASACORT AQ) 55 mcg nasal inhaler Use 2 Sprays in each nostril once daily. aspirin, enteric coated (ASPIRIN, ENTERIC COATED) 81 mg EC tablet Take 1 tablet by mouth once daily. hydroCHLOROthiazide (HYDRODIURIL, ESIDRIX) 12.5 mg tablet Take 12.5 mg by mouth once daily. (Patient not taking: Reported on 03/18/2023) iv contrast (will be provided with radiology test) CT Chest W -Inject, intravenously, once for 1 dose.No IV access, insert saline lock prior to the beginning of sedation, infusion, injection of imaging exam. Discontinue saline lock post exam. If Pt. has a central line or IVAD, may access for administration according to line specific nursing protocol. Once exam is complete flush line and de-access according to line specific nursing protocol in the CT contrast administration guidelines link. docusate sodium (COLACE) 100 mg capsule Take 1 capsule by mouth twice daily as needed. (Patient not taking: Reported on 07/02/2024) rosuvastatin (CRESTOR) 5 mg tablet Take 5 mg by mouth once daily. (Patient not taking: Reported on 07/02/2024) ramipril (ALTACE) 10 mg capsule Take 10 mg by mouth once daily. (Patient not taking: Reported on 07/02/2024) metoprolol tartrate, short acting, (LOPRESSOR) 25 mg tablet TAKE 1/2 (ONE-HALF) TABLET BY MOUTH TWICE DAILY calcium carbonate-vitamin D3 (OSCAL+D) 500 mg(1,250mg) -400 unit chewable tablet Take 1 tablet by mouth once daily. No current facility-administered medications on file prior to visit. [facility] RX SPECIALTY CLINICAL ASSESSMENT - HEMATOLOGY ONCOLOGY V6: Ivent complete: No Assessment to use: Refill Lab monitoring inclusive of CBC, Chem-7, and other labs as pertinent for therapy: Yes Chemo cycle timing assessment: N/A Assessment of injection issues: N/A Current medication list (including drug interaction assessment): Yes Experience of adverse reactions to the medication: Yes Date of influenza vaccination reminder: 05/03/2024 Date of most recent vaccination assessment: 05/03/2024 Treatment Plan Information: Dx: metastatic prostate cancer Tx Hx: bicalutamide, abiraterone/prednisone, enzalutamide (current) Tx Plan: continue Lupron and enzalutamide, switch to Taxotere if PSA does not improved in 3 months Medi (more content not included)...[facility]06-23-2025 NoteHNO ID: [id number] Author: OPHELIA CARLOS RN Service: ? Author Type: Registered Nurse Type: Progress Notes Filed: 08/30/2024 12:51 Note Text: Written discharge instructions given and reviewed with patient. Patient verbalizes understanding. Encouraged to call with any questions or concerns. Instruction for 4 week phone call follow up appointment given by Dr. Pearson. [facility]06-23-2025 History of Present illness Narrative* Ophelia Carlos RN - 08/30/2024 12:51 PM EDT Written discharge instructions given and reviewed with patient. Patient verbalizes understanding. Encouraged to call with any questions or concerns. Instruction for 4 week phone call follow up appointment given by Dr. Pearson. documented in this encounterVeterans Health Administration06-23-2025 History of Present illness Narrative* Jack Pearson MD - 08/30/2024 12:00 AM EDT SALO NAGY [id number] : 1950 08/30/2024 [facility] Department of Radiation Oncology RADIATION ONCOLOGY - COMPLETION NOTE DATE OF SIMULATION: 08/11/24 DATES OF TREATMENT: 08/16/24 - 08/30/24 UNIT: W_TRUEBEAM AREA TREATED: Right sacrum/acetabulum DISEASE: Metastatic prostate cancer with bone metastasis. DELIVERED DOSE: 3000 cGy in 10 fractions treating to the 99.3% isodose line with 15 MV and 3 wang. ELAPSED TIME: 14 days. TOLERANCE/ RESPONSE: He is doing well without any specific new complaints. REMARKS: He tolerated radiation treatment well. Four week follow-up with me. Staff Physician JACK PEARSON M.D. / :09 PM Electronically Signed cc: HARSH Camargo [address] [place] [address] Luis Miguel Guy [address] [facility] [address] documented in this encounterVeterans Health Administration06-23-2025 NoteHNO ID: [id number] Author: JACK PEARSON MD Service: Radiation Oncology Author Type: Physician Type: Progress Notes Filed: 09/02/2024 14:09 Note Text: SALO NAGY [id number] : 1950 08/30/2024 [facility] Department of Radiation Oncology RADIATION ONCOLOGY - COMPLETION NOTE DATE OF SIMULATION: 08/11/24 DATES OF TREATMENT: 08/16/24 - 08/30/24 UNIT: W_TRUEBEAM AREA TREATED: Right sacrum/acetabulum DISEASE: Metastatic prostate cancer with bone metastasis. DELIVERED DOSE: 3000 cGy in 10 fractions treating to the 99.3% isodose line with 15 MV and 3 wang. ELAPSED TIME: 14 days. TOLERANCE/ RESPONSE: He is doing well without any specific new complaints. REMARKS: He tolerated radiation treatment well. Four week follow-up with me. Staff Physician JACK PEARSON M.D. / :09 PM Electronically Signed cc: HARSH Camargo [address] [place] [address] Luis Miguel Guy [address] [facility] [id number]06-[facility]-20[facility] NoteEducation (RADTWS) SALO NAGY ([id number]) 1950 M Date Time Provider Department 08/30/24 JACK PEARSON RODRIGO Reason for Visit: Patient Education [91] During your visit today, we recorded the following information about you: Allergies As of Date: 08/30/2024 (No Known Allergies) Date Reviewed: 08/24/2024 Reviewed by: Rossy Juarez RN - Fully Assessed Prescriptions as of 08/30/2024 - atorvastatin (LIPITOR) 40 mg tablet Take 40 mg by mouth once daily. - clopidogrel (PLAVIX) 75 mg tablet Take 75 mg by mouth once daily. - famotidine (PEPCID) 20 mg tablet Take 20 mg by mouth two times a day. - acetaminophen (TYLENOL EXTRA STRENGTH) 500 mg tablet Take 500 mg by mouth every 8 hours as needed. - tamsulosin (FLOMAX) 0.4 mg Take 1 capsule by mouth once daily - enzalutamide (XTANDI) 40 mg capsule Take 4 capsules (160mg) by mouth once daily. - pantoprazole DR (PROTONIX) 40 mg tablet Take 40 mg by mouth once daily. - kyandavhnbu-vmwqentdd-qucfpzly (TRELEGY ELLIPTA) 200-62.5-25 mcg inhalation powder Inhale 1 Puff as instructed once daily. - B-complex with vitamin C (SUPER B COMPLEX-VITAMIN C ORAL) Take 1 tablet by mouth once daily. - triamcinolone acetonide (NASACORT AQ) 55 mcg nasal inhaler Use 2 Sprays in each nostril once daily. - aspirin, enteric coated (ASPIRIN, ENTERIC COATED) 81 mg EC tablet Take 1 tablet by mouth once daily. - hydroCHLOROthiazide (HYDRODIURIL, ESIDRIX) 12.5 mg tablet Take 12.5 mg by mouth once daily. - iv contrast (will be provided with radiology test) CT Chest W -Inject, intravenously, once for 1 dose.No IV access, insert saline lock prior to the beginning of sedation, infusion, injection of imaging exam. Discontinue saline lock post exam. If Pt. has a central line or IVAD, may access for administration according to line specific nursing protocol. Once exam is complete flush line and de-access according to line specific nursing protocol in the CT contrast administration guidelines link. - docusate sodium (COLACE) 100 mg capsule Take 1 capsule by mouth twice daily as needed. - rosuvastatin (CRESTOR) 5 mg tablet Take 5 mg by mouth once daily. - ramipril (ALTACE) 10 mg capsule Take 10 mg by mouth once daily. - metoprolol tartrate, short acting, (LOPRESSOR) 25 mg tablet TAKE 1/2 (ONE-HALF) TABLET BY MOUTH TWICE DAILY - calcium carbonate-vitamin D3 (OSCAL+D) 500 mg(1,250mg) -400 unit chewable tablet Take 1 tablet by mouth once daily. Encounter Status:Closed by OPHELIA CARLOS on 08/30/24[facility] 08-25-[facility]24 Telephone encounter Note* Telephone Encounter - Tanja Patel LISW - 08/25/2024 11:13 AM EDT SOCIAL WORK FOLLOW UP NOTE: [facility] Date of service: August 25, 2024 Salo Nagy is being seen for a follow up social work visit. Today's visit includes: spouse TOPICS ADDRESSED: SW notified by RN that pt's would like to speak to SW. SW called and left a detailed voicemail with SW's direct callback, will await return call from pt's . PLAN: Continue follow up as needed F/U APPOINTMENT: PRN Assigned SW listed in Care Team tab: Yes HIRA Hassan-Salas [facility]06-18-2025 Miscellaneous Notes* Telephone Encounter - Tanja Patel LISW - 08/25/2024 11:13 AM EDT SOCIAL WORK FOLLOW UP NOTE: [facility] Date of service: August 25, 2024 Salo Nagy is being seen for a follow up social work visit. Today's visit includes: spouse TOPICS ADDRESSED: SW notified by RN that pt's would like to speak to SW. SW called and left a detailed voicemail with SW's direct callback, will await return call from pt's . PLAN: Continue follow up as needed F/U APPOINTMENT: PRN Assigned SW listed in Care Team tab: Yes OMID Hassan documented in this encounterVeterans Health Administration06-17-2025 NoteHNO ID: [id number] Author: ROSSY JUAREZ RN Service: ? Author Type: Registered Nurse Type: Progress Notes Filed: 08/24/2024 14:02 Note Text: Radiation Therapy - Nursing Note (OTV) PATIENT NAME: Salo Nagy PATIENT August 24, 2024 [facility] FACILITY/LOCATION: [facility] NOTE TYPE: GENERAL Subjective Data Everything going well bedsides yesterday. I didn't get radiation with the machine being down. Additional Data Do you want to see a Die Cutting Machine Operator? No Status: Patient is male Stress Scale: On a scale of 0 to 10, what number best describes how much distress you have experienced in the past week?(0 being no distress and 10 being extreme distress) 0 Social work notified: yes Nursing Assessment Fatigue: increased fatigue over baseline but not altering normal activities Appetite: good Nutritional Intake: Regular oral intake. Weight Gain/Loss: Not applicable Ambulatory weight history: Last 6 Encounter Wt Readings: Date: Wt: 08/09/2024 95.7 kg (211 lb) 08/06/2024 96.8 kg (213 lb 8 oz) 07/02/2024 94.3 kg (208 lb) 02/18/2024 101.2 kg (223 lb) 11/26/2023 99.8 kg (220 lb) 09/03/2023 99.1 kg (218 lb 8 oz) Nausea:None Vomiting: None Bowel Function: normal bowel movements Erythema/Hyperpigmentation:none Desquamation:none Rash:none Skin Care: None Skin Sensation: Within Normal Limits Focused Assessment GENERAL: No additional assessment areas noted. Increased numbness/ tingling in bilateral hands SIGNED by: Rossy Juarez [facility]NMercy [facility]06-[facility]25 History of Present illness Narrative* Rossy Juarez RN - 08/24/2024 1:46 PM EDT Radiation Therapy - Nursing Note (OTV) PATIENT NAME: Salo Nagy PATIENT August 24, 2024 [facility] FACILITY/LOCATION: [facility] NOTE TYPE: GENERAL Subjective Data Everything going well bedsides yesterday. I didn't get radiation with the machine being down. Additional Data Do you want to see a Die Cutting Machine Operator? No Status: Patient is male Stress Scale: On a scale of 0 to 10, what number best describes how much distress you have experienced in the past week?(0 being no distress and 10 being extreme distress) 0 Social work notified: yes Nursing Assessment Fatigue: increased fatigue over baseline but not altering normal activities Appetite: good Nutritional Intake: Regular oral intake. Weight Gain/Loss: Not applicable Ambulatory weight history: Last 6 Encounter Wt Readings: Date: Wt: 08/09/2024 95.7 kg (211 lb) 08/06/2024 96.8 kg (213 lb 8 oz) 07/02/2024 94.3 kg (208 lb) 02/18/2024 101.2 kg (223 lb) 11/26/2023 99.8 kg (220 lb) 09/03/2023 99.1 kg (218 lb 8 oz) Nausea:None Vomiting: None Bowel Function: normal bowel movements Erythema/Hyperpigmentation:none Desquamation:none Rash:none Skin Care: None Skin Sensation: Within Normal Limits Focused Assessment GENERAL: No additional assessment areas noted. Increased numbness/ tingling in bilateral hands SIGNED by: Rossy Juarez RN * Jack Pearson MD - 08/24/2024 1:44 PM EDT Radiation Oncology - On Treatment Review (OTR) Note PATIENT NAME: Salo Nagy PATIENT DIAGNOSIS: Metastatic prostate cancer with bone metastasis. COURSE: palliative AREA TREATED: R sacrum/acetabulum CURRENT DOSE: 1800 cGy in 6 fx PLANNED DOSE: 3000 cGy in 10 fx SUBJECTIVE: He is doing well without any specific new complaints. EXAM: KPS: 90 General Appearance: Alert and oriented. No acute distress. IMAGING/LAB RESULTS: None Treatment chart checked: Yes Patient treatment site reviewed and verified:Yes Port films reviewed and current:Yes Medications started: None ASSESSMENT/PLAN: Clinically stable. Toxicity within expected parameters. Continue radiation treatment as planned. Jack Pearson MD documented in this encounterVeterans Health Administration06-17-2025 NoteHNO ID: [id number] Author: JACK PEARSON MD Service: ? Author Type: Physician Type: Progress Notes Filed: 08/24/2024 14:02 Note Text: Radiation Oncology - On Treatment Review (OTR) Note PATIENT NAME: Salo Nagy PATIENT DIAGNOSIS: Metastatic prostate cancer with bone metastasis. COURSE: palliative AREA TREATED: R sacrum/acetabulum CURRENT DOSE: 1800 cGy in 6 fx PLANNED DOSE: 3000 cGy in 10 fx SUBJECTIVE: He is doing well without any specific new complaints. EXAM: KPS: 90 General Appearance: Alert and oriented. No acute distress. IMAGING/LAB RESULTS: None Treatment chart checked: Yes Patient treatment site reviewed and verified:Yes Port films reviewed and current:Yes Medications started: None ASSESSMENT/PLAN: Clinically stable. Toxicity within expected parameters. Continue radiation treatment as planned. Jack Pearson [facility]06-10-2025 NoteHNO ID: [id number] Author: JACK PEARSON MD Service: ? Author Type: Physician Type: Progress Notes Filed: 08/17/2024 14:27 Note Text: Radiation Oncology - On Treatment Review (OTR) Note PATIENT NAME: Salo Nagy PATIENT DIAGNOSIS: Metastatic prostate cancer with bone metastasis. COURSE: palliative AREA TREATED: R sacrum/acetabulum CURRENT DOSE: 600 cGy in 2 fx PLANNED DOSE: 3000 cGy in 10 fx SUBJECTIVE: He is doing well without any specific new complaints. He feels that his right lower back/pelvis pain may be worse. He takes Tylenol as needed. EXAM: KPS: 90 General Appearance: Alert and oriented. No acute distress. IMAGING/LAB RESULTS: None Treatment chart checked: Yes Patient treatment site reviewed and verified:Yes Port films reviewed and current:Yes Medications started: None ASSESSMENT/PLAN: Clinically stable. Toxicity within expected parameters. Continue radiation treatment as planned. Jack Pearson [facility]06-10-2025 History of Present illness Narrative* Jack Pearson MD - 08/17/2024 1:57 PM EDT Radiation Oncology - On Treatment Review (OTR) Note PATIENT NAME: Salo Nagy PATIENT DIAGNOSIS: Metastatic prostate cancer with bone metastasis. COURSE: palliative AREA TREATED: R sacrum/acetabulum CURRENT DOSE: 600 cGy in 2 fx PLANNED DOSE: 3000 cGy in 10 fx SUBJECTIVE: He is doing well without any specific new complaints. He feels that his right lower back/pelvis pain may be worse. He takes Tylenol as needed. EXAM: KPS: 90 General Appearance: Alert and oriented. No acute distress. IMAGING/LAB RESULTS: None Treatment chart checked: Yes Patient treatment site reviewed and verified:Yes Port films reviewed and current:Yes Medications started: None ASSESSMENT/PLAN: Clinically stable. Toxicity within expected parameters. Continue radiation treatment as planned. Jack Pearson MD * Ophelia Carlos RN - 08/17/2024 1:55 PM EDT Radiation Therapy - Nursing Note (OTV) PATIENT NAME: Salo Nagy PATIENT August 17, 2024 [facility] FACILITY/LOCATION: [place] NURSING NOTE TYPE: GENERAL Subjective Data no new complaints Additional Data Do you want to see a Die Cutting Machine Operator? No Status: Patient is male Stress Scale: On a scale of 0 to 10, what number best describes how much distress you have experienced in the past week?(0 being no distress and 10 being extreme distress) 1 Social work notified: Pt denied need to see case management social worker at this time. Nursing Assessment Fatigue: none Appetite: good Nutritional Intake: Regular oral intake. Weight Gain/Loss: Not applicable Ambulatory weight history: Last 6 Encounter Wt Readings: Date: Wt: 08/09/2024 95.7 kg (211 lb) 08/06/2024 96.8 kg (213 lb 8 oz) 07/02/2024 94.3 kg (208 lb) 02/18/2024 101.2 kg (223 lb) 11/26/2023 99.8 kg (220 lb) 09/03/2023 99.1 kg (218 lb 8 oz) Nausea:None Vomiting: None Bowel Function: normal bowel movements Erythema/Hyperpigmentation:none Desquamation:none Rash:none Skin Care: Aquaphor Skin Sensation: Within Normal Limits Focused Assessment right sacrum/acetabulium: denies bladder complaints SIGNED by: Ophelia Carlos RN documented in this encounterVeterans Health Administration06-10-2025 NoteHNO ID: [id number] Author: OPHELIA CARLOS RN Service: ? Author Type: Registered Nurse Type: Progress Notes Filed: 08/17/2024 14:27 Note Text: Radiation Therapy - Nursing Note (OTV) PATIENT NAME: Salo Nagy PATIENT August 17, 2024 [facility] FACILITY/LOCATION: [facility] NOTE TYPE: GENERAL Subjective Data no new complaints Additional Data Do you want to see a Die Cutting Machine Operator? No Status: Patient is male Stress Scale: On a scale of 0 to 10, what number best describes how much distress you have experienced in the past week?(0 being no distress and 10 being extreme distress) 1 Social work notified: Pt denied need to see case management social worker at this time. Nursing Assessment Fatigue: none Appetite: good Nutritional Intake: Regular oral intake. Weight Gain/Loss: Not applicable Ambulatory weight history: Last 6 Encounter Wt Readings: Date: Wt: 08/09/2024 95.7 kg (211 lb) 08/06/2024 96.8 kg (213 lb 8 oz) 07/02/2024 94.3 kg (208 lb) 02/18/2024 101.2 kg (223 lb) 11/26/2023 99.8 kg (220 lb) 09/03/2023 99.1 kg (218 lb 8 oz) Nausea:None Vomiting: None Bowel Function: normal bowel movements Erythema/Hyperpigmentation:none Desquamation:none Rash:none Skin Care: Aquaphor Skin Sensation: Within Normal Limits Focused Assessment right sacrum/acetabulium: denies bladder complaints SIGNED by: Ophelia Carlos [facility]06-04-2025 NoteHNO ID: [id number] Author: OPHELIA CARLOS RN Service: ? Author Type: Registered Nurse Type: Progress Notes Filed: 08/11/2024 11:29 Note Text: Radiation Therapy - Patient Education Note PATIENT NAME: Salo Nagy PATIENT August 11, 2024 [facility] FACILITY/LOCATION: [place] READINESS TO LEARN Cognitive Ability: Alert and oriented Motivation to learn: Eager Family Support: High - Very involved in pt care Instruction provide to: Patient and Spouse Patient learns best by: Individual Instruction Written Instruction - Hand-outs Verbal Instruction Factors effecting learning: None Physical limitations effecting learning: None LEARNING RESPONSE Diagnosis: Pt simulated today for radiation therapy to pelvis. Education Topic/Teaching Points: Radiation therapy, Side effects, and OTV: Method of instruction: Teach Back skin care Individual instruction Written instruction/Handouts Verbal instruction Patient /Family response: Patient and family verbalized understanding of radiation treatments, side effects, OTV, and transportation. Follow-up plan: Complete - No need for follow-up Contact information given. Supplemental material: Informational handouts on Bladder function, Diarrhea, Fatigue, and Skin changes. Referral (recommendation): None, Pt denied need for social work, van service, and telecommunications professional. Patient has an Onbody or Implanted device: No Signed by: Ophelia Carlos [facility]NM[facility]06-04-2025 History of Present illness Narrative* Ophelia Carlos RN - 08/11/2024 11:27 AM EDT Radiation Therapy - Patient Education Note PATIENT NAME: Salo Nagy PATIENT August 11, 2024 [facility] FACILITY/LOCATION: [place] READINESS TO LEARN Cognitive Ability: Alert and oriented Motivation to learn: Eager Family Support: High - Very involved in pt care Instruction provide to: Patient and Spouse Patient learns best by: Individual Instruction Written Instruction - Hand-outs Verbal Instruction Factors effecting learning: None Physical limitations effecting learning: None LEARNING RESPONSE Diagnosis: Pt simulated today for radiation therapy to pelvis. Education Topic/Teaching Points: Radiation therapy, Side effects, and OTV: Method of instruction: Teach Back skin care Individual instruction Written instruction/Handouts Verbal instruction Patient /Family response: Patient and family verbalized understanding of radiation treatments, sideeffects, OTV, and transportation. Follow-up plan: Complete - No need for follow-up Contact information given. Supplemental material: Informational handouts on Bladder function, Diarrhea, Fatigue, and Skin changes. Referral (recommendation): None, Pt denied need for social work, van service, and telecommunications professional. Patient has an Onbody or Implanted device: No Signed by: Ophelia Carlos RN documented in this encounterVeterans Health Administration06-04-2025 History of Present illness Narrative* Jack Pearson MD - 08/11/2024 12:00 AM EDT SALO NAGY [id number] 08/11/2024 [facility] Department of Radiation Oncology [facility] RADIATION ONCOLOGY SIMULATION NOTE DATE OF SIMULATION: 08/11/2024 MACHINE: [employer] Definition CT Simulator Diagnosis: Metastatic prostate cancer with bone metastasis. AREA:Right sacrum/acetabulum PATIENT POSITION: Supine. CONTRAST: None PROTOCOL: None BLOCKING: Custom blocking to be determined at treatment planning. FIXATION DEVICE: In order to achieve accurate and reproducible treatments, the patient is to be immobilized with vac bag. PROCEDURE: A time-out was conducted and recorded by the therapist. Patient was simulated on the CT scanner for external beam radiation therapy. Treatment site was marked by the simulation therapist. ASSESSMENT/PLAN: Patient tolerated simulation procedure well. Treatments will be initiated after treatment planning. The patient is scheduled for a verification simulation on the treatment machine toensure proper set-up and field arrangement is correct prior to the first treatment of primary and boost wang if applicable. Electronically Signed Jack Pearson M.D./avril 58:53 AM documented in this encounterVeterans Health Administration06-04-2025 History of Present illness Narrative* Jack Pearson MD - 08/11/2024 12:00 AM EDT SALO NAGY [id number] 08/11/2024 [facility] - Department of Radiation Oncology Treatment Planning Note For reasons stated in the consult note, Salo Nagy is a candidate for radiation therapy. Based onreview and interpretation of the relevant diagnostic studies together with the exam findings, Salo Nagy was simulated on 08/11/2024 at which time the target volume and/or requisite wang were delineated, as indicated in the simulation note, to be treated according to the prescription. After reviewing the treatment plan with dosimetry Using the fused PET , the plan was approved to deliver the prescribed course of radiation to the target area to allow for the best isodose distribution, treating to the 99.3% isodose line with 15 MV and 3 wang. Custom MLC wedges asym jaws were thetreatment device(s) used to shape/modify the beams. A completed summary of this plan dated 08/13/2024 incorporated herein by reference includes dose, beam arrangements, energy, blocking, isodose distribution, and/or ports and DVH. Electronically Signed Jack Pearson M.D. 59:44 AM documented in this encounterVeterans Health Administration06-04-2025 NoteHNO ID: [id number] Author: JACK PEARSON MD Service: Radiation Oncology Author Type: Physician Type: Progress Notes Filed: 08/16/2024 08:53 Note Text: SALO NAGY [id number] 08/11/2024 [facility] Department of Radiation Oncology [facility] RADIATION ONCOLOGY SIMULATION NOTE DATE OF SIMULATION: 08/11/2024 MACHINE: [employer] Definition CT Simulator Diagnosis: Metastatic prostate cancer with bone metastasis. AREA:Right sacrum/acetabulum PATIENT POSITION: Supine. CONTRAST: None PROTOCOL: None BLOCKING: Custom blocking to be determined at treatment planning. FIXATION DEVICE: In order to achieve accurate and reproducible treatments, the patient is to be immobilized with vac bag. PROCEDURE: A time-out was conducted and recorded by the therapist. Patient was simulated on the CT scanner for external beam radiation therapy. Treatment site was marked by the simulation therapist. ASSESSMENT/PLAN: Patient tolerated simulation procedure well. Treatments will be initiated after treatment planning. The patient is scheduled for a verification simulation on the treatment machine to ensure proper set-up and field arrangement is correct prior to the first treatment of primary and boost wang if applicable. Electronically Signed Jack Pearson M.D./dw 58:53 [facility]06-04-2025 NoteHNO ID: [id number] Author: JACK PEARSON MD Service: Radiation Oncology Author Type: Physician Type: Progress Notes Filed: 08/13/2024 09:44 Note Text: SALO NAGY [id number] 08/11/2024 [facility] - Department of Radiation Oncology Treatment Planning Note For reasons stated in the consult note, Salo Nagy is a candidate for radiation therapy. Based on review and interpretation of the relevant diagnostic studies together with the exam findings, Salo Nagy was simulated on 08/11/2024 at which time the target volume and/or requisite wang were delineated, as indicated in the simulation note, to be treated according to the prescription. After reviewing the treatment plan with dosimetry Using the fused PET , the plan was approved to deliver the prescribed course of radiation to the target area to allow for the best isodose distribution, treating to the 99.3% isodose line with 15 MV and 3 wang. Custom MLC wedges asym jaws were the treatment device(s) used to shape/modify the beams. A completed summary of this plan dated 08/13/2024 incorporated herein by reference includes dose, beam arrangements, energy, blocking, isodose distribution, and/or ports and DVH. Electronically Signed Jack Pearson M.D. 59:44 [facility]06-02-2025 NoteHNO ID: [id number] Author: JACK PEARSON MD Service: ? Author Type: Physician Type: Progress Notes Filed: 08/10/2024 11:50 Note Text: Radiation Oncology - New Patient/Consult Note PATIENT NAME: Salo Nagy PATIENT REQUESTING PROVIDER: Dr. Luis Miguel Guy DIAGNOSIS: Metastatic prostate cancer with bone metastasis. HPI: 74 year old male who presents with above diagnosis, for an opinion regarding the role of radiation therapy in the management of the patient's disease. Final recommendations will be communicated back to the requesting physician by way of the shared medical record, or letter to requesting physician via US mail. 74 year old man who was diagnosed with metastatic prostate cancer in 2018 when he presented with back pain and PSA >3000 at that time. Prostate biopsy on 07/28/18 showed prostate adenocarcinoma with Denny score 7 (4+3). Bone scan on 06/24/19 showed widespread lesions in the bone suspicious for metastatic disease. He was started on ADT with lupron and zytiga after casodex blockade. He had biochemical progression in 2022 and was started on xtandi. PSA started to increase a year ago and most recent PSA was 24.91 on 06/23/24. It increased from 0.72 on 12/23/22. PET/CT scan on 07/28/24 showed diffuse sclerotic osseous metastasis with 2 lesions demonstrating intense PSMA expression in the right sacral ala, SUV max 79, and the right posterior acetabulum, SUV max 56.2. He had pain in the right pelvis. ALLERGIES No Known Allergies Current Outpatient Medications on File Prior to Visit Medication Sig atorvastatin (LIPITOR) 40 mg tablet Take 40 mg by mouth once daily. clopidogrel (PLAVIX) 75 mg tablet Take 75 mg by mouth once daily. famotidine (PEPCID) 20 mg tablet Take 20 mg by mouth two times a day. acetaminophen (TYLENOL EXTRA STRENGTH) 500 mg tablet Take 500 mg by mouth every 8 hours as needed. tamsulosin (FLOMAX) 0.4 mg Take 1 capsule by mouth once daily enzalutamide (XTANDI) 40 mg capsule Take 4 capsules (160mg) by mouth once daily. nyqyiwnymvp-pyqdlbvnt-knvdnoxu (TRELEGY ELLIPTA) 200-62.5-25 mcg inhalation powder Inhale 1 Puff as instructed once daily. B-complex with vitamin C (SUPER B COMPLEX-VITAMIN C ORAL) Take 1 tablet by mouth once daily. triamcinolone acetonide (NASACORT AQ) 55 mcg nasal inhaler Use 2 Sprays in each nostril once daily. aspirin, enteric coated (ASPIRIN, ENTERIC COATED) 81 mg EC tablet Take 1 tablet by mouth once daily. metoprolol tartrate, short acting, (LOPRESSOR) 25 mg tablet TAKE 1/2 (ONE-HALF) TABLET BY MOUTH TWICE DAILY calcium carbonate-vitamin D3 (OSCAL+D) 500 mg(1,250mg) -400 unit chewable tablet Take 1 tablet by mouth once daily. pantoprazole DR (PROTONIX) 40 mg tablet Take 40 mg by mouth once daily. (Patient not taking: Reported on 07/02/2024) hydroCHLOROthiazide (HYDRODIURIL, ESIDRIX) 12.5 mg tablet Take 12.5 mg by mouth once daily. (Patient not taking: Reported on 03/18/2023) iv contrast (will be provided with radiology test) CT Chest W -Inject, intravenously, once for 1 dose.No IV access, insert saline lock prior to the beginning of sedation, infusion, injection of imaging exam. Discontinue saline lock post exam. If Pt. has a central line or IVAD, may access for administration according to line specific nursing protocol. Once exam is complete flush line and de-access according to line specific nursing protocol in the CT contrast administration guidelines link. docusate sodium (COLACE) 100 mg capsule Take 1 capsule by mouth twice daily as needed. (Patient not taking: Reported on 07/02/2024) rosuvastatin (CRESTOR) 5 mg tablet Take 5 mg by mouth once daily. (Patient not taking: Reported on 07/02/2024) ramipril (ALTACE) 10 mg capsule Take 10 mg by mouth once daily. (Patient not taking: Reported on 07/02/2024) No current facility-administered medications on file prior to visit. PAST MEDICAL HISTORY Diagnosis Date Aneurysm of infrarenal abdominal aorta Bone metastases 07/24/2018 CVA (cerebral vascular accident) (HCC) 09/07/2018 Elevated LFTs 04/15/2022 Essential hypertension 09/07/2018 History of CVA (cerebrovascular accident) Malignant neoplasm of prostate (HCC) 07/10/2018 Panlobular emphysema (HCC) 09/07/2018 Prior radiation therapy, collagen vascular disease, or inflammatory bowel disease: No Any implanted or external electric devices? No PAST SURGICAL HISTORY Procedure Laterality Date CYSTOSCOPY 01/09/2018 TRURL ELECTROSURG RESCJ PROSTATE BLEED COMPLETE FAMILY HISTORY Problem Relation Age of Onset Thyroid Mother Breast Cancer Mother Heart Father Heart Brother Aneurysm No Family History Social History Tobacco Use Smoking status: Former Current packs/day: 0.00 Average packs/day: 1 pack/day for 45.0 years (45.0 ttl pk-yrs) Types: Cigarettes Start date: 04/18/1974 Quit date: 04/18/2019 Years since quittin.3 Smokeless tobacco: Never Vaping Use Vaping status: Ne (more content not included)...[facility] 08-09-2024 History of Present illness Narrative* Jack Pearson MD - 08/09/2024 9:32 AM EDT Radiation Oncology - New Patient/Consult Note PATIENT NAME: Salo Nagy PATIENT REQUESTING PROVIDER: Dr. Luis Miguel Guy DIAGNOSIS: Metastatic prostate cancer with bone metastasis. HPI: 74 year old male who presents with above diagnosis, for an opinion regarding the role of radiation therapy in the management of the patient's disease. Final recommendations will be communicated back to the requesting physician by way of the shared medical record, or letter to requesting physician via [place] mail. 74 year old man who was diagnosed with metastatic prostate cancer in 2019 when he presented with back pain and PSA >3000 at that time. Prostate biopsy on 07/28/18 showed prostate adenocarcinoma with [place] score 7 (4+3). Bone scan on 06/24/19 showed widespread lesions in the bone suspicious for metastatic disease. He was started on ADT with lupron and zytiga after casodex blockade. He had biochemical progressionin 2022 and was started on xtandi. PSA started to increase a year ago and most recent PSA was 24.91on 06/23/24. It increased from 0.72 on 12/23/22. PET/CT scan on 07/28/24 showed diffuse sclerotic osseous metastasis with 2 lesions demonstrating intense PSMA expression in the right sacral ala, SUV max 79, and the right posterior acetabulum, SUV max 56.2. He had pain in the right pelvis. ALLERGIES No Known Allergies Current Outpatient Medications on File Prior to Visit Medication Sig atorvastatin (LIPITOR) 40 mg tablet Take 40 mg by mouth once daily. clopidogrel (PLAVIX) 75 mg tablet Take 75 mg by mouth once daily. famotidine (PEPCID) 20 mg tablet Take 20 mg by mouth two times a day. acetaminophen (TYLENOL EXTRA STRENGTH) 500 mg tablet Take 500 mg by mouth every 8 hours as needed. tamsulosin (FLOMAX) 0.4 mg Take 1 capsule by mouth once daily enzalutamide (XTANDI) 40 mg capsule Take 4 capsules (160mg) by mouth once daily. oelniilfeij-xwfaitiib-iejtmppj (TRELEGY ELLIPTA) 200-62.5-25 mcg inhalation powder Inhale 1 Puff asinstructed once daily. B-complex with vitamin C (SUPER B COMPLEX-VITAMIN C ORAL) Take 1 tablet by mouth once daily. triamcinolone acetonide (NASACORT AQ) 55 mcg nasal inhaler Use 2 Sprays in each nostril once daily. aspirin, enteric coated (ASPIRIN, ENTERIC COATED) 81 mg EC tablet Take 1 tablet by mouth once daily. metoprolol tartrate, short acting, (LOPRESSOR) 25 mg tablet TAKE 1/2 (ONE-HALF) TABLET BY MOUTH TWICE DAILY calcium carbonate-vitamin D3 (OSCAL+D) 500 mg(1,250mg) -400 unit chewable tablet Take 1 tablet by mouth once daily. pantoprazole DR (PROTONIX) 40 mg tablet Take 40 mg by mouth once daily. (Patient not taking: Reported on 07/02/2024) hydroCHLOROthiazide (HYDRODIURIL, ESIDRIX) 12.5 mg tablet Take 12.5 mg by mouth once daily. (Patient not taking: Reported on 03/18/2023) iv contrast (will be provided with radiology test) CT Chest W -Inject, intravenously, once for 1 dose.No IV access, insert saline lock prior to the beginning of sedation, infusion, injection of imaging exam. Discontinue saline lock post exam. If Pt. has a central line or IVAD, may access for administration according to line specific nursing protocol. Once exam is complete flush line and de-accessaccording to line specific nursing protocol in the CT contrast administration guidelines link. docusate sodium (COLACE) 100 mg capsule Take 1 capsule by mouth twice daily as needed. (Patient nottaking: Reported on 07/02/2024) rosuvastatin (CRESTOR) 5 mg tablet Take 5 mg by mouth once daily. (Patient not taking: Reported on 07/02/2024) ramipril (ALTACE) 10 mg capsule Take 10 mg by mouth once daily. (Patient not taking: Reported on 07/02/2024) No current facility-administered medications on file prior to visit. PAST MEDICAL HISTORY Diagnosis Date Aneurysm of infrarenal abdominal aorta Bone metastases 07/24/2018 CVA (cerebral vascular accident) (HCC) 09/07/2018 Elevated LFTs 04/15/2022 Essential hypertension 09/07/2018 History of CVA (cerebrovascular accident) Malignant neoplasm of prostate (HCC) 07/10/2018 Panlobular emphysema (HCC) 09/07/2018 Prior radiation therapy, collagen vascular disease, or inflammatory bowel disease: No Any implanted or external electric devices? No PAST SURGICAL HISTORY Procedure Laterality Date CYSTOSCOPY 01/09/2018 TRURL ELECTROSURG RESCJ PROSTATE BLEED COMPLETE FAMILY HISTORY Problem Relation Age of Onset Thyroid Mother Breast Cancer Mother Heart Father Heart Brother Aneurysm No Family History Social History Tobacco Use Smoking status: Former Current packs/day: 0.00 Average packs/day: 1 pack/day for 45.0 years (45.0 ttl pk-yrs) Types: Cigarettes Start date: 04/18/1974 Quit date: 04/18/2019 Years since quittin.3 Smokeless tobacco: Never Vaping Use Vaping status: Never Used Substance Use Topics Alcohol use: Never Drug use: Never COMPLETE REVIEW OF SYSTEMS: GENERAL: feeling well without fatigue, no recent change in weight HEENT: denies MOE, change in hearing or vision, no other ENT complaints NECK: denies swelling or pain in neck RESPIRATORY: chronic shortness of breath CARDIOVASCULAR: s/p CABG in 04/2024 GI: normal appetite, tolerating PO well, BMs normal, and no abdominal pain : slow stream MUSCULOSKELETAL: denies any painful or swollen joints, no muscle aches SKIN: no rash HEMATOLOGY/LYMPHOLOGY: negative for prolonged bleeding, no swollen lymph nodes NEURO: chronic numbness/tingling in hands/feet attributed to medications. PHYSICAL EXAM: VS: BP 145/82 Pulse 70 Temp 36.1 C (97 F) (Temporal) Resp 14 Wt 95.7 kg (211 lb) SpO2 93% BMI 30.21 kg/m KPS: 90 General Appearance: Alert and oriented. No acute distress. HEENT: NCAT. Sclera anicteric. EOMI. Neck: Normal ROM. Chest: No respiratory distress. Musculoskeletal: Normal ROM in extremities. Neuro: Speech fluent. Gait normal. No focal deficits. Hematologic: No signs of active bleeding. RADIOLOGY/LABORATORY DATA: see HPI ASSESSMENT AND PLAN: 74 year old man with metastatic prostate cancer with bone metastasis. He now has increasing PSA on hormonal therapy and recent PSMA PET scan showed quite intense activity in the right sacral ala, SUV max 79, and the right posterior acetabulum, SUV max 56.2. He had painin the right pelvis. I recommend palliative radiation treatment to those two areas. I explained the rationale, benefits, alternative management options and potential complications of radiation treatment to the patient and he understands and agrees to proceed. It was explained and understood that other personnel such as radiation therapists, thermograph operator, and physicists will participate in planning and delivery of radiation treatment. Permanent tattoo calhoun will be placed to aid with positioning for daily treatment and the patient consented. Patient will have a simulation procedure within a week. Thank you very much for allowing us to participate in his care. Signed by: Jack Pearson MD cc: Silverio Bolivar, [facility] [address] [place] [address] Luis Miguel Guy [address] [facility] [id number] * Joleen Canales RN - 08/09/2024 9:31 AM EDT Radiation Therapy - Nursing Note (Consult) PATIENT NAME: Salo Nagy PATIENT August 09, 2024 [facility] FACILITY/LOCATION: [place] Chief Complaint: consult Reason for visit: Consult. Referring physician: Internal provider Dr Guy Subjective Data: no complaints Additional Data Do you want to see a Die Cutting Machine Operator? No Are you interested in information about fertility? No Status: Patient is male Stress Scale: On a scale of 0 to 10, what number best describes how much distress you have experienced in the past week?(0 being no distress and 10 being extreme distress) 1 Social work notified: no SIGNED by: Joleen Canales RN documented in this encounterVeterans Health Administration06-02-2025 NoteHNO ID: [id number] Author: JOLEEN CANALES RN Service: ? Author Type: Registered Nurse Type: Progress Notes Filed: 08/10/2024 11:50 Note Text: Radiation Therapy - Nursing Note (Consult) PATIENT NAME: Salo Nagy PATIENT August 09, 2024 [facility] FACILITY/LOCATION: [place] Chief Complaint: consult Reason for visit: Consult. Referring physician: Internal provider Dr Guy Subjective Data: no complaints Additional Data Do you want to see a Die Cutting Machine Operator? No Are you interested in information about fertility? No Status: Patient is male Stress Scale: On a scale of 0 to 10, what number best describes how much distress you have experienced in the past week?(0 being no distress and 10 being extreme distress) 1 Social work notified: no SIGNED by: Joleen Canales [facility] NoteHNO ID: [id number] Author: LUIS MIGUEL GUY MD Service: ? Author Type: Physician Type: Progress Notes Filed: 08/06/2024 12:45 Note Text: (Elements copied from my note dated July 02, 2024, have been reviewed and updated where appropriate, and all reflect current assessment and medical decision making from today's encounter, August 06, 2024) HISTORY OF PRESENT ILLNESS: Salo Nagy is a 72 year old male dx prostate cancer 2018 on basis of back pain found bone lesions, PSA >3000 at that time. Prostate biopsy at that time showed adenocarcinoma. Started lupron and zytiga after casodex blockade. PSA responded well, PSA tripled in fall Switched to xtandi, delay in starting due to obtaining med. Guardant was negative for actionable mutation. PSA, rising, DT < 3 months Recent open heart surgery for CABG, slowly recovering with cardiac rehab. Here for follow up, PSMA PET 07-27-24, diffuse sclerotic lesions but 2 intensely avid lesions of pelvis. Reviewed with Dr Pearson, agrees RT to pelvis lesions is reasonable CLINICAL IMPRESSION: Prostate cancer metastatic to bone. Prior bone scan (2019) noted diffuse lesions, but PSMA shows 2 intensely avid pelvis lesions. PSA climbing rate increased, oligometastatic lesions (at least likely more contributory to PSA increase) RECOMMENDATION/PLAN: 1. continue lupron enzalutamide. 2. RT to pelvis lesions 3. Follow PSA Written and verbal health teaching given to patient, patient verbalizes understanding and agrees with treatment plan. PAST MEDICAL HISTORY Diagnosis Date Aneurysm of infrarenal abdominal aorta Bone metastases 07/24/2018 CVA (cerebral vascular accident) (HCC) 09/07/2018 Elevated LFTs 04/15/2022 Essential hypertension 09/07/2018 History of CVA (cerebrovascular accident) Malignant neoplasm of prostate (HCC) 07/10/2018 Panlobular emphysema (HCC) 09/07/2018 PAST SURGICAL HISTORY Procedure Laterality Date CYSTOSCOPY 01/09/2018 TRURL ELECTROSURG RESCJ PROSTATE BLEED COMPLETE FAMILY HISTORY Problem Relation Age of Onset Thyroid Mother Breast Cancer Mother Heart Father Heart Brother Aneurysm No Family History Social History Tobacco Use Smoking status: Former Current packs/day: 0.00 Average packs/day: 1 pack/day for 45.0 years (45.0 ttl pk-yrs) Types: Cigarettes Start date: 04/18/1974 Quit date: 04/18/2019 Years since quittin.3 Smokeless tobacco: Never Vaping Use Vaping status: Never Used Substance Use Topics Alcohol use: Never Drug use: Never ALLERGIES: ALLERGIES No Known Allergies CURRENT OUTPATIENT MEDICATIONS: atorvastatin (LIPITOR) 40 mg tablet Take 40 mg by mouth once daily. clopidogrel (PLAVIX) 75 mg tablet Take 75 mg by mouth once daily. famotidine (PEPCID) 20 mg tablet Take 20 mg by mouth two times a day. acetaminophen (TYLENOL EXTRA STRENGTH) 500 mg tablet Take 500 mg by mouth every 8 hours as needed. tamsulosin (FLOMAX) 0.4 mg Take 1 capsule by mouth once daily enzalutamide (XTANDI) 40 mg capsule Take 4 capsules (160mg) by mouth once daily. bfozabhmqbr-ededseaeg-brhvdcer (TRELEGY ELLIPTA) 200-62.5-25 mcg inhalation powder Inhale 1 Puff as instructed once daily. B-complex with vitamin C (SUPER B COMPLEX-VITAMIN C ORAL) Take 1 tablet by mouth once daily. triamcinolone acetonide (NASACORT AQ) 55 mcg nasal inhaler Use 2 Sprays in each nostril once daily. aspirin, enteric coated (ASPIRIN, ENTERIC COATED) 81 mg EC tablet Take 1 tablet by mouth once daily. metoprolol tartrate, short acting, (LOPRESSOR) 25 mg tablet TAKE 1/2 (ONE-HALF) TABLET BY MOUTH TWICE DAILY calcium carbonate-vitamin D3 (OSCAL+D) 500 mg(1,250mg) -400 unit chewable tablet Take 1 tablet by mouth once daily. pantoprazole DR (PROTONIX) 40 mg tablet Take 40 mg by mouth once daily. (Patient not taking: Reported on 07/02/2024) hydroCHLOROthiazide (HYDRODIURIL, ESIDRIX) 12.5 mg tablet Take 12.5 mg by mouth once daily. (Patient not taking: Reported on 03/18/2023) iv contrast (will be provided with radiology test) CT Chest W -Inject, intravenously, once for 1 dose.No IV access, insert saline lock prior to the beginning of sedation, infusion, injection of imaging exam. Discontinue saline lock post exam. If Pt. has a central line or IVAD, may access for administration according to line specific nursing protocol. Once exam is complete flush line and de-access according to line specific nursing protocol in the CT contrast administration guidelines link. docusate sodium (COLACE) 100 mg capsule Take 1 capsule by mouth twice daily as needed. (Patient not taking: Reported on 07/02/2024) rosuvastatin (CRESTOR) 5 mg tablet Take 5 mg by mouth once daily. (Patient not taking: Reported on 07/02/2024) ramipril (ALTACE) 10 mg capsule Take 10 mg by mouth once daily. (Patient not taking: Reported on 07/02/2024) REVIEW OF SYSTEMS: GENERAL: No fever, night sweats, weight loss or malaise. All other reviewed and negative ot (more content not included)...[facility]05-30-[facility]25 History of Present illness Narrative* Luis Miguel Guy MD - 08/06/2024 12:41 PM EDT (Elements copied from my note dated July 02, 2024, have been reviewed and updated where appropriate, and all reflect current assessment and medical decision making from today's encounter, August 06, 2024) HISTORY OF PRESENT ILLNESS: Salo Nagy is a 72 year old male dx prostate cancer 2019 on basis of back pain found bone lesions, PSA >3000 at that time. Prostate biopsy at that time showed adenocarcinoma. Started lupron and zytiga after casodex blockade. PSA responded well, PSA tripled in fall 2022 Switched to xtandi, delay in starting due to obtaining med. Guardant was negative for actionable mutation. PSA, rising, DT < 3 months Recent open heart surgery for CABG, slowly recovering with cardiac rehab. Here for follow up, PSMA PET 07-27-24, diffuse sclerotic lesions but 2 intensely avid lesions of pelvis. Reviewed with Dr Pearson, agrees RT to pelvis lesions is reasonable CLINICAL IMPRESSION: Prostate cancer metastatic to bone. Prior bone scan (2019) noted diffuse lesions, but PSMA shows 2 intensely avid pelvis lesions. PSA climbing rate increased, oligometastatic lesions (at least likely more contributory to PSA increase) RECOMMENDATION/PLAN: 1. continue lupron enzalutamide. 2. RT to pelvis lesions 3. Follow PSA Written and verbal health teaching given to patient, patient verbalizes understanding and agrees with treatment plan. PAST MEDICAL HISTORY Diagnosis Date Aneurysm of infrarenal abdominal aorta Bone metastases 07/24/2018 CVA (cerebral vascular accident) (HCC) 09/07/2018 Elevated LFTs 04/15/2022 Essential hypertension 09/07/2018 History of CVA (cerebrovascular accident) Malignant neoplasm of prostate (HCC) 07/10/2018 Panlobular emphysema (HCC) 09/07/2018 PAST SURGICAL HISTORY Procedure Laterality Date CYSTOSCOPY 01/09/2018 TRURL ELECTROSURG RESCJ PROSTATE BLEED COMPLETE FAMILY HISTORY Problem Relation Age of Onset Thyroid Mother Breast Cancer Mother Heart Father Heart Brother Aneurysm No Family History Social History Tobacco Use Smoking status: Former Current packs/day: 0.00 Average packs/day: 1 pack/day for 45.0 years (45.0 ttl pk-yrs) Types: Cigarettes Start date: 04/18/1974 Quit date: 04/18/2019 Years since quittin.3 Smokeless tobacco: Never Vaping Use Vaping status: Never Used Substance Use Topics Alcohol use: Never Drug use: Never ALLERGIES: ALLERGIES No Known Allergies CURRENT OUTPATIENT MEDICATIONS: atorvastatin (LIPITOR) 40 mg tablet Take 40 mg by mouth once daily. clopidogrel (PLAVIX) 75 mg tablet Take 75 mg by mouth once daily. famotidine (PEPCID) 20 mg tablet Take 20 mg by mouth two times a day. acetaminophen (TYLENOL EXTRA STRENGTH) 500 mg tablet Take 500 mg by mouth every 8 hours as needed. tamsulosin (FLOMAX) 0.4 mg Take 1 capsule by mouth once daily enzalutamide (XTANDI) 40 mg capsule Take 4 capsules (160mg) by mouth once daily. zsbuskabkat-wriryturp-jtcixrhv (TRELEGY ELLIPTA) 200-62.5-25 mcg inhalation powder Inhale 1 Puff asinstructed once daily. B-complex with vitamin C (SUPER B COMPLEX-VITAMIN C ORAL) Take 1 tablet by mouth once daily. triamcinolone acetonide (NASACORT AQ) 55 mcg nasal inhaler Use 2 Sprays in each nostril once daily. aspirin, enteric coated (ASPIRIN, ENTERIC COATED) 81 mg EC tablet Take 1 tablet by mouth once daily. metoprolol tartrate, short acting, (LOPRESSOR) 25 mg tablet TAKE 1/2 (ONE-HALF) TABLET BY MOUTH TWICE DAILY calcium carbonate-vitamin D3 (OSCAL+D) 500 mg(1,250mg) -400 unit chewable tablet Take 1 tablet by mouth once daily. pantoprazole DR (PROTONIX) 40 mg tablet Take 40 mg by mouth once daily. (Patient not taking: Reported on 07/02/2024) hydroCHLOROthiazide (HYDRODIURIL, ESIDRIX) 12.5 mg tablet Take 12.5 mg by mouth once daily. (Patient not taking: Reported on 03/18/2023) iv contrast (will be provided with radiology test) CT Chest W -Inject, intravenously, once for 1 dose.No IV access, insert saline lock prior to the beginning of sedation, infusion, injection of imaging exam. Discontinue saline lock post exam. If Pt. has a central line or IVAD, may access for administration according to line specific nursing protocol. Once exam is complete flush line and de-accessaccording to line specific nursing protocol in the CT contrast administration guidelines link. docusate sodium (COLACE) 100 mg capsule Take 1 capsule by mouth twice daily as needed. (Patient nottaking: Reported on 07/02/2024) rosuvastatin (CRESTOR) 5 mg tablet Take 5 mg by mouth once daily. (Patient not taking: Reported on 07/02/2024) ramipril (ALTACE) 10 mg capsule Take 10 mg by mouth once daily. (Patient not taking: Reported on 07/02/2024) REVIEW OF SYSTEMS: GENERAL: No fever, night sweats, weight loss or malaise. All other reviewed and negative other than HPI. PHYSICAL EXAMINATION: VITAL SIGNS: BP 131/80 Pulse 71 Temp (Src) 97.2 (Temporal) Wt 213 lb 8 oz (96.8kg) SpO2 93% GENERAL APPEARANCE: Well appearing, in no acute distress, alert and oriented x3, well-hydrated, well nourished. I spent a total of 45 minutes on the date of the service which included preparing to see the patient, knyf-hj-iolq patient care, completing clinical documentation, obtaining and/or reviewing separately obtained history, counseling and educating the patient/family/caregiver, ordering medications, neelima ts, or procedures, independently interpreting results (not separately reported), and communicating results to the patient/family/caregiver. Also review with Dr Pearson Electronically Signed: Luis Miguel Guy MD August 06, 2024 [facility]05-30-2025 History of Present illness Narrative* Nelli An - 08/06/2024 11:17 AM EDT [facility] Special[facility] Refill Assessment Medication(s): xtandi Patient's current medication list and adherence status to current therapy were reviewed by Specialty Pharmacy clinical pharmacist to identify any new drug interactions or non-compliance to therapy. Therapy continues to be appropriate for disease, patient response, and medical condition. Verification of therapeutic benefit and effectiveness with current therapy was completed. Adverse events, barriers in adherence, and side effects were assessed and addressed if applicable. Will proceed with refill with no changes in therapy - patient progressing towards achieving therapeutic goals based on medication- specific laboratory parameters, disease state markers and outcomes. Office/provider notes have been reviewed prior to dispensing the medication. Agronomist Assessment Patient confirmed: Yes Med/dose confirmed: Yes Missed doses: No Estimated days supply on hand: 5 Copay amount: 0 Delivery method: FedEx Signature required: No Delivery address: [address] [place] [id number] Delivery date: 08/10/24 Questions or concerns for the pharmacist?: No Did you have any side effects believed to be related to this medication, that resulted in hospitalization?: No Current Outpatient Medications on File Prior to Visit Medication Sig atorvastatin (LIPITOR) 40 mg tablet Take 40 mg by mouth once daily. clopidogrel (PLAVIX) 75 mg tablet Take 75 mg by mouth once daily. famotidine (PEPCID) 20 mg tablet Take 20 mg by mouth two times a day. acetaminophen (TYLENOL EXTRA STRENGTH) 500 mg tablet Take 500 mg by mouth every 8 hours as needed. tamsulosin (FLOMAX) 0.4 mg Take 1 capsule by mouth once daily enzalutamide (XTANDI) 40 mg capsule Take 4 capsules (160mg) by mouth once daily. pantoprazole DR (PROTONIX) 40 mg tablet Take 40 mg by mouth once daily. (Patient not taking: Reported on 07/02/2024) tnjxaemwvdd-imuzypsfc-pyuzktgn (TRELEGY ELLIPTA) 200-62.5-25 mcg inhalation powder Inhale 1 Puff asinstructed once daily. B-complex with vitamin C (SUPER B COMPLEX-VITAMIN C ORAL) Take 1 tablet by mouth once daily. triamcinolone acetonide (NASACORT AQ) 55 mcg nasal inhaler Use 2 Sprays in each nostril once daily. aspirin, enteric coated (ASPIRIN, ENTERIC COATED) 81 mg EC tablet Take 1 tablet by mouth once daily. hydroCHLOROthiazide (HYDRODIURIL, ESIDRIX) 12.5 mg tablet Take 12.5 mg by mouth once daily. (Patient not taking: Reported on 03/18/2023) iv contrast (will be provided with radiology test) CT Chest W -Inject, intravenously, once for 1 dose.No IV access, insert saline lock prior to the beginning of sedation, infusion, injection of imaging exam. Discontinue saline lock post exam. If Pt. has a central line or IVAD, may access for administration according to line specific nursing protocol. Once exam is complete flush line and de-accessaccording to line specific nursing protocol in the CT contrast administration guidelines link. docusate sodium (COLACE) 100 mg capsule Take 1 capsule by mouth twice daily as needed. (Patient nottaking: Reported on 07/02/2024) rosuvastatin (CRESTOR) 5 mg tablet Take 5 mg by mouth once daily. (Patient not taking: Reported on 07/02/2024) ramipril (ALTACE) 10 mg capsule Take 10 mg by mouth once daily. (Patient not taking: Reported on 07/02/2024) metoprolol tartrate, short acting, (LOPRESSOR) 25 mg tablet TAKE 1/2 (ONE-HALF) TABLET BY MOUTH TWICE DAILY calcium carbonate-vitamin D3 (OSCAL+D) 500 mg(1,250mg) -400 unit chewable tablet Take 1 tablet by mouth once daily. No current facility-administered medications on file prior to visit. [facility] CLINICAL ASSESSMENT - HEMATOLOGY ONCOLOGY V6: Assessment to use: Refill Date of influenza vaccination reminder: 05/03/2024 Date of most recent vaccination assessment: 05/03/2024 Treatment Plan Information: Dx: metastatic prostate cancer Tx Hx: bicalutamide, abiraterone/prednisone, enzalutamide (current) Tx Plan: continue Lupron and enzalutamide, switch to Taxotere if PSA does not improved in 3 months Medication: enzalutamide (Xtandi) 40mg tablet Dose: 160mg Sig: Take 4 capsules (160mg) by mouth once daily. Administration: same time each day, swallow whole Handling: hazardous, wash hands Storage: room temperature, protect from moisture - keep bottle tightly closed Warnings: CVD effects, fractures, posterior reversible encephalopathy syndrome (PRES), seizures Adverse reactions: HTN, hot flashes, fatigue, hyperglycemia, constipation/diarrhea, nausea, decrease appetite/weight loss DDI: none Monitoring: CBC, LFTs, INR if on warfarin, BP, BG Vaccinations: shingles, influenza, Covid #3, Tdap, pneumococcal, RSV Est. Tx Plan Start Date: No information available Estimated Start Date Info: Continue current treatment Est. Estimated Treatment Duration: Until disease progression or unacceptable toxicity Nelli An documented in this encounterV[facility]05-30-2025 NoteHNO ID: [id number] Author: YIN DESAI [facility] Service: ? Author Type: ? Type: Progress Notes Filed: 08/07/2024 13:36 Note Text: [facility] Specialty Refill Assessment Medication(s): xtandi Reviewed OV note on 08/06/24. Labs reviewed. Plan to continue Xtandi. Plan for radiation to pelvic lesions. Next clinic visit scheduled 09/24/24. ALLERGIES No Known Allergies Patient's current medication list and adherence status to current therapy were reviewed by Specialty Pharmacy clinical pharmacist to identify any new drug interactions or non-compliance to therapy. Therapy continues to be appropriate for disease, patient response, and medical condition. Verification of therapeutic benefit and effectiveness with current therapy was completed. Adverse events, barriers in adherence, and side effects were assessed and addressed if applicable. Will proceed with refill with no changes in therapy - patient progressing towards achieving therapeutic goals based on medication-specific laboratory parameters, disease state markers and outcomes. Office/provider notes have been reviewed prior to dispensing the medication. Yin Desai PharmD, BCOP Clinical Pharmacist, Oncology [facility] P: , F: Pool: P [facility] Pool #: [id number] Agronomist Assessment Patient confirmed: Yes Med/dose confirmed: Yes Missed doses: No Estimated days supply on hand: 5 Copay amount: 0 Delivery method: FedEx Signature required: No Delivery address: [address] [place] [place] [id number] Delivery date: 08/10/24 Questions or concerns for the pharmacist?: No Did you have any side effects believed to be related to this medication, that resulted in hospitalization?: No Current Outpatient Medications on File Prior to Visit Medication Sig atorvastatin (LIPITOR) 40 mg tablet Take 40 mg by mouth once daily. clopidogrel (PLAVIX) 75 mg tablet Take 75 mg by mouth once daily. famotidine (PEPCID) 20 mg tablet Take 20 mg by mouth two times a day. acetaminophen (TYLENOL EXTRA STRENGTH) 500 mg tablet Take 500 mg by mouth every 8 hours as needed. tamsulosin (FLOMAX) 0.4 mg Take 1 capsule by mouth once daily enzalutamide (XTANDI) 40 mg capsule Take 4 capsules (160mg) by mouth once daily. pantoprazole DR (PROTONIX) 40 mg tablet Take 40 mg by mouth once daily. (Patient not taking: Reported on 07/02/2024) scatnfugxly-imdjjargt-bqphhjhi (TRELEGY ELLIPTA) 200-62.5-25 mcg inhalation powder Inhale 1 Puff as instructed once daily. B-complex with vitamin C (SUPER B COMPLEX-VITAMIN C ORAL) Take 1 tablet by mouth once daily. triamcinolone acetonide (NASACORT AQ) 55 mcg nasal inhaler Use 2 Sprays in each nostril once daily. aspirin, enteric coated (ASPIRIN, ENTERIC COATED) 81 mg EC tablet Take 1 tablet by mouth once daily. hydroCHLOROthiazide (HYDRODIURIL, ESIDRIX) 12.5 mg tablet Take 12.5 mg by mouth once daily. (Patient not taking: Reported on 03/18/2023) iv contrast (will be provided with radiology test) CT Chest W -Inject, intravenously, once for 1 dose.No IV access, insert saline lock prior to the beginning of sedation, infusion, injection of imaging exam. Discontinue saline lock post exam. If Pt. has a central line or IVAD, may access for administration according to line specific nursing protocol. Once exam is complete flush line and de-access according to line specific nursing protocol in the CT contrast administration guidelines link. docusate sodium (COLACE) 100 mg capsule Take 1 capsule by mouth twice daily as needed. (Patient not taking: Reported on 07/02/2024) rosuvastatin (CRESTOR) 5 mg tablet Take 5 mg by mouth once daily. (Patient not taking: Reported on 07/02/2024) ramipril (ALTACE) 10 mg capsule Take 10 mg by mouth once daily. (Patient not taking: Reported on 07/02/2024) metoprolol tartrate, short acting, (LOPRESSOR) 25 mg tablet TAKE 1/2 (ONE-HALF) TABLET BY MOUTH TWICE DAILY calcium carbonate-vitamin D3 (OSCAL+D) 500 mg(1,250mg) -400 unit chewable tablet Take 1 tablet by mouth once daily. No current facility-administered medications on file prior to visit. [facility] SPECIALTY CLINICAL ASSESSMENT - HEMATOLOGY ONCOLOGY V6: Ivent complete: No Assessment to use: Refill Lab monitoring inclusive of CBC, Chem-7, and other labs as pertinent for therapy: Yes Chemo cycle timing assessment: N/A Assessment of injection issues: N/A Current medication list (including drug interaction assessment): Yes Experience of adverse reactions to the medication: Yes Date of influenza vaccination reminder: 05/03/2024 Date of most recent vaccination assessment: 05/03/2024 Treatment Plan Information: Dx: metastatic prostate cancer Tx Hx: bicalutamide, abiraterone/prednisone, enzalutamide (current) Tx Plan: continue Lupron and enzalutamide, switch to Taxotere if PSA does not improved in 3 months Medication: enzalutamide (Xtandi) 40mg tablet Dose: 160mg Si (more content not included)...[facility]05-20-[facility]25 NoteHNO ID: [id number] Author: JUAN ALBERTO ADAME RT(R) Service: Nuclear Medicine Author Type: Technologist Type: Progress Notes Filed: 07/27/2024 10:05 Note Text: RADIOLOGY SERVICE PROGRESS NOTE SERVICE DATE: 07/27/2024 SERVICE TIME: 10:04 AM PATIENT IDENTITY VERIFICATION COMPLETED USING TWO (2) STANDARD IDENTIFIERS: Name and Date of confirmed by patient verbally FALL SCREENING: Has the patient had 2 falls in the last year or 1 fall with injury or currently using an Ambulatory Assistive Device (Walker, Cane, Wheelchair, Crutches, etc.)? No PATIENT GENDER DATA: .male ALLERGIES: NA MEDICATIONS REVIEWED: Not applicable PATIENT RELEVANT IMPLANT DATA REVIEWED: Not Applicable PATIENT PRESENTS WITH AN IMPLANTABLE OR ATTACHED INSPECTION MACHINE TENDER: No CREATININE: Creatinine Date Value Ref Range Status 06/23/2024 1.15 0.73 - 1.22 mg/dL Final 02/13/2024 1.30 (H) 0.73 - 1.22 mg/dL Final 11/20/2023 1.22 0.73 - 1.22 mg/dL Final Estimated Glomerular Filtration Rate Date Value Ref Range Status 06/23/2024 67 >=60 mL/min/1.73m? Final Comment: Estimated Glomerular Filtration Rate (eGFR) is calculated using the 2020 CKD-EPI creatinine equation. This equation utilizes serum creatinine, sex, and age as parameters. The creatinine assay has traceable calibration to isotope dilution-mass spectrometry. Refer to KDIGO guidelines for clinical interpretation. In patients with unstable renal function, e.g. those with acute kidney injury, the eGFR may not accurately reflect actual GFR. eGFR- Date Value Ref Range Status 02/16/2021 >60 Final P.O.C.T. RESULTS: N/A July 27, [address] PERFORMED: No IV SITE: Ambulatory: A peripheral IV was started in the Right antecubital site with a Angio cath: 24 gauge. POST EXAM PIV STATUS: Discontinued PROCEDURE TYPE: NM INJECT: PET/CT BODY SCAN. 8.8 mCi [id number]. Administered By: MO . No other medications given.. ADMINISTRATION TIME: 958 PATIENT DISCHARGED TO: Ambulatory patient, left AL department area. Is this a therapy: No A Diagnostic radioactive procedure has taken place, with no further precautions necessary other than routine body substance precautions. More information regarding radiation safety can be found using this link: [email or web address] SIGNATURE: Juan Alberto Adame RT(R) PATIENT NAME: Salo Nagy DATE: July 27, 2024 TIME: 10:04 AM [id number] NoteHNO ID: [id number] Author: FERMÍN GARCIA RPh Service: ? Author Type: ? Type: Progress Notes Filed: 07/06/2024 07:11 Note Text: [facility] Specialty Refill Assessment Medication(s): Xtandi Reviewed Hernan note on 07/02. Labs reviewed. Latest Reference Range AND Units 02/13/24 10:01 06/23/24 11:48 PSA <2.60 ng/mL 9.46 (H) 24.91 (H) Information given re taxotere, will re convene after PET. (07/27) Continue xtandi for now. Next clinic visit scheduled 08/06. ALLERGIES No Known Allergies Patient's current medication list and adherence status to current therapy were reviewed by Specialty Pharmacy clinical pharmacist to identify any new drug interactions or non-compliance to therapy. Therapy continues to be appropriate for disease, patient response, and medical condition. Verification of therapeutic benefit and effectiveness with current therapy was completed. Adverse events, barriers in adherence, and side effects were assessed and addressed if applicable. Will proceed with refill with no changes in therapy - patient progressing towards achieving therapeutic goals based on medication-specific laboratory parameters, disease state markers and outcomes. Office/provider notes have been reviewed prior to dispensing the medication. Fermín Garcia RPh Clinical Pharmacist Oncology [facility] P F Pool: P [facility] Pool #: [id number] Agronomist Assessment Patient confirmed: Yes Med/dose confirmed: Yes Supplies needed: No supplies needed Missed doses: No Estimated days supply on hand: 9 Copay amount: 0 Payment confirmed: Yes Delivery method: FedEx Signature required: No Delivery address: [address] [place] [address] Delivery date: 07/07/24 Questions or concerns for the pharmacist?: No Did you have any side effects believed to be related to this medication, that resulted in hospitalization?: No Current Outpatient Medications on File Prior to Visit Medication Sig atorvastatin (LIPITOR) 40 mg tablet Take 40 mg by mouth once daily. clopidogrel (PLAVIX) 75 mg tablet Take 75 mg by mouth once daily. famotidine (PEPCID) 20 mg tablet Take 20 mg by mouth two times a day. acetaminophen (TYLENOL EXTRA STRENGTH) 500 mg tablet Take 500 mg by mouth every 8 hours as needed. tamsulosin (FLOMAX) 0.4 mg Take 1 capsule by mouth once daily enzalutamide (XTANDI) 40 mg Take 4 capsules (160mg) by mouth once daily. pantoprazole DR (PROTONIX) 40 mg tablet Take 40 mg by mouth once daily. (Patient not taking: Reported on 07/02/2024) dxvgvpbnpyw-laazdfmmg-niidvwvz (TRELEGY ELLIPTA) 200-62.5-25 mcg inhalation powder Inhale 1 Puff as instructed once daily. B-complex with vitamin C (SUPER B COMPLEX-VITAMIN C ORAL) Take 1 tablet by mouth once daily. triamcinolone acetonide (NASACORT AQ) 55 mcg nasal inhaler Use 2 Sprays in each nostril once daily. aspirin, enteric coated (ASPIRIN, ENTERIC COATED) 81 mg EC tablet Take 1 tablet by mouth once daily. hydroCHLOROthiazide (HYDRODIURIL, ESIDRIX) 12.5 mg tablet Take 12.5 mg by mouth once daily. (Patient not taking: Reported on 03/18/2023) iv contrast (will be provided with radiology test) CT Chest W -Inject, intravenously, once for 1 dose.No IV access, insert saline lock prior to the beginning of sedation, infusion, injection of imaging exam. Discontinue saline lock post exam. If Pt. has a central line or IVAD, may access for administration according to line specific nursing protocol. Once exam is complete flush line and de-access according to line specific nursing protocol in the CT contrast administration guidelines link. docusate sodium (COLACE) 100 mg capsule Take 1 capsule by mouth twice daily as needed. (Patient not taking: Reported on 07/02/2024) rosuvastatin (CRESTOR) 5 mg tablet Take 5 mg by mouth once daily. (Patient not taking: Reported on 07/02/2024) ramipril (ALTACE) 10 mg capsule Take 10 mg by mouth once daily. (Patient not taking: Reported on 07/02/2024) metoprolol tartrate, short acting, (LOPRESSOR) 25 mg tablet TAKE 1/2 (ONE-HALF) TABLET BY MOUTH TWICE DAILY calcium carbonate-vitamin D3 (OSCAL+D) 500 mg(1,250mg) -400 unit chewable tablet Take 1 tablet by mouth once daily. No current facility-administered medications on file prior to visit. [facility] SPECIAL[facility] CLINICAL ASSESSMENT - HEMATOLOGY ONCOLOGY V6: Ivent complete: No Assessment to use: Refill Lab monitoring inclusive of CBC, Chem-7, and other labs as pertinent for therapy: Yes Chemo cycle timing assessment: N/A Assessment of injection issues: N/A Current medication list (including drug interaction assessment): Yes Experience of adverse reactions to the medication: Yes Date of influenza vaccination reminder: 05/03/2024 Date of most recent vaccination assessment: 05/03/2024 Treatment Plan Information: Dx: metastatic prostate cancer Tx Hx: bicalutamide, abiraterone/prednisone, enzalut (more content not included)...[facility]04-25-2025 NoteHNO ID: [id number] Author: LUIS MIGUEL GUY MD Service: ? Author Type: Physician Type: Progress Notes Filed: 07/02/2024 12:47 Note Text: (Elements copied from my note dated February 18, 2024, have been reviewed and updated where appropriate, and all reflect current assessment and medical decision making from today's encounter, July 02, 2024) HISTORY OF PRESENT ILLNESS: Salo Nagy is a 72 year old male dx prostate cancer 2019 on basis of back pain found bone lesions, PSA >3000 at that time. Prostate biopsy at that time showed adenocarcinoma. Started lupron and zytiga after casodex blockade. PSA responded well, PSA tripled in fall 2022 Switched to xtandi, delay in starting due to obtaining med. Guardant was negative for actionable mutation. Here for follow up, reviewed PSA, rising, DT < 3 months Recent open heart surgery for CABG, slowly recovering with cardiac rehab. Reviewed recent PSA. l. CLINICAL IMPRESSION: Prostate cancer metastatic to bone. PSA climbing rate increased, RECOMMENDATION/PLAN: 1. continue enzalutamide. Plan taxotere if PSA DT persists less than 3 months on xtandi. Info given previously. Continuing lupron and zometa. 2. PSMA PET. Information given re taxotere, will re convene after PET. Continue xtandi for now. Written and verbal health teaching given to patient, patient verbalizes understanding and agrees with treatment plan. PAST MEDICAL HISTORY Diagnosis Date Aneurysm of infrarenal abdominal aorta Bone metastases 07/24/2018 CVA (cerebral vascular accident) (HCC) 09/07/2018 Elevated LFTs 04/15/2022 Essential hypertension 09/07/2018 History of CVA (cerebrovascular accident) Malignant neoplasm of prostate (HCC) 07/10/2018 Panlobular emphysema (HCC) 09/07/2018 PAST SURGICAL HISTORY Procedure Laterality Date CYSTOSCOPY 01/09/2018 TRURL ELECTROSURG RESCJ PROSTATE BLEED COMPLETE FAMILY HISTORY Problem Relation Age of Onset Thyroid Mother Breast Cancer Mother Heart Father Heart Brother Aneurysm No Family History Social History Tobacco Use Smoking status: Former Current packs/day: 0.00 Average packs/day: 1 pack/day for 45.0 years (45.0 ttl pk-yrs) Types: Cigarettes Start date: 04/18/1974 Quit date: 04/18/2019 Years since quittin.2 Smokeless tobacco: Never Vaping Use Vaping status: Never Used Substance Use Topics Alcohol use: Never Drug use: Never ALLERGIES: ALLERGIES No Known Allergies CURRENT OUTPATIENT MEDICATIONS: atorvastatin (LIPITOR) 40 mg tablet Take 40 mg by mouth once daily. famotidine (PEPCID) 20 mg tablet Take 20 mg by mouth two times a day. acetaminophen (TYLENOL EXTRA STRENGTH) 500 mg tablet Take 500 mg by mouth every 8 hours as needed. tamsulosin (FLOMAX) 0.4 mg Take 1 capsule by mouth once daily enzalutamide (XTANDI) 40 mg Take 4 capsules (160mg) by mouth once daily. xgpyjaveyoh-mcyccbrui-ynkperwg (TRELEGY ELLIPTA) 200-62.5-25 mcg inhalation powder Inhale 1 Puff as instructed once daily. B-complex with vitamin C (SUPER B COMPLEX-VITAMIN C ORAL) Take 1 tablet by mouth once daily. triamcinolone acetonide (NASACORT AQ) 55 mcg nasal inhaler Use 2 Sprays in each nostril once daily. aspirin, enteric coated (ASPIRIN, ENTERIC COATED) 81 mg EC tablet Take 1 tablet by mouth once daily. metoprolol tartrate, short acting, (LOPRESSOR) 25 mg tablet TAKE 1/2 (ONE-HALF) TABLET BY MOUTH TWICE DAILY calcium carbonate-vitamin D3 (OSCAL+D) 500 mg(1,250mg) -400 unit chewable tablet Take 1 tablet by mouth once daily. clopidogrel (PLAVIX) 75 mg tablet Take 75 mg by mouth once daily. pantoprazole DR (PROTONIX) 40 mg tablet Take 40 mg by mouth once daily. (Patient not taking: Reported on 07/02/2024) hydroCHLOROthiazide (HYDRODIURIL, ESIDRIX) 12.5 mg tablet Take 12.5 mg by mouth once daily. (Patient not taking: Reported on 03/18/2023) iv contrast (will be provided with radiology test) CT Chest W -Inject, intravenously, once for 1 dose.No IV access, insert saline lock prior to the beginning of sedation, infusion, injection of imaging exam. Discontinue saline lock post exam. If Pt. has a central line or IVAD, may access for administration according to line specific nursing protocol. Once exam is complete flush line and de-access according to line specific nursing protocol in the CT contrast administration guidelines link. docusate sodium (COLACE) 100 mg capsule Take 1 capsule by mouth twice daily as needed. (Patient not taking: Reported on 07/02/2024) rosuvastatin (CRESTOR) 5 mg tablet Take 5 mg by mouth once daily. (Patient not taking: Reported on 07/02/2024) ramipril (ALTACE) 10 mg capsule Take 10 mg by mouth once daily. (Patient not taking: Reported on 07/02/2024) REVIEW OF SYSTEMS: GENERAL: No fever, night sweats, weight loss or malaise. All other reviewed and negative other than HPI. PHYSICAL EXAMINATION: VITAL SIGNS: BP 136/83 Pulse 72 Temp (Src) 97.7 (Temporal) Wt 208 lb (94.3kg) SpO (more content not included)...[facility] 06-24-2024 Telephone encounter Note* Telephone Encounter - Tiff Herr LPN - 06/24/2024 7:58 AM EDT Prescription Refill Information The patient has been identified by name and date of : Yes Caregiver verified no other encounters exist for this prescription request: Yes Caregiver confirmed with patient/requestor that no other refills are due, in the near future, with this provider at this time: Yes The last office visit in the department: 02/18/2024 Does the patient have a future office visit with this provider/department: Yes Requested Prescriptions Pending Prescriptions Disp Refills tamsulosin (FLOMAX) 0.4 mg [Pharmacy Med Name: Tamsulosin HCl 0.4 MG Oral Capsule] 90 capsule 0 Sig: Take 1 capsule by mouth once daily Tiff Herr LPN June 24, 2024 7:58 AM [facility]04-17-2025 Miscellaneous Notes* Telephone Encounter - Tiff Herr LPN - 06/24/2024 7:58 AM EDT Prescription Refill Information The patient has been identified by name and date of : Yes Caregiver verified no other encounters exist for this prescription request: Yes Caregiver confirmed with patient/requestor that no other refills are due, in the near future, with this provider at this time: Yes The last office visit in the department: 02/18/2024 Does the patient have a future office visit with this provider/department: Yes Requested Prescriptions Pending Prescriptions Disp Refills tamsulosin (FLOMAX) 0.4 mg [Pharmacy Med Name: Tamsulosin HCl 0.4 MG Oral Capsule] 90 capsule 0 Sig: Take 1 capsule by mouth once daily Tiff Herr LPN June 24, 2024 7:58 AM documented in this encounterV[facility]03-25-2025 NoteHNO ID: [id number] Author: YIN DESAI RPh Service: ? Author Type: ? Type: Progress Notes Filed: 06/05/2024 10:30 Note Text: [facility] Refill Assessment Medication(s): Xtandi No new clinical information to review since last SPP refill encounter. Next OV NOT scheduled. ALLERGIES No Known Allergies Patient's current medication list and adherence status to current therapy were reviewed by Specialty Pharmacy clinical pharmacist to identify any new drug interactions or non-compliance to therapy. Therapy continues to be appropriate for disease, patient response, and medical condition. Verification of therapeutic benefit and effectiveness with current therapy was completed. Adverse events, barriers in adherence, and side effects were assessed and addressed if applicable. Will proceed with refill with no changes in therapy - patient progressing towards achieving therapeutic goals based on medication-specific laboratory parameters, disease state markers and outcomes. Office/provider notes have been reviewed prior to dispensing the medication. Yin Desai, YeimiD, BCOP Clinical Pharmacist, Oncology [facility] P: , F: Pool: P [facility] Pool #: [id number] Agronomist Assessment Patient confirmed: Yes Med/dose confirmed: Yes Supplies needed: No supplies needed Missed doses: Yes Count of missed doses: 2 Reason for missed doses: pt was in ICU Estimated days supply on hand: 9 Copay amount: 0 Delivery method: FedEx Signature required: Waived on patient request Delivery address: [address] [place] [place] [id number] Delivery date: 06/08/24 Questions or concerns for the pharmacist?: No Did you have any side effects believed to be related to this medication, that resulted in hospitalization?: No Current Outpatient Medications on File Prior to Visit Medication Sig enzalutamide (XTANDI) 40 mg Take 4 capsules (160mg) by mouth once daily. tamsulosin (FLOMAX) 0.4 mg Take 1 capsule by mouth once daily enzalutamide (XTANDI) 40 mg tablet Take 4 tablets (160mg) by mouth once daily as directed by physician. pantoprazole DR (PROTONIX) 40 mg tablet Take 40 mg by mouth once daily. prmcwpmzrtt-hqpveavmg-vvbhubto (TRELEGY ELLIPTA) 200-62.5-25 mcg inhalation powder Inhale 1 Puff as instructed once daily. B-complex with vitamin C (SUPER B COMPLEX-VITAMIN C ORAL) Take 1 tablet by mouth once daily. triamcinolone acetonide (NASACORT AQ) 55 mcg nasal inhaler Use 2 Sprays in each nostril once daily. aspirin, enteric coated (ASPIRIN, ENTERIC COATED) 81 mg EC tablet Take 1 tablet by mouth once daily. hydroCHLOROthiazide (HYDRODIURIL, ESIDRIX) 12.5 mg tablet Take 12.5 mg by mouth once daily. (Patient not taking: Reported on 03/18/2023) iv contrast (will be provided with radiology test) CT Chest W -Inject, intravenously, once for 1 dose.No IV access, insert saline lock prior to the beginning of sedation, infusion, injection of imaging exam. Discontinue saline lock post exam. If Pt. has a central line or IVAD, may access for administration according to line specific nursing protocol. Once exam is complete flush line and de-access according to line specific nursing protocol in the CT contrast administration guidelines link. docusate sodium (COLACE) 100 mg capsule Take 1 capsule by mouth twice daily as needed. rosuvastatin (CRESTOR) 5 mg tablet Take 5 mg by mouth once daily. ramipril (ALTACE) 10 mg capsule Take 10 mg by mouth once daily. metoprolol tartrate, short acting, (LOPRESSOR) 25 mg tablet TAKE 1/2 (ONE-HALF) TABLET BY MOUTH TWICE DAILY calcium carbonate-vitamin D3 (OSCAL+D) 500 mg(1,250mg) -400 unit chewable tablet Take 1 tablet by mouth once daily. No current facility-administered medications on file prior to visit. [facility] SPECIALTY CLINICAL ASSESSMENT - HEMATOLOGY ONCOLOGY V6: Ivent complete: No Assessment to use: Refill Lab monitoring inclusive of CBC, Chem-7, and other labs as pertinent for therapy: Yes Chemo cycle timing assessment: N/A Assessment of injection issues: N/A Current medication list (including drug interaction assessment): Yes Experience of adverse reactions to the medication: Yes Date of influenza vaccination reminder: 05/03/2024 Date of most recent vaccination assessment: 05/03/2024 Treatment Plan Information: Dx: metastatic prostate cancer Tx Hx: bicalutamide, abiraterone/prednisone, enzalutamide (current) Tx Plan: continue Lupron and enzalutamide, switch to Taxotere if PSA does not improved in 3 months Medication: enzalutamide (Xtandi) 40mg tablet Dose: 160mg Sig: Take 4 capsules (160mg) by mouth once daily. Administration: same time each day, swallow whole Handling: hazardous, wash hands Storage: room temperature, protect from moisture - keep bottle tightly closed Warnings: CVD effects, fractures, posterior reversible encephalopathy syndrome (PRES), seizures Adv (more content not included)...[facility]02-25-2025 Telephone encounter Note* Telephone Encounter - Meagan Caro RN - 05/04/2024 1:41 PM EST Thank you. I will make a note to follow up with this. Julia Caro RN [facility] Work Phone: 1(669) 113-252002-25-2025 Miscellaneous Notes* Telephone Encounter - Meagan Caro RN - 05/04/2024 1:41 PM EST Thank you. I will make a note to follow up with this. Julia Caro RN * Telephone Encounter - Alaina Espino - 05/04/2024 12:19 PM EST Spouse called to cancel upcoming lab, office visit/treatment/inj due to patient currently at [facility]. Patient is to have open heart surgery. Spouse will inform office when patient is discharged. documented in this encounterVeter[facility]02-25-2025 Telephone encounter Note * Telephone Encounter - Alaina Espino - 05/04/2024 12:19 PM EST Spouse called to cancel upcoming lab, office visit/treatment/inj due to patient currently at [facility] in [place]. Patient is to have open heart surgery. Spouse will inform office when patient is discharged. [facility] Work Phone: 1(714) 588-306202-20-2025 History of Present illness Narrative* Rossy Villanueva - 04/29/2024 2:11 PM EST [facility] received prescription(s) for Xtandi from [facility]'s office. Benefits investigation was conducted, indicating that a prior authorization was previously required and approved. Covers current medication strength/dose based on adjudication / claim rejections: yes (YES OR NO) Change in insurance: no Approval thru: 03/10/24-03/16/25 Rossy VillanuevaWeb Engineer Oncology/Hematology [facility] Office: * Rossy Villanueva - 04/29/2024 2:11 PM EST [facility] received prescription(s[facility] Benefits investigation was conducted, indicating that a prior authorization is required. JOHNNY was approved with details listed below: Plan Name: Manny TURNER reference number: [id number] Approval Dates: 03/10/24-03/16/25 The first copay is high ~$1981.98 due to the $2000 maximum out of pocket limit or cap on prescription drug expenses. After this fill the patient has reached their cap, and it is expected his/her copays will be $0 thereafter. Rossy VillanuevaWeb Engineer Oncology/Hematology [facility] Office: Addendum April 29, 2024 2:41 PM : LOVEThESIGN everett on file (telephone encounter on 04/28/24). Pt's copay is $0.00 with everett applied. Note will be updated once pt is contacted and delivery is confirmed. Yi Pace, PharmD Clinical Pharmacist, Oncology [facility] P: , F: Pool: P [facility] ON[facility] Pool #: [id number] documented in this encounterVeterans Health Administration02-20-2025 NoteHNO ID: [id number] Author: YI PACE RPh Service: ? Author Type: ? Type: Progress Notes Filed: 04/29/2024 14:44 Note Text: [facility] received prescription(s) for Xtandi from [facility]'s office. Benefits investigation was conducted, indicating that a prior authorization is required. PA was approved with details listed below: Plan Name: Manny JOHNNY reference number: [id number] Approval Dates: 03/10/24-03/16/25 The first copay is high ~$1981.98 due to the $2000 maximum out of pocket limit or cap on prescription drug expenses. After this fill the patient has reached their cap, and it is expected his/her copays will be $0 thereafter. Rossy Villanueva,Web Engineer Oncology/Hematology [facility] Office: Addendum April 29, 2024 2:41 PM : LOVEThESIGN everett on file (telephone encounter on 04/28/24). Pt's copay is $0.00 with everett applied. Note will be updated once pt is contacted and delivery is confirmed. Yi Pace, PharmD Clinical Pharmacist, Oncology [facility] P: , F: Pool: P [facility] Pool #: [id number] NoteHNO ID: [id number] Author: YI PACE RPh Service: ? Author Type: Pharmacist Type: Progress Notes Filed: 05/03/2024 09:35 Note Text: [facility] received prescription(s) for enzalutamide (Xtandi) from Dr Guy's office. Benefits investigation was conducted, indicating that a prior authorization is required. PA was approved with details listed below: Plan Name: Manny JOHNNY reference number: [id number] Approval Dates: 03/10/24-03/16/25 Pt's copay is $0.00. Shipment has been arranged, and pt will receive medication(s) on 05/05/24. Upon receipt of the prescription, it was determined that patient is not new to medication but is new to [facility]. Therefore, a full drug interaction review was conducted, based on medication list provided in [facility]. No drug interactions were identified. At the time patient was contacted to set up delivery, pharmacy staff reviewed [facility] services and provided contact information for the pharmacy. Additionally, pharmacy staff confirmed medication name and current dose with patient. An offer was then extended for an opportunity to speak with a pharmacist regarding questions/concerns before the call was completed. S/he expressed understanding of the information provided. Initial shipment will include a handout detailing drug information including injection technique (if applicable), side effects and proper storage/handling requirements. Office/provider notes have been reviewed prior to dispensing the medication. PAST MEDICAL HISTORY Diagnosis Date Aneurysm of infrarenal abdominal aorta (HCC) Bone metastases 07/24/2018 CVA (cerebral vascular accident) (HCC) 09/07/2018 Elevated LFTs 04/15/2022 Essential hypertension 09/07/2018 History of CVA (cerebrovascular accident) Malignant neoplasm of prostate (HCC) 07/10/2018 Panlobular emphysema (HCC) 09/07/2018 ALLERGIES No Known Allergies Problem List Noted Noted By Resolved Resolved By Elevated LFTs 04/15/2022 Tiff Herr LPN No Acute pulmonary embolism without acute cor pulmonale (HCC) 08/29/2020 Rogeilo Bee MD No Hypoxemia 08/28/2020 Rogelio Bee MD No AAA (abdominal aortic aneurysm) ([facility]) 10/29/2019 Cruz Burroughs, SHUTTLE ROUTE VEHICLE OPERATOR.PET TRAINER No Overview Addendum 10/30/2019 11:52 AM by Chris Auguste (Res)MD History: Salo Nagy is a 69 year old White male s/p EVAR on 10/28 for AAA with bilateral ANGEL aneurysms. Recovering well as expected Assessment: Recovering well with no complications. Labs acceptable. Plan: Regular diet OOB Home meds Dc home today Will schedule outpatient follow up with Dr. Sanchez Bone metastases 01/14/2019 Rogelio Bee MD No Essential hypertension 09/07/2018 Taz Cool No CVA (cerebral vascular accident) (HCC) 09/07/2018 Taz Cool No Panlobular emphysema (HCC) 09/07/2018 Geoffrey Sanchez MD No Claudication of both lower extremities (HCC) 09/07/2018 Geoffrey Sanchez MD No AAA (abdominal aortic aneurysm) without rupture (HCC) 09/07/2018 Geoffrey Sanchez MD No Iliac aneurysm (HCC) 09/07/2018 Geoffrey Sanchez MD No Bilateral carotid artery stenosis 09/07/2018 Geoffrey Sanchez MD No Prostate cancer metastatic to bone (HCC) 07/24/2018 Rogelio Bee MD No Malignant neoplasm of prostate (HCC) 07/10/2018 Rogelio Bee MD No Neoplasm of unspecified behavior of bone, soft tissue, and skin 06/18/2018 Geoffrey Sanchez MD No Acute urinary retention 10/30/2019 Chris Auguste MD 10/30/2019 Chris Auguste MD Overview Addendum 10/30/2019 11:50 AM by Chris Auguste (Res)MD Hx: Retention following batista removal, voiding freely after straight cath Assessment: Now voiding freely Plan: Dc home Agronomist Assessment Patient confirmed: Yes Med/dose confirmed: Yes Supplies needed: No supplies needed Missed doses: No Estimated days supply on hand: 7 Copay amount: 0 Delivery method: FedEx Signature required: Waived on patient request Delivery address: [address] [place] [address] Delivery date: 05/05/24 Questions or concerns for the pharmacist?: No (Went over our services and AOB, no further questions.) Did you have any side effects believed to be related to this medication, that resulted in hospitalization?: No [facility] SPECIALTY CLINICAL ASSESSMENT - HEMATOLOGY ONCOLOGY V6: Ivent complete: No Assessment to use: Initial testing and baseline labs: Yes Reviewed supportive care medication appropriateness based on emetogenic risk of therapy: Yes Counseling on intended outcome of therapy: Palliative Reviewed intended chemotherapy cycling and dosing regimen: N/A Patient device teaching: N/A Diagnosis: Yes Prior therapy and current medication list (including drug interaction assessment): Yes Comorbidities: Yes Medical history: Yes Ability to properly self-adminster medication: Yes Therapeutic goals based on possible outcomes of therapy: Yes Does the patient have any additional functional limitations, dietary needs, or (more content not included)...[facility]02-20-2025 NoteHNO ID: [id number] Author: ?, ?, ? Service: ? Author Type: ? Type: Progress Notes Filed: 04/29/2024 14:25 Note Text: [facility] received prescription(s) for Xtandi from Hernan's office. Benefits investigation was conducted, indicating that a prior authorization was previously required and approved. Covers current medication strength/dose based on adjudication / claim rejections: yes (YES OR NO) Change in insurance: no Approval thru: 03/10/24-03/16/25 Rossy VillanuevaWeb Engineer Oncology/Hematology [facility] Note* Telephone Encounter - Tanja Patel LISW - 04/28/2024 10:54 AM EST SOCIAL WORK FOLLOW UP NOTE: [facility] Date of service: April 28, 2024 SW met with pt's this date who reports pt has a [employer] [place] they would like to use to payfor pt's Xtandi. Spoke with pt's about the process for doing so, she verbalized understanding. would like to utilize [facility]. Dr. Maloney - Can you please send Xtandi script to [facility]? [place]/payment info is below: [employer] ID: [id number] Patient: Salo Nagy Status: Approved Sub Status: Active Start Date: 08/09/2023 End Date: 08/07/2024 Assistance Type: Co-pay [place] Balance: $7674.37 Pharmacy Card: Card No.: [id number] Card Status: Active BIN:[id number] PCN: [id number] PC Group: [id number] OMID Hassan [facility]02-19-2025 Miscellaneous Notes* Telephone Encounter - Tanja Patel LISW - 04/28/2024 10:54 AM EST SOCIAL WORK FOLLOW UP NOTE: [facility]ENTER Date of service: April 28, 2024 SW met with pt's this date who reports pt has a [employer] [place] they would like to use to payfor pt's Xtandi. Spoke with pt's about the process for doing so, she verbalized understanding. would like to utilize [facility]. Dr[facility] Maloney - [facility] [place]/payment info is below: [employer] ID: [id number] Patient: Salo Nagy Status: Approved Sub Status: Active Start Date: 08/09/2023 End Date: 08/07/2024 Assistance Type: Co-pay [place] Balance: $7674.37 Pharmacy Card: Card No.: [id number] Card Status: Active BIN:[id number] PCN: [id number] PC Group: [id number] OMID Hassan [facility] Hospital Discharge instructions Patient Education 04/19/2024 13:07:03 Chest Pain, Uncertain Cause Uncertain Causes of Chest Pain Chest pain can happen for a number of reasons. Sometimes the cause can't be determined. If your condition does not seem serious, and your pain does not appear to be coming from your heart, your healthcare provider may recommend watching it closely. Sometimes the signs of a serious problem take moretime to appear. Many problems not related to your heart can cause chest pain. These include: Musculoskeletal. Costochondritis is an inflammation of the tissues around the ribs that can occur from trauma or overuse injuries, or a strain of the muscles of the chest wall Respiratory. Pneumonia, collapsed lung (pneumothorax), or inflammation of the lining of the chest and lungs (pleurisy) Gastrointestinal. Esophageal reflux, heartburn, ulcers, or gallbladder disease Anxiety and panic disorders Nerve compression and inflammation Rare miscellaneous problems such as aortic aneurysm (a swelling of the large artery coming out of the heart) or pulmonary embolism (a blood clot in the lungs) Home care After your visit, follow these recommendations: Rest today and avoid strenuous activity. Take any prescribed medicine as directed. Be aware of any recurrent chest pain and notice any changes Follow-up care Follow up with your healthcare provider if you do not start to feel better within 24 hours, or as advised. Call 911 Call 911 if any of these occur: A change in the type of pain: if it feels different, becomes more severe, lasts longer, or begins to spread into your shoulder, arm, neck, jaw or back Shortness of breath or increased pain with breathing Weakness, dizziness, or fainting Rapid heart beat Crushing sensation in your chest When to seek medical advice Call your healthcare provider right away if any of the following occur: Cough with dark colored sputum (phlegm) or blood Fever of 100.4 F (38 C) or higher, or as directed by your healthcare provider Swelling, pain or redness in one leg 1991-0528 [employer]. [address] [place] [address]. All rights reserved. This information is not intended as a substitute for professional medical care. Always follow yourhealthcare professional's instructions. Follow Up Care 04/19/2024 08:51:06 With:EVI BAUER Address: [address] [place] [phone]- [phone] When:2-4 days [facility] 02-10-2025 Note Discharge Instructions Thank you for allowing [facility] to assist you with your healthcare needs. The following is importantdischarge information regarding your hospital visit. Diagnosis from Today's Visit Chest pain What to Do Next Instructions from Your Care Team No qualifying data available. Post Acute Orders No qualifying data available. You Need to Schedule the Following Appointments Follow Up with EVI BAUER When:Within 2-4 days Where:[address] [place] [address] [phone]- [phone] Allergies tiZANidine Unsteady on feet, Drowsy Medications Please ask your primary doctor or pharmacist before taking any other medication not listed, including over the counter drugs, herbal medications, vitamins and or supplements as they may interact withyour home medications. What How Much When Why Instructions Last Dose Unchanged albuterol (ProAir HFA MDI (90 mcg/ inh) inhalation aerosol) 1 puff(s) by inhalation Every 4 hours COPD Duration: 90 Days Unchanged aspirin (Adult Aspirin Regimen 81 mg oral delayed release tablet) 1 tab(s) by mouth Once a day Unchanged calcium-vitamin D (Caltrate 600 + D oral tablet) 1 tab(s) by mouth Every day Unchanged enzalutamide (Xtandi 40 mg oral tablet) 4 tab(s) by mouth Once a day do not chew or break tablets Unchanged fluticasone/ umeclidinium/ vilanterol (Trelegy Ellipta 100 mcg-62.5 mcg-25 mcg/ inh inhalation powder) 1 puff(s) by inhalation Once a day at the same time every day. Following administration, rinse mouth with water after use (do not swallow). Unchanged metoprolol (Lopressor 25mg--USE metoprolol tartrate 25 mg oral tablet) 0.5 tab(s) by mouth Two (2) times a day Unchanged multivitamin (Vitamin B Complex 100) Unchanged naproxen (naproxen 250 mg oral tablet) 1 tab(s) by mouth Two (2) times a day Unchanged pantoprazole (pantoprazole 40 mg oral enteric coated tablet) 1 tab(s) by mouth Once a day GERD (gastroesophageal reflux disease) Unchanged rosuvastatin (rosuvastatin 5 mg oral tablet) 1 tab(s) by mouth Once a day Hyperlipidemia LDL goal <100 Unchanged tamsulosin (tamsulosin 0.4 mg oral capsule) 1 cap by mouth Once a day Unchanged triamcinolone topical (triamcinolone 0.1% topical cream) See instructions to affected area BID Unchanged valsartan (valsartan 160 mg oral tablet) 1 tab(s) by mouth Every day Please take this list to your next doctor s visit. Bring all medications you take, including over the counter medications, herbals and other supplements with you to your doctor s visit. Patients and families are reminded to discard old lists and to update any records with all medication providers or retail pharmacies. Education Materials Uncertain Causes of Chest Pain Chest pain can happen for a number of reasons. Sometimes the cause can't be determined. If your condition does not seem serious, and your pain does not appear to be coming from your heart, your healthcare provider may recommend watching it closely. Sometimes the signs of a serious problem take moretime to appear. Many problems not related to your heart can cause chest pain. These include: Musculoskeletal. Costochondritis is an inflammation of the tissues around the ribs that can occur from trauma or overuse injuries, or a strain of the muscles of the chest wall Respiratory. Pneumonia, collapsed lung (pneumothorax), or inflammation of the lining of the chest and lungs (pleurisy) Gastrointestinal. Esophageal reflux, heartburn, ulcers, or gallbladder disease Anxiety and panic disorders Nerve compression and inflammation Rare miscellaneous problems such as aortic aneurysm (a swelling of the large artery coming out of the heart) or pulmonary embolism (a blood clot in the lungs) Home care After your visit, follow these recommendations: Rest today and avoid strenuous activity. Take any prescribed medicine as directed. Be aware of any recurrent chest pain and notice any changes Follow-up care Follow up with your healthcare provider if you do not start to feel better within 24 hours, or as advised. Call 911 Call 911 if any of these occur: A change in the type of pain: if it feels different, becomes more severe, lasts longer, or begins to spread into your shoulder, arm, neck, jaw or back Shortness of breath or increased pain with breathing Weakness, dizziness, or fainting Rapid heart beat Crushing sensation in your chest When to seek medical advice Call your healthcare provider right away if any of the following occur: Cough with dark colored sputum (phlegm) or blood Fever of 100.4 F (38 C) or higher, or as directed by your healthcare provider Swelling, pain or redness in one leg 2918-0232 [employer]. [address] [place] [address]. All rights reserved. This information is not intended as a substitute for professional medical care. Always follow yourhealthcare professional's instructions. Additional Information VACCINATE! IT SAVES LIVES! Members of the community who have not yet received the COVID-19 vaccine and would like to receive it can visit one of [facility] vaccine clinics. There are many vaccine clinic locations within the [facility]. For locations and available times, please visit [email or web address].[place].gov/. It is important to note that some COVID mobile vaccine clinics are held outdoors and may be canceled in rainy or stormy conditions. To learn more about pediatric vaccinations (ages 5-11), we invite you to visit the [employer] webpage. [email or web address]/[email or web address]-[email or web address] [email or web address] learn more about the COVID-19 vaccine, we invite you to visit the CDC website for a list of frequently asked questions. https://www.cdc.gov/coronavirus/2019-ncov/vaccines/faq.html [facility] Patient Portal Access Instructions: Stay connected with your healthcare team and access your personal medical information anytime with the [facility] Patient Portal. If you would like a full copy of your medical records please contact the [facility] Medical Records Department Friday through Friday between 8a.m. and 4:30p.m. Please follow the directions below to access the portal: 1.Access the email account you provided upon registration to the [facility].2.Look for an invitation email from [facility].3.Open the email and access the invitation link: Accept Invitation to [facility]4.Fill in the required wang to create your account. Sign into www.[employer] with your username and password that you created in the above steps to stay up to date. You can then view a summary of results, a summary of your visits, and the ability to download your summaries to your computer or send the information securely to a physician. Remember that your healthcare information is confidential, so carefully consider who you will allow to register on the [facility] Patient Portal for access to your information. You can also access the [facility] Patient Portal on the Er[employer] byron. Simply click on Health Records under [employer] and then click on the [employer] logo. HOW TO SAFELY DISPOSE OF PRESCRIPTION MEDICATIONS Please use one of the following methods to safely dispose of your unused medications. 1.Use a drug disposal kit: the drug disposal pouch allows you to safely discard your old and unuseddrugs. Ask your nurse to give you one when you are discharged.2.Visit a local take-back location: Many local pharmacies and police departments have programs that collect old and unwanted prescriptiondrugs. Call your local pharmacy or go to http://Kwarter.CeloNova/5M1Ey4v to find one close to you.3.Make use of household items: Use cat litter or old coffee grounds to dispose medications if other options arenot available. Mix your drugs with these household products, seal them in an airtight container andthrow it into the garbage. Call [facility]: [phone] to be sure your drugs can be disposed of in this way. Some medicines may require a different approach.4.Never flush your medications down the toilet. IF YOU HAVE BEEN PRESCRIBED AN OPIOIDS FOR PAIN If you have been prescribed an opioid (such as hydrocodone, oxycodone or morphine), it is critical to understand the possible side effects and risks of opioid pain medications. Even when taken as directed, opioids can have several side effects including: Tolerance, meaning you might need to take more of a medication for the same pain relief. Nausea, vomiting and/or constipation. Sleepiness, dizziness, dry mouth, confusion, depression or itching. Physical dependence, meaning you have withdrawal symptoms when a medication is stopped ? this can develop within a few days. KNOW YOUR RESPONSIBILITIES It is important to know exactly how much and how often to take the opioid pain medications you are prescribed. Never take opioids in higher amounts or more often than prescribed. Do not combine opioids with alcohol or other drugs that cause drowsiness, such as benzodiazepines, also known as benzos,including diazepam and alprazolam, muscle relaxants or sleep aids. Never sell or share prescriptionopioids. This is illegal. Store opioids in a secure place and out of reach of others (including children, family, friends and visitors). The last page(s) of this document has been signed and retained as a CHART COPY Signatures Patient Education Materials Chest Pain, Uncertain Cause Medication Leaflets My discharge plan and instructions have been reviewed and explained to me and I,SALO NAGY understand my current condition and have read and understand these discharge instructions. I have received a written copy of the plan/instructions. If I have questions, I am aware that I should contact my doctor. Patient/Group Account Director Signature: Date/Time: Relationship to Patient: Witness Name/Signature: Date/Time: [facility]02-10-2025 Note* Exam Date Time Procedure Performing Provider Status 04/19/24 11:[address] Angiography Chest w/ Contrast LATA RAMIREZ DO; Auth (Verified) [id number] ORIGINAL EXAMINATION: CTA OF THE CHEST04/19/2024 11:49 am TECHNIQUE: CTA of the chest was performed after the administration of intravenous contrast. Multiplanar reformatted images are provided for review. MIP images are provided for review. Automated exposure control, iterative reconstruction, and/or weight based adjustment of the mA/kV was utilized to reduce the radiation dose to as low as reasonably achievable. Multiplanar and 3D reconstructions were created and reviewed on a separate workstation. COMPARISON: 10/30/2022. HISTORY: ORDERING SYSTEM PROVIDED HISTORY: Reason for Exam: dyspnea FINDINGS: There is adequate contrast opacification of the pulmonary arterial vasculature. There is no filling defect or vessel cutoff to indicate pulmonary embolus to the level of the segmental arteries. There is no right ventricular enlargement. The main pulmonary artery is enlarged which can be seen with pulmonary arterial hypertension. The thoracic aorta is normal in caliber. There is prominent aortic and coronary artery calcification. The heart is normal in size. There is no pericardial effusion. There are hilar, subcarinal, and mediastinal lymph nodes which are again enlarged. The central airways are patent. There is no pneumothorax or pleural fluid. There is diffuse emphysema. There is scarring within the lung bases. Within the peripheral right upper lobe, there is a new cavitary nodule with thick morse measuring 1.4 cm. There are a few nearby smaller satellite nodules, best seen on thin slices. There is again diffuse pattern osseous metastatic disease, grossly similar to 2022 exam. There are no acute upper abdominal findings. IMPRESSION: 1. No pulmonary embolism to the level of the segmental arteries. 2. New cavitary nodule in the right upper lobe with nearby smaller satellite nodules. This may be infectious or inflammatory, however malignancy is not excluded. Short-term follow-up CT advised. 3. Mediastinal and hilar adenopathy, similar to prior. 4. Emphysema. 5. Diffuse osseous metastatic disease, similar to prior. 6. Enlarged main pulmonary artery which can be seen with pulmonary arterial hypertension. 7. Prominent aortic and coronary artery calcification. Interpreted by: Lata Rod DO Preliminary Report By: Lata Rod DO Electronically signed By Lata Rod DO Dictated Date: 04/19/2024 11:58:00 AM Prelim Date: 04/19/2024 12:05:25 PM Sign Date: 04/19/2024 12:05:25 PM Ordering Provider: [facility]02-10-2025 Note* Exam Date Time Procedure Performing Provider Status 04/19/24 9:15 AM XR Chest 1 View CECILIA BARRIOS MD; Aut h (Verified) [id number] ORIGINAL HISTORY: Chest pain COMPARISON: 28 October 2022 FINDINGS: There is extensive irregular sclerosis throughout the visualized skeleton, and the lungs are somewhat obscured. There are mild peripheral opacities greater on the left. Pulmonary vasculature is unremarkable in appearance. IMPRESSION: Extensive metastatic disease to bone. Mild peripheral consolidation on the right. Interpreted by: Cecilia Barrios MD Preliminary Report By: Cecilia Barrios MD Electronically signed By Cecilia Barrios MD Dictated Date: 04/19/2024 9:20:24 AM Prelim Date: 04/19/2024 9:22:44 AM Sign Date: 04/19/2024 9:22:44 AM Ordering Provider: [facility]02-10-2025 Note* Exam Date Time Procedure Performing Provider Status 04/19/24 8:59 AM EKG [ED AOH] - CV OSMEL ALEXIS ; Auth (Verified) ECG Final Report Sinus rhythm Borderline prolonged SC interval Left axis deviation Abnormal R-wave progression, early transition Borderline ST depression, anterolateral leads BORDERLINE ECG Electronic Signature: OSMEL ALEXIS 04/19/2024 09:04:22 [facility]01-17-2025 Telephone encounter Note* Telephone Encounter - Yessy Maurer - 03/26/2024 1:05 PM EST This encounter opened in Error. [facility]01-17-2025 Miscellaneous Notes* Telephone Encounter - Yessy Maurer - 03/26/2024 1:05 PM EST This encounter opened in Error. documented in this encounterV[facility]12-24-2024 Telephone encounter Note * Telephone Encounter - Tiff Herr LPN - 03/02/2024 7:34 AM EST Prescription Refill Information The patient has been identified by name and date of : Yes Caregiver verified no other encounters exist for this prescription request: Yes Caregiver confirmed with patient/requestor that no other refills are due, in the near future, with this provider at this time: Yes The last office visit in the department: 02/18/2024 Does the patient have a future office visit with this provider/department: Yes Requested Prescriptions Pending Prescriptions Disp Refills tamsulosin (FLOMAX) 0.4 mg [Pharmacy Med Name: Tamsulosin HCl 0.4 MG Oral Capsule] 30 capsule 0 Sig: Take 1 capsule by mouth once daily Tiff Herr LPN March 02, 2024 7:36 AM [facility]12-24-2024 Miscellaneous Notes* Telephone Encounter - Tiff Herr LPN - 03/02/2024 7:34 AM EST Prescription Refill Information The patient has been identified by name and date of : Yes Caregiver verified no other encounters exist for this prescription request: Yes Caregiver confirmed with patient/requestor that no other refills are due, in the near future, with this provider at this time: Yes The last office visit in the department: 02/18/2024 Does the patient have a future office visit with this provider/department: Yes Requested Prescriptions Pending Prescriptions Disp Refills tamsulosin (FLOMAX) 0.4 mg [Pharmacy Med Name: Tamsulosin HCl 0.4 MG Oral Capsule] 30 capsule 0 Sig: Take 1 capsule by mouth once daily Tiff Herr LPN March 02, 2024 7:36 AM documented in this encounterV[facility]12-17-2024 Telephone encounter Note * Telephone Encounter - Tiff Herr LPN - 02/24/2024 10:42 AM EST Prescription Refill Information The patient has been identified by name and date of : Yes Caregiver verified no other encounters exist for this prescription request: Yes Caregiver confirmed with patient/requestor that no other refills are due, in the near future, with this provider at this time: Yes The last office visit in the department: 02/18/2024 Does the patient have a future office visit with this provider/department: Yes Requested Prescriptions Pending Prescriptions Disp Refills enzalutamide (XTANDI) 40 mg tablet [Pharmacy Med Name: XTANDI 40 MG TABLET] 10 Sig: Take 4 tablets (160mg) by mouth once daily as directed by physician. Tiff Herr LPN February 24, 2024 10:43 AM [facility]12-17-2024 Miscellaneous Notes* Telephone Encounter - Tiff Herr LPN - 02/24/2024 10:42 AM EST Prescription Refill Information The patient has been identified by name and date of : Yes Caregiver verified no other encounters exist for this prescription request: Yes Caregiver confirmed with patient/requestor that no other refills are due, in the near future, with this provider at this time: Yes The last office visit in the department: 02/18/2024 Does the patient have a future office visit with this provider/department: Yes Requested Prescriptions Pending Prescriptions Disp Refills enzalutamide (XTANDI) 40 mg tablet [Pharmacy Med Name: XTANDI 40 MG TABLET] 10 Sig: Take 4 tablets (160mg) by mouth once daily as directed by physician. Tiff Herr LPN February 24, 2024 10:43 AM documented in this encounterVeter[facility] Administration12-11-2024 Telephone encounter Note * Telephone Encounter - Tanja Patel LISW - 02/18/2024 3:14 PM EST SOCIAL WORK FOLLOW UP NOTE: [facility] Date of service: February 18, 2024 Salo Nagy is being seen for a follow up social work visit. Today's visit includes: patient's , Ying TOPICS ADDRESSED: VARGAS met with pt's this date following OV. She presented a letter received from [employer] patient assistance that pt has been denied for enrollment in 2024. Ying reports nothing has changed in regards to their income or insurance coverage. VARGAS encouraged Ying to appeal the denial. Per letter, appeal can be completed by turning in financial documents. Ying in agreement. SW informed her what documents would be accepted. Ying reports she will either fax to SW or bring them to the office this Friday for SW to fax to [employer]. When forms are received, SW will forward to [employer] to begin the appeal. Ying reports pt received his last shipment of Xtandi recently. VARGAS also discussed with Ying the new 2024 Medicare prescription coverage cap of $2,000. Ying reports they may be able to manage this with a payment plan if that is the last option. Ying reports pt's OOP for Xtandi prior to pt assistance this year would have been $17,000. SW to assist with the appeal and also follow up to assist with any other financial options if appeal is denied. Ying presented as somewhat overwhelmed and reports she is concerned about pt's PSA levels rising andis also taking care of her mother's medical concerns. 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 Ying became tearful while discussing this with VARGAS. VARGAS utilized empathy and normalized pt's feelings. Ying appreciative of a place to share her frustrations and feelings. She reports she does not require any follow up and will be okay. SW to keep in contact with Ying for pt's Xtandi renewal and also to check in on her from time to time. No other needs identified. PLAN: Assist with financial support applications and Continue follow up as needed F/U APPOINTMENT: PRN Assigned SW listed in Care Team tab: Yes HIRA Hassan-Salas [facility]12-11-2024 Miscellaneous Notes* Telephone Encounter - Tanja Patel LISW - 02/18/2024 3:14 PM EST SOCIAL WORK FOLLOW UP NOTE: [facility] Date of service: February 18, 2024 Salo Nagy is being seen for a follow up social work visit. Today's visit includes: patient's , Ying TOPICS ADDRESSED: VARGAS met with pt's this date following OV. She presented a letter received from [employer] patient assistance that pt has been denied for enrollment in 2024. Ying reports nothing has changed in regards to their income or insurance coverage. VARGAS encouraged Ying to appeal the denial. Per letter, appeal can be completed by turning in financial documents. Ying in agreement. VARGAS informed her what documents would be accepted. Ying reports she will either fax to SW or bring them to the office this Friday for SW to fax to [employer]. When forms are received, VARGAS will forward to [employer] to begin the appeal. Ying reports pt received his last shipment of Xtandi recently. VARGAS also discussed with Ying the new 2024 Medicare prescription coverage cap of $2,000. Ying reports they may be able to manage this with a payment plan if that is the last option. Ying reports pt's OOP for Xtandi prior to pt assistance this year would have been $17,000. SW to assist with the appeal and also follow up to assist with any other financial options if appeal is denied. Ying presented as somewhat overwhelmed and reports she is concerned about pt's PSA levels rising andis also taking care of her mother's medical concerns. 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 Ying became tearful while discussing this with SW. VARGAS utilized empathy and normalized pt's feelings. Ying appreciative of a place to share her frustrations and feelings. She reports she does not require any follow up and will be okay. SW to keep in contact with Ying for pt's Xtandi renewal and also to check in on her from time to time. No other needs identified. PLAN: Assist with financial support applications and Continue follow up as needed F/U APPOINTMENT: PRN Assigned VARGAS listed in Care Team tab: Yes HIRA Hassan-S documented in this encounterVeterans Health Administration12-11-2024 NoteHNO ID: [id number] Author: LUIS MIGUEL GUY MD Service: ? Author Type: Physician Type: Progress Notes Filed: 02/18/2024 15:25 Note Text: (Elements copied from my note dated November 26, 2023, have been reviewed and updated where appropriate, and all reflect current assessment and medical decision making from today's encounter, February 18, 2024) HISTORY OF PRESENT ILLNESS: Salo Nagy is a 72 year old male dx prostate cancer 2019 on basis of back pain found bone lesions, PSA >3000 at that time. Prostate biopsy at that time showed adenocarcinoma. Started lupron and zytiga after casodex blockade. PSA responded well, PSA tripled in fall of 2022 Switched to xtandi, delay in starting due to obtaining med. Here for follow up, reviewed PSA, rising, DT > 3 months Feeling well, passing urine well. Having some gassy GI symptoms, CT scans done, saw mediastinal adenopathy., also note osseous blastic mets. PET scan pending at [facility] was negative for actionable mutation. CLINICAL IMPRESSION: Prostate cancer metastatic to bone. PSA climbing, absolute number is still pretty low, but DT might be shortening RECOMMENDATION/PLAN: 1. continue enzalutamide. Plan taxotere if PSA DT persists less than 3 months on xtandi. Info given previously. Continuing lupron and zometa. 2. Will check PSA again in 3 months. Suspect we'll need to switch to taxotere soon. Written and verbal health teaching given to patient, patient verbalizes understanding and agrees with treatment plan. PAST MEDICAL HISTORY Diagnosis Date Aneurysm of infrarenal abdominal aorta (HCC) Bone metastases 07/24/2018 CVA (cerebral vascular accident) (HCC) 09/07/2018 Elevated LFTs 04/15/2022 Essential hypertension 09/07/2018 History of CVA (cerebrovascular accident) Malignant neoplasm of prostate (HCC) 07/10/2018 Panlobular emphysema (HCC) 09/07/2018 PAST SURGICAL HISTORY Procedure Laterality Date CYSTOSCOPY 01/09/2018 TRURL ELECTROSURG RESCJ PROSTATE BLEED COMPLETE FAMILY HISTORY Problem Relation Age of Onset Thyroid Mother Breast Cancer Mother Heart Father Heart Brother Aneurysm No Family History Social History Tobacco Use Smoking status: Former Current packs/day: 0.00 Average packs/day: 1 pack/day for 45.0 years (45.0 ttl pk-yrs) Types: Cigarettes Start date: 04/18/1974 Quit date: 04/18/2019 Years since quittin.8 Smokeless tobacco: Never Vaping Use Vaping status: Never Used Substance Use Topics Alcohol use: Never Drug use: Never ALLERGIES: ALLERGIES No Known Allergies CURRENT OUTPATIENT MEDICATIONS: pantoprazole DR (PROTONIX) 40 mg tablet Take 40 mg by mouth once daily. tamsulosin (FLOMAX) 0.4 mg Take 1 capsule by mouth once daily huladwzthkg-pgfdwquuw-frgthhym (TRELEGY ELLIPTA) 200-62.5-25 mcg inhalation powder Inhale 1 Puff as instructed once daily. B-complex with vitamin C (SUPER B COMPLEX-VITAMIN C ORAL) Take 1 tablet by mouth once daily. enzalutamide (XTANDI) 40 mg Take 4 capsules (160mg) by mouth once daily. triamcinolone acetonide (NASACORT AQ) 55 mcg nasal inhaler Use 2 Sprays in each nostril once daily. aspirin, enteric coated (ASPIRIN, ENTERIC COATED) 81 mg EC tablet Take 1 tablet by mouth once daily. docusate sodium (COLACE) 100 mg capsule Take 1 capsule by mouth twice daily as needed. rosuvastatin (CRESTOR) 5 mg tablet Take 5 mg by mouth once daily. ramipril (ALTACE) 10 mg capsule Take 10 mg by mouth once daily. metoprolol tartrate, short acting, (LOPRESSOR) 25 mg tablet TAKE 1/2 (ONE-HALF) TABLET BY MOUTH TWICE DAILY calcium carbonate-vitamin D3 (OSCAL+D) 500 mg(1,250mg) -400 unit chewable tablet Take 1 tablet by mouth once daily. hydroCHLOROthiazide (HYDRODIURIL, ESIDRIX) 12.5 mg tablet Take 12.5 mg by mouth once daily. (Patient not taking: Reported on 03/18/2023) iv contrast (will be provided with radiology test) CT Chest W -Inject, intravenously, once for 1 dose.No IV access, insert saline lock prior to the beginning of sedation, infusion, injection of imaging exam. Discontinue saline lock post exam. If Pt. has a central line or IVAD, may access for administration according to line specific nursing protocol. Once exam is complete flush line and de-access according to line specific nursing protocol in the CT contrast administration guidelines link. REVIEW OF SYSTEMS: GENERAL: No fever, night sweats, weight loss or malaise. All other reviewed and negative other than HPI. PHYSICAL EXAMINATION: VITAL SIGNS: BP 131/81 Pulse 62 Temp (Src) 97.8 (Temporal) Wt 223 lb (101.2kg) SpO2 93% GENERAL APPEARANCE: Well appearing, in no acute distress, alert and oriented x3, well-hydrated, well nourished. I spent a total of 30 minutes on the date of the service which included preparing to see the patient, khjz-ik-[id number] patient care, completing clinical documentation, obtaining and/or reviewing separately obtained history, counseling and educating t (more content not included)...[facility]12-11-2024 History of Present illness Narrative* Luis Miguel Guy MD - 02/18/2024 1:28 PM EST (Elements copied from my note dated November 26, 2023, have been reviewed and updated where appropriate, and all reflect current assessment and medical decision making from today's encounter, February 18, 2024) HISTORY OF PRESENT ILLNESS: Salo Nagy is a 72 year old male dx prostate cancer 2019 on basis of back pain found bone lesions, PSA >3000 at that time. Prostate biopsy at that time showed adenocarcinoma. Started lupron and zytiga after casodex blockade. PSA responded well, PSA tripled in fall of 2022 Switched to xtandi, delay in starting due to obtaining med. Here for follow up, reviewed PSA, rising, DT > 3 months Feeling well, passing urine well. Having some gassy GI symptoms, CT scans done, saw mediastinal adenopathy., also note osseous blastic mets. PET scan pending at [facility] was negative for actionable mutation. CLINICAL IMPRESSION: Prostate cancer metastatic to bone. PSA climbing, absolute number is still pretty low, but DT might be shortening RECOMMENDATION/PLAN: 1. continue enzalutamide. Plan taxotere if PSA DT persists less than 3 months on xtandi. Info givenpreviously. Continuing lupron and zometa. 2. Will check PSA again in 3 months. Suspect we'll need to switch to taxotere soon. Written and verbal health teaching given to patient, patient verbalizes understanding and agrees with treatment plan. PAST MEDICAL HISTORY Diagnosis Date Aneurysm of infrarenal abdominal aorta (HCC) Bone metastases 07/24/2018 CVA (cerebral vascular accident) (HCC) 09/07/2018 Elevated LFTs 04/15/2022 Essential hypertension 09/07/2018 History of CVA (cerebrovascular accident) Malignant neoplasm of prostate (HCC) 07/10/2018 Panlobular emphysema (HCC) 09/07/2018 PAST SURGICAL HISTORY Procedure Laterality Date CYSTOSCOPY 01/09/2018 TRURL ELECTROSURG RESCJ PROSTATE BLEED COMPLETE FAMILY HISTORY Problem Relation Age of Onset Thyroid Mother Breast Cancer Mother Heart Father Heart Brother Aneurysm No Family History Social History Tobacco Use Smoking status: Former Current packs/day: 0.00 Average packs/day: 1 pack/day for 45.0 years (45.0 ttl pk-yrs) Types: Cigarettes Start date: 04/18/1974 Quit date: 04/18/2019 Years since quittin.8 Smokeless tobacco: Never Vaping Use Vaping status: Never Used Substance Use Topics Alcohol use: Never Drug use: Never ALLERGIES: ALLERGIES No Known Allergies CURRENT OUTPATIENT MEDICATIONS: pantoprazole DR (PROTONIX) 40 mg tablet Take 40 mg by mouth once daily. tamsulosin (FLOMAX) 0.4 mg Take 1 capsule by mouth once daily mpsdkedghkx-dnhumvtnt-dedfpcvt (TRELEGY ELLIPTA) 200-62.5-25 mcg inhalation powder Inhale 1 Puff asinstructed once daily. B-complex with vitamin C (SUPER B COMPLEX-VITAMIN C ORAL) Take 1 tablet by mouth once daily. enzalutamide (XTANDI) 40 mg Take 4 capsules (160mg) by mouth once daily. triamcinolone acetonide (NASACORT AQ) 55 mcg nasal inhaler Use 2 Sprays in each nostril once daily. aspirin, enteric coated (ASPIRIN, ENTERIC COATED) 81 mg EC tablet Take 1 tablet by mouth once daily. docusate sodium (COLACE) 100 mg capsule Take 1 capsule by mouth twice daily as needed. rosuvastatin (CRESTOR) 5 mg tablet Take 5 mg by mouth once daily. ramipril (ALTACE) 10 mg capsule Take 10 mg by mouth once daily. metoprolol tartrate, short acting, (LOPRESSOR) 25 mg tablet TAKE 1/2 (ONE-HALF) TABLET BY MOUTH TWICE DAILY calcium carbonate-vitamin D3 (OSCAL+D) 500 mg(1,250mg) -400 unit chewable tablet Take 1 tablet by mouth once daily. hydroCHLOROthiazide (HYDRODIURIL, ESIDRIX) 12.5 mg tablet Take 12.5 mg by mouth once daily. (Patient not taking: Reported on 03/18/2023) iv contrast (will be provided with radiology test) CT Chest W -Inject, intravenously, once for 1 dose.No IV access, insert saline lock prior to the beginning of sedation, infusion, injection of imaging exam. Discontinue saline lock post exam. If Pt. has a central line or IVAD, may access for administration according to line specific nursing protocol. Once exam is complete flush line and de-accessaccording to line specific nursing protocol in the CT contrast administration guidelines link. REVIEW OF SYSTEMS: GENERAL: No fever, night sweats, weight loss or malaise. All other reviewed and negative other than HPI. PHYSICAL EXAMINATION: VITAL SIGNS: BP 131/81 Pulse 62 Temp (Src) 97.8 (Temporal) Wt 223 lb (101.2kg) SpO2 93% GENERAL APPEARANCE: Well appearing, in no acute distress, alert and oriented x3, well-hydrated, well nourished. I spent a total of 30 minutes on the date of the service which included preparing to see the patient, ibjx-co-qwlf patient care, completing clinical documentation, obtaining and/or reviewing separately obtained history, counseling and educating the patient/family/caregiver, ordering medications, neelima ts, or procedures, independently interpreting results (not separately reported), and communicating results to the patient/family/caregiver. Electronically Signed: Luis Miguel Guy MD February 18, 2024 documented in this encounterVeterans Health Administration10-31-2024 Note ORIGINAL EXAMINATION: DOUBLE CONTRAST UPPER GI SERIES 01/08/2024 TECHNIQUE: Double contrast upper GI series was performed with barium and air contrast. FLUOROSCOPY DOSE AND TYPE: Total dose: 236.5 mGy - Air Kerma COMPARISON: None HISTORY: ORDERING SYSTEM PROVIDED HISTORY: Reason for Exam: see comments GERD pain in epigastric region on palpation FINDINGS: The esophagus is of normal caliber and demonstrates normal motility. There are no mucosal abnormalities seen. The gastroesophageal junction is normal. Severe reflux was seen. A transient small sliding hiatal hernia was seen. The stomach is normal in appearance with no evidence for mass present. The duodenal bulb and sweep are normal. IMPRESSION: Transient small sliding hiatal hernia with severe reflux. No evidence for esophagitis. I have personally reviewed the images of this examination and agree with the resident's findings and interpretation. Interpreted by: Jeni Shrama MD Preliminary Report By: Becky Morgan MD Electronically signed By Jeni Sharma MD Dictated Date: 01/08/2024 11:25:04 AM Prelim Date: 01/08/2024 2:11:46 PM Sign Date: 01/08/2024 2:11:46 PM Ordering Provider: [facility]09-24-2024 Telephone encounter Note* Telephone Encounter - Derrell Adams - 12/02/2023 1:10 PM EDT Summary: Financial Navigation Spoke with Ying and let her know [employer] made a payment of $111.40 for patient's 09/03/23 DOS. She asked about DOS 11/26/23 - still pending with insurance as of today. Advised Ying to give the claim a little more time to process with insurance and reassured her we can submit the claim to [employer] if there is a balance left over. [facility]09-24-2024 Miscellaneous Notes* Telephone Encounter - Derrell Adams - 12/02/2023 1:10 PM EDTSummary: Financial Navigation Spoke with Ying and let her know [employer] made a payment of $111.40 for patient's 09/03/23 DOS. She asked about DOS 11/26/23 - still pending with insurance as of today. Advised Ying to give the claim a little more time to process with insurance and reassured her we can submit the claim to [employer] if there is a balance left over. documented in this encounterVeterans Health Administration09-23-2024 Telephone encounter Note * Telephone Encounter - Tanja Patel LISW - 12/01/2023 11:07 AM EDT SOCIAL WORK FOLLOW UP NOTE: [facility] Date of service: December 01, 2023 SW spoke to pt's who presented paperwork for pt's cancer insurance claim. reports she is hopeful to get reimbursed for prescription costs for Zytiga since pt was not approved for patient assistance program. SW completed forms and will review with physician and obtain signature. SW to fax to insurance company when completed and return originals to pt. No other needs identified. OMID Hassan [facility]09-23-2024 Miscellaneous Notes* Telephone Encounter - Tanja Patel LISW - 12/01/2023 11:07 AM EDT SOCIAL WORK FOLLOW UP NOTE: [facility] Date of service: December 01, 2023 SW spoke to pt's who presented paperwork for pt's cancer insurance claim. reports she is hopeful to get reimbursed for prescription costs for Zytiga since pt was not approved for patient assistance program. SW completed forms and will review with physician and obtain signature. SW to fax to insurance [employer] when completed and return originals to pt. No other needs identified. OMID Hassan documented in this encounterVeterans Health Administration09-18-2024 History of Present illness Narrative* Luis Miguel Guy MD - 11/26/2023 10:42 AM EDT (Elements copied from my note dated September 03, 2023, have been reviewed and updated where appropriate, and all reflect current assessment and medical decision making from today's encounter, November 26, 2023) HISTORY OF PRESENT ILLNESS: Salo Nagy is a 72 year old male dx prostate cancer 2019 on basis of back pain found bone lesions, PSA >3000 at that time. Prostate biopsy at that time showed adenocarcinoma. Started lupron and zytiga after casodex blockade. PSA responded well, PSA tripled in fall of 2022 Switched to xtandi, delay in starting due to obtaining med. Here for follow up, reviewed PSA, Feeling well, passing urine well. CLINICAL IMPRESSION: Prostate cancer metastatic to bone. PSA climbing, absolute number is still pretty low, but DT might be shortening RECOMMENDATION/PLAN: 1. continue enzalutamide. Plan taxotere if PSA DT persists less than 3 months on xtandi. Info givenpreviously. Continuing lupron and zometa. 2. Sending Guard[employer] today to assess BRCA status, also TMB. Written and verbal health teaching given to patient, patient verbalizes understanding and agrees with treatment plan. PAST MEDICAL HISTORY Diagnosis Date Aneurysm of infrarenal abdominal aorta (HCC) Bone metastases 07/24/2018 CVA (cerebral vascular accident) (HCC) 09/07/2018 Elevated LFTs 04/15/2022 Essential hypertension 09/07/2018 History of CVA (cerebrovascular accident) Malignant neoplasm of prostate (HCC) 07/10/2018 Panlobular emphysema (HCC) 09/07/2018 PAST SURGICAL HISTORY Procedure Laterality Date CYSTOSCOPY 01/09/2018 TRURL ELECTROSURG RESCJ PROSTATE BLEED COMPLETE FAMILY HISTORY Problem Relation Age of Onset Thyroid Mother Breast Cancer Mother Heart Father Heart Brother Aneurysm No Family History Social History Tobacco Use Smoking status: Former Current packs/day: 0.00 Average packs/day: 1 pack/day for 45.0 years (45.0 ttl pk-yrs) Types: Cigarettes Start date: 04/18/1974 Quit date: 04/18/2019 Years since quittin.6 Smokeless tobacco: Never Vaping Use Vaping status: Never Used Substance Use Topics Alcohol use: Never Drug use: Never ALLERGIES: ALLERGIES No Known Allergies CURRENT OUTPATIENT MEDICATIONS: tamsulosin (FLOMAX) 0.4 mg Take 1 capsule by mouth once daily exrevvzbroz-kpgttexkr-johauhic (TRELEGY ELLIPTA) 200-62.5-25 mcg inhalation powder Inhale 1 Puff asinstructed once daily. B-complex with vitamin C (SUPER B COMPLEX-VITAMIN C ORAL) Take 1 tablet by mouth once daily. enzalutamide (XTANDI) 40 mg Take 4 capsules (160mg) by mouth once daily. triamcinolone acetonide (NASACORT AQ) 55 mcg nasal inhaler Use 2 Sprays in each nostril once daily. aspirin, enteric coated (ASPIRIN, ENTERIC COATED) 81 mg EC tablet Take 1 tablet by mouth once daily. docusate sodium (COLACE) 100 mg capsule Take 1 capsule by mouth twice daily as needed. rosuvastatin (CRESTOR) 5 mg tablet Take 5 mg by mouth once daily. ramipril (ALTACE) 10 mg capsule Take 10 mg by mouth once daily. metoprolol tartrate, short acting, (LOPRESSOR) 25 mg tablet TAKE 1/2 (ONE-HALF) TABLET BY MOUTH TWICE DAILY calcium carbonate-vitamin D3 (OSCAL+D) 500 mg(1,250mg) -400 unit chewable tablet Take 1 tablet by mouth once daily. hydroCHLOROthiazide (HYDRODIURIL, ESIDRIX) 12.5 mg tablet Take 12.5 mg by mouth once daily. (Patient not taking: Reported on 03/18/2023) iv contrast (will be provided with radiology test) CT Chest W -Inject, intravenously, once for 1 dose.No IV access, insert saline lock prior to the beginning of sedation, infusion, injection of imaging exam. Discontinue saline lock post exam. If Pt. has a central line or IVAD, may access for administration according to line specific nursing protocol. Once exam is complete flush line and de-accessaccording to line specific nursing protocol in the CT contrast administration guidelines link. REVIEW OF SYSTEMS: GENERAL: No fever, night sweats, weight loss or malaise. All other reviewed and negative other than HPI. PHYSICAL EXAMINATION: VITAL SIGNS: BP 112/70 Pulse 60 Temp (Src) 97.7 (Temporal) Wt 220 lb (99.8kg) SpO2 91% GENERAL APPEARANCE: Well appearing, in no acute distress, alert and oriented x3, well-hydrated, well nourished. I spent a total of 30 minutes on the date of the service which included preparing to see the patient, okok-to-hilx patient care, completing clinical documentation, obtaining and/or reviewing separately obtained history, counseling and educating the patient/family/caregiver, ordering medications, neelima ts, or procedures, independently interpreting results (not separately reported), and communicating results to the patient/family/caregiver. Electronically Signed: Luis Miguel Guy MD November 26, 2023 documented in this encounterVeterans Health Administration09-09-2024 Telephone encounter Note * Telephone Encounter - Tiff Herr LPN - 11/17/2023 3:44 PM EDT Prescription Refill Information The patient has been identified by name and date of : Yes Caregiver verified no other encounters exist for this prescription request: Yes Caregiver confirmed with patient/requestor that no other refills are due, in the near future, with this provider at this time: Yes The last office visit in the department: 08/14/23 Does the patient have a future office visit with this provider/department: Yes Requested Prescriptions Pending Prescriptions Disp Refills tamsulosin (FLOMAX) 0.4 mg [Pharmacy Med Name: Tamsulosin HCl 0.4 MG Oral Capsule] 30 capsule 0 Sig: Take 1 capsule by mouth once daily Tiff Herr LPN November 17, 2023 3:44 PM [facility]09-09-2024 Miscellaneous Notes* Telephone Encounter - Tiff Herr LPN - 11/17/2023 3:44 PM EDT Prescription Refill Information The patient has been identified by name and date of : Yes Caregiver verified no other encounters exist for this prescription request: Yes Caregiver confirmed with patient/requestor that no other refills are due, in the near future, with this provider at this time: Yes The last office visit in the department: 08/14/23 Does the patient have a future office visit with this provider/department: Yes Requested Prescriptions Pending Prescriptions Disp Refills tamsulosin (FLOMAX) 0.4 mg [Pharmacy Med Name: Tamsulosin HCl 0.4 MG Oral Capsule] 30 capsule 0 Sig: Take 1 capsule by mouth once daily Tiff Herr LPN November 17, 2023 3:44 PM documented in this encounterVeterans Health Administration08-02-2024 Telephone encounter Note * Telephone Encounter - Prabha Cary RN - 10/10/2023 11:43 AM EDT called and left a VM stating she received a EOB in the mail from patients insurance which stated patient had an OV with Dr. Guy on 03/18/23 and the visit was not covered due to Dr. Guy being out of network. This nurse spoke to PSS who advised call the billing customer service line to discuss. received a call back from this nurse with the number to call. stated understanding. Prabha Cary RN [facility]08-02-2024 Miscellaneous Notes* Telephone Encounter - Prabha Cary RN - 10/10/2023 11:43 AM EDT called and left a VM stating she received a EOB in the mail from patients insurance which stated patient had an OV with Dr. Guy on 03/18/23 and the visit was not covered due to Dr. Guy being out of network. This nurse spoke to PSS who advised call the billing customer service line to discuss. received a call back from this nurse with the number to call. stated understanding. Prabha Cary RN documented in this encounterVeterans Health Administration07-15-2024 Telephone encounter Note * Telephone Encounter - Gita Ortiz LPN - 09/22/2023 2:19 PM EDT Rx req received from pharmacy. Next apt here 11/26/23. Pt due for refill Gita Ortiz LPN [facility]07-15-2024 Miscellaneous Notes* Telephone Encounter - Gita Ortiz LPN - 09/22/2023 2:19 PM EDT Rx req received from pharmacy. Next apt here 11/26/23. Pt due for refill Gita Ortiz LPN documented in this encounterVeterans Health Administration07-01-2024 Telephone encounter Note * Telephone Encounter - Arias Lew - 09/08/2023 12:46 PM EDT This patient has successfully been enrolled in a program for assistance with Prostate Cancer, Lupron Depot and Zometa from [facility]. The authorization dates are 08/09/2023 - 08/07/2024 for the amount of $8,000.00. This information has been added to [employer]. [facility]07-01-2024 Miscellaneous Notes* Telephone Encounter - Arias Lew - 09/08/2023 12:46 PM EDT This patient has successfully been enrolled in a program for assistance with Prostate Cancer, Lupron Depot and Zometa from [facility]. The authorization dates are 08/09/2023 - 08/07/2024 for the amount of $8,000.00. This information has been added to [employer]. documented in this encounterVeterans Health Administration06-26-2024 History of Present illness Narrative* Luis Miguel Guy MD - 09/03/2023 10:49 AM EDT (Elements copied from my note dated June 10, 2023, have been reviewed and updated where appropriate, and all reflect current assessment and medical decision making from today's encounter, September 03, 2023) HISTORY OF PRESENT ILLNESS: Salo Nagy is a 72 year old male dx prostate cancer 2019 on basis of back pain found bone lesions, PSA >3000 at that time. Prostate biopsy at that time showed adenocarcinoma. Started lupron and zytiga after casodex blockade. PSA responded well, PSA tripled in fall Switched to xtandi, delay in starting due to obtaining med. Here for follow up, reviewed PSA, probably responding given delay in starting xtandi (started mid February) Feeling well, passing urine well. CLINICAL IMPRESSION: Prostate cancer metastatic to bone. PSA climbing, absolute number is still pretty low, but DT might be shortening RECOMMENDATION/PLAN: 1. continue enzalutamide. Plan taxotere if PSA DT persists less than 3 months on xtandi. Info givenpreviously. Continuing lupron and zometa. Written and verbal health teaching given to patient, patient verbalizes understanding and agrees with treatment plan. PAST MEDICAL HISTORY Diagnosis Date Aneurysm of infrarenal abdominal aorta (HCC) Bone metastases 07/24/2018 CVA (cerebral vascular accident) (HCC) 09/07/2018 Elevated LFTs 04/15/2022 Essential hypertension 09/07/2018 History of CVA (cerebrovascular accident) Malignant neoplasm of prostate (HCC) 07/10/2018 Panlobular emphysema (HCC) 09/07/2018 PAST SURGICAL HISTORY Procedure Laterality Date CYSTOSCOPY 01/09/2018 TRURL ELECTROSURG RESCJ PROSTATE BLEED COMPLETE FAMILY HISTORY Problem Relation Age of Onset Thyroid Mother Breast Cancer Mother Heart Father Heart Brother Aneurysm No Family History Social History Tobacco Use Smoking status: Former Packs/day: 1.00 Years: 45.00 Additional pack years: 0.00 Total pack years: 45.00 Types: Cigarettes Quit date: 04/18/2019 Years since quittin.3 Smokeless tobacco: Never Vaping Use Vaping Use: Never used Substance Use Topics Alcohol use: Never Drug use: Never ALLERGIES: ALLERGIES No Known Allergies CURRENT OUTPATIENT MEDICATIONS: tamsulosin (FLOMAX) 0.4 mg Take 1 capsule by mouth once daily ahkyzbuelmz-jghmkxvvp-dztimoxc (TRELEGY ELLIPTA) 200-62.5-25 mcg inhalation powder Inhale 1 Puff asinstructed once daily. B-complex with vitamin C (SUPER B COMPLEX-VITAMIN C ORAL) Take 1 tablet by mouth once daily. enzalutamide (XTANDI) 40 mg Take 4 capsules (160mg) by mouth once daily. triamcinolone acetonide (NASACORT AQ) 55 mcg nasal inhaler Use 2 Sprays in each nostril once daily. aspirin, enteric coated (ASPIRIN, ENTERIC COATED) 81 mg EC tablet Take 1 tablet by mouth once daily. docusate sodium (COLACE) 100 mg capsule Take 1 capsule by mouth twice daily as needed. rosuvastatin (CRESTOR) 5 mg tablet Take 5 mg by mouth once daily. ramipril (ALTACE) 10 mg capsule Take 10 mg by mouth once daily. metoprolol tartrate, short acting, (LOPRESSOR) 25 mg tablet TAKE 1/2 (ONE-HALF) TABLET BY MOUTH TWICE DAILY calcium carbonate-vitamin D3 (OSCAL+D) 500 mg(1,250mg) -400 unit chewable tablet Take 1 tablet by mouth once daily. hydroCHLOROthiazide (HYDRODIURIL, ESIDRIX) 12.5 mg tablet Take 12.5 mg by mouth once daily. (Patient not taking: Reported on 03/18/2023) iv contrast (will be provided with radiology test) CT Chest W -Inject, intravenously, once for 1 dose.No IV access, insert saline lock prior to the beginning of sedation, infusion, injection of imaging exam. Discontinue saline lock post exam. If Pt. has a central line or IVAD, may access for administration according to line specific nursing protocol. Once exam is complete flush line and de-accessaccording to line specific nursing protocol in the CT contrast administration guidelines link. REVIEW OF SYSTEMS: GENERAL: No fever, night sweats, weight loss or malaise. All other reviewed and negative other than HPI. PHYSICAL EXAMINATION: VITAL SIGNS: BP 117/75 Pulse 60 Temp (Src) 97.3 (Temporal) Wt 218 lb 8 oz (99.1kg) SpO2 98% GENERAL APPEARANCE: Well appearing, in no acute distress, alert and oriented x3, well-hydrated, well nourished. I spent a total of 30 minutes on the date of the service which included preparing to see the patient, [id number] patient care, completing clinical documentation, obtaining and/or reviewing separately obtained history, counseling and educating the patient/family/caregiver, ordering medications, neelima ts, or procedures, independently interpreting results (not separately reported), and communicating results to the patient/family/caregiver. Electronically Signed: Luis Miguel Guy MD September 03, 2023 documented in this encounterVeterans Health Administration04-22-2024 Telephone encounter Note * Telephone Encounter - Tiff Herr LPN - 06/30/2023 7:26 AM EDT Patient has been identified by name and date of : Yes Requested Prescriptions Pending Prescriptions Disp Refills tamsulosin (FLOMAX) 0.4 mg [Pharmacy Med Name: Tamsulosin HCl 0.4 MG Oral Capsule] 30 capsule 0 Sig: Take 1 capsule by mouth once daily RX INSTRUCTIONS: Patient aware RX will be sent to pharmacy. No need to notify patient. Tiff Herr LPN [facility]04-22-2024 Miscellaneous Notes* Telephone Encounter - Tiff Herr LPN - 06/30/2023 7:26 AM EDT Patient has been identified by name and date of : Yes Requested Prescriptions Pending Prescriptions Disp Refills tamsulosin (FLOMAX) 0.4 mg [Pharmacy Med Name: Tamsulosin HCl 0.4 MG Oral Capsule] 30 capsule 0 Sig: Take 1 capsule by mouth once daily RX INSTRUCTIONS: Patient aware RX will be sent to pharmacy. No need to notify patient. Tiff Herr LPN documented in this encounterVeterans Health Administration04-02-2024 History of Present illness Narrative* Carla Pierson RN - 06/10/2023 11:33 AM EDT Pt wears well fitting dentures. documented in this encounterVeterans Health Administration04-02-2024 History of Present illness Narrative* Luis Miguel Guy MD - 06/10/2023 10:33 AM EDT (Elements copied from my note dated March 18, 2023, have been reviewed and updated where appropriate, and all reflect current assessment and medical decision making from today's encounter, June 10, 2023) HISTORY OF PRESENT ILLNESS: Salo Nagy is a 72 year old male dx prostate cancer 2018 on basis of back pain found bone lesions, PSA >3000 at that time. Prostate biopsy at that time showed adenocarcinoma. Started lupron and zytiga after casodex blockade. PSA responded well, PSA tripled in fall of 2022 Switched to xtandi, delay in starting due to obtaining med. Here for follow up, reviewed PSA, probably responding given delay in starting xtandi (started mid February) Feeling well, CLINICAL IMPRESSION: Prostate cancer metastatic to bone. PSA climbing, slower RECOMMENDATION/PLAN: 1. continue enzalutamide. Plan taxotere if PSA DT less than 3 months on xtandi. Info given previously. Continuing lupron and zometa. Written and verbal health teaching given to patient, patient verbalizes understanding and agrees with treatment plan. PAST MEDICAL HISTORY Diagnosis Date Aneurysm of infrarenal abdominal aorta (HCC) Bone metastases 07/24/2018 CVA (cerebral vascular accident) (HCC) 09/07/2018 Elevated LFTs 04/15/2022 Essential hypertension 09/07/2018 History of CVA (cerebrovascular accident) Malignant neoplasm of prostate (HCC) 07/10/2018 Panlobular emphysema (HCC) 09/07/2018 PAST SURGICAL HISTORY Procedure Laterality Date CYSTOSCOPY 01/09/2018 TRURL ELECTROSURG RESCJ PROSTATE BLEED COMPLETE FAMILY HISTORY Problem Relation Age of Onset Thyroid Mother Breast Cancer Mother Heart Father Heart Brother Aneurysm No Family History Social History Tobacco Use Smoking status: Former Packs/day: 1.00 Years: 45.00 Additional pack years: 0.00 Total pack years: 45.00 Types: Cigarettes Quit date: 04/18/2019 Years since quittin.1 Smokeless tobacco: Never Vaping Use Vaping Use: Never used Substance Use Topics Alcohol use: Never Drug use: Never ALLERGIES: ALLERGIES No Known Allergies CURRENT OUTPATIENT MEDICATIONS: tamsulosin (FLOMAX) 0.4 mg Take 1 capsule by mouth once daily. yteborndnul-pykcvsmwb-raoaittw (TRELEGY ELLIPTA) 200-62.5-25 mcg inhalation powder Inhale 1 Puff asinstructed once daily. B-complex with vitamin C (SUPER B COMPLEX-VITAMIN C ORAL) Take 1 tablet by mouth once daily. enzalutamide (XTANDI) 40 mg Take 4 capsules (160mg) by mouth once daily. triamcinolone acetonide (NASACORT AQ) 55 mcg nasal inhaler Use 2 Sprays in each nostril once daily. aspirin, enteric coated (ASPIRIN, ENTERIC COATED) 81 mg EC tablet Take 1 tablet by mouth once daily. docusate sodium (COLACE) 100 mg capsule Take 1 capsule by mouth twice daily as needed. rosuvastatin (CRESTOR) 5 mg tablet Take 5 mg by mouth once daily. ramipril (ALTACE) 10 mg capsule Take 10 mg by mouth once daily. metoprolol tartrate, short acting, (LOPRESSOR) 25 mg tablet TAKE 1/2 (ONE-HALF) TABLET BY MOUTH TWICE DAILY calcium carbonate-vitamin D3 (OSCAL+D) 500 mg(1,250mg) -400 unit chewable tablet Take 1 tablet by mouth once daily. hydroCHLOROthiazide (HYDRODIURIL, ESIDRIX) 12.5 mg tablet Take 12.5 mg by mouth once daily. (Patient not taking: Reported on 03/18/2023) iv contrast (will be provided with radiology test) CT Chest W -Inject, intravenously, once for 1 dose.No IV access, insert saline lock prior to the beginning of sedation, infusion, injection of imaging exam. Discontinue saline lock post exam. If Pt. has a central line or IVAD, may access for administration according to line specific nursing protocol. Once exam is complete flush line and de-accessaccording to line specific nursing protocol in the CT contrast administration guidelines link. REVIEW OF SYSTEMS: GENERAL: No fever, night sweats, weight loss or malaise. All other reviewed and negative other than HPI. PHYSICAL EXAMINATION: VITAL SIGNS: BP 111/66 Pulse 61 Temp 97.9 Wt 224 lb 8 oz (101.8kg) SpO2 94% GENERAL APPEARANCE: Well appearing, in no acute distress, alert and oriented x3, well-hydrated, well nourished. I spent a total of 30 minutes on the date of the service which included preparing to see the patient, [id number] patient care, completing clinical documentation, obtaining and/or reviewing separately obtained history, counseling and educating the patient/family/caregiver, ordering medications, neelima ts, or procedures, independently interpreting results (not separately reported), and communicating results to the patient/family/caregiver. Electronically Signed: Luis Miguel Guy MD June 10, 2023 documented in this encounterVeterans Health Administration12-12-2023 Miscellaneous Notes* Telephone Encounter - GordoMeagan RN - 02/18/2023 12:50 PM EST ORAL ANTI-CANCER AGENTS FOLLOW-UP PHONE CALL Patient identified by name and date of . YES Patient is on day 8 of Xtandi (enzalutamide) for Prostate Cancer. Patient states he feel ok, no major effects States he just feels more tired, but he also has been helping a family member with some projects and doing more than he usually does. Denies other symptoms. SYMPTOM ASSESSMENT Headache: No Visual Changes: No Dizziness: No Do you have any periods of confusion? No Mood changes: No Mouth or throat pain: No Appetite: no changes in appetite, appetite good Taste changes: No Nausea: No Vomiting: No Heartburn: No. Weight gain/loss: Unable to assess Episodes of palpitations/chest discomfort/pressure/pain No Shortness of breath: No Cough: No Diarrhea: no Constipation: no Bladder/Urinary Changes: None Pain: No=0 (pain 0 on a scale of 0-10). Fever: No Chills: No Cold sensitivity: No Numbness/weakness: Yes, mainly in fingertips and some in toes. Has mentioned it to Dr. Guy and to his PCP prior to start. Neither are sure why he is having neuropathy. Denies any worse on Xtandi Edema: No Skin changes: No Itching: No Yellowing of skin or eyes: No Musculoskeletal/joint changes/issues No Bleeding issues: No Activity Level (0-100%): decreased Do you need to take naps? Yes; Do you wake up feeling rested? Yes Does the patient need interventions or same day appointment:No ADDITIONAL FOLLOW UP: The next outreach call is due on: as needed and was scheduled No, appointment made The following lab tests are due: 03/17/23 Verified patient is aware of next appointment in the cancer center: Yes. Verified patient verbalized how to correctly refill the oral agent prescription. Yes Does the patient have any financial difficulties affording this medication? No Patient verbalizes understanding of when to seek Medical Attention? YES Patient verbalizes understanding of after-hours and weekend phone number? YES Patient verbalized importance of medication compliance in taking the oral agent as prescribed. Patient instructed to call if unable to comply. Meagan Caro RN documented in this encounterVeterans Health Administration12-05-2023 Miscellaneous Notes* Telephone Encounter - Meagan Caro RN - 02/11/2023 4:22 PM EST Patient calls and states that they received the Xtandi today and patient started drug today. Patient has lab/OV on 03/18/22. They are aware that I will call next week for update but to call in with anyconcerns in the interim. Julia Caro RN documented in this encounterVeterans Health Administration11-21-2023 Miscellaneous Notes* Telephone Encounter - Tanja Patel LISW - 01/28/2023 2:07 PM EST SOCIAL WORK FOLLOW UP NOTE: CANCER CENTER Date of service: January 28, 2023 Salo Nagy is being seen for a follow up social work visit. Today's visit includes: spouse and patient TOPICS ADDRESSED: SW called and spoke to [facility]. They report they need an additional form form pt regarding financials and assets. SW called and spoke to pt's . She reports she and pt will be in on Friday to complete form with SW. SW to fax to [facility] once completed. PLAN: Assist with financial support applications and Continue follow up as needed F/U APPOINTMENT: PRN Assigned SW listed in Care Team tab: Yes OMID Hassan * Telephone Encounter - Meagan Caro RN - 01/23/2023 4:11 PM EST Call to patient, spoke with . They have not heard from anyone this week about the status of Xtandi or that it is going to be delivered. She is aware that I will reach out to HIRA King and will call her when we know more. expressed appreciation for the phone call. Julia Caro, RN documented in this encounterVeterans Health Administration11-15-2023 Procedure [facility]11-04-2023 Procedure [facility]11-03-2023 Miscellaneous Notes* Telephone Encounter - Tiff Herr LPN - 01/10/2023 1:01 PM EDT Spoke with pts. , informed the billing for 12/24 treatment has been changed and information sent to billing to resubmit to pts. Insurance carrier. voiced understanding. Tiff Herr LPN * Telephone Encounter - Tiff Herr LPN - 01/10/2023 10:25 AM EDT Ordering physician was changed, please contact billing to have rebilled. Tiff Herr LPN * Telephone Encounter - Alaina Espino - 01/10/2023 8:35 AM EDT Spouse called stating she received letter from insurance stating they are not paying for treatment on 12/24 due to provider being out of network. 12/[address] Bee as ordering/referring provider instead of Dr. Guy. Please advise patient. documented in this encounterVeterans Health Administration11-01-2023 Miscellaneous Notes* Telephone Encounter - Venu Wong - 01/08/2023 10:59 AM EDT Submitted to [employer], DOS 12/24/22 for $83.92. documented in this encounterVeterans Health Administration10-23-2023 Miscellaneous Notes* Telephone Encounter - Arias Lew - 12/30/2022 10:06 AM EDT I spoke with the patient today. Patient is active with [employer], LOC 80%, $ 0.00 deductible and has $ 0.00 remaining, $ 4200.00 O-O-P has $ 3393.62 remaining. An estimate shows the patient's financial responsibility is $ 321.62 for each treatment in 2022 until the O-O-P max is reached. The patient stated understanding. Reference # [id number] documented in this encounterVeterans Health Administration10-20-2023 Miscellaneous Notes* Telephone Encounter - Tanja Patel LISW - 12/27/2022 8:51 AM EDT SOCIAL WORK FOLLOW UP NOTE: CANCER CENTER Date of service: December 27, 2022 Salo Nagy is being seen for a follow up social work visit. Today's visit includes: spouse and patient TOPICS ADDRESSED: SW met with pt and this date to complete Xtandi application. Pt reports he takes predisone every other day while on Zytiga. He reports he has 6 days left which he pans to take while we wait on Xtandi application processing. Pt and asking if he should discontinue the predn isone at the same time as the Zytiga or if that still applies while taking Ztandi. Please advise pt. Please call , Ying, at [phone]. Please note there may be a time period of a few days when pt stops taking Zytiga before Xtandi can be secured. HIRA Hassan-Salas documented in this [facility]10-19-2023 Miscellaneous Notes* Telephone Encounter - Tanja Patel LISW - 12/26/2022 10:08 AM EDT SOCIAL WORK FOLLOW UP NOTE: CANCER CENTER Date of service: December 26, 2022 Salo Nagy is being seen for a follow up social work visit. Today's visit includes: Spouse, Ying TOPICS ADDRESSED: finances and medication assistance SW spoke with pt's on the phone this date. She reports she and pt met with Dr. Guy yesterday and pt will be switching to Xtandi medication. Ying reports the med pratt is $15,964/month withinsurance covering $14,260/ month leaving pt with an OOP of $1704/month. reports medication isunaffordable and reports she checked GoodRx but no assistance available there. SW discussed the [employer] patient assistance program. Pt and report they can come in tomorrow morning and sign application for assistance. SW prepped application this date to have ready for pt to sign. SW will discuss with physician and obtain his signature as well. Sw to fax to [employer] once complete. PLAN: Assist with financial support applications and Continue follow up as needed F/U APPOINTMENT: PRN Assigned SW listed in Care Team tab: Yes HIRA Hassan-Salas documented in this encounterVeterans Health Administration10-17-2023 History of Present illness Narrative* Tanja Pratt - 12/24/2022 12:46 PM EDT [facility] received prescription(s) for Xtandi from Dr. Gyu's office. Benefits investigation was conducted, indicating that a prior authorization is required by patient's insurance plan with [employer]. Encounter will be updated once prior authorization has been submitted by [facility]. Tanja Pratt CPhT [facility], Oncology P: / F: documented in this encounterVeterans Health Administration10-17-2023 History of Present illness Narrative* Luis Miguel Guy MD - 12/24/2022 9:44 AM EDT HISTORY OF PRESENT ILLNESS: Salo Nagy is a 72 year old male dx prostate cancer 2019 on basis of back pain found bone lesions, PSA >3000 at that time. Prostate biopsy at that time showed adenocarcinoma. Started lupron and zytiga after casodex blockade. PSA responded well, same meds continue Here for follow up, doing well, just notes fatigue. Here for follow up, reviewed PSA, tripled since September 2022 CLINICAL IMPRESSION: Prostate cancer metastatic to bone. PSA climbing RECOMMENDATION/PLAN: 1. Switch aa/pred to enzalutamide, we admit not likely to change trajectory of disease, but patientunderstandably hesitant to start taxotere chemotherapy. Plan taxotere if enzalutamide does not favorably impact PSA. Info given today. Continuing lupron and zometa. Written and verbal health teaching given to patient, patient verbalizes understanding and agrees with treatment plan. PAST MEDICAL HISTORY Diagnosis Date Aneurysm of infrarenal abdominal aorta (HCC) Bone metastases 07/24/2018 CVA (cerebral vascular accident) (HCC) 09/07/2018 Elevated LFTs 04/15/2022 Essential hypertension 09/07/2018 History of CVA (cerebrovascular accident) Malignant neoplasm of prostate (HCC) 07/10/2018 Panlobular emphysema (HCC) 09/07/2018 PAST SURGICAL HISTORY Procedure Laterality Date CYSTOSCOPY 01/09/2018 TRURL ELECTROSURG RESCJ PROSTATE BLEED COMPLETE FAMILY HISTORY Problem Relation Age of Onset Thyroid Mother Breast Cancer Mother Heart Father Heart Brother Aneurysm No Family History Social History Tobacco Use Smoking status: Former Packs/day: 1.00 Years: 45.00 Additional pack years: 0.00 Total pack years: 45.00 Types: Cigarettes Quit date: 04/18/2019 Years since quittin.6 Smokeless tobacco: Never Vaping Use Vaping Use: Never used Substance Use Topics Alcohol use: Never Drug use: Never ALLERGIES: ALLERGIES No Known Allergies CURRENT OUTPATIENT MEDICATIONS: abiraterone (ZYTIGA) 250 mg tablet Take 4 tablets (1,000mg) by mouth once daily. predniSONE (DELTASONE) 5 mg tablet Take 1 tablet by mouth once daily. triamcinolone acetonide (NASACORT AQ) 55 mcg nasal inhaler Use 2 Sprays in each nostril once daily. aspirin, enteric coated (ASPIRIN, ENTERIC COATED) 81 mg EC tablet Take 1 tablet by mouth once daily. docusate sodium (COLACE) 100 mg capsule Take 1 capsule by mouth twice daily as needed. rosuvastatin (CRESTOR) 5 mg tablet Take 5 mg by mouth once daily. ramipril (ALTACE) 10 mg capsule Take 10 mg by mouth once daily. metoprolol tartrate, short acting, (LOPRESSOR) 25 mg tablet TAKE 1/2 (ONE-HALF) TABLET BY MOUTH TWICE DAILY calcium carbonate-vitamin D3 (OSCAL+D) 500 mg(1,250mg) -400 unit chewable tablet Take 1 tablet by mouth once daily. hydroCHLOROthiazide (HYDRODIURIL, ESIDRIX) 12.5 mg tablet Take 12.5 mg by mouth once daily. iv contrast (will be provided with radiology test) CT Chest W -Inject, intravenously, once for 1 dose.No IV access, insert saline lock prior to the beginning of sedation, infusion, injection of imaging exam. Discontinue saline lock post exam. If Pt. has a central line or IVAD, may access for administration according to line specific nursing protocol. Once exam is complete flush line and de-accessaccording to line specific nursing protocol in the CT contrast administration guidelines link. REVIEW OF SYSTEMS: GENERAL: No fever, night sweats, weight loss or malaise. All other reviewed and negative other than HPI. PHYSICAL EXAMINATION: VITAL SIGNS: BP 124/74 Pulse 58 Temp 96.7 Ht 5' 10.079 (1.78m) Wt 214 lb 8 oz (97.3kg) SpO2 96% BMI 30.71 kg/(m^2). GENERAL APPEARANCE: Well appearing, in no acute distress, alert and oriented x3, well-hydrated, well nourished. I spent a total of 45 minutes on the date of the service which included preparing to see the patient, [id number] patient care, completing clinical documentation, obtaining and/or reviewing separately obtained history, counseling and educating the patient/family/caregiver, ordering medications, neelima ts, or procedures, independently interpreting results (not separately reported), and communicating results to the patient/family/caregiver. Electronically Signed: Luis Miguel Guy MD September 30, 2022 11:34 AM documented in this encounterVeterans Health Administration09-19-2023 Miscellaneous Notes* Telephone Encounter - Shawna Mcpherson - 11/26/2022 1:12 PM EDT Pt's spouse calling in stating pt needs refill of: abiraterone (ZYTIGA) 250 mg tablet- Pt has 7 days left Please send to: [id number] [place] [id number] [facility] [phone] [id number] Sending high priority due to pt's spouse wanting to make sure the pharmacy is able to get medication in time and that there is no delay in treatment documented in this encounterVeterans Health Administration09-19-2023 Miscellaneous Notes* Telephone Encounter - Tanja Paetl LISW - 11/26/2022 12:21 PM EDT SOCIAL WORK FOLLOW UP NOTE: [facility] Date of service: November 26, 2022 Salo Nagy is being seen for a follow up social work visit. Today's visit includes: spouse TOPICS ADDRESSED: finances - VARGAS received call from pt's , Ying, this date. Ying reports she is continuing to look for resources to assist with the cost of pt's Zytiga. SW had recently advised to utilize GoodRx which she did for last refill at $186.90. [facility]ing [facility] was [facility] other options for her including [facility]. Ying reports pt has 7 days left of Zytiga and she is wondering what the best option may be. She reports she found [facility] which is a mail order pharmacy based in [place]. VARGAS discussed with Ying thatshe will do some research and either call her back or ask financial navigator to call her this dateto discuss options. VARGAS called financial navigator this date and discussed options for pt's Zytiga. Navigator reports etienne do research and reach out to Ying this date regarding most affordable option for Zytiga. SW to follow along and assist as needed. PLAN: Assist with financial support applications, Continue follow up as needed , and Referral to financial navigator F/U APPOINTMENT: PRN Assigned SW listed in Care Team tab: Yes OMID Hassan documented in this encounterVeterans Health Administration08-23-2023 Note ORIGINAL EXAMINATION: CTA OF THE CHEST10/30/2022 3:54 pm CTA CHEST WITH CONTRAST TECHNIQUE: CTA of the chest was performed after the administration of intravenous contrast. Multiplanar reformatted images are provided for review. MIP images are provided for review. Automated exposure control, iterative reconstruction, and/or weight based adjustment of the mA/kV was utilized to reduce the radiation dose to as low as reasonably achievable. CTA of the thorax was acquired in the axial plane. Coronal and sagittal reformatted images were reviewed. Three dimensional reconstructions were created on a separate workstation. COMPARISON: Two-view chest 10/28/2022. HISTORY: ORDERING SYSTEM PROVIDED HISTORY: Reason for Exam: elevated D-dimer PT HAS BEEN SOB LATELY. PT HAD A LOT OF BLOOD CLOTS AFTER HIS COVID SHOT AND WAS RECENTLY TAKEN OFF OF HIS BLOOD THINNER FINDINGS: There is satisfactory pulmonary arterial contrast opacification with no evidence of pulmonary embolic disease. There are no pleural or pericardial effusions. The adrenal glands are normal. Thoracic aortic caliber is normal. There are no enlarged mediastinal or hilar lymph nodes. There is extensive coronary artery calcification. Lung window images: Right lung: Advanced upper lobe emphysema. No lung masses or nodules or infiltrates. Left lung: Advanced emphysema. There are no lung masses or nodules. There are no infiltrates. Widespread blastic osseous metastatic disease involving the clavicles and sternum and scapulae in bilateral ribs and thoracic and visualized upper lumbar spine no evidence of pathologic fracture. IMPRESSION: 1. No evidence of pulmonary embolic disease. No acute intrathoracic process. 2. Extensive blastic osseous metastatic disease. 3. Advanced bilateral upper lobe emphysema. Interpreted by: Hipolito Patel Preliminary Report By: Hipolito Patel Electronically signed By Hipolito Patel Dictated Date: 10/30/2022 3:57:27 PM Prelim Date: 10/30/2022 4:04:24 PM Sign Date: 10/30/2022 4:04:24 PM Ordering Provider: [facility] Miscellaneous Notes* Telephone Encounter - Alaina Rodrigues - 07/10/2022 8:02 AM EDT Message relayed to patient * Telephone Encounter - Colton Alvarez DO - 07/09/2022 9:45 PM EDT Can let him know his PSA is essentially stable compared to a year ago. Colton Alvarez DO * Telephone Encounter - Renita Van - 07/09/2022 10:04 AM EDT Patient needs OV w/ Dr. Guy w/ [facility] on 10/01, with labs on 09/30. Renita Van documented in this encounterVeterans Health Administration04-20-2023 Miscellaneous Notes* Telephone Encounter - Tiff No LPN - 06/27/2022 11:07 AM EDT Patient has been identified by name and date of : Yes Requested Prescriptions Pending Prescriptions Disp Refills predniSONE (DELTASONE) 5 mg tablet 90 tablet 2 Sig: Take 1 tablet by mouth once daily. RX INSTRUCTIONS: Patient aware RX will be sent to pharmacy. No need to notify patient. Tiff No LPN documented in this encounterVeterans Health Administration04-03-2023 Miscellaneous Notes* Telephone Encounter - Alaina Rodrigues - 06/10/2022 5:42 PM EDT Appointment reminder mailed. * Telephone Encounter - Shawna Mcpherson - 06/04/2022 3:49 PM EDT 1st attempt: MC sent documented in this encounterVeterans Health Administration03-02-2023 Miscellaneous Notes* Telephone Encounter - Amarilis Hernandez LPN - 05/09/2022 11:50 AM EST PA for Zytiga completed via cover my meds PA approved thru 05/09/2023. PA #[id number]. Approval faxed to [facility]. Amarilis Hernandez LPN documented in this encounterVeterans Health Administration03-01-2023 Miscellaneous Notes* Telephone Encounter - HIRA Hassan - 05/08/2022 3:49 PM EST SW received call this date from pt's reporting they received a letter from [employer] assist stating they have been denied for assistance with Lupron. She reports she has been working with the financial navigator to attempt an appeal but he has not been able to get in touch with [employer]. Pt's asking if SW can try as well. SW to call [employer] tomorrow and initiate an appeal if possible. Pt's also reported she was unable to utilize previously given GoodRx coupon for Zytiga [facility] not being able to acquire the Zytiga. Pt's called and confirmed that [facility] has the medication in stock. Pt's asked if prescription can be sent to [facility] and also if SW can send a new GoodRx coupon for [facility] to them via email. VARGAS sent refill request to [facility] and emailed [facility] GoodRx coupon to pt and this date. OMID Hassan documented in this encounterVeterans Health Administration02-09-2023 Miscellaneous Notes* Telephone Encounter - Renita Van - 04/18/2022 2:18 PM EST Scheduled as directed. Reniat Van * Telephone Encounter - Amarilis Hernandez LPN - 04/18/2022 1:37 PM EST Patient and are aware of all information. PSS- please schedule patient for a lab appointment CMP(S) for 04/22/2022 @ 10:00. Patient is aware of date and time. Amarilis Hernandez LPN * Telephone Encounter - Vianney Garcia APRN.CNP - 04/18/2022 1:08 PM EST Please inform pt. that his US shows no concerning findings. Advise pt. to come in tomorrow or Friday for repeat CMP. Thank you. Vianney Garcia APRN.JALEN documented in this encounterVeterans Health Administration02-08-2023 History of Present illness Narrative* Nicole Brewster RDMS - 04/17/2022 9:15 AM EST Radiology Service Progress Note PATIENT NAME: Salo Nagy DATE OF SERVICE: April 17, 2022 TIME: 11:20 AM PATIENT IDENTITY VERIFICATION COMPLETED USING TWO (2) IDENTIFIERS: Name and Date of confirmedby patient verbally. FALL SCREENING: Has the patient had 2 falls in the last year or 1 fall with injury or currently using an Ambulatory Assistive Device (Walker, Cane, Wheelchair, Crutches, etc.)? No PATIENT GENDER DATA: Male PATIENT RELEVANT IMPLANT DATA REVIEWED: Not Applicable RADIOLOGY DEPARTMENT: Ultrasound PERIPHERAL IV DATA: Not applicable SIGNED BY: Nicole Brewster RDMS T April 17, 2022 11:20 AM documented in this encounterVeterans Health Administration02-07-2023 History of Present illness Narrative* Vianney Garcia SHUTTLE ROUTE VEHICLE OPERATOR.PET TRAINER - 04/16/2022 9:02 AM EST Chief Complaint Patient presents with: Established Patient HPI: Salo Nagy is a 72 year old male who presents here today for follow up prostate cancer. Per Dr. Alvarez's previous note: H/o tobacco abuse who presented in December 2018 with difficulty with urination. He has noted decreased urine output was urinary urgency for over a year. He was seen in the emergency room at [facility] on 01/03/2018. He did not have any change in medication or taking a decongestant at the time. His urinalysis showed rare bacteria. He was sent home on a Batista catheter. Followed by Dr. Vidal on 01/09/2019shows severe urethral stricture. Cystoscopy and direct vision internal urethrotomy and placement ofcatheter. There were no abnormality within the bladder and the prostate was normal. No additional labs or biopsy was performed. Patient continue have urinary retention with frequent self-catheterization. About 4 months ago he complained of having increased lower back and hip pain. He saw his chiropractor 2 weeks ago, and x-ray of the lumbar spine showed degenerative arthritis with suggestion of metastatic disease. He was referred back to PCP and was seen at the [facility]. He was given pain medication and bone scan on 07/02/2018 showed widespread metastatic disease involving the axial and proximal appendicular skeleton. His PSA was over 2000. Patient is here today to discuss last and bone scan findings. Patient has no family history of prostate cancer. Mother has breast cancer. He smoked one pack of cigarettes per day for over 40 years. He denied hematuria, no weight loss, no bowel or urinary incontinent, no focal neurological symptoms. Current treatment: Lupron / Zytiga & prednisone and Zometa every 3 months I was sick last week with maybe food poisoning. My stomach hurt and I vomited for two days. Symptoms improved now. Pt. here with family member. Appetite:I want to eat now. Energy level:Same. Old man good. Denies fevers. Resp:denies cough or sob Cardiac:denies chest pain/palpitations GI:denies abd pain now, denies n/v, moving bowels regularly :denies dysuria/hematuria Extrem:denies pain Neuro:denies symptoms of neuropathy Skin:denies rashes Heme:denies bleeding The ROS is otherwise negative. Past medical history, appointments, medications, allergies reviewed. No changes. EXAM: BP 141/82 Pulse 62 Temp 36.3 C (97.3 F) (Temporal) Wt 95 kg (209 lb 8 oz) BMI 29.99 kg/m APPEARANCE Well appearing, alert, in no acute distress, well-hydrated, well nourished. HEART RRR with normal S1 and S2, no murmurs LUNG clear to auscultation LYMPH NODES No cervical lymphadenopathy, No supraclavicular lymphadenopathy, and No axillary lymphadenopathy. ABDOMEN bowel sounds normoactive, soft, non-tender, nt RUQ EXTREMITIES No edema NEURO Awake, alert and oriented x 3, Normal gait, and No involuntary motions. SKIN Skin color, texture, turgor normal, no suspicious rashes or lesions LABS: Component Latest Ref Rng & Units 10/29/2021 01/21/2022 04/15/2022 WBC 3.70 - 11.00 k/uL 10.70 11.39 (H) 10.61 RBC 4.20 - 6.00 m/uL 4.46 4.69 4.57 Hemoglobin 13.0 - 17.0 g/dL 13.1 13.7 13.2 Hematocrit 39.0 - 51.0 % 39.4 41.2 40.0 MCV 80.0 - 100.0 fL 88.3 87.8 87.5 MCH 26.0 - 34.0 pg 29.4 29.2 28.9 MCHC 30.5 - 36.0 g/dL 33.2 33.3 33.0 RDW-CV 11.5 - 15.0 % 14.0 13.5 14.6 Platelet Count 150 - 400 k/uL 284 313 296 MPV 9.0 - 12.7 fL 10.8 10.4 10.3 Neut% % 74.5 63.1 67.1 Abs Neut (ANC) 1.45 - 7.50 k/uL 7.97 (H) 7.18 7.12 Lymph% % 16.9 25.1 20.7 Abs Lymph 1.00 - 4.00 k/uL 1.81 2.86 2.20 Vinton% % 5.0 7.0 6.6 Abs Vinton <0.87 k/uL 0.54 0.80 0.70 Eosin% % 2.6 4.0 4.6 Abs Eosin <0.46 k/uL 0.28 0.46 (H) 0.49 (H) Baso% % 0.4 0.4 0.5 Abs Baso <0.11 k/uL 0.04 0.04 0.05 Immature Gran % % 0.6 0.4 0.5 IMMATURE GRANS (ABS) <0.10 k/uL 0.06 0.05 0.05 NRBC /100 WBC 0.0 0.0 0.0 Absolute nRBC <0.01 k/uL <0.01 <0.01 <0.01 DTYPE Auto Auto Auto Component Latest Ref Rng & Units 10/29/2021 01/21/2022 04/15/2022 Protein, Total 6.3 - 8.0 g/dL 7.3 7.3 7.4 Albumin 3.9 - 4.9 g/dL 4.4 4.2 4.1 Calcium 8.5 - 10.2 mg/dL 9.4 9.8 9.3 Bilirubin, Total 0.2 - 1.3 mg/dL 0.3 0.3 0.5 Alkaline Phosphatase 38 - 113 U/L 86 96 272 (H) AST 14 - 40 U/L 16 14 163 (H) ALT 10 - 54 U/L 12 10 261 (H) Glucose 74 - 99 mg/dL 124 (H) 126 (H) 164 (H) BUN 9 - 24 mg/dL 17 18 18 Creatinine 0.73 - 1.22 mg/dL 1.27 (H) 1.26 (H) 1.26 (H) Sodium 136 - 144 mmol/L 136 137 134 (L) Potassium 3.7 - 5.1 mmol/L 3.9 4.5 3.9 Chloride 97 - 105 mmol/L 100 98 96 (L) CO2 22 - 30 mmol/L 22 30 28 Anion Gap 9 - 18 mmol/L 14 9 10 eGFR >=60 mL/min/1.73m 61 61 61 Component Latest Ref Rng & Units 10/29/2021 01/21/2022 04/15/2022 PSA <2.60 ng/mL 0.15 0.14 0.16 Repeat CMP: Pending ASSESSMENT/PLAN: 1. Malignant neoplasm of prostate (HCC) - ICD9: 185, ICD10: C61 (primary diagnosis) Metastatic prostate cancer (M1) extensive osseous metastasis 2. Bone metastases (HCC) - ICD9: 198.5, ICD10: C79.51 3. Right upper quadrant abdominal pain - ICD9: 789.01, ICD10: R10.11 4. Elevated liver enzymes - ICD9: 790.5, ICD10: R74.8 - Overall has been tolerating lupron/zometa/zytiga/prednisone well. - Reviewed CBC/CMP/PSA from yesterdays labs. - Today's CMP pending. - Monitor PSA. - Proceed zometa/lupron today as scheduled. - Continue prednisone. - Continue zytiga for now pending today's repeat LFT's. - US gallbladder and liver soon. - Follow up pending above. - Pt. aware to call office with any questions/concerns. The patient indicates understanding of these issues and agrees with the plan. Discussed case with Dr. Alvarez who agrees with treatment plan. All documentation from previous visit of 01/22/22-Dr. Bee was copied and pasted, documentation has been reviewed and edited as necessary for today's visit. Vianney Garcia APRN.CNP documented in this encounterVeterans Health Administration02-06-2023 Miscellaneous Notes* Telephone Encounter - Vianney Garcia APRN.CNP - 04/15/2022 12:36 PM EST Done. Vianney Garcia APRN.CNP * Telephone Encounter - Tiff No LPN - 04/15/2022 12:24 PM EST Please sign order for CMP tomorrow. Placed on schedule and pt. Notified to get lab redrawn . Tiff No LPN * Telephone Encounter - Vianney Garcia APRN.CNP - 04/15/2022 12:12 PM EST Please add repeat CMP for tomorrow prior to OV d/t elevated LFT's/alk phos today. Thank you. Vianney Garcia APRN.PET TRAINER documented in this encounterVeterans Health Administration12-29-2022 Miscellaneous Notes* Telephone Encounter - Prabha Cary RN - 03/07/2022 1:58 PM EST Patient and informed of Dr. Bee's response, stated understanding. CT report and phone note sent to PCP. Prabha Cary RN * Telephone Encounter - Rogelio Bee MD - 03/07/2022 1:[address] scans showed changes could be consistent with COVID infection or pneumonia. His bone metastases and subcentimeter lung nodules are stable. Metastatic prostate cancer still in remission Follow-up with PCP for COVID infection. Rogelio Bee MD documented in this encounterVeterans Health Administration12-27-2022 Miscellaneous Notes* Telephone Encounter - Rogelio Bee MD - 03/05/2022 10:56 AM EST Patient's request for medication is as follows Requested Prescriptions Signed Prescriptions Disp Refills abiraterone (ZYTIGA) 250 mg tablet 120 tablet 2 Sig: Take 4 tablets (1,000mg) by mouth once daily. Authorizing Provider: ROGELIO BEE Order entered - please phone pharmacy and notify patient. Rogelio Bee MD * Telephone Encounter - Tiff No LPN - 03/05/2022 10:43 AM EST Patient has been identified by name and date of : Yes Requested Prescriptions Pending Prescriptions Disp Refills abiraterone (ZYTIGA) 250 mg tablet 120 tablet 2 Sig: Take 4 tablets (1,000mg) by mouth once daily. RX INSTRUCTIONS: Patient aware RX will be sent to pharmacy. No need to notify patient. Tiff No LPN documented in this encounterVeterans Health Administration12-16-2022 Miscellaneous Notes* Telephone Encounter - Meagan Caro RN - 02/22/2022 3:40 PM EST Patient scheduled for CT chest 02/26/22 Julia Caro RN * Telephone Encounter - Meagan Caro RN - 02/22/2022 10:49 AM EST Spoke with Jennifer and she will discuss with Dr. Bolivar and call patient with Dr. Bee's response and instructions. She will have patient call in to schedule CT Chest. She is aware that we will review and call patient with results of CT. And, yes patient tested positive for COVID Julia Caro RN * Telephone Encounter - Meagan Caro RN - 02/22/2022 10:43 AM EST Call to john Rodriguez with the below message from Dr. Bee and to call with any further questions.Contact number provided. Julia Caro RN * Telephone Encounter - Rogelio Bee MD - 02/22/2022 10:32 AM EST They are not new findings. He had diffuse bone and lung metastases in the past However, he should get a CT chest without contrast next week for follow-up. Was he tested for COVID also? Rogelio Bee MD * Telephone Encounter - Meagan Caro RN - 02/22/2022 9:50 AM EST Spoke with Jennifer Sin ([phone]). States Dr. Bolivar has been working up patient and spouse for COVID. Did labs and CXR at [facility]. Patient is complaining of right rib pain and shortness of breath. Dr. Bolivar concerned regarding CXR findings and would like Dr. Bee to review and advise. He is wondering if Dr. Bee would like to see patient or work up by PCP? CXR faxed to our office and on Dr. Bee's desk for review. Julia Caro RN documented in this encounterVeterans Health Administration11-29-2022 Miscellaneous Notes* Telephone Encounter - Gita Ortiz LPN - 02/05/2022 5:11 PM EST Pt notified and voices understanding. Gita Ortiz LPN * Telephone Encounter - Rogelio Bee MD - 02/05/2022 5:00 PM EST He should hold Zytiga when he is taking Paxlovid. Rogelio Bee MD * Telephone Encounter - Alaina Baez Pss - 02/05/2022 4:10 PM EST Spouse called stating patient has Covid and had been prescribed Paxlovid. She is calling to be surethat he is able to take this medication. Please advise. documented in this encounterVeterans Health Administration11-15-2022 History of Present illness Narrative* Jessica Pedro RN - 01/22/2022 12:25 PM EST . documented in this encounterVeterans Health Administration11-15-2022 History of Present illness Narrative* Rogelio Bee MD - 01/22/2022 12:09 PM EST PATIENT NAME: Salo Nagy. CLINIC NO: [id number]. ATTENDING PHYSICIAN: Rogelio Bee MD. DATE OF SERVICE: 01/22/2022 DIAGNOSIS: Metastatic prostate cancer (M1) extensive osseous metastasis -History of pulmonary embolism after COVID infection (resolved) HPI: This 71-year-old gentleman with history of tobacco abuse who presented in December 2018 with difficulty with urination. He has noted decreased urine output was urinary urgency for over a year. Hewas seen in the emergency room at [facility] on 01/03/2018. He did not have any change in medication or taking a decongestant at the time. His urinalysis showed rare bacteria. He was sent home on a Batista cat heter. Followed by Dr. Vidal on 01/09/2019 shows severe urethral stricture. Cystoscopy and direct vision internal urethrotomy and placement of catheter. There were no abnormality within the bladder and the prostate was normal. No additional labs or biopsy was performed. Patient continue have urinary retention with frequent self-catheterization. About 4 months ago he complained of having increased lower back and hip pain. He saw his chiropractor 2 weeks ago, and x-ray of the lumbar spine showed degenerative arthritis with suggestion of metastatic disease. He was referred back to PCP and was seen at the [facility]. He was given pain medication and bone scan on 07/02/2018 showed widespread metastatic disease involving the axial and proximal appendicular skeleton. His PSA was over 2000. Patient is here today to discuss last and bone scan findings. Patient has no family history of prostate cancer. Mother has breast cancer. He smoked one pack of cigarettes per day for over 40 years. He denied hematuria, no weight loss, no bowel or urinary incontinent, no focal neurological symptoms. Current treatment: Lupron / Zytiga & prednisone and Zometa every 3 months Interim history: He is doing well. He has no chest pain,shortness of breath or hemoptysis. He denies bone pain or difficulty with urination or hematuria. No jaw pain on Zometa. (Only dentures) His weight and appetite is normal. No weight loss or increased fatigue on treatment. Occasional hot flashes and mild gynocomastia All medications & allergies updated and reviewed by me. REVIEW OF SYSTEMS: CONSTITUTIONAL: No fevers, chills, nightsweats, unintended weight loss HEENT: Denies frequent or severe heaches, nasal congestion/sinus symptoms, problematic allergy problems. EYES: No diplopia or blurry vision. CARDIOVASCULAR: No chest pain, dyspnea, palpitations, orthopnea, PND, ankle edema. PULM: No dyspnea, unexplained cough. GI: No dysphagia/odynophagia, problematic reflux, constipation, diarrhea, changes in stool habits, hematochezia, melena. : No new urinary complaints, including dysuria, gross hematuria or pyuria. NEURO: No new balance problems, peripheral weakness/paresthesias or numbness of concern. MUSC-SKEL: No new joint pain, swelling, or erythema. PSY: No concerns regarding depression, anxiety or panic. INTEGUMENTARY: No new skin changes (rash, new or changing mole, new growth) PHYSICAL EXAMINATION: 71-year-old thin male in no acute distress Performance status: 90% BP 152/80 Pulse 56 Temp (Src) 96.9 (Temporal) Wt 204 lb (92.5kg) Oxygen saturation: HEENT: Head is normocephalic, atraumatic. Sclerae white, conjunctivae pink. PEERL. EOMs are intact.Oropharynx is benign. LYMPHATICS: There is no palpable adenopathy in the neck, supraclavicular region, axillae, or groin. LUNGS: Lungs are clear to percussion and auscultation. No wheezing, rubs or rales HEART: Heart is normal with grade 1/6 systolic murmurs, no gallops, or rubs. ABDOMEN: Soft and nontender without organomegaly. No masses can be palpated. EXTREMITIES: Are without edema. NEUROLOGIC: Exam is physiologic LABS: Component Latest Ref Rng & Units 01/21/2022 WBC 3.70 - 11.00 k/uL 11.39 (H) RBC 4.20 - 6.00 m/uL 4.69 Hemoglobin 13.0 - 17.0 g/dL 13.7 Hematocrit 39.0 - 51.0 % 41.2 MCV 80.0 - 100.0 fL 87.8 MCH 26.0 - 34.0 pg 29.2 MCHC 30.5 - 36.0 g/dL 33.3 RDW-CV 11.5 - 15.0 % 13.5 Platelet Count 150 - 400 k/uL 313 MPV 9.0 - 12.7 fL 10.4 Neut% % 63.1 Abs Neut (ANC) 1.45 - 7.50 k/uL 7.18 Lymph% % 25.1 Abs Lymph 1.00 - 4.00 k/uL 2.86 Vinton% % 7.0 Abs Vinton <0.87 k/uL 0.80 Eosin% % 4.0 Abs Eosin <0.46 k/uL 0.46 (H) Baso% % 0.4 Abs Baso <0.11 k/uL 0.04 Immature Gran % % 0.4 IMMATURE GRANS (ABS) <0.10 k/uL 0.05 NRBC /100 WBC 0.0 Absolute nRBC <0.01 k/uL <0.01 DTYPE Auto Component Latest Ref Rng & Units 01/21/2022 Protein, Total 6.3 - 8.0 g/dL 7.3 Albumin 3.9 - 4.9 g/dL 4.2 Calcium 8.5 - 10.2 mg/dL 9.8 Bilirubin, Total 0.2 - 1.3 mg/dL 0.3 Alkaline Phosphatase 38 - 113 U/L 96 AST 14 - 40 U/L 14 ALT 10 - 54 U/L 10 Glucose 74 - 99 mg/dL 126 (H) BUN 9 - 24 mg/dL 18 Creatinine 0.73 - 1.22 mg/dL 1.26 (H) Sodium 136 - 144 mmol/L 137 Potassium 3.7 - 5.1 mmol/L 4.5 Chloride 97 - 105 mmol/L 98 CO2 22 - 30 mmol/L 30 Anion Gap 9 - 18 mmol/L 9 eGFR >=60 mL/min/1.73m 61 PSA <2.60 ng/mL 0.14 ASSESSMENT/PLAN: 71-year-old gentleman with history of tobacco use with stage IV, extensive osseousmetastasis from endocrine sensitive prostate cancer. 1) metastatic prostate cancer -Clinically in complete remission, no pain and no difficulty with urination. Both PSA and alkaline phosphatase are normal. -Tolerating treatment (Lupron/Zytiga/prednisone) and Zometa Plan: -Continue Lupron and Zometa every 3 months -Continue androgen ablation treatment with Zytiga and prednisone -Possible change to Casodex 50 mg once daily if insurance/Patient assisitant doesn't cover next year -Repeat CBC, CMP, PSA & and office visit in 3 months 2) provoked pulmonary embolism secondary to COVID infection with elevated factor VIII levels. -Clinically no evidence of recurrent DVT or pulmonary embolism Plan: -Continue aspirin 81 mg once daily. Portions of this documentation were copied and pasted from previous office visit notes in order to provide a cohesive continuity of the history. The note has been reviewed and edited and updated as necessary. Rogelio Bee MD Cc: Silverio Gold CNP documented in this encounterV[facility] Administration11-15-2022 Miscellaneous Notes* Telephone Encounter - Jessica Pedro RN - 01/22/2022 9:[address] Bee - please sign Lupron/Zometa orders for today, thank you! documented in this encounterVeter[facility] Administration09-19-2022 Miscellaneous Notes* Telephone Encounter - Amarilis Hernandez LPN - 11/26/2021 11:24 AM EDT Patient has been identified by name and date of : Yes Requested Prescriptions Pending Prescriptions Disp Refills abiraterone (ZYTIGA) 250 mg tablet 120 tablet 2 Sig: Take 4 tablets (1,000mg) by mouth once daily. RX INSTRUCTIONS: Patient aware RX will be sent to pharmacy. No need to notify patient. Amarilis Hernandez LPN documented in this encounterVeterans Health Administration08-23-2022 History of Present illness Narrative* Rogelio Bee MD - 10/30/2021 9:31 AM EDT PATIENT NAME: Salo Nagy. CLINIC NO: [id number]. ATTENDING PHYSICIAN: Rogelio Bee MD. DATE OF SERVICE: 10/30/2021 DIAGNOSIS: Metastatic prostate cancer (M1) extensive osseous metastasis -History of pulmonary embolism after COVID infection HPI: This 71-year-old gentleman with history of tobacco abuse who presented in December 2018 with difficulty with urination. He has noted decreased urine output was urinary urgency for over a year. Hewas seen in the emergency room at [facility] on [facility]2018. He did not have any change in medication or taking a decongestant at the time. His urinalysis showed rare bacteria. He was sent home on a Batista cat heter. Followed by Dr. Vidal on 01/09/2019 shows severe urethral stricture. Cystoscopy and direct vision internal urethrotomy and placement of catheter. There were no abnormality within the bladder and the prostate was normal. No additional labs or biopsy was performed. Patient continue have urinary retention with frequent self-catheterization. About 4 months ago he complained of having increased lower back and hip pain. He saw his chiropractor 2 weeks ago, and x-ray of the lumbar spine showed degenerative arthritis with suggestion of metastatic disease. He was referred back to PCP and was seen at the [facility]. He was given pain medication and bone scan on 07/02/2018 showed widespread metastatic disease involving the axial and proximal appendicular skeleton. His PSA was over 2000. Patient is here today to discuss last and bone scan findings. Patient has no family history of prostate cancer. Mother has breast cancer. He smoked one pack of cigarettes per day for over 40 years. He denied hematuria, no weight loss, no bowel or urinary incontinent, no focal neurological symptoms. Current treatment: Lupron / Zytiga & prednisone and Zometa every 3 months Interim history: He is doing well. He stopped apixaban since he recovered from COVID 19 and PE thissummer. He has no chest pain, cough, shortness of breath or hemoptysis. He denies bone pain or difficulty with urination or hematuria. No jaw pain on Zometa. (Only dentures) His weight and appetite is normal. No weight loss or increased fatigue on treatment. Occasional hot flashes and mild gynocomastia All medications & allergies updated and reviewed by me. REVIEW OF SYSTEMS: CONSTITUTIONAL: No fevers, chills, nightsweats, unintended weight loss HEENT: Denies frequent or severe heaches, nasal congestion/sinus symptoms, problematic allergy problems. EYES: No diplopia or blurry vision. CARDIOVASCULAR: No chest pain, dyspnea, palpitations, orthopnea, PND, ankle edema. PULM: No dyspnea, unexplained cough. GI: No dysphagia/odynophagia, problematic reflux, constipation, diarrhea, changes in stool habits, hematochezia, melena. : No new urinary complaints, including dysuria, gross hematuria or pyuria. NEURO: No new balance problems, peripheral weakness/paresthesias or numbness of concern. MUSC-SKEL: No new joint pain, swelling, or erythema. PSY: No concerns regarding depression, anxiety or panic. INTEGUMENTARY: No new skin changes (rash, new or changing mole, new growth) PHYSICAL EXAMINATION: 71-year-old thin male in no acute distress Performance status: 90% BP 150/80 Pulse 54 Temp (Src) 97.1 (Temporal) Wt 202 lb 8 oz (91.9kg) Oxygen saturation: 95% HEENT: Head is normocephalic, atraumatic. Sclerae white, conjunctivae pink. PEERL. EOMs are intact.Oropharynx is benign. LYMPHATICS: There is no palpable adenopathy in the neck, supraclavicular region, axillae, or groin. LUNGS: Lungs are clear to percussion and auscultation. No wheezing, rubs or rales HEART: Heart is normal with grade 1/6 systolic murmurs, no gallops, or rubs. ABDOMEN: Soft and nontender without organomegaly. No masses can be palpated. EXTREMITIES: Are without edema. NEUROLOGIC: Exam is physiologic LABS: Component Latest Ref Rng & Units 10/29/2021 WBC 3.70 - 11.00 k/uL 10.70 RBC 4.20 - 6.00 m/uL 4.46 Hemoglobin 13.0 - 17.0 g/dL 13.1 Hematocrit 39.0 - 51.0 % 39.4 MCV 80.0 - 100.0 fL 88.3 MCH 26.0 - 34.0 pg 29.4 MCHC 30.5 - 36.0 g/dL 33.2 RDW-CV 11.5 - 15.0 % 14.0 Platelet Count 150 - 400 k/uL 284 MPV 9.0 - 12.7 fL 10.8 Neut% % 74.5 Abs Neut (ANC) 1.45 - 7.50 k/uL 7.97 (H) Lymph% % 16.9 Abs Lymph 1.00 - 4.00 k/uL 1.81 Vinton% % 5.0 Abs Vinton <0.87 k/uL 0.54 Eosin% % 2.6 Abs Eosin <0.46 k/uL 0.28 Baso% % 0.4 Abs Baso <0.11 k/uL 0.04 Immature Gran % % 0.6 IMMATURE GRANS (ABS) <0.10 k/uL 0.06 NRBC /100 WBC 0.0 Absolute nRBC <0.01 k/uL <0.01 DTYPE Auto Component Latest Ref Rng & Units 10/29/2021 Protein, Total 6.3 - 8.0 g/dL 7.3 Albumin 3.9 - 4.9 g/dL 4.4 Calcium 8.5 - 10.2 mg/dL 9.4 Bilirubin, Total 0.2 - 1.3 mg/dL 0.3 Alkaline Phosphatase 38 - 113 U/L 86 AST 14 - 40 U/L 16 ALT 10 - 54 U/L 12 Glucose 74 - 99 mg/dL 124 (H) BUN 9 - 24 mg/dL 17 Creatinine 0.73 - 1.22 mg/dL 1.27 (H) Sodium 136 - 144 mmol/L 136 Potassium 3.7 - 5.1 mmol/L 3.9 Chloride 97 - 105 mmol/L 100 CO2 22 - 30 mmol/L 22 Anion Gap 9 - 18 mmol/L 14 eGFR >=60 mL/min/1.73m 61 PSA <2.60 ng/mL 0.15 Component Latest Ref Rng & Units 08/03/2021 10/29/2021 d Dimer <500 ng/mL FEU 1,630 (H) 1,060 (H) ASSESSMENT/PLAN: 71-year-old gentleman with history of tobacco use with stage IV, extensive osseousmetastasis from endocrine sensitive prostate cancer. 1) metastatic prostate cancer -Clinically in complete remission, no pain and no difficulty with urination. Both PSA and alkaline phosphatase are normal. -Tolerating treatment (Lupron/Zytiga/prednisone) and Zometa Plan: -Continue Lupron and Zometa every 3 months -Continue androgen ablation treatment with Zytiga and prednisone -Repeat CBC, CMP, PSA & and office visit in 3 months 2) provoked pulmonary embolism secondary to COVID infection with elevated factor VIII levels. -Clinically no evidence of recurrent DVT or pulmonary embolism & D-dimer is decreasing -Continue aspirin 81 mg once daily. -He will need DVT prophylaxis with any hospitalization or surgical procedures in the future. Portions of this documentation were copied and pasted from previous office visit notes in order to provide a cohesive continuity of the history. The note has been reviewed and edited and updated as necessary. Rogelio Bee MD Cc: Silverio Gold CNP documented in this encounterVeterans Health Administration07-25-2022 Miscellaneous Notes* Telephone Encounter - Rogelio Bee MD - 10/01/2021 8:18 AM EDT Patient's request for medication is as follows Signed Prescriptions Disp Refills predniSONE (DELTASONE) 5 mg tablet 90 tablet 2 Sig: TAKE 1 TABLET ONCE DAILY CHELA: No Authorizing Provider: ROGELIO BEE Order entered - please phone pharmacy and notify patient. Rogelio Bee MD * Telephone Encounter - Tiff No LPN - 10/01/2021 7:48 AM EDT Patient has been identified by name and date of : Yes Pending Prescriptions Disp Refills PREDNISONE 5 MG TABLET 90 tablet 2 Sig: TAKE 1 TABLET ONCE DAILY CHELA: Yes RX INSTRUCTIONS: Patient aware RX will be sent to pharmacy. No need to notify patient. Tiff No LPN documented in this encounterVeterans Health Administration05-31-2022 History of Present illness Narrative* Rogelio Bee MD - 08/07/2021 10:05 AM EDT PATIENT NAME: Salo Nagy. CLINIC NO: [id number]. ATTENDING PHYSICIAN: Rogelio Bee MD. DATE OF SERVICE: 08/07/2021 DIAGNOSIS: Metastatic prostate cancer (M1) extensive osseous metastasis HPI: This 71-year-old gentleman with history of tobacco abuse who presented in December 2018 with difficulty with urination. He has noted decreased urine output was urinary urgency for over a year. Hewas seen in the emergency room at [facility] on 01[facility]03[facility]2018. He did not have any change in medication or taking a decongestant at the time. His urinalysis showed rare bacteria. He was sent home on a Batista cat heter. Followed by Dr. Vidal on 01/09/2019 shows severe urethral stricture. Cystoscopy and direct vision internal urethrotomy and placement of catheter. There were no abnormality within the bladder and the prostate was normal. No additional labs or biopsy was performed. Patient continue have urinary retention with frequent self-catheterization. About 4 months ago he complained of having increased lower back and hip pain. He saw his chiropractor 2 weeks ago, and x-ray of the lumbar spine showed degenerative arthritis with suggestion of metastatic disease. He was referred back to PCP and was seen at the [facility]. He was given pain medication and bone scan on 07/02/2018 showed widespread metastatic disease involving the axial and proximal appendicular skeleton. His PSA was over 2000. Patient is here today to discuss last and bone scan findings. Patient has no family history of prostate cancer. Mother has breast cancer. He smoked one pack of cigarettes per day for over 40 years. He denied hematuria, no weight loss, no bowel or urinary incontinent, no focal neurological symptoms. Current treatment: Lupron / Zytiga & prednisone and Zometa every 3 months Interim history: He is doing well. He stopped apixaban since he recovered from COVID 19 and PE. He has no chest pain, cough, shortness of breath or hemoptysis. He denies bone pain or difficulty with urination or hematuria. No jaw pain on Zometa. His weight and appetite is normal. He is having no COVID with his androgen ablation therapy except for occasional hot flashes. No weight loss or increased fatigue. All medications & allergies updated and reviewed by me. REVIEW OF SYSTEMS: CONSTITUTIONAL: No fevers, chills, nightsweats, unintended weight loss HEENT: Denies frequent or severe heaches, nasal congestion/sinus symptoms, problematic allergy problems. EYES: No diplopia or blurry vision. CARDIOVASCULAR: No chest pain, dyspnea, palpitations, orthopnea, PND, ankle edema. PULM: No dyspnea, unexplained cough. GI: No dysphagia/odynophagia, problematic reflux, constipation, diarrhea, changes in stool habits, hematochezia, melena. : No new urinary complaints, including dysuria, gross hematuria or pyuria. NEURO: No new balance problems, peripheral weakness/paresthesias or numbness of concern. MUSC-SKEL: No new joint pain, swelling, or erythema. PSY: No concerns regarding depression, anxiety or panic. INTEGUMENTARY: No new skin changes (rash, new or changing mole, new growth) PHYSICAL EXAMINATION: 71-year-old thin male in no acute distress Performance status: 90% BP 132/83 Pulse 63 Temp 97.5 Wt 207 lb 8 oz (94.1kg) SpO2 94% HEENT: Head is normocephalic, atraumatic. Sclerae white, conjunctivae pink. PEERL. EOMs are intact.Oropharynx is benign. LYMPHATICS: There is no palpable adenopathy in the neck, supraclavicular region, axillae, or groin. LUNGS: Lungs are clear to percussion and auscultation. No wheezing, rubs or rales HEART: Heart is normal with grade 1/6 systolic murmurs, no gallops, or rubs. ABDOMEN: Soft and nontender without organomegaly. No masses can be palpated. EXTREMITIES: Are without edema. NEUROLOGIC: Exam is physiologic LABS: Component Latest Ref Rng & Units 08/03/2021 WBC 3.70 - 11.00 k/uL 10.29 RBC 4.20 - 6.00 m/uL 4.40 Hemoglobin 13.0 - 17.0 g/dL 12.8 (L) Hematocrit 39.0 - 51.0 % 38.1 (L) MCV 80.0 - 100.0 fL 86.6 MCH 26.0 - 34.0 pg 29.1 MCHC 30.5 - 36.0 g/dL 33.6 RDW-CV 11.5 - 15.0 % 13.9 Platelet Count 150 - 400 k/uL 288 MPV 9.0 - 12.7 fL 10.7 Neut% % 72.3 Abs Neut (ANC) 1.45 - 7.50 k/uL 7.44 Lymph% % 18.6 Abs Lymph 1.00 - 4.00 k/uL 1.91 Vinton% % 6.0 Abs Vinton <0.87 k/uL 0.62 Eosin% % 2.5 Abs Eosin <0.46 k/uL 0.26 Baso% % 0.3 Abs Baso <0.11 k/uL 0.03 Immature Gran % % 0.3 IMMATURE GRANS (ABS) <0.10 k/uL 0.03 NRBC /100 WBC 0.0 Absolute nRBC <0.01 k/uL <0.01 DTYPE Auto Component Latest Ref Rng & Units 08/03/2021 Protein, Total 6.3 - 8.0 g/dL 7.4 Albumin 3.9 - 4.9 g/dL 4.3 Calcium 8.5 - 10.2 mg/dL 9.3 Bilirubin, Total 0.2 - 1.3 mg/dL 0.4 Alkaline Phosphatase 38 - 113 U/L 88 AST 14 - 40 U/L 18 ALT 10 - 54 U/L 13 Glucose 74 - 99 mg/dL 131 (H) BUN 9 - 24 mg/dL 14 Creatinine 0.73 - 1.22 mg/dL 1.15 Sodium 136 - 144 mmol/L 134 (L) Potassium 3.7 - 5.1 mmol/L 3.6 (L) Chloride 97 - 105 mmol/L 97 CO2 22 - 30 mmol/L 21 (L) Anion Gap 9 - 18 mmol/L 16 eGFR >=60 mL/min/1.73m 68 PSA <2.60 ng/mL 0.15 ASSESSMENT/PLAN: 70-year-old gentleman with history of tobacco use with stage IV, extensive osseousmetastasis from endocrine sensitive prostate cancer. 1) metastatic prostate cancer -Clinically in complete remission, no pain and no difficulty with urination. Both PSA and alkaline phosphatase are normal. -Tolerating treatment (Lupron/Zytiga/prednisone) and Zometa Plan: -Continue Zometa every 3 months -Continue androgen ablation treatment with Lupron every 3 months with Zytiga and prednisone -Repeat CBC, CMP, PSA & and office visit in 3 months Portions of this documentation were copied and pasted from previous office visit notes in order to provide a cohesive continuity of the history. The note has been reviewed and edited and updated as necessary. Rogelio Bee MD Cc: Silverio Gold CNP documented in this encounterVeterans Health Administration08-22-2020 History of Past illness Narrative* Problem Noted Date Resolved Date Acute urinary retention 10/30/2019 10/30/19 Overview: Hx: Retention following batista removal, voiding freely after straight cath Assessment: Now voiding freely Plan: Dc home documented as of this encounter (statuses as of 08/07/2021) [facility] of Past [facility] Narrative* Problem Noted Date Resolved Date Acute urinary retention 10/30/2019 10/30/19 Overview: Hx: Retention following batista removal, voiding freely after straight cath Assessment: Now voiding freely Plan: Dc home documented as of this encounter (statuses as of 08/08/2021) [address]22-2020 History of Past illness Narrative* Problem Noted Date Resolved Date Acute urinary retention 10/30/2019 10/30/19 Overview: Hx: Retention following batista removal, voiding freely after straight cath Assessment: Now voiding freely Plan: Dc home documented as of this encounter (statuses as of 10/01/2021) [address]22-2020 History of Past illness Narrative* Problem Noted Date Resolved Date Acute urinary retention 10/30/2019 10/30/19 Overview: Hx: Retention following batista removal, voiding freely after straight cath Assessment: Now voiding freely Plan: Dc home documented as of this encounter (statuses as of 10/30/2021) [address]22-2020 History of Past illness Narrative* Problem Noted Date Resolved Date Acute urinary retention 10/30/2019 10/30/19 Overview: Hx: Retention following batista removal, voiding freely after straight cath Assessment: Now voiding freely Plan: Dc home documented as of this encounter (statuses as of 10/31/2021) [address]22-2020 History of Past illness Narrative* Problem Noted Date Resolved Date Acute urinary retention 10/30/2019 10/30/19 Overview: Hx: Retention following batista removal, voiding freely after straight cath Assessment: Now voiding freely Plan: Dc home documented as of this encounter (statuses as of 11/26/2021) [address]22-2020 History of Past illness Narrative* Problem Noted Date Resolved Date Acute urinary retention 10/30/2019 10/30/19 Overview: Hx: Retention following batista removal, voiding freely after straight cath Assessment: Now voiding freely Plan: Dc home documented as of this encounter (statuses as of 01/22/2022) [address]22-2020 History of Past illness Narrative* Problem Noted Date Resolved Date Acute urinary retention 10/30/2019 10/30/19 Overview: Hx: Retention following batista removal, voiding freely after straight cath Assessment: Now voiding freely Plan: Dc home documented as of this encounter (statuses as of 01/22/2022) [address]22-2020 History of Past illness Narrative* Problem Noted Date Resolved Date Acute urinary retention 10/30/2019 10/30/19 Overview: Hx: Retention following batista removal, voiding freely after straight cath Assessment: Now voiding freely Plan: Dc home documented as of this encounter (statuses as of 01/23/2022) [address]22-2020 History of Past illness Narrative* Problem Noted Date Resolved Date Acute urinary retention 10/30/2019 10/30/19 Overview: Hx: Retention following batista removal, voiding freely after straight cath Assessment: Now voiding freely Plan: Dc home documented as of this encounter (statuses as of 02/05/2022) [address]22-2020 History of Past illness Narrative* Problem Noted Date Resolved Date Acute urinary retention 10/30/2019 10/30/19 Overview: Hx: Retention following batista removal, voiding freely after straight cath Assessment: Now voiding freely Plan: Dc home documented as of this encounter (statuses as of 02/22/2022) [address]22-2020 History of Past illness Narrative* Problem Noted Date Resolved Date Acute urinary retention 10/30/2019 10/30/19 Overview: Hx: Retention following batista removal, voiding freely after straight cath Assessment: Now voiding freely Plan: Dc home documented as of this encounter (statuses as of 03/11/2022) [address]22-2020 History of Past illness Narrative* Problem Noted Date Resolved Date Acute urinary retention 10/30/2019 10/30/19 Overview: Hx: Retention following batista removal, voiding freely after straight cath Assessment: Now voiding freely Plan: Dc home documented as of this encounter (statuses as of 03/13/2022) [address]22-2020 History of Past illness Narrative* Problem Noted Date Resolved Date Acute urinary retention 10/30/2019 10/30/19 Overview: Hx: Retention following batista removal, voiding freely after straight cath Assessment: Now voiding freely Plan: Dc home documented as of this encounter (statuses as of 04/15/2022) [address]22-2020 History of Past illness Narrative* Problem Noted Date Resolved Date Acute urinary retention 10/30/2019 10/30/19 Overview: Hx: Retention following batista removal, voiding freely after straight cath Assessment: Now voiding freely Plan: Dc home documented as of this encounter (statuses as of 04/16/2022) [address]22-2020 History of Past illness Narrative* Problem Noted Date Resolved Date Acute urinary retention 10/30/2019 10/30/19 Overview: Hx: Retention following batista removal, voiding freely after straight cath Assessment: Now voiding freely Plan: Dc home documented as of this encounter (statuses as of 04/17/2022) [address]22-2020 History of Past illness Narrative* Problem Noted Date Resolved Date Acute urinary retention 10/30/2019 10/30/19 Overview: Hx: Retention following batista removal, voiding freely after straight cath Assessment: Now voiding freely Plan: Dc home documented as of this encounter (statuses as of 04/18/2022) [address]22-2020 History of Past illness Narrative* Problem Noted Date Resolved Date Acute urinary retention 10/30/2019 10/30/19 Overview: Hx: Retention following batista removal, voiding freely after straight cath Assessment: Now voiding freely Plan: Dc home documented as of this encounter (statuses as of 05/09/2022) [address]22-2020 History of Past illness Narrative* Problem Noted Date Resolved Date Acute urinary retention 10/30/2019 10/30/19 Overview: Hx: Retention following batista removal, voiding freely after straight cath Assessment: Now voiding freely Plan: Dc home documented as of this encounter (statuses as of 06/28/2022) [address]22-2020 History of Past illness Narrative* Problem Noted Date Resolved Date Acute urinary retention 10/30/2019 10/30/19 Overview: Hx: Retention following batista removal, voiding freely after straight cath Assessment: Now voiding freely Plan: Dc home documented as of this encounter (statuses as of 07/05/2022) [address]22-2020 History of Past illness Narrative* Problem Noted Date Resolved Date Acute urinary retention 10/30/2019 10/30/19 Overview: Hx: Retention following batista removal, voiding freely after straight cath Assessment: Now voiding freely Plan: Dc home documented as of this encounter (statuses as of 07/09/2022) [address]22-2020 History of Past illness Narrative* Problem Noted Date Resolved Date Acute urinary retention 10/30/2019 10/30/19 Overview: Hx: Retention following batista removal, voiding freely after straight cath Assessment: Now voiding freely Plan: Dc home documented as of this encounter (statuses as of 07/10/2022) [address]22-2020 History of Past illness Narrative* Problem Noted Date Diagnosed Date Resolved Date Acute urinary retention 10/30/201910/09 Overview: Hx: Retention following batista removal, voiding freely after straight cath Assessment: Now voiding freely Plan: Dc home documented as of this encounter (statuses as of 11/26/2022) [address]22-2020 History of Past illness Narrative* Problem Noted Date Diagnosed Date Resolved Date Acute urinary retention 10/30/201910/09 Overview: Hx: Retention following batista removal, voiding freely after straight cath Assessment: Now voiding freely Plan: Dc home documented as of this encounter (statuses as of 11/26/2022) [facility] Narrative* Problem Noted Date Diagnosed Date Resolved Date Acute urinary retention 10/30/201910/09 Overview: Hx: Retention following batista removal, voiding freely after straight cath Assessment: Now voiding freely Plan: Dc home documented as of this encounter (statuses as of 12/24/2022) [facility] of Past illness Narrative* Problem Noted Date Diagnosed Date Resolved Date Acute urinary retention 10/30/201910/09 Overview: Hx: Retention following batista removal, voiding freely after straight cath Assessment: Now voiding freely Plan: Dc home documented as of this encounter (statuses as of 12/24/2022) [place] [id number] History of Past illness Narrative* Problem Noted Date Diagnosed Date Resolved Date Acute urinary retention 10/30/201910/09 Overview: Hx: Retention following batista removal, voiding freely after straight cath Assessment: Now voiding freely Plan: Dc home documented as of this encounter (statuses as of 12/26/2022) [facility] of [facility] illness Narrative* Problem Noted Date Diagnosed Date Resolved Date Acute urinary retention 10/30/201910/09 Overview: Hx: Retention following batista removal, voiding freely after straight cath Assessment: Now voiding freely Plan: Dc home documented as of this encounter (statuses as of 12/30/2022) [address]22-2020 History of Past illness Narrative* Problem Noted Date Diagnosed Date Resolved Date Acute urinary retention 10/30/201910/09 Overview: Hx: Retention following batista removal, voiding freely after straight cath Assessment: Now voiding freely Plan: Dc home documented as of this encounter (statuses as of 01/08/2023) [address]22-2020 History of Past illness Narrative* Problem Noted Date Diagnosed Date Resolved Date Acute urinary retention 10/30/201910/09 Overview: Hx: Retention following batista removal, voiding freely after straight cath Assessment: Now voiding freely Plan: Dc home documented as of this encounter (statuses as of 01/11/2023) [facility] Narrative* Problem Noted Date Diagnosed Date Resolved Date Acute urinary retention 10/30/201910/09 Overview: Hx: Retention following batista removal, voiding freely after straight cath Assessment: Now voiding freely Plan: Dc home documented as of this encounter (statuses as of 01/12/2023) [address]22-2020 History of Past illness Narrative* Problem Noted Date Diagnosed Date Resolved Date Acute urinary retention 10/30/201910/09 Overview: Hx: Retention following batista removal, voiding freely after straight cath Assessment: Now voiding freely Plan: Dc home documented as of this encounter (statuses as of 01/29/2023) [facility] History of Past illness Narrative* Problem Noted Date Diagnosed Date Resolved Date Acute urinary retention 10/30/201910/09 Overview: Hx: Retention following batista removal, voiding freely after straight cath Assessment: Now voiding freely Plan: Dc home documented as of this encounter (statuses as of 02/04/2023) [place] [id number] History of Past illness Narrative* Problem Noted Date Diagnosed Date Resolved Date Acute urinary retention 10/30/201910/09 Overview: Hx: Retention following batista removal, voiding freely after straight cath Assessment: Now voiding freely Plan: Dc home documented as of this encounter (statuses as of 02/12/2023) [place] [id number] History of Past illness Narrative* Problem Noted Date Diagnosed Date Resolved Date Acute urinary retention 10/30/201910/09 Overview: Hx: Retention following batista removal, voiding freely after straight cath Assessment: Now voiding freely Plan: Dc home documented as of this encounter (statuses as of 02/19/2023) [facility] History of Past illness Narrative* Problem Noted Date Diagnosed Date Resolved Date Acute urinary retention 10/30/201910/09 Overview: Hx: Retention following batista removal, voiding freely after straight cath Assessment: Now voiding freely Plan: Dc home documented as of this encounter (statuses as of 06/10/2023) [facility] History of Past illness Narrative* Problem Noted Date Diagnosed Date Resolved Date Acute urinary retention 10/30/201910/09 Overview: Hx: Retention following batista removal, voiding freely after straight cath Assessment: Now voiding freely Plan: Dc home documented as of this encounter (statuses as of 06/10/2023) [facility] Appointment Date:01/19/2021 10:20:00 AM Scheduled Provider:SILVERIO BOLIVAR APRN, CNP Location:[facility] Appointment Type:PC OV Follow Up [facility] Evaluation + Plan note Future Appointments Appointment Date:07/19/2021 11:20:00 AM Scheduled Provider:SILVERIO BOLIVAR APRN, CNP Location:[facility] Appointment Type:PC OV [facility] Evaluation + Plan note Future Appointments Appointment Date:01/24/2022 10:20:00 AM Scheduled Provider:SILVERIO BOLIVAR APRN, CNP Location:[facility] Appointment Type:PC OV Follow Up Future Scheduled Tests Laboratory* Microalbumin Level Urine 01/19/22 [facility] Evaluation + Plan note Future Appointments Appointment Date:02/06/2023 09:00:00 AM Scheduled Provider: Location:[facility] Appointment Type:PC Nurse Lab Appointment Date:02/14/2023 09:40:00 AM Scheduled Provider:SILVERIO BOLIVAR APRN, CNP Location:[facility] Appointment Type:PC OV Follow Up Future Scheduled Tests Laboratory* Renin, Plasma 07/24/22 * Renin, Plasma 02/02/23 * Ferritin 07/24/22 * Iron Level 07/24/22 * Iron Level 02/02/23 * Prostate Specific Antigen 07/24/22 * A1C Hemoglobin 02/02/23 * Complete Blood Count 02/02/23 * Lipid Profile 07/24/22 * Lipid Profile 02/02/23 * Albumin/Creatinine Ratio, Random Urine 02/02/23 * Microalbumin Level Urine 07/24/22 * Microalbumin Level Urine 01/19/22 * PTH, Intact 02/02/23 * Reticulocytes - Panel 10/28/22 * Vitamin D Level 07/24/22 * Vitamin D Level 02/02/23 * Complete Metabolic Panel 07/24/22 * Complete Metabolic Panel 02/02/23 * TIBC 07/24/22 * TIBC 02/02/23 [facility] Evaluation + Plan note Future Appointments Appointment Date:02/14/2023 09:40:00 AM Scheduled Provider:SILVERIO BOLIVAR APRN, CNP Location:[facility] Appointment Type:PC OV Follow Up Diagnostic Tests Pending * Renin Activity, Plasma 02/06/23 [facility] Evaluation + Plan note Future Appointments Appointment Date:09/04/2023 08:00:00 AM Scheduled Provider:SILVERIO BOLIVAR APRN, CNP Location:[facility] Appointment Type:PC OV Follow Up Future Scheduled Tests Laboratory* Albumin/Creatinine Ratio, Random Urine 08/16/23 [facility] Evaluation + Plan note Future Appointments Appointment Date:01/13/2024 08:00:00 AM Scheduled Provider: Location:[facility] Appointment Type:US Abdomen/Aorta Appointment Date:01/29/2024 10:20:00 AM Scheduled Provider:SILVERIO BOLIVAR APRN, CNP Location:[facility] Appointment Type:PC OV Follow Up Appointment Date:02/19/2024 10:00:00 AM Scheduled Provider: Location:[facility] Appointment Type:PC Nurse Lab Appointment Date:02/24/2024 10:00:00 AM Scheduled Provider:SILVERIO BOLIVAR APRN, CNP Location:[facility] Appointment Type:PC OV Follow Up Future Scheduled Tests Laboratory* C-Reactive Protein 01/01/24 * Helicobacter Pylori Antibody 01/01/24 * Prostate Specific Antigen 03/05/24 * A1C Hemoglobin 03/05/24 * Complete Blood Count 03/05/24 * Lipid Profile 03/05/24 * Albumin/Creatinine Ratio, Random Urine 08/16/23 * Albumin/Creatinine Ratio, Random Urine 03/05/24 * PTH, Intact 03/05/24 * Sedimentation Rate Automated 01/01/24 * Vitamin D Level 03/05/24 * Complete Metabolic Panel 03/05/24 Radiology* US Abdomen and Aorta 01/13/24 [facility] Evaluation + Plan note Future Appointments Appointment Date:01/22/2024 09:40:00 AM Scheduled Provider:SILVERIO BOLIVAR APRN, CNP Location:[facility] Appointment Type:PC OV Follow Up Appointment Date:01/29/2024 10:20:00 AM Scheduled Provider:SILVERIO BOLIVAR APRN, CNP Location:[facility] Appointment Type:PC OV Follow Up Appointment Date:02/19/2024 10:00:00 AM Scheduled Provider: Location:[facility] Appointment Type:PC Nurse Lab Appointment Date:02/24/2024 10:00:00 AM Scheduled Provider:SILVERIO BOLIVAR APRN, CNP Location:[facility] Appointment Type:PC OV Follow Up Future Scheduled Tests Laboratory* C-Reactive Protein 01/01/24 * Helicobacter Pylori Antibody 01/01/24 * Prostate Specific Antigen 03/05/24 * A1C Hemoglobin 03/05/24 * Complete Blood Count 03/05/24 * Lipid Profile 03/05/24 * Albumin/Creatinine Ratio, Random Urine 08/16/23 * Albumin/Creatinine Ratio, Random Urine 03/05/24 * PTH, Intact 03/05/24 * Sedimentation Rate Automated 01/01/24 * Vitamin D Level 03/05/24 * Complete Metabolic Panel 03/05/24 [facility] Evaluation + Plan note Future Appointments Appointment Date:02/24/2024 10:00:00 AM Scheduled Provider:SILVERIO BOLIVAR APRN, CNP Location:[facility] Appointment Type:PC OV Follow Up Future Scheduled Tests Laboratory* C-Reactive Protein 01/01/24 * Helicobacter Pylori Antibody 01/01/24 * Albumin/Creatinine Ratio, Random Urine 08/16/23 * Albumin/Creatinine Ratio, Random Urine 03/05/24 * Sedimentation Rate Automated 01/01/24 [facility] evaluation + Plan note Future Appointments Appointment Date:04/29/2024 02:00:00 PM Scheduled Provider:RUFINA BAUER Location:[facility] Appointment Type:CV OV Appointment Date:08/19/2024 08:15:00 AM Scheduled Provider: Location:[facility] Appointment Type:PC Nurse Lab Appointment Date:08/24/2024 10:00:00 AM Scheduled Provider:SILVERIO BOLIVAR APRN, CNP Location:[facility] Appointment Type:PC OV Follow Up Future Scheduled Tests Laboratory* C-Reactive Protein 01/01/24 * Helicobacter Pylori Antibody 01/01/24 * Prostate Specific Antigen 08/24/24 * Complete Blood Count 08/24/24 * Lipid Profile 08/24/24 * Albumin/Creatinine Ratio, Random Urine 08/24/24 * Albumin/Creatinine Ratio, Random Urine 08/16/23 * Albumin/Creatinine Ratio, Random Urine 03/05/24 * PTH, Intact 08/24/24 * Sedimentation Rate Automated 01/01/24 * Vitamin D Level 08/24/24 * Complete Metabolic Panel 08/24/24 [facility] evaluation + Plan note Future Appointments Appointment Date:04/30/2024 07:30:00 AM Scheduled Provider: Location:[facility] Appointment Type:CV Procedure - Heart Lab/Hybrid OR Appointment Date:05/27/2024 02:00:00 PM Scheduled Provider:RUFINA BAUER Location:[facility] Appointment Type: OV Hospital Follow Up Appointment Date:08/19/2024 08:15:00 AM Scheduled Provider: Location:[facility] Appointment Type:PC Nurse Lab Appointment Date:08/24/2024 10:00:00 AM Scheduled Provider:SILVERIO BOLIVAR APRN, CNP Location:[facility] Appointment Type:PC OV Follow Up Future Scheduled Tests Laboratory* C-Reactive Protein 01/01/24 * Helicobacter Pylori Antibody 01/01/24 * Prostate Specific Antigen 08/24/24 * Complete Blood Count 08/24/24 * Lipid Profile 08/24/24 * Albumin/Creatinine Ratio, Random Urine 08/24/24 * Albumin/Creatinine Ratio, Random Urine 08/16/23 * Albumin/Creatinine Ratio, Random Urine 03/05/24 * PTH, Intact 08/24/24 * Sedimentation Rate Automated 01/01/24 * Vitamin D Level 08/24/24 * Complete Metabolic Panel 08/24/24 [facility] Evaluation + Plan note Future Appointments Appointment Date:06/03/2024 02:00:00 PM Scheduled Provider:JOSE MCKEON Location:[facility] Appointment Type:CTS OV Post Op Follow Up Appointment Date:06/10/2024 03:30:00 PM Scheduled Provider:RUFINA BAUER Location:[facility] Appointment Type:CV OV Hospital Follow Up Appointment Date:08/19/2024 08:15:00 AM Scheduled Provider: Location:[facility] Appointment Type:PC Nurse Lab Appointment Date:08/24/2024 10:00:00 AM Scheduled Provider:SILVERIO BOLIVAR APRN, CNP Location:[facility] Appointment Type:PC OV Follow Up Future Scheduled Tests Laboratory* Basic Metabolic Panel 06/03/24 * Basic Metabolic Panel 06/02/24 * Prostate Specific Antigen 08/24/24 * Complete Blood Count 08/24/24 * Lipid Profile 08/24/24 * Albumin/Creatinine Ratio, Random Urine 08/24/24 * PTH, Intact 08/24/24 * Vitamin D Level 08/24/24 * Complete Metabolic Panel 08/24/24 Radiology* XR Chest 2 Views (PA & Lateral) 06/02/24 [facility] Evaluation + Plan note Future Appointments Appointment Date:08/24/2024 10:00:00 AM Scheduled Provider:SILVERIO BOLIVAR APRN, CNP Location:[facility] Appointment Type:PC OV Follow Up Appointment Date:08/30/2024 01:30:00 PM Scheduled Provider:EVI BAUER Location: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 cancer metastatic to bone (HCC) [facility] Malignant neoplasm of prostate (HCC)- Primary Malignant neoplasm of prostate Prostate cancer metastatic to bone (HCC) [facility] Malignant neoplasm of prostate (HCC)- Primary Malignant neoplasm of prostate Bone metastases (HCC) Secondary malignant neoplasm of bone and bone marrow [facility] Malignant neoplasm of prostate (HCC) Malignant neoplasm of prostate Bone metastases (HCC) Secondary malignant neoplasm of bone and bone marrow [facility] Bone metastases (HCC)- Primary Secondary malignant neoplasm of bone and bone marrow Prostate cancer metastatic to bone (HCC) Malignant neoplasm of prostate (HCC) Malignant neoplasm of prostate [facility] Malignant neoplasm of prostate (HCC)- Primary Malignant neoplasm of prostate Bone metastases (HCC) Secondary malignant neoplasm of bone and bone marrow [facility] Bone metastases (HCC)- Primary Secondary malignant neoplasm of bone and bone marrow Malignant neoplasm of prostate (HCC) Malignant neoplasm of prostate 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) [facility] noteNo assessment information availableW[facility] Work Phone: Evaluation note* Diagnosis Malignant neoplasm of prostate (HCC)- Primary Malignant neoplasm of prostate Elevated LFTs Other abnormal blood chemistry Abnormal liver function test Other abnormal blood chemistry [facility] Diagnosis Prostate cancer metastatic to bone (HCC)- Primary Malignant neoplasm of prostate (HCC) Malignant neoplasm of prostate [facility] Diagnosis Malignant neoplasm of prostate (HCC)- Primary Malignant neoplasm of prostate Bone metastases (HCC) Secondary malignant neoplasm of bone and bone marrow Right upper quadrant abdominal pain Abdominal pain, right upper quadrant Elevated liver enzymes Other nonspecific abnormal serum enzyme levels [facility] Diagnosis Malignant neoplasm of prostate (HCC)- Primary Malignant neoplasm of prostate Bone metastases (HCC) Secondary malignant neoplasm of bone and bone marrow Elevated liver function tests Other abnormal blood chemistry [facility] Diagnosis Malignant neoplasm of prostate (HCC) Malignant neoplasm of prostate [facility] Diagnosis Malignant neoplasm of prostate (HCC)- Primary Malignant neoplasm of prostate Prostate cancer metastatic to bone (HCC) [facility] Diagnosis Prostate cancer metastatic to bone (HCC)- Primary [facility] Diagnosis Malignant neoplasm of prostate (HCC)- Primary Malignant neoplasm of prostate [facility] Diagnosis Malignant neoplasm of prostate (HCC) Malignant neoplasm of prostate Bone metastases Secondary malignant neoplasm of bone and bone marrow Right upper quadrant abdominal pain Abdominal pain, right upper quadrant Elevated liver enzymes Other nonspecific abnormal serum enzyme levels [facility] Diagnosis Onset Date Resolution Status Prostate cancer metastatic to bone acute Dyspnea noneactive [facility] Work Phone: Evaluation note* Diagnosis Prostate cancer metastatic to bone (HCC)- Primary Malignant neoplasm of prostate (HCC) Malignant neoplasm of prostate [facility] Prostate cancer metastatic to bone (HCC)- Primary [facility] Diagnosis Malignant neoplasm of prostate (HCC)- Primary Malignant neoplasm of prostate Prostate cancer metastatic to bone (HCC) [facility] Diagnosis Prostate cancer metastatic to bone (HCC)- Primary [facility] Diagnosis Malignant neoplasm of prostate (HCC)- Primary Malignant neoplasm of prostate Prostate cancer metastatic to bone (HCC) [facility] Diagnosis Malignant neoplasm of prostate (HCC)- Primary Malignant neoplasm of prostate Prostate cancer metastatic to bone (HCC) [facility] Diagnosis Malignant neoplasm of prostate (HCC)- Primary Malignant neoplasm of prostate Prostate cancer metastatic to bone (HCC) [facility] Diagnosis Malignant neoplasm of prostate (HCC)- Primary Malignant neoplasm of prostate [facility] Diagnosis Malignant neoplasm of prostate (HCC) Malignant neoplasm of prostate [facility]* Diagnosis Prostate cancer metastatic to bone (HCC)- Primary [facility] [place] [facility] Diagnosis Prostate cancer metastatic to bone (HCC)- Primary [facility]* Diagnosis Malignant neoplasm of prostate (HCC) Malignant neoplasm of prostate [facility] [place] [facility]* Diagnosis Prostate cancer metastatic to bone (HCC)- Primary [facility] [place] [facility]* Diagnosis Prostate cancer metastatic to bone (HCC)- Primary [facility]* Diagnosis Prostate cancer metastatic to bone (HCC)- Primary [facility] [place] [facility]* Diagnosis Prostate cancer metastatic to bone (HCC)- Primary [facility] [place] [facility]* Diagnosis Prostate cancer metastatic to bone (HCC) [facility] [place] [facility]* Diagnosis Prostate cancer metastatic to bone (HCC)- Primary [facility] [place] [facility]* Diagnosis Malignant neoplasm of prostate (HCC) Malignant neoplasm of prostate [facility] [place] [facility]* Diagnosis Malignant neoplasm of prostate (HCC)- Primary Malignant neoplasm of prostate [facility] [place] [facility]* Diagnosis Malignant neoplasm of prostate (HCC)- Primary Malignant neoplasm of prostate Prostate cancer metastatic to bone (HCC) [facility] [place] [facility]* Diagnosis Radiotherapy follow-up- Primary Radiotherapy follow-up examination Prostate cancer metastatic to bone (HCC) [facility] [place] [facility]* Diagnosis Prostate cancer metastatic to bone (HCC)- Primary [facility] Narrative No data available for this section [facility] Hospital Discharge instructions No data available for this section [facility] Progress note No data available for this section [facility] Reason for referral (narrative)* Diagnostic Procedure Only (Routine) - Closed Specialty Diagnoses / Procedures Referred By Contac t Referred To Contact US IMAGING Diagnoses Malignant neoplasm of prostate (HCC) Bone metastases (HCC) Right upper quadrant abdominal pain Elevated liver enzymes Procedures US ABD RT UPPER QUADRANT US ABDOMINAL REAL TIME W/IMAGE LIMITED Vianney Garcia APRN.PET TRAINER [address] [place] [address] Us Imaging Referral ID Status Reason Start Date Expiration Date V isits Requested Visits Authorized [id number] Closed Auto-Generate d Referral 04/16/2022 05/16/2023 1 1 * Diagnostic Procedure Only (Routine) - Pending Review Specialty Diagnoses / Procedures Referred By Contac t Referred To Contact US IMAGING Diagnoses Malignant neoplasm of prostate (HCC) Bone metastases (HCC) Right upper quadrant abdominal pain Elevated liver enzymes Procedures US ABD RT UPPER QUADRANT US ABDOMINAL REAL TIME W/IMAGE LIMITED Vianney Garcia APRN.PET TRAINER [address] [place] [address] Us Imaging Referral ID Status Reason Start Date Expiration Date Visits Requested Visits Authorized [id number] Pending Review Auto-Generat ed Referral 04/16/2022 05/16/2023 1 1 [facility] for referral (narrative)* Diagnostic Procedure Only (Routine) - Closed Specialty Diagnoses / Procedures Referred By Contac t Referred To Contact US IMAGING Diagnoses Malignant neoplasm of prostate (HCC) Bone metastases Right upper quadrant abdominal pain Elevated liver enzymes Procedures US ABD RT UPPER QUADRANT US ABDOMINAL REAL TIME W/IMAGE LIMITED Vianney Garcia APRN.PET TRAINER [address] [place] [address] [place] [id number] Referral ID Status Reason Start Date Expiration Date V isits Requested Visits Authorized [id number] Closed Auto-Generate d Referral 04/16/2022 05/16/2023 1 1 [facility] for referral (narrative)No reason for referral information availableWGeorgetown [facility] Work Phone: Medications Administered Section Inactive Administered Medications - up to 3 most recent administrations Medication Order MAR Action Action Date Dose Rate Site leuprolide 22.5 mg injection (LUPRON DEPOT) 22.5 mg, INTRAMUSCULAR, ONCE, 1 dose, On Fri08/07/21 at 1000, Hazardous Chemotherapy Drug: Use appropriate PPE. Given 08/07/2021 10:34 AM EDT 22.5 mg Buttocks, Left zoledronic ff-ejrtwics-9.9NaCl 4 mg iv piggyback 100 mL (ZOMETA) 4 mg, INTRAVENOUS, Administer over 15 Minutes, ONCE, 1 dose, On Fri08/07/21 at 1030, Hazardous Potential Reproductive Risk Drug: Use appropriate PPE. New Bag/Syringe/Bottl e 08/07/2021 10:04 AM EDT 4 mg Inactive Administered Medications - up to 3 most recent administrations Medication Order MAR Action Action Date Dose Rate Site leuprolide 22.5 mg injection (LUPRON DEPOT) 22.5 mg, INTRAMUSCULAR, ONCE, 1 dose, On Fri10/30/21 at 1000, Hazardous Chemotherapy Drug: Use appropriate PPE. Given 10/30/2021 10:27 AM EDT 22.5 mg Buttocks, Right zoledronic cv-mhkalrgu-9.9NaCl 4 mg iv piggyback 100 mL (ZOMETA) 4 mg, INTRAVENOUS, Administer over 15 Minutes, ONCE, 1 dose, On Fri10/30/21 at 1000, Hazardous Potential Reproductive Risk Drug: Use appropriate PPE. New Bag/Syringe/Bottl e 10/30/2021 9:58 AM EDT 4 mg Inactive Administered Medications - up to 3 most recent administrations Medication Order MAR Action Action Date Dose Rate Site leuprolide 22.5 mg injection (LUPRON DEPOT) 22.5 mg, INTRAMUSCULAR, ONCE, 1 dose, On Fri01/22/22 at 1230, Hazardous Chemotherapy Drug: Use appropriate PPE. Given 01/22/2022 12:25 PM EST 22.5 mg Buttocks, Left zoledronic or-ycfqwndb-9.9NaCl 4 mg iv piggyback 100 mL (ZOMETA) 4 mg, INTRAVENOUS, Administer over 15 Minutes, ONCE, 1 dose, On Fri01/22/22 at 1230, Hazardous Potential Reproductive Risk Drug: Use appropriate PPE. New Bag/Syringe/Bottl e 01/22/2022 12:27 PM EST 4 mg Inactive Administered Medications - up to 3 most recent administrations Medication Order MAR Action Action Date Dose Rate Site leuprolide 22.5 mg injection (LUPRON DEPOT) 22.5 mg, INTRAMUSCULAR, ONCE, 1 dose, On Fri04/16/22 at 0930, Hazardous Chemotherapy Drug: Use appropriate PPE. Given 04/16/2022 10:09 AM EST 22.5 mg Buttocks, Left zoledronic ws-vtsfpgtp-5.9NaCl 4 mg iv piggyback 100 mL (ZOMETA) 4 mg, INTRAVENOUS, Administer over 15 Minutes, ONCE, 1 dose, On Fri04/16/22 at 1000, Hazardous Potential Reproductive Risk Drug: Use appropriate PPE. New Bag/Syringe/Bottl e 04/16/2022 9:45 AM EST 4 mg Inactive Administered Medications - up to 3 most recent administrations Medication Order MAR Action Action Date Dose Rate Site leuprolide 22.5 mg injection (LUPRON DEPOT) 22.5 mg, INTRAMUSCULAR, ONCE, 1 dose, On Fri07/09/22 at 0930, Hazardous Chemotherapy Drug: Use appropriate PPE. Given 07/09/2022 9:58 AM EDT 22.5 mg Buttocks, Right zoledronic mw-kpameytd-2.9NaCl 4 mg iv piggyback 100 mL (ZOMETA) 4 mg, INTRAVENOUS, Administer over 15 Minutes, ONCE, 1 dose, On Fri07/09/22 at 1000, Hazardous Potential Reproductive Risk Drug: Use appropriate PPE. New Bag/Syringe/Bottl e 07/09/2022 9:40 AM EDT 4 mg Inactive Administered Medications - up to 3 most recent administrations Medication Order MAR Action Action Date Dose Rate Site leuprolide 22.5 mg injection (LUPRON DEPOT) 22.5 mg, INTRAMUSCULAR, ONCE, 1 dose, On Fri12/24/22 at 1030, Hazardous Chemotherapy Drug: Use appropriate PPE. Given 12/24/2022 10:15 AM EDT 22.5 mg Buttocks, Right zoledronic nm-pejmoptj-0.9NaCl 4 mg iv piggyback 100 mL (ZOMETA) 4 mg, INTRAVENOUS, Administer over 15 Minutes, ONCE, 1 dose, On Fri12/24/22 at 1030, Hazardous Potential Reproductive Risk Drug: Use appropriate PPE. New Bag/Syringe/Bottl e 12/24/2022 10:15 AM EDT 4 mg Advance Directives No Advanced Directives Records FoundDocuments on File Type Date Recorded Patient Group Account Director Expl anation Advance Directive(s) 10/27/2019 12:48 PM Advance Directive Response Recorded Date/ Time Living Will No January 08 9:27am Power of Insole Tack Puller Hand No January 08, 2018 9:27am Advance Directive Response Recorded Date/ Time Living Will No January 08 10:27am Do you have a Healthcare Power of Insole Tack Puller Hand? No January 08, 2018 10:27am Advance Directive Response Recorded Date/ Time Living Will No January 08 9:27am Do you have a Healthcare Power of Insole Tack Puller Hand? No January 08, 2018 9:27am Reason for Referral Specialty Diagnoses / Procedures Referred By Contac t Referred To Contact CT IMAGING Diagnoses Bone metastases (HCC) Malignant neoplasm of prostate (HCC) 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) Procedures CT CHEST WO IVCON DIAGNOSTIC COMPUTED TOMOGRAPHY THORAX W/O CNTRST Rogelio Bee MD [address] [place] [address] Ct Imaging Referral ID Status Reason Start Date Expiration Date Visits Requested Visits Authorized [id number] Authorized Auto-Generat ed Referral 2 03/24/2023 1 1 Chief Complaint and Reason for Visit Chief Complaint COUGH, SOB Chief Complaint COPD DYSPNEA DYSPNEA Reason for Visit Prostate cancer meta static to bone Dyspnea Chief Complaint COPD DYSPNEA DYSPNEA DYSPNEA DYSPNEA Reason for Visit Prostate cancer meta static to bone Dyspnea Chief Complaint Admit Date Occlusion and stenosis of right carotid artery October 01, 2024 10:43am Chief Complaint Admit Date Occlusion and stenosis of right carotid artery October 01, 2024 10:43am NICOTINE DEP November 29, 2024 1:14pm Chief Complaint Admit Date Occlusion and stenosis of right carotid artery October 01, 2024 10:43am NICOTINE DEP November 29, 2024 1:14pm 1 Y FU December 28, 2024 1 :34pm Reason for Visit Admit Date Irregular heart rhythm December 28 1:34pm Asthma-chronic obstructive p ulmonary disease overlap syndrome December 28, 2024 1:34pm Prostate cancer December 28, 2024 1 :34pm Family History No Family History Records Found Relationship Condition Age at Onset Recorded Date/T lazaro mother Malignant neoplasm of breast Unknown Disorder of thyroid Unknown brother Cardiac disease Unknown Lupus Unknown Summary Purpose Additional Source Comments Care Team (unrecognized sect ion and content) Transportation Attendant Relationship Specialty Start Date End Date Silverio Bolivar, PET TRAINER [address] [place] [address] PCP - General Family Practice 07/07/18 [facility] [address] [place] [address] Transportation Manager Urology 09/07/18 Rogelio Bee MD [address] [place] [address] Physician Hematology/Oncology 09/07/18 Meagan Caro, MANJINDER [address] [place] [address] Specialty Housekeeper Child Care Hematology/Oncology 08/07/21 Transportation Attendant Relationship Specialty Start Date End Date Silverio Bolivar, PET TRAINER [address] [place] [address] PCP - General Family Practice 07/07/18 [facility] [address] [place] [address] Transportation Manager Urology 09/07/18 Rogelio Bee MD [address] [place] [address] Physician Hematology/Oncology 09/07/18 Meagan Caro, MANJINDER [address] [place] [address] Specialty Housekeeper Child Care Hematology/Oncology 08/07/21 Transportation Attendant Relationship Specialty Start Date End Date Silverio Bolivar, PET TRAINER [address] [place] [address] PCP - General Family Practice 07/07/18 [facility] [address] [place] [address] Transportation Manager Urology 09/07/18 Rogelio Bee MD [address] [place] [address] Physician Hematology/Oncology 09/07/18 Meagan Caro, RN [address] [place] [address] Specialty Housekeeper Child Care Hematology/Oncology 08/07/21 Transportation Attendant Relationship Specialty Start Date End Date Silverio Bolivar, PET TRAINER [address] [place] [address] PCP - General Family Medicine 07/07/18 [facility] [address] [place] [address] Transportation Manager Urology 09/07/18 Rogelio Bee MD [address] [place] [address] Physician Hematology/Oncology 09/07/18 Meagan Caro, MANJINDER [address] [place] [address] Specialty Housekeeper Child Care Hematology/Oncology 08/07/21 Transportation Attendant Relationship Specialty Start Date End Date Silverio Bolivar, PET TRAINER [address] [place] [address] PCP - General Family Medicine 07/07/18 [facility] [address] [place] [address] Transportation Manager Urology 09/07/18 Rogelio Bee MD [address] [place] [address] Physician Hematology/Oncology 09/07/18 Meagan Caro, RN [address] [place] [address] Specialty Housekeeper Child Care Hematology/Oncology 08/07/21 Transportation Attendant Relationship Specialty Start Date End Date Silverio Bolivar, PET TRAINER [address] [place] [address] PCP - General Family Medicine 07/07/18 Kelvin Vidal [address] [place] [address] Transportation Manager Urology 09/07/18 Rogelio Bee MD [address] [place] [address] Physician Hematology/Oncology 09/07/18 Meagan Caro, MANJINDER [address] [place] [address] Specialty Housekeeper Child Care Hematology/Oncology 08/07/21 Transportation Attendant Relationship Specialty Start Date End Date Silverio Bolivar, PET TRAINER [address] [place] [address] PCP - General Family Medicine 07/07/18 Kelvin Vidal MD [address] [place] [address] Transportation Manager Urology 09/07/18 Rogelio Bee MD [address] [place] [address] Physician Hematology/Oncology 09/07/18 Meagan Caro, MANJINDER [address] [place] [address] Specialty Housekeeper Child Care Hematology/Oncology 08/07/21 Transportation Attendant Relationship Specialty Start Date End Date Silverio Bolivar, PET TRAINER [address] [place] [address] PCP - General Family Medicine 07/07/18 Kelvin Vidal MD [address] [place] [address] Transportation Manager Urology 09/07/18 Rogelio Bee MD [address] [place] [address] Physician Hematology/Oncology 09/07/18 Meagan Caro, RN [address] [place] [address] Specialty Housekeeper Child Care Hematology/Oncology 08/07/21 Transportation Attendant Relationship Specialty Start Date End Date Silverio Bolivar, PET TRAINER [address] [place] [address] PCP - General Family Medicine 07/07/18 Kelvin Vidal MD [address] [place] [address] Transportation Manager Urology 09/07/18 Rogelio Bee MD [address] [place] [address] Physician Hematology/Oncology 09/07/18 Meagan Caro, RN [address] [place] [address] Specialty Housekeeper Child Care Hematology/Oncology 08/07/21 Transportation Attendant Relationship Specialty Start Date End Date Silverio Bolivar, PET TRAINER [address] [place] [address] PCP - General Family Medicine 07/07/18 Kelvin Vidal MD [address] [address] [place] [address] Transportation Manager Urology 09/07/18 Rogelio Bee MD [address] [place] [address] Physician Hematology/Oncology 09/07/18 Meagan Caro, RN [address] [place] [address] Specialty Housekeeper Child Care Hematology/Oncology 08/07/21 Transportation Attendant Relationship Specialty Start Date End Date Silverio Bolivar, PET TRAINER [address] [place] [address] PCP - General Family Medicine 07/07/18 Kelvin Vidal MD [address] [place] [address] Transportation Manager Urology 09/07/18 Rogelio Bee MD [address] [place] [address] Physician Hematology/Oncology 09/07/18 Meagan Caro, RN [address] [place] [address] Specialty Housekeeper Child Care Hematology/Oncology 08/07/21 Transportation Attendant Relationship Specialty Start Date End Date Silverio Bolivar, PET TRAINER [address] [place] [address] PCP - General Family Medicine 07/07/18 Kelvin Vidal MD [address] [address] [place] [address] Transportation Manager Urology 09/07/18 Rogelio Bee MD [address] [place] [address] Physician Hematology/Oncology 09/07/18 Meagan Caor, MANJINDER [address] [place] [address] Specialty Housekeeper Child Care Hematology/Oncology 08/07/21 Transportation Attendant Relationship Specialty Start Date End Date Silverio Bolivar, PET TRAINER [address] [place] [address] PCP - General Family Medicine 07/07/18 Kelvin Vidal MD [address] [place] [address] Transportation Manager Urology 09/07/18 Rogelio Bee MD [address] [place] [address] Physician Hematology/Oncology 09/07/18 Meagan Caro, MANJINDER [address] [place] [address] Specialty Housekeeper Child Care Hematology/Oncology 08/07/21 Transportation Attendant Relationship Specialty Start Date End Date Silverio Bolivar, PET TRAINER [address] [place] [address] PCP - General Family Medicine 07/07/18 Kelvin Vidal MD [address] [place] [address] Transportation Manager Urology 09/07/18 Rogelio Bee MD [address] [place] [address] Physician Hematology/Oncology 09/07/18 Meagan Caro, RN [address] [place] [address] Specialty Housekeeper Child Care Hematology/Oncology 08/07/21 Transportation Attendant Relationship Specialty Start Date End Date Silverio Bolivar, PET TRAINER [address] [place] [address] PCP - General Family Medicine 07/07/18 Kelvin Vidal MD [address] [address] Transportation Manager Urology 09/07/18 Rogelio Bee MD [address] [place] [address] Physician Hematology/Oncology 09/07/18 Meagan Caro, MANJINDER [address] [place] [address] Specialty Housekeeper Child Care Hematology/Oncology 08/07/21 Transportation Attendant Relationship Specialty Start Date End Date Silverio Bolivar, PET TRAINER [address] [place] [address] PCP - General Family Medicine 07/07/18 Kelvin Vidal MD [address] [place] [address] Transportation Manager Urology 09/07/18 Meagan Caro, MANJINDER [address] [place] [address] Specialty Housekeeper Child Care Hematology/Oncology 08/07/21 Luis Miguel Guy MD [address] [place] [address] Hematology/Oncology 09/30/22 Tanja Patel LISW [address] [place] [address] Publications Distribution Clerk Hematology/Oncology 11/26/22 Transportation Attendant Relationship Specialty Start Date End Date Silverio Bolivar, PET TRAINER [address] [place] [address] PCP - General Family Medicine 07/07/18 Kelvin Vidal MD [address] [place] [address] Transportation Manager Urology 09/07/18 Meagan Caro RN [address] [place] [address] Specialty Housekeeper Child Care Hematology/Oncology 08/07/21 Luis Miguel Guy MD [address] [place] [address] Hematology/Oncology 09/30/22 Tanja Patel LISW [address] [place] [address] Publications Distribution Clerk Hematology/Oncology 11/26/22 Transportation Attendant Relationship Specialty Start Date End Date Silverio Bolivar, PET TRAINER [address] [place] [address] PCP - General Family Medicine 07/07/18 Kelvin Vidal MD [address] [place] [address] Transportation Manager Urology 09/07/18 Meagan Caro, MANJINDER [address] [place] [address] Specialty Housekeeper Child Care Hematology/Oncology 08/07/21 Luis Miguel Guy MD [address] [place] [address] Hematology/Oncology 09/30/22 Tajna Patel LISW [address] [place] [address] Publications Distribution Clerk Hematology/Oncology 11/26/22 Transportation Attendant Relationship Specialty Start Date End Date Silverio Bolivar, PET TRAINER [address] [place] [address] PCP - General Family Medicine 07/07/18 Kelvin Vidal MD [address] [place] [address] Transportation Manager Urology 09/07/18 Meagan Caro, MANJINDER [address] [place] [address] Specialty Housekeeper Child Care Hematology/Oncology 08/07/21 Luis Miguel Guy MD [address] [place] [address] Hematology/Oncology 09/30/22 Tanja Patel LISW [address] [place] [address] Publications Distribution Clerk Hematology/Oncology 11/26/22 Transportation Attendant Relationship Specialty Start Date End Date Silverio Bolivar, PET TRAINER [address] [place] [address] PCP - General Family Medicine 07/07/18 Kelvin Vidal MD [address] [address] [place] [address] Transportation Manager Urology 09/07/18 Meagan Caro, MANJINDER [address] [place] [address] Specialty Housekeeper Child Care Hematology/Oncology 08/07/21 Luis Miguel Guy MD [address] [place] [address] Hematology/Oncology 09/30/22 Tanja Patel LISW [address] [facility] [place] [address] Publications Distribution Clerk Hematology/Oncology 11/26/22 Transportation Attendant Relationship Specialty Start Date End Date Silverio Bolivar, PET TRAINER [address] [place] [address] PCP - General Family Medicine 07/07/18 Kelvin Vidal MD [address] [place] [address], [place] [address] Transportation Manager Urology 09/07/18 Meagan Caro, MANJINDER [address] [facility] [place] [address] Specialty Housekeeper Child Care Hematology/Oncology 08/07/21 Luis Miguel Guy MD [address] [facility] [place] [address] Hematology/Oncology 09/30/22 Tanja Patel LISW [address] [facility] [place] [address] Publications Distribution Clerk Hematology/Oncology 11/26/22 Transportation Attendant Relationship Specialty Start Date End Date Silverio Bolivar, PET TRAINER 0 [place] [address] PCP - General Family Medicine 07/07/18 Kelvin Vidal MD [address] [place] [address] Transportation Manager Urology 09/07/18 Rogelio Bee MD [address] [place] [address], [place] [address] Physician Hematology/Oncology 09/07/18 09/29/22 GordoMeagan verma RN [address] [facility] [address] [place], [place] [address] Specialty Housekeeper Child Care Hematology/Oncology 08/07/21 Team Status: Active Member Role Status Dates Silverio Bolivar HAND STEMMER, HAND STEMMER-C Family Provider Activ e Silverio Bolivar HAND STEMMER, HAND STEMMER-C Primary Care Provider Active Team Status: Inactive Member Role Status Dates Silverio Bolivar HAND STEMMER, HAND STEMMER-C Primary Care Provider, Referring Provider Active Dr. Frandy Montiel MD Attending Provider Active Team Status: Active Member Role Status Dates Silverio Bolivar HAND STEMMER, HAND STEMMER-C Primary Care Provider Active Dr. Frandy Montiel MD Referring Provider, Other Provid er Active Dr. Montana Baptiste DO Attending Provider Active Team Status: Inactive Member Role Status Dates Silverio Bolivar HAND STEMMER, HAND STEMMER-C Primary Care Provider Active Dr. Frandy Montiel MD Attending Provider, Referring Pr ovider Active Transportation Attendant Relationship Specialty Start Date End Date Silverio Bolivar, PET TRAINER [address] [place] [address] PCP - General Family Medicine 07/07/18 Kelvin Vidal MD [address] [place] [address]61 Transportation Manager Urology 09/07/18 Meagan Caro RN [address] [facility] [place], [place] [address] Specialty Housekeeper Child Care Hematology/Oncology 08/07/21 Luis Miguel Guy MD [address] [facility] [place], [place] [address] Hematology/Oncology 09/30/22 Tanja Patel LISW [address] [place] [address] Publications Distribution Clerk Hematology/Oncology 11/26/22 Transportation Attendant Relationship Specialty Start Date End Date Silverio Bolivar, PET TRAINER [address] [place] [address], [place] [address] PCP - General Family Medicine 07/07/18 Kelvin Vidal MD [address] [place] [address] Transportation Manager Urology 09/07/18 Meagan Caro RN [address] [place] [address] Specialty Housekeeper Child Care Hematology/Oncology 08/07/21 Luis Miguel Guy MD [address] [place] [address] Hematology/Oncology 09/30/22 Tanja Patel LISW [address] [place] [address] Publications Distribution Clerk Hematology/Oncology 11/26/22 Transportation Attendant Relationship Specialty Start Date End Date Silverio Bolivar, PET TRAINER [address] [place] [address] PCP - General Family Medicine 07/07/18 Kelvin Vidal MD [address] [place] [address], [place] 6[address] Transportation Manager Urology 09/07/18 Meagan Caro, MANJINDER [address] [place] [address] Specialty Housekeeper Child Care Hematology/Oncology 08/07/21 Luis Miguel Guy MD [address] [place] [address] Hematology/Oncology 09/30/22 Tanja Patel LISW [address] [place] [address] Publications Distribution Clerk Hematology/Oncology 11/26/22 Transportation Attendant Relationship Specialty Start Date End Date Silverio Bolivar, PET TRAINER [address] [place] [address] PCP - General Family Medicine 07/07/18 Kelvin Vidal MD [address] [place] [address], [place] [address] Transportation Manager Urology 09/07/18 Meagan Caro, MANJINDER [address] [place] [address] Specialty Housekeeper Child Care Hematology/Oncology 08/07/21 Luis Miguel Guy MD [address] [place] [address] Hematology/Oncology 09/30/22 Tanja Patel LISW [address] [place] [address] Publications Distribution Clerk Hematology/Oncology 11/26/22 Transportation Attendant Relationship Specialty Start Date End Date Silverio Bolivar, PET TRAINER [address] [place] [address] PCP - General Family Medicine 07/07/18 Kelvin Vidal MD [address] [place] [address], [place] [address] Transportation Manager Urology 09/07/18 Meagan Caro, MANJINDER [address] [place] [address] Specialty Housekeeper Child Care Hematology/Oncology 08/07/21 Luis Miguel Guy MD [address] [place] [address] Hematology/Oncology 09/30/22 Tanja Patel LISW [address] [place] [address] Publications Distribution Clerk Hematology/Oncology 11/26/22 Transportation Attendant Relationship Specialty Start Date End Date Silverio Bolivar, PET TRAINER [address] [place] [address] PCP - General Family Medicine 07/07/18 Kelvin Vidal MD [address] [address] [place] [address] Transportation Manager Urology 09/07/18 Meagan Caro, MANJINDER [address] [facility] [place] [address] Specialty Housekeeper Child Care Hematology/Oncology 08/07/21 Luis Miguel Guy MD [address] [facility] [place] [address] Hematology/Oncology 09/30/22 Tanja Patel LISW [address] [place] [address] Publications Distribution Clerk Hematology/Oncology 11/26/22 Claudia Smith [address] [facility] [place] [address] Vascular Medicine 11/26/23 Transportation Attendant Relationship Specialty Start Date End Date Silverio Bolivar, PET TRAINER [address] [place] [address] PCP - General Family Medicine 07/07/18 Kelvin Vidal MD [address] [address] [place] [address] Transportation Manager Urology 09/07/18 Meagan Caro RN [address] [place] [address] Specialty Housekeeper Child Care Hematology/Oncology 08/07/21 Luis Miguel Guy MD [address] [place] [address] Hematology/Oncology 09/30/22 Tanja Patel LISW [address] [place] [address] Publications Distribution Clerk Hematology/Oncology 11/26/22 Claudia Smith [address] [place] [address] Vascular Medicine 11/26/23 Transportation Attendant Relationship Specialty Start Date End Date Silverio Bolivar, PET TRAINER [address] [place] [address] PCP - General Family Medicine 07/07/18 Kelvin Vidal MD [address] [place] [address] [place] [address] Transportation Manager Urology 09/07/18 Meagan Caro RN [address] [place] [address] Specialty Housekeeper Child Care Hematology/Oncology 08/07/21 Luis Miguel Guy MD [address] [place] [address] Hematology/Oncology 09/30/22 Tanja Patel LISW [address] [place] [address] Publications Distribution Clerk Hematology/Oncology 11/26/22 Claudia Smith [address] [place] [address] Vascular Medicine 11/26/23 Transportation Attendant Relationship Specialty Start Date End Date Silverio Bolivar, PET TRAINER [address] [place] [address] PCP - General Family Medicine 07/07/18 Kelvin Vidal MD [address] [address] [place], [place] [address]31 Transportation Manager Urology 09/07/18 Meagan Caro RN [address] [place] [address] Specialty Housekeeper Child Care Hematology/Oncology 08/07/21 Luis Miguel Guy MD [address] [place] [address] Hematology/Oncology 09/30/22 Tanja Patel LISW [address] [place] [address] Publications Distribution Clerk Hematology/Oncology 11/26/22 Claudia Smith [address] [place] [address] Vascular Medicine 11/26/23 Transportation Attendant Relationship Specialty Start Date End Date Silverio Bolivar, PET TRAINER [address] [place] [address] PCP - General Family Medicine 07/07/18 Kelvin Vidal MD [address] [place] [address] [place] [address] Transportation Manager Urology 09/07/18 Meagan Caro RN [address] [place] [address] Specialty Housekeeper Child Care Hematology/Oncology 08/07/21 Luis Miguel Guy MD [address] [place] [address] Hematology/Oncology 09/30/22 Tanja Patel LISW [address] [place] [address] Publications Distribution Clerk Hematology/Oncology 11/26/22 Claudia Smith [address] [place] [address] Vascular Medicine 11/26/23 Transportation Attendant Relationship Specialty Start Date End Date Silverio Bolivar, PET TRAINER [address] [place] [address] PCP - General Family Medicine 07/07/18 Kelvin Vidal MD [address] [place] [address] [place] [address] Transportation Manager Urology 09/07/18 Meagan Caro, RN [address] [place] [address] Specialty Housekeeper Child Care Hematology/Oncology 08/07/21 Luis Miguel Guy MD [address] [place] [address] Hematology/Oncology 09/30/22 Tanja Patel LISW [address] [place] [address] Publications Distribution Clerk Hematology/Oncology 11/26/22 Claudia Smith [address] [place] [address] Vascular Medicine 11/26/23 Transportation Attendant Relationship Specialty Start Date End Date Silverio Bolivar, PET TRAINER [address] [place] [address] PCP - General Family Medicine 07/07/18 Kelvin Vidal MD [address] [address] [place] [address] Transportation Manager Urology 09/07/18 Meagan Caro, RN [address] [facility] [place] [address] Specialty Housekeeper Child Care Hematology/Oncology 08/07/21 Luis Miguel Guy MD [address] [facility] [place] [address] Hematology/Oncology 09/30/22 Tanja Patel LISW [address] [place] [address] Publications Distribution Clerk Hematology/Oncology 11/26/22 Claudia Smith [address] [place] [address] Vascular Medicine 11/26/23 Transportation Attendant Relationship Specialty Start Date End Date Silverio Bolivar, PET TRAINER [address] [place] [address] PCP - General Family Medicine 07/07/18 Kelvin Vidal MD [address] [address] [place] [address] Transportation Manager Urology 09/07/18 Meagan Caro, MANJINDER [address] [place] [address] Specialty Housekeeper Child Care Hematology/Oncology 08/07/21 Luis Miguel Guy MD [address] [place] [address] Hematology/Oncology 09/30/22 Tanja Patel LISW [address] [place] [address] Publications Distribution Clerk Hematology/Oncology 11/26/22 Claudia Smith [address] [place] [address] Vascular Medicine 11/26/23 Transportation Attendant Relationship Specialty Start Date End Date Silverio Bolivar, PET TRAINER [address] [place] [address] PCP - General Family Medicine 07/07/18 Kelvin Vidal MD [address] [place] [address] [place], [place] 314731 Transportation Manager Urology 09/07/18 Meagan Caro, RN [address] [place] [address] Specialty Housekeeper Child Care Hematology/Oncology 08/07/21 Luis Miguel Guy MD [address] [place] [address] Hematology/Oncology 09/30/22 Tanja Patel LISW [address] [place] [address] Publications Distribution Clerk Hematology/Oncology 11/26/22 Claudia Smith [address] [place] [address] Vascular Medicine 11/26/23 Jack Pearson MD [address] [place] [address] Radiation Oncology 08/06/24 Transportation Attendant Relationship Specialty Start Date End Date Silverio Bolivar, PET TRAINER [address] [place] [address] PCP - General Family Medicine 07/07/18 Kelvin Vidal MD [address], [place] [address] Transportation Manager Urology 09/07/18 Meagan Caro, MANJINDER [address] [place], [place] [address] Specialty Housekeeper Child Care Hematology/Oncology 08/07/21 Luis Miguel Guy MD [address] [place] [address] Hematology/Oncology 09/30/22 Tanja Patel LISW [address] [place] [address] Publications Distribution Clerk Hematology/Oncology 11/26/22 Claudia Smith [address] [facility] [place] [address] Vascular Medicine 11/26/23 Jack Pearson MD [address] [place] [address] Radiation Oncology 08/06/24 Transportation Attendant Relationship Specialty Start Date End Date Silverio Bolivar, PET TRAINER [address] [place] [address] PCP - General Family Medicine 07/07/18 Kelvin Vidal MD [address] [place] [address], [place] [address] Transportation Manager Urology 09/07/18 Meagan Caro, RN [address] [place], [place] [address] Specialty Housekeeper Child Care Hematology/Oncology 08/07/21 Luis Miguel Guy MD [address] [place], [place] [address] Hematology/Oncology 09/30/22 Tanja Patel LISW [address] [place] [address] Publications Distribution Clerk Hematology/Oncology 11/26/22 Claudia Smith [address] [facility] [place] [address] Vascular Medicine 11/26/23 Jack Pearson MD [address] [place] [address] Radiation Oncology 08/06/24 Transportation Attendant Relationship Specialty Start Date End Date Silverio Bolivar, PET TRAINER [address] [place] [address] PCP - General Family Medicine 07/07/18 Kelvin Vidal MD [address] [place] [address] [place] [address] Transportation Manager Urology 09/07/18 Meagan Caro, MANJINDER [address] [place], [place] [id number] Specialty Housekeeper Child Care Hematology/Oncology 08/07/21 Luis Miguel Guy MD [address] [place], [place] [address] Hematology/Oncology 09/30/22 Tanja Patel LISW [address] [place] [address] Publications Distribution Clerk Hematology/Oncology 11/26/22 Claudia Smith [address] [facility] [place] [address] Vascular Medicine 11/26/23 Jack Pearson MD [address] [place] [address] Radiation Oncology 08/06/24 Transportation Attendant Relationship Specialty Start Date End Date Silverio Bolivar, PET TRAINER [address] [place] [address] PCP - General Family Medicine 07/07/18 Kelvin Vidal MD [address] [place] [address] [place], [place] [address] Transportation Manager Urology 09/07/18 Meagan Caor, RN [address] [place] [address] Specialty Housekeeper Child Care Hematology/Oncology 08/07/21 Luis Miguel Guy MD [address] [place] [address] Hematology/Oncology 09/30/22 Tanja Patel LISW [address] [place] [address] Publications Distribution Clerk Hematology/Oncology 11/26/22 Claudia Smith [address] [facility] [place] [address] Vascular Medicine 11/26/23 Jack Pearson MD [address] [place] [address] Radiation Oncology 08/06/24 Transportation Attendant Relationship Specialty Start Date End Date Silverio Bolivar, PET TRAINER [address] [place] [address] PCP - General Family Medicine 07/07/18 Kelvin Vidal MD [address] [place] [address] Transportation Manager Urology 09/07/18 Meagan Caro, MANJINDER [address] [place] [address] Specialty Housekeeper Child Care Hematology/Oncology 08/07/21 Luis Miguel Guy MD [address] [place] [address] Hematology/Oncology 09/30/22 Tanja Patel LISW [address] [place] [address] Publications Distribution Clerk Hematology/Oncology 11/26/22 Claudia Smith [address] [facility] [place] [address] Vascular Medicine 11/26/23 Jack Pearson MD [address] [place] [address] Radiation Oncology 08/06/24 Transportation Attendant Relationship Specialty Start Date End Date Silverio Bolivar, PET TRAINER [address] [place] [address] PCP - General Family Medicine 07/07/18 Kelvin Vidal MD [address] [address] [place] [address] Transportation Manager Urology 09/07/18 Meagan Caro, MANJINDER [address] [place] [address] Specialty Housekeeper Child Care Hematology/Oncology 08/07/21 Luis Miguel Guy MD [address] [place] [address] Hematology/Oncology 09/30/22 Tanja Patel LISW [address] [place] [address] Publications Distribution Clerk Hematology/Oncology 11/26/22 Claudia Smith [address] [place] [phone] Vascular Medicine 11/26/23 Jack Pearson MD [address] [place] [address] Radiation Oncology 08/06/24 Transportation Attendant Relationship Specialty Start Date End Date Silverio Bolivar, PET TRAINER [address] [place] [address] PCP - General Family Medicine 07/07/18 Kelvin Vidal MD [address] [address] [place] [address] Transportation Manager Urology 09/07/18 Meagan Caro, MANJINDER [address] [place] [address] Specialty Housekeeper Child Care Hematology/Oncology 08/07/21 Luis Miguel Guy MD [address] [place] [address] Hematology/Oncology 09/30/22 Tanja Patel LISW [address] [place] [address] Publications Distribution Clerk Hematology/Oncology 11/26/22 Claudia Smith [address] [place] [address] Vascular Medicine 11/26/23 Jack Pearson MD [address] [place], [place] [address] Radiation Oncology 08/06/24 Transportation Attendant Relationship Specialty Start Date End Date Silverio Bolivar, PET TRAINER [address] [place] [id number] PCP - General Family Medicine 07/07/18 Kelvin Vidal MD [address] [place] [address] [place], [place] [address] Transportation Manager Urology 09/07/18 Meagan Caro, RN [address] [place] [address] Specialty Housekeeper Child Care Hematology/Oncology 08/07/21 Luis Miguel Guy MD [address] [place], [place] [address] Hematology/Oncology 09/30/22 Tanja Patel LISW [address] [place] [address] Publications Distribution Clerk Hematology/Oncology 11/26/22 Claudia Smith [address] [place] [address] Vascular Medicine 11/26/23 Jack Pearson MD [address] [place] [address] Radiation Oncology 08/06/24 Transportation Attendant Relationship Specialty Start Date End Date Silverio Bolivar, PET TRAINER [address] [place] [address] PCP - General Family Medicine 07/07/18 Kelvin Vidal MD [address] [place] [address] [place], [place] [address]19[address] Transportation Manager Urology 09/07/18 Meagan Caro, MANJINDER [address] [place] [address] Specialty Housekeeper Child Care Hematology/Oncology 08/07/21 Luis Miguel Guy MD [address] [place] [address] Hematology/Oncology 09/30/22 Tanja Patel LISW [address] [place] [address] Publications Distribution Clerk Hematology/Oncology 11/26/22 Claudia Smith [address] [place] [address] Vascular Medicine 11/26/23 Jack Pearson MD [address] [place], [place] [address] Radiation Oncology 08/06/24 Transportation Attendant Relationship Specialty Start Date End Date Silverio Bolivar, PET TRAINER [address] [place] [address] PCP - General Family Medicine 07/07/18 Kelvin Vidal MD [address] [address] [place], [place] [address] Transportation Manager Urology 09/07/18 Meagan Caro, RN [address] [place], [place] [address] Specialty Housekeeper Child Care Hematology/Oncology 08/07/21 Luis Miguel Guy MD [address] [place] [address] Hematology/Oncology 09/30/22 Tanja Patel LISW [address] [place] [address] Publications Distribution Clerk Hematology/Oncology 11/26/22 Claudia Smith [address] [place] [address] Vascular Medicine 11/26/23 Jack Pearson MD [address] [place], [place] [address] Radiation Oncology 08/06/24 Team Status: Active Member Role/Relationship Status Dates Silverio Bolivar HAND STEMMER, HAND STEMMER-C Primary Care Provider Active Team Status: Inactive Member Role/Relationship Status Dates Silverio Bolivar HAND STEMMER, HAND STEMMER-C Primary Care Provider Active Start: October 01, 2024 End: October 01, 2024 JOHNNY Corrales Attending Provider Active Star t: October 01, 2024 End: October 01, 2024 JOHNNY Corrales Referring Provider Active Star t: October 01, 2024 End: October 01, 2024 Team Status: Active Member Role/Relationship Status Dates Silverio Bolivar HAND STEMMER, HAND STEMMER-C Primary Care Provider Active Start: October 01, 2024 Dr. Sreedhar Coppola MD Attending Provider Active S tart: October 01, 2024 Team Status: Active Member Role/Relationship Status Dates Silverio Bolivar HAND STEMMER, HAND STEMMER-C Primary care physicia n Active Team Status: Inactive Member Role/Relationship Status Dates Silverio Bo Bolivar NP, HAND STEMMER-C Primary care physicia n Active Start: October 01, 2024 End: October 01, 2024 JOHNNY Corrales Attending physician Active Sta rt: October 01, 2024 End: October 01, 2024 JOHNNY Corrales Referring Provider Active Star t: October 01, 2024 End: October 01, 2024 Team Status: Active Member Role/Relationship Status Dates Silverio Bolivar NP, HAND STEMMER-C Primary care physicia n Active Start: October 01, 2024 Dr. Sreedhar Coppola MD Attending physician Active Start: October 01, 2024 JOHNNY Corrales Referring Provider Active Star t: October 01, 2024 Team Status: Inactive Member Role/Relationship Status Dates Silverio Bolivar HAND STEMMER, HAND STEMMER-C Primary care physician Active Start: November 29, 2024 End: November 29, 2024 Claudia Smith NP, HAND STEMMER-C Attending physician Active Start: November 29, 2024 End: November 29, 2024 Claudia Smith NP, HAND STEMMER-C Referring Provider Active Start: November 29, 2024 End: November 29, 2024 Team Status: Inactive Member Role/Relationship Status Dates Silverio Bolivar HAND STEMMER, HAND STEMMER-C Primary care physician Active Start: December 282024 End: December 28, 2024 Silverio Bolivar HAND STEMMER, HAND STEMMER-C Referring Provider Active Start: December 28, 2024 End: December 28, 2024 Claudia Smith NP, HAND STEMMER-C Attending physician Active Start: December 28, 2024 End: December 28, 2024 Source Comments (unrecognize d section and content) In the event this informatio n is protected by the Federal Confidentiality of Alcohol and Drug Abuse Patient Records regulations: The Federal rules restrict any use of the information to criminally investigate or prosecute any alcohol or drug abuse patient.[facility] Health AdministrationIn the event this information is protected by the Federal Confidentiality of Alcohol and Drug Abuse Patient Records regulations: The Federal rules restrict any use of the information to criminally investigate or prosecute any alcohol or drug abuse patient.[facility] AdministrationIn the event this information is protected by the Federal Confidentiality of Alcohol and Drug Abuse Patient Records regulations: The Federal rules restrict any use of the information to criminally investigate or prosecute any alcohol or drug abuse patient.[facility] AdministrationIn the event this information is protected by the Federal Confidentiality of Alcohol and Drug Abuse Patient Records regulations: The Federal rules restrict any use of the information to criminally investigate or prosecute any alcohol or drug abuse patient.[facility] AdministrationIn the event this information is protected by the Federal Confidentiality of Alcohol and Drug Abuse Patient Records regulations: The Federal rules restrict any use of the information to criminally investigate or prosecute any alcohol or drug abuse patient.[facility] AdministrationIn the event this information is protected by the Federal Confidentiality of Alcohol and Drug Abuse Patient Records regulations: The Federal rules restrict any use of the information to criminally investigate or prosecute any alcohol or drug abuse patient.[facility] AdministrationIn the event this information is protected by the Federal Confidentiality of Alcohol and Drug Abuse Patient Records regulations: The Federal rules restrict any use of the information to criminally investigate or prosecute any alcohol or drug abuse patient.[facility] AdministrationIn the event this information is protected by the Federal Confidentiality of Alcohol and Drug Abuse Patient Records regulations: The Federal rules restrict any use of the information to criminally investigate or prosecute any alcohol or drug abuse patient.[facility] AdministrationIn the event this information is protected by the Federal Confidentiality of Alcohol and Drug Abuse Patient Records regulations: The Federal rules restrict any use of the information to criminally investigate or prosecute any alcohol or drug abuse patient.[facility] AdministrationIn the event this information is protected by the Federal Confidentiality of Alcohol and Drug Abuse Patient Records regulations: The Federal rules restrict any use of the information to criminally investigate or prosecute any alcohol or drug abuse patient.[facility] AdministrationIn the event this information is protected by the Federal Confidentiality of Alcohol and Drug Abuse Patient Records regulations: The Federal rules restrict any use of the information to criminally investigate or prosecute any alcohol or drug abuse patient.[facility] AdministrationIn the event this information is protected by the Federal Confidentiality of Alcohol and Drug Abuse Patient Records regulations: The Federal rules restrict any use of the information to criminally investigate or prosecute any alcohol or drug abuse patient.[facility] AdministrationIn the event this information is protected by the Federal Confidentiality of Alcohol and Drug Abuse Patient Records regulations: The Federal rules restrict any use of the information to criminally investigate or prosecute any alcohol or drug abuse patient.[facility] AdministrationIn the event this information is protected by the Federal Confidentiality of Alcohol and Drug Abuse Patient Records regulations: The Federal rules restrict any use of the information to criminally investigate or prosecute any alcohol or drug abuse patient.[facility] AdministrationIn the event this information is protected by the Federal Confidentiality of Alcohol and Drug Abuse Patient Records regulations: The Federal rules restrict any use of the information to criminally investigate or prosecute any alcohol or drug abuse patient.[facility] AdministrationIn the event this information is protected by the Federal Confidentiality of Alcohol and Drug Abuse Patient Records regulations: The Federal rules restrict any use of the information to criminally investigate or prosecute any alcohol or drug abuse patient.[facility] AdministrationIn the event this information is protected by the Federal Confidentiality of Alcohol and Drug Abuse Patient Records regulations: The Federal rules restrict any use of the information to criminally investigate or prosecute any alcohol or drug abuse patient.[facility] AdministrationIn the event this information is protected by the Federal Confidentiality of Alcohol and Drug Abuse Patient Records regulations: The Federal rules restrict any use of the information to criminally investigate or prosecute any alcohol or drug abuse patient.[facility] AdministrationIn the event this information is protected by the Federal Confidentiality of Alcohol and Drug Abuse Patient Records regulations: The Federal rules restrict any use of the information to criminally investigate or prosecute any alcohol or drug abuse patient.[facility] AdministrationIn the event this information is protected by the Federal Confidentiality of Alcohol and Drug Abuse Patient Records regulations: The Federal rules restrict any use of the information to criminally investigate or prosecute any alcohol or drug abuse patient.[facility] AdministrationIn the event this information is protected by the Federal Confidentiality of Alcohol and Drug Abuse Patient Records regulations: The Federal rules restrict any use of the information to criminally investigate or prosecute any alcohol or drug abuse patient.[facility] AdministrationIn the event this information is protected by the Federal Confidentiality of Alcohol and Drug Abuse Patient Records regulations: The Federal rules restrict any use of the information to criminally investigate or prosecute any alcohol or drug abuse patient.[facility] AdministrationIn the event this information is protected by the Federal Confidentiality of Alcohol and Drug Abuse Patient Records regulations: The Federal rules restrict any use of the information to criminally investigate or prosecute any alcohol or drug abuse patient.[facility] AdministrationIn the event this information is protected by the Federal Confidentiality of Alcohol and Drug Abuse Patient Records regulations: The Federal rules restrict any use of the information to criminally investigate or prosecute any alcohol or drug abuse patient.[facility] AdministrationIn the event this information is protected by the Federal Confidentiality of Alcohol and Drug Abuse Patient Records regulations: The Federal rules restrict any use of the information to criminally investigate or prosecute any alcohol or drug abuse patient.[facility] AdministrationIn the event this information is protected by the Federal Confidentiality of Alcohol and Drug Abuse Patient Records regulations: The Federal rules restrict any use of the information to criminally investigate or prosecute any alcohol or drug abuse patient.[facility] AdministrationIn the event this information is protected by the Federal Confidentiality of Alcohol and Drug Abuse Patient Records regulations: The Federal rules restrict any use of the information to criminally investigate or prosecute any alcohol or drug abuse patient.[facility] AdministrationIn the event this information is protected by the Federal Confidentiality of Alcohol and Drug Abuse Patient Records regulations: The Federal rules restrict any use of the information to criminally investigate or prosecute any alcohol or drug abuse patient.[facility] AdministrationIn the event this information is protected by the Federal Confidentiality of Alcohol and Drug Abuse Patient Records regulations: The Federal rules restrict any use of the information to criminally investigate or prosecute any alcohol or drug abuse patient.[facility] AdministrationIn the event this information is protected by the Federal Confidentiality of Alcohol and Drug Abuse Patient Records regulations: The Federal rules restrict any use of the information to criminally investigate or prosecute any alcohol or drug abuse patient.[facility] AdministrationIn the event this information is protected by the Federal Confidentiality of Alcohol and Drug Abuse Patient Records regulations: The Federal rules restrict any use of the information to criminally investigate or prosecute any alcohol or drug abuse patient.[facility] AdministrationIn the event this information is protected by the Federal Confidentiality of Alcohol and Drug Abuse Patient Records regulations: The Federal rules restrict any use of the information to criminally investigate or prosecute any alcohol or drug abuse patient.[facility] AdministrationIn the event this information is protected by the Federal Confidentiality of Alcohol and Drug Abuse Patient Records regulations: The Federal rules restrict any use of the information to criminally investigate or prosecute any alcohol or drug abuse patient.[facility] AdministrationIn the event this information is protected by the Federal Confidentiality of Alcohol and Drug Abuse Patient Records regulations: The Federal rules restrict any use of the information to criminally investigate or prosecute any alcohol or drug abuse patient.[facility] AdministrationIn the event this information is protected by the Federal Confidentiality of Alcohol and Drug Abuse Patient Records regulations: The Federal rules restrict any use of the information to criminally investigate or prosecute any alcohol or drug abuse patient.[facility] AdministrationIn the event this information is protected by the Federal Confidentiality of Alcohol and Drug Abuse Patient Records regulations: The Federal rules restrict any use of the information to criminally investigate or prosecute any alcohol or drug abuse patient.[facility] AdministrationIn the event this information is protected by the Federal Confidentiality of Alcohol and Drug Abuse Patient Records regulations: The Federal rules restrict any use of the information to criminally investigate or prosecute any alcohol or drug abuse patient.[facility] AdministrationIn the event this information is protected by the Federal Confidentiality of Alcohol and Drug Abuse Patient Records regulations: The Federal rules restrict any use of the information to criminally investigate or prosecute any alcohol or drug abuse patient.[facility] AdministrationIn the event this information is protected by the Federal Confidentiality of Alcohol and Drug Abuse Patient Records regulations: The Federal rules restrict any use of the information to criminally investigate or prosecute any alcohol or drug abuse patient.[facility] AdministrationIn the event this information is protected by the Federal Confidentiality of Alcohol and Drug Abuse Patient Records regulations: The Federal rules restrict any use of the information to criminally investigate or prosecute any alcohol or drug abuse patient.[facility] AdministrationIn the event this information is protected by the Federal Confidentiality of Alcohol and Drug Abuse Patient Records regulations: The Federal rules restrict any use of the information to criminally investigate or prosecute any alcohol or drug abuse patient.[facility] AdministrationIn the event this information is protected by the Federal Confidentiality of Alcohol and Drug Abuse Patient Records regulations: The Federal rules restrict any use of the information to criminally investigate or prosecute any alcohol or drug abuse patient.[facility] AdministrationIn the event this information is protected by the Federal Confidentiality of Alcohol and Drug Abuse Patient Records regulations: The Federal rules restrict any use of the information to criminally investigate or prosecute any alcohol or drug abuse patient.[facility] AdministrationIn the event this information is protected by the Federal Confidentiality of Alcohol and Drug Abuse Patient Records regulations: The Federal rules restrict any use of the information to criminally investigate or prosecute any alcohol or drug abuse patient.[facility] AdministrationIn the event this information is protected by the Federal Confidentiality of Alcohol and Drug Abuse Patient Records regulations: The Federal rules restrict any use of the information to criminally investigate or prosecute any alcohol or drug abuse patient.[facility] AdministrationIn the event this information is protected by the Federal Confidentiality of Alcohol and Drug Abuse Patient Records regulations: The Federal rules restrict any use of the information to criminally investigate or prosecute any alcohol or drug abuse patient.[facility] AdministrationIn the event this information is protected by the Federal Confidentiality of Alcohol and Drug Abuse Patient Records regulations: The Federal rules restrict any use of the information to criminally investigate or prosecute any alcohol or drug abuse patient.[facility] AdministrationIn the event this information is protected by the Federal Confidentiality of Alcohol and Drug Abuse Patient Records regulations: The Federal rules restrict any use of the information to criminally investigate or prosecute any alcohol or drug abuse patient.[facility] AdministrationIn the event this information is protected by the Federal Confidentiality of Alcohol and Drug Abuse Patient Records regulations: The Federal rules restrict any use of the information to criminally investigate or prosecute any alcohol or drug abuse patient.[facility] AdministrationIn the event this information is protected by the Federal Confidentiality of Alcohol and Drug Abuse Patient Records regulations: The Federal rules restrict any use of the information to criminally investigate or prosecute any alcohol or drug abuse patient.[facility] AdministrationIn the event this information is protected by the Federal Confidentiality of Alcohol and Drug Abuse Patient Records regulations: The Federal rules restrict any use of the information to criminally investigate or prosecute any alcohol or drug abuse patient.[facility] AdministrationIn the event this information is protected by the Federal Confidentiality of Alcohol and Drug Abuse Patient Records regulations: The Federal rules restrict any use of the information to criminally investigate or prosecute any alcohol or drug abuse patient.[facility] AdministrationIn the event this information is protected by the Federal Confidentiality of Alcohol and Drug Abuse Patient Records regulations: The Federal rules restrict any use of the information to criminally investigate or prosecute any alcohol or drug abuse patient.[facility] AdministrationIn the event this information is protected by the Federal Confidentiality of Alcohol and Drug Abuse Patient Records regulations: The Federal rules restrict any use of the information to criminally investigate or prosecute any alcohol or drug abuse patient.[facility] AdministrationIn the event this information is protected by the Federal Confidentiality of Alcohol and Drug Abuse Patient Records regulations: The Federal rules restrict any use of the information to criminally investigate or prosecute any alcohol or drug abuse patient.[facility] AdministrationIn the event this information is protected by the Federal Confidentiality of Alcohol and Drug Abuse Patient Records regulations: The Federal rules restrict any use of the information to criminally investigate or prosecute any alcohol or drug abuse patient.[facility] AdministrationIn the event this information is protected by the Federal Confidentiality of Alcohol and Drug Abuse Patient Records regulations: The Federal rules restrict any use of the information to criminally investigate or prosecute any alcohol or drug abuse patient.[facility] AdministrationIn the event this information is protected by the Federal Confidentiality of Alcohol and Drug Abuse Patient Records regulations: The Federal rules restrict any use of the information to criminally investigate or prosecute any alcohol or drug abuse patient.[facility] AdministrationIn the event this information is protected by the Federal Confidentiality of Alcohol and Drug Abuse Patient Records regulations: The Federal rules restrict any use of the information to criminally investigate or prosecute any alcohol or drug abuse patient.[facility] AdministrationIn the event this information is protected by the Federal Confidentiality of Alcohol and Drug Abuse Patient Records regulations: The Federal rules restrict any use of the information to criminally investigate or prosecute any alcohol or drug abuse patient.[facility] AdministrationIn the event this information is protected by the Federal Confidentiality of Alcohol and Drug Abuse Patient Records regulations: The Federal rules restrict any use of the information to criminally investigate or prosecute any alcohol or drug abuse patient.[facility] AdministrationIn the event this information is protected by the Federal Confidentiality of Alcohol and Drug Abuse Patient Records regulations: The Federal rules restrict any use of the information to criminally investigate or prosecute any alcohol or drug abuse patient.[facility] AdministrationIn the event this information is protected by the Federal Confidentiality of Alcohol and Drug Abuse Patient Records regulations: The Federal rules restrict any use of the information to criminally investigate or prosecute any alcohol or drug abuse patient.[facility] AdministrationIn the event this information is protected by the Federal Confidentiality of Alcohol and Drug Abuse Patient Records regulations: The Federal rules restrict any use of the information to criminally investigate or prosecute any alcohol or drug abuse patient.[facility] AdministrationIn the event this information is protected by the Federal Confidentiality of Alcohol and Drug Abuse Patient Records regulations: The Federal rules restrict any use of the information to criminally investigate or prosecute any alcohol or drug abuse patient.[facility] AdministrationIn the event this information is protected by the Federal Confidentiality of Alcohol and Drug Abuse Patient Records regulations: The Federal rules restrict any use of the information to criminally investigate or prosecute any alcohol or drug abuse patient.[facility] AdministrationIn the event this information is protected by the Federal Confidentiality of Alcohol and Drug Abuse Patient Records regulations: The Federal rules restrict any use of the information to criminally investigate or prosecute any alcohol or drug abuse patient.[facility] AdministrationIn the event this information is protected by the Federal Confidentiality of Alcohol and Drug Abuse Patient Records regulations: The Federal rules restrict any use of the information to criminally investigate or prosecute any alcohol or drug abuse patient.[facility] AdministrationIn the event this information is protected by the Federal Confidentiality of Alcohol and Drug Abuse Patient Records regulations: The Federal rules restrict any use of the information to criminally investigate or prosecute any alcohol or drug abuse patient.[facility] AdministrationIn the event this information is protected by the Federal Confidentiality of Alcohol and Drug Abuse Patient Records regulations: The Federal rules restrict any use of the information to criminally investigate or prosecute any alcohol or drug abuse patient.[facility] AdministrationIn the event this information is protected by the Federal Confidentiality of Alcohol and Drug Abuse Patient Records regulations: The Federal rules restrict any use of the information to criminally investigate or prosecute any alcohol or drug abuse patient.[facility] AdministrationIn the event this information is protected by the Federal Confidentiality of Alcohol and Drug Abuse Patient Records regulations: The Federal rules restrict any use of the information to criminally investigate or prosecute any alcohol or drug abuse patient.[facility] AdministrationIn the event this information is protected by the Federal Confidentiality of Alcohol and Drug Abuse Patient Records regulations: The Federal rules restrict any use of the information to criminally investigate or prosecute any alcohol or drug abuse patient.[facility] AdministrationIn the event this information is protected by the Federal Confidentiality of Alcohol and Drug Abuse Patient Records regulations: The Federal rules restrict any use of the information to criminally investigate or prosecute any alcohol or drug abuse patient.[facility] AdministrationIn the event this information is protected by the Federal Confidentiality of Alcohol and Drug Abuse Patient Records regulations: The Federal rules restrict any use of the information to criminally investigate or prosecute any alcohol or drug abuse patient.[facility] AdministrationIn the event this information is protected by the Federal Confidentiality of Alcohol and Drug Abuse Patient Records regulations: The Federal rules restrict any use of the information to criminally investigate or prosecute any alcohol or drug abuse patient.[facility] AdministrationIn the event this information is protected by the Federal Confidentiality of Alcohol and Drug Abuse Patient Records regulations: The Federal rules restrict any use of the information to criminally investigate or prosecute any alcohol or drug abuse patient.[facility] AdministrationIn the event this information is protected by the Federal Confidentiality of Alcohol and Drug Abuse Patient Records regulations: The Federal rules restrict any use of the information to criminally investigate or prosecute any alcohol or drug abuse patient.[facility] AdministrationIn the event this information is protected by the Federal Confidentiality of Alcohol and Drug Abuse Patient Records regulations: The Federal rules restrict any use of the information to criminally investigate or prosecute any alcohol or drug abuse patient.[facility] AdministrationIn the event this information is protected by the Federal Confidentiality of Alcohol and Drug Abuse Patient Records regulations: The Federal rules restrict any use of the information to criminally investigate or prosecute any alcohol or drug abuse patient.[facility] AdministrationIn the event this information is protected by the Federal Confidentiality of Alcohol and Drug Abuse Patient Records regulations: The Federal rules restrict any use of the information to criminally investigate or prosecute any alcohol or drug abuse patient.[facility] AdministrationIn the event this information is protected by the Federal Confidentiality of Alcohol and Drug Abuse Patient Records regulations: The Federal rules restrict any use of the information to criminally investigate or prosecute any alcohol or drug abuse patient.[facility] AdministrationIn the event this information is protected by the Federal Confidentiality of Alcohol and Drug Abuse Patient Records regulations: The Federal rules restrict any use of the information to criminally investigate or prosecute any alcohol or drug abuse patient.[facility] AdministrationIn the event this information is protected by the Federal Confidentiality of Alcohol and Drug Abuse Patient Records regulations: The Federal rules restrict any use of the information to criminally investigate or prosecute any alcohol or drug abuse patient.[facility] AdministrationIn the event this information is protected by the Federal Confidentiality of Alcohol and Drug Abuse Patient Records regulations: The Federal rules restrict any use of the information to criminally investigate or prosecute any alcohol or drug abuse patient.[facility] Reason for Visit (unrecogniz ed section and content) Reason Comments Chemotherapy Treatment Specialty Diagnoses / Procedures Referred By Contac t Referred To Contact Hematology / HEMATOLOGY/ONCOLOGY Diagnoses Malignant neoplasm of prostate C61 (ICD-10-CM) - Malignant neoplasm of prostate Procedures INJECTION, ZOLEDRONIC ACID, 1 MG BONE MODIFYING AGENT: $ - Q3 MONTHS IF CRCL IS GREATER THAN 30 ML/MIN Rogelio Bee MD [address] [place] [id number] [facility] [address] [place] [address] Referral ID Status Reason Start Date Expiration Date V isits Requested Visits Authorized [id number] Authorized 10/22/2019 10/01/2023 21 21 Reason Comments Non-Chemotherapy Treatment Specialty Diagnoses / Procedures Referred By Contac t Referred To Contact Hematology / HEMATOLOGY/ONCOLOGY Diagnoses Malignant neoplasm of prostate C61 (ICD-10-CM) - Malignant neoplasm of prostate Procedures INJECTION, ZOLEDRONIC ACID, 1 MG BONE MODIFYING AGENT: $ - Q3 MONTHS IF CRCL IS GREATER THAN 30 ML/MIN Rogelio Bee MD [address] [place] [address] [facility] [address] [place] [address] Referral ID Status Reason Start Date Expiration Date V isits Requested Visits Authorized [id number] Authorized 10/22/2019 08/29/2022 16 16 Referral ID Status Reason Start Date Expiration Date V isits Requested Visits Authorized [id number] Authorized 10/22/2019 05/28/2022 15 15 Referral ID Status Reason Start Date Expiration Date V isits Requested Visits Authorized [id number] Pending Review 10/22/2019 10/23/2021 16 16 Reason Comments Established Patient Reason Comments Refill Request Referral ID Status Reason Start Date Expiration Date V isits Requested Visits Authorized [id number] Authorized 10/22/2019 05/28/2022 7 14 Reason Onset Date Comments Refill Request 11/26/2021 Reason Comments Orders Reason Comments Patient Question Reason Comments Patient Update Call from [facility] Reason Onset Date Comments Refill Request 03/05/2022 Reason Comments Results Patient Update Reason Comments repeat orders Reason Comments Established Patient Reason Comments Results Reason Comments Social Work Services Reason Comments Insurance Authorization [employer] Reason Onset Date Comments Refill Request 06/27/2022 Reason Comments Appointment RESCHEDULE Reason Comments Future Appointment Reason Comments Medication Request Reason Onset Date Comments SPP Oral Oncology/hematology - Treatment Referra l 12/24/2022 [facility] Insurance Authorization 12/24/2022 Pending PA Reason Comments [facility] Assistance Reason Comments Benefits Investigation Reason Comments Follow Up Reason Comments Radiology US Specialty Diagnoses / Procedures Referred By Contac t Referred To Contact US IMAGING Diagnoses Malignant neoplasm of prostate (HCC) Bone metastases Right upper quadrant abdominal pain Elevated liver enzymes Procedures US ABD RT UPPER QUADRANT US ABDOMINAL REAL TIME W/IMAGE LIMITED Vianney Garcia APRN.PET TRAINER [address] [place] [address] [place] [address] Referral ID Status Reason Start Date Expiration Date V isits Requested Visits Authorized [id number] Closed Auto-Generate d Referral 04/16/2022 05/16/2023 1 1 Reason Comments Care Coordination [facility] Reason Comments Medication Question Reason Comments Care Coordination ORAL ANTI-CANCER AGE NTS FOLLOW-UP PHONE CALL Specialty Diagnoses / Procedures Referred By [facility] Referred To Contact Hematology / HEMATOLOGY/ONCOLOGY Diagnoses Malignant neoplasm of prostate C61 (ICD-10-CM) - Malignant neoplasm of prostate Procedures INJECTION, ZOLEDRONIC ACID, 1 MG BONE MODIFYING AGENT: $ - Q3 MONTHS IF CRCL IS GREATER THAN 30 ML/MIN Rogelio Bee MD [address] [place] [address] [facility] [address] [place] [address] 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 Referral ID Status Reason Start Date Expiration Date V isits Requested Visits Authorized [id number] Authorized 10/22/2019 11/20/2024 25 25 Reason Comments Financial Navigation Reason Comments 2024 [facility] Patient Assistance Reason Comments [facility] Assistance [facility] [place] Payment Info Reason Onset Date Comments SPP Oral Oncology/hematology - Treatment Referra l 04/29/2024 [facility] 40 mg Insurance Authorization 04/29/2024 PA Reason Comments Patient Update Reason Onset Date Comments SPP Oral Oncology/hematology - Medication Refill 06/01/2024 [facility] Reason Onset Date Comments SPP Oral Oncology/hematology - Medication Refill 08/06/2024 [facility] 40mg Reason Comments Established Patient Reason Comments Patient Education Reason Onset Date Comments Simulation Request Form 08/10/2024 Reason Comments Consult Specialty Diagnoses / Procedures Referred By Jason galeas Referred To Contact Radiation Oncology Diagnoses Prostate cancer metastatic to bone (HCC) Procedures RAD/ONC CONSULT OFFICE/OUTPATIENT [facility] 60 MINUTES Luis Miguel Guy MD [address] [place] [address] Phone: tel: Referral ID Status Reason Start Date Expiration Date V isits Requested Visits Authorized [id number] Closed PCP Requested Referral 08/06/2024 08/06/2025 1 1 Reason Comments Radiotherapy On-treatment Visit Reason Onset Date Comments SPP Oral Oncology/hematology - Medication Refill 09/01/2024 [facility] 40 mg Reason Onset Date Comments Refill Request 09/13/2024 Reason Comments Follow Up Prostate Cancer Specialty Diagnoses / Procedures Referred By Jason galeas Referred To Contact Diagnoses Malignant neoplasm of prostate (HCC) Prostate cancer metastatic to bone (HCC) Procedures LEUPROLIDE ACETATE SUSPNSION Luis Miguel Guy MD [address] [place] [address] Phone: tel: Luis Miguel Guy MD [address] [place] [address] Phone: tel: Referral ID Status Reason Start Date Expiration Date V isits Requested Visits Authorized [id number] Authorized 02/18/2024 10/14/2024 5 5 Reason Comments Recheck Reason Onset Date Comments SPP Oral Oncology/hematology - Medication Refill 10/01/2024 [facility] 40 mg Reason Onset Date Comments SPP Oral Oncology/hematology - Medication Refill 11/01/2024 [facility] Care Team (unrecognized sect ion and content) Care Team Personnel Name: SILVERIO BOLIVAR APRN - PET TRAINER Position: P4 Advanced Practice Nurse Member Role: Primary Care Physician Address: Address: [address] [place] [address] Care Team Related Persons Name: TIFF NAGY Goals (unrecognized section and content) Goals may be documented in a n alternate section Inactive Administered Medications - up to 3 most recent administrations Administered Medications (un recognized section and content) Medication Order MAR Action Action Date Dose Rate Site leuprolide 22.5 mg injection (LUPRON DEPOT) 22.5 mg, INTRAMUSCULAR, ONCE, 1 dose, On Fri06/10/23 at 1200, Hazardous Chemotherapy Drug: Use appropriate PPE. Given 06/10/2023 11:48 AM EDT 22.5 mg Hip, Right zoledronic [id number] 4 mg iv piggyback 100 mL (ZOMETA) 4 mg, INTRAVENOUS, Administer over 15 Minutes, ONCE, 1 dose, On Fri06/10/23 at 1100, Hazardous Potential Reproductive Risk Drug: Use appropriate PPE. New Bag/Syringe/Bottl e 06/10/2023 11:22 AM EDT 4 mg 400 mL/hr (unrecognized sect ion and content) No Status Records FoundNo Status Records FoundNo Status Records FoundNo Status Records FoundNo Status Records FoundNo Status Records FoundNo Status Records FoundNo Status Records Found INFORMATION SOURCE (unrecogn ized section and content) DATE CREATED AUTHOR 09/03/2023 [facility] ([place]) DATE CREATED AUTHOR AUTHOR'S ORGANIZ ATION 12/04/2023 [facility] DATE CREATED AUTHOR AUTHOR'S ORGANIZ ATION 06/06/2024 [facility] DATE CREATED AUTHOR AUTHOR'S ORGANIZ ATION 08/04/2024 [facility] DATE CREATED AUTHOR AUTHOR'S ORGANIZ ATION 08/24/2024 [facility] DATE CREATED AUTHOR AUTHOR'S ORGANIZ ATION 09/10/2024 [facility] DATE CREATED AUTHOR AUTHOR'S ORGANIZ ATION 01/05/2025 [facility] DATE CREATED AUTHOR AUTHOR'S ORGANIZ ATION 01/18/2025 [facility] FOR RECORDS PERTAINING TO PATIENTS WHO ARE OR HAVE BEEN ENROLLED IN A CHEMICAL DEPENDENCY/SUBSTANCEABUSE PROGRAM, SOME INFORMATION MAY BE OMITTED. This clinical summary was aggregated from multiple sources. Caution should be exercised in using it in the provision of clinical care. This summary normalizes information from multiple sources, and as a consequence, information in this document may materially change the coding, format and clinical context of patient data. In addition, data may be omitted in some cases. CLINICAL DECISIONS SHOULD BE BASED ON THE PRIMARY CLINICAL RECORDS. [facility] [employer] [facility]. provides no warranty or guarantee of the accuracy or completeness of information in this document.
[2025-01-18 13:41] VITALS: PULSE 72; PULSE 77; PULSE 85; PULSE 88; PULSE 90; PULSE 91; PULSE 95; PULSE 96; O2SAT 89; O2SAT 91; O2SAT 92; O2SAT 93; O2SAT 95
--- NOTE | 2025-01-21 11:03 | WT_ITS ---
PSN 6 Minute Walk Test 6 Minute Walk Test 6 Minute Walk Test: 6 Minute Walk Test PSN:6-Minute Walk Test Start: 01/18/25 13:40 Freq: Status: Active Protocol: [id number] Document 01/18/25 13:41 JR (Rec: 01/18/25 13:48 JR [id number]) 6 Minute Walk Test Date Performed 01/18/25 Time Performed 13:15 Height 5 ft 10 in Weight: 210 lb Weight in Pounds 210.[address]: Claudia Smith [employer] Assistive device None used: Pre-test Oxygen Delivery Room Air Method Pulse Ox (%) 92 Pulse Rate (60-100 72 beats/min) Dyspnea Berry Scale ( 0 0-10) Exertion Berry Scale 6 (6-20) 1st minute Oxygen Delivery Room Air Method Pulse Ox (%) 93 Pulse Rate (60-100 88 beats/min) 2nd minute Oxygen Delivery Room Air Method Pulse Ox (%) 89 Pulse Rate (60-100 90 beats/min) 3rd minute Oxygen Delivery Room Air Method Pulse Ox (%) 91 Pulse Rate (60-100 91 beats/min) 4th minute Oxygen Delivery Room Air Method Pulse Ox (%) 91 Pulse Rate (60-100 85 beats/min) 5th minute Oxygen Delivery Room Air Method Pulse Ox (%) 91 Pulse Rate (60-100 95 beats/min) 6th minute Oxygen Delivery Room Air Method Pulse Ox (%) 89 Pulse Rate (60-100 96 beats/min) Dyspnea Berry Scale ( 3 0-10) Exertion Berry Scale 12 (6-20) Post-test Oxygen Delivery Room Air Method Pulse Ox (%) 95 Pulse Rate (60-100 77 beats/min) Full Laps Walked 9 Partial Lap, Number 0 of Tiles Walked Total Distance 531 Walked (ft) Interpretation Interpretation: The patient ambulated 531 feet over the course of 6 minutes beginning on room air without assistive devices. Pretesting oxygen saturation was noted to be 92% on room air. With ambulation, the juanita oxygen saturation was 89%. Although there was evidence of impaired walk distance, there was no significant exertional oxygen desaturation. Recommendations Recommendations: There is no indication for the use of supplemental oxygen at this time.
== END | disposition home or self-care (01) ==
LOC: PSN 12:55
PROVIDERS: PCP Nurse Practitioner Family; Referring Provider Nurse Practitioner Acute Care; Visit Provider Nurse Practitioner Acute Care
DX: J44.89 Other specified chronic obstructive pulmonary disease (principal)
CPT/HCPCS: 94618